=== PATIENT | female | born 1960 | race Caucasian/White ===

== ENCOUNTER 2020-03-02 21:09 | Emergency (ER) | payer OTHER, SELFPAY ==
[2020-03-02 21:34] VITALS: BP 120/64; PULSE 87; RESP 16; TEMP 37.2; O2SAT 97; BMI 32.5
--- NOTE | 2020-03-02 22:23 | ED.LOWEXIN ---
HPI - Extremity Injury (Lower) General Chief Complaint: Extremity Injury, Lower Stated Complaint: knee pain Time Seen by Provider: 03/02/20 22:12 Source: patient Mode of arrival: ambulatory History of Present Illness HPI Narrative: patient states of right knee pain for the past couple days. Also noted a lump to the right oral area. Patient denies trauma or. Denies fevers or chills denies skin changes or lacerations Injury: Right: knee Severity: mild Severity scale (1-10): 2 Exacerbating factors: nothing Related Data Previous Rx's Medication Instructions Recorded trazodone 50 mg tablet 50 mg PO BEDTIME PRN 90 Days #90 02/23/20 tab tramadol 50 mg PO BID PRN #14 tab 03/02/20 Allergies Allergy/AdvReac Type Severity Reaction Status Date / Time Penicillins [PENICILLINS] Allergy Intermediate RASH Unverified 02/08/20 18:07 (CHILDHOOD ALLERGY) penicillin V Allergy Unknown Unverified 01/03/20 00:00 Review of Systems Review of Systems: Constitutional : No Weight loss, No Fever, No Chills, No Night Sweats, No Fatigue, No Malaise ENT/Mouth : No Hearing loss, No Ear Pain, No Nasal Congestion, No Sinus Pain, No Hoarseness, No sore throat, No Rhinorrhea, No Swallowing Difficulty Eyes: No Eye Pain, No Swelling, No Redness, No Foreign Body, No Discharge, No Vision Changes Cardiovascular : No Chest Pain, No SOB, No Dyspnea on Exertion, No Orthopnea, No Edema, No Palpitations Respiratory : No Cough, No Sputum, No Wheezing, No Smoke Exposure, No Dyspnea Gastrointestinal : No Nausea, No Vomiting, No Diarrhea, No Constipation, No abdominal Pain, No Hematochezia, No Melena Genitourinary : no irregular bleeding, No Dysuria, No Urinary Frequency, No Hematuria, No Urinary Incontinence, No Urgency, No Flank Pain, No Urinary Flow Changes, No Hesitancy Musculoskeletal :No Myalgias, No Joint Swelling positiveright knee pain Skin : No Skin Lesions, No rash Neuro : No Weakness, No Numbness, No Paresthesias, No Loss of Consciousness, No Dizziness, No Headache Psych : No Anxiety/Panic, No Depression, No SI/HI/AH/VH, No Social Issues, Heme/Lymph: No Bruising, No Bleeding,No Lymphadenopathy Endocrine : No Polyuria, No Polydipsia, No Temperature Intolerance [facility] Past Medical History Medical History Acute anxiety Depression Insomnia Surgical History Previous back surgery Social History Social History Alcohol intake: former Smoked in Last 30 Days: Yes Substance Use Type: Marijuana Advance Directives: No Advance Directives Information Provided: Yes Physical Exam Vital Signs: Vital Signs: Vital Signs Temp Pulse Resp BP Pulse Ox 03/02/20 21:34 98.9 F 87 16 120/64 97 Body Mass Index 32.5 vital signs reviewed Appearance: Alert. Oriented X3. No acute distress. Eyes: Pupils equal, round and reactive to light. ENT: Pharynx normal. Neck: Normal inspection. Neck supple. No lymph nodes noted. No crepitus CVS: Normal heart rate and rhythm. Pulses normal. Normal S1 and S2 Respiratory: No respiratory distress. Breath sounds normal. No Wheezing. No rales Abdomen: Soft and nontender. No rigidity. No distention. good BS x4 Skin: Skin warm and dry. Normal skin color. Normal skin turgor. Extremities: No lower extremity edema. Neurovascular intact to all extremities. No Lacerations. No Rash. right knee without effusion no erythema no edema. Inferior to right knee lateral lump approximately 2 cm in diameter without erythema Neuro: Oriented X 3. No motor deficit. No sensory deficit. Moving all extermities. No slurred speech. Course Course Course Narrative: I placed a bedside ultrasound knee without any effusion noted. I discussed the patient needs to follow-up with orthopedic with possible cyst or lipoma evaluation MDM - Extremity Injury (Lower) MDM Narrative Medical decision making narrative: 59-year-old female with right knee pain with possible right lateral cyst or lipoma. No acute trauma no signs of septic joint Discharge Plan Discharge Clinical Impression: Cyst of skin Knee pain, right Qualifiers: Chronicity: unspecified Qualified Code(s): M25.561 - Pain in right knee Patient Disposition: Home, Self-Care Instructions: Cyst (ED) Additional Instructions: Thank you for visiting the emergency department today. If your symptoms worsen or do not resolve completely please return to the emergency department immediately or call 911. if he have any questions please call your primary care physician Prescriptions: New tramadol 50 mg tablet 50 mg PO BID PRN (Reason: pain) Qty: 14 RF: 0 No Action trazodone 50 mg tablet 50 mg PO BEDTIME PRN (Reason: sleep) 90 Days Qty: 90 RF: 3 Referrals: Enrique Sterling MD [Physician] - 2 days
--- NOTE | 2020-03-02 22:24 | PC.NURSE ---
DR. MCALLISTER PERFORMED US AT [facility].
== END 2020-03-02 22:37 | disposition home or self-care (01) ==
PROVIDERS: Emergency Provider Emergency Medicine; PCP Internal Medicine
DX: M25.561 Pain in right knee (principal); L72.8 Other follicular cysts of the skin and subcutaneous tissue; F12.90 Cannabis use, unspecified, uncomplicated; Z79.899 Other long term (current) drug therapy
CPT/HCPCS: 99283; 99284

== ENCOUNTER → 2020-03-22 14:40 | Outpatient (BNVA) | payer OTHER, SELFPAY | PROVIDERS: PCP Internal Medicine; Referring Provider Internal Medicine; Visit Provider Nurse Practitioner Family | DX: K21.9 Gastro-esophageal reflux disease without esophagitis (principal); R10.11 Right upper quadrant pain; F41.8 Other specified anxiety disorders; F17.210 Nicotine dependence, cigarettes, uncomplicated; Z88.0 Allergy status to penicillin; Z79.899 Other long term (current) drug therapy | CPT/HCPCS: 99212 ==

== ENCOUNTER 2020-04-29 12:09 | Outpatient (REF) | payer OTHER, SELFPAY ==
--- NOTE | 2020-04-29 12:11 | XR_ITS ---
EXAMINATION: AP STANDING KNEES AND LATERAL AND SUNRISE VIEWS OF THE RIGHT KNEE CLINICAL INFORMATION: Pain COMPARISON: None TECHNIQUE: AP standing view of both knees as well as sunrise and lateral views of the right knee. FINDINGS: AP standing views of both knees demonstrate chondrocalcinosis. No acute fracture or dislocation is evident. There appears to be mild narrowing of the medial joint space compartments bilaterally. [place] view of the right knee demonstrate maintenance of the patellofemoral joint without narrowing of the medial lateral facet space. There is minimal inferior spurring noted. No effusion is seen. XR/XR knee standing BI IMPRESSION: Mild degenerative change of the medial joint space compartments with chondrocalcinosis noted.
--- NOTE | 2020-04-29 12:11 | XR_ITS ---
EXAMINATION: AP STANDING KNEES AND LATERAL AND SUNRISE VIEWS OF THE RIGHT KNEE CLINICAL INFORMATION: Pain COMPARISON: None TECHNIQUE: AP standing view of both knees as well as sunrise and lateral views of the right knee. FINDINGS: AP standing views of both knees demonstrate chondrocalcinosis. No acute fracture or dislocation is evident. There appears to be mild narrowing of the medial joint space compartments bilaterally. [place] view of the right knee demonstrate maintenance of the patellofemoral joint without narrowing of the medial lateral facet space. There is minimal inferior spurring noted. No effusion is seen. XR/XR knee RT 2V IMPRESSION: Mild degenerative change of the medial joint space compartments with chondrocalcinosis noted.
== END 2020-04-29 12:10 | disposition home or self-care (01) ==
LOC: HO.HOSX 12:09
PROVIDERS: Visit Provider Orthopaedic Surgery
DX: M25.561 Pain in right knee (principal)
CPT/HCPCS: 73560; 73565; 99202

== ENCOUNTER 2020-09-16 09:33 | Outpatient (REF) | payer OTHER, SELFPAY ==
--- NOTE | ~2020-09-16 | XR_ITS ---
EXAMINATION: XR LUMBOSACRAL SPINE WITH OBLIQUES CLINICAL INFORMATION: Sciatica COMPARISON: CT abdomen and pelvis 10/06/2019 TECHNIQUE: Lumbar spine is imaged in 5 views: AP, lateral, lateral view coned to lumbosacral junction, and bilateral oblique. FINDINGS: There is normal lumbar segmentation with 5 nonrib-bearing lumbar vertebrae of normal height and normal lumbar lordosis. There is borderline dextrocurvature. There is no lumbar vertebral compression, spondylolisthesis, or spondylolysis. Again, there are post surgical changes L4-L5 with intradiscal cage. No bony destructive process. Degenerative disc changes again noted at L5-S1 with disc narrowing and vertebral spurring. The SI joints and visualized sacrum appear normal. XR/XR lumbar spine 4V min IMPRESSION: 1. Postoperative changes L4-L5 with intradiscal cage. No destructive process. 2. Degenerative disc changes L5-S1. 3. No vertebral compression, spondylolisthesis, or spondylolysis.
== END 2020-09-16 09:34 | disposition home or self-care (01) ==
LOC: HO.HMGCX 09:33
PROVIDERS: PCP Internal Medicine; Visit Provider Physician Assistant Medical
DX: M54.30 Sciatica, unspecified side (principal)
CPT/HCPCS: 72110

== ENCOUNTER → 2020-12-30 15:38 | Outpatient (BNVA) | payer OTHER, SELFPAY | PROVIDERS: PCP Physician Assistant; Referring Provider Physician Assistant; Visit Provider Surgery | DX: M67.40 Ganglion, unspecified site (principal) | CPT/HCPCS: 10021; 20612; 99202 ==

== ENCOUNTER 2021-03-22 08:16 | Inpatient (IN) | payer OTHER, SELFPAY ==
[2021-03-22 08:18] VITALS: BP 177/84; PULSE 80; RESP 18; TEMP 36.6; O2SAT 96; BMI 32.5
--- NOTE | 2021-03-22 08:23 | ED_ITS ---
HPI - Psych General Chief Complaint: Psychiatric Symptoms Stated Complaint: CRISIS Time Seen by Provider: 03/22/21 08:17 Source: patient and old records reviewed Mode of arrival: ambulatory Limitations: no limitations History of Present Illness MD complaint: suicidal ideation and feels depressed Onset (ago): day(s) (several) Duration: getting worse History of same: Yes Relieving factors: none Exacerbating factors: alcohol and drug use Context: recent alcohol abuse, recent drug abuse and significant life stressor Associated psychiatric symptoms: depression and suicidal ideation Associated symptoms: denies other symptoms If self harm: admits thoughts of self harm and has acted on plan Related Data Home Medications Medication Instructions Recorded Confirmed buprenorphine 4 mg-naloxone 1 mg 1 strip SUBLINGUAL DAILY 03/22/21 03/22/21 sublingual film (Suboxone) fluoxetine 40 mg capsule 80 mg PO DAILY 03/22/21 03/22/21 Previous Rx's Medication Instructions Recorded gabapentin 300 mg capsule 300 mg PO TID 30 Days #90 cap 11/21/20 albuterol sulfate 90 mcg/actuation 1 puff PO Q4H PRN #8.5 cap 02/22/21 aerosol inhaler (ProAir HFA) omeprazole 20 mg capsule,delayed 20 mg PO BID #60 cap 03/02/21 release hydroxyzine HCl 25 mg tablet 25 mg PO BEDTIME #30 tab 03/03/21 lorazepam 1 mg tablet 1 mg PO BID PRN 15 Days #30 tab 03/18/21 trazodone 100 mg tablet 100 mg PO BEDTIME 30 Days #30 tab 03/18/21 Allergies Allergy/AdvReac Type Severity Reaction Status Date / Time Penicillins [PENICILLINS] Allergy Intermediate RASH Verified 02/27/21 09:55 (CHILDHOOD ALLERGY) Review of Systems Review of Systems: Constitutional : No Fever, No Chills ENT/Mouth : No Ear Pain, No Nasal Congestion, No sore throat Eyes: No Eye Pain, No Swelling, No Redness Cardiovascular : No Chest Pain, No SOB Respiratory : No Cough, No Sputum, No Dyspnea Gastrointestinal : No Nausea, No Vomiting, No Diarrhea, No Hematochezia, No Melena Genitourinary : No Dysuria, No Urinary Frequency, No Hematuria Musculoskeletal : No Myalgias Skin : No Skin Lesions, No rash Neuro : No Weakness, No Numbness, No Paresthesias, No Dizziness, No Headache Psych : positive Anxiety, positive Depression, positive SI no HI Heme/Lymph: No Lymphadenopathy Endocrine : No Polyuria, No Polydipsia All other systems reviewed and are negative [facility] Past Medical History Attestation statement: The following information was validated with the patient. Medical History Acute anxiety Depression Depression Ganglion cyst GERD (gastroesophageal reflux disease) Insomnia Obese Otitis externa RUQ abdominal pain Tubular adenoma of colon Surgical History History of esophagogastroduodenoscopy (EGD) Hx of colonoscopy Previous back surgery Family History Family History Father Alzheimer disease Mother Stroke Brother Esophageal cancer Other Mental problem Substance abuse Social History Social History Household Members: Significant Other Housing: Apartment Alcohol intake: former Patient Tobacco Use Status: Current everyday Tobacco user Cigarette Packs Per Day: 1 Cigarettes Per Day: 20.0 e-Cigarette/Vaping Use: Currently Using Second Hand Smoke Exposure: No Use of substances other than those prescribed or required for medical reasons: Yes Substance Use Type: Heroin Substance Use Frequency: Recent Binge Last Used Substance: Days (ago) Any prior treatment program specific to substance use: No Advance Directives: No Advance Directives Information Provided: Yes Patient : No service: No Current occupational status: employed 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 Oriented X3. No acute distress. Anxious Eyes: Pupils equal, round and reactive to light. ENT: Pharynx normal. Neck: Normal inspection. Neck supple. CVS: Normal heart rate and rhythm. Pulses normal. Respiratory: No respiratory distress. Breath sounds normal. Abdomen: Soft and non-tender. Skin: Skin warm and dry. Normal skin color. Normal skin turgor. Extremities: No lower extremity edema. No calf ttp Neuro: Oriented X 3. No motor deficit. No sensory deficit. CN2-12 intact Psych: anxious, + SI Course Course Course Narrative: Physician observation started at 11am Patient placed in physician observation because the patient needed more time for CARE team assessment. At the time observation was started the patient's vitals were stable, patient is alert and oriented but slightly anxious Neuro: nonfocal, CV RRR, Lungs clear bed search per CARE team MDM - Psych MDM Narrative Medical decision making narrative: 60 yo female with hx of PTSD, GERD, insomnia here with c/o depression and substance abuse complains of SI - at this time labs, CARE team consult, PRN ativan. Lab Data Result diagrams: 03/22/21 10:15 03/22/21 10:15 Labs: Lab Results 03/22/21 03/22/21 03/22/21 Range/Units 09:39 10:03 10:15 WBC 7.7 (4.8-10.8) X10*3/uL RBC 4.33 (4.20-5.50) X10*6/uL Hgb 12.9 (12.0-16.0) g/dl Hct 38.2 (37.0-47.0) % MCV 88.2 (80.0-98.0) fL MCH 29.8 (27.0-33.0) pg MCHC 33.8 (31.0-35.0) g/dl RDW 15.1 (11.0-16.0) % Plt Count 173 (160-400) X10*3/uL MPV 9.8 (9.4-12.3) fL Immature Gran % (Auto) 0.4 (0.0-0.4) % Neut % (Auto) 69.1 (45-73) % Lymph % (Auto) 23.1 (20-40) % [place] % (Auto) 4.8 (2-11) % Eos % (Auto) 2.3 (0-4) % Baso % (Auto) 0.3 (0-2) % Lymph # (Auto) 1.8 (1.2-4.9) X10*3/uL [place] # (Auto) 0.4 (0.1-1.2) X10*3/uL Eos # (Auto) 0.2 (0.0-0.4) X10*3/uL Baso # (Auto) 0.0 (0.0-0.2) X10*3/uL Abs Immat Gran (auto) 0.03 (0.00-0.03) X10*3/uL Absolute Neuts (auto) 5.30 (2.0-8.3) x10*3/uL Absolute Nucleated RBC 0.000 (0.0-0.012) X10*3/uL Nucleated RBC % (auto) 0.0 (0.0-0.2) /100WBC Sodium (135-145) mmol/L Potassium (3.3-5.1) mmol/L Chloride (96-108) mmol/L Carbon Dioxide (22-29) mmol/L Anion Gap (12-20) BUN (9-16) mg/dL Creatinine (0.5-1.4) mg/dL Estim Creat Clear Calc Estimated GFR Random Glucose (60-115) mg/dL Calcium (8.4-10.2) mg/dL Total Bilirubin (0.0-1.0) mg/dL Direct Bilirubin (0.0-0.5) mg/dL AST (5-31) U/L ALT (0-31) U/L Alkaline Phosphatase (39-117) U/L Total Protein (6.5-8.0) g/dL Albumin (3.5-5.0) g/dL Urine Opiates Screen Not Detected (Not Detect) Urine Fentanyl Screen POSITIVE H (Not Detect) Ur Barbiturates Screen Not Detected (Not Detect) Ur Phencyclidine Scrn Not Detected (Not Detect) Ur Amphetamines Screen Not Detected (Not Detect) U Benzodiazepines Scrn Not Detected (Not Detect) Urine Cocaine Screen Not Detected (Not Detect) U Marijuana (THC) Screen POSITIVE H (Not Detect) Ethyl Alcohol mg/dL COVID-19 (NIURKA) Negative (Negative) COVID-19 Clin Com See Note 03/22/21 03/22/21 Range/Units 10:15 10:15 WBC (4.8-10.8) X10*3/uL RBC (4.20-5.50) X10*6/uL Hgb (12.0-16.0) g/dl Hct (37.0-47.0) % MCV (80.0-98.0) fL MCH (27.0-33.0) pg MCHC (31.0-35.0) g/dl RDW (11.0-16.0) % Plt Count (160-400) X10*3/uL MPV (9.4-12.3) fL Immature Gran % (Auto) (0.0-0.4) % Neut % (Auto) (45-73) % Lymph % (Auto) (20-40) % [place] % (Auto) (2-11) % Eos % (Auto) (0-4) % Baso % (Auto) (0-2) % Lymph # (Auto) (1.2-4.9) X10*3/uL [place] # (Auto) (0.1-1.2) X10*3/uL Eos # (Auto) (0.0-0.4) X10*3/uL Baso # (Auto) (0.0-0.2) X10*3/uL Abs Immat Gran (auto) (0.00-0.03) X10*3/uL Absolute Neuts (auto) (2.0-8.3) x10*3/uL Absolute Nucleated RBC (0.0-0.012) X10*3/uL Nucleated RBC % (auto) (0.0-0.2) /100WBC Sodium 138 (135-145) mmol/L Potassium 3.3 (3.3-5.1) mmol/L Chloride 102 (96-108) mmol/L Carbon Dioxide 26 (22-29) mmol/L Anion Gap 13 (12-20) BUN 16 (9-16) mg/dL Creatinine 0.65 (0.5-1.4) mg/dL Estim Creat Clear Calc 96.5 Estimated GFR > 60 Random Glucose 102 (60-115) mg/dL Calcium 9.2 (8.4-10.2) mg/dL Total Bilirubin 0.6 (0.0-1.0) mg/dL Direct Bilirubin 0.3 (0.0-0.5) mg/dL AST 28 (5-31) U/L ALT 32 H (0-31) U/L Alkaline Phosphatase 113 (39-117) U/L Total Protein 6.8 (6.5-8.0) g/dL Albumin 4.3 (3.5-5.0) g/dL Urine Opiates Screen (Not Detect) Urine Fentanyl Screen (Not Detect) Ur Barbiturates Screen (Not Detect) Ur Phencyclidine Scrn (Not Detect) Ur Amphetamines Screen (Not Detect) U Benzodiazepines Scrn (Not Detect) Urine Cocaine Screen (Not Detect) U Marijuana (THC) Screen (Not Detect) Ethyl Alcohol < 10 mg/dL COVID-19 (NIURKA) (Negative) COVID-19 Clin Com Discharge Plan Discharge Clinical Impression: Polysubstance abuse Depression Qualifiers: Depression Type: unspecified Qualified Code(s): F32.A - Depression, unspecified Prescriptions: No Action gabapentin 300 mg capsule 300 mg PO TID 30 Days Qty: 90 RF: 4 albuterol sulfate [ProAir HFA] 90 mcg/actuation HFA aerosol inhaler 1 puff PO Q4H PRN (Reason: bronchospasm) Qty: 8.5 RF: 0 omeprazole 20 mg capsule,delayed release(DR/EC) 20 mg PO BID Qty: 60 RF: 4 hydroxyzine HCl 25 mg tablet 25 mg PO BEDTIME Qty: 30 RF: 3 buprenorphine-naloxone [Suboxone] 4-1 mg film 1 strip sublingual DAILY RF: 0 fluoxetine 40 mg capsule 80 mg PO DAILY RF: 0 lorazepam 1 mg tablet 1 mg PO BID PRN (Reason: anxiety) 15 Days Qty: 30 RF: 1 trazodone 100 mg tablet 100 mg PO BEDTIME 30 Days Qty: 30 RF: 1
[2021-03-22] MEDS: Buprenorphine/Naloxone 4/1 mg FILM 1 FILM SUBLINGUAL (09:49)
[2021-03-22] MEDS: FLUoxetine HCl 20 MG CAPSULE 80 MG PO (09:49)
[2021-03-22] MEDS: LORazepam 1 MG TABLET PO (09:50)
[2021-03-22] MEDS: Gabapentin 300 MG CAPSULE PO ×2 (09:50→20:37)
[2021-03-22 10:19] LABS: MANUAL DIFF FLAG NO
[2021-03-22 10:22] LABS: COVID-19 Test Negative (Negative)
[2021-03-22 10:23] LABS: Amphetamine Screen Urine Not Detected (Not Detect); Barbiturates, Urine Not Detected (Not Detect); Benzodiazepines Screen Urine Not Detected (Not Detect); Cannabinoid Screen Urine POSITIVE (Not Detect); Cocaine Screen Urine Not Detected (Not Detect); Fentanyl, urine POSITIVE (Not Detect); Opiate Screen Urine Not Detected (Not Detect); Phencyclidine Screen Urine Not Detected (Not Detect)
[2021-03-22 10:43] LABS: Ethanol < 10 mg/dL
[2021-03-22 10:47] LABS: Alanine Aminotransferase 32 U/L (0-31); Albumin Level 4.3 g/dL (3.5-5.0); Alkaline Phosphatase 113 U/L (39-117); Anion Gap 13 (12-20); Aspartate Amino Transferase 28 U/L (5-31); Bilirubin Direct 0.3 mg/dL (0.0-0.5); Bilirubin Total 0.6 mg/dL (0.0-1.0); Blood Urea Nitrogen 16 mg/dL (9-16); Calcium 9.2 mg/dL (8.4-10.2); Carbon Dioxide 26 mmol/L (22-29); Chloride 102 mmol/L (96-108); Creatinine Clr Calc Pharmacy 96.5; Estimated Glomerular Filt Rate > 60; Glucose Random 102 mg/dL (60-115); Potassium 3.3 mmol/L (3.3-5.1); Sodium 138 mmol/L (135-145); Total Protein 6.8 g/dL (6.5-8.0)
[2021-03-22 10:52] LABS: Basophils Percent Auto 0.3 % (0-2); Eosinophils Absolute Auto 0.2 X10*3/uL (0.0-0.4); Eosinophils Percent Auto 2.3 % (0-4); Hematocrit 38.2 % (37.0-47.0); Hemoglobin 12.9 g/dl (12.0-16.0); Imm Gran Abs Auto 0.03 X10*3/uL (0.00-0.03); Imm Gran Pct Auto 0.4 % (0.0-0.4); Lymphocytes Absolute Auto 1.8 X10*3/uL (1.2-4.9); Lymphocytes Percent Auto 23.1 % (20-40); Mean Corpuscular HGB Conc 33.8 g/dl (31.0-35.0); Mean Corpuscular Hemoglobin 29.8 pg (27.0-33.0); Mean Corpuscular Volume 88.2 fL (80.0-98.0); Mean Platelet Volume 9.8 fL (9.4-12.3); Monocytes Absolute Auto 0.4 X10*3/uL (0.1-1.2); Monocytes Percent Auto 4.8 % (2-11); Neutrophils Percent Auto 69.1 % (45-73); Platelet Count 173 X10*3/uL (160-400); Red Blood Count 4.33 X10*6/uL (4.20-5.50); Red Cell Distribution Width 15.1 % (11.0-16.0); White Blood Count 7.7 X10*3/uL (4.8-10.8)
[2021-03-22 12:00] VITALS: BP 134/65; PULSE 80; RESP 14; TEMP 36.3; O2SAT 96
[2021-03-22] MEDS: Nicotine 21 MG PATCH.TD24 TRANSDERMA (13:24)
[2021-03-22 14:21] VITALS: BP 139/73; PULSE 77; RESP 18; TEMP 36.8; O2SAT 98
[2021-03-22 17:51] VITALS: BP 142/82; PULSE 115; RESP 20; TEMP 37.4; O2SAT 96
[2021-03-22 18:04] VITALS: BP 167/84; PULSE 72; RESP 16; TEMP 35.7; O2SAT 99; BMI 31.3
--- NOTE | 2021-03-22 19:24 | PC.ADMIT ---
Addendum entered by Moe Polanco RN 03/22/21 19:34: Pt reports depression, denies SI/HI. denies auditory and visual hallucination. Original Note: Pt is a 60 years old female admitted for depression anxiety and SI after attempting to complete suicide. She relapsed on heroin after quitting some years ago. Pt is alert and oriented X4, VSS, ANDERSON negative and covid negative. Pt appears her stated age and engaged in the assessment. She states she hopes to get her meds fixed. Pt reports episodes of confusion when driving, poor sleep with nightmares. Speech is clear and coherent, with normal rhythm tone and maxwell. urologic nurse provider notified, admit/transfer order obtained.
[2021-03-22] MEDS: Omeprazole 20 MG CAPSULE.DR PO (20:37)
[2021-03-22] MEDS: traZODone HCL 100 MG TABLET PO (20:37)
[2021-03-22] MEDS: hydrOXYzine HCL 25 MG TABLET PO (20:37)
[2021-03-23 06:00] VITALS: BP 135/71; PULSE 61; TEMP 36.3; O2SAT 95
--- NOTE | 2021-03-23 08:36 | HO.PSYADMNOT ---
HPI Date of Service: 03/23/21 Chief Complaint: Depression SI Sources of Information: patient interviewed, chart reviewed and crisis/core team assessment reviewed HPI Subjective Notes: Conditional Voluntary Healthcare Proxy: No Guardianship: No Medical Problems Affecting Mental Status: No Narrative: 60 MWF presented to ED after recent relapse on Heroin / fentanyl and possible intended OD. (describes it as impulsive). Initially identified no ppt but later : only brothers anniversary on Feb 21. He of CA esophagus. Pt also drinking 28 units of ETOH / week. Identifies it as a problem. Relapsed after 15 years clean off heroin. Hx IVDA. Denies Cocaine. Recent increase in Prozac from 40 to 80 mg caused anxiety. No psychosis/ bipolarity Hx unspecified PTSD which she did not elaborate Past Psychiatric History: No psych providers. Denies attempts/hospitalization Medical Evaluation Reviewed: Yes [facility] Medical History Acute anxiety Depression Depression Ganglion cyst GERD (gastroesophageal reflux disease) Insomnia Obese Otitis externa RUQ abdominal pain Tubular adenoma of colon Surgical History History of esophagogastroduodenoscopy (EGD) Hx of colonoscopy Previous back surgery Family History: Extensive subs abuse in family Social History: Lives with H . 2 grown children are local. 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 Substance History: Opioids: clean x 15 years, till recent relapse. Upset that it was heroin laced with fentanyl. Hx IVDA ETOH: Heavy weekly use. 28 units/week. Dependant pattern Trauma History: + but not elaborated Diagnostics Vital Signs (24Hr): Vital Signs - 24 hr 03/22/21 12:00 03/22/21 14:21 03/22/21 17:51 Temperature 97.4 F 98.3 F 99.4 F Pulse Rate 80 77 115 H Respiratory Rate 14 18 20 Blood Pressure 134/65 139/73 142/82 H Pulse Oximetry 96 98 96 03/22/21 18:04 03/23/21 06:00 Temperature 96.3 F L 97.3 F Pulse Rate 72 61 Respiratory Rate 16 Blood Pressure 167/84 H 135/71 Pulse Oximetry 99 95 Body Mass Index 31.3 Labs Results: 03/22/21 10:15 03/22/21 10:15 Labs: Laboratory Results - last 48 hr 03/22/21 03/22/21 03/22/21 09:39 10:03 10:15 WBC 7.7 RBC 4.33 Hgb 12.9 Hct 38.2 MCV 88.2 MCH 29.8 MCHC 33.8 RDW 15.1 Plt Count 173 MPV 9.8 Immature Gran % (Auto) 0.4 Neut % (Auto) 69.1 Lymph % (Auto) 23.1 [place] % (Auto) 4.8 Eos % (Auto) 2.3 Baso % (Auto) 0.3 Lymph # (Auto) 1.8 [place] # (Auto) 0.4 Eos # (Auto) 0.2 Baso # (Auto) 0.0 Abs Immat Gran (auto) 0.03 Absolute Neuts (auto) 5.30 Absolute Nucleated RBC 0.000 Nucleated RBC % (auto) 0.0 Sodium Potassium Chloride Carbon Dioxide Anion Gap BUN Creatinine Estim Creat Clear Calc Estimated GFR Random Glucose Calcium Total Bilirubin Direct Bilirubin AST ALT Alkaline Phosphatase Total Protein Albumin Urine Opiates Screen Not Detected Urine Fentanyl Screen POSITIVE H Ur Barbiturates Screen Not Detected Ur Phencyclidine Scrn Not Detected Ur Amphetamines Screen Not Detected U Benzodiazepines Scrn Not Detected Urine Cocaine Screen Not Detected U Marijuana (THC) Screen POSITIVE H Ethyl Alcohol COVID-19 ([facility]URKA) Negative COVID-19 Clin Com See Note 03/22/21 03/22/21 10:15 10:15 WBC RBC Hgb Hct MCV MCH MCHC RDW Plt Count MPV Immature Gran % (Auto) Neut % (Auto) Lymph % (Auto) [place] % (Auto) Eos % (Auto) Baso % (Auto) Lymph # (Auto) [place] # (Auto) Eos # (Auto) Baso # (Auto) Abs Immat Gran (auto) Absolute Neuts (auto) Absolute Nucleated RBC Nucleated RBC % (auto) Sodium 138 Potassium 3.3 Chloride 102 Carbon Dioxide 26 Anion Gap 13 BUN 16 Creatinine 0.65 Estim Creat Clear Calc 96.5 Estimated GFR > 60 Random Glucose 102 Calcium 9.2 Total Bilirubin 0.6 Direct Bilirubin 0.3 AST 28 ALT 32 H Alkaline Phosphatase 113 Total Protein 6.8 Albumin 4.3 Urine Opiates Screen Urine Fentanyl Screen Ur Barbiturates Screen Ur Phencyclidine Scrn Ur Amphetamines Screen U Benzodiazepines Scrn Urine Cocaine Screen U Marijuana (THC) Screen Ethyl Alcohol < 10 COVID-19 ([facility]KA) COVID-19 Clin Com Meds/Allergies Meds Home Medications Acetaminophen (Acetaminophen 325 Mg Tablet) 650 mg PO Q6H PRN PRN Reason: Headache/Pain Mild Scale (1-3) Al Hydroxide/Mg Hydroxide (Magnesium Hydrox/Alum Hydrox 30 Ml Oral.Susp) 30 ml PO Q6H PRN PRN Reason: Heartburn/Nausea Albuterol Sulfate (Albuterol Sulfate 90 Mcg 8 Gm Inhaler) 1 puff INHALE Q4H PRN PRN Reason: bronchospasm Buprenorphine/Naloxone (Buprenorphine/Naloxone 4/1 Mg Film) 1 film SUBLINGUAL DAILY [facility] Last Admin: 03/23/21 08:46 Dose: 1 film Documented by: Fluoxetine HCl (Fluoxetine Hcl 20 Mg Capsule) 60 mg PO DAILY [facility] Folic Acid (Folic Acid 1 Mg Tablet) 1 mg PO DAILY [facility] Last Admin: 03/23/21 11:17 Dose: 1 mg Documented by: Gabapentin (Gabapentin 300 Mg Capsule) 300 mg PO TID [facility] Last Admin: 03/23/21 14:23 Dose: 300 mg Documented by: Hydroxyzine HCl (Hydroxyzine Hcl 25 Mg Tablet) 25 mg PO BEDTIME [facility] Last Admin: 03/22/21 20:37 Dose: 25 mg Documented by: Hydroxyzine HCl (Hydroxyzine Hcl 25 Mg Tablet) 25 mg PO BEDTIME PRN PRN Reason: Anxiety Ibuprofen (Ibuprofen 600 Mg Tablet) 600 mg PO Q8H PRN PRN Reason: Pain, Moderate (Pain Scale 4-6 Last Admin: 03/23/21 11:19 Dose: 600 mg Documented by: Lorazepam (Lorazepam 1 Mg Tablet) 1 mg PO Q4H PRN PRN Reason: Alcohol Withdrawal Magnesium Hydroxide (Milk Of Magnesia 30 Ml Oral.Susp) 30 ml PO DAILY PRN PRN Reason: Constipation Nicotine (Nicotine 21 Mg Patch.Td24) 21 mg TRANSDERMA DAILY [facility] Last Admin: 03/23/21 11:17 Dose: 21 mg Documented by: Nicotine Polacrilex (Nicotine Polacrilex 2 Mg Gum) 2 mg BUCCAL Q2H PRN PRN Reason: Nicotine Cravings Omeprazole (Omeprazole 20 Mg Capsule.Dr) 20 mg PO BID@0630,1630 [facility] Last Admin: 03/23/21 08:45 Dose: 20 mg Documented by: Thiamine HCl (Thiamine Hcl 100 Mg Tablet) 100 mg PO DAILY [facility] Last Admin: 03/23/21 11:17 Dose: 100 mg Documented by: Trazodone HCl (Trazodone Hcl 100 Mg Tablet) 100 mg PO BEDTIME [facility] Last Admin: 03/22/21 20:37 Dose: 100 mg Documented by: Allergies Allergies Allergy/AdvReac Type Severity Reaction Status Date / Time Penicillins [PENICILLINS] Allergy Intermediate RASH Verified 02/27/21 09:55 (CHILDHOOD ALLERGY) Mental Status Exam Mental Status Exam Patient Appearance: Well Grooomed Patient Orientation: Person, Place, Time and Situation Level of Consciousness: Awake and Appropriate Patient Behavior: Appropriate Mood Description: Depressed Affect Description: Depressed Patient Cognition Impaired: No Ability to Follow Directions: Excellent Speech Pattern: Clear Memory Description: Intact Hallucinations: None Delusions: Not Present Thought Process: Intact Thought Content: positive for Intact Depressive Symptoms: Increased Anxiety, Feelings of Guilt, Thoughts of /Suicide, Low Self Esteem and Loss of Energy Judgement: Fair Assessment & Plan Assessment & Plan (1) PTSD (post-traumatic stress disorder): Status: Acute Code(s): F43.10 - Post-traumatic stress disorder, unspecified (2) MDD (major depressive disorder): Status: Acute Qualifiers: Major depression recurrence: recurrent Active/Remission status: currently active Major depression episode severity: moderate Qualified Code(s): F33.1 - Major depressive disorder, recurrent, moderate Code(s): F32.9 - Major depressive disorder, single episode, unspecified (3) Alcohol use disorder, severe, dependence: Status: Acute Code(s): F10.20 - Alcohol dependence, uncomplicated (4) Opioid abuse: Status: Acute Code(s): F11.10 - Opioid abuse, uncomplicated Assessment and Plan: 1. q15, cv 2. Increase Prozac to 60 3. ETOH detox protocol. 4. Collateral from H Refer to PHP. Patient educated on: diagnosis Informed Consent: understands Reason for continued inpatient stay Substantial Risk for: harm to self
[2021-03-23] MEDS: Omeprazole 20 MG CAPSULE.DR PO (08:45)
[2021-03-23] MEDS: FLUoxetine HCl 20 MG CAPSULE 80 MG PO (08:45)
[2021-03-23] MEDS: Buprenorphine/Naloxone 4/1 mg FILM 1 FILM SUBLINGUAL (08:46)
[2021-03-23] MEDS: Gabapentin 300 MG CAPSULE PO ×3 (08:46→20:08)
[2021-03-23] MEDS: Thiamine HCL 100 MG TABLET PO (11:17)
[2021-03-23] MEDS: Nicotine 21 MG PATCH.TD24 TRANSDERMA (11:17)
[2021-03-23] MEDS: Folic Acid 1 MG TABLET PO (11:17)
[2021-03-23] MEDS: Ibuprofen 600 MG TABLET PO ×2 (11:19→20:10)
[2021-03-23] MEDS: FLUoxetine HCl 20 MG CAPSULE PO (11:21)
[2021-03-23 14:24] VITALS: BP 110/55; PULSE 71; RESP 16; TEMP 36.7; O2SAT 100
[2021-03-23] MEDS: LORazepam 1 MG TABLET PO (19:06)
[2021-03-23 19:27] VITALS: BP 129/84; PULSE 68; TEMP 36.6
[2021-03-23] MEDS: traZODone HCL 100 MG TABLET PO (20:07)
[2021-03-23] MEDS: hydrOXYzine HCL 25 MG TABLET PO (20:07)
[2021-03-24 06:00] VITALS: BP 155/82; PULSE 55; RESP 18; TEMP 36.1; O2SAT 97
[2021-03-24] MEDS: Omeprazole 20 MG CAPSULE.DR PO ×2 (07:11→16:44)
[2021-03-24] MEDS: Gabapentin 300 MG CAPSULE PO ×3 (08:36→21:48)
[2021-03-24] MEDS: Thiamine HCL 100 MG TABLET PO (08:36)
[2021-03-24] MEDS: Nicotine 21 MG PATCH.TD24 TRANSDERMA (08:37)
[2021-03-24] MEDS: FLUoxetine HCl 20 MG CAPSULE 60 MG PO (08:37)
[2021-03-24] MEDS: Buprenorphine/Naloxone 4/1 mg FILM 1 FILM SUBLINGUAL (08:38)
[2021-03-24] MEDS: Folic Acid 1 MG TABLET PO (08:47)
--- NOTE | 2021-03-24 11:17 | PC.NURSE ---
PT REPORTS SHE HAS ALREADY RECIEVED THE FLU VAC THIS YEAR.
--- NOTE | 2021-03-24 12:01 | P.PNPSI_ITS ---
Subjective Subjective Date of Service: 03/24/21 Reason For Visit: Depression SI Subjective Notes: Conditional Voluntary Interim History: Alessandra reports that she feels very anxious, overwhelmed, depressed in that she worries about current alcohol use and notes that it is a problem. Pt endorses feeling hopeless, racing thoughts. She reports sleep is improving since admission. She reports passive suicidal ideation but denies any plan or intent to hurt herself. Pt reports she has supportive and adult children. Per nursing, pt mostly in room, anxious, no behavioral concerns. Pt reports increased anxious mood with increase prozac 3 weeks ago by PCP from 40mg to 80mg. Medication Compliance: Yes Side effects from medications: No Attending Groups: Intermittent Mental Status Exam Mental Status Exam Narrative: Appearance: hospital gown, fair hygiene in NAD Behavior: cooperative, somewhat irritable psychomotor: no agitation or retardation noted Speech:clear, normal rate/rhythm/volume, spontaneous Thought process: linear Thought content: no signs of psychosis, feeling hopeless, anxious and depressed Mood: depressed, anxious Affect: anxious mood, restless SI:passive, no plan or intent HI:none VH/AH:none Delusions: none Insight/judgment:fair x 2. Memory/cog: alert, oriented x 3. grossly intact to conversational testing. Diagnostics Vital Signs (24Hr): Vital Signs - 24 hr 03/23/21 19:27 03/24/21 06:00 Temperature 98 F 96.9 F Pulse Rate 68 55 Respiratory Rate 18 Blood Pressure 129/84 155/82 H Pulse Oximetry 97 Body Mass Index 31.3 Labs Results: 03/22/21 10:15 03/22/21 10:15 Medications Medications Current Medications Acetaminophen (Acetaminophen 325 Mg Tablet) 650 mg PO Q6H PRN PRN Reason: Headache/Pain Mild Scale (1-3) Al Hydroxide/Mg Hydroxide (Magnesium Hydrox/Alum Hydrox 30 Ml Oral.Susp) 30 ml PO Q6H PRN PRN Reason: Heartburn/Nausea Albuterol Sulfate (Albuterol Sulfate 90 Mcg 8 Gm Inhaler) 1 puff INHALE Q4H PRN PRN Reason: bronchospasm Buprenorphine/Naloxone (Buprenorphine/Naloxone 4/1 Mg Film) 1 film SUBLINGUAL DAILY [facility] Last Admin: 03/24/21 08:38 Dose: 1 film Documented by: Fluoxetine HCl (Fluoxetine Hcl 20 Mg Capsule) 60 mg PO DAILY [facility] Last Admin: 03/24/21 08:37 Dose: 60 mg Documented by: Folic Acid (Folic Acid 1 Mg Tablet) 1 mg PO DAILY [facility] Last Admin: 03/24/21 08:47 Dose: 1 mg Documented by: Gabapentin (Gabapentin 300 Mg Capsule) 300 mg PO TID [facility] Last Admin: 03/24/21 14:37 Dose: 300 mg Documented by: Hydroxyzine HCl (Hydroxyzine Hcl 25 Mg Tablet) 25 mg PO BEDTIME [facility] Last Admin: 03/23/21 20:07 Dose: 25 mg Documented by: Hydroxyzine HCl (Hydroxyzine Hcl 25 Mg Tablet) 25 mg PO BEDTIME PRN PRN Reason: Anxiety Ibuprofen (Ibuprofen 600 Mg Tablet) 600 mg PO Q8H PRN PRN Reason: Pain, Moderate (Pain Scale 4-6 Last Admin: 03/24/21 14:37 Dose: 600 mg Documented by: Lorazepam (Lorazepam 1 Mg Tablet) 1 mg PO Q4H PRN PRN Reason: Alcohol Withdrawal Last Admin: 03/23/21 19:06 Dose: 1 mg Documented by: Lorazepam (Lorazepam 1 Mg Tablet) 1 mg PO ONCE ONE Stop: 03/24/21 15:59 Magnesium Hydroxide (Milk Of Magnesia 30 Ml Oral.Susp) 30 ml PO DAILY PRN PRN Reason: Constipation Nicotine (Nicotine 21 Mg Patch.Td24) 21 mg TRANSDERMA DAILY [facility] Last Admin: 03/24/21 08:37 Dose: 21 mg Documented by: Nicotine Polacrilex (Nicotine Polacrilex 2 Mg Gum) 2 mg BUCCAL Q2H PRN PRN Reason: Nicotine Cravings Omeprazole (Omeprazole 20 Mg Capsule.) 20 mg PO BID@0630,1630 [facility] Last Admin: 03/24/21 07:11 Dose: 20 mg Documented by: Thiamine HCl (Thiamine Hcl 100 Mg Tablet) 100 mg PO DAILY [facility] Last Admin: 03/24/21 08:36 Dose: 100 mg Documented by: Trazodone HCl (Trazodone Hcl 100 Mg Tablet) 100 mg PO BEDTIME [facility] Last Admin: 03/23/21 20:07 Dose: 100 mg Documented by: Allergies Allergies Allergy/AdvReac Type Severity Reaction Status Date / Time Penicillins [PENICILLINS] Allergy Intermediate RASH Verified 02/27/21 09:55 (CHILDHOOD ALLERGY) Assessment & Plan Assessment & Plan (1) PTSD (post-traumatic stress disorder): Status: Acute Code(s): F43.10 - Post-traumatic stress disorder, unspecified (2) MDD (major depressive disorder): Qualifiers: Major depression recurrence: recurrent Active/Remission status: currently active Major depression episode severity: moderate Qualified Code(s): F33.1 - Major depressive disorder, recurrent, moderate Status: Acute Code(s): F32.9 - Major depressive disorder, single episode, unspecified (3) Alcohol use disorder, severe, dependence: Status: Acute Code(s): F10.20 - Alcohol dependence, uncomplicated (4) Opioid abuse: Status: Acute Code(s): F11.10 - Opioid abuse, uncomplicated Assessment and Plan: Mrs. Thomas is a 60 year-old woman with hx of opioid use disorder, alcohol use disorder, MDD who self presented to [facility] ED after intentional OD on heroin as suicide attempt. 1. q15, cv 2. Continue Prozac to 60 3. ETOH detox protocol. 4. Collateral from H Refer to PHP. I spent minutes with the patient and/or on the patient floor today, greater than?50% of which was spent counseling/coordinating care. Reason for contiued inpatient stay Substantial Risk for: harm to self
[2021-03-24] MEDS: Ibuprofen 600 MG TABLET PO (14:37)
[2021-03-24] MEDS: LORazepam 1 MG TABLET PO (16:44)
[2021-03-24 18:00] VITALS: BP 139/65; PULSE 70
--- NOTE | 2021-03-24 20:19 | PC.NURSE ---
Pt submitted a 3-Day Notice on Wednesday03/24/2021 up on 03/27/2021.
[2021-03-24 21:48] VITALS: BP 139/65; PULSE 70
[2021-03-24] MEDS: traZODone HCL 100 MG TABLET PO (21:48)
[2021-03-24] MEDS: cloNIDine HCL 0.1 MG TABLET PO (21:48)
[2021-03-24] MEDS: hydrOXYzine HCL 25 MG TABLET PO (21:48)
[2021-03-25 06:00] VITALS: BP 176/75; PULSE 76; TEMP 35.6; O2SAT 98
[2021-03-25] MEDS: Omeprazole 20 MG CAPSULE.DR PO ×2 (06:38→15:42)
[2021-03-25] MEDS: Nicotine 21 MG PATCH.TD24 TRANSDERMA (08:53)
[2021-03-25 08:54] VITALS: BP 134/64; PULSE 60
[2021-03-25] MEDS: cloNIDine HCL 0.1 MG TABLET PO ×2 (08:54→20:53)
[2021-03-25] MEDS: Buprenorphine/Naloxone 4/1 mg FILM 1 FILM SUBLINGUAL (08:54)
[2021-03-25] MEDS: Gabapentin 300 MG CAPSULE PO ×3 (08:55→20:54)
[2021-03-25] MEDS: Thiamine HCL 100 MG TABLET PO (08:55)
[2021-03-25] MEDS: Folic Acid 1 MG TABLET PO (08:55)
[2021-03-25] MEDS: FLUoxetine HCl 20 MG CAPSULE 60 MG PO (08:55)
[2021-03-25] MEDS: Ibuprofen 600 MG TABLET PO (09:38)
--- NOTE | 2021-03-25 14:23 | P.PNPSI_ITS ---
Subjective Subjective Date of Service: 03/25/21 Reason For Visit: Depression SI Subjective Notes: Conditional Voluntary and 3 Day Interim History: Alessandra presents as much less anxious and tearful. Pt reports she slept well. She reports feeling calmer and ready to return home. She asks about scheduled ativan - we discussed risk of misuse abuse as she continues to w ork toward recovery of alcohol and now relapsed on heroin. Pt denies si/HI. Per nursing, pt visible, attending groups, no behavioral concerns. Medication Compliance: Yes Side effects from medications: No Review of Systems Review of Systems Constitutional : No Fever, No Chills ENT/Mouth : No Ear Pain, No Nasal Congestion, No sore throat Eyes: No Eye Pain, No Swelling, No Redness Cardiovascular : No Chest Pain, No SOB Respiratory : No Cough, No Sputum, No Dyspnea Gastrointestinal : No Nausea, No Vomiting, No Diarrhea, No Hematochezia, No Melena Genitourinary : No Dysuria, No Urinary Frequency, No Hematuria Musculoskeletal : No Myalgias Skin : No Skin Lesions, No rash Neuro : No Weakness, No Numbness, No Paresthesias, No Dizziness, No Headache Psych : positive Anxiety, positive Depression, positive SI no HI Heme/Lymph: No Lymphadenopathy Endocrine : No Polyuria, No Polydipsia All other systems reviewed and are negative Mental Status Exam Mental Status Exam Narrative: Appearance: hospital gown, fair hygiene in NAD Behavior: cooperative, somewhat irritable psychomotor: no agitation or retardation noted Speech:clear, normal rate/rhythm/volume, spontaneous Thought process: linear Thought content: no signs of psychosis, feeling hopeless, anxious and depressed Mood: depressed, anxious Affect: anxious mood, restless SI:passive, no plan or intent HI:none VH/AH:none Delusions: none Insight/judgment:fair x 2. Memory/cog: alert, oriented x 3. grossly intact to conversational testing. Diagnostics Vital Signs (24Hr): Vital Signs - 24 hr 03/24/21 18:00 03/24/21 21:48 03/25/21 06:00 Temperature 96.0 F L Pulse Rate 70 70 76 Blood Pressure 139/65 139/65 176/75 H Pulse Oximetry 98 03/25/21 08:54 Temperature Pulse Rate 60 Blood Pressure 134/64 Pulse Oximetry Body Mass Index 31.3 Labs Results: 03/22/21 10:15 03/22/21 10:15 Medications Medications Current Medications Acetaminophen (Acetaminophen 325 Mg Tablet) 650 mg PO Q6H PRN PRN Reason: Headache/Pain Mild Scale (1-3) Al Hydroxide/Mg Hydroxide (Magnesium Hydrox/Alum Hydrox 30 Ml Oral.Susp) 30 ml PO Q6H PRN PRN Reason: Heartburn/Nausea Last Admin: 03/25/21 15:42 Dose: 30 ml Documented by: Albuterol Sulfate (Albuterol Sulfate 90 Mcg 8 Gm Inhaler) 1 puff INHALE Q4H PRN PRN Reason: bronchospasm Buprenorphine/Naloxone (Buprenorphine/Naloxone 4/1 Mg Film) 1 film SUBLINGUAL DAILY [facility] Last Admin: 03/25/21 08:54 Dose: 1 film Documented by: Clonidine HCl (Clonidine Hcl 0.1 Mg Tablet) 0.1 mg PO BID [facility]; Protocol Last Admin: 03/25/21 08:54 Dose: 0.1 mg Documented by: Docusate Sodium (Docusate Sodium 100 Mg Capsule) 100 mg PO BID [facility] Fluoxetine HCl (Fluoxetine Hcl 20 Mg Capsule) 60 mg PO DAILY [facility] Last Admin: 03/25/21 08:55 Dose: 60 mg Documented by: Folic Acid (Folic Acid 1 Mg Tablet) 1 mg PO DAILY [facility] Last Admin: 03/25/21 08:55 Dose: 1 mg Documented by: Gabapentin (Gabapentin 300 Mg Capsule) 300 mg PO TID [facility] Last Admin: 03/25/21 15:42 Dose: 300 mg Documented by: Hydroxyzine HCl (Hydroxyzine Hcl 25 Mg Tablet) 25 mg PO BEDTIME [facility] Last Admin: 03/24/21 21:48 Dose: 25 mg Documented by: Hydroxyzine HCl (Hydroxyzine Hcl 25 Mg Tablet) 25 mg PO BEDTIME PRN PRN Reason: Anxiety Ibuprofen (Ibuprofen 600 Mg Tablet) 600 mg PO Q8H PRN PRN Reason: Pain, Moderate (Pain Scale 4-6 Last Admin: 03/25/21 09:38 Dose: 600 mg Documented by: Lorazepam (Lorazepam 1 Mg Tablet) 1 mg PO Q4H PRN PRN Reason: Alcohol Withdrawal Last Admin: 03/23/21 19:06 Dose: 1 mg Documented by: Magnesium Hydroxide (Milk Of Magnesia 30 Ml Oral.Susp) 30 ml PO DAILY PRN PRN Reason: Constipation Nicotine (Nicotine 21 Mg Patch.Td24) 21 mg TRANSDERMA DAILY [facility] Last Admin: 03/25/21 08:53 Dose: 21 mg Documented by: Nicotine Polacrilex (Nicotine Polacrilex 2 Mg Gum) 2 mg BUCCAL Q2H PRN PRN Reason: Nicotine Cravings Omeprazole (Omeprazole 20 Mg Capsule.Dr) 20 mg PO BID@0630,1630 [facility] Last Admin: 03/25/21 15:42 Dose: 20 mg Documented by: Thiamine HCl (Thiamine Hcl 100 Mg Tablet) 100 mg PO DAILY [facility] Last Admin: 03/25/21 08:55 Dose: 100 mg Documented by: Trazodone HCl (Trazodone Hcl 100 Mg Tablet) 100 mg PO BEDTIME [facility] Last Admin: 03/24/21 21:48 Dose: 100 mg Documented by: Allergies Allergies Allergy/AdvReac Type Severity Reaction Status Date / Time Penicillins [PENICILLINS] Allergy Intermediate RASH Verified 02/27/21 09:55 (CHILDHOOD ALLERGY) Assessment & Plan Assessment & Plan (1) PTSD (post-traumatic stress disorder): Status: Acute Code(s): F43.10 - Post-traumatic stress disorder, unspecified (2) MDD (major depressive disorder): Qualifiers: Major depression recurrence: recurrent Active/Remission status: zora roman active Major depression episode severity: moderate Qualified Code(s): F33.1 - Major depressive disorder, recurrent, moderate Status: Acute Code(s): F32.9 - Major depressive disorder, single episode, unspecified (3) Alcohol use disorder, severe, dependence: Status: Acute Code(s): F10.20 - Alcohol dependence, uncomplicated (4) Opioid abuse: Status: Acute Code(s): F11.10 - Opioid abuse, uncomplicated Assessment and Plan: Mrs. Thomas is a 60 year-old woman with hx of opioid use disorder, alcohol use disorder, MDD who self presented to [facility] ED after intentional OD on heroin as suicide attempt. 1. q15, cv 2. Continue Prozac to 60 3. ETOH detox protocol. 4. Collateral from H Refer to PHP. I spent minutes with the patient and/or on the patient floor today, greater than?50% of which was spent counseling/coordinating care. Reason for contiued inpatient stay Substantial Risk for: stable for discharge
[2021-03-25] MEDS: Magnesium Hydrox/Alum Hydrox 30 ML ORAL.SUSP PO (15:42)
[2021-03-25] MEDS: LORazepam 1 MG TABLET PO (18:40)
[2021-03-25] MEDS: Hydrocortisone 2.5 % Rectal Cr 30 GM TUBE 1 APPL PR (18:48)
[2021-03-25 20:45] VITALS: BP 144/60; PULSE 78; TEMP 35.9; O2SAT 95
[2021-03-25 20:53] VITALS: BP 146/60; PULSE 78
[2021-03-25] MEDS: traZODone HCL 100 MG TABLET PO (20:54)
[2021-03-25] MEDS: hydrOXYzine HCL 25 MG TABLET PO (20:54)
[2021-03-25] MEDS: LORazepam 0.5 MG TABLET PO (20:54)
[2021-03-25] MEDS: Docusate Sodium 100 MG CAPSULE PO (21:20)
[2021-03-26 06:00] VITALS: BP 118/60; PULSE 54; RESP 18; TEMP 36.5; O2SAT 98
[2021-03-26] MEDS: Omeprazole 20 MG CAPSULE.DR PO ×2 (06:09→15:59)
[2021-03-26] MEDS: Nicotine 21 MG PATCH.TD24 TRANSDERMA (08:34)
[2021-03-26 08:35] VITALS: BP 158/63; PULSE 54
[2021-03-26] MEDS: Docusate Sodium 100 MG CAPSULE PO ×2 (08:35→20:25)
[2021-03-26] MEDS: FLUoxetine HCl 20 MG CAPSULE 60 MG PO (08:35)
[2021-03-26] MEDS: Folic Acid 1 MG TABLET PO (08:35)
[2021-03-26] MEDS: Gabapentin 300 MG CAPSULE PO ×3 (08:35→20:25)
[2021-03-26] MEDS: Thiamine HCL 100 MG TABLET PO (08:35)
[2021-03-26] MEDS: cloNIDine HCL 0.1 MG TABLET PO ×2 (08:35→20:21)
[2021-03-26] MEDS: LORazepam 0.5 MG TABLET PO ×2 (08:35→20:25)
[2021-03-26] MEDS: Buprenorphine/Naloxone 4/1 mg FILM 1 FILM SUBLINGUAL (08:36)
[2021-03-26] MEDS: LORazepam 1 MG TABLET PO (15:59)
[2021-03-26] MEDS: Ibuprofen 600 MG TABLET PO (16:05)
[2021-03-26] MEDS: Magnesium Citrate 300 ML SOLUTION 150 ML PO (16:55)
--- NOTE | 2021-03-26 17:01 | HO.PSYCHPN ---
Subjective Subjective Date of Service: 03/26/21 Reason For Visit: Depression SI Interim History: Alessandra presents as much less anxious and tearful. Pt reports she slept well. She reports feeling calmer and ready to return home. She asks about scheduled ativan - we discussed risk of misuse abuse as she continues to work toward recovery of alcohol and now relapsed on heroin. Pt denies si/HI. Per nursing, pt visible, attending groups, no behavioral concerns. Review of Systems Review of Systems Constitutional : No Fever, No Chills ENT/Mouth : No Ear Pain, No Nasal Congestion, No sore throat Eyes: No Eye Pain, No Swelling, No Redness Cardiovascular : No Chest Pain, No SOB Respiratory : No Cough, No Sputum, No Dyspnea Gastrointestinal : No Nausea, No Vomiting, No Diarrhea, No Hematochezia, No Melena Genitourinary : No Dysuria, No Urinary Frequency, No Hematuria Musculoskeletal : No Myalgias Skin : No Skin Lesions, No rash Neuro : No Weakness, No Numbness, No Paresthesias, No Dizziness, No Headache Psych : positive Anxiety, positive Depression, positive SI no HI Heme/Lymph: No Lymphadenopathy Endocrine : No Polyuria, No Polydipsia All other systems reviewed and are negative Mental Status Exam Mental Status Exam Narrative: Appearance: hospital gown, fair hygiene in NAD Behavior: cooperative, somewhat irritable psychomotor: no agitation or retardation noted Speech:clear, normal rate/rhythm/volume, spontaneous Thought process: linear Thought content: no signs of psychosis, feeling hopeless, anxious and depressed Mood: depressed, anxious Affect: anxious mood, restless SI:passive, no plan or intent HI:none VH/AH:none Delusions: none Insight/judgment:fair x 2. Memory/cog: alert, oriented x 3. grossly intact to conversational testing. Diagnostics Vital Signs (24Hr): Vital Signs - 24 hr 03/25/21 20:45 03/25/21 20:53 03/26/21 06:00 Temperature 96.7 F L 97.7 F Pulse Rate 78 78 54 Respiratory Rate 18 Blood Pressure 144/60 H 146/60 H 118/60 Pulse Oximetry 95 98 03/26/21 08:35 Temperature Pulse Rate 54 Respiratory Rate Blood Pressure 158/63 H Pulse Oximetry Body Mass Index 31.3 Labs Results: 03/22/21 10:15 03/22/21 10:15 Medications Medications Current Medications Acetaminophen (Acetaminophen 325 Mg Tablet) 650 mg PO Q6H PRN PRN Reason: Headache/Pain Mild Scale (1-3) Al Hydroxide/Mg Hydroxide (Magnesium Hydrox/Alum Hydrox 30 Ml Oral.Susp) 30 ml PO Q6H PRN PRN Reason: Heartburn/Nausea Last Admin: 03/25/21 15:42 Dose: 30 ml Documented by: Albuterol Sulfate (Albuterol Sulfate 90 Mcg 8 Gm Inhaler) 1 puff INHALE Q4H PRN PRN Reason: bronchospasm Buprenorphine/Naloxone (Buprenorphine/Naloxone 4/1 Mg Film) 1 film SUBLINGUAL DAILY [facility] Last Admin: 03/26/21 08:36 Dose: 1 film Documented by: Clonidine HCl (Clonidine Hcl 0.1 Mg Tablet) 0.1 mg PO BID [facility]; Protocol Last Admin: 03/26/21 08:35 Dose: 0.1 mg Documented by: Docusate Sodium (Docusate Sodium 100 Mg Capsule) 100 mg PO BID [facility] Last Admin: 03/26/21 08:35 Dose: 100 mg Documented by: Fluoxetine HCl (Fluoxetine Hcl 20 Mg Capsule) 60 mg PO DAILY [facility] Last Admin: 03/26/21 08:35 Dose: 60 mg Documented by: Folic Acid (Folic Acid 1 Mg Tablet) 1 mg PO DAILY [facility] Last Admin: 03/26/21 08:35 Dose: 1 mg Documented by: Gabapentin (Gabapentin 300 Mg Capsule) 300 mg PO TID [facility] Last Admin: 03/26/21 15:59 Dose: 300 mg Documented by: Hydrocortisone (Hydrocortisone 2.5 % Rectal Cr 30 Gm Tube) 1 appl [place] BID PRN PRN Reason: rectal discomfort Last Admin: 03/25/21 18:48 Dose: 1 appl Documented by: Hydroxyzine HCl (Hydroxyzine Hcl 25 Mg Tablet) 25 mg PO BEDTIME [facility] Last Admin: 03/25/21 20:54 Dose: 25 mg Documented by: Hydroxyzine HCl (Hydroxyzine Hcl 25 Mg Tablet) 25 mg PO BEDTIME PRN PRN Reason: Anxiety Ibuprofen (Ibuprofen 600 Mg Tablet) 600 mg PO Q8H PRN PRN Reason: Pain, Moderate (Pain Scale 4-6 Last Admin: 03/26/21 16:05 Dose: 600 mg Documented by: Lorazepam (Lorazepam 1 Mg Tablet) 1 mg PO Q4H PRN PRN Reason: Alcohol Withdrawal Last Admin: 03/26/21 15:59 Dose: 1 mg Documented by: Lorazepam (Lorazepam 0.5 Mg Tablet) 0.5 mg PO BID [facility] Last Admin: 03/26/21 08:35 Dose: 0.5 mg Documented by: Magnesium Hydroxide (Milk Of Magnesia 30 Ml Oral.Susp) 30 ml PO DAILY PRN PRN Reason: Constipation Nicotine (Nicotine 21 Mg Patch.Td24) 21 mg TRANSDERMA DAILY [facility] Last Admin: 03/26/21 08:34 Dose: 21 mg Documented by: Nicotine Polacrilex (Nicotine Polacrilex 2 Mg Gum) 2 mg BUCCAL Q2H PRN PRN Reason: Nicotine Cravings Omeprazole (Omeprazole 20 Mg Capsule.Dr) 20 mg PO BID@0630,1630 [facility] Last Admin: 03/26/21 15:59 Dose: 20 mg Documented by: Thiamine HCl (Thiamine Hcl 100 Mg Tablet) 100 mg PO DAILY [facility] Last Admin: 03/26/21 08:35 Dose: 100 mg Documented by: Trazodone HCl (Trazodone Hcl 100 Mg Tablet) 100 mg PO BEDTIME [facility] Last Admin: 03/25/21 20:54 Dose: 100 mg Documented by: Allergies Allergies Allergy/AdvReac Type Severity Reaction Status Date / Time Penicillins [PENICILLINS] Allergy Intermediate RASH Verified 02/27/21 09:55 (CHILDHOOD ALLERGY) Assessment & Plan Assessment & Plan (1) PTSD (post-traumatic stress disorder): Status: Acute Code(s): F43.10 - Post-traumatic stress disorder, unspecified (2) MDD (major depressive disorder): Qualifiers: Major depression recurrence: recurrent Active/Remission status: currently active Major depression episode severity: moderate Qualified Code(s): F33.1 - Major depressive disorder, recurrent, moderate Status: Acute Code(s): F32.9 - Major depressive disorder, single episode, unspecified (3) Alcohol use disorder, severe, dependence: Status: Acute Code(s): F10.20 - Alcohol dependence, uncomplicated (4) Opioid abuse: Status: Acute Code(s): F11.10 - Opioid abuse, uncomplicated Assessment and Plan: Mrs. Thomas is a 60 year-old woman with hx of opioid use disorder, alcohol use disorder, MDD who self presented [place] [facility] after intentional OD on heroin as suicide attempt. 1. q15, cv 2. Continue Prozac to 60 3. ETOH detox protocol. 4. Collateral from H Refer to PHP. I spent minutes with the patient and/or on the patient floor today, greater than?50% of which was spent counseling/coordinating care. Reason for contiued inpatient stay Substantial Risk for: stable for discharge
[2021-03-26 18:00] VITALS: BP 112/64; PULSE 76; TEMP 36.4; O2SAT 95
[2021-03-26 20:21] VITALS: BP 112/64; PULSE 76
[2021-03-26] MEDS: hydrOXYzine HCL 25 MG TABLET PO (20:25)
[2021-03-26] MEDS: traZODone HCL 100 MG TABLET PO (20:25)
[2021-03-27] MEDS: hydrOXYzine HCL 25 MG TABLET PO (00:15)
[2021-03-27] MEDS: Hydrocortisone 2.5 % Rectal Cr 30 GM TUBE 1 APPL PR (00:15)
[2021-03-27 06:00] VITALS: BP 111/62; PULSE 60; RESP 18; TEMP 36.7; O2SAT 99
[2021-03-27] MEDS: Omeprazole 20 MG CAPSULE.DR PO (06:23)
[2021-03-27] MEDS: Nicotine 21 MG PATCH.TD24 TRANSDERMA (09:05)
[2021-03-27 09:06] VITALS: BP 128/59; PULSE 58
[2021-03-27] MEDS: LORazepam 0.5 MG TABLET PO (09:06)
[2021-03-27] MEDS: Docusate Sodium 100 MG CAPSULE PO (09:06)
[2021-03-27] MEDS: Folic Acid 1 MG TABLET PO (09:06)
[2021-03-27] MEDS: FLUoxetine HCl 20 MG CAPSULE 60 MG PO (09:06)
[2021-03-27] MEDS: Thiamine HCL 100 MG TABLET PO (09:06)
[2021-03-27] MEDS: Gabapentin 300 MG CAPSULE PO (09:06)
[2021-03-27] MEDS: cloNIDine HCL 0.1 MG TABLET PO (09:06)
[2021-03-27] MEDS: Buprenorphine/Naloxone 4/1 mg FILM 1 FILM SUBLINGUAL (09:07)
--- NOTE | 2021-03-27 09:59 | P.DS_ITS ---
DS: Providers Provider Date of Service: 03/27/21 Date of admission: 03/22/21 16:55 Primary care physician: Amari Mckeon PA-C DS: Diagnosis Discharge Diagnosis (1) PTSD (post-traumatic stress disorder): Status: Acute (2) MDD (major depressive disorder): Status: Acute (3) Alcohol use disorder, severe, dependence: Status: Acute (4) Opioid abuse: Status: Acute DS: Medications Discharge Medications Home Medications: Home Medications Medication Instructions Recorded Confirmed buprenorphine 4 mg-naloxone 1 mg 1 strip SUBLINGUAL DAILY 03/22/21 03/22/21 sublingual film (Suboxone) Previous Rx's Medication Instructions Recorded albuterol sulfate 90 mcg/actuation 1 puff PO Q4H PRN #8.5 cap 02/22/21 aerosol inhaler (ProAir HFA) omeprazole 20 mg capsule,delayed 20 mg PO BID #60 cap 03/02/21 release lorazepam 1 mg tablet 1 mg PO BID PRN 15 Days #30 tab 03/18/21 clonidine HCl 0.1 mg tablet 0.1 mg PO BID #30 tab 03/27/21 docusate sodium 100 mg capsule 100 mg PO BID #60 cap 03/27/21 fluoxetine 20 mg capsule 60 mg PO DAILY #90 cap 03/27/21 gabapentin 300 mg capsule 300 mg PO TID #90 cap 03/27/21 hydrocortisone 2.5 % topical cream 1 appl [place] BID PRN #30 g 03/27/21 with perineal applicator (Proctozone-HC) nicotine 21 mg/24 hr daily 21 mg TRANSDERMAL DAILY #30 ea 03/27/21 transdermal patch trazodone 100 mg tablet 100 mg PO BEDTIME #30 tab 03/27/21 Mental Status Exam Mental Status Exam Narrative: Appearance: casually groomed, fair hygiene in NAD Behavior: cooperative psychomotor: no agitation or retardation noted Speech:clear, normal rate/rhythm/volume, spontaneous Thought process: linear Thought content: no signs of psychosis, increasingly more future oriented, looking forward to see family Mood: much better Affect:congruent SI:none HI:none VH/AH:none Delusions: none Insight/judgment:fair x 2. Memory/cog: alert, oriented x 3. grossly intact to conversational testing. Data Data Completed and Pending Completed studies during hospitalization [Text1]: 03/22/21 03/22/21 03/22/21 09:39 10:03 10:15 WBC 7.7 RBC 4.33 Hgb 12.9 Hct 38.2 MCV 88.2 MCH 29.8 MCHC 33.8 RDW 15.1 Plt Count 173 MPV 9.8 Immature Gran % (Auto) 0.4 Neut % (Auto) 69.1 Lymph % (Auto) 23.1 Sebastian % (Auto) 4.8 Eos % (Auto) 2.3 Baso % (Auto) 0.3 Lymph # (Auto) 1.8 Sebastian # (Auto) 0.4 Eos # (Auto) 0.2 Baso # (Auto) 0.0 Abs Immat Gran (auto) 0.03 Absolute Neuts (auto) 5.30 Absolute Nucleated RBC 0.000 Nucleated RBC % (auto) 0.0 Sodium Potassium Chloride Carbon Dioxide Anion Gap BUN Creatinine Estim Creat Clear Calc Estimated GFR Random Glucose Calcium Total Bilirubin Direct Bilirubin AST ALT Alkaline Phosphatase Total Protein Albumin Urine Opiates Screen Not Detected Urine Fentanyl Screen POSITIVE H Ur Barbiturates Screen Not Detected Ur Phencyclidine Scrn Not Detected Ur Amphetamines Screen Not Detected U Benzodiazepines Scrn Not Detected Urine Cocaine Screen Not Detected U Marijuana (THC) Screen POSITIVE H Ethyl Alcohol COVID-19 ([facility]) Negative COVID-19 Clin Com See Note 03/22/21 03/22/21 10:15 10:15 WBC RBC Hgb Hct MCV MCH MCHC RDW Plt Count MPV Immature Gran % (Auto) Neut % (Auto) Lymph % (Auto) Sebastian % (Auto) Eos % (Auto) Baso % (Auto) Lymph # (Auto) Sebastian # (Auto) Eos # (Auto) Baso # (Auto) Abs Immat Gran (auto) Absolute Neuts (auto) Absolute Nucleated RBC Nucleated RBC % (auto) Sodium 138 Potassium 3.3 Chloride 102 Carbon Dioxide 26 Anion Gap 13 BUN 16 Creatinine 0.65 Estim Creat Clear Calc 96.5 Estimated GFR > 60 Random Glucose 102 Calcium 9.2 Total Bilirubin 0.6 Direct Bilirubin 0.3 AST 28 ALT 32 H Alkaline Phosphatase 113 Total Protein 6.8 Albumin 4.3 Urine Opiates Screen Urine Fentanyl Screen Ur Barbiturates Screen Ur Phencyclidine Scrn Ur Amphetamines Screen U Benzodiazepines Scrn Urine Cocaine Screen U Marijuana (THC) Screen Ethyl Alcohol < 10 COVID-19 ([facility]) COVID-19 Clin Com DS: Summary Hospital Course Hospital Course: HPI: 60 MWF presented to ED after recent relapse on Heroin / fentanyl and possible intended OD. (describes it as impulsive). Initially identified no ppt but later : only brothers anniversary on Feb 21. He of CA esophagus. Pt also drinking 28 units of ETOH / week. Identifies it as a problem. Relapsed after 15 years clean off heroin. Hx IVDA. Denies Cocaine. Recent increase in Prozac from 40 to 80 mg caused anxiety. No psychosis/ bipolarity Hx unspecified PTSD which she did not elaborate Past Psychiatric History: No psych providers. Denies attempts/hospitalization Medical Evaluation Reviewed: Yes HOSPITAL COURSE On the unit, Ms. Thomas was admitted on CV and placed on 15 minutes checks for safety. Pt initially presented as very restless, tearful, depressed mood. She adamantly denied suicidal ideation and regret OD as intent to end her life. Pt does report drinking daily for past 6 months. She does admit her drinking is problematic and affecting her ability to function. She does worried that she had not used opioid for more than 14 years and recently was triggered during work training about past trauma history. On the unit, pt was started on CIWA protocol for withdrawal without any medical complications. Pt denied hx of alcohol withdrawal seizures. After discussing risks, benefits and alternative treatment options, she reported she had tried several antidepressants in the past. She reports she found Prozac to be most effective. She does report that increase of prozac from 40mg to 80mg po daily by her PCP 3 weeks ago did agitated her even more. She was continued on prozac 60mg po daily, which she tolerated well without signs of agitation. She was continued on clonidine for anxiety. She was continued on suboxone 4mg SL daily. Her affect gradually presented as much less anxious. She denied suicidal or homicidal ideation throughout this admission. She reported improved sleep and appetite. She was increasingly more visible in the unit and social with select peers. Collateral information gathered from who denied safety concerns at time of discharge and agreed that pt appeared in much improved condition. Pt was given Narcan prior to discharge given recent use of opioid. Time spent discussing smoking cessation with patient: 3 to 10 minutes Status at Discharge Cognitive/behavioral status at discharge: Pt with brighter affect, much calmer. She denied SI/HI. She reports less depressed mood. She is increasingly more future oriented. She identifies family as protective factors and looking forward to see them as well as continue OP psych treatment. No signs of aggression towards self or others. Functional status at discharge: independent ambulation Overall status at discharge: patient is progressing back to baseline Time Spent with Patient Time attestation: Total time spent providing and/or coordinating discharge services: Time spent: Greater than 30 minutes Discharge Plan Discharge Patient Disposition: Home, Self-Care Discharge Diagnosis: MDD, recurrent, moderate Opioid use disorder Alcohol Use Disorder Referrals: Jorge Alexander [Other] - 03/31/21 10:20 am (Appointment with therapist following [place] [facility] to refer for psychiatry services at agency. [facility] will coordinate with primary care provider to prescribe until patient is seen by psychiatric medication provider.) Amari Mckeon PA-C [Primary Care Provider] - 04/10/21 10:00 am (over the phone) Discharge Medications: New clonidine HCl 0.1 mg Tablet 0.1 mg PO BID Qty: 30 RF: 0 trazodone 100 mg Tablet 100 mg PO BEDTIME Qty: 30 RF: 0 nicotine 21 mg/24 hr Patch 24 Hour 21 mg transdermal DAILY Qty: 30 RF: 0 docusate sodium 100 mg Capsule 100 mg PO BID Qty: 60 RF: 0 gabapentin 300 mg Capsule 300 mg PO TID Qty: 90 RF: 0 fluoxetine 20 mg Capsule 60 mg PO DAILY Qty: 90 RF: 0 hydrocortisone [Proctozone-HC] 2.5 % Cream With Perineal Applicator 1 appl [place] BID PRN (Reason: rectal discomfort) Qty: 30 RF: 0 Continued albuterol sulfate [ProAir HFA] 90 mcg/actuation HFA aerosol inhaler 1 puff PO Q4H PRN (Reason: bronchospasm) Qty: 8.5 RF: 0 omeprazole 20 mg capsule,delayed release(DR/EC) 20 mg PO BID Qty: 60 RF: 4 buprenorphine-naloxone [Suboxone] 4-1 mg film 1 strip sublingual DAILY RF: 0 lorazepam 1 mg tablet 1 mg PO BID PRN (Reason: anxiety) 15 Days Qty: 30 RF: 1 Discontinued gabapentin 300 mg capsule 300 mg PO TID 30 Days Qty: 90 RF: 4 hydroxyzine HCl 25 mg tablet 25 mg PO BEDTIME Qty: 30 RF: 3 fluoxetine 40 mg capsule 80 mg PO DAILY RF: 0 trazodone 100 mg tablet 100 mg PO BEDTIME 30 Days Qty: 30 RF: 1 Discharge Orders: Discharge Order (Routine); Ordered 03/27/21 Ordered By: Janet Gaona Diet: regular diet Activity on Discharge: As tolerated Stand Alone Forms: Patient Portal Discharge page Care Plan Goals: 1. Maintain mood 2. No SI/HI 3. Harm reduction- take home narcan 4. Continue recovery treatment Health Concerns: 1. Follow up with PCP for routine care Plan of Treatment: 1. Take medications as prescribed 2. Follow up with referrals 3. Go to nearest ED or call 911 in event of emergency. Assessment: Pt brighter affect. No SI/HI. Future oriented. No signs of aggression towards self or others. Continue recovery treatment- AA meeting.
[2021-03-27] MEDS: Ibuprofen 600 MG TABLET PO (13:20)
[2021-03-27] MEDS: LORazepam 1 MG TABLET PO (13:20)
== END 2021-03-27 13:54 | disposition home or self-care (01) | DRG 751 ==
LOC: HO.ED 08:24 → HO.PM5 17:13
PROVIDERS: Admitting Provider Psychiatry & Neurology Psychiatry; Emergency Provider Emergency Medicine; PCP Physician Assistant; Visit Provider Psychiatry & Neurology Psychiatry
DX: F33.1 Major depressive disorder, recurrent, moderate (principal); R45.851 Suicidal ideations; F43.10 Post-traumatic stress disorder, unspecified; K21.9 Gastro-esophageal reflux disease without esophagitis; F10.20 Alcohol dependence, uncomplicated; F11.10 Opioid abuse, uncomplicated; Z88.0 Allergy status to penicillin; Z79.899 Other long term (current) drug therapy
CPT/HCPCS: 36415; 80048; 80076; 80307; 82077; 85025; 87635; 99284; 99285

== ENCOUNTER 2021-04-22 13:26 | Outpatient (REF) | payer OTHER, SELFPAY ==
[2021-04-22 14:43] LABS: Alanine Aminotransferase 21 U/L (0-31); Albumin Level 4.2 g/dL (3.5-5.0); Alkaline Phosphatase 96 U/L (39-117); Anion Gap 13 (12-20); Aspartate Amino Transferase 20 U/L (5-31); Bilirubin Direct 0.2 mg/dL (0.0-0.5); Bilirubin Total 0.4 mg/dL (0.0-1.0); Blood Urea Nitrogen 13 mg/dL (9-16); Calcium 9.5 mg/dL (8.4-10.2); Carbon Dioxide 28 mmol/L (22-29); Chloride 102 mmol/L (96-108); Estimated Glomerular Filt Rate > 60; Glucose Random 91 mg/dL (60-115); Potassium 4.5 mmol/L (3.3-5.1); Sodium 138 mmol/L (135-145); Total Protein 6.9 g/dL (6.5-8.0)
[2021-04-22 15:06] LABS: TSH reflex Free T4 2.08 uIU/mL (0.32-4.0)
== END 2021-04-22 13:27 | disposition home or self-care (01) ==
LOC: HO.LAB 13:26
PROVIDERS: PCP Physician Assistant; Visit Provider Physician Assistant
DX: Z13.29 Encounter for screening for other suspected endocrine disorder (principal); F10.20 Alcohol dependence, uncomplicated
CPT/HCPCS: 36415; 80048; 80076; 84443

== ENCOUNTER 2021-09-16 11:52 | Outpatient (REF) | payer OTHER, SELFPAY ==
--- NOTE | ~2021-09-16 | XR_ITS ---
EXAMINATION: XR CHEST CLINICAL INFORMATION: Cough. COMPARISON: Chest 10/06/2019. TECHNIQUE: Frontal view of the chest was obtained. FINDINGS: The lungs are well expanded with increased bilateral markings with infrahilar bronchial wall thickening. The heart size and progress clarities normal. No gross bony abnormality seen. XR/XR chest 1V IMPRESSION: Bilateral increased parahilar markings with infrahilar bronchial wall thickening suggestive of chronic small airway disease. There is no consolidation. The markings have increased since the previous study 10/06/2019.
== END 2021-09-16 11:53 | disposition home or self-care (01) ==
LOC: HO.HMGCX 11:52
PROVIDERS: PCP Internal Medicine; Visit Provider Nurse Practitioner Acute Care
DX: R05.9 Cough, unspecified (principal); R68.89 Other general symptoms and signs; M54.30 Sciatica, unspecified side; Z20.822 Contact with and (suspected) exposure to COVID-19
CPT/HCPCS: 0241U; 71045

== ENCOUNTER 2021-09-16 11:56 | Outpatient (REF) | payer OTHER, SELFPAY ==
[2021-09-16 15:21] LABS: Influenza A PCR NEGATIVE (Negative); Influenza B PCR NEGATIVE (Negative); Resp Syncy Virus RNA Qual PCR NEGATIVE (Negative); SARS COV2 PCR INHOUSE NEGATIVE (Negative)
== END 2021-09-16 11:57 | disposition home or self-care (01) ==
LOC: HO.LAB 11:56
PROVIDERS: Visit Provider Nurse Practitioner Acute Care
DX: Z13.89 Encounter for screening for other disorder (principal)
CPT/HCPCS: 0241U

== ENCOUNTER → 2021-10-09 10:11 | Outpatient (BNVA) | payer OTHER, SELFPAY | PROVIDERS: PCP Internal Medicine; Visit Provider Internal Medicine Pulmonary Disease | DX: J98.4 Other disorders of lung (principal); Z91.09 Other allergy status, other than to drugs and biological substances | CPT/HCPCS: 99202 ==

== ENCOUNTER 2021-11-03 11:49 | Outpatient (REF) | payer OTHER, SELFPAY ==
[2021-11-03 12:17] LABS: MANUAL DIFF FLAG NO
[2021-11-03 13:22] LABS: Hematocrit 38.6 % (37.0-47.0); Hemoglobin 12.8 g/dl (12.0-16.0); Mean Corpuscular HGB Conc 33.2 g/dl (31.0-35.0); Mean Corpuscular Hemoglobin 29.8 pg (27.0-33.0); Mean Corpuscular Volume 89.8 fL (80.0-98.0); Platelet Count 211 X10*3/uL (160-400); Red Cell Distribution Width 16.2 % (11.0-16.0)
[2021-11-03 13:23] LABS: Basophils Percent Auto 0.2 % (0-2); Eosinophils Absolute Auto 0.2 X10*3/uL (0.0-0.4); Eosinophils Percent Auto 2.3 % (0-4); Hematocrit 38.3 % (37.0-47.0); Hemoglobin 12.5 g/dl (12.0-16.0); Imm Gran Abs Auto 0.03 X10*3/uL (0.00-0.03); Imm Gran Pct Auto 0.3 % (0.0-0.4); Lymphocytes Absolute Auto 2.9 X10*3/uL (1.2-4.9); Lymphocytes Percent Auto 31.6 % (20-40); Mean Corpuscular HGB Conc 32.6 g/dl (31.0-35.0); Mean Corpuscular Hemoglobin 29.3 pg (27.0-33.0); Mean Corpuscular Volume 89.7 fL (80.0-98.0); Monocytes Absolute Auto 0.5 X10*3/uL (0.1-1.2); Monocytes Percent Auto 5.3 % (2-11); Neutrophils Absolute Auto 5.5 x10*3/uL (2.0-8.3); Neutrophils Percent Auto 60.3 % (45-73); Platelet Count 201 X10*3/uL (160-400); Red Blood Count 4.27 X10*6/uL (4.20-5.50); Red Cell Distribution Width 16.1 % (11.0-16.0); White Blood Count 9.2 X10*3/uL (4.8-10.8)
[2021-11-03 13:45] LABS: Ethanol < 10 mg/dL
[2021-11-03 13:48] LABS: Alanine Aminotransferase 19 U/L (0-31); Albumin Level 4.4 g/dL (3.5-5.0); Alkaline Phosphatase 104 U/L (39-117); Anion Gap 14 (12-20); Aspartate Amino Transferase 19 U/L (5-31); Bilirubin Total 0.7 mg/dL (0.0-1.0); Blood Urea Nitrogen 14 mg/dL (9-16); Calcium 9.1 mg/dL (8.4-10.2); Carbon Dioxide 26 mmol/L (22-29); Chloride 103 mmol/L (96-108); Cholesterol 219 mg/dL; Estimated Glomerular Filt Rate > 60; Glucose Fasting 90 mg/dL (60-99); HDL Cholesterol 61 mg/dL; LDL Cholesterol Calculated 137 mg/dl; Potassium 4.2 mmol/L (3.3-5.1); Sodium 139 mmol/L (135-145); Total Protein 7.3 g/dL (6.5-8.0); Triglycerides 108 mg/dL
[2021-11-03 13:48] LABS: Creatinine Urine 120.93 mg/dL; Microalbum/Creatinine Ratio Ur 7.4 ug/mg cr
[2021-11-03 14:14] LABS: TSH reflex Free T4 1.78 uIU/mL (0.32-4.0)
== END 2021-11-03 11:50 | disposition home or self-care (01) ==
LOC: HO.LAB 11:49
PROVIDERS: Absent Provider Physician Assistant; PCP Physician Assistant; Visit Provider Internal Medicine Pulmonary Disease
DX: Z13.29 Encounter for screening for other suspected endocrine disorder (principal); J98.4 Other disorders of lung; I10 Essential (primary) hypertension; F11.20 Opioid dependence, uncomplicated
CPT/HCPCS: 36415; 80053; 80061; 82043; 82077; 82785; 84443; 85025; 85027; 86003

== ENCOUNTER 2021-11-06 12:44 | Outpatient (REF) | payer OTHER, SELFPAY ==
--- NOTE | 2021-11-06 14:17 | PFT_ITS ---
INDICATION: Dyspnea. SPIROMETRY: FEV1 to FVC of 76% with an FEV1 of 2.19 L, which is 87% predicted, and FVC of 2.89 L, which is 88% predicted. No significant response to bronchodilators noted. Maximum voluntary ventilation. LUNG VOLUMES: Total lung capacity 104% predicted, with a residual volume 117% predicted, and an expiratory reserve volume of 24% predicted. DIFFUSION CAPACITY: DLCO of 64% predicted. To note, it does not correct to normal when correcting for the alveolar volume. COMPARISONS: None. INTERPRETATION: No obstructive nor restrictive ventilatory defects identified. No significant response to bronchodilators noted. Slight decrease in maximum voluntary ventilation secondary to likely deconditioning. Lung volumes with a decrease in the expiratory reserve volume secondary to an elevated BMI. Although, the patient does have an isolated mild diffusion impairment. This is not corrected for the alveolar volume. It should be corrected for hemoglobin. Clinical correlation warranted. MD RIVERA Matthew/MODL / [id number]
== END 2021-11-06 12:45 | disposition home or self-care (01) ==
LOC: HO.RESP 12:44
PROVIDERS: PCP Physician Assistant; Visit Provider Internal Medicine Pulmonary Disease
DX: R06.00 Dyspnea, unspecified (principal); J98.4 Other disorders of lung
CPT/HCPCS: 94060; 94727; 94729

== ENCOUNTER → 2021-11-20 10:39 | Outpatient (BNVA) | payer OTHER, SELFPAY | PROVIDERS: PCP Physician Assistant; Visit Provider Internal Medicine Pulmonary Disease | DX: J43.9 Emphysema, unspecified (principal); Z79.899 Other long term (current) drug therapy | CPT/HCPCS: 99212 ==

== ENCOUNTER 2021-12-08 16:48 | Emergency (ER) | payer OTHER, SELFPAY ==
[2021-12-08 16:53] VITALS: BP 137/89; PULSE 100; RESP 18; TEMP 36.7; O2SAT 97; BMI 32.5
--- NOTE | 2021-12-08 16:56 | PC.NURSE ---
family member- Ministerio- requesting call if he needs to leave
[2021-12-08 18:08] LABS: MANUAL DIFF FLAG NO
[2021-12-08 18:25] LABS: Ethanol 108 mg/dL
[2021-12-08 18:26] LABS: Anion Gap 13 (12-20); Blood Urea Nitrogen 11 mg/dL (9-16); Carbon Dioxide 27 mmol/L (22-29); Chloride 108 mmol/L (96-108); Creatinine Clr Calc Pharmacy 93.8; Estimated Glomerular Filt Rate > 60; Glucose Random 104 mg/dL (60-115); Potassium 3.8 mmol/L (3.3-5.1); Sodium 144 mmol/L (135-145)
[2021-12-08 18:36] LABS: Basophils Percent Auto 0.4 % (0-2); Eosinophils Absolute Auto 0.2 X10*3/uL (0.0-0.4); Eosinophils Percent Auto 2.1 % (0-4); Hematocrit 39.5 % (37.0-47.0); Hemoglobin 13.4 g/dl (12.0-16.0); Imm Gran Abs Auto 0.02 X10*3/uL (0.00-0.03); Imm Gran Pct Auto 0.3 % (0.0-0.4); Lymphocytes Absolute Auto 3.4 X10*3/uL (1.2-4.9); Lymphocytes Percent Auto 42.4 % (20-40); Mean Corpuscular HGB Conc 33.9 g/dl (31.0-35.0); Mean Corpuscular Hemoglobin 30.2 pg (27.0-33.0); Mean Platelet Volume 10.1 fL (9.4-12.3); Monocytes Absolute Auto 0.3 X10*3/uL (0.1-1.2); Monocytes Percent Auto 4.3 % (2-11); Neutrophils Percent Auto 50.5 % (45-73); Platelet Count 207 X10*3/uL (160-400); Red Blood Count 4.44 X10*6/uL (4.20-5.50); Red Cell Distribution Width 15.8 % (11.0-16.0)
[2021-12-08 18:47] LABS: COVID-19 Test Negative (Negative); IDNOW Serial# 16C4AD1C
[2021-12-09] VITALS: BP 159/78; PULSE 73; RESP 16; TEMP 36.6; O2SAT 98
--- NOTE | 2021-12-09 00:04 | ED.PSYCH ---
HPI - Psych General Chief Complaint: Psychiatric Symptoms Stated Complaint: Crisis Time Seen by Provider: 12/08/21 20:19 Source: patient Mode of arrival: ambulatory Limitations: no limitations History of Present Illness HPI Narrative: Patient brought by for increased depression alcohol use and suicidal feeling for last few days patient alcoholic but been drinking heavy for last few months increased depression but lately feeling to hurt herself by cutting herself, history of same in the past overdose on heroin Related Data Home Medications Medication Instructions Recorded Confirmed buprenorphine 4 mg-naloxone 1 mg 1 strip sublingual DAILY 03/22/21 07/23/21 sublingual film (Suboxone) Previous Rx's Medication Instructions Recorded trazodone 100 mg tablet 100 mg PO BEDTIME #30 tabs 03/27/21 blood pressure test kit-medium #1 ea 07/23/21 albuterol sulfate 90 mcg/actuation 1 puff PO Q4H PRN bronchospasm 08/31/21 aerosol inhaler (ProAir HFA) #8.5 caps nicotine (polacrilex) 4 mg buccal 4 mg buccal Q2-4H PRN nicotine 10/09/21 lozenge cravings 30 days #216 ea hydroxyzine HCl 25 mg tablet 25 mg PO BEDTIME 30 days #30 tabs 10/29/21 omeprazole 40 mg capsule,delayed 40 mg PO DAILY 90 days #90 caps 10/31/21 release umeclidinium 62.5 mcg-vilanterol 1 inh inhalation DAILY 30 days #1 11/06/21 25 mcg/actuation powdr for ea inhalation (Anoro Ellipta) azithromycin 250 mg tablet See Rx Instructions PO .COMPLEX 5 11/20/21 days #6 tabs gabapentin 300 mg capsule 300 mg PO TID #90 caps 11/26/21 clonidine HCl 0.1 mg tablet 0.1 mg PO BID 30 days #60 tabs 11/27/21 fluoxetine 20 mg capsule 60 mg PO DAILY #90 caps 12/02/21 lorazepam 1 mg tablet 1 mg PO BID PRN anxiety 15 days 12/02/21 #30 tabs Allergies Allergy/AdvReac Type Severity Reaction Status Date / Time Penicillins [PENICILLINS] Allergy Intermediate RASH Verified 11/20/21 10:45 (CHILDHOOD ALLERGY) Review of Systems Review of Systems: Yes all other systems are reviewed and are negative PMFSH Past Medical History Medical History Acute anxiety Depression Ganglion cyst GERD (gastroesophageal reflux disease) Insomnia Obese Otitis externa RUQ abdominal pain Tubular adenoma of colon Surgical History History of esophagogastroduodenoscopy (EGD) Hx of colonoscopy Previous back surgery Family History Family History Father Alzheimer disease Mother Stroke Brother Esophageal cancer Other Mental problem Substance abuse Social History Social History Household Members: Friend(s) Household Members Other:: 1 Housing: Apartment Do you presently have visiting nurse or other home services: No Alcohol intake: former Patient Tobacco Use Status: Current everyday Tobacco user Tobacco use type: Cigarette Cigarette Packs Per Day: 1 Cigarettes Per Day: 20.0 Years Smoked: 40 e-Cigarette/Vaping Use: Currently Using Second Hand Smoke Exposure: Yes Substance Use Type: Heroin Advance Directives: No service: No Current occupational status: employed 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 Oriented X3. No acute distress. etoh + Eyes: PERRLA, No Nystagmus ENT: Pharynx normal. Oral Mucosa moist Neck: Normal inspection. Neck supple. CVS: Normal heart rate and rhythm. Pulses normal. Respiratory: No respiratory distress. Equal air entry bilateral, no wheezing/rales/rhonchi Abdomen: Soft and nontender. Bowel sounds are present, no mass palpable, no CVA tenderness Skin: Skin warm and dry. Normal skin color. Normal skin turgor. Extremities: No lower extremity edema. No calf tenderness psych; look depressed no current suicidal thought no hallucinations or delusions Neuro: Oriented X 3. No motor deficit. No sensory deficit.No cerebellar signs , cranial nerves II-XII intact MDM - Psych MDM Narrative Medical decision making narrative: Patient with depression alcohol use with suicidal feelings will get crisis for evaluation Lab Data Attestation: I reviewed the patient's lab results. Result diagrams: 12/08/21 18:03 12/08/21 18:03 Labs: Lab Results 12/08/21 12/08/21 12/08/21 Range/Units 18:03 18:03 18:03 WBC 8.0 (4.8-10.8) X10*3/uL RBC 4.44 (4.20-5.50) X10*6/uL Hgb 13.4 (12.0-16.0) g/dl Hct 39.5 (37.0-47.0) % MCV 89.0 (80.0-98.0) fL MCH 30.2 (27.0-33.0) pg MCHC 33.9 (31.0-35.0) g/dl RDW 15.8 (11.0-16.0) % Plt Count 207 (160-400) X10*3/uL MPV 10.1 (9.4-12.3) fL Immature Gran % (Auto) 0.3 (0.0-0.4) % Neut % (Auto) 50.5 (45-73) % Lymph % (Auto) 42.4 H (20-40) % [place] % (Auto) 4.3 (2-11) % Eos % (Auto) 2.1 (0-4) % Baso % (Auto) 0.4 (0-2) % Lymph # (Auto) 3.4 (1.2-4.9) X10*3/uL [place] # (Auto) 0.3 (0.1-1.2) X10*3/uL Eos # (Auto) 0.2 (0.0-0.4) X10*3/uL Baso # (Auto) 0.0 (0.0-0.2) X10*3/uL Abs Immat Gran (auto) 0.02 (0.00-0.03) X10*3/uL Absolute Neuts (auto) 4.0 (2.0-8.3) x10*3/uL Absolute Nucleated RBC 0.000 (0.0-0.012) X10*3/uL Nucleated RBC % (auto) 0.0 (0.0-0.2) /100WBC Sodium 144 (135-145) mmol/L Potassium 3.8 (3.3-5.1) mmol/L Chloride 108 (96-108) mmol/L Carbon Dioxide 27 (22-29) mmol/L Anion Gap 13 (12-20) BUN 11 (9-16) mg/dL Creatinine 0.66 (0.5-1.4) mg/dL Estim Creat Clear Calc 93.8 Estimated GFR > 60 Random Glucose 104 (60-115) mg/dL Calcium 9.0 (8.4-10.2) mg/dL Urine Color Urine Appearance Urine pH (5.0-8.0) Ur Specific [place] (1.005-1.025) Urine Protein (NEG-TRACE) MG/DL Urine Glucose (UA) (NEG) MG/DL Urine Ketones (NEG) MG/DL Urine Blood (NEG) Urine Nitrite (NEG) Ur Leukocyte Esterase (NEG) Urine Opiates Screen (Not Detect) Urine Fentanyl Screen (Not Detect) Ur Barbiturates Screen (Not Detect) Ur Phencyclidine Scrn (Not Detect) Ur Amphetamines Screen (Not Detect) U Benzodiazepines Scrn (Not Detect) Urine Cocaine Screen (Not Detect) U Marijuana (THC) Screen (Not Detect) Ethyl Alcohol mg/dL COVID-19 (NIURKA) Negative (Negative) COVID-19 Clin Com See Note 12/08/21 12/09/21 12/09/21 Range/Units 18:03 00:14 00:14 WBC (4.8-10.8) X10*3/uL RBC (4.20-5.50) X10*6/uL Hgb (12.0-16.0) g/dl Hct (37.0-47.0) % MCV (80.0-98.0) fL MCH (27.0-33.0) pg MCHC (31.0-35.0) g/dl RDW (11.0-16.0) % Plt Count (160-400) X10*3/uL MPV (9.4-12.3) fL Immature Gran % (Auto) (0.0-0.4) % Neut % (Auto) (45-73) % Lymph % (Auto) (20-40) % [place] % (Auto) (2-11) % Eos % (Auto) (0-4) % Baso % (Auto) (0-2) % Lymph # (Auto) (1.2-4.9) X10*3/uL [place] # (Auto) (0.1-1.2) X10*3/uL Eos # (Auto) (0.0-0.4) X10*3/uL Baso # (Auto) (0.0-0.2) X10*3/uL Abs Immat Gran (auto) (0.00-0.03) X10*3/uL Absolute Neuts (auto) (2.0-8.3) x10*3/uL Absolute Nucleated RBC (0.0-0.012) X10*3/uL Nucleated RBC % (auto) (0.0-0.2) /100WBC Sodium (135-145) mmol/L Potassium (3.3-5.1) mmol/L Chloride (96-108) mmol/L Carbon Dioxide (22-29) mmol/L Anion Gap (12-20) BUN (9-16) mg/dL Creatinine (0.5-1.4) mg/dL Estim Creat Clear Calc Estimated GFR Random Glucose (60-115) mg/dL Calcium (8.4-10.2) mg/dL Urine Color YELLOW Urine Appearance CLEAR Urine pH 6.0 (5.0-8.0) Ur Specific [place] 1.020 (1.005-1.025) Urine Protein NEG (NEG-TRACE) MG/DL Urine Glucose (UA) NEG (NEG) MG/DL Urine Ketones NEG (NEG) MG/DL Urine Blood NEG (NEG) Urine Nitrite NEG (NEG) Ur Leukocyte Esterase NEG (NEG) Urine Opiates Screen Not Detected (Not Detect) Urine Fentanyl Screen POSITIVE H (Not Detect) Ur Barbiturates Screen Not Detected (Not Detect) Ur Phencyclidine Scrn Not Detected (Not Detect) Ur Amphetamines Screen Not Detected (Not Detect) U Benzodiazepines Scrn Not Detected (Not Detect) Urine Cocaine Screen Not Detected (Not Detect) U Marijuana (THC) Screen POSITIVE H (Not Detect) Ethyl Alcohol 108 mg/dL COVID-19 (NIURKA) (Negative) COVID-19 Clin Com Discharge Plan Discharge Clinical Impression: Alcohol use disorder, severe, dependence, Depression with suicidal ideation Patient Disposition: Still a Patient Prescriptions: No Action albuterol sulfate [ProAir HFA] 90 mcg/actuation HFA aerosol inhaler 1 puff PO Q4H PRN (Reason: bronchospasm) Qty: 8.5 3RF hydroxyzine HCl 25 mg tablet 25 mg PO BEDTIME 30 Days Qty: 30 3RF omeprazole 40 mg capsule,delayed release(DR/EC) 40 mg PO DAILY 90 Days Qty: 90 1RF Anoro Ellipta 62.5-25 mcg/actuation blister with device 1 inh inhalation DAILY 30 Days Qty: 1 6RF azithromycin 250 mg tablet See Rx Instructions PO .COMPLEX 5 Days Qty: 6 0RF Rx Instructions: For 250 mg dose pack: take 500 mg today (day 1), then 250 mg for 4 days (days 2-5) PO gabapentin 300 mg capsule 300 mg PO TID Qty: 90 0RF clonidine HCl 0.1 mg tablet 0.1 mg PO BID 30 Days Qty: 60 3RF Protocol: Hold for SBP< HOLD for SBP < : 90 lorazepam 1 mg tablet 1 mg PO BID PRN (Reason: anxiety) 15 Days Qty: 30 1RF fluoxetine 20 mg capsule 60 mg PO DAILY Qty: 90 3RF buprenorphine-naloxone [Suboxone] 4-1 mg film 1 strip sublingual DAILY trazodone 100 mg Tablet 100 mg PO BEDTIME Qty: 30 0RF (DME) blood pressure test kit-medium Kit See Rx Instructions .Route Qty: 1 0RF Rx Instructions: As directed nicotine (polacrilex) 4 mg lozenge 4 mg buccal Q2-4H PRN (Reason: nicotine cravings) 30 Days Qty: 216 3RF
--- NOTE | 2021-12-09 00:07 | PC.NURSE ---
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
--- NOTE | 2021-12-09 00:16 | MHC.CARE ---
[place] sent to [facility]
[2021-12-09 00:32] LABS: Appearance Urine CLEAR; Color Urine YELLOW; Glucose Urine UA NEG (NEG); Leukocyte Esterase Urine NEG (NEG); Nitrite Urine NEG (NEG); Urine Blood NEG (NEG); Urine Ketones NEG (NEG); Urine Protein NEG (NEG-TRACE)
[2021-12-09 00:47] LABS: Amphetamine Screen Urine Not Detected (Not Detect); Barbiturates, Urine Not Detected (Not Detect); Benzodiazepines Screen Urine Not Detected (Not Detect); Cannabinoid Screen Urine POSITIVE (Not Detect); Cocaine Screen Urine Not Detected (Not Detect); Fentanyl, urine POSITIVE (Not Detect); Opiate Screen Urine Not Detected (Not Detect); Phencyclidine Screen Urine Not Detected (Not Detect)
[2021-12-09] MEDS: LORazepam 1 MG TABLET 2 MG PO (00:50)
[2021-12-09 01:52] VITALS: RESP 16
[2021-12-09 03:52] VITALS: BP 110/53; PULSE 70; RESP 16; TEMP 36.7; O2SAT 98
--- NOTE | 2021-12-09 05:52 | PC.NURSE ---
pt sleeping comfortably on chair. changed into hospital gown, belongings secured, pt with constant observation. no apparent distress. will continue to monitor closely
[2021-12-09 06:00] VITALS: BP 108/57; PULSE 83; RESP 16; TEMP 36.1; O2SAT 98
[2021-12-09 08:53] VITALS: BP 142/72; PULSE 65; RESP 18; TEMP 36.7; O2SAT 94
--- NOTE | 2021-12-09 12:01 | MHC.CARE ---
Pt is a 61 y/o, , [place] speaking woman who is previously known to the CARE Team through a prior assessment and inpatient stay.? Today, pt presented to the ED with worsening depression, anxiety, relapse on alcohol and thoughts of self-harm.? Pt has been medically cleared and is being assessed by the CARE Team to determine appropriate treatment recommendations. Pt has a hx of one inpt hospitalization at this facility.? Pt stated that she is compliant with her medications as prescribed. Prior documented hx of PTSD, Major depressive disorder, Alcohol use disorder, and Opioid use disorder.? Pt has a hx of substance use and had been in recovery for 15 years prior to her use of substances in February 2021.? Pt reports a recent relapse on alcohol and binge drinking for ?The past couple of months. Pt is alert and oriented x4 and is assessed in her room in the Main ED of the [facility].? She is dressed in hospital attire and appears her stated age.? She is engaged in the assessment and is help seeking but appears unsure of what type of help she needs.? She suggests that her psychiatric medications may no longer be effective.? Her eye contact and speech are within normal LIMITS.? She states her sleep is poor, her appetite is fair.? She describes her mood as depressed; her affect is congruent with her mood.? She endorses elevated anxiety as well.? She cannot attribute this worsening depression and elevated anxiety to anything specific.? She is unsure if the increased depression and anxiety is due to her recent relapse and binge drinking or if began to become elevated prior to her relapse.? She denies AVH and HI.? She denies SI, HI, , and self-harm urges.? Insight, memory, impulse control and concentration appear fair.? Judgement appears poor. Pt?s functioning appears diminished due to frequent alcohol consumption.? She reports continuing to work at [employer], attends to her ADLs, and is engaged in a romantic relationship.? She recently relapsed on alcohol.? She reports having a therapist through [facility]; she stated she is on a wait list for a Psychiatrist.? Her medications are prescribed by her PCP Dr. Mckeon.? She was discharged from in March 2021 with medication changes. CARE Team speaks with [facility] and is advised she is on a wait list for a psychiatrist.? Comparatively, the wait list at [facility] is shorter than most being between 3 and 6 months.? Pt has not been seen since August of this year as she hasn?t been attending her appointments.? Pt?s regular therapist has left [facility] and pt has been reassigned to another therapist with their first appointment being on 11/28 which she missed.? CARE Team is told that by not attending her appointments she is making it difficult to secure a psychiatrist.? [facility] will confirm whether a second appointment has been made. CARE Team speaks with pt?s significant other for the purpose of gathering collateral information.? Pt?s significant other, Ministerio Cheatham, stated he believes that the alcohol use is the greater problem that needs to be overcome and that the psychiatric concerns are secondary and likely associated with her alcohol use.? He also expressed suspicions that she may be using heroin again though he did say he could not confirm that.? Mr. Cheatham stated that pt does have family supports and community supports in place but she does not utilize those supports therapeutically.? She does not attend her counseling sessions, when she does speak with her therapist or clinician at the suboxone clinic, she is not forthcoming.? He reports that she is able to return home. Pt does not appear to be a risk, nor does she meet criteria for inpatient level of CARE.? Pt had initially declined any Recovery resources.? CARE Team spoke with pt about her alcohol consumption and suggested she speak with the Recovery team.? Pt agreed to do so.? Pt has been referred to the Recovery Team.
--- NOTE | 2021-12-09 12:29 | PHA.MEDREC ---
Pharmacy Consult ? Medication Reconciliation Pharmacy has completed the medication reconciliation.
--- NOTE | 2021-12-09 13:14 | MHC.RECOVRN ---
Met with pt in ED 19H after pt cleared by CARE Team. Pt reports alcohol use, 6-8 shots Fireball daily x a few months. Pt denies other substances. Pt denies being prescribed medications for AUD or OUD. 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 Pt interested in ATS. Pt was informed [facility] does not have beds available today due to lack of nursing staff, however, intake at informed t/w beds will probably be available tomorrow. [facility] does have bed availability, t/w will send referral.
--- NOTE | 2021-12-09 15:35 | MHC.RECOVRN ---
Pt accepted to [facility] [place]. Will be transported via [employer] at 1600.
== END 2021-12-09 16:07 ==
PROVIDERS: Emergency Provider Internal Medicine; PCP Physician Assistant
DX: F10.24 Alcohol dependence with alcohol-induced mood disorder (principal); Y90.5 Blood alcohol level of 100-119 mg/100 ml; R45.851 Suicidal ideations; F32.A Depression, unspecified; F41.9 Anxiety disorder, unspecified; F11.20 Opioid dependence, uncomplicated; F17.210 Nicotine dependence, cigarettes, uncomplicated; E66.9 Obesity, unspecified; Z68.32 Body mass index [BMI] 32.0-32.9, adult; Z91.51 Personal history of suicidal behavior; Z79.899 Other long term (current) drug therapy
CPT/HCPCS: 36415; 80048; 80307; 81003; 82077; 85025; 87635; 99285

== ENCOUNTER → 2021-12-30 10:23 | Outpatient (BNVA) | payer OTHER, SELFPAY | PROVIDERS: PCP Physician Assistant; Visit Provider Nurse Practitioner Psychiatric/Mental Health | DX: F10.20 Alcohol dependence, uncomplicated (principal); F11.21 Opioid dependence, in remission | CPT/HCPCS: 99211 ==

== ENCOUNTER 2022-01-19 13:11 | Outpatient (REF) | payer OTHER, SELFPAY ==
--- NOTE | ~2022-01-19 | XR_ITS ---
EXAMINATION: XR LUMBOSACRAL SPINE CLINICAL INFORMATION: Sciatica. COMPARISON: September 16, 2020. TECHNIQUE: Three views of the lumbosacral spine. FINDINGS: Examination demonstrates a disc spacing device at L4-L5, unchanged. There are severe disc and facet degenerative changes at L5-S1. No spondylolysis or spondylolisthesis is seen. Vertebral body heights appear maintained. Bony mineralization appears preserved. There is minimal lower lumbar levocurvature. The paraspinal soft tissues appear unremarkable. The aorta and iliac arteries are calcified. XR/XR lumbar spine 2-3V IMPRESSION: Degenerative and postoperative changes.
== END 2022-01-19 13:12 | disposition home or self-care (01) ==
LOC: HO.XRAY 13:11
PROVIDERS: PCP Physician Assistant; Visit Provider Physician Assistant
DX: M51.9 Unspecified thoracic, thoracolumbar and lumbosacral intervertebral disc disorder (principal)
CPT/HCPCS: 72100

== ENCOUNTER → 2022-02-10 13:52 | Outpatient (BNVA) | payer OTHER, SELFPAY | PROVIDERS: PCP Physician Assistant; Visit Provider Nurse Practitioner Family | DX: F11.20 Opioid dependence, uncomplicated (principal); F10.20 Alcohol dependence, uncomplicated; M46.1 Sacroiliitis, not elsewhere classified; M70.60 Trochanteric bursitis, unspecified hip; M25.562 Pain in left knee; M54.16 Radiculopathy, lumbar region; M96.1 Postlaminectomy syndrome, not elsewhere classified; M47.816 Spondylosis without myelopathy or radiculopathy, lumbar region; M51.9 Unspecified thoracic, thoracolumbar and lumbosacral intervertebral disc disorder | CPT/HCPCS: 99202 ==

== ENCOUNTER 2022-02-16 14:13 | Outpatient (REF) | payer OTHER, SELFPAY ==
--- NOTE | ~2022-02-16 | XR_ITS ---
EXAMINATION: XR BILATERAL HIPS WITH AP PELVIS CLINICAL INFORMATION: Sacroiliitis, not elsewhere classified. COMPARISON: 10/06/2019 TECHNIQUE: AP and frog-leg lateral views of each hip and an AP view of the pelvis. FINDINGS: Mild osteoarthrosis of the hips is characterized by acetabular osteophytes primarily. The joint spaces appear relatively well preserved. Additional mild osteoarthritis is evident in the sacroiliac joints. Pubic symphysis is normal. No fracture or malalignment. Bone mineralization is normal. Degenerative spondylosis is noted in the lower lumbar spine with solid interbody fusion at L4-L5 and significant facet arthropathy at L5-S1. No acute soft tissue findings. No evidence of avascular necrosis. XR/XR hip BI w PEL1V IMPRESSION: Mild osteoarthritis in the hips and SI joints. Marked facet arthropathy and associated degenerative disc disease at L5-S1.
--- NOTE | ~2022-02-16 | XR_ITS ---
EXAMINATION: XR KNEE, LEFT CLINICAL INFORMATION: Left knee pain. COMPARISON: None TECHNIQUE: Four views of the left knee. FINDINGS: Small tricompartmental marginal osteophytes. Chondrocalcinosis in the medial compartment. Joint spaces appear relatively well preserved. No joint effusion. Bone mineralization appears normal. Soft tissues are unremarkable. No fracture or malalignment. XR/XR knee LT 3V IMPRESSION: Minimal tricompartmental osteoarthritis. Chondrocalcinosis in the medial compartment. No acute osseous findings.
== END 2022-02-16 14:14 | disposition home or self-care (01) ==
LOC: HO.XRAY 14:13
PROVIDERS: PCP Physician Assistant; Visit Provider Nurse Practitioner Family
DX: M25.562 Pain in left knee (principal); M46.1 Sacroiliitis, not elsewhere classified; M70.60 Trochanteric bursitis, unspecified hip
CPT/HCPCS: 73521; 73562

== ENCOUNTER 2022-03-05 15:51 | Outpatient (REF) | payer OTHER, SELFPAY ==
--- NOTE | ~2022-03-05 | MR_ITS ---
EXAMINATION: MR LUMBAR SPINE WITHOUT CONTRAST CLINICAL INFORMATION: Lower back pain, left hip and leg pain COMPARISON: Lumbar spine x-ray 01/19/2022 TECHNIQUE: MRI of the lumbar spine was obtained using routine sequences without contrast. FINDINGS: Susceptibility artifact related to an interbody cage at L4-L5 is noted. Postsurgical changes from L4-L5 laminectomy. Evaluation of the operative level is somewhat limited due to hardware artifact. Normal anatomic alignment. No suspicious marrow signal or focal osseous lesion. The vertebral body heights are maintained. Disc desiccation and height loss at L5-S1. The conus medullaris terminates at the level of L2. The distal spinal cord is normal in appearance. The cauda equina nerve roots appear normal. No significant abnormalities of the paraspinal musculature.. Limited evaluation of the intra-abdominal structures without significant abnormalities. The abdominal aorta is of normal contour and caliber. Left iliac bone graft harvest site. SPINAL LEVELS: L1-L2: No significant spinal canal or neuroforaminal narrowing. Mild to moderate facet arthropathy. L2-L3: No significant spinal canal or neuroforaminal narrowing. Mild to moderate facet arthropathy. L3-L4: Broad-based disc bulge with left greater than right foraminal protrusions. Moderate to severe facet arthropathy with bilateral joint effusions. Ligamentum flavum thickening. Mild central spinal canal stenosis. Mild bilateral neural foraminal narrowing, left greater than right. L4-L5: No significant spinal canal or evidence of high-grade neuroforaminal narrowing, within the limitations of hardware susceptibility artifact.. Mild to moderate facet arthropathy. Postlaminectomy changes. L5-S1: Severe right and moderate left facet arthropathy. Broad-based disc bulge. No significant central spinal canal stenosis. Mild left and moderate right neural foraminal narrowing with impingement of the foraminal right L5 nerve root. MR/MR lumbar spine wo con IMPRESSION: Postsurgical changes from L4-L5 laminectomy with interbody cage. No significant spinal canal or neural foraminal stenosis at the operative level At L3-L4, there is mild degenerative disc disease and severe facet arthropathy with bilateral joint effusions, mild spinal canal stenosis, and mild bilateral neural foraminal narrowing. At L5-S1, degenerative disc and facet disease contributes to mild left and moderate right neural foraminal narrowing with impingement of the foraminal right L5 nerve root. Mild to moderate facet arthropathy at L1-L2 and L2-L3
== END 2022-03-05 15:52 | disposition home or self-care (01) ==
LOC: HO.MRI 15:51
PROVIDERS: Visit Provider Nurse Practitioner Family
DX: M47.816 Spondylosis without myelopathy or radiculopathy, lumbar region (principal); M54.16 Radiculopathy, lumbar region; M96.1 Postlaminectomy syndrome, not elsewhere classified
CPT/HCPCS: 72148

== ENCOUNTER 2022-03-12 21:09 | Inpatient (IN) | payer OTHER, SELFPAY ==
--- NOTE | ~2022-03-12 | XR_ITS ---
EXAMINATION: XR knee RT 4V, XR knee LT 4V CLINICAL INFORMATION: Reason for Exam fall, pain COMPARISON: Left knee radiographs 02/16/2022, right knee radiographs 04/29/2020 TECHNIQUE: 4 views bilateral knees FINDINGS: Right knee: Small knee joint effusion. No acute fracture or dislocation is identified. Mild tricompartmental knee joint osteoarthritis with small marginal osteophytes and mild medial compartment joint space narrowing. Faint chondrocalcinosis at the medial and lateral compartments. Small enthesophyte at the superior patellar pole. Left knee: No acute fracture, dislocation, or knee joint effusion. Mild tricompartmental knee joint osteoarthritis with mild medial compartment joint space narrowing, subchondral sclerosis, small marginal osteophytes. Chondrocalcinosis at the medial and lateral compartments. No osseous lesion. XR/XR knee LT 4V IMPRESSION: 1. No acute osseous injury identified at either knee. 2. Small right knee joint effusion. 3. Mild bilateral knee joint osteoarthritis. 4. Chondrocalcinosis.
--- NOTE | ~2022-03-12 | XR_ITS ---
EXAMINATION: XR knee RT 4V, XR knee LT 4V CLINICAL INFORMATION: Reason for Exam fall, pain COMPARISON: Left knee radiographs 02/16/2022, right knee radiographs 04/29/2020 TECHNIQUE: 4 views bilateral knees FINDINGS: Right knee: Small knee joint effusion. No acute fracture or dislocation is identified. Mild tricompartmental knee joint osteoarthritis with small marginal osteophytes and mild medial compartment joint space narrowing. Faint chondrocalcinosis at the medial and lateral compartments. Small enthesophyte at the superior patellar pole. Left knee: No acute fracture, dislocation, or knee joint effusion. Mild tricompartmental knee joint osteoarthritis with mild medial compartment joint space narrowing, subchondral sclerosis, small marginal osteophytes. Chondrocalcinosis at the medial and lateral compartments. No osseous lesion. XR/XR knee RT 4V IMPRESSION: 1. No acute osseous injury identified at either knee. 2. Small right knee joint effusion. 3. Mild bilateral knee joint osteoarthritis. 4. Chondrocalcinosis.
--- NOTE | ~2022-03-12 | XR_ITS ---
EXAMINATION: XR lumbar spine 2-3V, XR sacrum coccyx min 2V CLINICAL INFORMATION: Reason for Exam fall, pain COMPARISON: Lumbar spine radiographs 01/19/2022, CT abdomen pelvis 03/19/2019. TECHNIQUE: AP and lateral lumbar spine; AP and lateral views of the sacrum and coccyx FINDINGS: Lumbar spine: Normal alignment of the lumbar spine. No subluxation. Vertebral body heights are maintained. No acute fracture. Status post prior dorsal decompression and interbody fusion with spacers at L4-L5, unchanged. Moderate disc height loss at L5-S1 with vacuum disc phenomenon, endplate sclerosis and mild endplate proliferative change, similar to prior. Mild disc height loss at L3-L4 with endplate sclerosis and proliferative change, also similar to prior. Mild disc degenerative changes in the lower thoracic spine. Lower lumbar facet arthrosis. Mild to moderate aortic and proximal iliac arterial vascular calcifications. Sacrum and coccyx: Ventral angulation of the lower coccyx, unchanged since CT abdomen pelvis 03/19/2019. No appreciable acute displaced sacrococcygeal fracture. SI joints are congruent and intact with mild subchondral sclerosis. Pubic symphysis is also congruent and appears intact. XR/XR lumbar spine 2-3V IMPRESSION: 1. No subluxation or acute fracture of the lumbar spine. 2. No acute displaced fracture of the sacrum or coccyx. 3. Status post dorsal decompression and interbody fusion at L4-L5. 4. Similar appearance of multilevel lumbar spondylosis.
--- NOTE | ~2022-03-12 | XR_ITS ---
EXAMINATION: XR CHEST CLINICAL INFORMATION: Shortness of breath COMPARISON: Chest x-ray 09/16/2021 TECHNIQUE: Frontal view of the chest was obtained. FINDINGS: No airspace consolidation, pleural effusion, or pneumothorax. Consider mildly increased reticular interstitial markings bilaterally, perhaps slightly improved when compared to prior. Normal cardiomediastinal silhouette. No evidence of pulmonary edema. No acute osseous injury. Evidence of prior left distal clavicle excision. XR/XR chest 1V IMPRESSION: 1. No acute pulmonary process. 2. Mildly increased reticular interstitial markings bilaterally, perhaps slightly improved when compared to prior. Findings are nonspecific and may be due to chronic interstitial change or small airways disease.
--- NOTE | ~2022-03-12 | CT_ITS ---
EXAMINATION: CT HEAD WITHOUT CONTRAST CLINICAL INFORMATION: Fall. Hit head. COMPARISON: None available. TECHNIQUE: Contiguous axial imaging was performed from the skull base to vertex without intravenous administration of contrast. This CT examination was performed using dose optimization techniques as appropriate, variously including the following: *Automated exposure control. *Adjustment of mA and/or kV according to patient size (this includes techniques or standardized protocols for targeted exams where dose is matched to indication/reason for exam; i.e. extremities or head). *Use of iterative reconstruction technique. DLP: 1018 mGy-cm FINDINGS: There is no evidence of acute intracranial hemorrhage or edematous territorial infarction. Hernandez-white matter differentiation is preserved. A few foci of hypoattenuation in the periventricular and deep white matter are consistent with mild microangiopathy. The ventricles are normal in morphology and size. No evidence for obstructive hydrocephalus. No abnormal mass effect or midline shift. No extra-axial fluid collections. No acute soft tissue or osseous abnormalities. The mastoid air cells and visualized paranasal sinuses are clear. CT/CT head/brain wo IV con IMPRESSION: 1. No evidence of acute intracranial hemorrhage or edematous territorial infarction. 2. Mild underlying microangiopathy.
--- NOTE | ~2022-03-12 | XR_ITS ---
EXAMINATION: XR lumbar spine 2-3V, XR sacrum coccyx min 2V CLINICAL INFORMATION: Reason for Exam fall, pain COMPARISON: Lumbar spine radiographs 01/19/2022, CT abdomen pelvis 03/19/2019. TECHNIQUE: AP and lateral lumbar spine; AP and lateral views of the sacrum and coccyx FINDINGS: Lumbar spine: Normal alignment of the lumbar spine. No subluxation. Vertebral body heights are maintained. No acute fracture. Status post prior dorsal decompression and interbody fusion with spacers at L4-L5, unchanged. Moderate disc height loss at L5-S1 with vacuum disc phenomenon, endplate sclerosis and mild endplate proliferative change, similar to prior. Mild disc height loss at L3-L4 with endplate sclerosis and proliferative change, also similar to prior. Mild disc degenerative changes in the lower thoracic spine. Lower lumbar facet arthrosis. Mild to moderate aortic and proximal iliac arterial vascular calcifications. Sacrum and coccyx: Ventral angulation of the lower coccyx, unchanged since CT abdomen pelvis 03/19/2019. No appreciable acute displaced sacrococcygeal fracture. SI joints are congruent and intact with mild subchondral sclerosis. Pubic symphysis is also congruent and appears intact. XR/XR sacrum coccyx min 2V IMPRESSION: 1. No subluxation or acute fracture of the lumbar spine. 2. No acute displaced fracture of the sacrum or coccyx. 3. Status post dorsal decompression and interbody fusion at L4-L5. 4. Similar appearance of multilevel lumbar spondylosis.
--- NOTE | ~2022-03-12 | CT_ITS ---
EXAMINATION: CT ANGIOGRAM OF THE CHEST WITH AND WITHOUT CONTRAST (CT PULMONARY ANGIOGRAM FOR PE) CLINICAL INFORMATION: Recent COVID. Hypoxia. +d dimer. COMPARISON: Chest radiograph from 03/12/2022. TECHNIQUE: Prior to contrast administration, noncontrast localization images were obtained. Subsequently, multidetector volumetric imaging was performed from the thoracic inlet to below the diaphragms following the administration of 65 mL Omnipaque 350 intravenous contrast. No contrast reaction reported. Sagittal, coronal, and MIP oblique sagittal reformatted images were obtained on the CT workstation, uploaded to PACS, and reviewed. This CT examination was performed using dose optimization techniques as appropriate, variously including the following: *Automated exposure control. *Adjustment of mA and/or kV according to patient size (this includes techniques or standardized protocols for targeted exams where dose is matched to indication/reason for exam; i.e. extremities or head). *Use of iterative reconstruction technique. DLP: 349 mGy-cm FINDINGS: QUALITY OF STUDY/CONTRAST BOLUS: Moderate respiratory motion. Satisfactory contrast bolus. PULMONARY ARTERIES: There is a nonocclusive thrombus within the right lower and middle lobar pulmonary arteries partially extending into the segmental branches. THORACIC AORTA: The thoracic aorta is of normal contour and caliber with moderate calcific atherosclerotic disease. No aneurysm or dissection. LUNG: Mosaic attenuation pattern of the upper lungs. Mild interlobular septal thickening in the lung apices. There are patchy irregular groundglass opacities predominantly scattered throughout the periphery of the lungs. No demonstrated dense consolidative process. No evidence of pleural effusion or pneumothorax. MEDIASTINUM: Normal heart size. No pericardial effusion. Moderately prominent right hilar/peribronchial lymphoid tissue. No mediastinal lymphadenopathy. No evidence of septal bowing or right heart strain. Coronary artery calcifications: Present - mild. CHEST WALL/AXILLA: No axillary or internal mammary lymphadenopathy. OSSEOUS STRUCTURES: Mild left convex curvature of the thoracic spine. Mild to moderate multilevel degenerative spondyloarthropathy of the thoracic spine. No acute or suspicious osseous abnormality. UPPER ABDOMEN: No demonstrated significant abnormalities of the visualized upper abdomen. No reflux of contrast into the hepatic veins to suggest elevated right heart pressures. CT/CT angio chest PE protocol IMPRESSION: 1. There is a nonocclusive pulmonary embolism within the right lower and middle lobar pulmonary arteries partially extending into the segmental branches. 2. There is a mosaic attenuation pattern of the upper lungs with patchy irregular groundglass opacities predominantly scattered throughout the periphery of the lungs. Commonly reported imaging features of COVID-19 pneumonia are present. Other processes such as influenza pneumonia or organizing pneumonia can cause a similar imaging appearance, as can certain drug toxicities and connective tissue disorders. VTE: positive. This critical result was discussed with AGNIESZKA Carrera at 01:22 on 03/13/2022 and it was ascertained that the content and urgency of the report was understood at the time of direct communication.
[2022-03-12 21:30] VITALS: BP 97/53; PULSE 74; RESP 16; TEMP 36.3; O2SAT 85; BMI 32.5
--- NOTE | 2022-03-12 21:38 | ECG_ITS ---
Test Reason : CHEST PAIN Blood Pressure : / mmHG Vent. Rate : 076 BPM Atrial Rate : 076 BPM P-R Int : 138 ms QRS Dur : 092 ms QT Int : 398 ms P-R-T Axes : 010 032 042 degrees QTc Int : 447 ms Sinus rhythm with Premature supraventricular complexes Incomplete right bundle branch block Borderline ECG When compared with ECG of 11-JAN-2019 00:15, Premature supraventricular complexes are now Present Referred By: Generic ED Physician Electronically Signed By:STEFANIE JEAN MD
[2022-03-12 22:01] LABS: MANUAL DIFF FLAG NO
[2022-03-12 22:05] LABS: Basophils Percent Auto 0.3 % (0-2); Eosinophils Absolute Auto 0.3 X10*3/uL (0.0-0.4); Eosinophils Percent Auto 2.7 % (0-4); Hematocrit 36.9 % (37.0-47.0); Hemoglobin 12.2 g/dl (12.0-16.0); Imm Gran Abs Auto 0.03 X10*3/uL (0.00-0.03); Imm Gran Pct Auto 0.3 % (0.0-0.4); Lymphocytes Absolute Auto 2.9 X10*3/uL (1.2-4.9); Lymphocytes Percent Auto 26.3 % (20-40); Mean Corpuscular HGB Conc 33.1 g/dl (31.0-35.0); Mean Corpuscular Hemoglobin 28.9 pg (27.0-33.0); Mean Corpuscular Volume 87.4 fL (80.0-98.0); Mean Platelet Volume 10.1 fL (9.4-12.3); Monocytes Absolute Auto 0.7 X10*3/uL (0.1-1.2); Monocytes Percent Auto 6.1 % (2-11); Neutrophils Absolute Auto 7.1 x10*3/uL (2.0-8.3); Neutrophils Percent Auto 64.3 % (45-73); Platelet Count 219 X10*3/uL (160-400); Red Blood Count 4.22 X10*6/uL (4.20-5.50); Red Cell Distribution Width 14.6 % (11.0-16.0)
--- NOTE | 2022-03-12 22:21 | ED.SOB ---
HPI - SOB/Dyspnea General Chief Complaint: Dyspnea Stated Complaint: SOB/Fall Time Seen by Provider: 03/12/22 22:10 Source: patient Mode of arrival: ambulatory Limitations: no limitations History of Present Illness HPI Narrative: 61-year-old female with a history of hypertension, alcohol use disorder, opiate use disorder on suboxone, longstanding smoker w/ emphysema presents today fall, shortness of breath. Patient tells me that she was standing on a table when she lost her balance falling hitting her head. No loss of conscious. Also struck both knees and her buttocks area. No anticoagulation use. Patient reports shortness of breath over the last 2 days. Patient had COVID 2 weeks ago. She is still coughing. No fevers, leg swelling or leg pain, chest pain. Related Data Home Medications Medication Instructions Recorded Confirmed multivitamin 1 tab PO DAILY 02/10/22 03/13/22 buprenorphine 8 mg-naloxone 2 mg 1 strip sublingual DAILY 03/13/22 03/13/22 sublingual film (Suboxone) Previous Rx's Medication Instructions Recorded blood pressure test kit-medium #1 ea 07/23/21 albuterol sulfate 90 mcg/actuation 1 puff PO Q4H PRN bronchospasm 08/31/21 aerosol inhaler (ProAir HFA) #8.5 caps nicotine (polacrilex) 4 mg buccal 4 mg buccal Q2-4H PRN nicotine 10/09/21 lozenge cravings 30 days #216 ea omeprazole 40 mg capsule,delayed 40 mg PO DAILY 90 days #90 caps 10/31/21 release umeclidinium 62.5 mcg-vilanterol 1 inh inhalation DAILY 30 days #1 11/06/21 25 mcg/actuation powdr for ea inhalation (Anoro Ellipta) fluoxetine 20 mg capsule 60 mg PO DAILY #90 caps 12/15/21 clonidine HCl 0.2 mg tablet 0.2 mg PO BID 30 days #60 tabs 12/19/21 clonazepam 1 mg tablet 1 mg PO DAILY 30 days #30 tabs 01/06/22 hydrochlorothiazide 12.5 mg tablet 12.5 mg PO DAILY 30 days #30 tabs 01/17/22 gabapentin 400 mg capsule 400 mg PO TID 30 days #90 caps 01/24/22 hydroxyzine HCl 25 mg tablet 25 mg PO BEDTIME 30 days #30 tabs 02/24/22 diclofenac potassium 50 mg tablet 50 mg PO BID PRN pain, severe 30 02/28/22 days #60 tabs trazodone 50 mg tablet 50 mg PO BEDTIME PRN for insomnia 03/01/22 90 days #90 tabs Allergies Allergy/AdvReac Type Severity Reaction Status Date / Time Penicillins [PENICILLINS] Allergy Intermediate RASH Verified 02/10/22 14:00 (CHILDHOOD ALLERGY) Review of Systems Review of Systems: Yes all other systems are reviewed and are negative Constitutional: Constitutional: Reports no additional constitutional complaints, Denies body ache(s), Denies chills, Denies fever(s), Denies headache(s) and Denies weakness Eyes: Eyes: Reports no additional eye complaints and Denies change in vision ENT: Reports system reviewed and no additional complaints, except as documented, Denies dizziness, Denies headache(s), Denies nasal congestion, Denies nasal discharge and Denies neck pain Cardiovascular: Cardiovascular: Reports no additional cardiovascular complaints, Denies chest pain, Denies leg edema and Reports dyspnea Respiratory: Respiratory: Reports no additional respiratory complaints, Denies cough and Reports dyspnea Gastrointestinal: Gastrointestinal: Reports no additional gastrointestinal complaints, Denies abdominal pain, Denies diarrhea, Denies nausea and Denies vomiting Genitourinary: Genitourinary: Reports no additional female genitourinary complaints and Denies urinary incontinence Musculoskeletal: Musculoskeletal: Reports no additional musculoskeletal complaints, Reports back pain, Reports arthralgias, Denies joint swelling, Denies neck pain, Denies numbness and Denies tingling Integumentary/Breasts: Skin/Breast: Reports system reviewed and no additional complaints, except as docu and Denies rash Neurologic: Reports system reviewed and no additional complaints, except as documented, Denies Abnormal speech present, Denies dizziness, Denies headache(s), Denies numbness, Denies tingling and Denies weakness [facility] Past Medical History Attestation statement: The following information was validated with the patient. Source: old records reviewed and nursing notes reviewed Medical History Acute anxiety Depression Ganglion cyst GERD (gastroesophageal reflux disease) Insomnia Obese Otitis externa RUQ abdominal pain Tubular adenoma of colon Surgical History History of esophagogastroduodenoscopy (EGD) Hx of colonoscopy Previous back surgery Family History Family History Father Alzheimer disease Mother Stroke Brother Esophageal cancer Other Mental problem Substance abuse Social History Social History Household Members: Significant Other Household Members Other:: 1 Housing: Apartment Do you presently have visiting nurse or other home services: No Alcohol intake: former Patient Tobacco Use Status: Former Tobacco user Tobacco use type: Cigarette Cigarette Packs Per Day: 1 Cigarettes Per Day: 20.0 Years Smoked: 40 e-Cigarette/Vaping Use: Currently Using Second Hand Smoke Exposure: Yes Substance Use Type: Heroin service: No Current occupational status: employed 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[employer], 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 Sexual orientation: Straight/Heterosexual Cognitive needs: No Hearing needs: No Vision needs: No Physical Exam Vital Signs: Vital Signs: Last Vital Signs Temp 97.4 F 03/14/22 00:00 Pulse 68 03/14/22 00:00 Resp 14 03/14/22 00:00 BP 117/62 03/14/22 00:00 Pulse Ox 93 03/14/22 00:00 O2 Del Method 03/14/22 00:00 O2 Flow Rate 1.5 03/14/22 00:00 BMI result Body Mass Index 32.5 Const: General: cooperative, healthy appearing, comfortable and no acute distress Orientation/consciousness: patient oriented x3 Limitations: no limitations HEENT: Head: Yes normal to inspection Ears: hearing grossly normal bilaterally General nose exam: Normal external nose present Face and sinus: Yes normal facial exam Mouth: Normal oral and palatal mucosa present Throat: Yes posterior oropharynx normal Eyes: General: appearance normal, both eyes and all related structures Pupils: Equal, round and reactive pupils present Neck: Other: No cervical midline tenderness, step-offs deformities Neck: Yes normal visual inspection and Yes full ROM Chest: Chest palpation & inspection: normal inspection of the chest Resp: Other: Mild tachypnea, x-ray wheezing throughout Cardio: Rate: regular rate Rhythm: regular rhythm Peripheral pulses: Peripheral pulses 2+ throughout GI: Inspection: Yes normal to inspection Palpation (GI): Soft to palpation and nontender Auscultation: normal bowel sounds Back/Spine/Pelvis: Thoracic/Lumbar Spine: thoracic and lumbar spine normal to inspection Skin: General skin exam: no rashes or lesions noted Neuro: General: patient oriented x3, moves all extremities, no focal motor deficits and normal sensation to monofilament Cranial nerves: Yes CN's II-XII intact bilaterally, Yes Equal, round and reactive pupils present, Yes Bilaterally intact EOM present, Yes Nystagmus not present, Yes Normal facial strength present and Yes Midline tongue present Cognition (Neuro): normal cognition Speech: No Abnormal speech present Gait exam (Neuro): Normal gait present Motor exam (neuro): 5/5 motor strength present throughout Sensory Exam: Normal double simultaneous stimulation for sensation Extrem: Other: Abrasions to both of the lower extremities in various stages of healing. Mild tenderness to both anterior knees with full range of motion, no ecchymosis or crepitus Tenderness to the lumbar mid spine into the coccyx with no palpable step-offs or deformities General: Yes normal to inspection, Yes no pedal edema and Yes no calf tenderness Course Course Course Narrative: 2345-lactic acid/leukocytosis is mildly elevated. This is not from infection. This is secondary to albuterol and dehydration. Tachypnea/hypoxia secondary to PE and not from infection. Patient had COVID recently with a elevated D-dimer here and new hypoxia. Consider PE. CTA was ordered. Patient also had recent trauma with head strike so will check CT head as well Reevaluation(s) Reevaluation #1: 0120-Call from [place] [facility]-patient has ground-glass opacities on CT scan as well as pulmonary embolism on the right side. Discussed with Dr. Robertson who accepted admission. Will start Eliquis. Patient has history of polysubstance use but has been on Suboxone and doing well. She also has history of alcohol use disorder. She tells me her last drink was 1 yesterday but otherwise she has been doing well. Reevaluation #2: 0200-UA shows trace leuks. Spoke to patient she does report some urinary frequency and urgency. At this time infection suspected. Antibiotics ordered MDM - SOB/Dyspnea MDM Narrative Medical decision making narrative: 61-year-old female with a history of emphysema, currently smoking, polysubstance, alcohol use disorder here after fall which patient reports is from losing her balance also complaining of shortness of breath with cough with recent COVID-19 infection. On arrival patient's room air saturation is 85% Medical Records Attestation: I reviewed the patient's medical records. Lab Data Attestation: I reviewed the patient's lab results. Result diagrams: 03/13/22 06:43 03/13/22 06:43 Labs: Lab Results 03/12/22 03/12/22 03/12/22 Range/Units 21:51 21:51 21:51 WBC 11.0 H (4.8-10.8) X10*3/uL RBC 4.22 (4.20-5.50) X10*6/uL Hgb 12.2 (12.0-16.0) g/dl Hct 36.9 L (37.0-47.0) % MCV 87.4 (80.0-98.0) fL MCH 28.9 (27.0-33.0) pg MCHC 33.1 (31.0-35.0) g/dl RDW 14.6 (11.0-16.0) % Plt Count 219 (160-400) X10*3/uL MPV 10.1 (9.4-12.3) fL Immature Gran % (Auto) 0.3 (0.0-0.4) % Neut % (Auto) 64.3 (45-73) % Lymph % (Auto) 26.3 (20-40) % Lumpkin % (Auto) 6.1 (2-11) % Eos % (Auto) 2.7 (0-4) % Baso % (Auto) 0.3 (0-2) % Lymph # (Auto) 2.9 (1.2-4.9) X10*3/uL Lumpkin # (Auto) 0.7 (0.1-1.2) X10*3/uL Eos # (Auto) 0.3 (0.0-0.4) X10*3/uL Baso # (Auto) 0.0 (0.0-0.2) X10*3/uL Abs Immat Gran (auto) 0.03 (0.00-0.03) X10*3/uL Absolute Neuts (auto) 7.1 (2.0-8.3) x10*3/uL Absolute Nucleated RBC 0.000 (0.0-0.012) X10*3/uL Nucleated RBC % (auto) 0.0 (0.0-0.2) /100WBC PT (10.0-13.1) SEC INR (0.9-1.1) APTT (26.0-36.4) SEC D-Dimer High Sensitivty NG/ML Sodium 135 (135-145) mmol/L Potassium 3.8 (3.3-5.1) mmol/L Chloride 96 (96-108) mmol/L Carbon Dioxide 28 (22-29) mmol/L Anion Gap 15 (12-20) BUN 11 (9-16) mg/dL Creatinine 0.66 (0.5-1.4) mg/dL Estim Creat Clear Calc 93.8 Estimated GFR > 60 Random Glucose 91 (60-115) mg/dL Lactic Acid (0.5-2.0) mmol/L Lactic Acid F/U @ 2Hr (0.5-2.0) mmol/L Calcium 8.9 (8.4-10.2) mg/dL Magnesium (1.6-2.6) mg/dL Total Bilirubin 0.5 (0.0-1.0) mg/dL AST 24 (5-31) U/L ALT 19 (0-31) U/L Alkaline Phosphatase 102 (39-117) U/L Troponin I High Sens < 3.5 (<3.5-17.0) ng/L B-Natriuretic Peptide (<100) pg/mL Total Protein 6.7 (6.5-8.0) g/dL Albumin 4.0 (3.5-5.0) g/dL Urine Color Urine Appearance Urine pH (5.0-9.0) Ur Specific Carmen (1.005-1.025) Urine Protein (Neg-Trace) mg/dL Urine Glucose (UA) (Negative) mg/dL Urine Ketones (Negative) mg/dL Urine Blood (Negative) Urine Nitrite (Negative) Ur Leukocyte Esterase (Negative) Urine RBC (0-2) /HPF Urine WBC (0-5) /HPF Ur Squamous Epith Cells (0-2) /HPF Urine Bacteria (None Seen) Hyaline Casts (0-2) /LPF Influenza Type A (PCR) (Negative) Influenza Type B (PCR) (Negative) RSV RNA Qual (PCR) (Negative) SARS-CoV-2 RNA (RT-PCR) (Negative) 03/12/22 03/12/22 03/12/22 Range/Units 21:51 23:17 23:17 WBC (4.8-10.8) X10*3/uL RBC (4.20-5.50) X10*6/uL Hgb (12.0-16.0) g/dl Hct (37.0-47.0) % MCV (80.0-98.0) fL MCH (27.0-33.0) pg MCHC (31.0-35.0) g/dl RDW (11.0-16.0) % Plt Count (160-400) X10*3/uL MPV (9.4-12.3) fL Immature Gran % (Auto) (0.0-0.4) % Neut % (Auto) (45-73) % Lymph % (Auto) (20-40) % Lumpkin % (Auto) (2-11) % Eos % (Auto) (0-4) % Baso % (Auto) (0-2) % Lymph # (Auto) (1.2-4.9) X10*3/uL Lumpkin # (Auto) (0.1-1.2) X10*3/uL Eos # (Auto) (0.0-0.4) X10*3/uL Baso # (Auto) (0.0-0.2) X10*3/uL Abs Immat Gran (auto) (0.00-0.03) X10*3/uL Absolute Neuts (auto) (2.0-8.3) x10*3/uL Absolute Nucleated RBC (0.0-0.012) X10*3/uL Nucleated RBC % (auto) (0.0-0.2) /100WBC PT (10.0-13.1) SEC INR (0.9-1.1) APTT (26.0-36.4) SEC D-Dimer High Sensitivty NG/ML Sodium (135-145) mmol/L Potassium (3.3-5.1) mmol/L Chloride (96-108) mmol/L Carbon Dioxide (22-29) mmol/L Anion Gap (12-20) BUN (9-16) mg/dL Creatinine (0.5-1.4) mg/dL Estim Creat Clear Calc Estimated GFR Random Glucose (60-115) mg/dL Lactic Acid 2.6 H* (0.5-2.0) mmol/L Lactic Acid F/U @ 2Hr (0.5-2.0) mmol/L Calcium (8.4-10.2) mg/dL Magnesium 2.1 (1.6-2.6) mg/dL Total Bilirubin (0.0-1.0) mg/dL AST (5-31) U/L ALT (0-31) U/L Alkaline Phosphatase (39-117) U/L Troponin I High Sens (<3.5-17.0) ng/L B-Natriuretic Peptide (<100) pg/mL Total Protein (6.5-8.0) g/dL Albumin (3.5-5.0) g/dL Urine Color Urine Appearance Urine pH (5.0-9.0) Ur Specific Carmen (1.005-1.025) Urine Protein (Neg-Trace) mg/dL Urine Glucose (UA) (Negative) mg/dL Urine Ketones (Negative) mg/dL Urine Blood (Negative) Urine Nitrite (Negative) Ur Leukocyte Esterase (Negative) Urine RBC (0-2) /HPF Urine WBC (0-5) /HPF Ur Squamous Epith Cells (0-2) /HPF Urine Bacteria (None Seen) Hyaline Casts (0-2) /LPF Influenza Type A (PCR) NEGATIVE (Negative) Influenza Type B (PCR) NEGATIVE (Negative) RSV RNA Qual (PCR) NEGATIVE (Negative) SARS-CoV-2 RNA (RT-PCR) NEGATIVE (Negative) 03/12/22 03/12/22 03/13/22 Range/Units 23:17 23:17 00:49 WBC (4.8-10.8) X10*3/uL RBC (4.20-5.50) X10*6/uL Hgb (12.0-16.0) g/dl Hct (37.0-47.0) % MCV (80.0-98.0) fL MCH (27.0-33.0) pg MCHC (31.0-35.0) g/dl RDW (11.0-16.0) % Plt Count (160-400) X10*3/uL MPV (9.4-12.3) fL Immature Gran % (Auto) (0.0-0.4) % Neut % (Auto) (45-73) % Lymph % (Auto) (20-40) % Lumpkin % (Auto) (2-11) % Eos % (Auto) (0-4) % Baso % (Auto) (0-2) % Lymph # (Auto) (1.2-4.9) X10*3/uL Lumpkin # (Auto) (0.1-1.2) X10*3/uL Eos # (Auto) (0.0-0.4) X10*3/uL Baso # (Auto) (0.0-0.2) X10*3/uL Abs Immat Gran (auto) (0.00-0.03) X10*3/uL Absolute Neuts (auto) (2.0-8.3) x10*3/uL Absolute Nucleated RBC (0.0-0.012) X10*3/uL Nucleated RBC % (auto) (0.0-0.2) /100WBC PT 12.9 (10.0-13.1) SEC INR 1.1 (0.9-1.1) APTT 30.4 (26.0-36.4) SEC D-Dimer High Sensitivty 320 NG/ML Sodium (135-145) mmol/L Potassium (3.3-5.1) mmol/L Chloride (96-108) mmol/L Carbon Dioxide (22-29) mmol/L Anion Gap (12-20) BUN (9-16) mg/dL Creatinine (0.5-1.4) mg/dL Estim Creat Clear Calc Estimated GFR Random Glucose (60-115) mg/dL Lactic Acid (0.5-2.0) mmol/L Lactic Acid F/U @ 2Hr (0.5-2.0) mmol/L Calcium (8.4-10.2) mg/dL Magnesium (1.6-2.6) mg/dL Total Bilirubin (0.0-1.0) mg/dL AST (5-31) U/L ALT (0-31) U/L Alkaline Phosphatase (39-117) U/L Troponin I High Sens (<3.5-17.0) ng/L B-Natriuretic Peptide 15 (<100) pg/mL Total Protein (6.5-8.0) g/dL Albumin (3.5-5.0) g/dL Urine Color Yellow Urine Appearance Clear Urine pH 7.0 (5.0-9.0) Ur Specific Carmen 1.010 (1.005-1.025) Urine Protein Negative (Neg-Trace) mg/dL Urine Glucose (UA) Negative (Negative) mg/dL Urine Ketones Negative (Negative) mg/dL Urine Blood Negative (Negative) Urine Nitrite Negative (Negative) Ur Leukocyte Esterase Trace H (Negative) Urine RBC 0-2 (0-2) /HPF Urine WBC 0-5 (0-5) /HPF Ur Squamous Epith Cells 3-5 (0-2) /HPF Urine Bacteria None Seen (None Seen) Hyaline Casts 0-2 (0-2) /LPF Influenza Type A (PCR) (Negative) Influenza Type B (PCR) (Negative) RSV RNA Qual (PCR) (Negative) SARS-CoV-2 RNA (RT-PCR) (Negative) 03/13/22 Range/Units 02:00 WBC (4.8-10.8) X10*3/uL RBC (4.20-5.50) X10*6/uL Hgb (12.0-16.0) g/dl Hct (37.0-47.0) % MCV (80.0-98.0) fL MCH (27.0-33.0) pg MCHC (31.0-35.0) g/dl RDW (11.0-16.0) % Plt Count (160-400) X10*3/uL MPV (9.4-12.3) fL Immature Gran % (Auto) (0.0-0.4) % Neut % (Auto) (45-73) % Lymph % (Auto) (20-40) % Lumpkin % (Auto) (2-11) % Eos % (Auto) (0-4) % Baso % (Auto) (0-2) % Lymph # (Auto) (1.2-4.9) X10*3/uL Lumpkin # (Auto) (0.1-1.2) X10*3/uL Eos # (Auto) (0.0-0.4) X10*3/uL Baso # (Auto) (0.0-0.2) X10*3/uL Abs Immat Gran (auto) (0.00-0.03) X10*3/uL Absolute Neuts (auto) (2.0-8.3) x10*3/uL Absolute Nucleated RBC (0.0-0.012) X10*3/uL Nucleated RBC % (auto) (0.0-0.2) /100WBC PT (10.0-13.1) SEC INR (0.9-1.1) APTT (26.0-36.4) SEC D-Dimer High Sensitivty NG/ML Sodium (135-145) mmol/L Potassium (3.3-5.1) mmol/L Chloride (96-108) mmol/L Carbon Dioxide (22-29) mmol/L Anion Gap (12-20) BUN (9-16) mg/dL Creatinine (0.5-1.4) mg/dL Estim Creat Clear Calc Estimated GFR Random Glucose (60-115) mg/dL Lactic Acid (0.5-2.0) mmol/L Lactic Acid F/U @ 2Hr 1.0 (0.5-2.0) mmol/L Calcium (8.4-10.2) mg/dL Magnesium (1.6-2.6) mg/dL Total Bilirubin (0.0-1.0) mg/dL AST (5-31) U/L ALT (0-31) U/L Alkaline Phosphatase (39-117) U/L Troponin I High Sens (<3.5-17.0) ng/L B-Natriuretic Peptide (<100) pg/mL Total Protein (6.5-8.0) g/dL Albumin (3.5-5.0) g/dL Urine Color Urine Appearance Urine pH (5.0-9.0) Ur Specific Carmen (1.005-1.025) Urine Protein (Neg-Trace) mg/dL Urine Glucose (UA) (Negative) mg/dL Urine Ketones (Negative) mg/dL Urine Blood (Negative) Urine Nitrite (Negative) Ur Leukocyte Esterase (Negative) Urine RBC (0-2) /HPF Urine WBC (0-5) /HPF Ur Squamous Epith Cells (0-2) /HPF Urine Bacteria (None Seen) Hyaline Casts (0-2) /LPF Influenza Type A (PCR) (Negative) Influenza Type B (PCR) (Negative) RSV RNA Qual (PCR) (Negative) SARS-CoV-2 RNA (RT-PCR) (Negative) Imaging Data Chest x-ray: Attestation: I personally reviewed and interpreted this imaging study as follows: Radiologist's impression: FINDINGS: No airspace consolidation, pleural effusion, or pneumothorax. Consider mildly increased reticular interstitial markings bilaterally, perhaps slightly improved when compared to prior. Normal cardiomediastinal silhouette. No evidence of pulmonary edema. No acute osseous injury. Evidence of prior left distal clavicle excision. XR/XR chest 1V IMPRESSION: 1.? No acute pulmonary process. 2.? Mildly increased reticular interstitial markings bilaterally, perhaps slightly improved when compared to prior. Findings are nonspecific and may be due to chronic interstitial change or small airways disease. ? lumbar/sacrum/coccyx x-ray: Attestation: I personally reviewed and interpreted this imaging study as follows: Radiologist's impression: FINDINGS: Lumbar spine: Normal alignment of the lumbar spine. No subluxation. Vertebral body heights are maintained. No acute fracture. Status post prior dorsal decompression and interbody fusion with spacers at L4-L5, unchanged. Moderate disc height loss at L5-S1 with vacuum disc phenomenon, endplate sclerosis and mild endplate proliferative change, similar to prior. Mild disc height loss at L3-L4 with endplate sclerosis and proliferative change, also similar to prior. Mild disc degenerative changes in the lower thoracic spine. Lower lumbar facet arthrosis. Mild to moderate aortic and proximal iliac arterial vascular calcifications. Sacrum and coccyx: Ventral angulation of the lower coccyx, unchanged since CT abdomen pelvis 03/19/2019. No appreciable acute displaced sacrococcygeal fracture. SI joints are congruent and intact with mild subchondral sclerosis. Pubic symphysis is also congruent and appears intact. left/right knee x-rays: Attestation: I personally reviewed and interpreted this imaging study as follows: Radiologist's impression: FINDINGS: Right knee: Small knee joint effusion. No acute fracture or dislocation is identified. Mild tricompartmental knee joint osteoarthritis with small marginal osteophytes and mild medial compartment joint space narrowing. Faint chondrocalcinosis at the medial and lateral compartments. Small enthesophyte at the superior patellar pole. Left knee: No acute fracture, dislocation, or knee joint effusion. Mild tricompartmental knee joint osteoarthritis with mild medial compartment joint space narrowing, subchondral sclerosis, small marginal osteophytes. Chondrocalcinosis at the medial and lateral compartments. No osseous lesion. XR/XR knee RT 4V IMPRESSION: 1.? No acute osseous injury identified at either knee. 2.? Small right knee joint effusion. 3.? Mild bilateral knee joint osteoarthritis. 4.? Chondrocalcinosis. ? CT scan - head: Attestation: I personally reviewed and interpreted this imaging study as follows: Radiologist's impression: FINDINGS: There is no evidence of acute intracranial hemorrhage or edematous territorial infarction. Hernandez-white matter differentiation is preserved. A few foci of hypoattenuation in the periventricular and deep white matter are consistent with mild microangiopathy. The ventricles are normal in morphology and size. No evidence for obstructive hydrocephalus. No abnormal mass effect or midline shift. No extra-axial fluid collections. No acute soft tissue or osseous abnormalities. The mastoid air cells and visualized paranasal sinuses are clear. ? CT/CT head/brain wo IV con IMPRESSION: 1.? No evidence of acute intracranial hemorrhage or edematous territorial infarction. 2.? Mild underlying microangiopathy. CT scan - chest: Attestation: I personally reviewed and interpreted this imaging study as follows: Radiologist's impression: FINDINGS: QUALITY OF STUDY/CONTRAST BOLUS: Moderate respiratory motion. Satisfactory contrast bolus. PULMONARY ARTERIES: There is a nonocclusive thrombus within the right lower and middle lobar pulmonary arteries partially extending into the segmental branches.? THORACIC AORTA: The thoracic aorta is of normal contour and caliber with moderate calcific atherosclerotic disease. No aneurysm or dissection. LUNG: Mosaic attenuation pattern of the upper lungs. Mild interlobular septal thickening in the lung apices. There are patchy irregular groundglass opacities predominantly scattered throughout the periphery of the lungs. No demonstrated dense consolidative process. No evidence of pleural effusion or pneumothorax. MEDIASTINUM: Normal heart size. No pericardial effusion. Moderately prominent right hilar/peribronchial lymphoid tissue. No mediastinal lymphadenopathy.? No evidence of septal bowing or right heart strain. Coronary artery calcifications: Present - mild. CHEST WALL/AXILLA: No axillary or internal mammary lymphadenopathy. OSSEOUS STRUCTURES: Mild left convex curvature of the thoracic spine. Mild to moderate multilevel degenerative spondyloarthropathy of the thoracic spine. No acute or suspicious osseous abnormality.? UPPER ABDOMEN: No demonstrated significant abnormalities of the visualized upper abdomen.? No reflux of contrast into the hepatic veins to suggest elevated right heart pressures. CT/CT angio chest PE protocol IMPRESSION: 1.? There is a nonocclusive pulmonary embolism within the right lower and middle lobar pulmonary arteries partially extending into the segmental branches. 2.? There is a mosaic attenuation pattern of the upper lungs with patchy irregular groundglass opacities predominantly scattered throughout the periphery of the lungs. ? Commonly reported imaging features of COVID-19 pneumonia are present. Other processes such as influenza pneumonia or organizing pneumonia can cause a similar imaging appearance, as can certain drug toxicities and connective tissue disorders. ? VTE: positive. ECG Data Attestation: I personally reviewed and interpreted this ECG as follows: ECG interpretation date: 03/12/22 ECG interpretation time: 21:41 Interpretation: Normal sinus rhythm with occasional PVCs with a rate of 76, normal NH, normal QT, right bundle branch block Discharge Plan Discharge Clinical Impression: Hypoxia, Pulmonary embolism, UTI (urinary tract infection), Elevated lactic acid level, Leukocytosis Patient Disposition: Admitted As Inpatient Discharge Date/Time: 03/13/22 23:56
[2022-03-12 22:38] LABS: Alanine Aminotransferase 19 U/L (0-31); Alkaline Phosphatase 102 U/L (39-117); Anion Gap 15 (12-20); Aspartate Amino Transferase 24 U/L (5-31); Bilirubin Total 0.5 mg/dL (0.0-1.0); Blood Urea Nitrogen 11 mg/dL (9-16); Calcium 8.9 mg/dL (8.4-10.2); Carbon Dioxide 28 mmol/L (22-29); Chloride 96 mmol/L (96-108); Creatinine Clr Calc Pharmacy 93.8; Estimated Glomerular Filt Rate > 60; Glucose Random 91 mg/dL (60-115); Potassium 3.8 mmol/L (3.3-5.1); Sodium 135 mmol/L (135-145); Total Protein 6.7 g/dL (6.5-8.0)
[2022-03-12 22:39] LABS: Troponin-I High Sensitivity < 3.5 ng/L (<3.5-17.0)
[2022-03-12] MEDS: Albuterol/Iprat 2.5/0.5MG 3 ML AMPUL.NEB INHALE (22:45)
[2022-03-12 22:46] VITALS: PULSE 80; RESP 18; O2SAT 92
[2022-03-12 22:52] LABS: Influenza A PCR NEGATIVE (Negative); Influenza B PCR NEGATIVE (Negative); Resp Syncy Virus RNA Qual PCR NEGATIVE (Negative); SARS COV2 PCR INHOUSE NEGATIVE (Negative)
[2022-03-12 23:39] LABS: INTERNATIONAL NORM RATIO 1.1 (0.9-1.1); Prothrombin Time 12.9 SEC (10.0-13.1)
[2022-03-12] MEDS: methylPREDNISolone Sod Succ 125 MG/2 ML VIAL IVPUSH (23:40)
[2022-03-12 23:41] LABS: D Dimer High Sensitivity 320 NG/ML
[2022-03-12 23:47] LABS: Lactic Acid 2.6 mmol/L (0.5-2.0)
[2022-03-12 23:54] LABS: B Type Natriuretic Peptide 15 pg/mL (<100)
[2022-03-13] VITALS (8 sets, daily range): BP systolic 94–141; BP diastolic 54–75; PULSE 65–92; RESP 16–20; TEMP 36.4–36.8; O2SAT 92–96
[2022-03-13] LABS: Magnesium 2.1 mg/dL (1.6-2.6)
[2022-03-13] MEDS: iohexoL 350 MG/ML 100 ML INFUS..BTL 65 ML IV (00:46)
[2022-03-13] MEDS: 0.9 % Sodium Chloride 1,000 ML 999 ML IV (00:48)
[2022-03-13 00:55] LABS: Appearance Urine Clear; Color Urine Yellow; Glucose Urine UA Negative (Negative); Leukocyte Esterase Urine Trace (Negative); Nitrite Urine Negative (Negative); UMIC TRIGGER UACC YES; Urine Blood Negative (Negative); Urine Ketones Negative (Negative); Urine Protein Negative (Neg-Trace)
[2022-03-13 01:02] LABS: Bacteria Urine None Seen (None Seen); Hyaline Casts Urine 0-2 /LPF (0-2); RBC Urine 0-2 /HPF (0-2); WBC Urine 0-5 /HPF (0-5)
[2022-03-13 01:29] LABS: Reflex Lactate? Lactic Acid Added
[2022-03-13 01:31] LABS: Partial Thromboplastin Time 30.4 SEC (26.0-36.4)
[2022-03-13] MEDS: Apixaban 5 MG TABLET PO (01:42)
[2022-03-13] MEDS: cefTRIAXone sodium 1 GM in 0.9 % Sodium Chloride 50 ML IV (02:15)
--- NOTE | 2022-03-13 03:15 | PC.NURSE ---
assumed care of pt at 0300, pt sleeping, rr even and unlabored, pt pending admission.
--- NOTE | 2022-03-13 05:53 | P.HPHOSP_ITS ---
History of Present Illness Date of Service: 03/13/22 Chief Complaint: SOB 61-year-old female with past medical history of hypertension, COPD, major depressive disorder, anxiety, presents the hospital with complaints of shortness of breath. Patient reports that her symptoms started about 2 days ago, she had COVID 2 weeks ago, she still has a cough, nonproductive, no chest pain, no abdominal pain, no nausea or vomiting, no diarrhea constipation, no urinary symptoms. No lower extremity edema. On arrival to the ED patient noted to have 85% O2 on room air, Labs are significant for WBC count of 11, hemoglobin of 12.2, hematocrit 36.9, labs otherwise significant for lactic of 2.6 that normalized after fluid UA shows trace leukocyte Estrace but asymptomatic Chest CT angiogram shows nonocclusive pulmonary emboli within the right lower as well as middle lobe were of pulmonary arteries extending into the segmental branches, there is also attenuation pattern of the upper lungs with patchy irregular ground-glass opacities Patient started on anticoagulation and will be admitted for further management Review of Systems Review of Systems: Yes all other systems are reviewed and are negative [facility]LY [facility] Medical History Acute anxiety Depression Ganglion cyst GERD (gastroesophageal reflux disease) Insomnia Obese Otitis externa RUQ abdominal pain Tubular adenoma of colon Family History Father Alzheimer disease Mother Stroke Brother Esophageal cancer Other Mental problem Substance abuse Surgical History History of esophagogastroduodenoscopy (EGD) Hx of colonoscopy Previous back surgery Social History Household Members: Friend(s) Household Members Other:: 1 Housing: Apartment Do you presently have visiting nurse or other home services: No Alcohol intake: former Patient Tobacco Use Status: Current everyday Tobacco user Tobacco use type: Cigarette Cigarette Packs Per Day: 1 Cigarettes Per Day: 20.0 Years Smoked: 40 e-Cigarette/Vaping Use: Currently Using Second Hand Smoke Exposure: Yes Substance Use Type: Heroin Advance Directives: No Advance Directives Information Provided: No service: No Current occupational status: employed 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[employer], 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 Sexual orientation: Straight/Heterosexual Cognitive needs: No Hearing needs: No Vision needs: No Meds Allergies Allergy/AdvReac Type Severity Reaction Status Date / Time Penicillins [PENICILLINS] Allergy Intermediate RASH Verified 02/10/22 14:00 (CHILDHOOD ALLERGY) Active Medications: Current Medications Acetaminophen (Acetaminophen 325 Mg Tablet) 650 mg PO Q6H PRN PRN Reason: Pain, Mild (Pain Scale 1-3) Azithromycin (Azithromycin 500 Mg Tablet) 500 mg PO Q24H DANK Docusate Sodium (Docusate Sodium 100 Mg Capsule) 100 mg PO DAILY PRN PRN Reason: Constipation Enoxaparin Sodium (Enoxaparin Sodium 100 Mg/Ml Syringe) 90 mg 1 mg/kg (90 mg) SUBCUT Q12H DANK Ceftriaxone Sodium 1 gm/ (Sodium Chloride) 50 mls @ 100 mls/hr IV Q24H DANK Ondansetron HCl (Ondansetron Hcl 4 Mg/2 Ml Vial) 4 mg IVPUSH Q8H PRN PRN Reason: Nausea and Vomiting Pharmacy Consult (Consult Rx Perform Med Rec) 1 each MISCELLANE ONCE PRN PRN Reason: Consult order Home Medications Medication Instructions Recorded Confirmed Last Taken Type naloxone 4 mg/actuation nasal spray spray intranasal 12/19/21 02/10/22 Unknown History multivitamin 1 tab PO DAILY 02/10/22 03/13/22 Unknown History vitamin B complex-vitamin C-folic 1 tab PO DAILY 02/10/22 02/10/22 Unknown History acid 800 mcg chewable tablet buprenorphine 8 mg-naloxone 2 mg 1 strip sublingual DAILY 03/13/22 03/13/22 Unknown History sublingual film (Suboxone) Physical Exam Vital Signs and Narrative: Vital Signs: Last Vital Signs Temp 98.0 F 03/13/22 01:01 Pulse 73 03/13/22 01:01 Resp 16 03/13/22 01:01 BP 133/70 03/13/22 01:01 Pulse Ox 95 03/13/22 01:01 O2 Del Method 03/13/22 01:01 O2 Flow Rate 2 03/13/22 01:01 BMI result Body Mass Index 32.5 Const: General: cooperative and no acute distress Orientation/consciousnes s: patient oriented x3 Eyes: General: appearance normal, both eyes and all related structures Pupils: Equal, round and reactive pupils present Resp: Other: Rhonchi bilaterally Effort & Inspection: normal respiratory effort Cardio: Rate: regular rate Rhythm: regular rhythm GI: Palpation (GI): Soft to palpation Auscultation: normal bowel sounds Skin: General skin exam: no rashes or lesions noted Neuro: General: patient oriented x3 Cranial nerves: Yes Equal, round and reactive pupils present Cognition (Neuro): normal cognition Extrem: General: Yes normal to inspection and Yes no pedal edema Results Labs CBC and Chem 7: 03/12/22 21:51 03/12/22 21:51 Labs: Laboratory Results - last 24 hr 03/12/22 03/12/22 03/12/22 21:51 21:51 21:51 MCV 87.4 MCH 28.9 MCHC 33.1 RDW 14.6 Plt Count 219 MPV 10.1 Immature Gran % (Auto) 0.3 Neut % (Auto) 64.3 Lymph % (Auto) 26.3 [place] % (Auto) 6.1 Eos % (Auto) 2.7 Baso % (Auto) 0.3 Lymph # (Auto) 2.9 [place] # (Auto) 0.7 Eos # (Auto) 0.3 Baso # (Auto) 0.0 Abs Immat Gran (auto) 0.03 Absolute Neuts (auto) 7.1 Absolute Nucleated RBC 0.000 Nucleated RBC % (auto) 0.0 PT INR APTT D-Dimer High Sensitivty Anion Gap 15 Estim Creat Clear Calc 93.8 Estimated GFR > 60 Random Glucose 91 Lactic Acid Lactic Acid F/U @ 2Hr Calcium 8.9 Magnesium Total Bilirubin 0.5 AST 24 ALT 19 Alkaline Phosphatase 102 Troponin I High Sens < 3.5 B-Natriuretic Peptide Total Protein 6.7 Albumin 4.0 Urine Color Urine Appearance Urine pH Ur Specific [place] Urine Protein Urine Glucose (UA) Urine Ketones Urine Blood Urine Nitrite Ur Leukocyte Esterase Urine RBC Urine WBC Ur Squamous Epith Cells Urine Bacteria Hyaline Casts Influenza Type A (PCR) Influenza Type B (PCR) RSV RNA Qual (PCR) SARS-CoV-2 RNA (RT-PCR) 03/12/22 03/12/22 03/12/22 21:51 23:17 23:17 MCV MCH MCHC RDW Plt Count MPV Immature Gran % (Auto) Neut % (Auto) Lymph % (Auto) [place] % (Auto) Eos % (Auto) Baso % (Auto) Lymph # (Auto) [place] # (Auto) Eos # (Auto) Baso # (Auto) Abs Immat Gran (auto) Absolute Neuts (auto) Absolute Nucleated RBC Nucleated RBC % (auto) PT INR APTT D-Dimer High Sensitivty Anion Gap Estim Creat Clear Calc Estimated GFR Random Glucose Lactic Acid 2.6 H* Lactic Acid F/U @ 2Hr Calcium Magnesium 2.1 Total Bilirubin AST ALT Alkaline Phosphatase Troponin I High Sens B-Natriuretic Peptide Total Protein Albumin Urine Color Urine Appearance Urine pH Ur Specific [place] Urine Protein Urine Glucose (UA) Urine Ketones Urine Blood Urine Nitrite Ur Leukocyte Esterase Urine RBC Urine WBC Ur Squamous Epith Cells Urine Bacteria Hyaline Casts Influenza Type A (PCR) NEGATIVE Influenza Type B (PCR) NEGATIVE RSV RNA Qual (PCR) NEGATIVE SARS-CoV-2 RNA (RT-PCR) NEGATIVE 03/12/22 03/12/22 03/13/22 23:17 23:17 00:49 MCV MCH MCHC RDW Plt Count MPV Immature Gran % (Auto) Neut % (Auto) Lymph % (Auto) [place] % (Auto) Eos % (Auto) Baso % (Auto) Lymph # (Auto) [place] # (Auto) Eos # (Auto) Baso # (Auto) Abs Immat Gran (auto) Absolute Neuts (auto) Absolute Nucleated RBC Nucleated RBC % (auto) PT 12.9 INR 1.1 APTT 30.4 D-Dimer High Sensitivty 320 Anion Gap Estim Creat Clear Calc Estimated GFR Random Glucose Lactic Acid Lactic Acid F/U @ 2Hr Calcium Magnesium Total Bilirubin AST ALT Alkaline Phosphatase Troponin I High Sens B-Natriuretic Peptide 15 Total Protein Albumin Urine Color Yellow Urine Appearance Clear Urine pH 7.0 Ur Specific [place] 1.010 Urine Protein Negative Urine Glucose (UA) Negative Urine Ketones Negative Urine Blood Negative Urine Nitrite Negative Ur Leukocyte Esterase Trace H Urine RBC 0-2 Urine WBC 0-5 Ur Squamous Epith Cells 3-5 Urine Bacteria None Seen Hyaline Casts 0-2 Influenza Type A (PCR) Influenza Type B (PCR) RSV RNA Qual (PCR) SARS-CoV-2 RNA (RT-PCR) 03/13/22 02:00 MCV MCH MCHC RDW Plt Count MPV Immature Gran % (Auto) Neut % (Auto) Lymph % (Auto) [place] % (Auto) Eos % (Auto) Baso % (Auto) Lymph # (Auto) [place] # (Auto) Eos # (Auto) Baso # (Auto) Abs Immat Gran (auto) Absolute Neuts (auto) Absolute Nucleated RBC Nucleated RBC % (auto) PT INR APTT D-Dimer High Sensitivty Anion Gap Estim Creat Clear Calc Estimated GFR Random Glucose Lactic Acid Lactic Acid F/U @ 2Hr 1.0 Calcium Magnesium Total Bilirubin AST ALT Alkaline Phosphatase Troponin I High Sens B-Natriuretic Peptide Total Protein Albumin Urine Color Urine Appearance Urine pH Ur Specific [place] Urine Protein Urine Glucose (UA) Urine Ketones Urine Blood Urine Nitrite Ur Leukocyte Esterase Urine RBC Urine WBC Ur Squamous Epith Cells Urine Bacteria Hyaline Casts Influenza Type A (PCR) Influenza Type B (PCR) RSV RNA Qual (PCR) SARS-CoV-2 RNA (RT-PCR) Imaging Radiologist's Impressions: Impressions Chest X-Ray 03/12/22 22:11 IMPRESSION: 1. No acute pulmonary process. 2. Mildly increased reticular interstitial markings bilaterally, perhaps slightly improved when compared to prior. Findings are nonspecific and may be due to chronic interstitial change or small airways disease. Knee X-Ray 03/12/22 22:40 IMPRESSION: 1. No acute osseous injury identified at either knee. 2. Small right knee joint effusion. 3. Mild bilateral knee joint osteoarthritis. 4. Chondrocalcinosis. Knee X-Ray 03/12/22 22:40 IMPRESSION: 1. No acute osseous injury identified at either knee. 2. Small right knee joint effusion. 3. Mild bilateral knee joint osteoarthritis. 4. Chondrocalcinosis. Lumbar Spine X-Ray 03/12/22 22:40 IMPRESSION: 1. No subluxation or acute fracture of the lumbar spine. 2. No acute displaced fracture of the sacrum or coccyx. 3. Status post dorsal decompression and interbody fusion at L4-L5. 4. Similar appearance of multilevel lumbar spondylosis. Sacrum and Coccyx X-Ray 03/12/22 22:40 IMPRESSION: 1. No subluxation or acute fracture of the lumbar spine. 2. No acute displaced fracture of the sacrum or coccyx. 3. Status post dorsal decompression and interbody fusion at L4-L5. 4. Similar appearance of multilevel lumbar spondylosis. Chest CTA 03/13/22 00:30 IMPRESSION: 1. There is a nonocclusive pulmonary embolism within the right lower and middle lobar pulmonary arteries partially extending into the segmental branches. 2. There is a mosaic attenuation pattern of the upper lungs with patchy irregular groundglass opacities predominantly scattered throughout the periphery of the lungs. Commonly reported imaging features of COVID-19 pneumonia are present. Other processes such as influenza pneumonia or organizing pneumonia can cause a similar imaging appearance, as can certain drug toxicities and connective tissue disorders. VTE: positive. This critical result was discussed with AGNIESZKA Carrera at 01:22 on 03/13/2022 and it was ascertained that the content and urgency of the report was understood at the time of direct communication. Head CT 03/13/22 00:30 IMPRESSION: 1. No evidence of acute intracranial hemorrhage or edematous territorial infarction. 2. Mild underlying microangiopathy. Assessment and Plan (1) Acute respiratory failure with hypoxia: Status: Acute (2) Pulmonary embolism: Status: Acute (3) Pneumonia due to COVID-19 virus: Status: Acute (4) COPD with acute exacerbation: Status: Acute Plan 61-year-old female with past medical history of hypertension, COPD presents to the hospital with complaints of shortness of breath found to be hypoxic # acute hypoxic respiratory failure - likely multifactorial secondary to PE as well as pneumonia - continue oxygen supplement - titrate oxygen as tolerated # pulmonary emboli - in the setting of recent COVID infection - does not appear to have any other risk factors - will treat with Lovenox - monitor respiratory status # COPD exacerbation - has a cough, dyspnea and evidence of pneumonia - will be treated with Decadron for hypoxia related to COVID, DuoNeb - monitor respiratory status # pneumonia due to COVID-19 - was tested positive 2 weeks ago, remains to have pulmonary infiltrates - will treat with IV antibiotics given the persistent symptoms - follow cultures # hypertension - stable - resume home meds once reconciled # depression anxiety - resume home medications # history of opioid abuse - resume Suboxone DVT prophylaxis: Lovenox Pt will require a minimum 2 night hospital stay for requiring oxygen, as well as IV antibiotics for COPD exacerbation/pneumonia Quality Stroke Does the patient have a stroke diagnosis?: No VTE Prior VTE?: No VTE Risk Level:: Medical - moderate - high VTE Device Contraindication: Treatment Not Indicated VTE Drug Contraindication: N/A - Med Ordered
[2022-03-13] MEDS: Azithromycin 500 MG TABLET PO (06:02)
--- NOTE | 2022-03-13 06:07 | PC.NURSE ---
pt drowsy, but rousable, medicated per provider order, vss - hypertensive. pt pending bed assignment. no new orders at this time.
[2022-03-13 06:59] LABS: MANUAL DIFF FLAG NO
[2022-03-13 07:03] LABS: Basophils Percent Auto 0.3 % (0-2); Eosinophils Percent Auto 0.1 % (0-4); Hematocrit 36.9 % (37.0-47.0); Hemoglobin 12.2 g/dl (12.0-16.0); Imm Gran Abs Auto 0.05 X10*3/uL (0.00-0.03); Imm Gran Pct Auto 0.6 % (0.0-0.4); Lymphocytes Absolute Auto 1.1 X10*3/uL (1.2-4.9); Lymphocytes Percent Auto 13.6 % (20-40); Mean Corpuscular HGB Conc 33.1 g/dl (31.0-35.0); Mean Corpuscular Hemoglobin 28.9 pg (27.0-33.0); Mean Corpuscular Volume 87.4 fL (80.0-98.0); Mean Platelet Volume 10.2 fL (9.4-12.3); Monocytes Absolute Auto 0.1 X10*3/uL (0.1-1.2); Monocytes Percent Auto 1.4 % (2-11); Neutrophils Absolute Auto 6.5 x10*3/uL (2.0-8.3); Platelet Count 187 X10*3/uL (160-400); Red Blood Count 4.22 X10*6/uL (4.20-5.50); Red Cell Distribution Width 14.6 % (11.0-16.0); White Blood Count 7.8 X10*3/uL (4.8-10.8)
[2022-03-13 07:07] LABS: INTERNATIONAL NORM RATIO 1.1 (0.9-1.1); Prothrombin Time 12.5 SEC (10.0-13.1)
[2022-03-13 07:10] LABS: Partial Thromboplastin Time 34.7 SEC (26.0-36.4)
[2022-03-13 07:17] LABS: Anion Gap 19 (12-20); Blood Urea Nitrogen 9 mg/dL (9-16); Calcium 8.7 mg/dL (8.4-10.2); Carbon Dioxide 24 mmol/L (22-29); Chloride 102 mmol/L (96-108); Creatinine Clr Calc Pharmacy 92.5; Estimated Glomerular Filt Rate > 60; Glucose Random 201 mg/dL (60-115); Potassium 3.7 mmol/L (3.3-5.1); Sodium 141 mmol/L (135-145)
[2022-03-13] MEDS: Albuterol/Iprat 2.5/0.5MG 3 ML AMPUL.NEB INHALE ×2 (07:37→20:42)
--- NOTE | 2022-03-13 08:31 | PHA.MEDREC ---
Pharmacy Consult ? Medication Reconciliation Pharmacy has reviewed the medication reconciliation completed by Angelina. There are no remarkable issues for provider's attention. Hailey Santiago, FuentesD
[2022-03-13] MEDS: dexAMETHasone sod phosphate 4 MG/ML VIAL 6 MG IVPUSH (08:53)
[2022-03-13] MEDS: Gabapentin 400 MG CAPSULE PO ×3 (09:50→21:25)
[2022-03-13] MEDS: Multivitamin TABLET 1 TAB PO (09:51)
[2022-03-13] MEDS: hydroCHLOROthiazide 12.5 MG TABLET PO (09:51)
[2022-03-13 09:52] LABS: C Reactive Protein 5.34 mg/dL (< or = 0.50); Lactate Dehydrogenase 247 U/L (122-220)
[2022-03-13] MEDS: FLUoxetine HCl 20 MG CAPSULE 60 MG PO (09:54)
[2022-03-13] MEDS: clonazePAM 1 MG TABLET PO (09:55)
[2022-03-13] MEDS: Buprenorphine/Naloxone 8/2 mg FILM 1 FILM SUBLINGUAL (09:56)
[2022-03-13] MEDS: cloNIDine HCL 0.2 MG TABLET PO ×2 (09:56→21:17)
[2022-03-13 10:15] LABS: Ferritin 103 ng/mL (10-250)
[2022-03-13 10:20] LABS: Procalcitonin < 0.02 ng/mL
[2022-03-13] MEDS: Enoxaparin Sodium 100 MG/ML SYRINGE 90 MG SUBCUT (14:28)
--- NOTE | 2022-03-13 15:25 | PM.EVENT ---
Event Note Date of Service: 03/13/22 Event Note: Day hospitalist update S: dyspnea/cough improving of note, father had DVT in his 40s no leg swelling O: Temp Pulse Resp BP Pulse Ox O2 Del Method O2 Flow Rate 98.0 F 92 18 115/63 96 2 03/13/22 01:01 03/13/22 09:58 03/13/22 09:58 03/13/22 09:58 03/13/22 09:58 03/13/22 06:05 03/13/22 06:05 Gen: in no acute distress HEENT: sclera anicteric, moist mucus membranes Neck: supple Lungs: scattered exp wheezes Heart: regular rate and rhythm, no murmurs Abd: soft, non-tender, non-distended Ext: no edema Skin: warm/well-perfused Neuro: alert and oriented x3, no focal findings Psych: appropriate affect labs- CRP 5.34 A/P: hospital day#1 61yo F with COPD, HTN, OUD, recent Covid-19 infection [2 wk ago] presenting with dyspnea, found to be hypoxic and diagnosed with PE # Acute PE - Likely triggered by Covid-19 but FHx raises question of inherited thrombophilia. Will send workup with caution interpreting the non-genetic studies due to ongoing anticoagulation. Continue LMWH 1 mg/kg q12h with plan to transition to apixaban. # Hypoxic resp failure, acute - Suppl O2, wean as tolerated # COPD exac # Covid-19 PNA - No longer viremic but has classic CT findings of GGO. Will give dexamethasone d#06/02 - bronchodilators - PCT low, will dc ABX # HTN - continue clonidine + HCTZ # mood disorder - continue clonazepam + clonidine + gabapentin + hydroxyzine # OUD - continue Suboxone # VTE ppx: on therapeutic LMWH In my clinical judgment, the patient requires continued hospitalization for the following reasons: hypoxia
[2022-03-13] MEDS: Acetaminophen 325 MG TABLET 650 MG PO (16:35)
--- NOTE | 2022-03-13 16:48 | PC.NURSE ---
THIS PCT ASSUMED CARE OF PATIENT AT 1500 ,PATIENT VS TAKEN ,BEDSIDE COMMODE EMPTY ,FRESH PITCHER WATER GIVEN ,I CALLED AND ORDER PATIENT [employer] FOR [facility] I OFFER PATIENT A HOSPITAL BED ,PATIENT WAS VERY HAPPY WITH THE SERVICE I PROVIDED .
[2022-03-13] MEDS: hydrOXYzine HCL 25 MG TABLET PO (21:17)
--- NOTE | 2022-03-13 21:20 | PC.NURSE ---
Pt is on the telemetry and it shows NSR, pt night meds were administered as order. pt V/S are normal. will continue to monitor.
--- NOTE | 2022-03-13 23:50 | PC.NURSE ---
RN gave report to nurse Barger in [facility].
[2022-03-14] VITALS (8 sets, daily range): BP systolic 111–139; BP diastolic 57–71; PULSE 59–82; RESP 14–20; TEMP 36.1–36.8; O2SAT 93–98; BMI 33.8
[2022-03-14] MEDS: Acetaminophen 325 MG TABLET 650 MG PO ×2 (00:19→10:32)
[2022-03-14] MEDS: Enoxaparin Sodium 100 MG/ML SYRINGE 90 MG SUBCUT (00:28)
[2022-03-14] MEDS: Omeprazole 40 MG CAPSULE.DR PO (06:37)
[2022-03-14 07:16] LABS: Hematocrit 36.6 % (37.0-47.0); Hemoglobin 12.1 g/dl (12.0-16.0); Mean Corpuscular HGB Conc 33.1 g/dl (31.0-35.0); Mean Corpuscular Hemoglobin 28.9 pg (27.0-33.0); Mean Corpuscular Volume 87.6 fL (80.0-98.0); Mean Platelet Volume 10.7 fL (9.4-12.3); Platelet Count 182 X10*3/uL (160-400); Red Blood Count 4.18 X10*6/uL (4.20-5.50); Red Cell Distribution Width 14.5 % (11.0-16.0); White Blood Count 16.7 X10*3/uL (4.8-10.8)
[2022-03-14 07:21] LABS: INTERNATIONAL NORM RATIO 1.1 (0.9-1.1); Prothrombin Time 12.6 SEC (10.0-13.1)
--- NOTE | 2022-03-14 09:01 | MHC.CM.PN ---
Female 61 DX PE Hypoxic PNA She lives with S.O. She is independent with all functional mobility. She has been vaccinated x 3. A HCP has been documented and placed on the chart. DP home selfcare family transport.
--- NOTE | 2022-03-14 09:49 | HO.PM.IMPN ---
Subjective Subjective Date of Service: 03/14/22 Interval History: c/o cough/dyspnea/wheeze no fever Review of Systems Review of Systems: Yes all other systems are reviewed and are negative Physical Exam Vital Signs: Vital Signs: Last Vital Signs Temp 97.1 F 03/14/22 08:00 Pulse 59 03/14/22 08:00 Resp 20 03/14/22 08:00 BP 139/67 03/14/22 08:00 Pulse Ox 96 03/14/22 08:00 O2 Del Method 03/14/22 08:00 O2 Flow Rate 1.5 03/14/22 08:00 BMI result Body Mass Index 33.8 Gen: in no acute distress HEENT: sclera anicteric, moist mucus membranes Neck: supple Lungs: expiratory wheezing Heart: regular rate and rhythm, no murmurs Abd: soft, non-tender, non-distended Ext: no edema Skin: warm/well-perfused Neuro: alert and oriented x3, no focal findings Psych: appropriate affect Objective Data Active Medications Acetaminophen (Acetaminophen 325 Mg Tablet) 650 mg PO Q6H PRN PRN Reason: Pain, Mild (Pain Scale 1-3) Last Admin: 03/14/22 00:19 Dose: 650 mg Documented By: PRAKASH Albuterol/Ipratropium (Albuterol/Iprat 2.5/0.5mg 3 Ml Ampul.Neb) 3 ml INHALE RQ4H PRN PRN Reason: Shortness of Breath/Wheezing Albuterol/Ipratropium (Albuterol/Iprat 2.5/0.5mg 3 Ml Ampul.Neb) 3 ml INHALE RQ4H WHILE AWAKE [facility] Last Admin: 03/14/22 08:08 Dose: Not Given Documented By: CANELO Non-Admin Reason: Patient Refused Apixaban (Apixaban 5 Mg Tablet) 10 mg PO BID [facility] Stop: 03/20/22 21:01 Buprenorphine/Naloxone (Buprenorphine/Naloxone 8/2 Mg Film) 1 film SUBLINGUAL DAILY [facility] Last Admin: 03/13/22 09:56 Dose: 1 film Documented By: SEUN Clonazepam (Clonazepam 1 Mg Tablet) 1 mg PO DAILY [facility] Last Admin: 03/13/22 09:55 Dose: 1 mg Documented By: SEUN Clonidine HCl (Clonidine Hcl 0.2 Mg Tablet) 0.2 mg PO BID [facility]; Protocol Last Admin: 03/13/22 21:17 Dose: 0.2 mg Documented By: HITESH Dexamethasone Sodium Phosphate (Dexamethasone Sod Phosphate 4 Mg/Ml Vial) 6 mg IVPUSH DAILY [facility] Last Admin: 03/13/22 08:53 Dose: 6 mg Documented By: SEUN Docusate Sodium (Docusate Sodium 100 Mg Capsule) 100 mg PO DAILY PRN PRN Reason: Constipation Fluoxetine HCl (Fluoxetine Hcl 20 Mg Capsule) 60 mg PO DAILY [facility] Last Admin: 03/13/22 09:54 Dose: 60 mg Documented By: SEUN Gabapentin (Gabapentin 400 Mg Capsule) 400 mg PO TID [facility] Last Admin: 03/13/22 21:25 Dose: 400 mg Documented By: HITESH Hydrochlorothiazide (Hydrochlorothiazide 12.5 Mg Tablet) 12.5 mg PO DAILY [facility]; Protocol Last Admin: 03/13/22 09:51 Dose: 12.5 mg Documented By: SEUN Hydroxyzine HCl (Hydroxyzine Hcl 25 Mg Tablet) 25 mg PO BEDTIME [facility] Last Admin: 03/13/22 21:17 Dose: 25 mg Documented By: HITESH Multivitamins/Vitamin C (Multivitamin Tablet) 1 tab PO DAILY [facility] Last Admin: 03/13/22 09:51 Dose: 1 tab Documented By: SEUN Nicotine Polacrilex (Nicotine Polacrilex Lozenge 4 Mg Lozenge) 4 mg BUCCAL Q2H PRN PRN Reason: nicotine cravings Non-Formulary Medication (Umeclidinium-Vilanterol [Anoro Ellipta]) 1 inhalation INHALE DAILY [facility] Omeprazole (Omeprazole 40 Mg Capsule.Dr) 40 mg PO DAILY@0630 [facility] Last Admin: 03/14/22 06:37 Dose: 40 mg Documented By: PRAKASH Ondansetron HCl (Ondansetron Hcl 4 Mg/2 Ml Vial) 4 mg IVPUSH Q8H PRN PRN Reason: Nausea and Vomiting Pharmacy Consult (Consult Rx Perform Med Rec) 1 each MISCELLANE ONCE PRN PRN Reason: Consult order Trazodone HCl (Trazodone Hcl 50 Mg Tablet) 50 mg PO BEDTIME PRN PRN Reason: for insomnia Labs CBC & Chem 7: 03/14/22 06:35 03/13/22 06:43 Labs: Laboratory Results - last 24 hr 03/13/22 03/13/22 03/14/22 06:43 06:43 06:35 MCV MCH MCHC RDW Plt Count MPV Absolute Nucleated RBC Nucleated RBC % (auto) PT 12.6 INR 1.1 Ferritin 103 Lactate Dehydrogenase 247 H C-Reactive Protein 5.34 H Procalcitonin < 0.02 03/14/22 06:35 MCV 87.6 MCH 28.9 MCHC 33.1 RDW 14.5 Plt Count 182 MPV 10.7 Absolute Nucleated RBC 0.000 Nucleated RBC % (auto) 0.0 PT INR Ferritin Lactate Dehydrogenase C-Reactive Protein Procalcitonin Microbiology Microbiology Results: Microbiology 03/12/22 23:16 Blood Culture - Preliminary Blood - Venous No growth after 24 hours. 03/12/22 23:17 Blood Culture - Preliminary Blood - Venous No growth after 24 hours. Assessment and Plan (1) Pneumonia due to COVID-19 virus: Status: Acute Plan day#2 61yo F with COPD, HTN, OUD, recent Covid-19 infection [2 wk ago] presenting with dyspnea, found to be hypoxic and diagnosed with PE # Acute PE - Likely triggered by Covid-19 but FHx raises question of inherited thrombophilia.? Sent hypercoagulability workup with caution interpreting the non-genetic studies due to ongoing anticoagulation.? Will transition from enoxaparin to apixaban today, 10 mg q12h x7d, then 5 mg q12h; should f/u with Hematology as outpt # Hypoxic resp failure, acute - Suppl O2, wean as tolerated. Still requiring 1.5L via NC. # COPD exac # Covid-19 PNA - No longer viremic but has classic CT findings of ground-glass opacity. On dexamethasone d#07/03. Monitor CRP. - Nebulized bronchodilators - PCT low, dc'ed ceftriaxone + azithromycin # HTN - continue clonidine + HCTZ # mood disorder - continue clonazepam + clonidine + gabapentin + hydroxyzine # OUD - continue Suboxone # VTE ppx: apixaban In my clinical judgment, the patient requires continued hospitalization for the following reasons: hypoxia Quality Stroke Does the patient have a stroke diagnosis?: No VTE Prior VTE?: No VTE Risk Level:: Medical - moderate - high VTE Device Contraindication: Treatment Not Indicated VTE Drug Contraindication: N/A - Med Ordered
[2022-03-14] MEDS: dexAMETHasone sod phosphate 4 MG/ML VIAL 6 MG IVPUSH (10:11)
[2022-03-14] MEDS: FLUoxetine HCl 20 MG CAPSULE 60 MG PO (10:12)
[2022-03-14] MEDS: clonazePAM 1 MG TABLET PO ×2 (10:12→20:30)
[2022-03-14] MEDS: Gabapentin 400 MG CAPSULE PO ×3 (10:12→20:30)
[2022-03-14] MEDS: Apixaban 5 MG TABLET 10 MG PO ×2 (10:13→20:30)
[2022-03-14] MEDS: hydroCHLOROthiazide 12.5 MG TABLET PO (10:13)
[2022-03-14] MEDS: Multivitamin TABLET 1 TAB PO (10:14)
[2022-03-14] MEDS: cloNIDine HCL 0.2 MG TABLET PO ×2 (10:14→20:30)
[2022-03-14] MEDS: Buprenorphine/Naloxone 8/2 mg FILM 1 FILM SUBLINGUAL (10:20)
[2022-03-14] MEDS: Albuterol/Iprat 2.5/0.5MG 3 ML AMPUL.NEB INHALE ×2 (11:32→20:23)
[2022-03-14] MEDS: Nicotine 14 MG PATCH.TD24 TRANSDERMA (14:34)
[2022-03-14] MEDS: traZODone HCL 50 MG TABLET PO (20:30)
[2022-03-14] MEDS: hydrOXYzine HCL 25 MG TABLET PO (20:31)
[2022-03-15] VITALS (9 sets, daily range): BP systolic 97–150; BP diastolic 53–79; PULSE 61–87; RESP 16–20; TEMP 36–37.1; O2SAT 92–99; BMI 34.9
[2022-03-15] MEDS: Omeprazole 40 MG CAPSULE.DR PO (06:37)
[2022-03-15 07:18] LABS: Hematocrit 36.7 % (37.0-47.0); Mean Corpuscular HGB Conc 32.7 g/dl (31.0-35.0); Mean Corpuscular Hemoglobin 28.8 pg (27.0-33.0); Mean Corpuscular Volume 88.2 fL (80.0-98.0); Mean Platelet Volume 10.2 fL (9.4-12.3); Platelet Count 202 X10*3/uL (160-400); Red Blood Count 4.16 X10*6/uL (4.20-5.50); White Blood Count 13.2 X10*3/uL (4.8-10.8)
[2022-03-15 07:34] LABS: C Reactive Protein 1.91 mg/dL (< or = 0.50)
[2022-03-15] MEDS: Albuterol/Iprat 2.5/0.5MG 3 ML AMPUL.NEB INHALE ×3 (07:44→15:18)
[2022-03-15] MEDS: Nicotine 14 MG PATCH.TD24 TRANSDERMA (09:43)
[2022-03-15] MEDS: clonazePAM 1 MG TABLET PO ×2 (09:44→22:02)
[2022-03-15] MEDS: Apixaban 5 MG TABLET 10 MG PO ×2 (09:44→21:56)
[2022-03-15] MEDS: hydroCHLOROthiazide 12.5 MG TABLET PO (09:44)
[2022-03-15] MEDS: FLUoxetine HCl 20 MG CAPSULE 60 MG PO (09:44)
[2022-03-15] MEDS: Gabapentin 400 MG CAPSULE PO ×3 (09:44→21:57)
[2022-03-15] MEDS: Multivitamin TABLET 1 TAB PO (09:45)
[2022-03-15] MEDS: cloNIDine HCL 0.2 MG TABLET PO ×2 (09:45→21:57)
[2022-03-15] MEDS: Buprenorphine/Naloxone 8/2 mg FILM 1 FILM SUBLINGUAL (09:45)
[2022-03-15] MEDS: dexAMETHasone sod phosphate 4 MG/ML VIAL 6 MG IVPUSH (09:45)
--- NOTE | 2022-03-15 16:16 | HO.PM.IMPN ---
Subjective Subjective Date of Service: 03/15/22 Interval History: Continues with productive cough. Notes little improvement since admission Review of Systems Admits to shortness of breath with minimal exertion Denies chest pain Denies nausea vomiting diarrhea Denies fever chills Physical Exam Vital Signs: Vital Signs: Last Vital Signs Temp 97.6 F 03/15/22 11:19 Pulse 84 03/15/22 15:19 Resp 16 03/15/22 15:19 BP 118/65 03/15/22 11:19 Pulse Ox 97 03/15/22 11:19 O2 Del Method 03/15/22 11:19 O2 Flow Rate 2 03/15/22 11:19 BMI result Body Mass Index 34.9 Const: Other: Awake alert able speak in full sentences Resp: Other: Diminished bilateral bases with dense expiratory wheezes throughout Cardio: Other: No S4; positive S1-S2; no S3 murmurs or gallops GI: Other: Soft nontender nondistended normoactive bowel sounds Extrem: Other: No edema bilaterally Objective Data Active Medications Acetaminophen (Acetaminophen 325 Mg Tablet) 650 mg PO Q6H PRN PRN Reason: Pain, Mild (Pain Scale 1-3) Last Admin: 03/14/22 10:32 Dose: 650 mg Documented By: LORI Albuterol/Ipratropium (Albuterol/Iprat 2.5/0.5mg 3 Ml Ampul.Neb) 3 ml INHALE RQ4H PRN PRN Reason: Shortness of Breath/Wheezing Albuterol/Ipratropium (Albuterol/Iprat 2.5/0.5mg 3 Ml Ampul.Neb) 3 ml INHALE RQ4H WHILE AWAKE [facility] Last Admin: 03/15/22 15:18 Dose: 3 ml Documented By: CANELO Apixaban (Apixaban 5 Mg Tablet) 10 mg PO BID [facility] Stop: 03/20/22 21:01 Last Admin: 03/15/22 09:44 Dose: 10 mg Documented By: MANNY Buprenorphine/Naloxone (Buprenorphine/Naloxone 8/2 Mg Film) 1 film SUBLINGUAL DAILY [facility] Last Admin: 03/15/22 09:45 Dose: 1 film Documented By: MANNY Clonazepam (Clonazepam 1 Mg Tablet) 1 mg PO Q12H PRN PRN Reason: anxiety Last Admin: 03/15/22 09:44 Dose: 1 mg Documented By: MANNY Clonidine HCl (Clonidine Hcl 0.2 Mg Tablet) 0.2 mg PO BID [facility]; Protocol Last Admin: 03/15/22 09:45 Dose: 0.2 mg Documented By: MANNY Docusate Sodium (Docusate Sodium 100 Mg Capsule) 100 mg PO DAILY PRN PRN Reason: Constipation Fluoxetine HCl (Fluoxetine Hcl 20 Mg Capsule) 60 mg PO DAILY [facility] Last Admin: 03/15/22 09:44 Dose: 60 mg Documented By: MANNY Gabapentin (Gabapentin 400 Mg Capsule) 400 mg PO TID [facility] Last Admin: 03/15/22 13:57 Dose: 400 mg Documented By: MANNY Guaifenesin/Codeine Phosphate (Guaifen/Codeine Sf 200/20/10ml 10 Ml Liquid) 10 ml PO Q4H PRN PRN Reason: Cough Hydrochlorothiazide (Hydrochlorothiazide 12.5 Mg Tablet) 12.5 mg PO DAILY [facility]; Protocol Last Admin: 03/15/22 09:44 Dose: 12.5 mg Documented By: MANNY Hydroxyzine HCl (Hydroxyzine Hcl 25 Mg Tablet) 25 mg PO BEDTIME [facility] Last Admin: 03/14/22 20:31 Dose: 25 mg Documented By: RITCHIE Multivitamins/Vitamin C (Multivitamin Tablet) 1 tab PO DAILY [facility] Last Admin: 03/15/22 09:45 Dose: 1 tab Documented By: MANNY Nicotine (Nicotine 14 Mg Patch.Td24) 14 mg TRANSDERMA DAILY [facility] Last Admin: 03/15/22 09:43 Dose: 14 mg Documented By: MANNY Non-Formulary Medication (Umeclidinium-Vilanterol [Anoro Ellipta]) 1 inhalation INHALE DAILY [facility] Omeprazole (Omeprazole 40 Mg Capsule.) 40 mg PO DAILY@0630 [facility] Last Admin: 03/15/22 06:37 Dose: 40 mg Documented By: ANTMAYA Ondansetron HCl (Ondansetron Hcl 4 Mg/2 Ml Vial) 4 mg IVPUSH Q8H PRN PRN Reason: Nausea and Vomiting Pharmacy Consult (Consult Rx Perform Med Rec) 1 each MISCELLANE ONCE PRN PRN Reason: Consult order Trazodone HCl (Trazodone Hcl 50 Mg Tablet) 50 mg PO BEDTIME PRN PRN Reason: for insomnia Last Admin: 03/14/22 20:30 Dose: 50 mg Documented By: RITCHIE Labs CBC & Chem 7: 03/15/22 06:28 03/13/22 06:43 Labs: Laboratory Results - last 24 hr 03/15/22 03/15/22 06:28 06:28 MCV 88.2 MCH 28.8 MCHC 32.7 RDW 15.0 Plt Count 202 MPV 10.2 Absolute Nucleated RBC 0.000 Nucleated RBC % (auto) 0.0 C-Reactive Protein 1.91 H Microbiology Microbiology Results: Microbiology 03/12/22 23:16 Blood Culture - Preliminary Blood - Venous No growth after 48 hours. 03/12/22 23:17 Blood Culture - Preliminary Blood - Venous No growth after 48 hours. Assessment and Plan (1) Pulmonary embolism: Status: Acute (2) COPD with acute exacerbation: Status: Acute (3) Pneumonia due to COVID-19 virus: Status: Acute Plan 61yo F with COPD, HTN, OUD, recent Covid-19 infection [2 wk ago] presenting with dyspnea, found to be hypoxic and diagnosed with PE 1. Acute PE - hypercoagulability workup pending -Eliquis 10 mg q12h x7d, then 5 mg q12h; should f/u with Hematology as outpt 2.Hypoxic resp failure, acute secondary to COVID-19 infection - Suppl O2, wean as tolerated. Still requiring 1.5L via NC. 3. COPD exacerbation secondary to COVID-19 -continue DuoNebs q.4 hours around the clock while awake -switch to methylprednisolone pulse dosing -titrate O2 as tolerated 3. HTN -acceptable control on current therapies - continue clonidine + HCTZ -adjust as indicated 4.Mood disorder - continue clonazepam/clonidine/gabapentin/hydroxyzine 5.OUD - continue Suboxone # VTE ppx: apixaban Requires ongoing hospitalization for IV methylprednisolone to treat COPD exacerbation secondary to COVID-19 Quality Stroke Does the patient have a stroke diagnosis?: No VTE Prior VTE?: No VTE Risk Level:: Medical - moderate - high VTE Device Contraindication: Treatment Not Indicated VTE Drug Contraindication: N/A - Med Ordered
[2022-03-15] MEDS: Acetaminophen 325 MG TABLET 650 MG PO ×2 (16:35→23:34)
[2022-03-15] MEDS: methylPREDNISolone Sod Succ 125 MG/2 ML VIAL IVPUSH (16:36)
[2022-03-15] MEDS: traZODone HCL 50 MG TABLET PO (21:57)
[2022-03-15] MEDS: guaiFEN/Codeine SF 200/20/10ML 10 ML LIQUID PO (21:57)
[2022-03-15] MEDS: hydrOXYzine HCL 25 MG TABLET PO (21:57)
[2022-03-16] VITALS (7 sets, daily range): BP systolic 119–149; BP diastolic 65–83; PULSE 66–87; RESP 14–20; TEMP 36.5–36.7; O2SAT 94–97
[2022-03-16] MEDS: Omeprazole 40 MG CAPSULE.DR PO (05:50)
[2022-03-16 07:07] LABS: MANUAL DIFF FLAG NO
[2022-03-16 07:28] LABS: Basophils Percent Auto 0.1 % (0-2); Hematocrit 37.7 % (37.0-47.0); Hemoglobin 12.4 g/dl (12.0-16.0); Imm Gran Abs Auto 0.13 X10*3/uL (0.00-0.03); Imm Gran Pct Auto 0.9 % (0.0-0.4); Lymphocytes Absolute Auto 2.4 X10*3/uL (1.2-4.9); Mean Corpuscular HGB Conc 32.9 g/dl (31.0-35.0); Mean Corpuscular Volume 88.1 fL (80.0-98.0); Mean Platelet Volume 10.5 fL (9.4-12.3); Monocytes Absolute Auto 0.8 X10*3/uL (0.1-1.2); Monocytes Percent Auto 5.1 % (2-11); Neutrophils Absolute Auto 11.5 x10*3/uL (2.0-8.3); Neutrophils Percent Auto 77.9 % (45-73); Platelet Count 221 X10*3/uL (160-400); Red Blood Count 4.28 X10*6/uL (4.20-5.50); White Blood Count 14.7 X10*3/uL (4.8-10.8)
[2022-03-16] MEDS: Albuterol/Iprat 2.5/0.5MG 3 ML AMPUL.NEB INHALE ×3 (07:46→15:10)
[2022-03-16 07:52] LABS: Alanine Aminotransferase 18 U/L (0-31); Alkaline Phosphatase 85 U/L (39-117); Anion Gap 19 (12-20); Aspartate Amino Transferase 14 U/L (5-31); Bilirubin Total 0.2 mg/dL (0.0-1.0); Blood Urea Nitrogen 20 mg/dL (9-16); Calcium 9.4 mg/dL (8.4-10.2); Carbon Dioxide 26 mmol/L (22-29); Chloride 101 mmol/L (96-108); Creatinine Clr Calc Pharmacy 98.7; Estimated Glomerular Filt Rate > 60; Glucose Fasting 129 mg/dL (60-99); Potassium 3.7 mmol/L (3.3-5.1); Sodium 142 mmol/L (135-145); Total Protein 6.8 g/dL (6.5-8.0)
[2022-03-16] MEDS: Nicotine 14 MG PATCH.TD24 TRANSDERMA (09:18)
[2022-03-16] MEDS: hydroCHLOROthiazide 12.5 MG TABLET PO (09:18)
[2022-03-16] MEDS: FLUoxetine HCl 20 MG CAPSULE 60 MG PO (09:18)
[2022-03-16] MEDS: cloNIDine HCL 0.2 MG TABLET PO (09:19)
[2022-03-16] MEDS: guaiFEN/Codeine SF 200/20/10ML 10 ML LIQUID PO ×2 (09:19→15:05)
[2022-03-16] MEDS: methylPREDNISolone Sod Succ 125 MG/2 ML VIAL 60 MG IVPUSH ×2 (09:19→12:58)
[2022-03-16] MEDS: Apixaban 5 MG TABLET 10 MG PO (09:19)
[2022-03-16] MEDS: Buprenorphine/Naloxone 8/2 mg FILM 1 FILM SUBLINGUAL (09:19)
[2022-03-16] MEDS: Gabapentin 400 MG CAPSULE PO ×2 (09:19→14:16)
[2022-03-16] MEDS: Multivitamin TABLET 1 TAB PO (09:19)
[2022-03-16] MEDS: Docusate Sodium 100 MG CAPSULE PO (11:45)
[2022-03-16] MEDS: clonazePAM 1 MG TABLET PO (11:45)
--- NOTE | 2022-03-16 12:09 | P.DS_ITS ---
DS: Providers Provider Date of Service: 03/16/22 Date of admission: 03/13/22 05:53 Date of discharge: 03/16/22 Primary care physician: Amari Mckeon PA-C DS: Diagnosis Discharge Diagnosis (1) Pulmonary embolism: Status: Acute (2) COPD with acute exacerbation: Status: Acute (3) Pneumonia due to COVID-19 virus: Status: Acute DS: Summary Hospital Course Hospital Course: 61-year-old female with past medical history of hypertension, COPD, major depressive disorder, anxiety, presents the hospital with complaints of shortness of breath.? Patient reports that her symptoms started about 2 days ago, she had COVID 2 weeks ago, she still has a cough, nonproductive, no chest pain, no abdominal pain, no nausea or vomiting, no diarrhea constipation, no urinary symptoms.? No lower extremity edema. On arrival to the ED patient noted to have 85% O2 on room air, Labs are significant for WBC count of 11, hemoglobin of 12.2, hematocrit 36.9, labs otherwise significant for lactic of 2.6 that normalized after fluid UA shows trace leukocyte Estrace but asymptomatic Chest CT angiogram shows nonocclusive pulmonary emboli within the right lower as well as middle lobe were of pulmonary arteries extending into the segmental branches, there is also attenuation pattern of the upper lungs with patchy irregular ground-glass opacities Patient started on anticoagulation and will be admitted for further management Hospital course Patient was admitted to telemetry where she remained hemodynamically stable with satisfactory oxygenation. She continued to have symptoms of a COPD exacerbation related to COVID was placed on pulse dose steroids. Proximal 24 hours after the start of the steroids she had a marked improvement and no longer had an O2 requirement. This a.m. she is satting well on room air and is requesting discharge. She will be discharged complete a course of prednisone taper and follow-up with PCP. She was started on Eliquis 10 mg b.i.d. and her last b.i.d. dosing will be 03/20/2022. After that she will be on Eliquis 5 mg b.i.d. and further directions from her PCP Time Spent with Patient Time attestation: Total time spent providing and/or coordinating discharge services: Discharge coordination time: Greater than 30 minutes Quality: Safe Use of Opioids Does Pt have an Active Cancer Diagnosis on the Problem List?: No Quality: Stroke Does the patient have a stroke diagnosis?: No Physical Exam Vital Signs: Vital Signs: Last Vital Signs Temp 98.1 F 03/16/22 11:16 Pulse 86 03/16/22 11:20 Resp 18 03/16/22 11:20 BP 149/83 H 03/16/22 11:16 Pulse Ox 95 03/16/22 11:16 O2 Del Method 03/16/22 11:16 O2 Flow Rate 1 03/15/22 16:00 FiO2 96 03/15/22 20:00 BMI result Body Mass Index 34.9 Const: Other: Awake alert able speak in full sentences Resp: Other: Diminished bilateral bases with dense expiratory wheezes throughout Cardio: Other: No S4; positive S1-S2; no S3 murmurs or gallops GI: Other: Soft nontender nondistended normoactive bowel sounds Extrem: Other: No edema bilaterally DS: Data Data Completed and Pending Labs on day of discharge: Laboratory Results - last 24 hr 03/16/22 03/16/22 06:27 06:27 WBC 14.7 H RBC 4.28 Hgb 12.4 Hct 37.7 MCV 88.1 MCH 29.0 MCHC 32.9 RDW 15.0 Plt Count 221 MPV 10.5 Immature Gran % (Auto) 0.9 H Neut % (Auto) 77.9 H Lymph % (Auto) 16.0 L [place] % (Auto) 5.1 Eos % (Auto) 0.0 Baso % (Auto) 0.1 Lymph # (Auto) 2.4 [place] # (Auto) 0.8 Eos # (Auto) 0.0 Baso # (Auto) 0.0 Abs Immat Gran (auto) 0.13 H Absolute Neuts (auto) 11.5 H Absolute Nucleated RBC 0.000 Nucleated RBC % (auto) 0.0 Sodium 142 Potassium 3.7 Chloride 101 Carbon Dioxide 26 Anion Gap 19 BUN 20 H D Creatinine 0.65 Estim Creat Clear Calc 98.7 Estimated GFR > 60 Fasting Glucose 129 H Calcium 9.4 D Total Bilirubin 0.2 AST 14 D ALT 18 Alkaline Phosphatase 85 Total Protein 6.8 Albumin 4.0 Preliminary micro results at discharge 03/12/22 23:16 Blood Culture - Preliminary Blood - Venous No growth after 48 hours. 03/12/22 23:17 Blood Culture - Preliminary Blood - Venous No growth after 48 hours. Discharge Plan Discharge Anticipated Discharge Date/Time: 03/16/22 12:12 Patient Disposition: Home Health Service Discharge Diagnosis: COPD exacerbation secondary to Covid-19 Referrals: Amari Mckeon PA-C [Primary Care Provider] - 1 Week Discharge Medications: New Eliquis 5 mg Tablet 10 mg PO BID Qty: 20 0RF gabapentin 400 mg Capsule 400 mg PO TID Qty: 21 0RF clonazepam 1 mg Tablet 1 mg PO Q12H PRN (Reason: anxiety) Qty: 30 0RF prednisone 10 mg tablet See Rx Instructions .Route .COMPLEX Qty: 45 0RF Rx Instructions: 10 mg orally; 5 tabs p.o. daily x3 days; 4 tabs p.o. daily x3 days; 3 tabs daily x3 days; 2 tabs daily x3 days; 1 tab daily x3 days Continued albuterol sulfate [ProAir HFA] 90 mcg/actuation HFA aerosol inhaler 1 puff PO Q4H PRN (Reason: bronchospasm) Qty: 8.5 3RF omeprazole 40 mg capsule,delayed release(DR/EC) 40 mg PO DAILY 90 Days Qty: 90 1RF Anoro Ellipta 62.5-25 mcg/actuation blister with device 1 inh inhalation DAILY 30 Days Qty: 1 6RF fluoxetine 20 mg capsule 60 mg PO DAILY Qty: 90 3RF hydrochlorothiazide 12.5 mg tablet 12.5 mg PO DAILY 30 Days Qty: 30 3RF hydroxyzine HCl 25 mg tablet 25 mg PO BEDTIME 30 Days Qty: 30 6RF diclofenac potassium 50 mg tablet 50 mg PO BID PRN (Reason: pain, severe) 30 Days Qty: 60 0RF Rx Instructions: Take it with food. trazodone 50 mg tablet 50 mg PO BEDTIME PRN (Reason: for insomnia) 90 Days Qty: 90 3RF gabapentin 400 mg capsule 400 mg PO TID 30 Days Qty: 90 0RF clonazepam 1 mg tablet 1 mg PO DAILY 30 Days Qty: 30 1RF buprenorphine-naloxone [Suboxone] 8-2 mg film 1 strip sublingual DAILY clonidine HCl 0.2 mg tablet 0.2 mg PO BID 30 Days Qty: 60 3RF nicotine (polacrilex) 4 mg lozenge 4 mg buccal Q2-4H PRN (Reason: nicotine cravings) 30 Days Qty: 216 3RF multivitamin Tablet 1 tab PO DAILY Discontinued (DME) blood pressure test kit-medium Kit See Rx Instructions .Route Qty: 1 0RF Rx Instructions: As directed Discharge Orders: Discharge Order (Routine); Ordered 03/16/22 Ordered By: Edison Granados Diet: Advance to usual diet Activity on Discharge: As tolerated Stand Alone Forms: Patient Portal Discharge page Care Plan Goals: Take Eliquis to 2 tabs (10 mg) twice a day with your last dose being the evening of 03/20/2022. Refill Eliquis to intake 5 mg twice a day until seen by your PCP; they wound structure on further dosing Health Concerns: Resume all other pre-hospital medications; complete prednisone taper as outlined on the prescription Plan of Treatment: Follow-up with your PCP in 2 weeks Assessment: See discharge summary
--- NOTE | 2022-03-16 12:32 | MHC.CM.PN ---
Female 61 DX PE is discharged today to home self care. The Eliquis coupon has been provided. Patient has arranged for transportation home.
[2022-03-17 05:43] LABS: Cardiolipin IgG Ab <2.0 GPL-U/mL; Cardiolipin IgM Ab <2.0 MPL-U/mL
== END 2022-03-16 16:14 | disposition home health service (06) | DRG 139 ==
LOC: HO.ED 03-13 01:31 → HO.EDOVER 03-13 05:58 → HO.IMC 03-13 21:59
PROVIDERS: Family Medicine; Nurse Practitioner Family; Admitting Provider Internal Medicine; Emergency Provider Emergency Medicine; PCP Physician Assistant; Visit Provider Hospitalist
DX: J18.9 Pneumonia, unspecified organism (principal); J96.01 Acute respiratory failure with hypoxia; I26.99 Other pulmonary embolism without acute cor pulmonale; F32.9 Major depressive disorder, single episode, unspecified; F11.20 Opioid dependence, uncomplicated; U09.9 Post COVID-19 condition, unspecified; F41.9 Anxiety disorder, unspecified; J43.9 Emphysema, unspecified; N39.0 Urinary tract infection, site not specified; Z20.822 Contact with and (suspected) exposure to COVID-19; Z88.0 Allergy status to penicillin; Z79.01 Long term (current) use of anticoagulants; Z79.899 Other long term (current) drug therapy
CPT/HCPCS: 0241U; 36415; 70450; 71045; 71275; 72100; 72220; 73564; 80048; 80053; 81001; 81003; 81240; 81241; 82728; 83605; 83615; 83735; 83880; 84145; 84484; 85025; 85027; 85300; 85302; 85303; 85305; 85306; 85379; 85597; 85610; 85613; 85730; 86140; 86147; 87040; 93005; 94640; 99285; J0696; J1100; J1650; J2930; Q9967

== ENCOUNTER → 2022-03-26 10:29 | Outpatient (BNVA) | payer OTHER, SELFPAY | PROVIDERS: PCP Physician Assistant; Visit Provider Internal Medicine Pulmonary Disease | DX: J43.9 Emphysema, unspecified (principal) | CPT/HCPCS: 99212 ==

== ENCOUNTER 2022-04-30 20:02 | Emergency (ER) | payer OTHER, SELFPAY ==
--- NOTE | ~2022-04-30 | CT_ITS ---
EXAMINATION: CT ABDOMEN AND PELVIS WITHOUT CONTRAST CLINICAL INFORMATION: back pain on eliqus, please get the hips too . COMPARISON: 10/06/2019. TECHNIQUE: Multidetector volumetric imaging was performed from the superior aspect of the liver through the pubic symphysis without contrast per request. Sagittal and coronal reformatted images were obtained on the technologist workstation. This CT examination was performed using dose optimization techniques as appropriate, variously including the following: *Automated exposure control *Adjustment of mA and/or kV according to patient size (this includes techniques or standardized protocols for targeted exams where dose is matched to indication/reason for exam; i.e. extremities or head) *Use of iterative reconstruction technique DLP: 815 mGy-cm. FINDINGS: LUNG BASES: Minimal dependent atelectasis LIVER, GALLBLADDER, BILIARY TREE: The non-contrast liver is normal in size, shape, and attenuation. No focal hepatic lesion or biliary ductal dilatation is present. The gallbladder is unremarkable with no evidence of radiopaque gallstones, gallbladder wall thickening, or obvious pericholecystic inflammatory changes. PANCREAS: Scattered coarsened calcifications in the pancreas consistent with sequela of chronic pancreatitis but no acute peripancreatic inflammatory changes or fluid. SPLEEN: Unremarkable. ADRENAL GLANDS: Unremarkable. KIDNEYS AND URETERS: The kidneys are normal in size, shape, and attenuation. No hydronephrosis, hydroureter, or calculi seen. No perinephric stranding. BLADDER: Unremarkable. GASTROINTESTINAL TRACT: Scattered colonic diverticulosis more so in the sigmoid colon. No colonic wall thickening or pericolonic inflammatory change to suggest diverticulitis. Visualized small bowel is unremarkable ABDOMINAL WALL: No significant hernia is appreciated. LYMPHOVASCULAR STRUCTURES: Mild vascular calculation within the aorta iliac system. Incidental retroaortic left renal vein. I do not appreciate any evidence for retroperitoneal hematoma.. PELVIC VISCERA: Unremarkable. OSSEUS STRUCTURES: Degenerative changes in the hips and spine with intradiscal fusion of L4/L5 CT/CT abdomen pelvis wo IV con IMPRESSION: Chronic appearing changes as described above. I do not appreciate any acute intra-abdominal process. Specifically no evidence for retroperitoneal hematoma.
[2022-04-30 20:17] VITALS: BP 112/76; BP 133/100; PULSE 128; PULSE 82; RESP 16; TEMP 37.3; O2SAT 94; O2SAT 97; BMI 34.0
[2022-04-30 20:38] VITALS: BP 123/63; PULSE 77; RESP 16; TEMP 37.3; O2SAT 94
--- NOTE | 2022-04-30 20:41 | ED_ITS ---
HPI - General Adult General Chief complaint: Extremity Problem Stated complaint: lower back pain Time Seen by Provider: 04/30/22 20:19 History of Present Illness HPI narrative: Patient is a 61-year-old female with a history of pulmonary embolism history of being on Eliquis presenting today with having back pain. Back pain radiating down to the right leg. History of sciatica. History of back surgery in the past. Patient has denies any new leg swelling. Been on Eliquis for the last month. Been taking it religiously. There is no fever no chills. No travel history. No trauma. The pain is the same as previous sciatica pain. Patient denies any bowel urinary incontinence. Related Data Home Medications Medication Instructions Recorded Confirmed multivitamin 1 tab PO DAILY 02/10/22 03/23/22 buprenorphine 8 mg-naloxone 2 mg 1 strip sublingual DAILY 03/13/22 03/23/22 sublingual film (Suboxone) vitamin B complex 1 tab PO DAILY 03/23/22 03/23/22 Previous Rx's Medication Instructions Recorded albuterol sulfate 90 mcg/actuation 1 puff PO Q4H PRN bronchospasm 08/31/21 aerosol inhaler (ProAir HFA) #8.5 caps umeclidinium 62.5 mcg-vilanterol 1 inh inhalation DAILY 30 days #1 11/06/21 25 mcg/actuation powdr for ea inhalation (Anoro Ellipta) fluoxetine 20 mg capsule 60 mg PO DAILY #90 caps 12/15/21 hydrochlorothiazide 12.5 mg tablet 12.5 mg PO DAILY 30 days #30 tabs 01/17/22 hydroxyzine HCl 25 mg tablet 25 mg PO BEDTIME 30 days #30 tabs 02/24/22 diclofenac potassium 50 mg tablet 50 mg PO BID PRN pain, severe 30 02/28/22 days #60 tabs trazodone 50 mg tablet 50 mg PO BEDTIME PRN for insomnia 03/01/22 90 days #90 tabs nebulizers #1 ea 03/16/22 albuterol sulfate 2.5 mg/3 mL 2.5 mg (3 mL) inhalation Q6H PRN 03/18/22 (0.083 %) solution for nebulization shortness of breath or wheezing 30 days #360 mL cane #1 ea 03/18/22 dextromethorphan-guaifenesin 5 10 ml PO Q4-8H PRN cough 15 days 03/18/22 mg-100 mg/5 mL oral liquid #355 mL nicotine 21 mg/24 hr daily 1 patch transdermal DAILY 14 days 03/18/22 transdermal patch #14 ea apixaban 5 mg tablet (Eliquis) 5 mg PO BID #180 tabs 03/23/22 azithromycin 250 mg tablet See Rx Instructions PO .COMPLEX #6 03/26/22 tabs methocarbamol 750 mg tablet 750 mg PO BID PRN muscle spasm 60 03/26/22 days #60 tabs clonazepam 1 mg tablet 1 mg PO DAILY 30 days #30 tabs 04/14/22 clonidine HCl 0.2 mg tablet 0.2 mg PO BID 30 days #60 tabs 04/14/22 gabapentin 400 mg capsule 400 mg PO TID 30 days #90 caps 04/21/22 omeprazole 40 mg capsule,delayed 40 mg PO DAILY 90 days #90 caps 04/23/22 release Allergies Allergy/AdvReac Type Severity Reaction Status Date / Time Penicillins [PENICILLINS] Allergy Intermediate RASH Verified 03/26/22 10:31 (CHILDHOOD ALLERGY) Review of Systems Review of Systems: Positive back pain radiating down right leg No bowel urinary incontinence No focal weakness Yes all other systems are reviewed and are negative PMFSH Past Medical History Attestation statement: The following information was validated with the patient. Medical History Acute anxiety Depression Ganglion cyst GERD (gastroesophageal reflux disease) Insomnia Obese Otitis externa RUQ abdominal pain Tubular adenoma of colon Surgical History History of esophagogastroduodenoscopy (EGD) Hx of colonoscopy Previous back surgery Family History Family History Father Alzheimer disease Mother Stroke Brother Esophageal cancer Other Mental problem Substance abuse Social History Social History Household Members: Significant Other Household Members Other:: 1 Housing: Apartment Are you a primary child care coordinator to a significant other at home: No Do you presently have visiting nurse or other home services: No Alcohol intake: former Patient Tobacco Use Status: Current everyday Tobacco user Tobacco use type: Cigarette Cigarette Packs Per Day: 1 Years Smoked: 40 Smoked in Last 30 Days: Yes e-Cigarette/Vaping Use: Former Use Second Hand Smoke Exposure: Yes Use of substances other than those prescribed or required for medical reasons: No Substance Use Type: Marijuana Advance Directives: Yes Advance Directives on File: Yes Advance Directives Date on File: 03/17/22 Patient : No service: No Current occupational status: employed 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 Oriented X3. No acute distress. Eyes: Pupils equal, round and reactive to light. ENT: Pharynx normal. Neck: Normal inspection. Neck supple. No lymph nodes noted. No crepitus CVS: Normal heart rate and rhythm. Pulses normal. Normal S1 and S2 Respiratory: No respiratory distress. Breath sounds normal. No Wheezing. No rales Abdomen: Soft and nontender. No rigidity. No distention. good BS x4 Skin: Skin warm and dry. Normal skin color. Normal skin turgor. Extremities: No lower extremity edema. Neurovascular intact to all extremities. Positive straight leg raise test on the right side. Unable to lift up like to 45 degrees. No Lacerations. No Rash Neuro: Oriented X 3. No motor deficit. No sensory deficit. Moving all exte rmities. No slurred speech Medications Administered Discontinued Medications Generic Name Dose Route Start Last Admin Trade Name Freq PRN Reason Stop Dose Admin Hydromorphone HCl 0.5 mg 04/30/22 20:42 04/30/22 21:26 Hydromorphone Hcl 0.5 Mg/0.5 Ml Syringe IVPUSH 04/30/22 20:43 0.5 mg ONCE ONE Administration Protocol Ketorolac Tromethamine 30 mg 04/30/22 20:44 04/30/22 21:26 Ketorolac Tromethamine 30 Mg/Ml Vial IVPUSH 04/30/22 20:45 30 mg ONCE ONE Administration Lorazepam 0.5 mg 04/30/22 20:45 04/30/22 21:26 Lorazepam 2 Mg/Ml Vial IVPUSH 04/30/22 20:46 0.5 mg ONCE ONE Administration Medical Decision Making Medical Decision Making [facility] Narrative: No bowel urinary incontinence. No focal weakness. Positive back pain positive pain radiating down the leg consistent with sciatica. Will give pain medications. No history of renal insufficiency. Will get CT scan of the abdomen pelvis to rule out a bleed. Will also get a look at the lumbar spine and the hip. Currently in stable condition. Patient's CT scan of the abdomen pelvis showed no evidence of bony fractures. No hematoma noted. Patient pain relief with medication. Will discharge patient home. There is no bowel urinary incontinence. There is no focal weakness to suggest cord Aquinas syndrome. In stable condition with discharge. No need for admission given patient's pain is controlled Differential Diagnoses: Differential diagnosis Consideration of admission/observation: Consideration of Admission/Observation Lab Attestation: I reviewed the patient's lab results. Tests considered but not performed: Tests Considered But Not Performed Prescription medication was considered but ultimately not given after discussion with patient/family. (e.g., pain medication, antiviral, antibiotic): Prescriptions considered but not given Chronic conditions affecting care (e.g., diabetes, HTN): Chronic conditions affecting care (e.g., diabetes, HTN) Care significantly affected by Social Determinants of Health (e.g., housing and economic circumstances, unemployment): Care affected by Social Determinants of Health Discharge Plan Discharge Clinical Impression: Sciatic leg pain Patient Disposition: Home, Self-Care Instructions: Sciatica (ED) Prescriptions: No Action albuterol sulfate [ProAir HFA] 90 mcg/actuation HFA aerosol inhaler 1 puff PO Q4H PRN (Reason: bronchospasm) Qty: 8.5 3RF Anoro Ellipta 62.5-25 mcg/actuation blister with device 1 inh inhalation DAILY 30 Days Qty: 1 6RF fluoxetine 20 mg capsule 60 mg PO DAILY Qty: 90 3RF hydrochlorothiazide 12.5 mg tablet 12.5 mg PO DAILY 30 Days Qty: 30 3RF hydroxyzine HCl 25 mg tablet 25 mg PO BEDTIME 30 Days Qty: 30 6RF diclofenac potassium 50 mg tablet 50 mg PO BID PRN (Reason: pain, severe) 30 Days Qty: 60 0RF Rx Instructions: Take it with food. trazodone 50 mg tablet 50 mg PO BEDTIME PRN (Reason: for insomnia) 90 Days Qty: 90 3RF (DME) nebulizers Misc See Rx Instructions .Route Qty: 1 0RF Rx Instructions: As directed clonidine HCl 0.2 mg tablet 0.2 mg PO BID 30 Days Qty: 60 6RF clonazepam 1 mg tablet 1 mg PO DAILY 30 Days Qty: 30 1RF gabapentin 400 mg capsule 400 mg PO TID 30 Days Qty: 90 0RF omeprazole 40 mg capsule,delayed release(DR/EC) 40 mg PO DAILY 90 Days Qty: 90 1RF vitamin B complex Tablet 1 tab PO DAILY Eliquis 5 mg Tablet 5 mg PO BID Qty: 180 3RF buprenorphine-naloxone [Suboxone] 8-2 mg film 1 strip sublingual DAILY albuterol sulfate 2.5 mg /3 mL (0.083 %) solution for nebulization 2.5 mg inhalation Q6H PRN (Reason: shortness of breath or wheezing) 30 Days Qty: 360 3RF nicotine 21 mg/24 hr patch 24 hour 1 patch transdermal DAILY 14 Days Qty: 14 0RF (DME) cane Device See Rx Instructions .Route Qty: 1 0RF Rx Instructions: As directed dextromethorphan-guaifenesin 5-100 mg/5 mL liquid 10 ml PO Q4-8H PRN (Reason: cough) 15 Days Qty: 355 1RF azithromycin 250 mg tablet See Rx Instructions PO .COMPLEX Qty: 6 0RF Rx Instructions: For 250 mg dose pack: take 500 mg today (day 1), then 250 mg for 4 days (days 2-5) PO methocarbamol 750 mg tablet 750 mg PO BID PRN (Reason: muscle spasm) 60 Days Qty: 60 1RF multivitamin Tablet 1 tab PO DAILY Referrals: Amari Mckeon PA-C [Primary Care Provider] -
[2022-04-30 20:51] LABS: INTERNATIONAL NORM RATIO 1.4 (0.9-1.1); Prothrombin Time 16.7 SEC (10.0-13.1)
--- NOTE | 2022-04-30 21:17 | PC.NURSE ---
PT's V/S are stable, Pt is a/o x5, pt reports experiencing chronic pain on her right hop that radiates to the right knee. Pt states the past 2 days the pain become excruciating that she was not able to ambulate. PT has IC 18 on her right forearm, labs has been drawn and pt is waiting for the CT scan.
[2022-04-30] MEDS: Ketorolac Tromethamine 30 MG/ML VIAL IVPUSH (21:26)
[2022-04-30] MEDS: LORazepam 2 MG/ML VIAL 0.5 MG IVPUSH (21:26)
[2022-04-30] MEDS: HYDROmorphone HCl 0.5 MG/0.5 ML SYRINGE IVPUSH (21:26)
[2022-04-30 21:36] LABS: Anion Gap 13 (12-20); Blood Urea Nitrogen 9 mg/dL (9-16); Calcium 9.3 mg/dL (8.4-10.2); Carbon Dioxide 34 mmol/L (22-29); Chloride 97 mmol/L (96-108); Estimated Glomerular Filt Rate > 60; Glucose Random 107 mg/dL (60-115); Potassium 3.2 mmol/L (3.3-5.1); Sodium 141 mmol/L (135-145)
[2022-04-30 22:05] LABS: Hematocrit 36.4 % (37.0-47.0); Hemoglobin 12.1 g/dl (12.0-16.0); Mean Corpuscular HGB Conc 33.2 g/dl (31.0-35.0); Mean Corpuscular Hemoglobin 28.8 pg (27.0-33.0); Mean Corpuscular Volume 86.7 fL (80.0-98.0); Mean Platelet Volume 10.3 fL (9.4-12.3); Platelet Count 206 X10*3/uL (160-400); Red Cell Distribution Width 15.3 % (11.0-16.0); White Blood Count 12.6 X10*3/uL (4.8-10.8)
[2022-04-30 22:56] VITALS: BP 102/50; PULSE 71; RESP 12; TEMP 36.8; O2SAT 91
[2022-05-01 00:42] VITALS: BP 121/59; PULSE 67; RESP 13; TEMP 36.6; O2SAT 97
== END 2022-05-01 02:05 | disposition home or self-care (01) ==
PROVIDERS: Emergency Provider Emergency Medicine Emergency Medical Services; PCP Physician Assistant
DX: M54.41 Lumbago with sciatica, right side (principal); M79.604 Pain in right leg; R10.9 Unspecified abdominal pain; Z79.4 Long term (current) use of insulin; Z86.711 Personal history of pulmonary embolism; F17.210 Nicotine dependence, cigarettes, uncomplicated; Z71.6 Tobacco abuse counseling; Z79.899 Other long term (current) drug therapy
CPT/HCPCS: 36415; 74176; 80048; 85027; 85610; 96374; 96375; 99284; J1170; J1885; J2060

== ENCOUNTER 2022-09-25 19:36 | Emergency (ER) | payer OTHER, SELFPAY ==
--- NOTE | ~2022-09-25 | XR_ITS ---
EXAMINATION: XR ANKLE, RIGHT CLINICAL INFORMATION: Acute right posterior ankle pain. COMPARISON: None available. TECHNIQUE: AP, lateral, and mortise views of the right ankle. FINDINGS: No fracture or malalignment. Ankle mortise is symmetric. No appreciable soft tissue swelling in the region of the Achilles. Small plantar calcaneal enthesopathic spur. No evidence of an osteochondral injury at the talus. XR/XR ankle RT min 3V IMPRESSION: 1. No acute osseous abnormalities. 2. Small plantar calcaneal enthesopathic spur.
[2022-09-25 19:44] VITALS: BP 126/49; BP 142/84; PULSE 84; PULSE 99; RESP 18; TEMP 37.2; O2SAT 96; BMI 32.0
[2022-09-25 19:56] VITALS: BP 126/49; PULSE 84; RESP 18; TEMP 37.2; O2SAT 96
[2022-09-25] MEDS: Acetaminophen 325 MG TABLET 975 MG PO (21:14)
[2022-09-25] MEDS: Gabapentin 300 MG CAPSULE PO (21:15)
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
== END 2022-09-25 22:58 | disposition home or self-care (01) ==
PROVIDERS: Emergency Provider Emergency Medicine
DX: M25.571 Pain in right ankle and joints of right foot (principal); F39 Unspecified mood [affective] disorder; F17.210 Nicotine dependence, cigarettes, uncomplicated; Z71.6 Tobacco abuse counseling; Z79.899 Other long term (current) drug therapy
CPT/HCPCS: 73610; 99283; 99285

== ENCOUNTER 2022-09-28 16:56 | Emergency (ER) | payer OTHER, SELFPAY ==
[2022-09-28 17:20] VITALS: BP 119/79; PULSE 85; RESP 18; TEMP 36.7; O2SAT 98; BMI 30.9
--- NOTE | 2022-09-28 17:27 | PC.NURSE ---
eval and dc by [facility]
--- NOTE | 2022-09-28 17:28 | ED.GENADULT ---
HPI - General Adult General Chief complaint: Extremity Problem Stated complaint: right ankle pain Time Seen by Provider: 09/28/22 17:24 Source: patient and RN notes reviewed Mode of arrival: wheelchair Limitations: no limitations History of Present Illness HPI narrative: 61-year-old female presents for evaluation of right lower leg pain. Patient was seen here on Wednesday, 3 days ago. At the time she fell down when she was drinking alcohol She injured her right lower leg and was discharged home with an Aircast. She is requesting crutches She reports that she was supposed to be prescribed ?a topical cream for the pain but it was never sent through. ? Denies any further injuries She was given follow-up with Orthopedics Related Data Home Medications Medication Instructions Recorded Confirmed multivitamin 1 tab PO DAILY 02/10/22 05/27/22 buprenorphine 8 mg-naloxone 2 mg 1 strip sublingual DAILY 03/13/22 05/27/22 sublingual film (Suboxone) vitamin B complex 1 tab PO DAILY 03/23/22 05/27/22 Previous Rx's Medication Instructions Recorded trazodone 50 mg tablet 50 mg PO BEDTIME PRN for insomnia 03/01/22 90 days #90 tabs nebulizers #1 ea 03/16/22 cane #1 ea 03/18/22 nicotine 21 mg/24 hr daily 1 patch transdermal DAILY 14 days 03/18/22 transdermal patch #14 ea apixaban 5 mg tablet (Eliquis) 5 mg PO BID #180 tabs 03/23/22 methocarbamol 750 mg tablet 750 mg PO BID PRN muscle spasm 60 03/26/22 days #60 tabs omeprazole 40 mg capsule,delayed 40 mg PO DAILY 90 days #90 caps 04/23/22 release gabapentin 400 mg capsule 400 mg PO BID 30 days #60 caps 05/27/22 umeclidinium 62.5 mcg-vilanterol 1 ea PO DAILY #60 ea 06/23/22 25 mcg/actuation powdr for inhalation (Anoro Ellipta) azithromycin 250 mg tablet See Rx Instructions PO .COMPLEX #6 06/26/22 tabs prednisone 20 mg tablet 40 mg PO DAILY 5 days #10 tabs 06/26/22 albuterol sulfate 2.5 mg/3 mL 2.5 mg (3 mL) inhalation Q6H PRN 06/27/22 (0.083 %) solution for nebulization shortness of breath or wheezing 30 days #360 mL albuterol sulfate 90 mcg/actuation 1 puff PO Q4H PRN bronchospasm 06/29/22 aerosol inhaler (ProAir HFA) #8.5 caps hydrochlorothiazide 12.5 mg tablet 12.5 mg PO DAILY 30 days #30 tabs 07/17/22 fluoxetine 20 mg capsule 60 mg PO DAILY #90 caps 08/19/22 hydroxyzine HCl 25 mg tablet 25 mg PO BEDTIME 30 days #30 tabs 08/20/22 clonazepam 1 mg tablet 1 mg PO DAILY 30 days #30 tabs 08/31/22 diclofenac sodium 1 % topical gel 2 g topical QID #100 grams 09/28/22 (Voltaren Arthritis Pain) Allergies Allergy/AdvReac Type Severity Reaction Status Date / Time Penicillins [PENICILLINS] Allergy Intermediate RASH Verified 05/27/22 13:27 (CHILDHOOD ALLERGY) Review of Systems Musculoskeletal: Musculoskeletal: Reports arthralgias, Reports joint swelling and Reports limited range of motion PMFSH Past Medical History Medical History Acute anxiety Depression Ganglion cyst GERD (gastroesophageal reflux disease) Insomnia Obese Otitis externa RUQ abdominal pain Tubular adenoma of colon Surgical History History of esophagogastroduodenoscopy (EGD) Hx of colonoscopy Previous back surgery Family History Family History Father Alzheimer disease Mother Stroke Brother Esophageal cancer Other Mental problem Substance abuse Social History Social History Household Members: Significant Other Household Members Other:: 1 Housing: Apartment Are you a primary certified caregiver to a significant other at home: No Do you presently have visiting nurse or other home services: No Alcohol intake: current Alcohol intake frequency: former alcohol drinker Alcohol type: hard liquor Patient Tobacco Use Status: Current everyday Tobacco user Tobacco use type: Cigarette Cigarette Packs Per Day: 1 Years Smoked: 40 e-Cigarette/Vaping Use: Former Use Second Hand Smoke Exposure: Yes Substance Use Type: Crack/Cocaine Advance Directives: Yes Advance Directives on File: Yes Advance Directives Date on File: 03/17/22 service: No Current occupational status: employed 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, 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 Sexual orientation: Straight/Heterosexual Cognitive needs: Yes (cane) Hearing needs: No Vision needs: Yes (Glasses) Physical Exam ED Vital Signs: Vital Signs - 24 hr 09/28/22 17:20 Temperature 98.0 F Pulse Rate 85 Respiratory Rate 18 Blood Pressure 119/79 Pulse Oximetry 98 Oxygen Delivery Method Room Air BMI result Body Mass Index 30.9 Const General: healthy appearing, comfortable, no acute distress, alert and awake Nutritional Appearance: well nourished Orientation/consciousness: patient oriented x3 HENMT Head: Yes normocephalic and Yes atraumatic Eyes Eyelids: Yes eyelids normal Conjunctivae: conjunctivae normal Sclerae: sclerae normal Corneas: corneas normal Pupils: Equal, round and reactive pupils present EOM: EOMs intact bilaterally Neck Neck: Yes full ROM Skin General skin exam: no rashes or lesions noted and elasticity normal Neuro General: patient oriented x3 Cranial nerves: Yes CN's II-XII intact bilaterally and Yes Equal, round and reactive pupils present Cognition (Neuro): normal cognition Extrem Other: Patient has mild edema to the right lower extremity. She is tender over the right Achilles regions but the Achilles tendon is palpable. She is still able to flex and extend her right ankle. Medical Decision Making Medical Decision Making MDM Narrative: I reviewed her previous images I will discharge the patient with crutches and Voltaren. Still a very low suspicion for Achilles tendon rupture. Differential Diagnosis Differential Diagnoses: The differential diagnosis associated with the presentation includes Right ankle pain Right lower leg strain Achilles tendon rupture DVT less likely Discharge Plan Discharge Clinical Impression: Right leg injury Patient Disposition: Home, Self-Care Instructions: Crutch Instructions (ED) Additional Instructions: Use the Voltaren cream as prescribed. You may use the crutches for comfort Follow-up with your primary doctor and Orthopedics Prescriptions: New diclofenac sodium [Voltaren Arthritis Pain] 1 % gel 2 g topical QID Qty: 100 0RF Rx Instructions: apply to right lower leg No Action trazodone 50 mg tablet 50 mg PO BEDTIME PRN (Reason: for insomnia) 90 Days Qty: 90 3RF (DME) nebulizers Misc See Rx Instructions .Route Qty: 1 0RF Rx Instructions: As directed omeprazole 40 mg capsule,delayed release(DR/EC) 40 mg PO DAILY 90 Days Qty: 90 1RF Anoro Ellipta 62.5-25 mcg/actuation blister with device 1 ea PO DAILY Qty: 60 6RF azithromycin 250 mg tablet See Rx Instructions PO .COMPLEX Qty: 6 0RF Rx Instructions: take 500 mg today (day 1), then 250 mg for 4 days (days 2-5) PO prednisone 20 mg tablet 40 mg PO DAILY 5 Days Qty: 10 0RF albuterol sulfate 2.5 mg /3 mL (0.083 %) solution for nebulization 2.5 mg inhalation Q6H PRN (Reason: shortness of breath or wheezing) 30 Days Qty: 360 3RF albuterol sulfate [ProAir HFA] 90 mcg/actuation HFA aerosol inhaler 1 puff PO Q4H PRN (Reason: bronchospasm) Qty: 8.5 3RF hydrochlorothiazide 12.5 mg tablet 12.5 mg PO DAILY 30 Days Qty: 30 3RF fluoxetine 20 mg capsule 60 mg PO DAILY Qty: 90 3RF hydroxyzine HCl 25 mg tablet 25 mg PO BEDTIME 30 Days Qty: 30 3RF clonazepam 1 mg tablet 1 mg PO DAILY 30 Days Qty: 30 2RF vitamin B complex Tablet 1 tab PO DAILY Eliquis 5 mg Tablet 5 mg PO BID Qty: 180 3RF buprenorphine-naloxone [Suboxone] 8-2 mg film 1 strip sublingual DAILY nicotine 21 mg/24 hr patch 24 hour 1 patch transdermal DAILY 14 Days Qty: 14 0RF (DME) cane Device See Rx Instructions .Route Qty: 1 0RF Rx Instructions: As directed gabapentin 400 mg capsule 400 mg PO BID 30 Days Qty: 60 2RF methocarbamol 750 mg tablet 750 mg PO BID PRN (Reason: muscle spasm) 60 Days Qty: 60 1RF multivitamin Tablet 1 tab PO DAILY Interventions: ED Discharge Assessment Last Done: 09/28/22 17:27
== END 2022-09-28 17:34 | disposition home or self-care (01) ==
PROVIDERS: Emergency Provider Internal Medicine; PCP Physician Assistant
DX: M25.571 Pain in right ankle and joints of right foot (principal); F17.210 Nicotine dependence, cigarettes, uncomplicated; Z71.6 Tobacco abuse counseling; Z79.899 Other long term (current) drug therapy
CPT/HCPCS: 99282

== ENCOUNTER → 2022-11-06 14:26 | Outpatient (BNVA) | payer OTHER, SELFPAY | PROVIDERS: PCP Physician Assistant; Visit Provider Physician Assistant | DX: M54.16 Radiculopathy, lumbar region (principal) | CPT/HCPCS: 99202 ==

== ENCOUNTER → 2022-11-25 13:09 | Outpatient (BNVA) | payer OTHER, SELFPAY | PROVIDERS: PCP Physician Assistant; Visit Provider Anesthesiology | DX: M47.816 Spondylosis without myelopathy or radiculopathy, lumbar region (principal); M54.16 Radiculopathy, lumbar region; M96.1 Postlaminectomy syndrome, not elsewhere classified; M62.830 Muscle spasm of back; M70.60 Trochanteric bursitis, unspecified hip; M46.1 Sacroiliitis, not elsewhere classified; M53.3 Sacrococcygeal disorders, not elsewhere classified; I26.93 Single subsegmental thrombotic pulmonary embolism without acute cor pulmonale | CPT/HCPCS: 99212 ==

== ENCOUNTER 2022-12-17 10:22 | Outpatient (AMB) | payer OTHER, SELFPAY ==
--- NOTE | 2022-12-17 10:30 | MHC.OFFVIS ---
Intake Vital Signs 12/17/22 10:31 Height 5 ft 4 in Weight 187 lb 8 oz BMI 32.2 BP 128/68 Blood Pressure Location Lt brachial Position Sitting Respiration 16 Pulse 72 Pulse Source Pulse Oximeter Pulse Oximetry (%) 94 Oxygen Delivery Method Room Air Intake Visit Reasons: Follow Up per Dr. Jacobson Allergies Penicillins [PENICILLINS] Allergy (Intermediate, Verified 12/17/22 10:31) RASH (CHILDHOOD ALLERGY) HPI HPI Comments History of Present Illness Details Alessandra is a very pleasant 62 year old female who presents to the office for follow up chronic back pain. After last visit plan was for bilateral diagnostic SI joint injections which were ultimately denied by her insurance company even after peer to peer with Dr Jacobson d/t lack of attempt at PT or HEP. Discussed with patient today and she is willing to try PT, she is scheduled for fusion surgery next month with Dr Briones. She continues using tens unit at home, muscle relaxers as needed and NSAIDs with minimal relief. She states she attempted PT in the past but it was too painful, she does continue with HEP as tolerated. Denies changes in her back pain since last visit including new loss of bowel, bladder or saddle anesthesia. Prior: Patient presents today for follow-up . She last time was seen in the office at the end of 2021. Today she came to my office and complains on pain in lower back with radiation into the bilateral lower extremities. Attention was attracted to Albert test positive more on the right and less on the left, pelvis compression test and Gaenslen test is positive for bilateral sacroiliac joint pathology. I offered this patient will perform sacroiliac joint injection bilateral. She wants mild sedation for this procedure I will prescribe her Ativan while she is in injections center. I will see this patient after the procedure. Prior: Lumbar spine x-ray on 03/12/22 at ER visit s/p fall showed no subluxation or acute fracture of the lumbar spine. No acute displaced fracture of the sacrum or coccyx. Status post dorsal decompression and interbody fusion at L4-L5. Similar appearance of multilevel lumbar spondylosis. Lumbar spine MRI on 03/05/22 showed no significant spinal canal or neural foraminal stenosis at the operative level s/p L4-L5 laminectomy.? At L3-L4, there is mild degenerative disc disease and severe facet arthropathy with bilateral joint effusions, mild spinal canal stenosis, and mild bilateral neural foraminal narrowing. At L5-S1, degenerative disc and facet disease contributes to mild left and moderate right neural foraminal narrowing with impingement of the foraminal right L5 nerve root. Mild to moderate facet arthropathy at L1-L2 and L2-L3. She continues to endorse that her back pain radiates down to her bilateral lower extremities laterally and posteriorly with increased left buttock pain s/p fall. Patient denies any fever, chills, weight changes, abdominal or groin pain, bowel or bladder incontinent or saddle anesthesia. Given the recent events s/p fall and acute PE with initiation of Eliquis for 6 months, we will hold off on interventional procedures at this time. Patient is interested in starting formal physical therapy and HEP. She is using the TENS unit and recently started using a cane, although no cane use during today?s visit. PRIOR: Patient is a 61 years old female with past medical history significant for polysubstance abuse, generalized anxiety disorder, tobacco use disorder, PTSD, obesity, alcohol abuse with recent suicide ideation due to acute alcohol intoxication presents today for evaluation of chronic back pain and left knee pain. Currently on Campral and Suboxone. She has been referred to us by her PCP for chronic back pain that has been worsening. Patient reports L4-L5 spinal fusion in [address] Otto, [facility]. Denies any trauma, injury or falls prior to surgery and attributes her back pain to advancing arthritis. Patient reports she became addicted to opioids postoperatively while managing her pain on Percocet and Vicodin and then started buying Percocet on the streets for 5 years.? Pain is reported as mainly axial that travels upward to her middle back and also radiates down to her bilateral lower extremities laterally and at times posteriorly with significant left buttock pain. She reports weakness in BLE with intermittent numbness and tingling in her toes, left >right. Patient also reports tenderness in bilateral greater trochanteric bursa without groin pain. She describes her pain as constant shooting, hot burning, wrenching, sharp, dull, heavy, hurting, aching, tiring, radiating, and fearful. Pain affects her daily activities, functioning, mobility, mood, sleep, social interactions and quality of life. She reports an increase in pain with sweeping floors, bending forward, prolonged sitting, walking and standing. Due to pain, she reports a sedentary lifestyle and mostly lays down when she gets home after work. 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 Recent lumbar spine xram 01/19/22 was consistent with degenerative and postoperative changes. There is a disc spacing device at L4-L5, unchanged. There are severe disc and facet degenerative changes at L5-S1. Patient denies any fever, chills, malaise, abdominal or groin pain, bowel or bladder incontinent or saddle anesthesia. Patient reports left knee pain in the projection of the left medial joint line with significant tenderness. Left knee pain increased with weight bearing and climbing stairs with occasional buckling episodes. Imaging of both knees 04/29/20 showed mild degenerative change of the medial joint space compartments with chondrocalcinosis noted. She last saw orthopedics for right knee pain in 2019. Patient previously tried Ibuprofen, celebrex, gabapentin 400 mg TID, lidocaine patches, hot shower and heat therapy. She denies physical therapy and is not interested in pursuing PT due to significant radicular pain and weakness in her legs. Denies previous chiropractic manipulation, acupuncture, aquatic therapy, massage or TENS unit. We discussed variety of treatments to manage her chronic back and left knee pain, including therapeutic and diagnostic nerve blocks, neuromodulation and RFA procedures. I do not believe patient will pass behavioral evaluation for possibility of SCS trial or ITTD pain pump implant due to recent history of SI with acute alcohol intoxication, long standing history of alcohol and polysubstance abuse.? [facility] Medical History Acute anxiety Depression Ganglion cyst GERD (gastroesophageal reflux disease) Insomnia Obese Otitis externa RUQ abdominal pain Tubular adenoma of colon Surgical History History of esophagogastroduodenoscopy (EGD) Hx of colonoscopy Previous back surgery Family History Father Alzheimer disease Mother Stroke Brother Esophageal cancer Other Mental problem Substance abuse Social History Household Members: Significant Other Household Members Other:: 1 Housing: Apartment Are you a primary palliative care nurse to a significant other at home: No Do you presently have visiting nurse or other home services: No Alcohol intake: current Alcohol intake frequency: former alcohol drinker Alcohol type: hard liquor Patient Tobacco Use Status: Current everyday Tobacco user Tobacco use type: Cigarette Cigarette Packs Per Day: 1 Years Smoked: 40 e-Cigarette/Vaping Use: Former Use Second Hand Smoke Exposure: Yes Substance Use Type: Crack/Cocaine Advance Directives Date on File: 03/17/22 service: No Current occupational status: employed 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 Answers questions appropriately. Fully engaged in examination. Skin: warm, dry, intact without visible rashes or lesions. HEENT: Normocephalic. Conjuntivae clear without exudate. Sclera non-icteric. Hearing intact. Cardiac: External chest normal in appearance. Respiratory: No signs of trauma. No signs of respiratory distress. No cough, audible wheezing or stridor. Abdomen: without gross distension. MS: No obvious swelling or deformities. Able to transition from sit to stand unassisted. Ambulates with bilaterally normal heel strike and toe off Neurological: Oriented to person, place, time and situation. Thought process intact. Antalgic gait with cane Psychiatric: Appropriate mood and affect. Good judgment and insight. Assessment & Plan Assessment & Plan (1) Sacroiliac joint dysfunction of both sides: Code(s): M53.3 - Sacrococcygeal disorders, not elsewhere classified (2) Lumbar radiculopathy, chronic: Code(s): M54.16 - Radiculopathy, lumbar region (3) Lumbar post-laminectomy syndrome: Code(s): M96.1 - Postlaminectomy syndrome, not elsewhere classified (4) Muscle spasm of back: Code(s): M62.830 - Muscle spasm of back (5) Pulmonary embolism: Code(s): I26.99 - Other pulmonary embolism without acute cor pulmonale Qualifiers: Pulmonary embolism type: single subsegmental (without acute cor pulmonale) Qualified Code(s): I26.93 - Single subsegmental pulmonary embolism without acute cor pulmonale (6) Greater trochanteric bursitis: Code(s): M70.60 - Trochanteric bursitis, unspecified hip (7) Sacroiliitis: Code(s): M46.1 - Sacroiliitis, not elsewhere classified Plan Alessandra is a very pleasant 62 year old female who presents back to the office today for follow up after planned Bilateral Diagnostic SI joint injections were denies by her insurance. Her history, PE and provocative testing previously consistent with bilateral SI joint dysfunction, positive thigh thrust, positive Darren, positive Compression and tenderness over bilateral PSIS. Patient c/w Tens unit, NSAIDs and muscle relaxers. C/W HEP as tolerated She is willing to try PT again though does report it was too painful in the past. Order for PT eval and treat has been placed. if no relief with PT will attempt to obtain insurance authorization for bilateral diagnostic SI joint injections. All questions and concerns have been answered and patient agrees with the plan. Follow up after PT, sooner if needed. Orders: Orders PT Evaluation and Treatment Today M53.3 - Sacrococcygeal disorders, not elsewhere classified Quality Reporting (2019) Adult ([facility] 13807/15/68) Smoking risk assessment performed?: Yes Patient Tobacco Use Status: Current everyday Tobacco user Coding Level of Care Code Est Pt Level 3 (35843) Diagnoses Sacroiliac joint dysfunction of both sides M53.3 Lumbar radiculopathy, chronic M54.16 Lumbar post-laminectomy syndrome M96.1 Muscle spasm of back M62.830 Pulmonary embolism I26.93 Pulmonary embolism type: single subsegmental (without acute cor pulmonale) Greater trochanteric bursitis M70.60 Sacroiliitis M46.1
[2022-12-17 10:31] VITALS: BP 128/68; PULSE 72; RESP 16; O2SAT 94; BMI 32.2
== END 2022-12-17 10:49 | disposition home or self-care (01) ==
PROVIDERS: PCP Physician Assistant; Visit Provider Registered Nurse Emergency
DX: M53.3 Sacrococcygeal disorders, not elsewhere classified (principal); M54.16 Radiculopathy, lumbar region; M96.1 Postlaminectomy syndrome, not elsewhere classified; M62.830 Muscle spasm of back; I26.93 Single subsegmental thrombotic pulmonary embolism without acute cor pulmonale; M70.60 Trochanteric bursitis, unspecified hip; M46.1 Sacroiliitis, not elsewhere classified
CPT/HCPCS: 99213

== ENCOUNTER → 2022-12-17 10:22 | Outpatient (BNVA) | payer OTHER, SELFPAY | PROVIDERS: PCP Physician Assistant; Visit Provider Registered Nurse Emergency | DX: M53.3 Sacrococcygeal disorders, not elsewhere classified (principal); M46.1 Sacroiliitis, not elsewhere classified; M54.16 Radiculopathy, lumbar region; M96.1 Postlaminectomy syndrome, not elsewhere classified; M70.60 Trochanteric bursitis, unspecified hip; M62.830 Muscle spasm of back; I26.93 Single subsegmental thrombotic pulmonary embolism without acute cor pulmonale; F19.20 Other psychoactive substance dependence, uncomplicated; F10.20 Alcohol dependence, uncomplicated; Z79.899 Other long term (current) drug therapy | CPT/HCPCS: 99212 ==

== ENCOUNTER 2023-01-13 10:57 | Outpatient (AMB) | payer OTHER, SELFPAY ==
[2023-01-13 11:11] VITALS: BP 122/78; PULSE 88; O2SAT 91; BMI 33.0
--- NOTE | 2023-01-13 11:11 | A.OFFPC_ITS ---
Vital Signs 01/13/23 11:11 Height 5 ft 4 in Weight 192 lb 6 oz BMI 33.0 BP 122/78 Blood Pressure Location Lt brachial Position Sitting Pulse 88 Pulse Source Pulse Oximeter Pulse Oximetry (%) 91 L Oxygen Delivery Method Room Air Intake Visit Reasons: pe Intake Note: Patient is here today for a physical. 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 Accompanied by: Self / Same As Patient Allergies Penicillins [PENICILLINS] Allergy (Intermediate, Verified 01/14/23 13:01) RASH (CHILDHOOD ALLERGY) Medication List - Last Reconciled 01/13/23 by Amari Mckeon PA-C albuterol sulfate 2.5 mg (3 mL) inhalation Q6H PRN 30 days albuterol sulfate 90 mcg/actuation (ProAir HFA) 1 puff PO Q4H PRN buprenorphine-naloxone 8-2 mg (Suboxone) 1 strip sublingual DAILY cane As directed clonazepam 1 mg PO DAILY 30 days clonidine HCl 0.2 mg PO BEDTIME 90 days diclofenac sodium 1% (Voltaren Arthritis Pain) 2 grams topical QID fluoxetine 60 mg (3 x 20 mg) PO DAILY gabapentin 400 mg PO BID 30 days hydrochlorothiazide 12.5 mg PO DAILY 30 days hydroxyzine HCl 25 mg PO BEDTIME 30 days lidocaine 5% 1 patch topical DAILY 30 days methocarbamol 750 mg PO BID PRN 60 days multivitamin 1 tab PO DAILY nebulizers As directed omeprazole 40 mg PO DAILY 90 days trazodone 50 mg PO BEDTIME PRN 90 days umeclidinium-vilanterol 62.5-25 mcg/actuation (Anoro Ellipta) 1 ea PO DAILY vitamin B complex 1 tab PO DAILY Tobacco use date assessed: 09/30/22 HPI pe HPI Details Patient is a 61-year-old female here today for follow-up visit. ?Patient has a past medical history significant for generalized anxiety disorder, chronic lumbar disc disease, polysubstance use disorder, history of pulmonary embolism, COPD /emphysema. . Generalized anxiety disorder:? Continues to speak with a mental health therapist. Has been able to stab it should care within psychiatrist at her Suboxone clinic. ?Continues to suffer with moderate to severe anxiety.? Does use clonazepam on a daily basis.? . Tobacco dependency:? Patient has found very difficult to stop smoking.? Has nicotine patches at home though fails to use them.? She is planning in near future to quit completely. .. Alcohol use disorder:? Unfortunately has relapsed and continues drinking.? Has not established any 12 step program at this time and strongly advised to do so. .. Opiate dependency:? Continues on Suboxone through a Suboxone clinic locally.? She does report she has been sober from all street narcotics over the last 3 months as well. .. Pulmonary embolism:? Was found to have Subsegmental pulmonary emboli in the setting of having COVID in February of 2022.? Was placed on Eliquis for 6 months time due to the presumptive provoked PE. Currently has been 6 months and will take patient off of Eliquis. .. Lumbar spine disc disease: She has establish care with the [facility] and is due for surgery in February of 2023 to repair her lumbar disc. She continues to be in a fair amount of pain. She reports diclofenac has been helpful. Using lidocaine patches as well. For now will continue with her Suboxone, muscle relaxer and gabapentin 800mg/ day for pain control.? Advised on trying to be as physically active as possible and reduce her smoking. ?? .. Colon cancer screening: Colonoscopy done in 2019 polyp found tubular adenoma repeat 5 years Mammogram: Needs mammogram Vaccines: Up-to-date with COVID vaccine, pneumonia vaccine, tetanus vaccine, needs Shingles vaccine. [facility] Medical History Acute anxiety Depression Ganglion cyst GERD (gastroesophageal reflux disease) Insomnia Obese Opioid abuse Otitis externa RUQ abdominal pain SARS-CoV-2 positive Tubular adenoma of colon Surgical History History of esophagogastroduodenoscopy (EGD) Hx of colonoscopy Previous back surgery Family History Father Alzheimer disease Mother Stroke Brother Esophageal cancer Other Mental problem Substance abuse Social History (Updated 01/14/23 @ 13:03 by IVON Martinez) Household Members: Significant Other Household Members Other:: 1 Housing: Apartment Are you a primary clinical care coordinator to a significant other at home: No Do you presently have visiting nurse or other home services: No Alcohol intake: current Alcohol intake frequency: former alcohol drinker Alcohol type: hard liquor Patient Tobacco Use Status: Current everyday Tobacco user Tobacco use type: Cigarette Cigarettes Per Day: 10 Years Smoked: 40 e-Cigarette/Vaping Use: Former Use Second Hand Smoke Exposure: Yes Substance Use Type: Crack/Cocaine Advance Directives Date on File: 03/17/22 service: No Current occupational status: employed 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 Dannie Sandoval, Kathryn Bryant, Felipe Paulson and colleagues, with an educational rupal from [employer]. Review of Systems Const Denies body aches, Denies chills, Denies excessive sweating, Denies fatigue, Denies fever(s) and Denies headache(s) Eyes Denies blurry vision ENT Denies dysphagia, Denies vertigo, Denies dizziness, Denies headache(s), Denies hearing loss and Denies tinnitus Card Denies chest pain, Denies chest pain with activity, Denies syncope, Denies irregular heart rhythm and Denies dyspnea Resp Denies chest congestion, Denies cough, Denies hemoptysis, Denies dyspnea and Denies wheezing GI Denies abdominal pain, Denies melena, Denies hematochezia, Denies coffee ground emesis, Denies dysphagia, Denies diarrhea, Denies nausea and Denies vomiting Denies urinary frequency, Denies dysuria, Denies urinary hesitancy and Denies urinary urgency Musc Denies arthralgias, Denies limited range of motion, Denies muscle cramps and Denies muscle weakness Skin/Breast Denies rash and Denies skin ulcer Neuro Denies Abnormal speech present, Denies confusion, Denies vertigo, Denies dizziness, Denies syncope, Denies headache(s), Denies memory loss and Denies seizure-like activity Psych Denies anxiety, Denies confusion, Denies depression, Denies memory loss, Denies panic attacks and Denies paranoia Endo Denies excessive sweating, Denies fatigue, Denies flushing, Denies polydipsia and Denies polyuria Aller/Immun Denies wheezing Physical exam (Primary Care) Vital Signs: Last Vital Signs Pulse 88 01/13/23 11:11 BP 122/78 01/13/23 11:11 Pulse Ox 91 L 01/13/23 11:11 Oxygen Delivery Method Room Air 01/13/23 11:11 BMI result Body Mass Index 33.0 BMI Assessment/Plan discussion: High Tobacco/Smoking Status: Tobacco use Status Tobacco use date assessed 09/30/22 01/13/23 11:12 Patient Tobacco Use Status Current everyday Tobacco 01/13/23 11:36 Tobacco use type Cigarette 01/13/23 11:36 e-Cigarette/Vaping Use Former Use 01/13/23 11:36 Thrive Assessment: Date of Thrive Assessment Date Thrive assessed 09/30/22 01/13/23 11:12 Const Other: Obese General: cooperative, comfortable, no acute distress, alert and awake; No confusion Orientation/consciousness: oriented to person, oriented to place, patient orie nted x3 and No confusion HENMT Head: Yes normocephalic Ears: external ears normal and TM's normal bilaterally Face and sinus: No sinus tenderness Mouth: Normal oral and palatal mucosa present and tongue normal Teeth and gingiva: dentition normal and gingiva normal Throat: Yes posterior oropharynx normal, Yes tonsils normal and Yes uvula midline Eyes Conjunctivae: conjunctivae normal Sclerae: sclerae normal Pupils: Equal, round and reactive pupils present EOM: EOMs intact bilaterally Direct Ophthalmoscopy: No no photophobia Neck Neck: Yes no lymphadenopathy, No tender and Yes no JVD Thyroid: Thyroid normal Carotids: no bruits Chest Chest palpation & inspection: no tenderness Resp Effort & Inspection: normal respiratory effort, no audible wheezes, not labored and no stridor Auscultation: no crackles, no rales, no rhonchi and no wheezes Cardio Jugular venous distension: no JVD Rate: regular rate, not bradycardic and not tachycardic Rhythm: regular rhythm Bruits: no carotid bruits Peripheral pulses: Peripheral pulses 2+ throughout GI Inspection: Yes normal to inspection, No abdominal wall ecchymosis and No visible herniation Palpation (GI): Soft to palpation, nontender, no guarding, not rigid and No hepatosplenomegaly present Auscultation: normoactive bowel sounds General: Yes no CVA tenderness Back/Spine/Pelvis Other: LIMITED RANGE OF MOTION OF THE LUMBAR SPINE DUE TO PAIN AND STIFFNESS, AMBULATING WITH AN ANTALGIC GAIT AND CANE FOR ASSISTANCE. Back: no CVA tenderness and No back tenderness Cervical Spine: cervical ROM normal Thoracic/Lumbar Spine: thoracic and lumbar spine normal to inspection, straight leg raise negative bilaterally, No thoraco-lumbar ROM limited and No lumbar spinal tenderness Skin Lesions: no lesions Rashes: no rashes Wounds: no wounds Neuro General: oriented to person, oriented to place, patient oriented x3, CN's II-XI intact bilaterally and No confusion Cranial nerves: Yes Equal, round and reactive pupils present and Yes Normal accommodation reflex present Cognition (Neuro): normal cognition Speech: No Abnormal speech present Gait exam (Neuro): Normal gait present Motor exam (neuro): 5/5 motor strength present throughout Extrem Right upper extremity: full ROM; no cyanosis Left upper extremity: full ROM; no cyanosis Right lower extremity: no edema Left lower extremity: no edema Psych Appearance: grossly normal Mental Status: mental status grossly normal Affect: normal affect Attitude: cooperative Thought process: Normal thought process present Assessment and Plan Assessment & Plan (1) Annual physical exam: Code(s): Z00.00 - Encounter for general adult medical examination without abnormal findings (2) HTN (hypertension): Code(s): I10 - Essential (primary) hypertension Qualifiers: Hypertension type: primary hypertension Qualified Code(s): I10 - Essential (primary) hypertension Plan: Patient's blood pressure acceptable today in office. Will continue current dose of hydrochlorothiazide with goal blood pressure to remain below 140/90 (3) Pulmonary embolism: Code(s): I26.99 - Other pulmonary embolism without acute cor pulmonale Qualifiers: Pulmonary embolism type: single subsegmental (without acute cor pulmonale) Qualified Code(s): I26.93 - Single subsegmental pulmonary embolism without acute cor pulmonale Plan: Had pulmonary embolism in the setting of COVID pneumonia. Was on 6 months of anticoagulation and now has discontinued. Reports her breathing has been stable and not had to use her nebulizer treatments. (4) Tobacco dependence: Code(s): F17.200 - Nicotine dependence, unspecified, uncomplicated Plan: Unfortunately patient still smokes a pack a cigarettes per day and does understand she needs to quit smoking in order to be candidate for back surgery. She plans on quitting in near future cold turkey (5) Lumbar post-laminectomy syndrome: Code(s): M96.1 - Postlaminectomy syndrome, not elsewhere classified Plan: As per HPI patient is due for lumbar spine surgery with [facility] in February 2023. She does understand she needs to stop smoking. (6) PTSD (post-traumatic stress disorder): Code(s): F43.10 - Post-traumatic stress disorder, unspecified Plan: Continues to suffer from PTSD disorder thus she talks to a mental therapist and has establish care with a psychiatrist. Continues on fairly high dose of SSRI therapy, clonazepam and clonidine. (7) Obese: Code(s): E66.9 - Obesity, unspecified Qualifiers: Body mass index: BMI 33.0-33.9 Obesity classification: adult class 1 (BMI 30 - 34.9) Obesity type: due to excess calories Serious obesity comorbidity presence: with serious comorbidity Qualified Code(s): E66.09 - Other obesity due to excess calories; Z68.33 - Body mass index [BMI] 33.0-33.9, adult Plan: Patient does understand her BMI is over 30 will try to work on being more physically active and adapt to better eating habits to reduce her weight (8) FOREIGN (generalized anxiety disorder): Code(s): F41.1 - Generalized anxiety disorder Plan: Patient continues to suffer with anxiety though has been fairly stable over the last several months since being sober from alcohol. Continues on mental health medications such as fluoxetine and clonazepam. Has establish care with a psychiatrist at her Suboxone clinic. (9) Breast cancer screening: Code(s): Z12.39 - Encounter for other screening for malignant neoplasm of breast Qualifiers: Breast cancer screening modality: mammogram Qualified Code(s): Z12.31 - Encounter for screening mammogram for malignant neoplasm of breast Plan: Needs mammogram (10) Opiate dependence: Code(s): F11.20 - Opioid dependence, uncomplicated Qualifiers: Substance use status: uncomplicated Qualified Code(s): F11.20 - Opioid dependence, uncomplicated Plan: Patient continues on Suboxone through a Suboxone clinic. Has establish care with a mental therapist and psychiatrist recently. She feels stable on current dose of Suboxone without cravings. (11) Alcohol use disorder, mild, in early remission: Code(s): F10.11 - Alcohol abuse, in remission Plan: Patient reports she has been sober from alcohol since June of 2022. I c ongratulated her on this. She continues to want to stay sober. Orders: Orders MM screening mammo BI Today Z12.31 - Encounter for screening mammogram for malignant neoplasm of breast Medications: New diclofenac sodium 75 mg PO BID PRN 60 tabs 1RF pain 30 days M96.1 - Postlaminectomy syndrome, not elsewhere classified Coding Level of Care Code Est Pt Prev Care 40-64y(92770) Diagnoses Annual physical exam Z00.00 HTN (hypertension) I10 Hypertension type: primary hypertension Pulmonary embolism I26.93 Pulmonary embolism type: single subsegmental (without acute cor pulmonale) Tobacco dependence F17.200 Lumbar post-laminectomy syndrome M96.1 PTSD (post-traumatic stress disorder) F43.10 Obese E66.09; Z68.33 Body mass index: BMI 33.0-33.9 Obesity classification: adult class 1 (BMI 30 - 34.9) Obesity type: due to excess calories Serious obesity comorbidity presence: with serious comorbidity FOREIGN (generalized anxiety disorder) F41.1 Breast cancer screening Z12.31 Breast cancer screening modality: mammogram Opiate dependence F11.20 Substance use status: uncomplicated Alcohol use disorder, mild, in early remission F10.11
== END 2023-01-13 11:50 | disposition home or self-care (01) ==
PROVIDERS: PCP Physician Assistant; Visit Provider Physician Assistant
DX: Z00.00 Encounter for general adult medical examination without abnormal findings (principal); I10 Essential (primary) hypertension; I26.93 Single subsegmental thrombotic pulmonary embolism without acute cor pulmonale; F17.210 Nicotine dependence, cigarettes, uncomplicated; M96.1 Postlaminectomy syndrome, not elsewhere classified; F43.10 Post-traumatic stress disorder, unspecified; E66.09 Other obesity due to excess calories; Z68.33 Body mass index [BMI] 33.0-33.9, adult; F41.1 Generalized anxiety disorder; F11.20 Opioid dependence, uncomplicated; F10.11 Alcohol abuse, in remission
CPT/HCPCS: 99396

== ENCOUNTER 2023-01-14 12:49 | Outpatient (AMB) | payer OTHER, SELFPAY ==
[2023-01-14 12:57] VITALS: BP 137/72; PULSE 67; O2SAT 89; BMI 32.9
--- NOTE | 2023-01-14 12:57 | A.OFFVIS_ITS ---
Intake Vital Signs 01/14/23 12:57 Height 5 ft 4 in Weight 191 lb 12.835 oz BMI 32.9 BP 137/72 Blood Pressure Location Lt brachial Position Sitting Pulse 67 Pulse Source Doppler Pulse Oximetry (%) 89 L Oxygen Delivery Method Room Air Intake Visit Reasons: Shortness of breath Allergies Penicillins [PENICILLINS] Allergy (Intermediate, Verified 01/14/23 13:01) RASH (CHILDHOOD ALLERGY) HPI Shortness of breath HPI Details 62-year-old lady, active 40+ pack-year smoker, followed for underlying moderate emphysema without fixed obstruction.? Patient continues on Anoro and albuterol MDI with reasonable control of her underlying symptoms.? Her apixaban was stopped 6 months after provoked pulmonary embolism by her primary care. Patient is also following with Neurosurgery for possible back procedure. She denies any recent exacerbations. [facility] Medical History (Updated 01/14/23 @ 13:23 by Ced Solis MD) Acute anxiety Depression Ganglion cyst GERD (gastroesophageal reflux disease) Insomnia Obese Opioid abuse Otitis externa RUQ abdominal pain SARS-CoV-2 positive Tubular adenoma of colon Surgical History History of esophagogastroduodenoscopy (EGD) Hx of colonoscopy Previous back surgery Family History Father Alzheimer disease Mother Stroke Brother Esophageal cancer Other Mental problem Substance abuse Social History (Updated 01/14/23 @ 13:03 by IVON Martinez) Household Members: Significant Other Household Members Other:: 1 Housing: Apartment Are you a primary rehab care assistant to a significant other at home: No Do you presently have visiting nurse or other home services: No Alcohol intake: current Alcohol intake frequency: former alcohol drinker Alcohol type: hard liquor Patient Tobacco Use Status: Current everyday Tobacco user Tobacco use type: Cigarette Cigarettes Per Day: 10 Years Smoked: 40 e-Cigarette/Vaping Use: Former Use Second Hand Smoke Exposure: Yes Substance Use Type: Crack/Cocaine Advance Directives Date on File: 03/17/22 service: No Current occupational status: employed 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[employer], 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 Sexual orientation: Straight/Heterosexual Cognitive needs: Yes (cane) Hearing needs: No Vision needs: Yes (Glasses) Review of Systems Const Denies daytime sleepiness, Denies excessive sweating, Denies fatigue, Denies fever(s), Denies lethargy, Denies malaise, Denies night sweats, Denies snoring and Denies weight loss Eyes Denies blurry vision and Denies itchy eyes ENT Denies nasal congestion, Denies post nasal drip, Denies sinus pain, Denies sinus pressure and Denies other ( Thrush) Card Denies chest pain, Denies pedal edema, Denies dyspnea, Denies orthopnea and Denies paroxysmal nocturnal dyspnea Resp Denies cough, Denies hemoptysis, Denies excessive phlegm production, Denies dyspnea, Denies snoring and Denies wheezing GI Denies abdominal pain and Denies heartburn Musc Denies myalgias, Denies arthralgias and Denies joint swelling Skin/Breast Denies rash Neuro Denies memory loss and Denies seizure-like activity Psych Denies abnormal sleep pattern, Denies anxiety and Denies memory loss Endo Denies excessive sweating, Denies fatigue and Denies heat intolerance Rizwan/Lymph Denies easy bruising Aller/Immun Denies itchy eyes, Denies seasonal rhinorrhea and Denies wheezing Physical Exam Vital Signs: Last Vital Signs Pulse 67 01/14/23 12:57 BP 137/72 01/14/23 12:57 Pulse Ox 89 L 01/14/23 12:57 Oxygen Delivery Method Room Air 01/14/23 12:57 BMI result Body Mass Index 32.9 Const General: no acute distress and alert Nutritional Appearance: not obese Orientation/consciousness: Other orientation findings ( oriented) HEENT Head: Yes atraumatic Eyes General: appearance normal, both eyes and all related structures Sclerae: sclerae normal EOM: EOMs intact bilaterally Neck Neck: Yes supple Lymphatic: no lymphadenopathy noted Resp Effort & Inspection: normal respiratory effort and no use of accessory muscles Auscultation: clear to auscultation bilaterally Cardio Rate: regular rate Rhythm: regular rhythm Heart sounds: no gallops, no murmurs and no rubs Skin General skin exam: other ( warm) Extrem General: No clubbing, No cyanosis and No edema Assessment & Plan Assessment & Plan (1) Pulmonary nodules: Code(s): R91.8 - Other nonspecific abnormal finding of lung field Plan: Will obtain CT chest for further evaluation. (2) Pulmonary emphysema: Code(s): J43.9 - Emphysema, unspecified Plan: Well controlled on current regimen of Anoro, albuterol MDI/nebs. Continue current regimen. Will obtain full PFT. Orders: Orders CT chest wo IV con Today R91.8 - Other nonspecific abnormal finding of lung field PFT pulmonary function test Today J43.9 - Emphysema, unspecified Quality Reporting (2019) Adult ([facility] ) Smoking risk assessment performed?: Yes Patient Tobacco Use Status: Current everyday Tobacco user Coding Level of Care Code Est Pt Level 4 (06874) Diagnoses Pulmonary nodules R91.8 Pulmonary emphysema J43.9
== END 2023-01-14 13:11 | disposition home or self-care (01) ==
PROVIDERS: PCP Physician Assistant; Visit Provider Internal Medicine Pulmonary Disease
DX: R91.8 Other nonspecific abnormal finding of lung field (principal); J43.9 Emphysema, unspecified
CPT/HCPCS: 99214

== ENCOUNTER → 2023-01-14 12:49 | Outpatient (BNVA) | payer OTHER, SELFPAY | PROVIDERS: PCP Physician Assistant; Visit Provider Internal Medicine Pulmonary Disease | DX: J43.9 Emphysema, unspecified (principal); R91.8 Other nonspecific abnormal finding of lung field | CPT/HCPCS: 99212 ==

== ENCOUNTER 2023-02-19 09:35 | Outpatient (REF) | payer OTHER, SELFPAY ==
--- NOTE | ~2023-02-19 | CT_ITS ---
EXAMINATION: CT CHEST WITHOUT CONTRAST CLINICAL INFORMATION: Question pulmonary nodule. COMPARISON: CTA chest dated 03/13/2022. TECHNIQUE: Multidetector volumetric CT imaging of the chest was done. Axial MIP volume rendering provided. Sagittal and coronal reformatted images were obtained. This CT examination was performed using dose optimization techniques as appropriate, variously including the following: *Automated exposure control *Adjustment of mA and/or kV according to patient size (this includes techniques or standardized protocols for targeted exams where dose is matched to indication/reason for exam; i.e. extremities or head) *Use of iterative reconstruction technique DLP: 209 mGy-cm FINDINGS: TREASURY REPRESENTATIVE: The lungs are symmetrically well-expanded and grossly clear. There is mild bibasilar linear atelectasis. LUNGS: There are several bilateral scattered benign, calcified granulomas. Abutting the left major fissure (5:250), an 8 mm benign pleural-based lymph node is seen. No noncalcified parenchymal nodule, mass or infiltrate is seen. Again, there is a mosaic attenuation pattern, and mild small airway thickening is seen. There is mild paraseptal emphysematous change. There are bibasilar scattered foci of minor scar/subsegmental atelectasis, without associated focal airway obstruction. The central airways appear patent. In the precarinal region (3:24), a 2.2 x 1.4 cm lymph node is seen. This is stable from 03/13/2022. Smaller noncalcified and calcified mediastinal lymph nodes are seen. There is no definite hilar lymphadenopathy. MEDIASTINUM: The thyroid is unremarkable. There is no thoracic aortic aneurysm. There are atherosclerotic calcifications of the great vessel origins and thoracic aorta. No mediastinal or hilar lymphadenopathy is seen. CORONARY ARTERY CALCIFICATION: None visualized on this study. PLEURA: There is no pleural effusion. No pleural mass or thickening. AXILLA: No lymphadenopathy. UPPER ABDOMEN: Unremarkable. OSSEOUS STRUCTURES: There is multi-level thoracic degenerative disc disease and spondylosis. Degenerative disc disease is most pronounced at T9-T10 and T11-T12, with vacuum disc phenomenon. No acute or aggressive osseous finding is noted. CT/CT chest wo IV con IMPRESSION: 1. There is evidence of chronic granulomatous disease. 2. No noncalcified nodule, mass, infiltrate or groundglass opacity is seen. 3. There is mild paraseptal emphysematous change. 4. There is a mosaic attenuation pattern and small airway thickening, together suggesting small airways disease due to an infectious or inflammatory etiology. 5. There is mild bibasilar linear atelectasis, without associated focal airway obstruction. 6. There is a stable enlarged precarinal lymph node, for which continued attention on imaging follow-up is recommended. There are further nonpathologically enlarged noncalcified and calcified mediastinal lymph nodes. There is no pleural effusion. 7. There are degenerative changes of the thoracic spine. No acute or aggressive osseous finding is noted. Fleischner guidelines were followed.
== END 2023-02-19 09:36 | disposition home or self-care (01) ==
LOC: HO.CT 09:35
PROVIDERS: PCP Physician Assistant; Visit Provider Internal Medicine Pulmonary Disease
DX: R91.8 Other nonspecific abnormal finding of lung field (principal)
CPT/HCPCS: 71250

== ENCOUNTER 2023-02-25 11:21 | Outpatient (REF) | payer OTHER, SELFPAY ==
--- NOTE | ~2023-02-25 | MM_ITS ---
EXAMINATION: MM SCREENING DIGITAL BREAST TOMOSYNTHESIS, BILATERAL CLINICAL INFORMATION: Screening. Asymptomatic. COMPARISON: Mammography: There are no prior mammograms for comparison. TECHNIQUE: Digital breast tomosynthesis is performed in both the craniocaudal and mediolateral oblique views along with computer-aided detection (CAD). Synthesized 2D images are generated from the tomosynthesis. FINDINGS: There are scattered areas of fibroglandular density (ACR BI-RADS breast composition Category b). There are no significant masses, abnormal calcifications, or other abnormalities. MM/MM tomosynthesis screening BI IMPRESSION: No mammographic evidence of malignancy. ASSESSMENT: BI-RADS BI-RADS 1 - Negative RECOMMENDATION: Routine annual mammography screening. 1 year F/U This examination should not preclude the clinical evaluation of a suspicious palpable abnormality. This patient's information was entered into a reminder system with a target due date for their next mammogram.
== END 2023-02-25 11:22 | disposition home or self-care (01) ==
LOC: HO.MAMMO 11:21
PROVIDERS: PCP Physician Assistant; Visit Provider Physician Assistant
DX: Z12.31 Encounter for screening mammogram for malignant neoplasm of breast (principal)
CPT/HCPCS: 77063; 77067

== ENCOUNTER → 2023-02-25 11:23 | Outpatient (BNV) | payer OTHER, SELFPAY | PROVIDERS: PCP Physician Assistant; Visit Provider Radiology Diagnostic Radiology | DX: Z12.31 Encounter for screening mammogram for malignant neoplasm of breast (principal) | CPT/HCPCS: 77063; 77067 ==

== ENCOUNTER 2023-04-21 13:53 | Outpatient (AMB) | payer OTHER, SELFPAY ==
[2023-04-21 14:12] VITALS: BP 150/82; PULSE 75; O2SAT 98; BMI 33.7
--- NOTE | 2023-04-21 14:12 | MHC.PC.OV ---
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 Required: No Accompanied by: Self / Same As Patient Allergies Penicillins [PENICILLINS] Allergy (Intermediate, Verified 04/21/23 14:57) RASH (CHILDHOOD ALLERGY) Medication List - Last Reconciled 04/21/23 by Amari Mckeon PA-C albuterol sulfate 2.5 mg (3 mL) inhalation Q6H PRN 30 days albuterol sulfate 90 mcg/actuation (ProAir HFA) 1 puff PO Q4H PRN buprenorphine-naloxone 8-2 mg (Suboxone) 1 strip sublingual DAILY cane As directed clonazepam 1 mg PO DAILY 30 days clonidine HCl 0.2 mg PO BEDTIME 90 days diclofenac sodium 1% (Voltaren Arthritis Pain) 2 grams topical QID diclofenac sodium 75 mg PO BID PRN 30 days fluoxetine 60 mg (3 x 20 mg) PO DAILY gabapentin 400 mg PO BID 30 days hydrochlorothiazide 12.5 mg PO DAILY 30 days hydroxyzine HCl 25 mg PO BEDTIME 30 days lidocaine 5% 1 patch topical DAILY 30 days methocarbamol 750 mg PO BID PRN 60 days multivitamin 1 tab PO DAILY nebulizers As directed omeprazole 40 mg PO DAILY 90 days trazodone 50 mg PO BEDTIME PRN 90 days umeclidinium-vilanterol 62.5-25 mcg/actuation (Anoro Ellipta) 1 ea PO DAILY vitamin B complex 1 tab PO DAILY Tobacco use date assessed: 09/30/22 HPI F/U-HTN/FOREIGN HPI Details Patient is a [id number] female here today for follow-up visit. ?Patient has a past medical history significant for generalized anxiety disorder, chronic lumbar disc disease, polysubstance use disorder, history of pulmonary embolism, COPD /emphysema. Concerns--> having trouble concentrating, she is not retired from work she has not been able to pass tests for her employment. She reports her family members have noticed that she has a lot of difficulty with concentrating and staying on tasks. . Generalized anxiety disorder:? Continues to speak with a mental health therapist. Has been able to stab it should care within psychiatrist at her Suboxone clinic. ?Continues to suffer with moderate to severe anxiety.? Does use clonazepam on a daily basis.? . Tobacco dependency:? Patient has found very difficult to stop smoking. Has not been able to have her back surgically fix due to continued smoking.? Has nicotine patches at home though fails to use them.? She plans on quitting on May 24. .. 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 Does use a maintenance inhaler and a p.r.n. use albuterol inhaler. She still does have cough and some shortness of breath at times. She admits to not regularly using her nebulizer. .. Alcohol use disorder(currently in remission) has been sober now over the last year, goes to 12 step meetings .. Opiate dependency:? Continues on Suboxone through a Suboxone clinic locally.? She does report she has been sober from all street narcotics over the last 3 months as well. .. Pulmonary embolism:? Was found to have Subsegmental pulmonary emboli in the setting of having COVID in February of 2022.? Was placed on Eliquis for 6 months time due to the presumptive provoked PE. She is now off of Eliquis .. Lumbar spine disc disease: She has establish care with the [facility] and is anticipating surgery in her lumbar spine though due to her continued smoking this has been put hold. She does use methocarbamol and gabapentin, Suboxone with only minimal relief of her lumbar spine pain.. She continues to be in a fair amount of pain. She reports diclofenac has been helpful. Using lidocaine patches as well. ? [facility] Medical History SARS-CoV-2 positive Opioid abuse Ganglion cyst Obese Tubular adenoma of colon Otitis externa RUQ abdominal pain GERD (gastroesophageal reflux disease) Acute anxiety Depression Insomnia Surgical History History of esophagogastroduodenoscopy (EGD) Hx of colonoscopy Previous back surgery Family History Father Alzheimer disease Mother Stroke Brother Esophageal cancer Other Mental problem Substance abuse Social History Household Members: Significant Other Household Members Other:: 1 Housing: Apartment Are you a primary care consultant to a significant other at home: No Do you presently have visiting nurse or other home services: No Alcohol intake: current Alcohol intake frequency: former alcohol drinker Alcohol type: hard liquor Patient Tobacco Use Status: Current everyday Tobacco user Tobacco use type: Cigarette Cigarettes Per Day: 10 Years Smoked: 40 e-Cigarette/Vaping Use: Former Use Second Hand Smoke Exposure: Yes Substance Use Type: Crack/Cocaine Advance Directives Date on File: 03/17/22 service: No Current occupational status: employed 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 Dannie Sandoval, Kathryn Bryant, Felipe Paulson and colleagues, with an educational rupal from [employer]. Review of Systems Const Denies headache(s) Eyes Denies loss of vision ENT Denies vertigo, Denies dizziness, Denies headache(s) and Denies sore throat Card Denies chest pain, Denies leg edema and Denies lightheadedness Resp Denies cough, Denies hemoptysis and Denies wheezing GI Denies abdominal pain, Denies melena, Denies constipation, Denies diarrhea and Denies vomiting Denies urinary frequency, Denies dysuria and Denies urinary urgency Musc Denies arthralgias, Denies joint swelling, Denies numbness and Denies tingling Neuro Denies Abnormal speech present, Denies behavioral changes, Denies vertigo, Denies dizziness, Denies headache(s), Denies loss of vision, Denies memory loss, Denies numbness and Denies tingling Psych Denies anxiety, Denies behavioral changes, Denies depression, Denies memory loss and Denies panic attacks Rizwan/Lymph Denies easy bleeding and Denies easy bruising Aller/Immun Denies wheezing Physical exam (Primary Care) Vital Signs: Last Vital Signs Pulse 75 04/21/23 14:12 BP 140/80 H 04/21/23 15:12 Pulse Ox 98 04/21/23 14:12 Oxygen Delivery Method Room Air 04/21/23 14:12 BMI result Body Mass Index 33.7 Tobacco/Smoking Status: Tobacco use Status Tobacco use date assessed 09/30/22 04/21/23 14:13 Patient Tobacco Use Status Current everyday Tobacco 04/21/23 14:13 Tobacco use type Cigarette 04/21/23 14:13 e-Cigarette/Vaping Use Former Use 04/21/23 14:13 Thrive Assessment: Date of Thrive Assessment Date Thrive assessed 09/30/22 04/21/23 14:13 Const General: healthy appearing, no acute distress, alert and awake Nutritional Appearance: well nourished Orientation/consciousness: oriented to person, oriented to place and oriented to time HENMT Ears: TM's normal bilaterally General nose exam: Normal nasal mucous membranes and turbinates present Eyes Conjunctivae: conjunctivae normal Sclerae: sclerae normal Pupils: Equal, round and reactive pupils present Neck Neck: Yes no lymphadenopathy and Yes no JVD Thyroid: Thyroid normal Carotids: no bruits Resp Effort & Inspection: normal respiratory effort and not tachypneic Auscultation: no crackles, no rales, no rhonchi and no wheezes Cardio Rate: regular rate Rhythm: regular rhythm Heart sounds: no murmurs and normal S1 and S2 GI Palpation (GI): Soft to palpation, nontender, no hepatomegaly and no splenomegaly Auscultation: normal bowel sounds Skin General skin exam: no rashes or lesions noted and dry skin Neuro General: oriented to person, oriented to place and oriented to time Cranial nerves: Yes Equal, round and reactive pupils present Speech: No Abnormal speech present Gait exam (Neuro): Normal gait present Motor exam (neuro): no tremor noted Extrem Right upper extremity: full ROM Left upper extremity: full ROM Right lower extremity: full ROM; no edema Left lower extremity: full ROM; no edema Psych Mental Status: mental status grossly normal Speech and movement: Normal speech and movement present Affect: normal affect Attitude: cooperative Thought process: Normal thought process present Results AMB Hemoglobin A1c AMB Hemoglobin A1c 5.8 % Last Edit by NAJMA Sanchez on 04/21/23 14:33 Results Reviewed Results Reviewed: Laboratory Last Values Hgb A1c (Clinic) 5.8 % (4.0-6.0) 04/21/23 14:33 Assessment and Plan Assessment & Plan (1) HTN (hypertension): Code(s): I10 - Essential (primary) hypertension Qualifiers: Hypertension type: primary hypertension Qualified Code(s): I10 - Essential (primary) hypertension Plan: Patient's blood pressure elevated today in office. Will add on lisinopril for better blood pressure control. Goal blood pressures to be below 140/90. Advised to start monitoring blood pressure at home regularly. (2) Pulmonary embolism: Code(s): I26.99 - Other pulmonary embolism without acute cor pulmonale Qualifiers: Pulmonary embolism type: single subsegmental (without acute cor pulmonale) Qualified Code(s): I26.93 - Single subsegmental pulmonary embolism without acute cor pulmonale Plan: At a pulmonary embolism in the setting of pneumonia due to COVID. Was placed on Eliquis for 6 months time. Now off of Eliquis. (3) Tobacco dependence: Code(s): F17.200 - Nicotine dependence, unspecified, uncomplicated Plan: Unfortunately patient still smokes a pack a cigarettes per day and does understand she needs to quit smoking in order to be candidate for back surgery. She plans on quitting on May 24 (4) Lumbar post-laminectomy syndrome: Code(s): M96.1 - Postlaminectomy syndrome, not elsewhere classified Plan: As per HPI patient is due for lumbar spine surgery with [facility]. Will increase her methocarbamol and gabapentin dose to 800 b.i.d under pain control.. She does understand she needs to stop smoking. (5) PTSD (post-traumatic stress disorder): Code(s): F43.10 - Post-traumatic stress disorder, unspecified Plan: Continues to suffer from PTSD disorder thus she talks to a mental therapist and has establish care with a psychiatrist. Continues on fairly high dose of SSRI therapy, clonazepam and clonidine. (6) Obese: Code(s): E66.9 - Obesity, unspecified Qualifiers: Body mass index: BMI 33.0-33.9 Obesity classification: adult class 1 (BMI 30 - 34.9) Obesity type: due to excess calories Serious obesity comorbidity presence: with serious comorbidity Qualified Code(s): E66.09 - Other obesity due to excess calories; Z68.33 - Body mass index [BMI] 33.0-33.9, adult Plan: Unfortunately continues to gain weight as she has not been able to be physically active due to her lumbar back pain. Patient does understand her BMI is over 30 will try to work on being more physically active and adapt to better eating habits to reduce her weight (7) FOREIGN (generalized anxiety disorder): Code(s): F41.1 - Generalized anxiety disorder Plan: Patient continues to suffer with anxiety though has been fairly stable over the last several months since being sober from alcohol. Continues on mental health medications such as fluoxetine and clonazepam. Has establish care with a psychiatrist at her Suboxone clinic. (8) Opiate dependence: Code(s): F11.20 - Opioid dependence, uncomplicated Qualifiers: Substance use status: uncomplicated Qualified Code(s): F11.20 - Opioid dependence, uncomplicated Plan: Patient continues on Suboxone through a Suboxone clinic. Has establish care with a mental therapist and psychiatrist recently. She feels stable on current dose of Suboxone without cravings. (9) Alcohol use disorder, mild, in early remission: Code(s): F10.11 - Alcohol abuse, in remission Plan: Patient reports she has been sober from alcohol since June of 2022. I congratulated her on this. She continues to want to stay sober. (10) ADD (attention deficit disorder): Code(s): F98.8 - Other specified behavioral and emotional disorders with onset usually occurring in childhood and adolescence Qualifiers: Hyperactivity presence: absent Qualified Code(s): F98.8 - Other specified behavioral and emotional disorders with onset usually occurring in childhood and adolescence Plan: Patient does exhibit signs attention deficit disorder. She does report having family members with same diagnosis. We did discuss being treated for ADD the help her with her attention and focus. Now currently not working as she took an early longterm. We did discuss non the medication sepsis Strattera and Wellbutrin. Unfortunately there is drug drug interactions with medications he is already taking. He is willing to try Vyvanse in hopes to help her with staying focused on daily tasks Orders: Orders AMB Hemoglobin A1c 04/21/23 Z13.1 - Encounter for screening for diabetes mellitus Medications: New lisdexamfetamine (Vyvanse) Partial Fill upon patient request. 30 mg PO DAILY 28 days 28 caps 0RF F98.8 - Other specified behavioral and emotional disorders with onset usually occurring in childhood and adolescence hydroxyzine HCl 50 mg PO BEDTIME 30 days 30 tabs 3RF F41.1 - Generalized anxiety disorder gabapentin 800 mg PO BID 30 days 60 tabs 3RF M54.16 - Radiculopathy, lumbar region lisinopril-hydrochlorothiazide 10-12.5 mg 1 tab PO DAILY 90 days 90 tabs 1RF I10 - Essential (primary) hypertension Refilled clonazepam 1 mg PO DAILY 30 days 30 tabs 3RF F41.1 - Generalized anxiety disorder Discontinued gabapentin Discontinued Reason: Doctor's Order 400 mg PO BID 30 days 60 caps 6RF M51.9 - Unspecified thoracic, thoracolumbar and lumbosacral intervertebral disc disorder hydrochlorothiazide Discontinued Reason: Doctor's Order 12.5 mg PO DAILY 30 days 30 tabs 3RF F41.1 - Generalized anxiety disorder, I10 - Essential (primary) hypertension hydroxyzine HCl Discontinued Reason: Doctor's Order 25 mg PO BEDTIME 30 days 30 tabs 6RF G47.00 - Insomnia, unspecified Coding Level of Care Code Est Pt Level 4 (76376) Diagnoses Primary hypertension I10 Hypertension type: primary hypertension Single subsegmental pulmonary embolism without acute cor pulmonale I26.93 Pulmonary embolism type: single subsegmental (without acute cor pulmonale) Tobacco dependence F17.200 Lumbar post-laminectomy syndrome M96.1 PTSD (post-traumatic stress disorder) F43.10 Class 1 obesity due to excess calories with serious comorbidity and body mass index (BMI) of 33.0 to 33.9 in adult E66.09; Z68.33 Body mass index: BMI 33.0-33.9 Obesity classification: adult class 1 (BMI 30 - 34.9) Obesity type: due to excess calories Serious obesity comorbidity presence: with serious comorbidity FOREIGN (generalized anxiety disorder) F41.1 Uncomplicated opioid dependence F11.20 Substance use status: uncomplicated Alcohol use disorder, mild, in early remission F10.11 Attention deficit disorder (ADD) without hyperactivity F98.8 Hyperactivity presence: absent
[2023-04-21 15:12] VITALS: BP 140/80
== END 2023-04-21 15:24 | disposition home or self-care (01) ==
PROVIDERS: PCP Physician Assistant; Visit Provider Physician Assistant
DX: Z13.1 Encounter for screening for diabetes mellitus (principal)
CPT/HCPCS: 83036; 99214

== ENCOUNTER 2023-05-25 10:32 | Outpatient (AMB) | payer OTHER, SELFPAY ==
--- NOTE | 2023-05-25 10:37 | MHC.PC.OV ---
Vital Signs 05/25/23 10:38 Height 5 ft 4 in Weight 195 lb BMI 33.5 BP 106/70 Blood Pressure Location Lt brachial Position Sitting Respiration 17 Pulse 80 Intake Visit Reasons: f/u ADHD Sleep Technologist Required: No Accompanied by: Self / Same As Patient Allergies Penicillins [PENICILLINS] Allergy (Intermediate, Verified 05/25/23 10:52) RASH (CHILDHOOD ALLERGY) Medication List - Last Reconciled 05/25/23 by Amari Mckeon PA-C albuterol sulfate 2.5 mg (3 mL) inhalation Q6H PRN 30 days albuterol sulfate 90 mcg/actuation (ProAir HFA) 1 puff PO Q4H PRN buprenorphine-naloxone 8-2 mg (Suboxone) 1 strip sublingual DAILY cane As directed clonazepam 1 mg PO DAILY 30 days clonidine HCl 0.2 mg PO BEDTIME 90 days diclofenac sodium 75 mg PO BID PRN 30 days fluoxetine 60 mg (3 x 20 mg) PO DAILY gabapentin 800 mg PO BID 30 days hydroxyzine HCl 50 mg PO BEDTIME 30 days lidocaine 5% 1 patch topical DAILY 30 days lisdexamfetamine (Vyvanse) 30 mg PO DAILY 28 days lisinopril-hydrochlorothiazide 10-12.5 mg 1 tab PO DAILY 90 days methocarbamol 750 mg PO BID PRN 60 days multivitamin 1 tab PO DAILY nebulizers As directed omeprazole 40 mg PO DAILY 90 days trazodone 50 mg PO BEDTIME PRN 90 days umeclidinium-vilanterol 62.5-25 mcg/actuation (Anoro Ellipta) 1 ea PO DAILY vitamin B complex 1 tab PO DAILY Tobacco use date assessed: 05/25/23 Dental Screening Dental Screen Date: 05/25/23 Did you have a dental visit in the last 12 months?: Yes Did you have a dental problem in the last 6 months where you did not have access to dental care?: No Was dental information given to patient?: Patient has dentist HPI f/u ADHD HPI Details Patient is a 62-year-old female here today for follow-up on her ADD disorder. At last visit we discussed her difficulty with concentrating and staying on tasks and her life. She was willing to start Vyvanse 30 mg. She reports a significant improvement in her attention and focus. Hypertension: Blood pressure much improved since addition of lisinopril. Will continue current dose lisinopril hydrochlorothiazide. . Tobacco dependency: Unfortunately continues to smoke and informs me she will be quitting in the next 2 weeks. [facility] Medical History SARS-CoV-2 positive Opioid abuse Ganglion cyst Obese Tubular adenoma of colon Otitis externa RUQ abdominal pain GERD (gastroesophageal reflux disease) Acute anxiety Depression Insomnia Surgical History History of esophagogastroduodenoscopy (EGD) Hx of colonoscopy Previous back surgery Family History Father Alzheimer disease Mother Stroke Brother Esophageal cancer Other Mental problem Substance abuse Social History Household Members: Significant Other Household Members Other:: 1 Housing: Apartment Are you a primary career specialist to a significant other at home: No Do you presently have visiting nurse or other home services: No Alcohol intake: current Alcohol intake frequency: former alcohol drinker Alcohol type: hard liquor Patient Tobacco Use Status: Current everyday Tobacco user Tobacco use type: Cigarette Cigarettes Per Day: 10 Years Smoked: 40 e-Cigarette/Vaping Use: Former Use Second Hand Smoke Exposure: Yes Substance Use Type: Crack/Cocaine Advance Directives Date on File: 03/17/22 service: No Current occupational status: employed 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 1. Little interest or pleasure in doing things: nearly every day 2. Feeling down, depressed, or hopeless: more than half the days 3. Trouble falling or staying asleep, or sleeping too much: nearly every day 4. Feeling tired or having little energy: more than half the days 5. Poor appetite or overeating: nearly every day 6. Feeling bad about yourself - or that you are a failure or have let yourself or your family down: nearly every day 7. Trouble concentrating on things, such as reading the newspaper or watching television: more than half the days 8. Moving or speaking so slowly that other people could have noticed. Or the opposite - being so fidgety or restless that you have been moving around a lot more than usual: nearly every day 9. Thoughts that you would be better off or of hurting yourself in some way: several days Total score: 22 Depression Screening Interpretation: Positive Depression Screening Follow-up: Existing condition and In treatment Depression Screening Done: Yes 21204 - PHQ-9 Billing: Yes Source: Developed by Drs. Dannie Sandoval, Kathryn Bryant, Felipe Paulson and colleagues, with an educational rupal from [employer]. Thrive Questionnaire Date Thrive assessed: 05/25/23 I am a: Patient What is your living situation today?: I have a steady place to live Within the past 12 months, did the food you bought not last and you didn't have the money to get more?: Never true Within the past 12 months, did you worry whether your food would run out before you got money to buy more?: Never true Do you have trouble paying for medicines?: No Do you have trouble getting transportation to medical appointments?: No Do you have trouble paying your heating and electricity bill?: No Do you have trouble taking care of your child, family member or friend?: No Do you have trouble with day-to-day activities such as bathing, preparing meals, shopping, managing finances, etc.?: No Are you currently unemployed and looking for a job?: No Are you interested in more education?: No Please select the resources that you would like help with: None Currently or been in a relationship where the following occur: no concerns reported AUDIT C Alcohol Use Questionnaire (AUDIT-C) 1. How often do you have a drink containing alcohol?: Never 3. How often do you have six or more drinks on one occasion?: Never Total Score: 0 FOREIGN-7 AMB Questionnaire FOREIGN-7 Date FOREIGN - 7 assessed: 05/25/23 Feeling nervous, anxious, or on edge: 2 = More than half the days Not being able to stop or control worryin = More than half the days Worrying too much about different things: 2 = More than half the days Trouble relaxin = More than half the days Being so restless that it is hard to sit still: 1 = Several days Becoming easily annoyed or irritable: 2 = More than half the days Feeling afraid as if something awful might happen: 1 = Several days Total FOREIGN-7 score (0-4 normal; 5-9 mild; 10-14 moderate; 15-21 severe): 12 Source: Developed by Drs. Dannie Sandoval, Kathryn Bryant, Felipe Paulson and colleagues, with an educational rupal from [employer]. FOREIGN-7 Assessment Billing FOREIGN-7 Assessment Tool: FOREIGN-7 Assessment 99608 Review of Systems Const Denies headache(s) Eyes Denies loss of vision ENT Denies vertigo, Denies dizziness, Denies headache(s) and Denies sore throat Card Denies chest pain, Denies leg edema and Denies lightheadedness Resp Denies cough, Denies hemoptysis and Denies wheezing GI Denies abdominal pain, Denies melena, Denies constipation, Denies diarrhea and Denies vomiting Denies urinary frequency, Denies dysuria and Denies urinary urgency Musc Denies arthralgias, Denies joint swelling, Denies numbness and Denies tingling Neuro Denies Abnormal speech present, Denies behavioral changes, Denies vertigo, Denies dizziness, Denies headache(s), Denies loss of vision, Denies memory loss, Denies numbness and Denies tingling Psych Denies anxiety, Denies behavioral changes, Denies depression, Denies memory loss and Denies panic attacks Rizwan/Lymph Denies easy bleeding and Denies easy bruising Aller/Immun Denies wheezing Physical exam (Primary Care) Vital Signs: Last Vital Signs Pulse 80 05/25/23 10:38 Resp 17 05/25/23 10:38 BP 106/70 05/25/23 10:38 BMI result Body Mass Index 33.5 Tobacco/Smoking Status: Tobacco use Status Tobacco use date assessed 05/25/23 05/25/23 10:50 Patient Tobacco Use Status Current everyday Tobacco 05/25/23 10:48 Tobacco use type Cigarette 05/25/23 10:48 e-Cigarette/Vaping Use Former Use 05/25/23 10:48 PHQ-9: PHQ-9 Score PHQ-9: Total score 22 05/25/23 10:49 Depression Screening Interpretation: Positive Depression Screening Follow-up: Existing condition and In treatment Thrive Assessment: Date of Thrive Assessment Date Thrive assessed 05/25/23 05/25/23 10:48 Currently or been in a relationship where the following occur: no concerns reported Const General: healthy appearing, no acute distress, alert and awake Nutritional Appearance: well nourished Orientation/consciousness: oriented to person, oriented to place and oriented to time HENMT Ears: TM's normal bilaterally General nose exam: Normal nasal mucous membranes and turbinates present Eyes Conjunctivae: conjunctivae normal Sclerae: sclerae normal Pupils: Equal, round and reactive pupils present Neck Neck: Yes no lymphadenopathy and Yes no JVD Thyroid: Thyroid normal Carotids: no bruits Resp Effort & Inspection: normal respiratory effort and not tachypneic Auscultation: no crackles, no rales, no rhonchi and no wheezes Cardio Rate: regular rate Rhythm: regular rhythm Heart sounds: no murmurs and normal S1 and S2 GI Palpation (GI): Soft to palpation, nontender, no hepatomegaly and no splenomegaly Auscultation: normal bowel sounds Skin General skin exam: no rashes or lesions noted and dry skin Neuro General: oriented to person, oriented to place and oriented to time Cranial nerves: Yes Equal, round and reactive pupils present Speech: No Abnormal speech present Gait exam (Neuro): Normal gait present Motor exam (neuro): no tremor noted Extrem Right upper extremity: full ROM Left upper extremity: full ROM Right lower extremity: full ROM; no edema Left lower extremity: full ROM; no edema Psych Mental Status: mental status grossly normal Speech and movement: Normal speech and movement present Affect: normal affect Attitude: cooperative Thought process: Normal thought process present Assessment and Plan Assessment & Plan (1) HTN (hypertension): Code(s): I10 - Essential (primary) hypertension Qualifiers: Hypertension type: primary hypertension Qualified Code(s): I10 - Essential (primary) hypertension Plan: Blood pressure much improved today in office. We recently added lisinopril to her blood pressure med regime. Has not been monitoring blood pressure at home and advised to start doing so with goal blood pressure to be below 140/90 (2) Tobacco dependence: Code(s): F17.200 - Nicotine dependence, unspecified, uncomplicated Plan: Unfortunately patient still smokes a pack a cigarettes per day and does understand she needs to quit smoking in order to be candidate for back surgery. She plans in the immediate near future. (3) ADD (attention deficit disorder): Code(s): F98.8 - Other specified behavioral and emotional disorders with onset usually occurring in childhood and adolescence Qualifiers: Hyperactivity presence: absent Qualified Code(s): F98.8 - Other specified behavioral and emotional disorders with onset usually occurring in childhood and adolescence Plan: Has started Vyvanse 30 mg with significant improvement of for attention focus. Has started doing activities and baking again. She feels very good on current dose of would like to continue medication. Will continue to follow for 3 months to assure effectiveness of medication. (4) MDD (major depressive disorder): Code(s): F32.9 - Major depressive disorder, single episode, unspecified Qualifiers: Major depression recurrence: recurrent Active/Remission status: currently active Major depression episode severity: moderate Qualified Code(s): F33.1 - Major depressive disorder, recurrent, moderate Plan: PHQ-9 score positive for moderate depression which has been existing condition for her. She is in treatment and continues to mental health medications and feels her mental health is fairly stable. Continues to be in pain due to lumbar spine issue which causes her some depression. (5) FOREIGN (generalized anxiety disorder): Code(s): F41.1 - Generalized anxiety disorder Plan: Patient's FOREIGN-7 score positive for moderate anxiety which has been existing condition for her. Continues to on therapy and on medication which has been effective for her. Medications: Changed From lisdexamfetamine (Vyvanse) Partial Fill upon patient request. 30 mg PO DAILY 28 days 28 caps 0RF F98.8 - Other specified behavioral and emotional disorders with onset usually occurring in childhood and adolescence To lisdexamfetamine (Vyvanse) Partial Fill upon patient request. 30 mg PO DAILY 60 days 60 caps 0RF F98.8 - Other specified behavioral and emotional disorders with onset usually occurring in childhood and adolescence Coding Level of Care Code Est Pt Level 4 (86726) Diagnoses Primary hypertension I10 Hypertension type: primary hypertension Tobacco dependence F17.200 Attention deficit disorder (ADD) without hyperactivity F98.8 Hyperactivity presence: absent Moderate episode of recurrent major depressive disorder F33.1 Major depression recurrence: recurrent Active/Remission status: currently active Major depression episode severity: moderate FOREIGN (generalized anxiety disorder) F41.1 Additional Codes FOREIGN-7 Assessment Billing - FOREIGN-7 Assessment Tool: FOREIGN-7 Assessment [id number] ([id number])
[2023-05-25 10:38] VITALS: BP 106/70; PULSE 80; RESP 17; BMI 33.5
== END 2023-05-25 11:04 | disposition home or self-care (01) ==
PROVIDERS: PCP Physician Assistant; Visit Provider Physician Assistant
DX: I10 Essential (primary) hypertension (principal); F33.1 Major depressive disorder, recurrent, moderate; F17.210 Nicotine dependence, cigarettes, uncomplicated; F98.8 Other specified behavioral and emotional disorders with onset usually occurring in childhood and adolescence; F41.1 Generalized anxiety disorder
CPT/HCPCS: 96127; 99214

== ENCOUNTER 2023-07-26 08:46 | Outpatient (REF) | payer OTHER, SELFPAY ==
[2023-07-26 09:23] LABS: Hemoglobin 13.9 g/dl (12.0-16.0); Mean Corpuscular HGB Conc 33.1 g/dl (31.0-35.0); Mean Corpuscular Hemoglobin 28.8 pg (27.0-33.0); Mean Corpuscular Volume 87.1 fL (80.0-98.0); Mean Platelet Volume 9.9 fL (9.4-12.3); Platelet Count 293 X10*3/uL (160-400); Red Blood Count 4.82 X10*6/uL (4.20-5.50)
[2023-07-26 10:07] LABS: Alanine Aminotransferase 11 U/L (0-31); Albumin Level 4.1 g/dL (3.5-5.0); Alkaline Phosphatase 98 U/L (39-117); Anion Gap 13 (12-20); Aspartate Amino Transferase 14 U/L (5-31); Bilirubin Total 0.3 mg/dL (0.0-1.0); Blood Urea Nitrogen 13 mg/dL (9-16); Calcium 9.6 mg/dL (8.4-10.2); Carbon Dioxide 27 mmol/L (22-29); Chloride 101 mmol/L (96-108); Cholesterol 202 mg/dL (<200); Estimated Glomerular Filt Rate > 60; Glucose Fasting 92 mg/dL (60-99); HDL Cholesterol 39 mg/dL (>40); LDL Cholesterol Calculated 145 mg/dL (<100); Potassium 3.9 mmol/L (3.3-5.1); Sodium 137 mmol/L (135-145); Total Protein 7.5 g/dL (6.5-8.0); Triglycerides 93 mg/dL (<150)
[2023-07-26 12:37] LABS: Creatinine Urine 92.75 mg/dL; Microalbum/Creatinine Ratio Ur 5.3 ug/mg cr (<30)
== END 2023-07-26 08:47 | disposition home or self-care (01) ==
LOC: HO.LAB 08:46
PROVIDERS: Visit Provider Physician Assistant
DX: I10 Essential (primary) hypertension (principal)
CPT/HCPCS: 36415; 80053; 80061; 82043; 82570; 85027

== ENCOUNTER 2023-08-06 14:41 | Outpatient (AMB) | payer OTHER, SELFPAY ==
[2023-08-06 14:44] VITALS: BP 122/67; PULSE 85; O2SAT 94; BMI 32.4
--- NOTE | 2023-08-06 14:44 | A.OFFVIS_ITS ---
Intake Vital Signs 08/06/23 14:44 Height 5 ft 4 in Weight 189 lb BMI 32.4 BP 122/67 Blood Pressure Location Rt brachial Position Sitting Pulse 85 Pulse Source Doppler Pulse Oximetry (%) 94 Oxygen Delivery Method Room Air Intake Visit Reasons: pulm nodules Allergies Penicillins [PENICILLINS] Allergy (Intermediate, Verified 08/06/23 14:46) RASH (CHILDHOOD ALLERGY) HPI pulm nodules HPI Details 62-year-old lady, active 40+ pack-year s moker, followed for underlying moderate emphysema without fixed obstruction.? Patient continues on Anoro and albuterol MDI with reasonable control of her underlying symptoms.? Her apixaban was stopped 6 months after provoked pulmonary embolism by her primary care. Patient is also following with Neurosurgery for possible back procedure. She complains of recent acute exacerbation, still symptomatic with wheezing and productive cough. [facility] Medical History SARS-CoV-2 positive Opioid abuse Ganglion cyst Obese Tubular adenoma of colon Otitis externa RUQ abdominal pain GERD (gastroesophageal reflux disease) Acute anxiety Depression Insomnia Surgical History History of esophagogastroduodenoscopy (EGD) Hx of colonoscopy Previous back surgery Family History Father Alzheimer disease Mother Stroke Brother Esophageal cancer Other Mental problem Substance abuse Social History Household Members: Significant Other Household Members Other:: 1 Housing: Apartment Are you a primary care manager cna to a significant other at home: No Do you presently have visiting nurse or other home services: No Alcohol intake: current Alcohol intake frequency: former alcohol drinker Alcohol type: hard liquor Patient Tobacco Use Status: Current everyday Tobacco user Tobacco use type: Cigarette Cigarettes Per Day: 10 Years Smoked: 40 e-Cigarette/Vaping Use: Former Use Second Hand Smoke Exposure: Yes Substance Use Type: Crack/Cocaine Advance Directives Date on File: 03/17/22 service: No Current occupational status: employed 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[employer], 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 Sexual orientation: Straight/Heterosexual Cognitive needs: Yes (cane) Hearing needs: No Vision needs: Yes (Glasses) Review of Systems Const Denies daytime sleepiness, Denies excessive sweating, Denies fatigue, Denies fever(s), Denies lethargy, Denies malaise, Denies night sweats, Denies snoring and Denies weight loss Eyes Denies blurry vision and Denies itchy eyes ENT Denies nasal congestion, Denies post nasal drip, Denies sinus pain, Denies sinus pressure and Denies other ( Thrush) Card Denies chest pain, Denies pedal edema, Denies dyspnea, Denies orthopnea and Denies paroxysmal nocturnal dyspnea Resp Reports cough, Denies hemoptysis, Reports excessive phlegm production, Denies dyspnea, Denies snoring and Reports wheezing GI Denies abdominal pain and Denies heartburn Musc Denies myalgias, Denies arthralgias and Denies joint swelling Skin/Breast Denies rash Neuro Denies memory loss and Denies seizure-like activity Psych Denies abnormal sleep pattern, Denies anxiety and Denies memory loss Endo Denies excessive sweating, Denies fatigue and Denies heat intolerance Rizwan/Lymph Denies easy bruising Aller/Immun Denies itchy eyes, Denies seasonal rhinorrhea and Reports wheezing Physical Exam Vital Signs: Last Vital Signs Pulse 85 08/06/23 14:44 BP 122/67 08/06/23 14:44 Pulse Ox 94 08/06/23 14:44 Oxygen Delivery Method Room Air 08/06/23 14:44 BMI result Body Mass Index 32.4 Const General: no acute distress and alert Nutritional Appearance: not obese Orientation/consciousness: Other orientation findings ( oriented) HEENT Head: Yes atraumatic Eyes General: appearance normal, both eyes and all related structures Sclerae: sclerae normal EOM: EOMs intact bilaterally Neck Neck: Yes supple Lymphatic: no lymphadenopathy noted Resp Effort & Inspection: normal respiratory effort and no use of accessory muscles Auscultation: clear to auscultation bilaterally Cardio Rate: regular rate Rhythm: regular rhythm Heart sounds: no gallops, no murmurs and no rubs Skin General skin exam: other ( warm) Extrem General: No clubbing, No cyanosis and No edema Assessment & Plan Assessment & Plan (1) Pulmonary emphysema: Code(s): J43.9 - Emphysema, unspecified Plan: Baseline controlled on Anoro and albuterol MDI/nebs. Continue current regimen. Now with an acute exacerbation, will treat with a course of azithromycin and prednisone. (2) Pulmonary nodules: Code(s): R91.8 - Other nonspecific abnormal finding of lung field Plan: Results of CT chest reviewed, no recent L at this time. Continue with yearly screening, next in January of 2024. Orders: Orders CT lung screening 02/06/24 Z87.891 - Personal history of nicotine dependence Medications: New prednisone 40 mg (2 x 20 mg) PO DAILY 14 tabs 0RF 7 days azithromycin For 250 mg dose pack: take 500 mg today (day 1), then 250 mg for 4 days (days 2-5) PO 6 tabs 0RF Quality Reporting (2019) Adult ([facility] 138/07/15/68) Smoking risk assessment performed?: Yes Patient Tobacco Use Status: Current everyday Tobacco user Coding Level of Care Code Est Pt Level 4 (06547) Diagnoses Pulmonary emphysema J43.9 Pulmonary nodules R91.8
== END 2023-08-06 15:01 | disposition home or self-care (01) ==
PROVIDERS: PCP Physician Assistant; Visit Provider Internal Medicine Pulmonary Disease
DX: J43.9 Emphysema, unspecified (principal); R91.8 Other nonspecific abnormal finding of lung field
CPT/HCPCS: 99214

== ENCOUNTER → 2023-08-06 14:41 | Outpatient (BNVA) | payer OTHER, SELFPAY | PROVIDERS: PCP Physician Assistant; Visit Provider Internal Medicine Pulmonary Disease | DX: J43.9 Emphysema, unspecified (principal); R91.8 Other nonspecific abnormal finding of lung field; F17.210 Nicotine dependence, cigarettes, uncomplicated | CPT/HCPCS: 99212 ==

== ENCOUNTER 2023-08-25 10:07 | Outpatient (AMB) | payer OTHER, SELFPAY ==
--- NOTE | 2023-08-25 10:16 | MHC.PC.OV ---
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 Accompanied by: Self / Same As Patient Allergies Penicillins [PENICILLINS] Allergy (Intermediate, Verified 08/25/23 10:38) RASH (CHILDHOOD ALLERGY) Medication List - Last Reconciled 08/25/23 by Amari Mckeon PA-C albuterol sulfate 2.5 mg (3 mL) inhalation Q6H PRN 30 days albuterol sulfate 90 mcg/actuation (ProAir HFA) 1 puff PO Q4H PRN buprenorphine-naloxone 8-2 mg (Suboxone) 1 strip sublingual DAILY cane As directed clonazepam 1 mg PO DAILY 30 days clonidine HCl 0.2 mg PO BEDTIME 90 days diclofenac sodium 75 mg PO BID PRN 30 days fluoxetine 60 mg (3 x 20 mg) PO DAILY gabapentin 800 mg PO BID 30 days hydroxyzine HCl 50 mg PO BEDTIME 30 days lidocaine 5% 1 patch topical DAILY 30 days lisinopril-hydrochlorothiazide 10-12.5 mg 1 tab PO DAILY 90 days methocarbamol 750 mg PO BID PRN 60 days methylphenidate HCl ER (Concerta) 36 mg PO DAILY 28 days multivitamin 1 tab PO DAILY nebulizers As directed omeprazole 40 mg PO DAILY 90 days trazodone 50 mg PO BEDTIME PRN 90 days umeclidinium-vilanterol 62.5-25 mcg/actuation (Anoro Ellipta) 1 ea PO DAILY vitamin B complex 1 tab PO DAILY Tobacco use date assessed: 05/25/23 Dental Screening Dental Screen Date: 05/25/23 HPI f/u ADD/ HTN HPI Details Patient is a 62-year-old female here today for follow-up on her ADD disorder. . Concern--> she reports over the last 4 days having left eye visual changes, she reports seeing small circles and is somewhat having issue with visual acuity. She denies anything changing recently. She reports seeing an eye doctor recently in her did not have any significant I issue. Of note did have moderate hypertensive retinopathy in the left eye. Attention deficit disorder: She continues on Concerta which has drastically improved her quality of life. She reports a significant improvement in her attention and focus. .. Anxiety: Reports her anxiety has been not the best controlled, has been working with a mental health therapist. She reports taking more clonazepam then prescribed due to her tremor and issues sleeping. She is now out of clonazepam. Will supplement with propanolol and higher dose of hydroxyzine. Hypertension: Blood pressure much improved since addition of lisinopril. Will continue current dose lisinopril hydrochlorothiazide. . Tobacco dependency: Unfortunately continues to smoke and informs me she will be quitting in the next 2 weeks .. COPD: Continues to follow [facility]. Did have a recent COPD exacerbation was treated with antibiotic and prednisone. She will be doing annual CT scans Laboratory Tests 12/08/21 12/08/21 12/09/21 18:03 18:03 00:14 WBC RBC 4.44 Creatinine 0.66 Fasting Glucose Hgb A1c (Clinic) Cholesterol LDL Cholesterol, C alc Urine Microalbumin Urine Fentanyl Scr een POSITIVE H U Marijuana (THC) Screen POSITIVE H Ethyl Alcohol 108 Anti-Cardiolipin I gG Ab 03/14/22 03/16/22 04/30/22 06:35 06:27 22:00 WBC 12.6 H RBC Creatinine Fasting Glucose 129 H Hgb A1c (Clinic) Cholesterol LDL Cholesterol, C alc Urine Microalbumin Urine Fentanyl Scr een U Marijuana (THC) Screen Ethyl Alcohol Anti-Cardiolipin I gG Ab <2.0 04/21/23 07/26/23 07/26/23 14:33 08:56 08:56 WBC 12.0 H RBC Creatinine 0.64 Fasting Glucose 92 Hgb A1c (Clinic) 5.8 Cholesterol 202 H LDL Cholesterol, C alc 145 H Urine Microalbumin Urine Fentanyl Scr een U Marijuana (THC) Screen Ethyl Alcohol Anti-Cardiolipin I gG Ab 07/26/23 09:00 WBC RBC Creatinine Fasting Glucose Hgb A1c (Clinic) Cholesterol LDL Cholesterol, C alc Urine Microalbumin 5.0 Urine Fentanyl Scr een U Marijuana (THC) Screen Ethyl Alcohol Anti-Cardiolipin I gG Ab [facility] Medical History (Updated 08/25/23 @ 11:08 by Amari Mckeon PA-C) Pulmonary embolism SARS-CoV-2 positive Opioid abuse Ganglion cyst Obese Tubular adenoma of colon Otitis externa RUQ abdominal pain GERD (gastroesophageal reflux disease) Acute anxiety Depression Insomnia Surgical History History of esophagogastroduodenoscopy (EGD) Hx of colonoscopy Previous back surgery Family History Father Alzheimer disease Mother Stroke Brother Esophageal cancer Other Mental problem Substance abuse Social History Household Members: Significant Other Household Members Other:: 1 Housing: Apartment Are you a primary critical care transport nurse to a significant other at home: No Do you presently have visiting nurse or other home services: No Alcohol intake: current Alcohol intake frequency: former alcohol drinker Alcohol type: hard liquor Patient Tobacco Use Status: Current everyday Tobacco user Tobacco use type: Cigarette Cigarettes Per Day: 10 Years Smoked: 40 e-Cigarette/Vaping Use: Former Use Second Hand Smoke Exposure: Yes Substance Use Type: Crack/Cocaine Advance Directives Date on File: 03/17/22 service: No Current occupational status: employed 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 Dannie Sandoval, Kathryn Bryant, Felipe Paulson and colleagues, with an educational rupal from [employer] [employer] [facility]. Review of Systems Const Denies headache(s) Eyes Denies loss of vision ENT Denies vertigo, Denies dizziness, Denies headache(s) and Denies sore throat Card Denies chest pain, Denies leg edema and Denies lightheadedness Resp Denies cough, Denies hemoptysis and Denies wheezing GI Denies abdominal pain, Denies melena, Denies constipation, Denies diarrhea and Denies vomiting Denies urinary frequency, Denies dysuria and Denies urinary urgency Musc Denies arthralgias, Denies joint swelling, Denies numbness and Denies tingling Neuro Denies Abnormal speech present, Denies behavioral changes, Denies vertigo, Denies dizziness, Denies headache(s), Denies loss of vision, Denies memory loss, Denies numbness and Denies tingling Psych Denies anxiety, Denies behavioral changes, Denies depression, Denies memory loss and Denies panic attacks Rizwan/Lymph Denies easy bleeding and Denies easy bruising Aller/Immun Denies wheezing Physical exam (Primary Care) Vital Signs: Last Vital Signs Pulse 97 08/25/23 10:26 Resp 15 08/25/23 10:26 BP 132/64 08/25/23 10:26 Pulse Ox 96 08/25/23 10:26 Oxygen Delivery Method Room Air 08/25/23 10:26 BMI result Body Mass Index 32.4 Tobacco/Smoking Status: Tobacco use Status Tobacco use date assessed 05/25/23 08/25/23 10:16 Patient Tobacco Use Status Current everyday Tobacco 08/25/23 10:16 Tobacco use type Cigarette 08/25/23 10:16 e-Cigarette/Vaping Use Former Use 08/25/23 10:16 Thrive Assessment: Date of Thrive Assessment Date Thrive assessed 05/25/23 08/25/23 10:16 Const General: healthy appearing, no acute distress, alert and awake Nutritional Appearance: well nourished Orientation/consciousness: oriented to person, oriented to place and oriented to time HENMT Ears: TM's normal bilaterally General nose exam: Normal nasal mucous membranes and turbinates present Eyes Conjunctivae: conjunctivae normal Sclerae: sclerae normal Pupils: Equal, round and reactive pupils present Neck Neck: Yes no lymphadenopathy and Yes no JVD Thyroid: Thyroid normal Carotids: no bruits Resp Effort & Inspection: normal respiratory effort and not tachypneic Auscultation: no crackles, no rales, no rhonchi and no wheezes Cardio Rate: regular rate Rhythm: regular rhythm Heart sounds: no murmurs and normal S1 and S2 GI Palpation (GI): Soft to palpation, nontender, no hepatomegaly and no splenomegaly Auscultation: normal bowel sounds Skin General skin exam: no rashes or lesions noted and dry skin Neuro General: oriented to person, oriented to place and oriented to time Cranial nerves: Yes Equal, round and reactive pupils present Speech: No Abnormal speech present Gait exam (Neuro): Normal gait present Motor exam (neuro): no tremor noted Extrem Right upper extremity: full ROM Left upper extremity: full ROM Right lower extremity: full ROM; no edema Left lower extremity: full ROM; no edema Psych Mental Status: mental status grossly normal Speech and movement: Normal speech and movement present Affect: normal affect Attitude: cooperative Thought process: Normal thought process present Assessment and Plan Assessment & Plan (1) HTN (hypertension): Code(s): I10 - Essential (primary) hypertension Qualifiers: Hypertension type: primary hypertension Qualified Code(s): I10 - Essential (primary) hypertension Plan: Blood pressure in office acceptable.. Continue on her current dose of antihypertensive medication. Has not been monitoring blood pressure at home and advised to start doing so with goal blood pressure to be below 140/90 (2) Tobacco dependence: Code(s): F17.200 - Nicotine dependence, unspecified, uncomplicated Plan: Unfortunately patient still smokes a pack a cigarettes per day and does understand she needs to quit smoking in order to be candidate for back surgery. She plans in the immediate near future. (3) ADD (attention deficit disorder): Code(s): F98.8 - Other specified behavioral and emotional disorders with onset usually occurring in childhood and adolescence Qualifiers: Hyperactivity presence: absent Qualified Code(s): F98.8 - Other specified behavioral and emotional disorders with onset usually occurring in childhood and adolescence Plan: Patient continues on Concerta with good effect on her attention and focus on her ADLs. (4) Pulmonary embolism: Code(s): I26.99 - Other pulmonary embolism without acute cor pulmonale Qualifiers: Pulmonary embolism type: single subsegmental (without acute cor pulmonale) Qualified Code(s): I26.93 - Single subsegmental pulmonary embolism without acute cor pulmonale Plan: Has a history of pulmonary embolism in the setting of COVID pneumonia, was temporarily on anticoagulation. (5) Opiate dependence: Code(s): F11.20 - Opioid dependence, uncomplicated Qualifiers: Substance use status: uncomplicated Qualified Code(s): F11.20 - Opioid dependence, uncomplicated Plan: Patient continues on Suboxone and follows a Suboxone clinic clinician. She reports she continues to stay sober for many street opiates. (6) Tremor: Code(s): R25.1 - Tremor, unspecified Plan: Patient continues to suffer with a tremor over the last year. Unclear etiology at this time though could be an intentional tremor. Offered medication primidone though she like to hold off and see a neurologist. (7) Visual changes: Code(s): H53.9 - Unspecified visual disturbance Plan: Patient reports over the last 4 days having some visual changes in her left eye. She recently did see eye doctor and did have some hypertensive retinopathy. She does have a history of pulmonary embolism and continues to smoke. Will send for CT with IV contrast to evaluate for high-grade stenosis or signs of previous CVA. (8) FOREIGN (generalized anxiety disorder): Code(s): F41.1 - Generalized anxiety disorder Plan: Patient reports her anxiety has not been well controlled. She does take clonazepam 1 mg daily. She reports over the last few weeks taking 2 to clonazepam. Now has run out. Wonder about taking more benzodiazepine than prescribed. She continues to speak with a mental health therapist weekly. Will supply with propranolol to help with both anxiety and perhaps her tremor. Orders: Orders CT head/brain w IV con Today H53.9 - Unspecified visual disturbance Referrals Neurology Referral R25.1 - Tremor, unspecified Medications: New propranolol 10 mg PO BID 30 days PRN 60 tabs 2RF anxiety F43.10 - Post-traumatic stress disorder, unspecified Refilled gabapentin 800 mg PO BID 30 days 60 tabs 3RF M54.16 - Radiculopathy, lumbar region methocarbamol 750 mg PO BID 60 days PRN 60 tabs 3RF muscle spasm M54.16 - Radiculopathy, lumbar region, M62.830 - Muscle spasm of back On Hold clonidine HCl Hold Comment: Doctor's Order 0.2 mg PO BEDTIME 90 days 90 tabs 2RF F41.1 - Generalized anxiety disorder Coding Level of Care Code Est Pt Level 4 (45571) Diagnoses Primary hypertension I10 Hypertension type: primary hypertension Tobacco dependence F17.200 Attention deficit disorder (ADD) without hyperactivity F98.8 Hyperactivity presence: absent Single subsegmental pulmonary embolism without acute cor pulmonale I26.93 Pulmonary embolism type: single subsegmental (without acute cor pulmonale) Uncomplicated opioid dependence F11.20 Substance use status: uncomplicated Tremor R25.1 Visual changes H53.9 FOREIGN (generalized anxiety disorder) F41.1
[2023-08-25 10:26] VITALS: BP 132/64; PULSE 97; RESP 15; O2SAT 96; BMI 32.4
== END 2023-08-25 11:08 | disposition home or self-care (01) ==
PROVIDERS: PCP Physician Assistant; Visit Provider Physician Assistant
DX: I10 Essential (primary) hypertension (principal); I26.93 Single subsegmental thrombotic pulmonary embolism without acute cor pulmonale; F11.20 Opioid dependence, uncomplicated; F17.200 Nicotine dependence, unspecified, uncomplicated; F98.8 Other specified behavioral and emotional disorders with onset usually occurring in childhood and adolescence; R25.1 Tremor, unspecified; H53.9 Unspecified visual disturbance; F41.1 Generalized anxiety disorder
CPT/HCPCS: 99214

== ENCOUNTER 2023-09-13 08:03 | Outpatient (AMB) | payer OTHER, SELFPAY ==
--- NOTE | 2023-09-13 08:07 | AM.OFFWIN_ITS ---
Intake Vital Signs 09/13/23 08:15 Height 5 ft 4 in Weight 189 lb BMI 32.4 BP 122/70 Blood Pressure Location Rt brachial Position Sitting Pulse 60 Pulse Source Pulse Oximeter Temp 98.7 F Temp Source Oral Pulse Oximetry (%) 93 Oxygen Delivery Method Room Air Intake Visit Reasons: EP Allergic reaction Intake Note: pt is here for allergic reaction to unsure what it is from ongoing for 2 weeks. rash all over body and very itching Patient Tobacco Use Status: Current everyday Tobacco user Allergies Penicillins [PENICILLINS] Allergy (Intermediate, Verified 09/13/23 08:42) RASH (CHILDHOOD ALLERGY) Medication List - Last Reconciled 09/13/23 by Frankie Lara MD albuterol sulfate 2.5 mg (3 mL) inhalation Q6H PRN 30 days albuterol sulfate 90 mcg/actuation (ProAir HFA) 1 puff PO Q4H PRN buprenorphine-naloxone 8-2 mg (Suboxone) 1 strip sublingual DAILY cane As directed clonazepam 1 mg PO DAILY 30 days clonidine HCl 0.2 mg PO BEDTIME 90 days fluoxetine 60 mg (3 x 20 mg) PO DAILY gabapentin 800 mg PO BID 30 days hydroxyzine HCl 50 mg PO BEDTIME 30 days lidocaine 5% 1 patch topical DAILY 30 days lisinopril-hydrochlorothiazide 10-12.5 mg 1 tab PO DAILY 90 days methocarbamol 750 mg PO BID PRN 60 days methylphenidate HCl ER (Concerta) 36 mg PO DAILY 28 days multivitamin 1 tab PO DAILY nebulizers As directed omeprazole 40 mg PO DAILY 90 days propranolol 10 mg PO BID PRN 30 days trazodone 50 mg PO BEDTIME PRN 90 days umeclidinium-vilanterol 62.5-25 mcg/actuation (Anoro Ellipta) 1 ea PO DAILY vitamin B complex 1 tab PO DAILY Do you need a note to return to daycare/school/sports/work: No HPI EP Allergic reaction HPI Details 62-year-old female presents to [facility] a sick visit. Patient reports symptoms of itchiness for the past 2 days. She feels it in her back and inner thighs. Patient reports that she has not been abusing any illegal substances. Continues to take her Suboxone. Her last alcohol drink was more than a year ago. [facility] Medical History (Updated 08/25/23 @ 11:08 by Amari Mckeon PA-C) Pulmonary embolism SARS-CoV-2 positive Opioid abuse Ganglion cyst Obese Tubular adenoma of colon Otitis externa RUQ abdominal pain GERD (gastroesophageal reflux disease) Acute anxiety Depression Insomnia Surgical History History of esophagogastroduodenoscopy (EGD) Hx of colonoscopy Previous back surgery Family History Father Alzheimer disease Mother Stroke Brother Esophageal cancer Other Mental problem Substance abuse Social History Household Members: Significant Other Household Members Other:: 1 Housing: Apartment Are you a primary pharmacy care coordinator to a significant other at home: No Do you presently have visiting nurse or other home services: No Alcohol intake: current Alcohol intake frequency: former alcohol drinker Alcohol type: hard liquor Patient Tobacco Use Status: Current everyday Tobacco user Tobacco use type: Cigarette Cigarettes Per Day: 10 Years Smoked: 40 e-Cigarette/Vaping Use: Former Use Second Hand Smoke Exposure: Yes Substance Use Type: Crack/Cocaine Advance Directives Date on File: 03/17/22 service: No Current occupational status: employed 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[employer], 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 Sexual orientation: Straight/Heterosexual Cognitive needs: Yes (cane) Hearing needs: No Vision needs: Yes (Glasses) Physical Exam Vital Signs: Last Vital Signs Temp 98.7 F 09/13/23 08:15 Pulse 60 09/13/23 08:15 BP 122/70 09/13/23 08:15 Pulse Ox 93 09/13/23 08:15 Oxygen Delivery Method Room Air 09/13/23 08:15 BMI result Body Mass Index 32.4 Const General: cooperative and healthy appearing Nutritional Appearance: well nourished Orientation/consciousness: patient oriented x3 Limitations: no limitations HEENT Head: Yes normal to inspection Eyes General: appearance normal, both eyes and all related structures Neck Neck: Yes normal visual inspection Chest Chest palpation & inspection: normal palpation of entire chest wall Resp Effort & Inspection: normal respiratory effort Skin Other: No visible rash. Examination done with a female back office medical assistant in the room. Neuro General: patient oriented x3 Assessment & Plan Assessment & Plan (1) Rash: Code(s): R21 - Rash and other nonspecific skin eruption Plan: Prednisone prescribed. The symptoms could represent withdrawal from substance use. However patient insists that she has recently not taken any of these. Continue the Suboxone. Coding Level of Care Code Est Pt Level 3 (44250) Diagnoses Rash R21
[2023-09-13 08:15] VITALS: BP 122/70; PULSE 60; TEMP 37.1; O2SAT 93; BMI 32.4
== END 2023-09-13 08:49 | disposition home or self-care (01) ==
PROVIDERS: PCP Physician Assistant; Visit Provider Internal Medicine
DX: R21 Rash and other nonspecific skin eruption (principal)
CPT/HCPCS: 99213

== ENCOUNTER 2023-09-17 14:51 | Outpatient (AMB) | payer OTHER, SELFPAY ==
[2023-09-17 14:54] VITALS: BP 110/64; PULSE 74; O2SAT 94; BMI 32.0
--- NOTE | 2023-09-17 14:54 | A.OFFVIS_ITS ---
Vital Signs 09/17/23 14:54 Height 5 ft 4 in Weight 186 lb 4.65 oz BMI 32.0 BP 110/64 Blood Pressure Location Rt brachial Position Sitting Pulse 74 Pulse Source Doppler Pulse Oximetry (%) 94 Oxygen Delivery Method Room Air Intake Visit Reasons: Pulm Nodules Allergies Penicillins [PENICILLINS] Allergy (Intermediate, Verified 09/17/23 14:59) RASH (CHILDHOOD ALLERGY) HPI HPI Pulm Nodules: Details: 62-year-old lady, active 40+ pack-year smoker, followed for underlying moderate emphysema without fixed obstruction.? Patient continues on Anoro and albuterol MDI with reasonable control of her underlying symptoms.? At the last office visit she was treated with a course of prednisone azithromycin for an acute exacerbation that has now resolved. Her follow-up CT chest is pending. [facility] Medical History (Updated 08/25/23 @ 11:08 by Amari Mckeon PA-C) Pulmonary embolism SARS-CoV-2 positive Opioid abuse Ganglion cyst Obese Tubular adenoma of colon Otitis externa RUQ abdominal pain GERD (gastroesophageal reflux disease) Acute anxiety Depression Insomnia Surgical History History of esophagogastroduodenoscopy (EGD) Hx of colonoscopy Previous back surgery Family History Father Alzheimer disease Mother Stroke Brother Esophageal cancer Other Mental problem Substance abuse Social History Household Members: Significant Other Household Members Other:: 1 Housing: Apartment Are you a primary home health care case manager to a significant other at home: No Do you presently have visiting nurse or other home services: No Alcohol intake: current Alcohol intake frequency: former alcohol drinker Alcohol type: hard liquor Patient Tobacco Use Status: Current everyday Tobacco user Tobacco use type: Cigarette Cigarettes Per Day: 10 Years Smoked: 40 e-Cigarette/Vaping Use: Former Use Second Hand Smoke Exposure: Yes Substance Use Type: Crack/Cocaine Advance Directives Date on File: 03/17/22 service: No Current occupational status: employed 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[employer], 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 Sexual orientation: Straight/Heterosexual Cognitive needs: Yes (cane) Hearing needs: No Vision needs: Yes (Glasses) Review of Systems Const Denies daytime sleepiness, Denies excessive sweating, Denies fatigue, Denies fever(s), Denies lethargy, Denies malaise, Denies night sweats, Denies snoring and Denies weight loss Eyes Denies blurry vision and Denies itchy eyes ENT Denies nasal congestion, Denies post nasal drip, Denies sinus pain, Denies sinus pressure and Denies other ( Thrush) Card Denies chest pain, Denies pedal edema, Denies dyspnea, Denies orthopnea and Denies paroxysmal nocturnal dyspnea Resp Denies cough, Denies hemoptysis, Denies excessive phlegm production, Denies dyspnea, Denies snoring and Denies wheezing GI Denies abdominal pain and Denies heartburn Musc Denies myalgias, Denies arthralgias and Denies joint swelling Skin/Breast Denies rash Neuro Denies memory loss and Denies seizure-like activity Psych Denies abnormal sleep pattern, Denies anxiety and Denies memory loss Endo Denies excessive sweating, Denies fatigue and Denies heat intolerance Rizwan/Lymph Denies easy bruising Aller/Immun Denies itchy eyes, Denies seasonal rhinorrhea and Denies wheezing Physical Exam Vital Signs: Last Vital Signs Pulse 74 09/17/23 14:54 BP 110/64 09/17/23 14:54 Pulse Ox 94 09/17/23 14:54 Oxygen Delivery Method Room Air 09/17/23 14:54 BMI result Body Mass Index 32.0 Const General: no acute distress and alert Nutritional Appearance: not obese Orientation/consciousness: Other orientation findings ( oriented) HEENT Head: Yes atraumatic Eyes General: appearance normal, both eyes and all related structures Sclerae: sclerae normal EOM: EOMs intact bilaterally Neck Neck: Yes supple Lymphatic: no lymphadenopathy noted Resp Effort & Inspection: normal respiratory effort and no use of accessory muscles Auscultation: clear to auscultation bilaterally Cardio Rate: regular rate Rhythm: regular rhythm Heart sounds: no gallops, no murmurs and no rubs Skin General skin exam: other ( warm) Extrem General: No clubbing, No cyanosis and No edema Quality Reporting (2019) Adult ([facility] 138/2//69) Smoking risk assessment performed?: Yes Patient Tobacco Use Status: Current everyday Tobacco user Assessment & Plan Assessment & Plan (1) Pulmonary emphysema: Code(s): J43.9 - Emphysema, unspecified Category: Medical Plan: Well controlled on current regimen of Anoro and albuterol MDI/nebs. Continue current regimen. (2) Pulmonary nodules: Code(s): R91.8 - Other nonspecific abnormal finding of lung field Category: Medical Plan: No worrisome nodules on the last scan. Continue with yearly surveillance, next in January of 2024. Coding Level of Care Code Est Pt Level 4 (34904) Diagnoses Pulmonary emphysema J43.9 Pulmonary nodules R91.8
== END 2023-09-17 15:09 | disposition home or self-care (01) ==
PROVIDERS: PCP Physician Assistant; Visit Provider Internal Medicine Pulmonary Disease
DX: J43.9 Emphysema, unspecified (principal); R91.8 Other nonspecific abnormal finding of lung field
CPT/HCPCS: 99214

== ENCOUNTER → 2023-09-17 14:51 | Outpatient (BNVA) | payer OTHER, SELFPAY | PROVIDERS: PCP Physician Assistant; Visit Provider Internal Medicine Pulmonary Disease | DX: J43.9 Emphysema, unspecified (principal); R91.8 Other nonspecific abnormal finding of lung field; Z79.899 Other long term (current) drug therapy | CPT/HCPCS: 99212 ==

== ENCOUNTER 2023-10-22 07:44 | Outpatient (REF) | payer OTHER, SELFPAY ==
--- NOTE | ~2023-10-22 | CT_ITS ---
CT ANGIOGRAM BRAIN, HEAD CLINICAL INFORMATION: Eye exam normal with acute onset visual changes and floaters. Rule out high-grade stenosis. COMPARISON: Head CT 03/13/2022. TECHNIQUE: Test bolus sequences followed by intravenous administration 75 mL of Omnipaque 350 intravenous contrast. Helical imaging was performed in the axial plane from the skull base to the vertex. Delayed postcontrast imaging of the head was also performed. The data was processed at the glass technologist workstation for generation of MIP sequences. Three-dimensional volume rendered reformatted images were also generated at an offline 3-D workstation. The degree of stenosis determined by NASCET criteria. This CT examination was performed using dose optimization techniques as appropriate, variously including the following: *Automated exposure control *Adjustment of mA and/or kV according to patient size (this includes techniques or standardized protocols for targeted exams where dose is matched to indication/reason for exam; i.e. extremities or head) *Use of iterative reconstruction technique FINDINGS: A 3.5 mm saccular aneurysm projects medially from the proximal right cavernous ICA segment on image 96 of series 13. No significant arterial stenoses and no acute arterial occlusions intracranially. There is mild chronic microangiopathy. There is no intracranial hemorrhage, hydrocephalus, extra-axial surface collection, midline shift, or other herniation pattern. Hernandez to white matter differentiation is diffusely maintained without evidence of an evolved acute territorial infarct. The basilar cisterns are preserved. No significant soft tissue abnormality. No acute osseous abnormality. The paranasal sinuses and the mastoid air cells are well aerated. CT/CT angio head IMPRESSION: - A 3.5 mm saccular aneurysm projects medially from the proximal right cavernous ICA segment on image 96 of series 13. - No significant arterial stenoses and no acute arterial occlusions intracranially. - No acute intracranial findings. There is mild chronic microangiopathy.
[2023-10-22 08:26] LABS: Anion Gap 14 (12-20); Blood Urea Nitrogen 12 mg/dL (9-16); Calcium 9.3 mg/dL (8.4-10.2); Carbon Dioxide 26 mmol/L (22-29); Chloride 102 mmol/L (96-108); Estimated Glomerular Filt Rate > 60; Glucose Random 95 mg/dL (60-115); Potassium 4.3 mmol/L (3.3-5.1); Sodium 138 mmol/L (135-145)
[2023-10-22] MEDS: iohexoL 350 MG/ML 100 ML INFUS..BTL IV (10:27)
== END 2023-10-22 07:45 | disposition home or self-care (01) ==
LOC: HO.CT 07:44
PROVIDERS: PCP Internal Medicine; Visit Provider Physician Assistant
DX: H53.9 Unspecified visual disturbance (principal)
CPT/HCPCS: 36415; 70496; 80048; Q9967

== ENCOUNTER 2023-12-07 11:00 | Outpatient (AMB) | payer OTHER, SELFPAY ==
--- NOTE | 2023-12-07 11:11 | A.OFFPC_ITS ---
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 Accompanied by: Self / Same As Patient Allergies Penicillins [PENICILLINS] Allergy (Intermediate, Verified 12/07/23 11:27) RASH (CHILDHOOD ALLERGY) Medication List - Last Reconciled 12/07/23 by Amari Mckeon PA-C albuterol sulfate 2.5 mg (3 mL) inhalation Q6H PRN 30 days albuterol sulfate 90 mcg/actuation (ProAir HFA) 1 puff PO Q4H PRN buprenorphine-naloxone 8-2 mg (Suboxone) 1 strip sublingual DAILY cane As directed clonazepam 1 mg PO DAILY 30 days clonidine HCl 0.2 mg PO BEDTIME 90 days fluoxetine 60 mg (3 x 20 mg) PO DAILY gabapentin 800 mg PO BID 30 days hydroxyzine HCl 50 mg PO BEDTIME 30 days lidocaine 5% 1 patch topical DAILY 30 days lisinopril-hydrochlorothiazide 10-12.5 mg 1 tab PO DAILY 90 days methocarbamol 750 mg PO BID PRN 60 days methylphenidate HCl ER (Concerta) 36 mg PO DAILY 28 days multivitamin 1 tab PO DAILY nebulizers As directed nicotine 1 patch transdermal DAILY 14 days nicotine 1 patch transdermal DAILY 14 days omeprazole 40 mg PO DAILY 90 days prednisone 60 mg (3 x 20 mg) PO DAILY propranolol 10 mg PO BID PRN 30 days trazodone 50 mg PO BEDTIME PRN 90 days umeclidinium-vilanterol 62.5-25 mcg/actuation (Anoro Ellipta) 1 ea PO DAILY vitamin B complex 1 tab PO DAILY Tobacco use date assessed: 05/25/23 Fall risk assessment: No Falls in past year Last assessed Fall Risk: 12/07/23 Dental Screening Dental Screen Date: 05/25/23 HPI f/u ADD / HTN HPI Details Patient is a 63-year-old female here today for follow-up on her ADD disorder. . Concern--> reports she continues to some worsening memory issues. Often forgetting where she is going and why she is doing something. We did discuss the possibility for medications causing memory deficit and she agrees and understands. She also does have polysubstance use disorder history. She will be following up with Neurology in the fall of 2023 will discuss her symptoms. --> of note we did discuss reducing her dose of gabapentin and/or clonazepam as this may be causing worsening memory issues though she is not willing to do so at this time. .. Tremor: Still present though has been much better since starting propranolol. Attention deficit disorder: She continues on Concerta which has drastically improved her quality of life. She reports a significant improvement in her attention and focus. .. Anxiety: Reports her anxiety has been not the best controlled, has been working with a mental health therapist. She continues on clonazepam 1 mg daily. Will supplement with propanolol and higher dose of hydroxyzine. .. Migraines in vision issues: Will send for CTA of head and was found to have a 3.5 cm saccular aneurysm. Has been followed up with neurosurgeon and was not considered a surgical candidate for coiling. Given follow-up appointment in 3 years. Hypertension: Blood pressure much improved since addition of lisinopril. Will continue current dose lisinopril hydrochlorothiazide. . Former smoker : quit smoking 3 weeks ago, Unfortunately continues to smoke and informs me she will be quitting in the next 2 weeks .. COPD: Continues to follow [facility]. Did have a recent COPD exacerbation was treated with antibiotic and prednisone. She will be doing annual CT scans. She does have pulmonary nodules have been followed by pulmonology. [facility], [facility] Medical History Pulmonary embolism SARS-CoV-2 positive Opioid abuse Ganglion cyst Obese Tubular adenoma of colon Otitis externa RUQ abdominal pain GERD (gastroesophageal reflux disease) Acute anxiety Depression Insomnia Surgical History History of esophagogastroduodenoscopy (EGD) Hx of colonoscopy Previous back surgery Family History Father Alzheimer disease Mother Stroke Brother Esophageal cancer Other Mental problem Substance abuse Social History Household Members: Significant Other Household Members Other:: 1 Housing: Apartment Are you a primary direct care counselor to a significant other at home: No Do you presently have visiting nurse or other home services: No Alcohol intake: current Alcohol intake frequency: former alcohol drinker Alcohol type: hard liquor Patient Tobacco Use Status: Current everyday Tobacco user Tobacco use type: Cigarette Cigarettes Per Day: 10 Years Smoked: 40 e-Cigarette/Vaping Use: Former Use Second Hand Smoke Exposure: Yes Substance Use Type: Crack/Cocaine Advance Directives Date on File: 03/17/22 service: No Current occupational status: employed 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 Dannie Sandoval, Kathryn Bryant, Felipe Paulson and colleagues, with an educational rupal from [employer]. Review of Systems Const Reports headache(s) Eyes Denies loss of vision ENT Denies vertigo, Denies dizziness, Reports headache(s) and Denies sore throat Card Denies chest pain, Denies leg edema and Denies lightheadedness Resp Denies cough, Denies hemoptysis and Denies wheezing GI Denies abdominal pain, Denies melena, Denies constipation, Denies diarrhea and Denies vomiting Denies urinary frequency, Denies dysuria and Denies urinary urgency Musc Denies arthralgias, Denies joint swelling, Denies numbness and Denies tingling Neuro Denies Abnormal speech present, Denies behavioral changes, Denies vertigo, Denies dizziness, Reports headache(s), Denies loss of vision, Denies memory loss, Denies numbness and Denies tingling Psych Denies anxiety, Denies behavioral changes, Denies depression, Denies memory loss and Denies panic attacks Rizwan/Lymph Denies easy bleeding and Denies easy bruising Aller/Immun Denies wheezing Physical exam (Primary Care) Vital Signs: Last Vital Signs Pulse 62 12/07/23 11:26 BP 106/68 12/07/23 11:26 Pulse Ox 95 12/07/23 11:26 Oxygen Delivery Method Room Air 12/07/23 11:26 BMI result Body Mass Index 31.6 Tobacco/Smoking Status: Tobacco use Status Tobacco use date assessed 05/25/23 12/07/23 11:11 Patient Tobacco Use Status Current everyday Tobacco 12/07/23 11:11 Tobacco use type Cigarette 12/07/23 11:11 e-Cigarette/Vaping Use Former Use 12/07/23 11:11 Thrive Assessment: Date of Thrive Assessment Date Thrive assessed 05/25/23 12/07/23 11:11 Const General: healthy appearing, no acute distress, alert and awake Nutritional Appearance: well nourished Orientation/consciousness: oriented to person, oriented to place and oriented to time HENMT Ears: TM's normal bilaterally General nose exam: Normal nasal mucous membranes and turbinates present Eyes Conjunctivae: conjunctivae normal Sclerae: sclerae normal Pupils: Equal, round and reactive pupils present Neck Neck: Yes no lymphadenopathy and Yes no JVD Thyroid: Thyroid normal Carotids: no bruits Resp Effort & Inspection: normal respiratory effort and not tachypneic Auscultation: no crackles, no rales, no rhonchi and no wheezes Cardio Rate: regular rate Rhythm: regular rhythm Heart sounds: no murmurs and normal S1 and S2 GI Palpation (GI): Soft to palpation, nontender, no hepatomegaly and no splenomegaly Auscultation: normal bowel sounds Skin General skin exam: no rashes or lesions noted and dry skin Neuro General: oriented to person, oriented to place and oriented to time Cranial nerves: Yes Equal, round and reactive pupils present Speech: No Abnormal speech present Gait exam (Neuro): Normal gait present Motor exam (neuro): no tremor noted Extrem Right upper extremity: full ROM Left upper extremity: full ROM Right lower extremity: full ROM; no edema Left lower extremity: full ROM; no edema Psych Mental Status: mental status grossly normal Speech and movement: Normal speech and movement present Affect: normal affect Attitude: cooperative Thought process: Normal thought process present Assessment and Plan Assessment & Plan (1) HTN (hypertension): Code(s): I10 - Essential (primary) hypertension Qualifiers: Hypertension type: primary hypertension Qualified Code(s): I10 - Essential (primary) hypertension Plan: Blood pressure in office acceptable.. Continue on her current dose of antihypertensive medication. Has not been monitoring blood pressure at home and advised to start doing so with goal blood pressure to be below 140/90 (2) ADD (attention deficit disorder): Code(s): F98.8 - Other specified behavioral and emotional disorders with onset usually occurring in childhood and adolescence Qualifiers: Hyperactivity presence: absent Qualified Code(s): F98.8 - Other specified behavioral and emotional disorders with onset usually occurring in childhood and adolescence Plan: Patient continues on Concerta with good effect on her attention and focus on her ADLs. (3) Opiate dependence: Code(s): F11.20 - Opioid dependence, uncomplicated Qualifiers: Substance use status: uncomplicated Qualified Code(s): F11.20 - Opioid dependence, uncomplicated Plan: Patient continues on Suboxone and follows a Suboxone clinic clinician. She reports she continues to stay sober for many street opiates. (4) Saccular aneurysm: Code(s): I67.1 - Cerebral aneurysm, nonruptured Plan: Has followed up with [facility] neurosurgeon and was told her case was not surgical. She will be followed up in 3 years.. CTA head--> A 3.5 mm saccular aneurysm projects medially from the proximal right cavernous ICA segment on image 96 of series 13. (5) Former smoker: Code(s): Z87.891 - Personal history of nicotine dependence Plan: Has stopped smoking over the last 3 weeks. She is willing to try nicotine patches for cravings. (6) Memory impairment: Code(s): R41.3 - Other amnesia Plan: Reports having some worsening memory impairment. Often forgetting where she is going and why she is doing things. She has upcoming appointment with Neurology in 03/12/2024 and will discuss her memory issues as well. I did discuss with her her medications particularly clonazepam and gabapentin which could be causing her memory issues. She is not willing to reduce her doses at this time. Medications: New nicotine 1 patch transdermal DAILY 14 ea 0RF 14 days F17.200 - Nicotine dependence, unspecified, uncomplicated nicotine 1 patch transdermal DAILY 14 ea 0RF 14 days F17.200 - Nicotine dependence, unspecified, uncomplicated Refilled lidocaine 5% leave on most painful area for up to 12 hrs 1 patch topical DAILY 30 ea 2RF 30 days M47.816 - Spondylosis without myelopathy or radiculopathy, lumbar region methylphenidate HCl ER (Concerta) Partial Fill upon patient request. 36 mg PO DAILY 28 tabs 0RF 28 days F98.8 - Other specified behavioral and emotional disorders with onset usually occurring in childhood and adolescence Patient Instructions: Goal: Blood pressure to remain below 140/90 Barriers: Adherence to physical activity and healthy eating habits Coding Level of Care Code Est Pt Level 4 (69057) Diagnoses Primary hypertension I10 Hypertension type: primary hypertension Attention deficit disorder (ADD) without hyperactivity F98.8 Hyperactivity presence: absent Uncomplicated opioid dependence F11.20 Substance use status: uncomplicated Saccular aneurysm I67.1 Former smoker Z87.891 Memory impairment R41.3
[2023-12-07 11:26] VITALS: BP 106/68; PULSE 62; O2SAT 95; BMI 31.6
== END 2023-12-07 11:55 | disposition home or self-care (01) ==
PROVIDERS: PCP Physician Assistant; Visit Provider Physician Assistant
DX: I10 Essential (primary) hypertension (principal); F98.8 Other specified behavioral and emotional disorders with onset usually occurring in childhood and adolescence; F11.20 Opioid dependence, uncomplicated; I67.1 Cerebral aneurysm, nonruptured; Z87.891 Personal history of nicotine dependence; R41.3 Other amnesia
CPT/HCPCS: 99214

== ENCOUNTER 2024-01-10 09:44 | Outpatient (AMB) | payer OTHER, SELFPAY ==
--- NOTE | 2024-01-10 10:15 | A.SPINEOV_ITS ---
Intake Visit Reasons: Pt. previously denied for surgery Intake Note: Ms. 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 Please refer to my last note for the specifics of her problem. She had a previous L4-5 posterior lumbar interbody fusion done without pedicle screws about 20 years ago with good success. She has a history of opiate and drug abuse and polysubstance abuse and currently takes Suboxone. We had seen her for a chronic back pain radiating down both of her legs, right greater than left that started a few years back. We had determined that she was a good candidate for an possible anterior lumbar interbody fusion. Her surgery was denied. I am seeing her back today, to re- evaluate. Again she has chronic daily back pain, aggravated with activity. She has been trying Tylenol, Advil, lidocaine patches as well as using her Suboxone. These things seemed to help. She has done physical therapy at [facility] in the past and does not have any interest in re engaging with that aspect of treatment. She has not done any cortisone injections as of yet. On exam she has a well healed midline scar about 6-8 inches long on her lower back as well as 1 on the left side where I suspect they took graft harvesting. Positive straight leg raise on the right at about 45 degrees. We discussed surgical indications again as well as expected outcomes for an anterior lumbar interbody fusion. We had a sonia conversation about the fact that her previous substance abuse makes it very difficult to give a good prediction about successful outcome and getting off her Suboxone. Because we did feel she previously had good indication for surgery we were willing to offer her the surgery as long as she understood her likelihood for success is lower than normal. Because her last MRI was 2 years ago I will get an updated image just as a matter of due diligence and then I will see her back and re-evaluate her again. Total amount of time spent in this visit was 20 minutes in discussion of symptoms, lumbar MRI imaging results and subsequent plan of care Niles Briones MD,PhD [facility] Orders: Orders MR lumbar spine wo/w con Today M54.16 - Radiculopathy, lumbar region, M54.50 - Low back pain, unspecified Coding Level of Care Code Est Pt Level 3 (89270) Diagnoses Lumbar radiculopathy, chronic M54.16 Low back pain M54.50
== END 2024-01-10 10:44 | disposition home or self-care (01) ==
PROVIDERS: PCP Internal Medicine; Visit Provider Physician Assistant
DX: M54.16 Radiculopathy, lumbar region (principal); M54.50 Low back pain, unspecified
CPT/HCPCS: 99213

== ENCOUNTER → 2024-01-10 09:44 | Outpatient (BNVA) | payer OTHER, SELFPAY | PROVIDERS: PCP Internal Medicine; Visit Provider Physician Assistant | DX: M54.16 Radiculopathy, lumbar region (principal); M54.50 Low back pain, unspecified | CPT/HCPCS: 99212 ==

== ENCOUNTER 2024-01-26 12:31 | Observation (INO) | payer OTHER, SELFPAY ==
[2024-01-26] VITALS (7 sets, daily range): BP systolic 109–134; BP diastolic 52–63; PULSE 66–80; RESP 14–22; TEMP 36.1–37.4; O2SAT 94–96; BMI 30.9; BMI 33.0
--- NOTE | ~2024-01-26 | XR_ITS ---
EXAMINATION: XR PORTABLE CHEST CLINICAL INFORMATION: Chest pain COMPARISON: 09/16/2021 TECHNIQUE: AP portable upright view of the chest FINDINGS: Lungs are hyperexpanded. Bronchial wall thickening is present perihilar regions. No airspace consolidation. No pneumothorax or pleural effusion. Cardiac and mediastinal contours are normal. Prior left distal clavicular resection. Osteoarthritis of the right acromioclavicular joint and both glenohumeral joints. No acute osseous findings. XR/XR chest 1V IMPRESSION: Bronchial wall thickening can be seen with a small airways process such as asthma or atypical/viral infection. No focal airspace consolidation. Electronically signed by: Angelo Wheeler MD 01/26/2024 04:00 PM EDT RP
--- NOTE | 2024-01-26 12:32 | ECG_ITS ---
Test Reason : CHEST PAIN Blood Pressure : / mmHG Vent. Rate : 074 BPM Atrial Rate : 074 BPM P-R Int : 120 ms QRS Dur : 088 ms QT Int : 384 ms P-R-T Axes : 002 038 048 degrees QTc Int : 426 ms Normal sinus rhythm Normal ECG When compared with ECG of 12-MAR-2022 21:41, Premature supraventricular complexes are no longer Present Referred By: Korina Youngblood Electronically Signed By:ZAKIYA IGNACIO
--- NOTE | 2024-01-26 13:14 | ED_ITS ---
HPI - General Adult General Chief complaint: Dyspnea Stated complaint: Chest pain/Diff breathing Time Seen by Provider: 01/26/24 13:11 Source: patient Mode of arrival: ambulatory Limitations: no limitations History of Present Illness HPI narrative: This is a 63-year-old woman with a past medical history of hypertension, COPD depression, anxiety, pulmonary embolism (on Eliquis) who presents for evaluation of dyspnea. She states ?I am at the tail end of a cold ?. She states that overall she has been improving. She states that her last fever was 2 or 3 days ago and states that it was as high as about 99? F. she states that she has been sick for 2 weeks with cough and congestion. She reports that over the last few days however she has had increasing dyspnea. She reports that her chest has felt tight. She states cough with sputum production. She states no hemoptysis. She states no leg swelling or pain. She states no chills or myalgias. She states no exertional chest pain. She states no back pain. She has no abdominal pain, nausea or vomiting. She states no syncope. He states no changes to bowel habits or urinary symptoms. Related Data Home Medications ?Medication ?Instructions ?Recorded ?Confirmed multivitamin 1 tab PO DAILY 02/10/22 01/26/24 buprenorphine 8 mg-naloxone 2 mg 1 strip sublingual DAILY 03/13/22 01/26/24 sublingual film (Suboxone) vitamin B complex 1 tab PO DAILY 03/23/22 01/26/24 albuterol sulfate 90 mcg/actuation 1 puff inhalation Q4H PRN muscle 01/26/24 01/26/24 aerosol inhaler (Ventolin HFA) spasm clonazepam 1 mg tablet 1 mg PO BEDTIME 01/26/24 01/26/24 gabapentin 800 mg tablet 800 mg PO BID@1200,2100 01/26/24 01/26/24 omeprazole 40 mg capsule,delayed 40 mg PO DAILY@0630 01/26/24 01/26/24 release Previous Rx's ?Medication ?Instructions ?Recorded nebulizers #1 ea 03/16/22 cane #1 ea 03/18/22 albuterol sulfate 2.5 mg/3 mL 2.5 mg (3 mL) inhalation Q6H PRN 06/27/22 (0.083 %) solution for nebulization shortness of breath or wheezing 30 days #360 mL umeclidinium 62.5 mcg-vilanterol 1 ea PO DAILY #60 ea 02/15/23 25 mcg/actuation powdr for inhalation (Anoro Ellipta) trazodone 50 mg tablet 50 mg PO BEDTIME PRN for insomnia 02/24/23 90 days #90 tabs lisinopril 10 1 tab PO DAILY 90 days #90 tabs 10/21/23 mg-hydrochlorothiazide 12.5 mg tablet methocarbamol 750 mg tablet 750 mg PO BID PRN muscle spasm 60 11/21/23 days #60 tabs fluoxetine 20 mg capsule 60 mg (3 x 20 mg) PO DAILY #90 caps 12/06/23 lidocaine 5 % topical patch 1 patch topical DAILY 30 days #30 12/07/23 ea propranolol 10 mg tablet 10 mg PO BID PRN anxiety 30 days 12/20/23 #60 tabs hydroxyzine HCl 50 mg tablet 50 mg PO BEDTIME 30 days #30 tabs 01/08/24 methylphenidate HCl 36 mg 36 mg PO DAILY 28 days #28 tabs 01/17/24 tablet,extended release 24 hr (Concerta) guaifenesin 100 mg/5 mL oral liquid 200 mg (10 mL) PO Q4H PRN 01/27/24 congestion #473 mL nicotine 21 mg/24 hr daily 21 mg transdermal DAILY #30 ea 01/27/24 transdermal patch benzonatate 100 mg capsule 100 mg PO TID PRN Cough #90 caps 02/10/24 prednisone 50 mg tablet 50 mg PO DAILY 5 days #5 tabs 02/10/24 doxycycline hyclate 100 mg capsule 100 mg PO BID 5 days #10 caps 02/11/24 clonidine HCl 0.2 mg tablet 0.2 mg PO BEDTIME 90 days #90 tabs 02/15/24 Allergies Allergy/AdvReac Type Severity Reaction Status Date / Time Penicillins [PENICILLINS] Allergy Intermediate RASH Verified 02/10/24 09:13 (CHILDHOOD ALLERGY) Review of Systems 2 Review of Systems: ROS as per HPI [facility] Past Medical History Medical History Pulmonary embolism SARS-CoV-2 positive Opioid abuse Ganglion cyst Obese Tubular adenoma of colon Otitis externa RUQ abdominal pain GERD (gastroesophageal reflux disease) Acute anxiety Depression Insomnia Surgical History History of esophagogastroduodenoscopy (EGD) Hx of colonoscopy Previous back surgery Family History Family History Father Alzheimer disease Mother Stroke Brother Esophageal cancer Other Mental problem Substance abuse Social History Social History Household Members: Significant Other Household Members Other:: fiancee Housing: Apartment Are you a primary home health care respiratory therapist to a significant other at home: No Do you presently have visiting nurse or other home services: No Alcohol intake: current Alcohol intake frequency: former alcohol drinker Alcohol type: hard liquor Patient Tobacco Use Status: Current someday Tobacco user Tobacco use type: Cigarette Cigarettes Per Day: 10 Years Smoked: 40 Packs per year/per ci.00 e-Cigarette/Vaping Use: Former Use Second Hand Smoke Exposure: Yes Substance Use Type: Marijuana Advance Directives Date on File: 03/17/22 service: No Current occupational status: employed 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[employer], 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 Sexual orientation: Straight/Heterosexual Cognitive needs: Yes (cane) Hearing needs: No Vision needs: Yes (Glasses) Physical Exam ED Vital Signs: Vital Signs - 24 hr 01/26/24 13:06 01/26/24 13:12 01/26/24 13:44 Temperature 99.3 F 99.3 F Pulse Rate 66 66 67 Respiratory Rate 14 16 22 H Blood Pressure 109/60 Pulse Oximetry 96 96 Oxygen Delivery Method Room Air Room Air 01/26/24 15:07 Temperature 98.9 F Pulse Rate 69 Respiratory Rate 14 Blood Pressure 119/62 Pulse Oximetry 94 Oxygen Delivery Method Room Air BMI result Body Mass Index 30.9 Gen: NAD, AOx3 HEENT: NCAT, EOMI, normal conjunctiva CV: RRR, no murmurs appreciated Pulm: Diffuse expiratory wheezes, good aeration, no rhonchi or rales, no stridor, no respiratory distress GI: Soft, NTND, no rebound, guarding or rigidity Neuro: Grossly non focal Medications Administered Discontinued Medications Generic Name Dose Route Start Last Admin Trade Name Freq PRN Reason Stop Dose Admin Acetaminophen 650 mg 01/26/24 18:01 01/27/24 00:06 Acetaminophen 325 Mg Tablet PO 650 mg Q6H PRN Administration Pain, Mild (Pain Scale 1-3), fever or headache Albuterol/Ipratropium 3 ml 01/26/24 20:00 01/27/24 11:31 Albuterol/Iprat 2.5/0.5mg 3 Ml Ampul.Neb INHALE 3 ml RQ4H WHILE AWAKE DANK Administration Azithromycin 500 mg 01/27/24 13:30 01/27/24 12:58 Azithromycin 500 Mg Tablet PO 500 mg Q24H DANK Administration Benzonatate 100 mg 01/26/24 18:01 01/27/24 06:22 Benzonatate 100 Mg Capsule PO 100 mg TID PRN Administration Cough Buprenorphine/Naloxone 1 film 01/27/24 09:00 01/27/24 08:41 Buprenorphine/Naloxone 8/2 Mg Film SUBLINGUAL 1 film DAILY DANK Administration Buprenorphine/Naloxone 1 film 01/26/24 17:57 01/26/24 18:30 Buprenorphine/Naloxone 8/2 Mg Film SUBLINGUAL 01/26/24 17:58 1 film ONCE ONE Administration Clonazepam 1 mg 01/26/24 18:00 01/27/24 08:11 Clonazepam 1 Mg Tablet PO 1 mg DAILY DANK Administration Albuterol Sulfate 5 mg/ 0 mg 01/26/24 13:27 01/26/24 13:43 Albuterol/Ipratropium 3 ml INHALE 01/26/24 13:28 1 each ONCE ONE Administration Enoxaparin Sodium 40 mg 01/26/24 18:15 01/26/24 18:28 Enoxaparin Sodium 40 Mg/0.4 Ml Syringe SUBCUT 40 mg Q24H DANK Administration Gabapentin 800 mg 01/26/24 21:00 01/27/24 08:11 Gabapentin 400 Mg Capsule PO 800 mg BID DANK Administration Guaifenesin 600 mg 01/26/24 21:00 01/27/24 08:11 Guaifenesin La 600 Mg Tab.Er.12h PO 600 mg BID DANK Administration Hydroxyzine HCl 50 mg 01/26/24 17:57 01/26/24 21:23 Hydroxyzine Hcl 50 Mg Tablet PO 50 mg BEDTIME PRN Administration Anxiety Lactated Ringer's 1,000 mls @ 999 mls/hr 01/26/24 13:27 01/26/24 15:37 Lr IV 01/26/24 14:27 Infused .Q1H1M ONE Infusion Azithromycin 500 mg/ Sodium 250 mls @ 125 mls/hr 01/26/24 13:27 01/26/24 17:02 Chloride IV 01/26/24 15:26 Infused ONCE ONE Infusion Influenza Virus Vaccine 0.5 ml 01/26/24 22:18 01/26/24 23:55 Flu Vacc [id number](6mos Up)/Pf 0.5 Ml Syringe IM 01/26/24 22:19 0.5 ml .ONCE ONE Administration Methylprednisolone Sodium Succinate 125 mg 01/26/24 13:27 01/26/24 13:43 Methylprednisolone Sod Succ 125 Mg/2 Ml Vial IVPUSH 01/26/24 13:28 125 mg ONCE ONE Administration Methylprednisolone Sodium Succinate 40 mg 01/27/24 08:00 01/27/24 08:41 Methylprednisolone Sod Succ 40 Mg/Ml Vial IVPUSH 40 mg Q12H DANK Administration Nicotine 21 mg 01/26/24 18:00 01/27/24 08:10 Nicotine 21 Mg Patch.Td24 TRANSDERMA 21 mg DAILY DANK Administration Propranolol HCl 10 mg 01/26/24 20:43 01/26/24 21:18 Propranolol Hcl 10 Mg Tablet PO 01/26/24 20:44 10 mg ONCE ONE Administration Protocol Sodium Chloride 3 ml 01/27/24 00:00 01/27/24 08:40 0.9 % Sodium Chloride Flush 3 Ml Syringe IVFLUSH 3 ml QSHIFT DANK Administration Trazodone HCl 50 mg 01/26/24 18:00 01/26/24 21:23 Trazodone Hcl 50 Mg Tablet PO 50 mg BEDTIME PRN Administration Insomnia Medical Decision Making Medical Decision Making MDM Narrative: Differential diagnosis includes, but is not limited to COPD exacerbation, viral syndrome, bronchitis, pneumonia. 1330 - patient is afebrile and hemodynamically stable on room air. Exam as above is consistent with a bronchospasm likely secondary to COPD exacerbation. This is not sepsis. We will evaluate for superimposed pneumonia given recent viral syndrome and concern for potential post viral pneumonia I reviewed and interpreted the patient's labs which are notable for leukocytosis with white blood cell 11.8, otherwise complete metabolic panel, BNP and troponin are reassuring. I reviewed and interpreted EKG, which is unremarkable for any acute findings. I independently reviewed patient's x-ray, which demonstrates no focal consolidation. I reviewed radiology x-ray impression as below. On re-examination, patient is noted to have new oxygen requirement, which resolves with supplemental oxygen via nasal cannula. Patient is treated supportively here in the emergency room with nebulized bronchodilators, methylprednisolone and azithromycin for COPD exacerbation. Patient's case management and is discussed with the admitting hospitalist, Dr. Dominique, and patient was subsequently admitted for further workup and management of acute hypoxic respiratory failure and COPD exacerbation. Admission/Observation Consideration of admission/observation: Escalation of care including admission/observation considered Consult Healthcare Provider Management of the patient was discussed with: Hospitalist Lab Data MDM Lab Attestation statement: I reviewed the patient's lab results. I have reviewed and interpreted the patient's labs general for leukocytosis of 0.8, and otherwise reassuring with an undetectable troponin effectively ruling out ACS. BNP unremarkable at 38. Patient has tested negative for COVID-19, influenza and RSV. 01/27/24 06:17 01/27/24 06:17 Labs: Lab Results 01/26/24 Range/Units 13:13 WBC 11.8 H (4.8-10.8) X10*3/uL RBC 4.31 (4.20-5.50) X10*6/uL Hgb 12.4 (12.0-16.0) g/dl Hct 36.7 L (37.0-47.0) % MCV 85.2 (80.0-98.0) fL MCH 28.8 (27.0-33.0) pg MCHC 33.8 (31.0-35.0) g/dl RDW 14.5 (11.0-16.0) % Plt Count 254 (160-400) X10*3/uL MPV 9.6 (9.4-12.3) fL Immature Gran % (Auto) 0.3 (0.0-0.4) % Neut % (Auto) 61.4 (45-73) % Lymph % (Auto) 27.8 (20-40) % [place] % (Auto) 5.9 (2-11) % Eos % (Auto) 4.3 H (0-4) % Baso % (Auto) 0.3 (0-2) % Lymph # (Auto) 3.3 (1.2-4.9) X10*3/uL [place] # (Auto) 0.7 (0.1-1.2) X10*3/uL Eos # (Auto) 0.5 H (0.0-0.4) X10*3/uL Baso # (Auto) 0.0 (0.0-0.2) X10*3/uL Abs Immat Gran (auto) 0.04 H (0.00-0.03) X10*3/uL Absolute Neuts (auto) 7.3 (2.0-8.3) x10*3/uL Absolute Nucleated RBC 0.000 (0.0-0.012) X10*3/uL Nucleated RBC % (auto) 0.0 (0.0-0.2) /100WBC Sodium 141 (135-145) mmol/L Potassium 3.6 (3.3-5.1) mmol/L Chloride 104 (96-108) mmol/L Carbon Dioxide 24 (22-29) mmol/L Anion Gap 17 (12-20) BUN 18 H (9-16) mg/dL Creatinine 0.90 (0.5-1.4) mg/dL Estim Creat Clear Calc 65.2 Estimated GFR > 60 Random Glucose 90 (60-115) mg/dL Calcium 9.2 (8.4-10.2) mg/dL Magnesium 2.3 (1.6-2.6) mg/dL Total Bilirubin 0.3 (0.0-1.0) mg/dL Direct Bilirubin 0.2 (0.0-0.5) mg/dL AST 10 (5-31) U/L ALT 11 (0-31) U/L Alkaline Phosphatase 110 (39-117) U/L Troponin I High Sens < 2.7 (<3.5-17.0) ng/L B-Natriuretic Peptide 38 (<100) pg/mL Total Protein 7.0 (6.5-8.0) g/dL Albumin 3.8 (3.5-5.0) g/dL Influenza Type A (PCR) NEGATIVE (Negative) Influenza Type B (PCR) NEGATIVE (Negative) RSV RNA Qual (PCR) NEGATIVE (Negative) SARS-CoV-2 RNA (RT-PCR) NEGATIVE (Negative) Independent Interpretation I performed an independent interpretation of an: EKG and Plain X-Ray Interpretation: I independently reviewed and interpreted the patient's EKG which demonstrates sinus rhythm at 74 beats per minute, MD 120, QRS 88, QTC 426, no STEMI (compared to prior EKG March 12, 2022 there are no diagnostic ischemic changes). I reviewed and independently interpreted the patient's chest x-ray which demonstrates no pneumothorax or focal consolidation. Radiology Impression Discussion of test interpretation with radiology: I have reviewed the radiologist's reading. Radiologist Impression: XR/XR chest 1V IMPRESSION: Bronchial wall thickening can be seen with a small airways process such as asthma or atypical/viral infection. No focal airspace consolidation. Electronically signed by: Angelo Wheeler MD 01/26/2024 04:00 PM EDT RP Dictated By: Angelo Wheeler MD Signed By: <Electronically signed by Angelo Wheeler MD in OV> 01/26/24 1600 Discharge Plan Discharge Clinical Impression: COPD exacerbation, Acute hypoxemic respiratory failure Patient Disposition: Admitted As Inpatient Interventions: Admission Worksheet (ED) Last Done: 01/26/24 20:57 Discharge Date/Time: 01/26/24 22:04
[2024-01-26 13:19] LABS: MANUAL DIFF FLAG NO
[2024-01-26 13:20] LABS: Basophils Percent Auto 0.3 % (0-2); Eosinophils Absolute Auto 0.5 X10*3/uL (0.0-0.4); Eosinophils Percent Auto 4.3 % (0-4); Hematocrit 36.7 % (37.0-47.0); Hemoglobin 12.4 g/dl (12.0-16.0); Imm Gran Abs Auto 0.04 X10*3/uL (0.00-0.03); Imm Gran Pct Auto 0.3 % (0.0-0.4); Lymphocytes Absolute Auto 3.3 X10*3/uL (1.2-4.9); Lymphocytes Percent Auto 27.8 % (20-40); Mean Corpuscular HGB Conc 33.8 g/dl (31.0-35.0); Mean Corpuscular Hemoglobin 28.8 pg (27.0-33.0); Mean Corpuscular Volume 85.2 fL (80.0-98.0); Mean Platelet Volume 9.6 fL (9.4-12.3); Monocytes Absolute Auto 0.7 X10*3/uL (0.1-1.2); Monocytes Percent Auto 5.9 % (2-11); Neutrophils Absolute Auto 7.3 x10*3/uL (2.0-8.3); Neutrophils Percent Auto 61.4 % (45-73); Platelet Count 254 X10*3/uL (160-400); Red Blood Count 4.31 X10*6/uL (4.20-5.50); Red Cell Distribution Width 14.5 % (11.0-16.0); White Blood Count 11.8 X10*3/uL (4.8-10.8)
--- NOTE | 2024-01-26 13:28 | ECG_ITS ---
Test Reason : DYSPNEA Blood Pressure : / mmHG Vent. Rate : 064 BPM Atrial Rate : 064 BPM P-R Int : 132 ms QRS Dur : 084 ms QT Int : 410 ms P-R-T Axes : 038 019 032 degrees QTc Int : 422 ms Normal sinus rhythm Normal ECG When compared with ECG of 26-JAN-2024 12:30, No significant change was found Referred By: Ahmet Gonzalez Electronically Signed By:ZAKIYA IGNACIO
[2024-01-26 13:36] LABS: Alanine Aminotransferase 11 U/L (0-31); Albumin Level 3.8 g/dL (3.5-5.0); Alkaline Phosphatase 110 U/L (39-117); Anion Gap 17 (12-20); Aspartate Amino Transferase 10 U/L (5-31); Bilirubin Direct 0.2 mg/dL (0.0-0.5); Bilirubin Total 0.3 mg/dL (0.0-1.0); Blood Urea Nitrogen 18 mg/dL (9-16); Calcium 9.2 mg/dL (8.4-10.2); Carbon Dioxide 24 mmol/L (22-29); Chloride 104 mmol/L (96-108); Creatinine Clr Calc Pharmacy 65.2; Estimated Glomerular Filt Rate > 60; Glucose Random 90 mg/dL (60-115); Magnesium 2.3 mg/dL (1.6-2.6); Potassium 3.6 mmol/L (3.3-5.1); Sodium 141 mmol/L (135-145)
[2024-01-26 13:39] LABS: B Type Natriuretic Peptide 38 pg/mL (<100)
[2024-01-26 13:43] LABS: Troponin-I High Sensitivity < 2.7 ng/L (<3.5-17.0)
[2024-01-26] MEDS: Albuterol Sulfate 5 MG, Albuterol/Iprat 2.5/0.5MG 3 ML 3 ML INHALE (13:43)
[2024-01-26] MEDS: methylPREDNISolone Sod Succ 125 MG/2 ML VIAL IVPUSH (13:43)
[2024-01-26] MEDS: Azithromycin 500 MG in 0.9 % Sodium Chloride 250 ML 125 MG IV (13:47)
[2024-01-26] MEDS: Lactated Ringers 1,000 ML 999 ML IV (13:49)
[2024-01-26 13:58] LABS: Influenza A PCR NEGATIVE (Negative); Influenza B PCR NEGATIVE (Negative); Resp Syncy Virus RNA Qual PCR NEGATIVE (Negative); SARS COV2 PCR INHOUSE NEGATIVE (Negative)
--- NOTE | 2024-01-26 15:20 | PC.NURSE ---
patient noted to be saturating at 85% on room air while asleep, patient able to go back up to 92% while talking with this RN, when falling back asleep patient noted to go back down to mid 80s. patient placed on 4L NC saturations maintaining at6 89-91% while asleep, MD made aware, ok per MD. Pump noted to have despite being plugged in, new inspector hairspring found, IV ABX continued at this time
--- NOTE | 2024-01-26 17:55 | PC.NURSE ---
pharmacy called to complete med rec
--- NOTE | 2024-01-26 18:05 | PM.IMHP ---
History of Present Illness Date of Service: 01/26/24 Chief Complaint: Dyspnea A 63 years old lady with PMH of COPD, Depression, Hx PE, active smoker among others who is presenting to ED with worsening dyspnea and SOB for 2 weeks now. The patient reports 2 weeks of dyspnea with associated cough and wheezing while using her home inhalers with fluctuation. for the last couple of days she is having less cough and mucus but became more dyspneic with minimal activity. Denies any fever, chills, No chest pain, palpitations, SOB, nausea, vomiting, diarrhea or urinary symptoms. In ED treated with IV steroids, nebulizers, O2 supplement with mild response. will need observation for treatment overnight at least. Review of Systems Review of Systems: No fever, chills or weakness No chest pain, palpitation having shortness of breath and coughing No abdominal pain, nausea or vomiting No urinary symptoms No any rash or wounds PMFSH Medical History Pulmonary embolism SARS-CoV-2 positive Opioid abuse Ganglion cyst Obese Tubular adenoma of colon Otitis externa RUQ abdominal pain GERD (gastroesophageal reflux disease) Acute anxiety Depression Insomnia Family History Father Alzheimer disease Mother Stroke Brother Esophageal cancer Other Mental problem Substance abuse Surgical History History of esophagogastroduodenoscopy (EGD) Hx of colonoscopy Previous back surgery Social History Household Members: Significant Other Household Members Other:: 1 Housing: Apartment Are you a primary medicare contact specialist to a significant other at home: No Do you presently have visiting nurse or other home services: No Alcohol intake: current Alcohol intake frequency: former alcohol drinker Alcohol type: hard liquor Patient Tobacco Use Status: Current everyday Tobacco user Tobacco use type: Cigarette Cigarettes Per Day: 10 Years Smoked: 40 Smoked in Last 30 Days: No e-Cigarette/Vaping Use: Former Use Second Hand Smoke Exposure: Yes Use of substances other than those prescribed or required for medical reasons: Yes Substance Use Type: Marijuana Substance Use Frequency: Occasionally Last Used Substance: Unknown Advance Directives: No Advance Directives Information Provided: Yes Advance Directives Date on File: 03/17/22 Do you have a plan to hurt others: No Plan Patient : No service: No Current occupational status: employed 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[employer], 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 Sexual orientation: Straight/Heterosexual Cognitive needs: Yes (cane) Hearing needs: No Vision needs: Yes (Glasses) Meds Allergies Allergy/AdvReac Type Severity Reaction Status Date / Time Penicillins [PENICILLINS] Allergy Intermediate RASH Verified 01/26/24 13:14 (CHILDHOOD ALLERGY) Active Medications: Current Medications Acetaminophen (Acetaminophen 325 Mg Tablet) 650 mg PO Q6H PRN PRN Reason: Pain, Mild (Pain Scale 1-3), fever or headache Albuterol Sulfate (Albuterol Sulfate (0.083%) 2.5 Mg/3 Ml Vial.Neb) 2.5 mg INHALE Q4H PRN PRN Reason: Shortness of Breath/Wheezing Albuterol/Ipratropium (Albuterol/Iprat 2.5/0.5mg 3 Ml Ampul.Neb) 3 ml INHALE RQ4H WHILE AWAKE DANK Azithromycin (Azithromycin 500 Mg Tablet) 500 mg PO Q24H DANK Benzonatate (Benzonatate 100 Mg Capsule) 100 mg PO TID PRN PRN Reason: Cough Buprenorphine/Naloxone (Buprenorphine/Naloxone 8/2 Mg Film) 1 film SUBLINGUAL DAILY DANK Buprenorphine/Naloxone (Buprenorphine/Naloxone 8/2 Mg Film) 1 film SUBLINGUAL ONCE ONE Stop: 01/26/24 17:58 Calcium Carbonate (Calcium Carbonate 750 Mg Tab.Chew) 750 mg PO Q4H PRN PRN Reason: Heartburn Clonazepam (Clonazepam 1 Mg Tablet) 1 mg PO DAILY [facility] Enoxaparin Sodium (Enoxaparin Sodium 40 Mg/0.4 Ml Syringe) 40 mg SUBCUT Q24H [facility] Gabapentin (Gabapentin 400 Mg Capsule) 800 mg PO BID DANK Guaifenesin (Guaifenesin La 600 Mg Tab.Er.12h) 600 mg PO BID DANK Hydroxyzine HCl (Hydroxyzine Hcl 50 Mg Tablet) 50 mg PO BEDTIME PRN PRN Reason: Anxiety Magnesium Hydroxide (Milk Of Magnesia 30 Ml Oral.Susp) 30 ml PO DAILY PRN PRN Reason: Constipation Melatonin (Melatonin 3 Mg Tablet) 6 mg PO BEDTIME PRN PRN Reason: Insomnia Methylprednisolone Sodium Succinate (Methylprednisolone Sod Succ 40 Mg/Ml Vial) 40 mg IVPUSH Q12H DANK Nicotine (Nicotine 21 Mg Patch.Td24) 21 mg TRANSDERMA DAILY DANK Sodium Chloride (0.9 % Sodium Chloride Flush 3 Ml Syringe) 3 ml IVFLUSH QSHIFT DANK Trazodone HCl (Trazodone Hcl 50 Mg Tablet) 50 mg PO BEDTIME PRN PRN Reason: Insomnia Home Medications ?Medication ?Instructions ?Recorded ?Confirmed ?Last Taken ?Type multivitamin 1 tab PO DAILY 02/10/22 12/07/23 Unknown History buprenorphine 8 mg-naloxone 2 mg 1 strip sublingual DAILY 03/13/22 12/07/23 Unknown History sublingual film (Suboxone) vitamin B complex 1 tab PO DAILY 03/23/22 12/07/23 Unknown History Physical Exam Vital Signs and Narrative: Vital Signs: Last Vital Signs Temp 98.9 F 01/26/24 15:07 Pulse 69 01/26/24 15:07 Resp 14 01/26/24 15:07 BP 119/62 01/26/24 15:07 Pulse Ox 94 01/26/24 15:07 O2 Del Method Room Air 01/26/24 15:07 BMI result Body Mass Index 30.9 Const: Other: Constitutional : Awake, interactive, in moderate respiratory distress Neck : Normal inspection, Supple Cardiovascular : RRR, no JVP, no lower extremity edema Respiratory : decreased bilateral air entry, no crackles, expiratory wheezes, on O2 supplement, using accessory muscles Gastrointestinal: soft, lax, Normal bowel sounds, Non tender Skin : Warm, Dry Neurological : Alert & oriented x3, No focal deficit Results Labs 01/26/24 13:13 01/26/24 13:13 Labs: Laboratory Results - last 24 hr 01/26/24 13:13 MCV 85.2 MCH 28.8 MCHC 33.8 RDW 14.5 Plt Count 254 MPV 9.6 Immature Gran % (Auto) 0.3 Neut % (Auto) 61.4 Lymph % (Auto) 27.8 [place] % (Auto) 5.9 Eos % (Auto) 4.3 H Baso % (Auto) 0.3 Lymph # (Auto) 3.3 [place] # (Auto) 0.7 Eos # (Auto) 0.5 H Baso # (Auto) 0.0 Abs Immat Gran (auto) 0.04 H Absolute Neuts (auto) 7.3 Absolute Nucleated RBC 0.000 Nucleated RBC % (auto) 0.0 Anion Gap 17 Estim Creat Clear Calc 65.2 Estimated GFR > 60 Random Glucose 90 Calcium 9.2 Magnesium 2.3 Total Bilirubin 0.3 Direct Bilirubin 0.2 AST 10 ALT 11 Alkaline Phosphatase 110 Troponin I High Sens < 2.7 B-Natriuretic Peptide 38 Total Protein 7.0 Albumin 3.8 Influenza Type A (PCR) NEGATIVE Influenza Type B (PCR) NEGATIVE RSV RNA Qual (PCR) NEGATIVE SARS-CoV-2 RNA (RT-PCR) NEGATIVE Imaging Radiologist's Impressions: Impressions Chest X-Ray 01/26/24 13:35 IMPRESSION: Bronchial wall thickening can be seen with a small airways process such as asthma or atypical/viral infection. No focal airspace consolidation. Electronically signed by: Angelo Wheeler MD 01/26/2024 04:00 PM EDT RP Assessment and Plan (1) COPD exacerbation: Status: Acute (2) Tobacco dependence: Status: Acute Plan A 63 years old lady with PMH of COPD, Depression, Hx PE, active smoker among others who is presenting to ED with worsening dyspnea and SOB for 2 weeks now. Acute COPD exacerbation CXR not showing any infiltrates Start IV steroids Continue Azitrhromycin PO O2 titration as tolerated Duonebs ATC , Albuterol prn Smoking Advised to quit, use patches while inpatient HTN Clonidine + HCTZ Mood disorder continue clonazepam + clonidine + gabapentin + hydroxyzine Hx OUD continue Suboxone DVT PPx: Lovenox Code status: Full code Quality Stroke Does the patient have a stroke diagnosis?: No VTE Prior VTE?: Yes VTE Risk Level:: Medical - moderate - high VTE Device Contraindication: Treatment Not Indicated VTE Drug Contraindication: N/A - Med Ordered
[2024-01-26] MEDS: Enoxaparin Sodium 40 MG/0.4 ML SYRINGE SUBCUT (18:28)
[2024-01-26] MEDS: clonazePAM 1 MG TABLET PO (18:29)
[2024-01-26] MEDS: Nicotine 21 MG PATCH.TD24 TRANSDERMA (18:30)
[2024-01-26] MEDS: Buprenorphine/Naloxone 8/2 mg FILM 1 FILM SUBLINGUAL (18:30)
--- NOTE | 2024-01-26 19:11 | PHA.MEDREC ---
Addendum entered by Singh Wharton [facility] 01/26/24 19:26: MED REC CHECKED BY [facility] ED Original Note: Pharmacy Consult ? Medication Reconciliation Pharmacy has completed the medication reconciliation. Spoke to patient to confirm med list. Patient states she no longer on Nicotine Patch, and Prednisone. Patient states she is on Anoro 1 puff daily, however last fill date was 03/17/23 for 30 days.
--- NOTE | 2024-01-26 19:30 | PC.NURSE ---
pt ambulating indep, in room W/ cane. walked to bathroom, tiding room. provided pt with a sandwich, could not chew the chicken that was sent for dinner. after ambulating w/out oxygen, stat was 91% RA, some SOB. placed back on O2, now 96%.
[2024-01-26] MEDS: Albuterol/Iprat 2.5/0.5MG 3 ML AMPUL.NEB INHALE (19:40)
--- NOTE | 2024-01-26 20:43 | PC.NURSE ---
pt requesting her propranolol at this time. MD santoro
--- NOTE | 2024-01-26 21:17 | PC.NURSE ---
pt asleep, destat to 87% on 2L, awoke pt, now at 94%
[2024-01-26] MEDS: Gabapentin 400 MG CAPSULE 800 MG PO (21:18)
[2024-01-26] MEDS: guaiFENesin LA 600 MG TAB.ER.12H PO (21:18)
[2024-01-26] MEDS: Propranolol HCL 10 MG TABLET PO (21:18)
[2024-01-26] MEDS: hydrOXYzine HCL 50 MG TABLET PO (21:23)
[2024-01-26] MEDS: traZODone HCL 50 MG TABLET PO (21:23)
[2024-01-26] MEDS: 0.9 % Sodium Chloride Flush 3 ML SYRINGE IVFLUSH (23:38)
[2024-01-26] MEDS: Flu Vacc TS2024-25(6mos up)/PF 0.5 ML SYRINGE IM (23:55)
[2024-01-27] MEDS: Acetaminophen 325 MG TABLET 650 MG PO (00:06)
[2024-01-27 03:27] VITALS: BP 127/67; PULSE 67; RESP 16; TEMP 36.4; O2SAT 97
[2024-01-27] MEDS: Benzonatate 100 MG CAPSULE PO (06:22)
[2024-01-27 06:46] LABS: MANUAL DIFF FLAG NO
[2024-01-27 06:54] LABS: Basophils Percent Auto 0.1 % (0-2); Eosinophils Percent Auto 0.1 % (0-4); Hematocrit 35.6 % (37.0-47.0); Hemoglobin 11.9 g/dl (12.0-16.0); Imm Gran Abs Auto 0.11 X10*3/uL (0.00-0.03); Lymphocytes Absolute Auto 2.2 X10*3/uL (1.2-4.9); Lymphocytes Percent Auto 20.9 % (20-40); Mean Corpuscular HGB Conc 33.4 g/dl (31.0-35.0); Mean Corpuscular Hemoglobin 28.2 pg (27.0-33.0); Mean Corpuscular Volume 84.4 fL (80.0-98.0); Monocytes Absolute Auto 0.6 X10*3/uL (0.1-1.2); Monocytes Percent Auto 5.8 % (2-11); Neutrophils Absolute Auto 7.6 x10*3/uL (2.0-8.3); Neutrophils Percent Auto 72.1 % (45-73); Platelet Count 247 X10*3/uL (160-400); Red Blood Count 4.22 X10*6/uL (4.20-5.50); Red Cell Distribution Width 14.1 % (11.0-16.0); White Blood Count 10.6 X10*3/uL (4.8-10.8)
[2024-01-27 07:09] LABS: Anion Gap 13 (12-20); Blood Urea Nitrogen 16 mg/dL (9-16); Calcium 9.4 mg/dL (8.4-10.2); Carbon Dioxide 27 mmol/L (22-29); Chloride 102 mmol/L (96-108); Creatinine Clr Calc Pharmacy 72.3; Estimated Glomerular Filt Rate > 60; Glucose Random 144 mg/dL (60-115); Potassium 3.7 mmol/L (3.3-5.1); Sodium 138 mmol/L (135-145)
[2024-01-27 07:25] VITALS: BP 146/70; PULSE 74; RESP 16; TEMP 36; O2SAT 95
[2024-01-27 07:48] VITALS: PULSE 67; RESP 16; O2SAT 97
[2024-01-27] MEDS: Albuterol/Iprat 2.5/0.5MG 3 ML AMPUL.NEB INHALE ×2 (07:48→11:31)
[2024-01-27] MEDS: Nicotine 21 MG PATCH.TD24 TRANSDERMA (08:10)
[2024-01-27] MEDS: clonazePAM 1 MG TABLET PO (08:11)
[2024-01-27] MEDS: Gabapentin 400 MG CAPSULE 800 MG PO (08:11)
[2024-01-27] MEDS: guaiFENesin LA 600 MG TAB.ER.12H PO (08:11)
[2024-01-27] MEDS: 0.9 % Sodium Chloride Flush 3 ML SYRINGE IVFLUSH (08:40)
[2024-01-27] MEDS: Buprenorphine/Naloxone 8/2 mg FILM 1 FILM SUBLINGUAL (08:41)
[2024-01-27] MEDS: methylPREDNISolone Sod Succ 40 MG/ML VIAL IVPUSH (08:41)
--- NOTE | 2024-01-27 09:42 | MHC.CM.PN ---
Addendum entered by Luz Gamez 01/27/24 11:52: Patient is discharged today home self care. She has arranged for transport home. Original Note: WANG 01/27/24 FEMALE 63 DX Dyspnea. Patient lives with her SO. She uses a cane for unsteady gait. She states that she is independent with ADLs. HCP is on file and verified. DP home self care. She will arrange for a family member to provide transport home.
--- NOTE | 2024-01-27 10:56 | PM.DS ---
DS: Providers Provider Date of Service: 01/27/24 Date of admission: 01/26/24 18:01 Date of discharge: 01/27/24 Primary care physician: Kait Bowen MD DS: Diagnosis Discharge Diagnosis (1) COPD exacerbation: Status: Acute (2) Tobacco dependence: Status: Acute DS: Summary Hospital Course Hospital Course: Admission note HPI A 63 years old lady with PMH of COPD, Depression, Hx PE, active smoker among others who is presenting to ED with worsening dyspnea and SOB for 2 weeks now. The patient reports 2 weeks of dyspnea with associated cough and wheezing while using her home inhalers with fluctuation. for the last couple of days she is having less cough and mucus but became more dyspneic with minimal activity. Denies any fever, chills, No chest pain, palpitations, SOB, nausea, vomiting, diarrhea or urinary symptoms. In ED treated with IV steroids, nebulizers, O2 supplement with mild response. will need observation for treatment overnight at least. Hospital course Admitted for treatment of Acute COPD exacerbation as CXR not showing any infiltrates. She was Started on IV steroids along with Azitrhromycin and O2 titration as tolerated with usage of Duonebs ATC , Albuterol prn. Improved and was able to ambulate on room air maintaining O2 supplement above 90%. To be discharged on Azithromycin, tapering dose Prednisone, cough medication and Nicotine patches. Smoking , Nicotine dependence. She was advised to quit smoking and she agrees. To use patches while inpatient and will be discharged on. To follow with PCP for cessation plan. Discharge plan Use home nebulizer every 4 hours for the next 3 days then as needed Continue Prednisone as prescribed Cough medications as needed Azithromycin daily Quit smoking; Nicotine patches prescribed Follow with PCP for smoking cessation plan Time Attestation Discharge Coordination Time (in mins): 27 Quality: Safe Use of Opioids Does Pt have an Active Cancer Diagnosis on the Problem List?: No Quality: Stroke Does the patient have a stroke diagnosis?: No Physical Exam Vital Signs: Vital Signs: Last Vital Signs Temp 96.8 F 01/27/24 07:25 Pulse 67 01/27/24 07:48 Resp 16 01/27/24 07:48 BP 146/70 H 01/27/24 07:25 Pulse Ox 95 01/27/24 07:25 O2 Del Method Nasal Cannula 01/27/24 07:25 O2 Flow Rate 2.0 01/27/24 07:25 BMI result Body Mass Index 33.0 Const: Other: Constitutional : Awake, interactive, not in distress Neck : Normal inspection, Supple Cardiovascular : RRR, no JVP, no lower extremity edema Respiratory : good bilateral air entry, no crackles, no wheezes, on RA Gastrointestinal: soft, lax, Normal bowel sounds, Non tender Skin : Warm, Dry Neurological : Alert & oriented x3, No focal deficit DS: Data Data Completed and Pending Labs on day of discharge: Laboratory Results - last 24 hr 01/26/24 01/27/24 13:13 06:17 WBC 11.8 H 10.6 RBC 4.31 4.22 Hgb 12.4 11.9 L Hct 36.7 L 35.6 L MCV 85.2 84.4 MCH 28.8 28.2 MCHC 33.8 33.4 RDW 14.5 14.1 Plt Count 254 247 MPV 9.6 10.0 Immature Gran % (Auto) 0.3 1.0 H Neut % (Auto) 61.4 72.1 Lymph % (Auto) 27.8 20.9 Eaton % (Auto) 5.9 5.8 Eos % (Auto) 4.3 H 0.1 Baso % (Auto) 0.3 0.1 Lymph # (Auto) 3.3 2.2 Eaton # (Auto) 0.7 0.6 Eos # (Auto) 0.5 H 0.0 Baso # (Auto) 0.0 0.0 Abs Immat Gran (auto) 0.04 H 0.11 H Absolute Neuts (auto) 7.3 7.6 Absolute Nucleated RBC 0.000 0.000 Nucleated RBC % (auto) 0.0 0.0 Sodium 141 138 Potassium 3.6 3.7 Chloride 104 102 Carbon Dioxide 24 27 Anion Gap 17 13 BUN 18 H 16 Creatinine 0.90 0.84 Estim Creat Clear Calc 65.2 72.3 Estimated GFR > 60 > 60 Random Glucose 90 144 H Calcium 9.2 9.4 Magnesium 2.3 Total Bilirubin 0.3 Direct Bilirubin 0.2 AST 10 ALT 11 Alkaline Phosphatase 110 Troponin I High Sens < 2.7 B-Natriuretic Peptide 38 Total Protein 7.0 Albumin 3.8 Influenza Type A (PCR) NEGATIVE Influenza Type B (PCR) NEGATIVE RSV RNA Qual (PCR) NEGATIVE SARS-CoV-2 RNA (RT-PCR) NEGATIVE Imaging Chest x-ray: Radiologist's impression: ITS Impressions Chest X-Ray 01/26/24 13:35 IMPRESSION: Bronchial wall thickening can be seen with a small airways process such as asthma or atypical/viral infection. No focal airspace consolidation. Electronically signed by: Angelo Wheeler MD 01/26/2024 04:00 PM EDT RP Discharge Plan Discharge Anticipated Discharge Date/Time: 01/27/24 10:51 Patient Disposition: Home, Self-Care Discharge Diagnosis: COPD exacerbation Referrals: Kait Martínez MD [Primary Care Provider] - 1 Week Discharge Medications: New azithromycin 500 mg Tablet 500 mg PO Q24H Qty: 4 0RF benzonatate 100 mg Capsule 100 mg PO TID PRN (Reason: Cough) Qty: 20 0RF guaifenesin 100 mg/5 mL liquid 200 mg PO Q4H PRN (Reason: congestion) Qty: 473 0RF prednisone 10 mg tablet See Taper PO DIRECTED Qty: 30 0RF Taper: Prednisone 40 mg daily for 3 Days and 0 Hour 30 mg daily for 3 Days and 0 Hour 20 mg daily for 3 Days and 0 Hour 10 mg daily for 3 Days and 0 Hour Rx Instructions: see taper instructions nicotine 21 mg/24 hr Patch 24 Hour 21 mg transdermal DAILY Qty: 30 2RF Continued (DME) nebulizers [facility] [place] See Rx Instructions .Route Qty: 1 0RF Rx Instructions: As directed albuterol sulfate 2.5 mg /3 mL (0.083 %) solution for nebulization 2.5 mg inhalation Q6H PRN (Reason: shortness of breath or wheezing) 30 Days Qty: 360 3RF Anoro Ellipta 62.5-25 mcg/actuation blister with device 1 ea PO DAILY Qty: 60 6RF trazodone 50 mg tablet 50 mg PO BEDTIME PRN (Reason: for insomnia) 90 Days Qty: 90 3RF clonidine HCl 0.2 mg tablet 0.2 mg PO BEDTIME 90 Days Qty: 90 2RF lisinopril-hydrochlorothiazide 10-12.5 mg tablet 1 tab PO DAILY 90 Days Qty: 90 1RF methocarbamol 750 mg tablet 750 mg PO BID PRN (Reason: muscle spasm) 60 Days Qty: 60 3RF fluoxetine 20 mg capsule 60 mg PO DAILY Qty: 90 6RF propranolol 10 mg tablet 10 mg PO BID PRN (Reason: anxiety) 30 Days Qty: 60 2RF hydroxyzine HCl 50 mg tablet 50 mg PO BEDTIME 30 Days Qty: 30 3RF methylphenidate HCl [Concerta] 36 mg tablet extended release 24hr 36 mg PO DAILY 28 Days Qty: 28 0RF Rx Instructions: Partial Fill upon patient request. vitamin B complex Tablet 1 tab PO DAILY buprenorphine-naloxone [Suboxone] 8-2 mg film 1 strip sublingual DAILY albuterol sulfate [Ventolin HFA] 90 mcg/actuation HFA aerosol inhaler 1 puff INHALATION Q4H PRN (Reason: muscle spasm) omeprazole 40 mg capsule,delayed release(DR/EC) 40 mg PO DAILY@0630 clonazepam 1 mg tablet 1 mg PO BEDTIME gabapentin 800 mg tablet 800 mg PO BID@1200,2100 (DME) cane Device See Rx Instructions .Route Qty: 1 0RF Rx Instructions: As directed lidocaine 5 % adhesive patch,medicated 1 patch topical DAILY 30 Days Qty: 30 2RF Rx Instructions: leave on most painful area for up to 12 hrs multivitamin Tablet 1 tab PO DAILY Discharge Orders: Discharge Order (Routine); Ordered 01/27/24 Ordered By: Carito Dominique Diet: Advance to usual diet Activity on Discharge: As tolerated Stand Alone Forms: Patient Portal Discharge page Print Language: Belarusian Care Plan Goals: Use home nebulizer every 4 hours for the next 3 days then as needed Continue Prednisone as prescribed Cough medications as needed Azithromycin daily Quit smoking; Nicotine patches prescribed Follow with PCP for smoking cessation plan Health Concerns: Read below Plan of Treatment: Read below Assessment: Read below
[2024-01-27 11:33] VITALS: PULSE 72; RESP 16; O2SAT 98
[2024-01-27] MEDS: Azithromycin 500 MG TABLET PO (12:58)
== END 2024-01-27 13:43 | disposition home or self-care (01) ==
LOC: HO.ED 17:01 → HO.EDOVER 18:10 → HO.S3 20:29
PROVIDERS: Physician Assistant Medical; Admitting Provider Student in an Organized Health Care Education/Training Program; Emergency Provider Emergency Medicine; PCP Internal Medicine; Visit Provider Student in an Organized Health Care Education/Training Program
DX: J44.1 Chronic obstructive pulmonary disease with (acute) exacerbation (principal); J96.91 Respiratory failure, unspecified with hypoxia; F17.200 Nicotine dependence, unspecified, uncomplicated; R05.9 Cough, unspecified; K21.9 Gastro-esophageal reflux disease without esophagitis; I10 Essential (primary) hypertension; F39 Unspecified mood [affective] disorder; F11.90 Opioid use, unspecified, uncomplicated; Z79.899 Other long term (current) drug therapy; Z03.818 Encounter for observation for suspected exposure to other biological agents ruled out; Z92.29 Personal history of other drug therapy; Z23 Encounter for immunization
CPT/HCPCS: 0241U; 36415; 71045; 80048; 80076; 83735; 83880; 84484; 85025; 90471; 90656; 93005; 96365; 96366; 96372; 96375; 96376; 99221; 99285; J0456; J1650; J2919; J7120

== ENCOUNTER → 2024-01-26 18:01 | Outpatient (BNV) | payer OTHER, SELFPAY | PROVIDERS: Admitting Provider Student in an Organized Health Care Education/Training Program; Emergency Provider Emergency Medicine; PCP Internal Medicine; Visit Provider Student in an Organized Health Care Education/Training Program | DX: J44.1 Chronic obstructive pulmonary disease with (acute) exacerbation (principal); F17.200 Nicotine dependence, unspecified, uncomplicated | CPT/HCPCS: 99222; 99238 ==

== ENCOUNTER 2024-02-08 09:04 | Outpatient (REF) | payer OTHER, SELFPAY ==
--- NOTE | ~2024-02-08 | CT_ITS ---
EXAMINATION: CT LOW-DOSE SCREENING CHEST WITHOUT CONTRAST CLINICAL INFORMATION: Personal history of nicotine dependence. The patient is a current smoker with a 30 pack-year history of smoking. COMPARISON: X-ray chest January 26, 2024. CT chest February 19, 2023. TECHNIQUE: Multidetector volumetric CT imaging of the chest is performed on a Siemens SOMATOM Definition scanner without contrast using low dose technique. Additional 2D coronal and sagittal reformatted images and axial 3D maximum intensity projection (MIP) images are generated on the CT workstation. This CT examination was performed using dose optimization techniques as appropriate, variously including the following: *Automated exposure control *Adjustment of mA and/or kV according to patient size (this includes techniques or standardized protocols for targeted exams where dose is matched to indication/reason for exam; i.e. extremities or head) *Use of iterative reconstruction technique TOTAL EXAM DLP: 61 mGy-cm. CTDIvol: 1.75 mGy. FINDINGS: PULMONARY NODULES: Some scattered calcified granulomas are seen along with a few noncalcified pulmonary nodules, the largest measuring 4 mm in the right lower lobe which is unchanged when compared to prior (5:309 compare prior 5:303). Miner images of all have been saved. LUNGS: Lungs bilaterally symmetrically expanded. There are mild emphysematous changes along with bronchial thickening without bronchiectasis. Some basilar atelectasis is present on the right. No effusion or pneumothorax. Central airways patent. MEDIASTINUM: No mediastinal, hilar or axillary adenopathy or free fluid collection. Unchanged prominent right precarinal 1.1 cm lymph node. CORONARY ARTERY CALCIFICATION: None visualized on this study. THYROID GLAND: Unremarkable to the extent seen. CARDIOVASCULAR STRUCTURES: Aortic and heart size normal. No pericardial effusion. CHEST WALL/AXILLA: Unremarkable. UPPER ABDOMEN: Included portions of the solid organs in the upper abdomen unremarkable on noncontrast imaging. OSSEOUS STRUCTURES: No suspicious focal findings. Degenerative changes are again seen in the spine. CT/CT lung screening IMPRESSION: No findings seen suspicious for malignancy. Stable small pulmonary nodules. ASSESSMENT: 1. Lung-RADS Category 2: Benign appearance or behavior of nodules. N/A 2. Lung-RADS Category S: Negative. There are no clinically significant or potentially clinically significant findings not related to the lungs requiring urgent additional evaluation. RECOMMENDATION: Continued routine annual low-dose CT lung screening in 1 year is recommended. An order for CT CHEST LOW DOSE CANCER SCREENING ([id number]) can be placed. Electronically signed by: Jonah Trujillo MD 03/08/2024 10:50 AM EDT
== END 2024-02-08 09:05 | disposition home or self-care (01) ==
LOC: HO.CT 09:04
PROVIDERS: PCP Internal Medicine; Visit Provider Internal Medicine Pulmonary Disease
DX: Z12.2 Encounter for screening for malignant neoplasm of respiratory organs (principal); Z87.891 Personal history of nicotine dependence
CPT/HCPCS: 71271

== ENCOUNTER 2024-02-10 09:11 | Outpatient (AMB) | payer OTHER, SELFPAY ==
[2024-02-10 09:12] VITALS: BP 108/68; PULSE 102; O2SAT 93; BMI 31.6
--- NOTE | 2024-02-10 09:12 | A.OFFPC_ITS ---
Vital Signs 02/10/24 09:12 Height 5 ft 4 in Weight 184 lb BMI 31.6 BP 108/68 Blood Pressure Location Lt brachial Position Sitting Pulse 102 H Pulse Source Pulse Oximeter Pulse Oximetry (%) 93 Oxygen Delivery Method Room Air Intake Visit Reasons: TCM DYSPNEA AND SOB Tech Writer Required: No Accompanied by: Self / Same As Patient Allergies Penicillins [PENICILLINS] Allergy (Intermediate, Verified 02/10/24 09:13) RASH (CHILDHOOD ALLERGY) Tobacco use date assessed: 05/25/23 Fall risk assessment: 1 Fall in past year Last assessed Fall Risk: 02/10/24 Dental Screening Dental Screen Date: 05/25/23 HPI TCM TCM Information Date of Discharge 01/27/24 Discharged From [facility] HPI Comments History of Present Illness Details 63 y/o female patient who presents to [facility] today for TCM. She was admitted at [facility] on 01/26/24 for COPD Exacerbation and discharged home on 01/27/24 with Z-pack and Steroid taper. She had Chest Xray: Lungs are hyperexpanded. Bronchial wall thickening is present perihilar regions. No airspace consolidation. No pneumothorax or pleural effusion. Cardiac and mediastinal contours are normal. CT-scan chest was done 02/08/24 results still pending. Today Pt reports SOB, dyspnea with breathing, wheezing and ot feeling good in general. She completed her Abx and Steroids. [facility] Medical History Pulmonary embolism SARS-CoV-2 positive Opioid abuse Ganglion cyst Obese Tubular adenoma of colon Otitis externa RUQ abdominal pain GERD (gastroesophageal reflux disease) Acute anxiety Depression Insomnia Surgical History History of esophagogastroduodenoscopy (EGD) Hx of colonoscopy Previous back surgery Family History Father Alzheimer disease Mother Stroke Brother Esophageal cancer Other Mental problem Substance abuse Social History Household Members: Significant Other Household Members Other:: fiancee Housing: Apartment Are you a primary animal caregiver to a significant other at home: No Do you presently have visiting nurse or other home services: No Alcohol intake: current Alcohol intake frequency: former alcohol drinker Alcohol type: hard liquor Patient Tobacco Use Status: Current someday Tobacco user Tobacco use type: Cigarette Cigarettes Per Day: 10 Years Smoked: 40 e-Cigarette/Vaping Use: Former Use Second Hand Smoke Exposure: Yes Substance Use Type: Marijuana Advance Directives Date on File: 03/17/22 service: No Current occupational status: employed 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 1. Little interest or pleasure in doing things: nearly every day 2. Feeling down, depressed, or hopeless: more than half the days 3. Trouble falling or staying asleep, or sleeping too much: nearly every day 4. Feeling tired or having little energy: more than half the days 5. Poor appetite or overeating: nearly every day 6. Feeling bad about yourself - or that you are a failure or have let yourself or your family down: nearly every day 7. Trouble concentrating on things, such as reading the newspaper or watching television: more than half the days 8. Moving or speaking so slowly that other people could have noticed. Or the opposite - being so fidgety or restless that you have been moving around a lot more than usual: nearly every day 9. Thoughts that you would be better off or of hurting yourself in some way: several days Total score: 22 Depression Screening Interpretation: Positive Depression Screening Follow-up: Existing condition and In treatment Depression Screening Done: Yes 31203 - PHQ-9 Billing: Yes Source: Developed by Drs. Dannie Sandoval, Kathryn Bryant, Felipe Paulson and colleagues, with an educational rupal from [employer]. Thrive Questionnaire Date Thrive assessed: 01/27/24 Are you currently unemployed and looking for a job?: No AUDIT C Alcohol Use Questionnaire (AUDIT-C) 1. How often do you have a drink containing alcohol?: Never 3. How often do you have six or more drinks on one occasion?: Never Total Score: 0 FOREIGN-7 AMB Questionnaire FOREIGN-7 Date FOREIGN - 7 assessed: 05/25/23 Source: Developed by Drs. Dannie Sandoval, Kathryn Bryant, Felipe Paulson and colleagues, with an educational rupal from [employer]. Review of Systems Const All systems reviewed & are unremarkable except as noted in HPI and below Physical exam (Primary Care) Vital Signs: Last Vital Signs Pulse 102 H 02/10/24 09:12 BP 108/68 02/10/24 09:12 Pulse Ox 93 02/10/24 09:12 Oxygen Delivery Method Room Air 02/10/24 09:12 BMI result Body Mass Index 31.6 Tobacco/Smoking Status: Tobacco use Status Tobacco use date assessed 05/25/23 02/10/24 09:17 Patient Tobacco Use Status Current someday Tobacco 02/10/24 09:17 Tobacco use type Cigarette 02/10/24 09:17 e-Cigarette/Vaping Use Former Use 02/10/24 09:17 PHQ-9: PHQ-9 Score PHQ-9: Total score 22 02/10/24 09:17 Depression Screening Interpretation: Positive Depression Screening Follow-up: Existing condition and In treatment Thrive Assessment: Date of Thrive Assessment Date Thrive assessed 01/27/24 02/10/24 09:17 Const General: cooperative and no acute distress; No comfortable Nutritional Appearance: obese Orientation/consciousness: patient oriented x3 Resp Effort & Inspection: normal respiratory effort and Actively coughing Auscultation: no crackles, no rales, rhonchi and wheezes Cardio Heart sounds: S1 normal heart sound present and S2 normal heart sound present Neuro General: patient oriented x3 Assessment and Plan Assessment & Plan (1) COPD with acute exacerbation: Code(s): J44.1 - Chronic obstructive pulmonary disease with (acute) exacerbation Plan: Ordered Doxy for 10 days Ordered Benzonatate She is Allergic to PCN, so no Amoxicillin. CT- chest pending, will still treat empirically for Pneumonia. (2) Wheezing on auscultation: Code(s): R06.2 - Wheezing Plan: Continue on current COPD medications and albuterol rescue inhaler PRN for wheezing. Medications: New doxycycline hyclate 100 mg PO DAILY 10 days 10 tabs 0RF J44.1 - Chronic obstructive pulmonary disease with (acute) exacerbation, R06.2 - Wheezing prednisone 50 mg PO DAILY 5 days 5 tabs 0RF R06.2 - Wheezing Refilled benzonatate 100 mg PO TID PRN 90 caps 0RF Cough J44.1 - Chronic obstructive pulmonary disease with (acute) exacerbation, R06.2 - Wheezing Coding Level of Care Code TCM Mod MDM <= 14 Days Diagnoses COPD with acute exacerbation J44.1 Wheezing on auscultation R06.2 Time Spent (min) 20 Comment Spent reviewing hospital notes.
== END 2024-02-10 11:38 | disposition home or self-care (01) ==
PROVIDERS: PCP Internal Medicine; Visit Provider Nurse Practitioner Family
DX: J44.1 Chronic obstructive pulmonary disease with (acute) exacerbation (principal); R06.2 Wheezing

== ENCOUNTER → 2024-02-10 09:11 | Outpatient (BNVA) | payer OTHER, SELFPAY | PROVIDERS: PCP Internal Medicine; Visit Provider Nurse Practitioner Family | DX: J44.1 Chronic obstructive pulmonary disease with (acute) exacerbation (principal); R06.2 Wheezing | CPT/HCPCS: 96127; 99212 ==

== ENCOUNTER 2024-02-22 12:47 | Outpatient (AMB) | payer OTHER, SELFPAY ==
--- NOTE | 2024-02-22 12:51 | A.OFFVIS_ITS ---
Vital Signs 02/22/24 12:52 Height 5 ft 4 in Weight 185 lb 4 oz BMI 31.8 BP 112/68 Blood Pressure Location Rt brachial Position Sitting Respiration 16 Pulse 76 Pulse Source Palpation Intake Visit Reasons: INP-Tremor, unspecified Intake Note: New pt presents to the office for consultation for tremors. Bobbin Hauler Required: No Allergies Penicillins [PENICILLINS] Allergy (Intermediate, Verified 02/22/24 12:52) RASH (CHILDHOOD ALLERGY) Medication List - Last Reconciled 02/22/24 by Bibiana Spence MD albuterol sulfate 90 mcg/actuation (Ventolin HFA) 1 puff inhalation Q4H PRN albuterol sulfate 2.5 mg (3 mL) inhalation Q6H PRN 30 days buprenorphine-naloxone 8-2 mg (Suboxone) 1 strip sublingual DAILY cane As directed clonazepam 1 mg PO BEDTIME clonidine HCl 0.2 mg PO BEDTIME 90 days fluoxetine 60 mg (3 x 20 mg) PO DAILY gabapentin 800 mg PO BID@1200,2100 hydroxyzine HCl 50 mg PO BEDTIME 30 days lidocaine 5% 1 patch topical DAILY 30 days lisinopril-hydrochlorothiazide 10-12.5 mg 1 tab PO DAILY 90 days methocarbamol 750 mg PO BID PRN 60 days methylphenidate HCl ER (Concerta) 36 mg PO DAILY 28 days multivitamin 1 tab PO DAILY nebulizers As directed omeprazole 40 mg PO DAILY@0630 prednisone 50 mg PO DAILY 5 days propranolol 10 mg PO BID PRN 30 days trazodone 50 mg PO BEDTIME PRN 90 days umeclidinium-vilanterol 62.5-25 mcg/actuation (Anoro Ellipta) 1 ea PO DAILY vitamin B complex 1 tab PO DAILY HPI Comments Details: 63y/o Right handed female comes for evaluation of tremors. She started noticing tremors in her hands about 6 mths ago and feels she has inner tremors in her whole body.she denies any stressors, no change in her medications etc. The tremors are mostly with posture and action. SHe also has some head, voice tremors.No change in voice . SHe denies any swallowing issues.she has trouble writing , using utensils etc. she also describes intermittent involuntary muscle spasms or jerks.she is not clear of the muscle spasms are at rest or sleeping she has chronic sleep issues and takes medications to help.she has snoring, frequent arousals and excessive dyatime fatigue. she has h/o anxiety depression and managed with medications. she has h/o chronic back pain she denies any fh/o tremors. [facility] Medical History (Updated 02/22/24 @ 13:26 by Bibiana Spence MD) Hypersomnia Snoring Saccular aneurysm Pulmonary embolism SARS-CoV-2 positive Opioid abuse Ganglion cyst Obese Tubular adenoma of colon Otitis externa RUQ abdominal pain GERD (gastroesophageal reflux disease) Acute anxiety Depression Insomnia Surgical History History of esophagogastroduodenoscopy (EGD) Hx of colonoscopy Previous back surgery Family History Father Alzheimer disease Mother Stroke Brother Esophageal cancer Other Mental problem Substance abuse Social History Household Members: Significant Other Household Members Other:: fiancee Housing: Apartment Are you a primary health care sanitary technician to a significant other at home: No Do you presently have visiting nurse or other home services: No Alcohol intake: current Alcohol intake frequency: former alcohol drinker Alcohol type: hard liquor Patient Tobacco Use Status: Current someday Tobacco user Tobacco use type: Cigarette Cigarettes Per Day: 10 Years Smoked: 40 e-Cigarette/Vaping Use: Former Use Second Hand Smoke Exposure: Yes Substance Use Type: Marijuana Advance Directives Date on File: 03/17/22 service: No Current occupational status: employed 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 General: patient oriented x3, tone normal, moves all extremities and no focal motor deficits Cranial nerves: Yes Facial sensation intact/muscles of mastication intact, Yes Equal, round and reactive pupils present, Yes Bilaterally intact EOM present, Yes Nystagmus not present, Yes Normal facial strength present, Yes Midline tongue present, Yes Symmetric palate elevation present and Yes Ability to bilaterally elevate shoulders present Cognition (Neuro): normal cognition Motor exam (neuro): 5/5 motor strength present throughout and Normal motor muscle tone present throughout Deep tendon reflexes (DTR's): Right triceps reflex intensity grade: 1+, Left triceps reflex intensity grade: 1+, Rt Biceps (C5, C6): 1+, Left biceps reflex intensity grade: 1+, Right brachioradialis reflex intensity grade: 1+, Left brachioradialis reflex intensity grade: 1+, Right patellar reflex intensity grade: 1+ and Left patellar reflex intensity grade: 1+ Coordination: [id number] test normal Quality Reporting (2019) Adult ([facility] 138/07/15/68) Smoking risk assessment performed?: Yes Patient Tobacco Use Status: Current someday Tobacco user Results Reviewed Results Reviewed: CTA 10/14 A 3.5 mm saccular aneurysm projects medially from the proximal right cavernous ICA segment on image 96 of series 13. Assessment & Plan Assessment & Plan (1) Tremor: Comment: essential vs exaggerated physiological tremors Code(s): R25.1 - Tremor, unspecified Category: Medical (2) Saccular aneurysm: Comment: seen by Neurosurgery - clinical follow up Code(s): I67.1 - Cerebral aneurysm, nonruptured Category: Medical (3) Snoring: Code(s): R06.83 - Snoring Category: Medical (4) Hypersomnia: Code(s): G47.10 - Hypersomnia, unspecified Category: Medical Plan No evidence of Parkinsons on todays exam I will trial her on primidone 50mg 1/2 tab bid and f/u. Propranolol 10 mg as needed Home sleep study to r/o sleep apnea. Orders: Orders RT home sleep study Today G47.10 - Hypersomnia, unspecified, R06.83 - Snoring Medications: New primidone (1/2 x 50 mg) 25 mg orally 1/2 tab qama nd q 2 pm; 30 tabs 6RF Discontinued prednisone Discontinued Reason: Patient no longer taking 50 mg PO DAILY 5 days 5 tabs 0RF R06.2 - Wheezing Coding Level of Care Code New Pt Level 4 (28859) Complex EM visit Add On G2211 Diagnoses Tremor R25.1 Saccular aneurysm I67.1 Snoring R06.83 Hypersomnia G47.10
[2024-02-22 12:52] VITALS: BP 112/68; PULSE 76; RESP 16; BMI 31.8
== END 2024-02-22 13:33 | disposition home or self-care (01) ==
PROVIDERS: PCP Physician Assistant; Visit Provider Psychiatry & Neurology Neurology
DX: R25.1 Tremor, unspecified (principal); I67.1 Cerebral aneurysm, nonruptured; R06.83 Snoring; G47.10 Hypersomnia, unspecified
CPT/HCPCS: 99204; G2211

== ENCOUNTER → 2024-02-22 12:47 | Outpatient (BNVA) | payer OTHER, SELFPAY | PROVIDERS: PCP Physician Assistant; Visit Provider Psychiatry & Neurology Neurology | DX: R25.1 Tremor, unspecified (principal); I67.1 Cerebral aneurysm, nonruptured; R06.83 Snoring; G47.10 Hypersomnia, unspecified; R06.2 Wheezing | CPT/HCPCS: 99202 ==

== ENCOUNTER 2024-02-24 06:04 | Emergency (ER) | payer OTHER, SELFPAY ==
--- NOTE | ~2024-02-24 | XR_ITS ---
EXAMINATION: X-ray right shoulder X-ray right forearm CLINICAL INFORMATION: Pain. COMPARISON: X-ray right shoulder 01/03/2020 TECHNIQUE: Shoulder 4 views. Forearm 2 views. FINDINGS: Right shoulder: Mild-moderate acromioclavicular arthritis. Mild inferior glenoid spurring. Degenerative-appearing lucency/cyst in the lateral humeral head/greater tuberosity. No visible acute fracture or dislocation. No abnormal soft tissue calcification. No suspicious lung findings. Right forearm: No visible acute fracture or malalignment. No aggressive bone lesions seen. No abnormal soft tissue calcification. No radiopaque foreign bodies... XR/XR forearm RT 2V IMPRESSION: Right shoulder: Arthritis as above. No radiographic evidence of acute osseous abnormality. Right forearm: No radiographic evidence of acute osseous abnormality. Electronically signed by: Kush Rose MD 02/24/2024 09:59 AM EDT
--- NOTE | ~2024-02-24 | XR_ITS ---
EXAMINATION: X-ray right shoulder X-ray right forearm CLINICAL INFORMATION: Pain. COMPARISON: X-ray right shoulder 01/03/2020 TECHNIQUE: Shoulder 4 views. Forearm 2 views. FINDINGS: Right shoulder: Mild-moderate acromioclavicular arthritis. Mild inferior glenoid spurring. Degenerative-appearing lucency/cyst in the lateral humeral head/greater tuberosity. No visible acute fracture or dislocation. No abnormal soft tissue calcification. No suspicious lung findings. Right forearm: No visible acute fracture or malalignment. No aggressive bone lesions seen. No abnormal soft tissue calcification. No radiopaque foreign bodies... XR/XR shoulder RT min 2V IMPRESSION: Right shoulder: Arthritis as above. No radiographic evidence of acute osseous abnormality. Right forearm: No radiographic evidence of acute osseous abnormality. Electronically signed by: Kush Rose MD 02/24/2024 09:59 AM EDT
[2024-02-24 06:10] VITALS: BP 95/49; PULSE 77; RESP 18; TEMP 36.7; O2SAT 90; BMI 31.9
--- NOTE | 2024-02-24 06:35 | ED_ITS ---
HPI - Extremity Problem General Chief complaint: Extremity Injury, Upper Stated complaint: R swollen arm and pain Time Seen by Provider: 02/24/24 06:34 Source: patient Mode of arrival: ambulatory Limitations: no limitations History of Present Illness ED Provider: Franchesca Nicole PA-C HPI Narrative: 63 yo female presents with a few months of right upper extremity pain. She says that pain is worse around right dorsal forearm, right shoulder, denies trauma to area. Pain is constant and has been worsening over the past few months. Has full ROM at both joints but with associated pain. Pain is 8/10 and does not radiate up or down extremity. Says that she feels as though all of her muscles hurt, says that she feels like she cannot walk normally due to generalized pain. MD Complaint: extremity pain Onset (ago): month(s) Pain Consistency: constant Location: right and upper extremity Quality: aching, dull and constant Radiation: none Relieving factors: nothing Exacerbating factors: nothing Associated symptoms: denies other symptoms Related Data Home Medications ?Medication ?Instructions ?Recorded ?Confirmed multivitamin 1 tab PO DAILY 02/10/22 02/22/24 buprenorphine 8 mg-naloxone 2 mg 1 strip sublingual DAILY 03/13/22 02/22/24 sublingual film (Suboxone) vitamin B complex 1 tab PO DAILY 03/23/22 02/22/24 albuterol sulfate 90 mcg/actuation 1 puff inhalation Q4H PRN muscle 01/26/24 02/22/24 aerosol inhaler (Ventolin HFA) spasm clonazepam 1 mg tablet 1 mg PO BEDTIME 01/26/24 02/22/24 omeprazole 40 mg capsule,delayed 40 mg PO DAILY@0630 01/26/24 02/22/24 release gabapentin 800 mg tablet 800 mg PO BID@1200,2100 02/22/24 02/22/24 Previous Rx's ?Medication ?Instructions ?Recorded nebulizers #1 ea 03/16/22 cane #1 ea 03/18/22 albuterol sulfate 2.5 mg/3 mL 2.5 mg (3 mL) inhalation Q6H PRN 06/27/22 (0.083 %) solution for nebulization shortness of breath or wheezing 30 days #360 mL umeclidinium 62.5 mcg-vilanterol 1 ea PO DAILY #60 ea 02/15/23 25 mcg/actuation powdr for inhalation (Anoro Ellipta) lisinopril 10 1 tab PO DAILY 90 days #90 tabs 10/21/23 mg-hydrochlorothiazide 12.5 mg tablet methocarbamol 750 mg tablet 750 mg PO BID PRN muscle spasm 60 11/21/23 days #60 tabs fluoxetine 20 mg capsule 60 mg (3 x 20 mg) PO DAILY #90 caps 12/06/23 lidocaine 5 % topical patch 1 patch topical DAILY 30 days #30 12/07/23 ea propranolol 10 mg tablet 10 mg PO BID PRN anxiety 30 days 12/20/23 #60 tabs hydroxyzine HCl 50 mg tablet 50 mg PO BEDTIME 30 days #30 tabs 01/08/24 clonidine HCl 0.2 mg tablet 0.2 mg PO BEDTIME 90 days #90 tabs 02/15/24 methylphenidate HCl 36 mg 36 mg PO DAILY 28 days #28 tabs 02/16/24 tablet,extended release 24 hr (Concerta) trazodone 50 mg tablet 50 mg PO BEDTIME PRN for insomnia 02/21/24 90 days #90 tabs primidone 50 mg tablet 25 mg (1/2 x 50 mg) PO .COMPLEX 02/22/24 #30 tabs prednisone 20 mg tablet 20 mg PO DAILY 12 days #26 tabs 02/24/24 Allergies Allergy/AdvReac Type Severity Reaction Status Date / Time Penicillins [PENICILLINS] Allergy Intermediate RASH Verified 02/24/24 06:16 (CHILDHOOD ALLERGY) Review of Systems 2 Constitutional: Constitutional: Reports no additional constitutional complaints, Denies chills, Denies fever(s) and Denies night sweats Eyes: Eyes: Reports no additional eye complaints, Denies blurry vision, Denies change in vision, Denies diplopia, Denies eye discharge, Denies loss of vision and Denies eye pain ENT: Denies dizziness Cardiovascular: Cardiovascular: Reports no additional cardiovascular complaints, Denies chest pain, Denies lightheadedness, Denies Loss of Consciousness and Denies dyspnea Respiratory: Respiratory: Reports no additional respiratory complaints and Denies dyspnea Gastrointestinal: Gastrointestinal: Reports no additional gastrointestinal complaints, Denies abdominal pain, Denies melena, Denies hematochezia, Denies change in bowel habits and Denies change in stool character Genitourinary: Genitourinary: Denies hematuria, Denies urinary frequency, Denies dysuria, Denies urinary incontinence, Denies urinary hesitancy and Denies urinary urgency Musculoskeletal: Musculoskeletal: Reports abnormal gait (per her baseline), Reports myalgias, Reports limited range of motion and Reports other Comments: Pain to right forearm and right shoulder. Neurologic: Reports abnormal gait (per her baseline), Denies dizziness and Denies loss of vision Psychiatric: Psychiatric: Reports no additional psychiatric complaints Endocrine: Endocrine: Reports no additional endocrine complaints Hematologic/Lymphatic: Hematologic/Lymphatic: Reports no additional hematologic/lymphatic complaints Allergic/Immunologic: Allergic/Immunologic: Reports no additional allergic/immunologic complaints [facility] Past Medical History Attestation statement: The following information was validated with the patient. Source: old records reviewed and nursing notes reviewed Medical History Hypersomnia Snoring Saccular aneurysm Pulmonary embolism SARS-CoV-2 positive Opioid abuse Ganglion cyst Obese Tubular adenoma of colon Otitis externa RUQ abdominal pain GERD (gastroesophageal reflux disease) Acute anxiety Depression Insomnia Surgical History History of esophagogastroduodenoscopy (EGD) Hx of colonoscopy Previous back surgery Family History Family History Father Alzheimer disease Mother Stroke Brother Esophageal cancer Other Mental problem Substance abuse Social History Social History Household Members: Significant Other Household Members Other:: fiancee Housing: Apartment Are you a primary care transitions nurse to a significant other at home: No Do you presently have visiting nurse or other home services: No Alcohol intake: current Alcohol intake frequency: does not drink Alcohol type: hard liquor Patient Tobacco Use Status: Current someday Tobacco user Tobacco use type: Cigarette Cigarettes Per Day: 10 Years Smoked: 40 Smoked in Last 30 Days: No e-Cigarette/Vaping Use: Former Use Second Hand Smoke Exposure: Yes Use of substances other than those prescribed or required for medical reasons: No Substance Use Type: Marijuana Advance Directives: Yes Advance Directives on File: Yes Advance Directives Date on File: 03/17/22 service: No Current occupational status: employed 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[employer], 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 Sexual orientation: Straight/Heterosexual Cognitive needs: Yes (cane) Hearing needs: No Vision needs: Yes (Glasses) Physical Exam 2 Vital Signs: Vital Signs: Last Vital Signs Temp 98.4 F 02/24/24 09:13 Pulse 58 02/24/24 09:13 Resp 18 02/24/24 09:13 BP 89/43 L 02/24/24 09:13 Pulse Ox 95 02/24/24 09:13 O2 Del Method Room Air 02/24/24 09:13 BMI result Body Mass Index 31.9 Const: General: cooperative, no acute distress, alert and awake Nutritional Appearance: well nourished Orientation/consciousness: patient oriented x3 Limitations: no limitations HEENT: Head: Yes normal to inspection and Yes atraumatic Ears: hearing grossly normal bilaterally and external ears normal General nose exam: Normal external nose present, no nasal discharge noted and no epistaxis Face and sinus: Yes normal facial exam, No abrasion and No laceration Mouth: Normal oral and palatal mucosa present, no drooling and no muffled voice Eyes: General: appearance normal, both eyes and all related structures P eriorbital: periorbital findings normal Eyelids: Yes eyelids normal C onjunctivae: conjunctivae normal Pupils: Equal, round and reactive pupils present EOM: EOMs intact bilaterally Neck: Neck: Yes normal visual inspection, Yes full ROM and Yes no lymphadenopathy Chest: Chest palpation & inspection: normal inspection of the chest Resp: Effort & Inspection: normal respiratory effort and able to speak in complete sentences Auscultation: clear to auscultation bilaterally Cardio: Jugular venous distension: no JVD Rate: regular rate Rhythm: r egular rhythm Heart sounds: S1 normal heart sound present and S2 normal heart sound present GI: Inspection: Yes normal to inspection Neuro: General: patient oriented x3 and moves all extremities Cranial nerves: Yes Equal, round and reactive pupils present Cognition (Neuro): n ormal cognition Extrem: Other: TTP over right forearm, no redness, edema, full ROM at hand and fingers. Tender with movement at right shoulder joint, no edema or erythema. No numbness or tingling in right upper extremity. General: Yes normal to inspection and Yes capillary refill normal Right upper extremity: elbow/forearm Details: tenderness and distal pulses intact L eft upper extremity: normal to inspection Right lower extremity: normal to inspection Left lower extremity: normal to inspection Psych: Appearance: grossly normal Mental Status: mental status grossly normal Affect: normal affect Attitude: cooperative Thought process: N ormal thought process present Thought content: Normal thought content present Insight: Good insight present (Psych) Medical Decision Making Medical Decision Making [facility] Narrative: 63 yo female with history of COPD, OUD in remission, HTN, PE (on Eliquis), and ADHD presents with months of right upper extremity pain, body pain, and brain fog. Patient's physical exam was as noted in the physical exam portion of this note. Patient's blood work was unremarkable. Patient's right shoulder and forearm x-rays showed no acute process. I explained my physical exam findings as well as all test results to the patient. I answered all questions asked by the patient. Patient clarified that the brain fog she currently has is consistent with her baseline. I stressed the importance of the patient taking her medication as directed (either prescribed or as the over the counter packaging recommends). I stressed the importance of the patient following up with her primary care provider and an orthopedic provider. I stressed the importance of the patient returning to the emergency department immediately if her symptoms were to worsen or if she were to develop any dizziness, shortness of breath, difficulty breathing, chest pain, blurry vision, loss of vision, nausea, vomiting, abdominal pain, fever, chills, back pain, or any other complaints. Patient verbalized agreement and understanding with this treatment plan and discharge. Differential Diagnosis Differential Diagnoses: The differential diagnosis associated with the presentation includes Arthritis Osteoarthritis Musculoskeletal pain Admission/Observation Consideration of admission/observation: Escalation of care including admission/observation considered Patient would have been admitted to the hospital had her work up had any findings where hospital admission was appropriate and her clinical presentation warranted hospital admission. Lab Data [facility] Lab Attestation statement: I reviewed the patient's lab results. My interpretation of these results are in the MDM Rationale portion of this note. 02/24/24 07:43 02/24/24 07:43 Labs: Lab Results 02/24/24 Range/Units 07:43 WBC 11.3 H (4.8-10.8) X10*3/uL RBC 3.58 L (4.20-5.50) X10*6/uL Hgb 10.5 L (12.0-16.0) g/dl Hct 30.9 L (37.0-47.0) % MCV 86.3 (80.0-98.0) fL MCH 29.3 (27.0-33.0) pg MCHC 34.0 (31.0-35.0) g/dl RDW 15.3 (11.0-16.0) % Plt Count 150 L D (160-400) X10*3/uL MPV 9.7 (9.4-12.3) fL Immature Gran % (Auto) 0.4 (0.0-0.4) % Neut % (Auto) 58.8 (45-73) % Lymph % (Auto) 31.6 (20-40) % [facility] % (Auto) 6.7 (2-11) % Eos % (Auto) 2.2 (0-4) % Baso % (Auto) 0.3 (0-2) % Lymph # (Auto) 3.6 (1.2-4.9) X10*3/uL [facility] # (Auto) 0.8 (0.1-1.2) X10*3/uL Eos # (Auto) 0.3 (0.0-0.4) X10*3/uL Baso # (Auto) 0.0 (0.0-0.2) X10*3/uL Abs Immat Gran (auto) 0.05 H (0.00-0.03) X10*3/uL Absolute Neuts (auto) 6.6 (2.0-8.3) x10*3/uL Absolute Nucleated RBC 0.000 (0.0-0.012) X10*3/uL Nucleated RBC % (auto) 0.0 (0.0-0.2) /100WBC Sodium 136 (135-145) mmol/L Potassium 3.8 (3.3-5.1) mmol/L Chloride 101 (96-108) mmol/L Carbon Dioxide 27 (22-29) mmol/L Anion Gap 12 (12-20) BUN 25 H (9-16) mg/dL Creatinine 1.32 (0.5-1.4) mg/dL Estim Creat Clear Calc 45.2 Estimated GFR 41 Random Glucose 102 (60-115) mg/dL Calcium 8.7 D (8.4-10.2) mg/dL Total Bilirubin 0.3 (0.0-1.0) mg/dL AST 13 (5-31) U/L ALT 10 (0-31) U/L Alkaline Phosphatase 88 (39-117) U/L Total Creatine Kinase 107 (26-140) U/L Total Protein 5.8 L (6.5-8.0) g/dL Albumin 3.3 L (3.5-5.0) g/dL Independent Interpretation I performed an independent interpretation of an: Plain X-Ray Interpretation: My interpretation is in agreement with the radiologist's impression of these imaging studies. L EXAMINATION: X-ray right shoulder X-ray right forearm CLINICAL INFORMATION: Pain. COMPARISON: X-ray right shoulder 01/03/2020 TECHNIQUE: Shoulder 4 views. Forearm 2 views. FINDINGS: Right shoulder: Mild-moderate acromioclavicular arthritis. Mild inferior glenoid spurring. Degenerative-appearing lucency/cyst in the lateral humeral head/greater tuberosity. No visible acute fracture or dislocation. No abnormal soft tissue calcification. No suspicious lung findings. Right forearm: No visible acute fracture or malalignment. No aggressive bone lesions seen. No abnormal soft tissue calcification. No radiopaque foreign bodies. XR/XR forearm RT 2V IMPRESSION: Right shoulder: Arthritis as above. No radiographic evidence of acute osseous abnormality. Right forearm: No radiographic evidence of acute osseous abnormality. Electronically signed by: Kush Rose MD 02/24/2024 09:59 AM EDT Dictated By: Kush Rose MD Signed By: Electronically signed by Kush Rose MD 02/24/24 0959 Radiology Impression Discussion of test interpretation with radiology: I have reviewed the radiologist's reading. Discharge Plan Discharge Clinical Impression: Shoulder arthralgia, Musculoskeletal pain Patient Disposition: Home, Self-Care Instructions: Musculoskeletal Pain (ED), Shoulder Pain (ED) Additional Instructions: Follow up with your primary care provider and an orthopedic provider. Return to the emergency department immediately if your symptoms worsen or if you develop any dizziness, shortness of breath, difficulty breathing, chest pain, blurry vision, loss of vision, nausea, vomiting, abdominal pain, fever, chills, back pain, or any other complaints. Prescriptions: New prednisone 20 mg tablet 20 mg PO DAILY 12 Days Qty: 26 0RF Rx Instructions: Take 3 tablets for 5 days THEN; Take 2 tablets for 4 days THEN; Take 1 tablet for 3 days No Action (DME) nebulizers Misc See Rx Instructions .Route Qty: 1 0RF Rx Instructions: As directed albuterol sulfate 2.5 mg /3 mL (0.083 %) solution for nebulization 2.5 mg inhalation Q6H PRN (Reason: shortness of breath or wheezing) 30 Days Qty: 360 3RF Anoro Ellipta 62.5-25 mcg/actuation blister with device 1 ea PO DAILY Qty: 60 6RF lisinopril-hydrochlorothiazide 10-12.5 mg tablet 1 tab PO DAILY 90 Days Qty: 90 1RF methocarbamol 750 mg tablet 750 mg PO BID PRN (Reason: muscle spasm) 60 Days Qty: 60 3RF fluoxetine 20 mg capsule 60 mg PO DAILY Qty: 90 6RF propranolol 10 mg tablet 10 mg PO BID PRN (Reason: anxiety) 30 Days Qty: 60 2RF hydroxyzine HCl 50 mg tablet 50 mg PO BEDTIME 30 Days Qty: 30 3RF clonidine HCl 0.2 mg tablet 0.2 mg PO BEDTIME 90 Days Qty: 90 2RF methylphenidate HCl [Concerta] 36 mg tablet extended release 24hr 36 mg PO DAILY 28 Days Qty: 28 0RF Rx Instructions: Partial Fill upon patient request. trazodone 50 mg tablet 50 mg PO BEDTIME PRN (Reason: for insomnia) 90 Days Qty: 90 0RF vitamin B complex Tablet 1 tab PO DAILY buprenorphine-naloxone [Suboxone] 8-2 mg film 1 strip sublingual DAILY albuterol sulfate [Ventolin HFA] 90 mcg/actuation HFA aerosol inhaler 1 puff INHALATION Q4H PRN (Reason: muscle spasm) omeprazole 40 mg capsule,delayed release(DR/EC) 40 mg PO DAILY@0630 clonazepam 1 mg tablet 1 mg PO BEDTIME gabapentin 800 mg tablet 800 mg PO BID@1200,2100 Rx Instructions: pt confirms 1600mg bid (DME) cane Device See Rx Instructions .Route Qty: 1 0RF Rx Instructions: As directed lidocaine 5 % adhesive patch,medicated 1 patch topical DAILY 30 Days Qty: 30 2RF Rx Instructions: leave on most painful area for up to 12 hrs multivitamin Tablet 1 tab PO DAILY primidone 50 mg tablet 25 mg PO .COMPLEX Qty: 30 6RF Rx Instructions: 25 mg orally 1/2 tab qama nd q 2 pm; Referrals: Amari Mckeon PA-C [Primary Care Provider] - Interventions: ED Discharge Assessment Last Done: 02/24/24 09:13 Discharge Date/Time: 02/24/24 09:15 Print Language: Azeri
--- NOTE | 2024-02-24 07:00 | PC.NURSE ---
Report taken from Sushila Vences RN
[2024-02-24 07:47] LABS: MANUAL DIFF FLAG NO
[2024-02-24 07:48] LABS: Basophils Percent Auto 0.3 % (0-2); Eosinophils Absolute Auto 0.3 X10*3/uL (0.0-0.4); Eosinophils Percent Auto 2.2 % (0-4); Hematocrit 30.9 % (37.0-47.0); Hemoglobin 10.5 g/dl (12.0-16.0); Imm Gran Abs Auto 0.05 X10*3/uL (0.00-0.03); Imm Gran Pct Auto 0.4 % (0.0-0.4); Lymphocytes Absolute Auto 3.6 X10*3/uL (1.2-4.9); Lymphocytes Percent Auto 31.6 % (20-40); Mean Corpuscular Hemoglobin 29.3 pg (27.0-33.0); Mean Corpuscular Volume 86.3 fL (80.0-98.0); Mean Platelet Volume 9.7 fL (9.4-12.3); Monocytes Absolute Auto 0.8 X10*3/uL (0.1-1.2); Monocytes Percent Auto 6.7 % (2-11); Neutrophils Absolute Auto 6.6 x10*3/uL (2.0-8.3); Neutrophils Percent Auto 58.8 % (45-73); Platelet Count 150 X10*3/uL (160-400); Red Blood Count 3.58 X10*6/uL (4.20-5.50); Red Cell Distribution Width 15.3 % (11.0-16.0); White Blood Count 11.3 X10*3/uL (4.8-10.8)
[2024-02-24 08:09] LABS: Alanine Aminotransferase 10 U/L (0-31); Albumin Level 3.3 g/dL (3.5-5.0); Alkaline Phosphatase 88 U/L (39-117); Anion Gap 12 (12-20); Aspartate Amino Transferase 13 U/L (5-31); Bilirubin Total 0.3 mg/dL (0.0-1.0); Blood Urea Nitrogen 25 mg/dL (9-16); Calcium 8.7 mg/dL (8.4-10.2); Carbon Dioxide 27 mmol/L (22-29); Chloride 101 mmol/L (96-108); Creatinine Clr Calc Pharmacy 45.2; Estimated Glomerular Filt Rate 41; Glucose Random 102 mg/dL (60-115); Potassium 3.8 mmol/L (3.3-5.1); Sodium 136 mmol/L (135-145); Total Protein 5.8 g/dL (6.5-8.0)
[2024-02-24 09:13] VITALS: BP 89/43; PULSE 58; RESP 18; TEMP 36.9; O2SAT 95
--- NOTE | 2024-02-24 09:14 | PC.NURSE ---
Pt.'s BP low prior to discharge- 89/43 with a MAP of 59. Pt. states that she does not feel symptomatic or dizzy, and that her BP tends to run on the lower side historically. AGNIESZKA Stanley notified and aware- OK to discharge.
== END 2024-02-24 09:15 | disposition home or self-care (01) ==
PROVIDERS: Physician Assistant Medical; Emergency Provider Student in an Organized Health Care Education/Training Program; PCP Physician Assistant
DX: M25.511 Pain in right shoulder (principal); M79.10 Myalgia, unspecified site; Z86.711 Personal history of pulmonary embolism; Z79.01 Long term (current) use of anticoagulants; Z79.899 Other long term (current) drug therapy
CPT/HCPCS: 36415; 73030; 73090; 80053; 82550; 85025; 99283; 99284

== ENCOUNTER 2024-03-01 12:48 | Outpatient (REF) | payer OTHER, SELFPAY ==
--- NOTE | ~2024-03-01 | MR_ITS ---
EXAMINATION: MR LUMBAR SPINE WITHOUT AND WITH CONTRAST CLINICAL INFORMATION: Low back pain, shooting down legs bilaterally. Numbness and tingling right leg. Symptoms x years. No injuries. 2001 fusion L4-5. COMPARISON: No prior MRI. Correlation made with plain films 03/12/2022. TECHNIQUE: Multiplanar multisequence MR imaging of the cervical spine was done prior to and without the administration 9 mL IV Gadavist. Examination was performed on a 1.5 Jacki Siemens unit, using standard sequences. Exam submitted for review 05/02/2024 8:19 AM [facility]. FINDINGS: CORONAL ALIGNMENT: -There is a very mild left convex scoliosis, apex at L4. SAGITTAL ALIGNMENT: -Normal lordosis. No subluxations. Anatomic alignment. LUMBOSACRAL JUNCTION: -Normal. There are 5 [id number] lumbar-type vertebral bodies. VERTEBRAL BODIES/BONE MARROW: -Fusion of L4-5 with dual titanium cages in place. The metal hardware creates localized susceptibility artifact, obscuring immediately adjacent soft tissue and bone. -There have been L4 laminectomies. -No compression deformities or acute fractures. -There is mild edema and enhancement in the right pedicle of L4. This is likely secondary to stress response. -Mild edematous endplate changes present at T11-T12. -No abnormal infiltrating bone marrow signal. -There is a hemangioma in the central inferior L3 vertebral body. -No additional abnormal bone marrow enhancement. DISCS: -Severe loss of disc height and signal at L5-S1 with disc vacuum phenomenon. -Moderate loss of disc height and signal at T11-T12, as well as L3-4. -Otherwise only mild loss of disc signal without loss of disc height. SPINAL CANAL: -No abnormal developmental findings. -No abnormal intra-axial or extra medullary enhancement identified. CONUS MEDULLARIS: -Terminates at superior endplate of L2. Morphology and signal is normal. INTRADURAL NERVE ROOTS: - Normal without enhancement, clumping, or mass. Axial Disc Space Images: T11-T12: Only seen sagittally. There is a diffuse bulging disc present, mild bilateral hypertrophic facet changes, resulting in mild central canal narrowing and mild bilateral left greater than right neural foraminal narrowing. T12-L1: Only seen sagittally. Minimal disc bulge without significant mass effect. Mild left hypertrophic facet changes. There is mild left neural foraminal narrowing. No central canal narrowing. L1-L2: No significant disc pathology. There are mild to moderate hypertrophic degenerative facet changes. No central canal or neural foraminal narrowing. L2-L3: No significant disc pathology. Moderate hypertrophic degenerative facet changes present. There is mild to moderate posterior ligamentous thickening/infolding. Mild central canal narrowing, mild bilateral subarticular recess narrowing, and mild bilateral neural foraminal narrowing. L3-L4: Diffuse bulging disc with superimposed central and left lateral disc protrusion with annular fissuring. Moderate hypertrophic degenerative facet changes bilaterally with facet joint effusions, spurring, and prominent posterior ligamentous thickening/infolding. Combination of findings results in moderate to severe central canal stenosis, with the thecal sac being reduced to approximately 8 mm AP diameter. There is moderate bilateral subarticular recess stenosis with contact and minimal deviation of both traversing left greater than right L4 nerve roots. There is moderate right and [id number] left neural foraminal narrowing. Mild deviation/mass effect on the exiting bilateral L4 roots. L4-L5: Dorsal laminectomies and disc prostheses/fusion. Central canal is decompressed and capacious. Normal-appearing nerve roots. No residual central canal, subarticular recess, or neural foraminal narrowing. Edema in the right L4 pedicle is likely related to stress response. L5-S1: Shallow diffuse disc bulge, concentrically involving both foraminal zones left greater than right. Severe, end-stage degenerative facet changes right greater than left, with predominantly extracanalicular spurring. Mild posterior ligamentous thickening/infolding. There is mild central canal narrowing, mild to moderate bilateral subarticular recess narrowing, severe right, and moderate left neural foraminal narrowing. There is mass effect and likely impingement of the exiting right L5 root. There is mild mass effect on the exiting left L5 root. There is no mass effect on the upon the S1 traversing roots. 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 -Bone graft harvest site noted left posterior iliac bone. PARAVERTEBRAL AND INCLUDED EXTRASPINAL SOFT TISSUES: -Mild ectasia of the infrarenal aorta up to 2.4 cm. -Mild denervation atrophy of the paraspinous musculature at L4 and below. MR/MR lumbar spine wo/w con IMPRESSION: 1. Fusion L4-5 with titanium disc grafts and laminectomies. No complication seen. 2. Mild to moderate spondylosis, most significant at L3-4, and L5-S1. Moderate central canal stenosis L3-4, with moderate associated neural foraminal narrowing. Severe right and moderate left neural foraminal narrowing at L5-S1. See above for details. 3. Mild enhancement and edema in the left L4 pedicle, likely relating to stress response. 4. Mild edematous endplate changes and enhancement T11-T12. 5. No abnormal intra or extra medullary enhancement, nerve root clumping, or nerve root masses. 6. Ancillary findings as detailed. Electronically signed by: Angelo Bah MD 05/02/2024 09:45 AM [facility] [place]
[2024-03-01] MEDS: gadobutroL 10 ML VIAL IVPUSH (14:10)
== END 2024-03-01 12:49 | disposition home or self-care (01) ==
LOC: HO.MRI 12:48
PROVIDERS: PCP Physician Assistant; Visit Provider Physician Assistant
DX: M54.50 Low back pain, unspecified (principal); M54.16 Radiculopathy, lumbar region
CPT/HCPCS: 72158; A9585

== ENCOUNTER → 2024-03-01 12:48 | Outpatient (BNV) | payer OTHER, SELFPAY | PROVIDERS: PCP Physician Assistant; Visit Provider Radiology Diagnostic Radiology | DX: M54.50 Low back pain, unspecified (principal) | CPT/HCPCS: 72158 ==

== ENCOUNTER 2024-03-08 10:57 | Outpatient (AMB) | payer OTHER, SELFPAY ==
--- NOTE | 2024-03-08 11:03 | A.OFFPC_ITS ---
Vital Signs 03/08/24 11:17 Height 5 ft 4 in Weight 198 lb 4 oz BMI 34.0 BP 130/74 Blood Pressure Location Lt brachial Position Sitting Pulse 84 Pulse Source Pulse Oximeter Pulse Oximetry (%) 91 L Oxygen Delivery Method Room Air Intake Visit Reasons: Annual Exam Intake Note: Patient is here today for a physical. Head Chopper Required: No Accompanied by: Self / Same As Patient Allergies Penicillins [PENICILLINS] Allergy (Intermediate, Verified 03/08/24 13:25) RASH (CHILDHOOD ALLERGY) Medication List - Last Reconciled 03/08/24 by Amari Mckeon PA-C albuterol sulfate 90 mcg/actuation (Ventolin HFA) 1 puff inhalation Q4H PRN albuterol sulfate 2.5 mg (3 mL) inhalation Q6H PRN 30 days buprenorphine-naloxone 8-2 mg (Suboxone) 1 strip sublingual DAILY cane As directed clonazepam 1 mg PO BEDTIME clonidine HCl 0.2 mg PO BEDTIME 90 days fluoxetine 60 mg (3 x 20 mg) PO DAILY gabapentin 800 mg PO BID@1200,2100 hydroxyzine HCl 50 mg PO BEDTIME 30 days lidocaine 5% 1 patch topical DAILY 30 days lisinopril-hydrochlorothiazide 10-12.5 mg 1 tab PO DAILY 90 days methocarbamol 750 mg PO BID PRN 60 days methylphenidate HCl ER (Concerta) 36 mg PO DAILY 28 days multivitamin 1 tab PO DAILY nebulizers As directed omeprazole 40 mg PO DAILY@0630 prednisone 20 mg PO DAILY 12 days primidone 25 mg orally 1/2 tab qama nd q 2 pm; propranolol 10 mg PO BID PRN 30 days trazodone 50 mg PO BEDTIME PRN 90 days umeclidinium-vilanterol 62.5-25 mcg/actuation (Anoro Ellipta) 1 ea PO DAILY vitamin B complex 1 tab PO DAILY Tobacco use date assessed: 05/25/23 Fall risk assessment: No Falls in past year Last assessed Fall Risk: 03/08/24 Dental Screening Dental Screen Date: 05/25/23 HPI Annual Exam HPI Details Patient is a 63-year-old female here today for a routine annual physical. Concern--> A she reports having lot more pain as of late especially in her knees. She had an episode of right arm extreme pain and swelling to which she was seen at the ER . She has been using her gabapentin without any significant relief. Of note she continues on Suboxone for opiate use disorder though feels it is not helping her pain at all. --> of note we did discuss reducing her dose of gabapentin and/or clonazepam as this may be causing worsening memory issues though she is not willing to do so at this time. .. Tremor: Has followed up with Neurology and has started primidone for tremor though does not feel it is helpful. She reports propranolol was much more helpful for her tremor. There has been some concern for bronchospasm due to her COPD using beta-simona and she does understand thus risk. Attention deficit disorder: She continues on Concerta which has drastically improved her quality of life. She reports a significant improvement in her attention and focus. .. Anxiety: Reports her anxiety has been not the best controlled, has been working with a mental health therapist. She continues on clonazepam 1 mg daily. Will supplement with propanolol and higher dose of hydroxyzine. .. Migraines in vision issues: Will send for CTA of head and was found to have a 3.5 cm saccular aneurysm. Has been followed up with neurosurgeon and was not considered a surgical candidate for coiling. Given follow-up appointment in 3 years. Hypertension: Blood pressure much improved since addition of lisinopril. Will continue current dose lisinopril hydrochlorothiazide. . smoker: Unfortunately started smoking again due to for stress and anxiety and continued pain. .. COPD: Continues to follow [facility]. Did have a recent COPD exacerbation was treated with antibiotic and prednisone. She did on full a CT lung screening in 02/11/2024 which was BI-RADS 2, benign appearing nodules. She does have pulmonary nodules have been followed by pulmonology. Colon cancer screening: Colonoscopy done in 2019 polyp found tubular adenoma repeat 5 years Mammogram: Mammogram done in February of 2023, BI-RADS 2 needs repeat Vaccines: Up-to-date with COVID vaccine, pneumonia vaccine, tetanus vaccine, UTD Shingles vaccine. [facility] Medical History (Updated 03/08/24 @ 13:58 by Amari Mckeon PA-C) Alcohol use disorder, severe, dependence Hypersomnia Snoring Saccular aneurysm Pulmonary embolism SARS-CoV-2 positive Opioid abuse Ganglion cyst Obese Tubular adenoma of colon Otitis externa RUQ abdominal pain GERD (gastroesophageal reflux disease) Acute anxiety Depression Insomnia Surgical History History of esophagogastroduodenoscopy (EGD) Hx of colonoscopy Previous back surgery Family History Father Alzheimer disease Mother Stroke Brother Esophageal cancer Other Mental problem Substance abuse Social History Household Members: Significant Other Household Members Other:: fiancee Housing: Apartment Are you a primary acute care physician to a significant other at home: No Do you presently have visiting nurse or other home services: No Alcohol intake: current Alcohol intake frequency: does not drink Alcohol type: hard liquor Patient Tobacco Use Status: Current someday Tobacco user Tobacco use type: Cigarette Cigarettes Per Day: 10 Years Smoked: 40 e-Cigarette/Vaping Use: Former Use Second Hand Smoke Exposure: Yes Substance Use Type: Marijuana Advance Directives Date on File: 03/17/22 service: No Current occupational status: employed 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 1. Little interest or pleasure in doing things: more than half the days 2. Feeling down, depressed, or hopeless: more than half the days 3. Trouble falling or staying asleep, or sleeping too much: nearly every day 4. Feeling tired or having little energy: nearly every day 5. Poor appetite or overeating: nearly every day 6. Feeling bad about yourself - or that you are a failure or have let yourself or your family down: several days 7. Trouble concentrating on things, such as reading the newspaper or watching television: not at all 8. Moving or speaking so slowly that other people could have noticed. Or the opposite - being so fidgety or restless that you have been moving around a lot more than usual: several days 9. Thoughts that you would be better off or of hurting yourself in some way: not at all Total score: 15 Depression Screening Interpretation: Positive Depression Screening Follow-up: Existing condition and In treatment Depression Screening Done: Yes 71085 - PHQ-9 Billing: Yes Source: Developed by Drs. Dannie Sandoval, Kathryn Bryant, Felipe Paulson and colleagues, with an educational rupal from [employer]. Thrive Questionnaire Date Thrive assessed: 03/08/24 I am a: Patient What is your living situation today?: I have a steady place to live Within the past 12 months, did the food you bought not last and you didn't have the money to get more?: Often true Within the past 12 months, did you worry whether your food would run out before you got money to buy more?: Often true Do you have trouble paying for medicines?: No Do you have trouble getting transportation to medical appointments?: I choose not to answer this question Do you have trouble paying your heating and electricity bill?: I choose not to answer this question Do you have trouble taking care of your child, family member or friend?: No Do you have trouble with day-to-day activities such as bathing, preparing meals, shopping, managing finances, etc.?: Yes Are you interested in more education?: No Please select the resources that you would like help with: Food and Transportation Currently or been in a relationship where the following occur: No concerns reported THRIVE Score: 2 AUDIT C Alcohol Use Questionnaire (AUDIT-C) 1. How often do you have a drink containing alcohol?: Never 3. How often do you have six or more drinks on one occasion?: Never Total Score: 0 FOREIGN-7 AMB Questionnaire FOREIGN-7 Date FOREIGN - 7 assessed: 03/08/24 Feeling nervous, anxious, or on edge: 3 = Nearly every day Not being able to stop or control worryin = More than half the days Worrying too much about different things: 2 = More than half the days Trouble relaxin = More than half the days Being so restless that it is hard to sit still: 1 = Several days Becoming easily annoyed or irritable: 1 = Several days Feeling afraid as if something awful might happen: 3 = Nearly every day Total FOREIGN-7 score (0-4 normal; 5-9 mild; 10-14 moderate; 15-21 severe): 14 Source: Developed by Drs. Dannie Sandoval, Felipe Ferrooenke and colleagues, with an educational rupal from [employer]. FOREIGN-7 Assessment Billing FOREIGN-7 Assessment Tool: FOREIGN-7 Assessment 28945 Review of Systems Const Reports body aches, Denies chills, Denies excessive sweating, Denies fatigue, Denies fever(s) and Denies headache(s) Eyes Denies blurry vision ENT Denies dysphagia, Denies vertigo, Denies dizziness, Denies headache(s), Denies hearing loss and Denies tinnitus Card Denies chest pain, Denies chest pain with activity, Denies syncope, Denies irregular heart rhythm and Denies dyspnea Resp Denies chest congestion, Denies cough, Denies hemoptysis, Denies dyspnea and Denies wheezing GI Denies abdominal pain, Denies melena, Denies hematochezia, Denies coffee ground emesis, Denies dysphagia, Denies diarrhea, Denies nausea and Denies vomiting Denies urinary frequency, Denies dysuria, Denies urinary hesitancy and Denies urinary urgency Musc Reports abnormal gait, Reports back pain, Reports arthralgias, Denies limited range of motion, Reports muscle cramps and Denies muscle weakness Skin/Breast Denies rash and Denies skin ulcer Neuro Details: + tremor Denies Abnormal speech present, Reports abnormal gait, Denies confusion, Denies vertigo, Denies dizziness, Denies syncope, Denies headache(s), Denies memory loss, Reports convulsions and Denies seizure-like activity Psych Denies anxiety, Denies confusion, Denies depression, Denies memory loss, Denies panic attacks and Denies paranoia Endo Denies excessive sweating, Denies fatigue, Denies flushing, Denies polydipsia and Denies polyuria Aller/Immun Denies wheezing Physical exam (Primary Care) Vital Signs: Last Vital Signs Pulse 84 03/08/24 11:17 BP 130/74 03/08/24 11:17 Pulse Ox 91 L 03/08/24 11:17 Oxygen Delivery Method Room Air 03/08/24 11:17 BMI result Body Mass Index 34.0 BMI Assessment/Plan discussion: High BMI High, discussed plan: lifestyle and dietary Tobacco/Smoking Status: Tobacco use Status Tobacco use date assessed 05/25/23 03/08/24 11:04 Patient Tobacco Use Status Current someday Tobacco 03/08/24 11:04 Tobacco use type Cigarette 03/08/24 11:04 e-Cigarette/Vaping Use Former Use 03/08/24 11:04 Are you ready to quit: Yes Tobacco cessation counseling provided: Yes Items discussed: Nicotine replacement Relapse Prevention: discussed the importance of a supportive environment, discussed negative mood or depression after quitting, weight gain after smoking is common and discussed dietary, exercise and/or lifestyle changes Number of minutes spent counselin CPT code: 77612 - 4-10 Minutes PHQ-9: PHQ-9 Score PHQ-9: Total score 15 03/08/24 11:22 Depression Screening Interpretation: Positive Depression Screening Follow-up: Existing condition and In treatment Thrive Assessment: Date of Thrive Assessment Date Thrive assessed 03/08/24 03/08/24 11:19 Currently or been in a relationship where the following occur: No concerns reported Const General: cooperative, comfortable, no acute distress, alert and awake; No confusion Orientation/consciousness: oriented to person, oriented to place, patient oriented x3 and No confusion HENMT Head: Yes normocephalic Ears: external ears normal and TM's normal bilaterally Face and sinus: No sinus tenderness Mouth: Normal oral and palatal mucosa present and tongue normal Teeth and gingiva: dentition normal and gingiva normal Throat: Yes posterior oropharynx normal, Yes tonsils normal and Yes uvula midline Eyes Conjunctivae: conjunctivae normal Sclerae: sclerae normal Pupils: Equal, round and reactive pupils present EOM: EOMs intact bilaterally Direct Ophthalmoscopy: No no photophobia Neck Neck: Yes no lymphadenopathy, No tender and Yes no JVD Thyroid: Thyroid normal Carotids: no bruits Chest Chest palpation & inspection: no tenderness Resp Effort & Inspection: normal respiratory effort, no audible wheezes, not labored and no stridor Auscultation: no crackles, no rales, no rhonchi and no wheezes Cardio Jugular venous distension: no JVD Rate: regular rate, not bradycardic and not tachycardic Rhythm: regular rhythm Bruits: no carotid bruits Peripheral pulses: Peripheral pulses 2+ throughout GI Inspection: Yes normal to inspection, No abdominal wall ecchymosis and No visible herniation Palpation (GI): Soft to palpation, nontender, no guarding, not rigid and No hepatosplenomegaly present Auscultation: normoactive bowel sounds General: Yes no CVA tenderness Back/Spine/Pelvis Back: no CVA tenderness and No back tenderness Cervical Spine: cervical ROM normal Thoracic/Lumbar Spine: thoracic and lumbar spine normal to inspection, straight leg raise negative bilaterally, No thoraco-lumbar ROM limited and No lumbar spinal tenderness Skin Lesions: no lesions Rashes: no rashes Wounds: no wounds Neuro General: oriented to person, oriented to place, patient oriented x3, CN's II-XI intact bilaterally and No confusion Cranial nerves: Yes Equal, round and reactive pupils present and Yes Normal accommodation reflex present Cognition (Neuro): normal cognition Speech: No Abnormal speech present Gait exam (Neuro): Normal gait present Motor exam (neuro): 5/5 motor strength present throughout Extrem Right upper extremity: full ROM; no cyanosis Left upper extremity: full ROM; no cyanosis Right lower extremity: no edema Left lower extremity: no edema Psych Appearance: grossly normal Mental Status: mental status grossly normal Affect: normal affect Attitude: cooperative Thought process: Normal thought process present Office Procedures Flu Questionnaire Does the patient have a severe egg allergy?: No Does the patient have severe life threatening allergies?: No Does the patient have a fever or illness today?: No Has the patient ever had Guillain-[place] Syndrome?: No Has the patient ever had any past reaction to a flu shot?: No Immunizations Fluarix Triv [id number] (PF) 45 mcg (15 mcg x 3)/0.5 mL IM syringe Performing Provider: Amari Mckeon PA-C [facility] Administered by: NAJMA Sanchez on 03/08/24 11:19 Dose Route Admin Location Dispensed Lot Number Expiration Date [facility] Hide Buffer 0.5 mL IM Left Deltoid 0.5 mL [id number] 11/20/24 [id number] [employer] VIS Given Date VIS Provided VIS Publication Date 03/08/24 Single Vaccine 20 Eligibility Eligibility Date Funding Source Not [facility] Eligible 03/08/24 Private Coding Level of Care Code Est Pt Prev Care 40-64y(15221) Diagnoses Annual physical exam Z00.00 Polyarthralgia M25.50 Attention deficit disorder (ADD) without hyperactivity F98.8 Hyperactivity presence: absent Primary hypertension I10 Hypertension type: primary hypertension Smoker F17.200 Fibromyalgia M79.7 Encounter for screening mammogram for malignant neoplasm of breast Z12.31 Breast cancer screening modality: mammogram Polysubstance abuse F19.10 Additional Codes FOREIGN-7 Assessment Billing - FOREIGN-7 Assessment Tool: FOREIGN-7 Assessment 12436 ([id number]) Vital Signs *Quality* - CPT code: 77135 - 4-10 Minutes ([id number]) Assessment & Plan Assessment & Plan (1) Annual physical exam: Code(s): Z00.00 - Encounter for general adult medical examination without abnormal findings Category: Medical Plan: As per HPI (2) Polyarthralgia: Code(s): M25.50 - Pain in unspecified joint Category: Medical Plan: Patient reports widespread pain. She has particular pain in her knees, left hip and lower back. She is being evaluated for her lower back pain by a neurosurgeon and has gotten an MRI of her lumbar spine and awaiting results. Widespread pain is concerning for fibromyalgia diagnosis. Has been using gabapentin though has not been effective. Will transition to Lyrica 50 mg b.i.d. to see if this will help her pain (3) ADD (attention deficit disorder): Code(s): F98.8 - Other specified behavioral and emotional disorders with onset usually occurring in childhood and adolescence Category: Medical Qualifiers: Hyperactivity presence: absent Qualified Code(s): F98.8 - Other specified behavioral and emotional disorders with onset usually occurring in childhood and adolescence Plan: Patient continues Concerta with good effect on her attention and focus. (4) HTN (hypertension): Code(s): I10 - Essential (primary) hypertension Category: Medical Qualifiers: Hypertension type: primary hypertension Qualified Code(s): I10 - Essential (primary) hypertension Plan: Patient's blood pressure acceptable today in office. She continues on lisinopril hydrochlorothiazide with good effect. Goal blood pressure is to remain below 140/90 (5) Smoker: Code(s): F17.200 - Nicotine dependence, unspecified, uncomplicated Category: Social Hx Plan: Unfortunately patient has started smoking again and knows she needs to quit smoking as she has COPD. She does have nicotine replacement available to her. Has upcoming appointment with pulmonology. (6) Fibromyalgia: Code(s): M79.7 - Fibromyalgia Category: Medical Plan: As above patient pain that is widespread seems to be most consistent with a fibromyalgia diagnosis. Advised on continuing her mental therapy, consider nonweightbearing exercises. Will try Lyrica for her widespread pain. (7) Breast cancer screening: Code(s): Z12.39 - Encounter for other screening for malignant neoplasm of breast Category: Medical Qualifiers: Breast cancer screening modality: mammogram Qualified Code(s): Z12.31 - Encounter for screening mammogram for malignant neoplasm of breast Plan: Patient a need for mammogram (8) Polysubstance abuse: Code(s): F19.10 - Other psychoactive substance abuse, uncomplicated Category: Medical Plan: Has resolved, now on Suboxone through a Suboxone clinic locally. Orders: Orders DNA Double Stranded-Crithidia Today M25.50 - Pain in unspecified joint Cyclic Citrullinated Peptide Today M25.50 - Pain in unspecified joint MM screening mammo BI Today Z12.31 - Encounter for screening mammogram for malignant neoplasm of breast Influenza [id number] Immunization Today Z23 - Encounter for immunization LUIGI Reflex Titer and Pattern Today M25.50 - Pain in unspecified joint Rheumatoid Factor Today M25.50 - Pain in unspecified joint Lyme IgG/IgM w/reflex to WB Today M25.50 - Pain in unspecified joint Medications: New trazodone 100 mg PO BEDTIME 90 tabs 1RF 90 days G47.00 - Insomnia, unspecified pregabalin (Lyrica) 50 mg PO BID 60 caps 1RF 30 days M79.7 - Fibromyalgia Discontinued trazodone Discontinued Reason: Doctor's Order 50 mg PO BEDTIME 90 days PRN 90 tabs 0RF for insomnia
[2024-03-08 11:17] VITALS: BP 130/74; PULSE 84; O2SAT 91; BMI 34.0
== END 2024-03-08 11:58 | disposition home or self-care (01) ==
PROVIDERS: PCP Internal Medicine; Visit Provider Physician Assistant
DX: Z00.00 Encounter for general adult medical examination without abnormal findings (principal); M25.50 Pain in unspecified joint; F19.10 Other psychoactive substance abuse, uncomplicated; F98.8 Other specified behavioral and emotional disorders with onset usually occurring in childhood and adolescence; I10 Essential (primary) hypertension; F17.210 Nicotine dependence, cigarettes, uncomplicated; M79.7 Fibromyalgia; Z12.31 Encounter for screening mammogram for malignant neoplasm of breast

== ENCOUNTER 2024-03-08 10:57 | Outpatient (REF) | payer OTHER, SELFPAY ==
[2024-03-08 14:30] LABS: Rheumatoid Factor < 13.0 IU/mL (<15.0)
[2024-03-09 22:18] LABS: Lyme Abs Screen <0.90 index
[2024-03-10 13:53] LABS: Anti Nuclear Antibody Screen NEGATIVE (NEGATIVE)
[2024-03-10 16:58] LABS: Cyclic Citrullinated Peptide <16 UNITS
[2024-03-14 15:19] LABS: DNAds, Crithidia Antibody Negative (Negative)
== END 2024-03-08 10:58 | disposition home or self-care (01) ==
LOC: HO.LAB 10:57
PROVIDERS: PCP Internal Medicine; Visit Provider Physician Assistant
DX: Z23 Encounter for immunization (principal); Z00.00 Encounter for general adult medical examination without abnormal findings; J43.9 Emphysema, unspecified; Z87.891 Personal history of nicotine dependence; M25.50 Pain in unspecified joint; F98.8 Other specified behavioral and emotional disorders with onset usually occurring in childhood and adolescence; I10 Essential (primary) hypertension; M79.7 Fibromyalgia; F19.10 Other psychoactive substance abuse, uncomplicated
CPT/HCPCS: 36415; 86038; 86200; 86255; 86431; 86617; 86618; 90471; 90656; 96127; 99212; 99396

== ENCOUNTER 2024-03-08 13:05 | Outpatient (AMB) | payer OTHER, SELFPAY ==
--- NOTE | 2024-03-08 13:20 | A.OFFVIS_ITS ---
Vital Signs 03/08/24 13:21 Height 5 ft 4 in Weight 198 lb 6.656 oz BMI 34.1 BP 110/70 Blood Pressure Location Lt brachial Position Sitting Pulse 86 Pulse Source Pulse Oximeter Pulse Oximetry (%) 94 Oxygen Delivery Method Room Air Intake Visit Reasons: Pulm Nodules Intake Note: Patient states feeling much better. 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 Patient continues on Anoro and albuterol MDI with suboptimal control of her underlying symptoms.? She recently had several exacerbations requiring treatment with prednisone pulses and empiric antibiotics. Now she is back to baseline. [facility] Medical History Hypersomnia Snoring Saccular aneurysm Pulmonary embolism SARS-CoV-2 positive Opioid abuse Ganglion cyst Obese Tubular adenoma of colon Otitis externa RUQ abdominal pain GERD (gastroesophageal reflux disease) Acute anxiety Depression Insomnia Surgical History History of esophagogastroduodenoscopy (EGD) Hx of colonoscopy Previous back surgery Family History Father Alzheimer disease Mother Stroke Brother Esophageal cancer Other Mental problem Substance abuse Social History Household Members: Significant Other Household Members Other:: fiancee Housing: Apartment Are you a primary resident care associate to a significant other at home: No Do you presently have visiting nurse or other home services: No Alcohol intake: current Alcohol intake frequency: does not drink Alcohol type: hard liquor Patient Tobacco Use Status: Current someday Tobacco user Tobacco use type: Cigarette Cigarettes Per Day: 10 Years Smoked: 40 e-Cigarette/Vaping Use: Former Use Second Hand Smoke Exposure: Yes Substance Use Type: Marijuana Advance Directives Date on File: 03/17/22 service: No Current occupational status: employed 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[employer], 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 Sexual orientation: Straight/Heterosexual Cognitive needs: Yes (cane) Hearing needs: No Vision needs: Yes (Glasses) Review of Systems Const Denies daytime sleepiness, Denies excessive sweating, Denies fatigue, Denies fever(s), Denies lethargy, Denies malaise, Denies night sweats, Denies snoring and Denies weight loss Eyes Denies blurry vision and Denies itchy eyes ENT Denies nasal congestion, Denies post nasal drip, Denies sinus pain, Denies sinus pressure and Denies other ( Thrush) Card Denies chest pain, Denies pedal edema, Denies dyspnea, Denies orthopnea and Denies paroxysmal nocturnal dyspnea Resp Denies cough, Denies hemoptysis, Denies excessive phlegm production, Denies dyspnea, Denies snoring and Denies wheezing GI Denies abdominal pain and Denies heartburn Musc Denies myalgias, Denies arthralgias and Denies joint swelling Skin/Breast Denies rash Neuro Denies memory loss and Denies seizure-like activity Psych Denies abnormal sleep pattern, Denies anxiety and Denies memory loss Endo Denies excessive sweating, Denies fatigue and Denies heat intolerance Rizwan/Lymph Denies easy bruising Aller/Immun Denies itchy eyes, Denies seasonal rhinorrhea and Denies wheezing Physical Exam Vital Signs: Last Vital Signs Pulse 86 03/08/24 13:21 BP 110/70 03/08/24 13:21 Pulse Ox 94 03/08/24 13:21 Oxygen Delivery Method Room Air 03/08/24 13:21 BMI result Body Mass Index 34.1 Const General: no acute distress and alert Nutritional Appearance: not obese Orientation/consciousness: Other orientation findings ( oriented) HEENT Head: Yes atraumatic Eyes General: appearance normal, both eyes and all related structures Sclerae: sclerae normal EOM: EOMs intact bilaterally Neck Neck: Yes supple Lymphatic: no lymphadenopathy noted Resp Effort & Inspection: normal respiratory effort and no use of accessory muscles Auscultation: clear to auscultation bilaterally Cardio Rate: regular rate Rhythm: regular rhythm Heart sounds: no gallops, no murmurs and no rubs Skin General skin exam: other ( warm) Extrem General: No clubbing, No cyanosis and No edema Quality Reporting (2019) Adult ([facility] 138/2/) Smoking risk assessment performed?: Yes Patient Tobacco Use Status: Current someday Tobacco user Assessment & Plan Assessment & Plan (1) Pulmonary emphysema: Code(s): J43.9 - Emphysema, unspecified Category: Medical Plan: Suboptimal control on Anoro, appears to benefit from glucocorticoids, will switch to BrezTri. Continue albuterol MDI/nebs. (2) Personal history of nicotine dependence: Code(s): Z87.891 - Personal history of nicotine dependence Category: Medical Plan: Results of lung cancer screening CT chest from January of 2024 reviewed, no worrisome nodules. Continue with yearly screening, next in January of 2025. Orders: Orders CT lung screening 02/06/25 Z87.891 - Personal history of nicotine dependence Medications: New rjdklqscfj-smyoptrj-sbqphdjsiz 160-9-4.8 mcg/actuation (Breztri Aerosphere) 2 inhalations inhalation BID 1 ea 6RF Discontinued umeclidinium-vilanterol 62.5-25 mcg/actuation (Anoro Ellipta) Discontinued Reason: Doctor's Order 1 ea PO DAILY 60 ea 6RF J98.4 - Other disorders of lung Coding Level of Care Code Est Pt Level 4 (44471) Diagnoses Pulmonary emphysema J43.9 Personal history of nicotine dependence Z87.891
[2024-03-08 13:21] VITALS: BP 110/70; PULSE 86; O2SAT 94; BMI 34.1
== END 2024-03-08 13:35 | disposition home or self-care (01) ==
PROVIDERS: PCP Physician Assistant; Visit Provider Internal Medicine Pulmonary Disease
DX: J43.9 Emphysema, unspecified (principal); Z87.891 Personal history of nicotine dependence
CPT/HCPCS: 99214

== ENCOUNTER 2024-03-11 14:47 | Emergency (ER) | payer OTHER, SELFPAY ==
--- NOTE | ~2024-03-11 | US_ITS ---
EXAMINATION: US TRIPLEX LOWER EXTREMITY, RIGHT CLINICAL INFORMATION: Pain, swelling COMPARISON: None available. TECHNIQUE: Color-flow triplex imaging with spectral analysis and compression Doppler were performed on the right lower extremity. FINDINGS: Respiratory variation, normal compression and augmented flow are noted throughout the right lower extremity. The visualized common femoral vein, superficial femoral vein, profunda femoral vein, popliteal vein and midcalf peroneal and posterior tibial venous segments show no evidence of deep venous thrombosis. There is a 4.3 x 1.0 x 1.1 cm popliteal fossa fluid collection. US/US venous duplex LE RT IMPRESSION: No evidence of deep venous thrombosis involving the right lower extremity. 4.3 cm Terrell's cyst. Electronically signed by: Maria De Jesus Chatterjee MD 03/11/2024 08:32 PM EDT
--- NOTE | ~2024-03-11 | CT_ITS ---
EXAMINATION: CT ABDOMEN AND PELVIS WITHOUT CONTRAST CLINICAL INFORMATION: 63-year-old female with flank pain COMPARISON: Lumbar spine MRI from March 01, [address] abdomen from April 30, 2022 TECHNIQUE: Multidetector volumetric imaging was performed from the superior aspect of the liver through the pubic symphysis. Sagittal and coronal reformatted images were obtained on the technologist's workstation. This CT examination was performed using dose optimization techniques as appropriate, variously including the following: *Automated exposure control *Adjustment of mA and/or kV according to patient size (this includes techniques or standardized protocols for targeted exams where dose is matched to indication/reason for exam; i.e. extremities or head) *Use of iterative reconstruction technique DLP: 694 mGy-cm FINDINGS: LUNG BASES: The visualized lung bases are unremarkable. LIVER, GALLBLADDER, AND BILIARY TREE: The liver is normal in size, shape, and attenuation. No focal hepatic lesion or biliary ductal dilatation is present. The gallbladder is unremarkable with no evidence of radiopaque gallstones, gallbladder wall thickening, or obvious pericholecystic inflammatory changes. CBD is not dilated. There is single punctate calcification in CBD seen. PANCREAS: Few punctate calcifications in the pancreas stable since previous study most likely due to sequela of chronic pancreatitis. SPLEEN: Unremarkable. ADRENAL GLANDS: Unremarkable. KIDNEYS AND URETERS: The kidneys are normal in size, shape, and attenuation. No hydronephrosis, hydroureter, or calculi seen. No perinephric stranding. BLADDER: Unremarkable. GASTROINTESTINAL TRACT: Stomach is decompressed.. Loops of small bowel are unremarkable. There is no colitis or diverticulitis seen. Few scattered diverticula seen in the sigmoid colon. Mesentery is normal. ABDOMINAL WALL: No significant hernia is appreciated. LYMPH NODES: Normal. VASCULAR: Calcification seen in not dilated abdominal aorta PELVIC VISCERA: Unremarkable. OSSEOUS STRUCTURES: There are postsurgical changes at the level of L4-L5 and degenerative changes at the level of L5-S1 CT/CT abdomen pelvis wo IV con IMPRESSION: No acute abnormalities identified. No explanation for flank pain. Postsurgical changes at the level of L4-5. Fleischner guidelines were followed. Electronically signed by: Beverly Avilez MD 03/11/2024 06:35 PM EDT
[2024-03-11 14:51] VITALS: BP 93/50; PULSE 70; O2SAT 94
[2024-03-11 14:56] VITALS: BP 94/54; PULSE 82; RESP 18; TEMP 36.9; O2SAT 96; BMI 34.1
--- NOTE | 2024-03-11 15:00 | ECG_ITS ---
Test Reason : PAIN Blood Pressure : / mmHG Vent. Rate : 074 BPM Atrial Rate : 074 BPM P-R Int : 130 ms QRS Dur : 080 ms QT Int : 382 ms P-R-T Axes : 013 036 044 degrees QTc Int : 424 ms Normal sinus rhythm Normal ECG When compared with ECG of 26-JAN-2024 13:36, No significant change was found Referred By: Generic ED Physician Electronically Signed By:INGRID ALEGRIA
[2024-03-11 15:32] LABS: MANUAL DIFF FLAG NO
[2024-03-11 15:33] LABS: Basophils Percent Auto 0.4 % (0-2); Eosinophils Absolute Auto 0.2 X10*3/uL (0.0-0.4); Eosinophils Percent Auto 2.4 % (0-4); Hematocrit 31.6 % (37.0-47.0); Hemoglobin 10.6 g/dl (12.0-16.0); Imm Gran Abs Auto 0.05 X10*3/uL (0.00-0.03); Imm Gran Pct Auto 0.5 % (0.0-0.4); Lymphocytes Absolute Auto 2.5 X10*3/uL (1.2-4.9); Lymphocytes Percent Auto 26.1 % (20-40); Mean Corpuscular HGB Conc 33.5 g/dl (31.0-35.0); Mean Corpuscular Hemoglobin 29.5 pg (27.0-33.0); Mean Platelet Volume 9.9 fL (9.4-12.3); Monocytes Absolute Auto 0.7 X10*3/uL (0.1-1.2); Monocytes Percent Auto 7.7 % (2-11); Neutrophils Percent Auto 62.9 % (45-73); Platelet Count 191 X10*3/uL (160-400); Red Blood Count 3.59 X10*6/uL (4.20-5.50); Red Cell Distribution Width 16.3 % (11.0-16.0); White Blood Count 9.6 X10*3/uL (4.8-10.8)
[2024-03-11 15:53] LABS: Alanine Aminotransferase 13 U/L (0-31); Albumin Level 3.4 g/dL (3.5-5.0); Alkaline Phosphatase 84 U/L (39-117); Anion Gap 11 (12-20); Aspartate Amino Transferase 14 U/L (5-31); Bilirubin Total 0.4 mg/dL (0.0-1.0); Blood Urea Nitrogen 15 mg/dL (9-16); Calcium 8.5 mg/dL (8.4-10.2); Carbon Dioxide 26 mmol/L (22-29); Chloride 102 mmol/L (96-108); Creatinine Clr Calc Pharmacy 79.2; Estimated Glomerular Filt Rate > 60; Glucose Random 99 mg/dL (60-115); Sodium 135 mmol/L (135-145); Total Protein 6.1 g/dL (6.5-8.0)
[2024-03-11 16:03] LABS: Troponin-I High Sensitivity < 2.7 ng/L (<3.5-17.0)
[2024-03-11 16:13] LABS: Appearance Urine Clear; Color Urine Yellow; Glucose Urine UA Negative (Negative); Leukocyte Esterase Urine Negative (Negative); Nitrite Urine Negative (Negative); PH 5.5 (5.0-9.0); Specific Gravity - Urine 1.015 (1.005-1.025); Urine Blood Negative (Negative); Urine Ketones Negative (Negative); Urine Protein Negative (Neg-Trace)
--- NOTE | 2024-03-11 16:24 | PC.NURSE ---
Pt. walked to w/ assistance of walker, limping stating her R side continues to hurt her. patient felt like she cannot urinate, urine sample obtained and sent to lab. Patient otherwise resting quietly on stretcher at this time.
[2024-03-11 17:22] LABS: Influenza A PCR NEGATIVE (Negative); Influenza B PCR NEGATIVE (Negative); Resp Syncy Virus RNA Qual PCR NEGATIVE (Negative); SARS COV2 PCR INHOUSE NEGATIVE (Negative)
--- NOTE | 2024-03-11 18:02 | ED_ITS ---
HPI - General Adult General Chief complaint: General Medical Stated complaint: CP,H/O FIBROMYALGIA PER EMS Time Seen by Provider: 03/11/24 16:50 Source: patient, RN notes reviewed and old records reviewed Mode of arrival: EMS Limitations: no limitations History of Present Illness ED Provider: Jes HPI narrative: 63-year-old female with past medical history significant for recently diagnosed fibromyalgia, history of PE not anticoagulated, history of alcohol use disorder, she is on Suboxone, history of arthritis, COPD, active tobacco user, PTSD, depression, GERD presents for evaluation of multiple complaints. She reports diffuse body aches She states it has been going on for ?a long time. ? She reports that she was started on Lyrica 3 days ago for a new diagnosis of fibromyalgia. She states that she has intermittent swelling of her right leg and right arm. Currently they do not feel swollen She states that this is been going on for months. She also reports difficulty urinating. Denies any burning with urination or frequency She also complains of flank pain and back pain Denies any fevers, chills Related Data Home Medications ?Medication ?Instructions ?Recorded ?Confirmed multivitamin 1 tab PO DAILY 02/10/22 03/08/24 buprenorphine 8 mg-naloxone 2 mg 1 strip sublingual DAILY 03/13/22 03/08/24 sublingual film (Suboxone) vitamin B complex 1 tab PO DAILY 03/23/22 03/08/24 albuterol sulfate 90 mcg/actuation 1 puff inhalation Q4H PRN muscle 01/26/24 03/08/24 aerosol inhaler (Ventolin HFA) spasm clonazepam 1 mg tablet 1 mg PO BEDTIME 01/26/24 03/08/24 omeprazole 40 mg capsule,delayed 40 mg PO DAILY@0630 01/26/24 03/08/24 release Previous Rx's ?Medication ?Instructions ?Recorded nebulizers #1 ea 03/16/22 cane #1 ea 03/18/22 albuterol sulfate 2.5 mg/3 mL 2.5 mg (3 mL) inhalation Q6H PRN 06/27/22 (0.083 %) solution for nebulization shortness of breath or wheezing 30 days #360 mL lisinopril 10 1 tab PO DAILY 90 days #90 tabs 10/21/23 mg-hydrochlorothiazide 12.5 mg tablet methocarbamol 750 mg tablet 750 mg PO BID PRN muscle spasm 60 11/21/23 days #60 tabs fluoxetine 20 mg capsule 60 mg (3 x 20 mg) PO DAILY #90 caps 12/06/23 propranolol 10 mg tablet 10 mg PO BID PRN anxiety 30 days 12/20/23 #60 tabs hydroxyzine HCl 50 mg tablet 50 mg PO BEDTIME 30 days #30 tabs 01/08/24 clonidine HCl 0.2 mg tablet 0.2 mg PO BEDTIME 90 days #90 tabs 02/15/24 methylphenidate HCl 36 mg 36 mg PO DAILY 28 days #28 tabs 02/16/24 tablet,extended release 24 hr (Concerta) primidone 50 mg tablet 25 mg (1/2 x 50 mg) PO .COMPLEX 02/22/24 #30 tabs lidocaine 5 % topical patch 1 patch topical DAILY 30 days #30 03/02/24 ea budesonide 160 mcg-glycopyr 9 2 inh inhalation BID #1 ea 03/08/24 mcg-formot 4.8 mcg/actuation HFA inhaler (Breztri Aerosphere) pregabalin 50 mg capsule (Lyrica) 50 mg PO BID 30 days #60 caps 03/08/24 trazodone 100 mg tablet 100 mg PO BEDTIME 90 days #90 tabs 03/08/24 Allergies Allergy/AdvReac Type Severity Reaction Status Date / Time Penicillins [PENICILLINS] Allergy Intermediate RASH Verified 03/11/24 15:00 (CHILDHOOD ALLERGY) Review of Systems 2 Constitutional: Constitutional: Denies body ache(s), Denies chills, Denies fever(s), Reports headache(s) and Reports malaise Eyes: Eyes: Denies blurry vision ENT: Denies vertigo, Denies dizziness and Reports headache(s) Cardiovascular: Cardiovascular: Reports chest pain, Reports leg edema and Denies dyspnea Respiratory: Respiratory: Denies cough and Denies dyspnea Gastrointestinal: Gastrointestinal: Denies abdominal pain, Denies nausea and Denies vomiting Genitourinary: Genitourinary: Reports difficulty voiding and Denies dysuria Musculoskeletal: Musculoskeletal: Reports back pain and Reports myalgias Integumentary/Breasts: Skin/Breast: Denies rash Neurologic: Denies vertigo, Denies dizziness and Reports headache(s) [facility] Past Medical History Medical History (Updated 03/11/24 @ 18:16 by Carlos A Andre) Alcohol use disorder, severe, dependence Hypersomnia Snoring Saccular aneurysm Pulmonary embolism SARS-CoV-2 positive Opioid abuse Ganglion cyst Obese Tubular adenoma of colon Otitis externa RUQ abdominal pain GERD (gastroesophageal reflux disease) Acute anxiety Depression Insomnia Surgical History History of esophagogastroduodenoscopy (EGD) Hx of colonoscopy Previous back surgery Family History Family History Father Alzheimer disease Mother Stroke Brother Esophageal cancer Other Mental problem Substance abuse Social History Social History Household Members: Significant Other Household Members Other:: fiancee Housing: Apartment Are you a primary care analyst to a significant other at home: No Do you presently have visiting nurse or other home services: No Alcohol intake: current Alcohol intake frequency: does not drink Alcohol type: hard liquor Patient Tobacco Use Status: Current someday Tobacco user Tobacco use type: Cigarette Cigarettes Per Day: 10 Years Smoked: 40 Smoked in Last 30 Days: Yes e-Cigarette/Vaping Use: Former Use Second Hand Smoke Exposure: Yes Use of substances other than those prescribed or required for medical reasons: No Substance Use Type: Marijuana Advance Directives: No Advance Directives Information Provided: No Advance Directives Date on File: 03/17/22 Do you have a plan to hurt others: No Plan service: No Current occupational status: employed 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[employer], 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 Sexual orientation: Straight/Heterosexual Cognitive needs: Yes (cane) Hearing needs: No Vision needs: Yes (Glasses) Physical Exam ED Vital Signs: Vital Signs - 24 hr 03/11/24 14:56 03/11/24 18:48 03/11/24 20:53 Temperature 98.5 F 97.8 F 97.4 F Pulse Rate 82 68 60 Respiratory Rate 18 18 16 Blood Pressure 94/54 L 96/46 L 98/50 L Pulse Oximetry 96 97 92 Oxygen Delivery Method Room Air Room Air Room Air BMI result Body Mass Index 34.1 Const General: healthy appearing, comfortable, no acute distress, alert and awake Nutritional Appearance: well nourished Orientation/consciousness: patient oriented x3 [facility] Head: Yes normocephalic and Yes atraumatic Eyes Eyelids: Yes eyelids normal Conjunctivae: conjunctivae normal Sclerae: sclerae normal Corneas: corneas normal Pupils: Equal, round and reactive pupils present EOM: EOMs intact bilaterally Neck Neck: Yes full ROM Resp Effort & Inspection: normal respiratory effort, able to speak in complete sentences and not labored Auscultation: wheezes throughout Cardio Other: No obvious lower extremity edema on exam, no calf tenderness. Rate: regular rate Rhythm: regular rhythm GI Inspection: No distended Palpation (GI): Soft to palpation, not firm, nontender, no guarding and not rigid Skin General skin exam: elasticity normal Neuro General: patient oriented x3 Cranial nerves: Yes Equal, round and reactive pupils present and Yes Bilaterally intact EOM present Cognition (Neuro): normal cognition Extrem Other: Moving all extremities well without any obvious deformities Course Reevaluation(s) Reevaluation #1: Patient's ultrasound shows a large Terrell's cyst, CT scan of the abdomen pelvis shows no acute pathology. These results were discussed with her and she is stable for discharge Time: 20:59 Medical Decision Making Medical Decision Making MDM Narrative: 63-year-old female presents for evaluation of numerous complaints. She did complain of chest pain but is not having any active chest pain, her EKG is nonischemic, troponin is negative. This is been going on for weeks to months. She rules out for ACS. She has no significant lab abnormalities warranting intervention. If any of the symptoms are acute. Given the reports of right leg swelling with a history of PE and not anticoagulated we will get an ultrasound of the right lower extremity to evaluate for DVT. The patient is complaining of difficulty urinating as well as flank pain and back pain, get a CT scan of the abdomen pelvis to evaluate for obstructive uropathy. Her urinalysis shows no evidence of UTI or blood. Vital signs are stable. Differential Diagnosis Differential Diagnoses: The differential diagnosis associated with the presentation includes Chronic pain Fibromyalgia ACS less likely UTI Cystitis Flank pain DVT CHF Lab Data 03/11/24 15:24 03/11/24 15:24 Labs: Lab Results 03/11/24 03/11/24 Range/Units 15:24 15:56 WBC 9.6 (4.8-10.8) X10*3/uL RBC 3.59 L (4.20-5.50) X10*6/uL Hgb 10.6 L (12.0-16.0) g/dl Hct 31.6 L (37.0-47.0) % MCV 88.0 (80.0-98.0) fL MCH 29.5 (27.0-33.0) pg MCHC 33.5 (31.0-35.0) g/dl RDW 16.3 H (11.0-16.0) % Plt Count 191 D (160-400) X10*3/uL MPV 9.9 (9.4-12.3) fL Immature Gran % (Auto) 0.5 H (0.0-0.4) % Neut % (Auto) 62.9 (45-73) % Lymph % (Auto) 26.1 (20-40) % [place] % (Auto) 7.7 (2-11) % Eos % (Auto) 2.4 (0-4) % Baso % (Auto) 0.4 (0-2) % Lymph # (Auto) 2.5 (1.2-4.9) X10*3/uL [place] # (Auto) 0.7 (0.1-1.2) X10*3/uL Eos # (Auto) 0.2 (0.0-0.4) X10*3/uL Baso # (Auto) 0.0 (0.0-0.2) X10*3/uL Abs Immat Gran (auto) 0.05 H (0.00-0.03) X10*3/uL Absolute Neuts (auto) 6.0 (2.0-8.3) x10*3/uL Absolute Nucleated RBC 0.000 (0.0-0.012) X10*3/uL Nucleated RBC % (auto) 0.0 (0.0-0.2) /100WBC Hold Purple Top SEE NOTE Hold Blue Top SEE NOTE Sodium 135 (135-145) mmol/L Potassium 4.0 (3.3-5.1) mmol/L Chloride 102 (96-108) mmol/L Carbon Dioxide 26 (22-29) mmol/L Anion Gap 11 L (12-20) BUN 15 (9-16) mg/dL Creatinine 0.78 (0.5-1.4) mg/dL Estim Creat Clear Calc 79.2 Estimated GFR > 60 Random Glucose 99 (60-115) mg/dL Calcium 8.5 (8.4-10.2) mg/dL Magnesium 2.0 (1.6-2.6) mg/dL Total Bilirubin 0.4 (0.0-1.0) mg/dL AST 14 (5-31) U/L ALT 13 (0-31) U/L Alkaline Phosphatase 84 (39-117) U/L Troponin I High Sens < 2.7 (<3.5-17.0) ng/L Total Protein 6.1 L (6.5-8.0) g/dL Albumin 3.4 L (3.5-5.0) g/dL Urine Color Yellow Urine Appearance Clear Urine pH 5.5 (5.0-9.0) Ur Specific [place] 1.015 (1.005-1.025) Urine Protein Negative (Neg-Trace) mg/dL Urine Glucose (UA) Negative (Negative) mg/dL Urine Ketones Negative (Negative) mg/dL Urine Blood Negative (Negative) Urine Nitrite Negative (Negative) Ur Leukocyte Esterase Negative (Negative) Influenza Type A (PCR) NEGATIVE (Negative) Influenza Type B (PCR) NEGATIVE (Negative) RSV RNA Qual (PCR) NEGATIVE (Negative) SARS-CoV-2 RNA (RT-PCR) NEGATIVE (Negative) Discharge Plan Discharge Clinical Impression: Body aches, Pain and swelling of lower leg Patient Disposition: Home, Self-Care Instructions: Bakers Cyst (ED) Additional Instructions: Your workup in the ER today showed a large Terrell's cyst behind your right leg which could be contributing to your pain and swelling Your blood work and CT scan did not show any concerning abnormalities Prescriptions: No Action (DME) nebulizers Misc See Rx Instructions .Route Qty: 1 0RF Rx Instructions: As directed albuterol sulfate 2.5 mg /3 mL (0.083 %) solution for nebulization 2.5 mg inhalation Q6H PRN (Reason: shortness of breath or wheezing) 30 Days Qty: 360 3RF lisinopril-hydrochlorothiazide 10-12.5 mg tablet 1 tab PO DAILY 90 Days Qty: 90 1RF methocarbamol 750 mg tablet 750 mg PO BID PRN (Reason: muscle spasm) 60 Days Qty: 60 3RF fluoxetine 20 mg capsule 60 mg PO DAILY Qty: 90 6RF propranolol 10 mg tablet 10 mg PO BID PRN (Reason: anxiety) 30 Days Qty: 60 2RF hydroxyzine HCl 50 mg tablet 50 mg PO BEDTIME 30 Days Qty: 30 3RF clonidine HCl 0.2 mg tablet 0.2 mg PO BEDTIME 90 Days Qty: 90 2RF methylphenidate HCl [Concerta] 36 mg tablet extended release 24hr 36 mg PO DAILY 28 Days Qty: 28 0RF Rx Instructions: Partial Fill upon patient request. lidocaine 5 % adhesive patch,medicated 1 patch topical DAILY 30 Days Qty: 30 2RF Rx Instructions: leave on most painful area for up to 12 hrs vitamin B complex Tablet 1 tab PO DAILY buprenorphine-naloxone [Suboxone] 8-2 mg film 1 strip sublingual DAILY albuterol sulfate [Ventolin HFA] 90 mcg/actuation HFA aerosol inhaler 1 puff INHALATION Q4H PRN (Reason: muscle spasm) omeprazole 40 mg capsule,delayed release(DR/EC) 40 mg PO DAILY@0630 clonazepam 1 mg tablet 1 mg PO BEDTIME (DME) cane Device See Rx Instructions .Route Qty: 1 0RF Rx Instructions: As directed multivitamin Tablet 1 tab PO DAILY Breztri Aerosphere 160-9-4.8 mcg/actuation HFA aerosol inhaler 2 inh inhalation BID Qty: 1 6RF pregabalin [Lyrica] 50 mg capsule 50 mg PO BID 30 Days Qty: 60 1RF trazodone 100 mg tablet 100 mg PO BEDTIME 90 Days Qty: 90 1RF primidone 50 mg tablet 25 mg PO .COMPLEX Qty: 30 6RF Rx Instructions: 25 mg orally 1/2 tab qama nd q 2 pm; Print Language: Croatian
[2024-03-11 18:48] VITALS: BP 96/46; PULSE 68; RESP 18; TEMP 36.6; O2SAT 97
[2024-03-11 20:53] VITALS: BP 98/50; PULSE 60; RESP 16; TEMP 36.3; O2SAT 92
[2024-03-11 21:18] VITALS: BP 98/50; PULSE 60; RESP 16; TEMP 36.3; O2SAT 92
== END 2024-03-11 21:19 | disposition home or self-care (01) ==
PROVIDERS: Emergency Provider Emergency Medicine; PCP Physician Assistant
DX: M79.18 Myalgia, other site (principal); M79.89 Other specified soft tissue disorders; M79.604 Pain in right leg; M71.21 Synovial cyst of popliteal space [Baker], right knee; F17.210 Nicotine dependence, cigarettes, uncomplicated; Z03.818 Encounter for observation for suspected exposure to other biological agents ruled out; Z79.899 Other long term (current) drug therapy
CPT/HCPCS: 0241U; 36415; 74176; 80053; 81003; 83735; 84484; 85025; 93005; 93971; 99284

== ENCOUNTER → 2024-03-11 15:00 | Outpatient (BNV) | payer OTHER, SELFPAY | PROVIDERS: Emergency Provider Emergency Medicine; PCP Physician Assistant; Visit Provider Internal Medicine | DX: G89.29 Other chronic pain (principal) | CPT/HCPCS: 93010 ==

== ENCOUNTER → 2024-03-22 14:52 | Outpatient (REF) | payer OTHER, SELFPAY | LOC: HO.SL 14:52 | PROVIDERS: PCP Internal Medicine; Visit Provider Psychiatry & Neurology Neurology | DX: G47.10 Hypersomnia, unspecified (principal); R06.83 Snoring | CPT/HCPCS: 95806 ==

== ENCOUNTER → 2024-03-22 15:00 | Outpatient (BNV) | payer OTHER, SELFPAY | PROVIDERS: PCP Internal Medicine; Visit Provider Internal Medicine | DX: R06.83 Snoring (principal); G47.10 Hypersomnia, unspecified | CPT/HCPCS: 95806 ==

== ENCOUNTER 2024-03-30 10:47 | Outpatient (AMB) | payer OTHER, SELFPAY ==
[2024-03-30 11:19] VITALS: BP 146/70; PULSE 65; O2SAT 95; BMI 33.0
--- NOTE | 2024-03-30 11:19 | A.OFFPC_ITS ---
Vital Signs 03/30/24 11:19 Height 5 ft 4 in Weight 192 lb 6 oz BMI 33.0 BP 146/70 H Blood Pressure Location Lt brachial Position Sitting Pulse 65 Pulse Source Pulse Oximeter Pulse Oximetry (%) 95 Oxygen Delivery Method Room Air Intake Visit Reasons: ED/F/U/swollen L arm Extension Worker Required: No Accompanied by: Self / Same As Patient Allergies Penicillins [PENICILLINS] Allergy (Intermediate, Verified 03/30/24 11:33) RASH (CHILDHOOD ALLERGY) Medication List - Last Reconciled 03/30/24 by Amari Mckeon PA-C albuterol sulfate 90 mcg/actuation (Ventolin HFA) 1 puff inhalation Q4H PRN albuterol sulfate 2.5 mg (3 mL) inhalation Q6H PRN 30 days buprenorphine-naloxone 8-2 mg (Suboxone) 1 strip sublingual DAILY cane As directed clonazepam 1 mg PO BEDTIME clonidine HCl 0.2 mg PO BEDTIME 90 days fluoxetine 60 mg (3 x 20 mg) PO DAILY fluticasone furoate 200 mcg/actuation (Arnuity Ellipta) 1 inh inhalation DAILY hydroxyzine HCl 50 mg PO BEDTIME 30 days lidocaine 5% 1 patch topical DAILY 30 days lisinopril-hydrochlorothiazide 10-12.5 mg 1 tab PO DAILY 90 days methocarbamol 750 mg PO BID PRN 60 days methylphenidate HCl ER (Concerta) 36 mg PO DAILY 28 days multivitamin 1 tab PO DAILY nebulizers As directed omeprazole 40 mg PO DAILY@0630 pregabalin 100 mg PO BID 30 days primidone 25 mg orally 1/2 tab qama nd q 2 pm; propranolol 10 mg PO BID PRN 30 days trazodone 100 mg PO BEDTIME 90 days umeclidinium-vilanterol 62.5-25 mcg/actuation (Anoro Ellipta) 1 inh inhalation DAILY vitamin B complex 1 tab PO DAILY Tobacco use date assessed: 05/25/23 Dental Screening Dental Screen Date: 05/25/23 HPI ED/F/U/swollen L arm HPI Details Patient is 63-year-old female here today for follow-up visit. We discussed her extremity pains with no clear pain generators. She was started on Lyrica 50 mg b.i.d. which seems to have reduced her pain some. We have increased the Lyrica dose to 100 mg b.i.d.. She does report feeling a whole lot better. She is a bit more physically active and has signed up at the gym to do water aerobics. [facility] Medical History (Updated 03/30/24 @ 11:45 by Amari Mckeon PA-C) Alcohol use disorder, severe, dependence Hypersomnia Snoring Saccular aneurysm Pulmonary embolism SARS-CoV-2 positive Opioid abuse Ganglion cyst Obese Tubular adenoma of colon Otitis externa RUQ abdominal pain GERD (gastroesophageal reflux disease) Acute anxiety Depression Insomnia Surgical History History of esophagogastroduodenoscopy (EGD) Hx of colonoscopy Previous back surgery Family History Father Alzheimer disease Mother Stroke Brother Esophageal cancer Other Mental problem Substance abuse Social History Household Members: Significant Other Household Members Other:: fiancee Housing: Apartment Are you a primary foster care therapist to a significant other at home: No Do you presently have visiting nurse or other home services: No Alcohol intake: current Alcohol intake frequency: does not drink Alcohol type: hard liquor Patient Tobacco Use Status: Current someday Tobacco user Tobacco use type: Cigarette Cigarettes Per Day: 10 Years Smoked: 40 e-Cigarette/Vaping Use: Former Use Second Hand Smoke Exposure: Yes Substance Use Type: Marijuana Advance Directives Date on File: 03/17/22 service: No Current occupational status: employed 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[employer], 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 Sexual orientation: Straight/Heterosexual Cognitive needs: Yes (cane) Hearing needs: No Vision needs: Yes (Glasses) Questionnaire Thrive Questionnaire Date Thrive assessed: 03/08/24 I am a: Patient What is your living situation today?: I have a steady place to live Within the past 12 months, did the food you bought not last and you didn't have the money to get more?: Often true Within the past 12 months, did you worry whether your food would run out before you got money to buy more?: Often true Do you have trouble paying for medicines?: No Do you have trouble getting transportation to medical appointments?: I choose not to answer this question Do you have trouble paying your heating and electricity bill?: I choose not to answer this question Do you have trouble taking care of your child, family member or friend?: No Do you have trouble with day-to-day activities such as bathing, preparing meals, shopping, managing finances, etc.?: Yes Are you currently unemployed and looking for a job?: No Are you interested in more education?: No Currently or been in a relationship where the following occur: No concerns reported THRIVE Score: 2 FOREIGN-7 AMB Questionnaire FOREIGN-7 Date FOREIGN - 7 assessed: 03/08/24 Source: Developed by Drs. Dannie Sandoval, Kathryn Bryant, Felipe Paulson and colleagues, with an educational rupal from [employer]. Review of Systems Const Denies headache(s) Eyes Denies loss of vision ENT Denies vertigo, Denies dizziness, Denies headache(s) and Denies sore throat Card Denies chest pain, Denies leg edema and Denies lightheadedness Resp Denies cough, Denies hemoptysis and Denies wheezing GI Denies abdominal pain, Denies melena, Denies constipation, Denies diarrhea and Denies vomiting Denies urinary frequency, Denies dysuria and Denies urinary urgency Musc Denies arthralgias, Denies joint swelling, Denies numbness and Denies tingling Neuro Denies Abnormal speech present, Denies behavioral changes, Denies vertigo, Denies dizziness, Denies headache(s), Denies loss of vision, Denies memory loss, Denies numbness and Denies tingling Psych Denies anxiety, Denies behavioral changes, Denies depression, Denies memory loss and Denies panic attacks Rizwan/Lymph Denies easy bleeding and Denies easy bruising Aller/Immun Denies wheezing Physical exam (Primary Care) Vital Signs: Last Vital Signs Pulse 65 03/30/24 11:19 BP 146/70 H 03/30/24 11:19 Pulse Ox 95 03/30/24 11:19 Oxygen Delivery Method Room Air 03/30/24 11:19 BMI result Body Mass Index 33.0 Tobacco/Smoking Status: Tobacco use Status Tobacco use date assessed 05/25/23 03/30/24 11:22 Patient Tobacco Use Status Current someday Tobacco 03/30/24 11:22 Tobacco use type Cigarette 03/30/24 11:22 e-Cigarette/Vaping Use Former Use 03/30/24 11:22 Thrive Assessment: Date of Thrive Assessment Date Thrive assessed 03/08/24 03/30/24 11:22 Currently or been in a relationship where the following occur: No concerns reported Const General: healthy appearing, no acute distress, alert and awake Nutritional Appearance: well nourished Orientation/consciousness: oriented to person, oriented to place and oriented to time HENMT Ears: TM's normal bilaterally General nose exam: Normal nasal mucous membranes and turbinates present Eyes Conjunctivae: conjunctivae normal Sclerae: sclerae normal Pupils: Equal, round and reactive pupils present Neck Neck: Yes no lymphadenopathy and Yes no JVD Thyroid: Thyroid normal Carotids: no bruits Resp Effort & Inspection: normal respiratory effort and not tachypneic Auscultation: no crackles, no rales, no rhonchi and no wheezes Cardio Rate: regular rate Rhythm: regular rhythm Heart sounds: no murmurs and normal S1 and S2 GI Palpation (GI): Soft to palpation, nontender, no hepatomegaly and no splenomegaly Auscultation: normal bowel sounds Skin General skin exam: no rashes or lesions noted and dry skin Neuro General: oriented to person, oriented to place and oriented to time Cranial nerves: Yes Equal, round and reactive pupils present Speech: No Abnormal speech present Gait exam (Neuro): Normal gait present Motor exam (neuro): no tremor noted Extrem Right upper extremity: full ROM Left upper extremity: full ROM Right lower extremity: full ROM; no edema Left lower extremity: full ROM; no edema Psych Mental Status: mental status grossly normal Speech and movement: Normal speech and movement present Affect: normal affect Attitude: cooperative Thought process: Normal thought process present Coding Level of Care Code Est Pt Level 4 (00988) Diagnoses Fibromyalgia M79.7 Assessment & Plan Assessment & Plan (1) Fibromyalgia: Code(s): M79.7 - Fibromyalgia Category: Medical Plan: As per HPI patient has reduction her pain with starting Lyrica at 100 mg b.i.d.. Will continue on this dose for now. She is already in mental health therapy. She will also start being more physically active as she was signed out to be an water aerobic
== END 2024-03-30 11:56 | disposition home or self-care (01) ==
LOC: HO.HMCH 10:47
PROVIDERS: PCP Physician Assistant; Visit Provider Physician Assistant
DX: M79.7 Fibromyalgia (principal)

== ENCOUNTER → 2024-03-30 10:47 | Outpatient (BNVA) | payer OTHER, SELFPAY | PROVIDERS: PCP Physician Assistant; Visit Provider Physician Assistant | DX: M79.7 Fibromyalgia (principal) | CPT/HCPCS: 99212 ==

== ENCOUNTER 2024-04-06 08:40 | Outpatient (REF) | payer OTHER, SELFPAY ==
--- NOTE | ~2024-04-06 | XR_ITS ---
EXAMINATION: XR KNEE, LEFT CLINICAL INFORMATION: M25.569 - Pain in unspecified knee COMPARISON: None available. TECHNIQUE: AP view of the left knee. FINDINGS: No fracture, focal bony abnormality noted. Mild to moderate medial compartment narrowing. Lateral compartment joint spaces preserved although there is subtle marginal spurring. Chondrocalcinosis in the medial and lateral compartments, suggesting underlying CPPD. Mild spurring of the tibial spines. Normal alignment. Soft tissues appear normal. XR/XR knee LT 1V IMPRESSION: 1. No acute findings left knee. 2. Mild to moderate medial compartment joint space narrowing and mild arthritis in the lateral compartment. 3. Chondrocalcinosis present suggesting underlying CPPD. Electronically signed by: Angelo Bah MD 05/02/2024 09:08 AM [facility]
--- NOTE | ~2024-04-06 | XR_ITS ---
EXAMINATION: XR KNEE, RIGHT CLINICAL INFORMATION: M25.561 - Pain in right knee COMPARISON: None available. TECHNIQUE: Four views of the right knee. FINDINGS: No fracture or focal bony lesion. Mild to moderate medial compartment joint space narrowing. Preservation of joint space and lateral compartment although there is mild marginal spurring. Spurring of the tibial spines. Chondrocalcinosis in the medial and lateral compartments, raising the possibility of underlying CPPD. Mild degenerative arthritis of patellofemoral compartment. Probable joint effusion on the lateral projection although limited due to knee flexion. No discrete soft tissue abnormalities. XR/XR knee RT 3V IMPRESSION: 1. Mild to moderate joint space narrowing medial compartment, and mild arthritis lateral and patellofemoral compartment. 2. Chondrocalcinosis present suggesting underlying CPPD. 3. Suspect a joint effusion although assessment is limited due to flexed position of the knee. Electronically signed by: Angelo Bah MD 05/02/2024 09:12 AM [facility]
== END 2024-04-06 08:41 | disposition home or self-care (01) ==
LOC: HO.HOSX 08:40
PROVIDERS: Visit Provider Orthopaedic Surgery
DX: M25.561 Pain in right knee (principal); M25.562 Pain in left knee
CPT/HCPCS: 20610; 73560; 73562; 99202; J0665; J1100; J2003

== ENCOUNTER → 2024-04-06 08:54 | Outpatient (BNV) | payer OTHER, SELFPAY | PROVIDERS: Visit Provider Radiology Diagnostic Radiology | DX: M25.561 Pain in right knee (principal); M25.562 Pain in left knee | CPT/HCPCS: 73560; 73562 ==

== ENCOUNTER 2024-04-06 08:55 | Outpatient (AMB) | payer OTHER, SELFPAY ==
--- NOTE | 2024-04-06 08:58 | A.OFFVIS_ITS ---
Vital Signs 04/06/24 09:16 Height 5 ft 4 in Weight 192 lb BMI 33.0 Intake Visit Reasons: CLINICAL REHABILITATION LIAISON- Right Knee Pain Intake Note: Alessandra is a 63 year old female who presents today as a new patient with complaints of right knee pain. Patient complains of widespread pain in knees, left hip and lower back. Patient reports that she has had ongoing right knee pain for quite some time. Hx of right knee aspiration, which was helpful. Currently she complains of pain that is felt most of the time, feels better while take Ibuprofen. She is being evaluated with a Neurosurgeon for her lower back pain. Was taking Gabapentin with no relief and is transitioning to lyrica due to concerns for fibromyalgia. Allergies Penicillins [PENICILLINS] Allergy (Intermediate, Verified 03/30/24 11:33) RASH (CHILDHOOD ALLERGY) HPI HPI CLINICAL REHABILITATION LIAISON- Right Knee Pain: Details: Alessandra is a 63 year old female who presents today as a new patient with complaints of right knee pain. Patient complains of widespread pain in knees, left hip and lower back. Patient reports that she has had ongoing right knee pain for quite some time. Hx of right knee aspiration, which was helpful. Currently she complains of pain that is felt most of the time, feels better while take Ibuprofen. She is being evaluated with a Neurosurgeon for her lower back pain. Was taking Gabapentin with no relief and is transitioning to lyrica due to concerns for fibromyalgia. [facility] Medical History Alcohol use disorder, severe, dependence Hypersomnia Snoring Saccular aneurysm Pulmonary embolism SARS-CoV-2 positive Opioid abuse Ganglion cyst Obese Tubular adenoma of colon Otitis externa RUQ abdominal pain GERD (gastroesophageal reflux disease) Acute anxiety Depression Insomnia Surgical History History of esophagogastroduodenoscopy (EGD) Hx of colonoscopy Previous back surgery Family History Father Alzheimer disease Mother Stroke Brother Esophageal cancer Other Mental problem Substance abuse Social History Household Members: Significant Other Household Members Other:: fiancee Housing: Apartment Are you a primary home care companion to a significant other at home: No Do you presently have visiting nurse or other home services: No Alcohol intake: current Alcohol intake frequency: does not drink Alcohol type: hard liquor Patient Tobacco Use Status: Current someday Tobacco user Tobacco use type: Cigarette Cigarettes Per Day: 10 Years Smoked: 40 e-Cigarette/Vaping Use: Former Use Second Hand Smoke Exposure: Yes Substance Use Type: Marijuana Advance Directives Date on File: 03/17/22 service: No Current occupational status: employed 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 Mild pain in the tibiofemoral joint line but less so. Full range of motion. Small Terrell's cyst. Office Procedures Joint Inj/Aspir; Non-Pain Clin Joint Injection/Drain Details: Injected 1 mL of Decadron and 3 mL 1% lidocaine and 3 mL of 0.25% Marcaine. Site was prepped using aseptic technique. Patient tolerated the procedure well. Approach Used: anterolateral Shoulders, Hips, Knees, Knee Large Joint Injection : Right Knee Coding Procedure code (CPT) selection complete Quality Reporting (2019) Adult ([facility] ) Smoking risk assessment performed?: Yes Patient Tobacco Use Status: Current someday Tobacco user Assessment & Plan Assessment & Plan (1) Knee pain, right: Code(s): M25.561 - Pain in right knee Category: Medical Qualifiers: Chronicity: unspecified Qualified Code(s): M25.561 - Pain in right knee Plan: Right knee pain. I injected her tibiofibular joint of the right knee. If this is not helpful we can consider a different knee injection but at this time I feel like this was where she was having pain. Plan Right Knee Injection Orders: Orders XR knee RT 3V Today M25.561 - Pain in right knee XR knee LT 1V Today M25.569 - Pain in unspecified knee Coding Level of Care Code New Pt Level 3 (20438) Diagnoses Knee pain, right M25.561 Chronicity: unspecified CPT Codes Shoulders, Hips, Knees, - Knee Large Joint Injection [id number]: Right Knee ([id number])
[2024-04-06 09:16] VITALS: BMI 33.0
== END 2024-04-06 10:52 | disposition home or self-care (01) ==
PROVIDERS: PCP Physician Assistant; Visit Provider Orthopaedic Surgery
DX: M25.561 Pain in right knee (principal)
CPT/HCPCS: 20610; 99203

== ENCOUNTER 2024-04-13 13:16 | Outpatient (AMB) | payer OTHER, SELFPAY ==
--- NOTE | 2024-04-13 13:49 | HO.SPINEOV ---
Intake Visit Reasons: MRI f/u possible sx discussion Intake Note: Ms. Thomas is here today to discuss the results of her MRI and possible surgical options. 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 Please refer to my last notes for the specifics of her problem. She has had chronic low back pain that has been getting steadily worse with standing and activity. We had considered her for possible anterior lumbar interbody fusion at L5-S1 as an adjacent segment disc disease. We got a new MRI which was done here at [place] since her last one was 2 years old. There is no formal read back yet from the radiologist, but it looks to me like she has ongoing degenerative disc disease at L5-S1 as we suspected. I am seeing a little bit of facet hypertrophy at L3-4. It looks worse than it did from 2 years ago. I am going to send her for flexion-extension x-rays to rule out that there is not also adjacent segment disease at L3-4. Once I have a chance to sit down with Dr. Briones, I will call her with the final surgical plan. She has previously had an ovarian cyst removed from her abdomen about 30 years ago or so. She does not recall whether that that was a laparotomy type surgery. I looked at her scar in her abdomen, it looks like a horizontal incision about where a section incision would be. I am not sure if that will be a contraindication for Dr. Solis. Once we have a final plan we will consult him about that as well. Total amount of time spent in this visit was 20 minutes in discussion of symptoms, lumbar MRI imaging results and subsequent plan of care Niles Briones MD,PhD [facility] Orders: Orders XR lumbar spine 4V min Today M54.16 - Radiculopathy, lumbar region Coding Level of Care Code Est Pt Level 3 (63800) Diagnoses Lumbar radiculopathy, chronic M54.16
== END 2024-04-13 14:55 | disposition home or self-care (01) ==
PROVIDERS: PCP Physician Assistant; Visit Provider Physician Assistant
DX: M54.16 Radiculopathy, lumbar region (principal)
CPT/HCPCS: 99213

== ENCOUNTER 2024-04-13 13:16 | Outpatient (REF) | payer OTHER, SELFPAY ==
--- NOTE | ~2024-04-13 | XR_ITS ---
EXAMINATION: XR LUMBOSACRAL SPINE CLINICAL INFORMATION: M54.16 - Radiculopathy, lumbar region COMPARISON: 03/12/2022. TECHNIQUE: 3 views of the lumbar spine, inclusive of flexion and extension views, were obtained. FINDINGS: Normal bony mineralization. No fracture, dislocation, subluxation, or suspicious bone lesion. No compression deformity. There is been placement of titanium disc grafts at L4-5. Hardware appears intact, well seated, in expected alignment. No complications. No subluxations present. No new or worsening subluxations on flexion-extension views. Moderate disc degeneration present at L3-4, and L5-S1. Facet degeneration present spanning L3-S1. Soft tissues demonstrate vascular calcifications, with ectatic appearing infrarenal aorta measuring up to 3.1 cm. XR/XR lumbar spine 4V min IMPRESSION: 1. No acute findings lumbar spine. 2. Disc prostheses and fusion L4-5 without complication. 3. Degenerative disc changes mainly seen L3-4, and L5-S1. 4. Degenerative facet changes L3-S1. 5. No evidence of subluxation or instability on flexion and extension views. Electronically signed by: Angelo Bah MD 05/02/2024 09:18 AM [facility]
== END 2024-04-13 13:17 | disposition home or self-care (01) ==
LOC: HO.HOSX 13:16
PROVIDERS: PCP Physician Assistant; Visit Provider Physician Assistant
DX: M54.16 Radiculopathy, lumbar region (principal); G89.29 Other chronic pain; Z98.890 Other specified postprocedural states
CPT/HCPCS: 72110; 99212

== ENCOUNTER → 2024-04-13 14:20 | Outpatient (BNV) | payer OTHER, SELFPAY | PROVIDERS: PCP Physician Assistant; Visit Provider Radiology Diagnostic Radiology | DX: M54.50 Low back pain, unspecified (principal) | CPT/HCPCS: 72110 ==

== ENCOUNTER 2024-04-24 16:17 | Outpatient (REF) | payer OTHER, SELFPAY ==
--- NOTE | ~2024-04-24 | MM_ITS ---
EXAMINATION: MM SCREENING DIGITAL BREAST TOMOSYNTHESIS, BILATERAL CLINICAL INFORMATION: Screening. Asymptomatic. COMPARISON: Mammography: Comparison is made with available priors TECHNIQUE: Digital breast mammography with tomosynthesis is performed in both the craniocaudal and mediolateral oblique views along with computer-aided detection (CAD). FINDINGS: There are scattered areas of fibroglandular density (ACR BI-RADS breast composition Category b). There are no significant masses, abnormal calcifications, or other abnormalities. MM/MM tomosynthesis screening BI IMPRESSION: No mammographic evidence of malignancy. ASSESSMENT: BI-RADS BI-RADS 1 - Negative RECOMMENDATION: Routine annual mammography screening. 1 year F/U This examination should not preclude the clinical evaluation of a suspicious palpable abnormality. This patient's information was entered into a reminder system with a target due date for their next mammogram. Electronically signed by: Areli Amaro DO 05/01/2024 10:44 AM [facility]
== END 2024-04-24 16:18 | disposition home or self-care (01) ==
LOC: HO.MAMMO 16:17
PROVIDERS: PCP Physician Assistant; Visit Provider Physician Assistant
DX: Z12.31 Encounter for screening mammogram for malignant neoplasm of breast (principal)
CPT/HCPCS: 77063; 77067

== ENCOUNTER → 2024-04-24 16:30 | Outpatient (BNV) | payer OTHER, SELFPAY | PROVIDERS: PCP Physician Assistant; Visit Provider Internal Medicine | DX: Z12.31 Encounter for screening mammogram for malignant neoplasm of breast (principal) | CPT/HCPCS: 77063; 77067 ==

== ENCOUNTER 2024-06-20 06:11 | Outpatient (BNV) | payer OTHER, SELFPAY | END 2024-06-20 08:52 | PROVIDERS: Admitting Provider Neurological Surgery; PCP Physician Assistant; Visit Provider Radiology Diagnostic Radiology | DX: M54.16 Radiculopathy, lumbar region (principal) | CPT/HCPCS: 74018 ==

== ENCOUNTER → 2024-06-20 06:11 | Outpatient (BNV) | payer OTHER, SELFPAY | PROVIDERS: Admitting Provider Neurological Surgery; PCP Physician Assistant; Visit Provider Neurological Surgery | DX: M54.16 Radiculopathy, lumbar region (principal) | CPT/HCPCS: 20930; 22558; 22845; 22853; 99024; 99499; G0180 ==

== ENCOUNTER 2024-06-30 15:36 | Outpatient (AMB) | payer OTHER, SELFPAY ==
--- NOTE | 2024-06-30 15:45 | MHC.PC.OV ---
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: No Accompanied by: Self / Same As Patient Allergies Penicillins [PENICILLINS] Allergy (Intermediate, Verified 06/30/24 15:46) RASH (CHILDHOOD ALLERGY) Tobacco use date assessed: 06/30/24 Fall risk assessment: No Falls in past year Last assessed Fall Risk: 06/30/24 Dental Screening Dental Screen Date: 06/30/24 Did you have a dental visit in the last 12 months?: Yes Did you have a dental problem in the last 6 months where you did not have access to dental care?: No Was dental information given to patient?: Patient has dentist HPI HPI Comments History of Present Illness Details 63 y/o female patient who presents to the clinic for HDF. [place] [facility] [place] 06/21/24. S/p Lumbar surgery ALIF L5-S1 06/20/24. Pt c/o Constipation and severe pain on back. Pt reports that she has not had Post-Op surgery appointment yet - advised to call the office for an appontment. [facility] Medical History Arthritis Degenerative disc disease, lumbar Back pain Fibromyalgia Thrombocytopenia Constipation Hiatal hernia Hepatitis C Sleep apnea Tremor of both hands Forgetfulness ADHD SOB (shortness of breath) Wheezing Bronchitis COPD (chronic obstructive pulmonary disease) Hypersomnia Snoring Saccular aneurysm Pulmonary embolism SARS-CoV-2 positive Opioid abuse Alcohol use disorder, severe, dependence Ganglion cyst Obese Tubular adenoma of colon Otitis externa RUQ abdominal pain GERD (gastroesophageal reflux disease) Acute anxiety Depression Insomnia Surgical History Hx of unilateral oophorectomy Hx of appendectomy History of surgery on right wrist Hx of shoulder surgery History of esophagogastroduodenoscopy (EGD) Hx of colonoscopy Previous back surgery Family History Father Alzheimer disease Mother Stroke Brother Esophageal cancer Other Mental problem Substance abuse Social History Household Members: Significant Other Household Members Other:: fiancee Housing: Apartment Are you a primary nurse care manager to a significant other at home: No Do you presently have visiting nurse or other home services: No Alcohol intake: current Alcohol intake frequency: does not drink Alcohol type: hard liquor Patient Tobacco Use Status: Former Tobacco user Tobacco use type: Cigarette Cigarettes Per Day: 10 Years Smoked: 40 Packs per year/per ci.00 e-Cigarette/Vaping Use: Former Use Second Hand Smoke Exposure: Yes Substance Use Type: Marijuana Advance Directives Date on File: 03/17/22 service: No Current occupational status: employed 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 1. Little interest or pleasure in doing things: more than half the days 2. Feeling down, depressed, or hopeless: more than half the days 3. Trouble falling or staying asleep, or sleeping too much: nearly every day 4. Feeling tired or having little energy: nearly every day 5. Poor appetite or overeating: nearly every day 6. Feeling bad about yourself - or that you are a failure or have let yourself or your family down: several days 7. Trouble concentrating on things, such as reading the newspaper or watching television: not at all 8. Moving or speaking so slowly that other people could have noticed. Or the opposite - being so fidgety or restless that you have been moving around a lot more than usual: several days 9. Thoughts that you would be better off or of hurting yourself in some way: not at all Total score: 15 Depression Screening Interpretation: Positive Depression Screening Follow-up: Existing condition and In treatment Depression Screening Done: Yes 00314 - PHQ-9 Billing: Yes Source: Developed by Drs. Dannie Sandoval, Kathryn Bryant, Felipe Paulson and colleagues, with an educational rupal from [employer]. Thrive Questionnaire Date Thrive assessed: 06/30/24 I am a: Patient What is your living situation today?: I have a steady place to live Within the past 12 months, did the food you bought not last and you didn't have the money to get more?: Often true Within the past 12 months, did you worry whether your food would run out before you got money to buy more?: Often true Do you have trouble paying for medicines?: No Do you have trouble getting transportation to medical appointments?: I choose not to answer this question Do you have trouble paying your heating and electricity bill?: I choose not to answer this question Do you have trouble taking care of your child, family member or friend?: No Do you have trouble with day-to-day activities such as bathing, preparing meals, shopping, managing finances, etc.?: Yes Are you currently unemployed and looking for a job?: No Are you interested in more education?: No Currently or been in a relationship where the following occur: No concerns reported THRIVE Score: 2 AUDIT C Alcohol Use Questionnaire (AUDIT-C) 1. How often do you have a drink containing alcohol?: Never 3. How often do you have six or more drinks on one occasion?: Never Total Score: 0 FOREIGN-7 AMB Questionnaire FOREIGN-7 Date FOREIGN - 7 assessed: 06/30/24 Source: Developed by Drs. Dannie Sandoval, Kathryn Bryant, Felipe Paulson and colleagues, with an educational rupal from [employer]. Review of Systems Const All systems reviewed & are unremarkable except as noted in HPI and below Physical exam (Primary Care) Vital Signs: Last Vital Signs Temp 96.6 F L 06/30/24 15:46 Pulse 64 06/30/24 15:46 BP 90/56 L 06/30/24 15:46 Pulse Ox 93 06/30/24 15:46 Oxygen Delivery Method Room Air 06/30/24 15:46 BMI result Body Mass Index 33.5 Tobacco/Smoking Status: Tobacco use Status Tobacco use date assessed 06/30/24 06/30/24 15:52 Patient Tobacco Use Status Former Tobacco user 06/30/24 15:52 Tobacco use type Cigarette 06/30/24 15:52 e-Cigarette/Vaping Use Former Use 06/30/24 15:52 PHQ-9: PHQ-9 Score PHQ-9: Total score 15 06/30/24 15:52 Depression Screening Interpretation: Positive Depression Screening Follow-up: Existing condition and In treatment Thrive Assessment: Date of Thrive Assessment Date Thrive assessed 06/30/24 06/30/24 15:52 Currently or been in a relationship where the following occur: No concerns reported Const General: no acute distress; No comfortable Nutritional Appearance: overweight Orientation/consciousness: patient oriented x3 Resp Effort & Inspection: normal respiratory effort Auscultation: clear to auscultation bilaterally Cardio Heart sounds: S1 normal heart sound present and S2 normal heart sound present GI Palpation (GI): Soft to palpation, not firm, Tenderness to palpation present (GI) suprapubicly (Surgical incision), no guarding, not rigid and No hepatosplenomegaly present Auscultation: normal bowel sounds Rectal Exam - Female: deferred Abdomen image: 1. Liner surgical incision, clean dry and no signs of infection. Heeling well, mild TTP. Neuro General: patient oriented x3 Coding Level of Care Code Est Pt Level 4 (44603) Diagnoses S/P lumbar and lumbosacral fusion by anterior technique Z98.1 Slow transit constipation K59.01 Constipation type: slow transit constipation Additional Codes PHQ-9 - 85266 - PHQ-9 Billing: Yes ([id number]) Time Spent (min) 20 Assessment & Plan Assessment & Plan (1) S/P lumbar and lumbosacral fusion by anterior technique: Code(s): Z98.1 - Arthrodesis status Plan: Advised Pt to call Neuro-Surgery for a post-op appointment. (2) Constipation: Code(s): K59.00 - Constipation, unspecified Qualifiers: Constipation type: slow transit constipation Qualified Code(s): K59.01 - Slow transit constipation Plan: Ordered Milarax and Dulcolax Diet High in Fiber Stop Narcotics and start taking NSAIDs or Acetaminophen for pain relief. Medications: New polyethylene glycol 3350 (Miralax) 17 grams PO BID 238 grams 0RF K59.01 - Slow transit constipation bisacodyl (Dulcolax (bisacodyl)) 5 mg PO DAILY 20 tabs 0RF K59.01 - Slow transit constipation
[2024-06-30 15:46] VITALS: BP 90/56; PULSE 64; TEMP 35.9; O2SAT 93; BMI 33.5
== END 2024-06-30 16:21 | disposition home or self-care (01) ==
PROVIDERS: PCP Physician Assistant; Visit Provider Nurse Practitioner Family
DX: Z98.1 Arthrodesis status (principal); K59.01 Slow transit constipation

== ENCOUNTER → 2024-06-30 15:36 | Outpatient (BNVA) | payer OTHER, SELFPAY | PROVIDERS: PCP Physician Assistant; Visit Provider Nurse Practitioner Family | DX: K59.01 Slow transit constipation (principal); Z98.1 Arthrodesis status | CPT/HCPCS: 96127; 99212 ==

== ENCOUNTER 2024-07-11 12:31 | Outpatient (AMB) | payer OTHER, SELFPAY ==
--- NOTE | 2024-07-11 12:44 | HO.SPINEOV ---
Intake Visit Reasons: 1st post Intake Note: Ms. Thomas is here today for her 1st post op. 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 She underwent L5-S1 ALIF a few weeks ago. To recap she was initially evaluated in clinic for low back pain and shooting pain down her right lower extremity. She reports she is very satisfied with the surgery and feels much better than she did preoperatively. The patient reports she is up walking around and completing the majority of her ADLs. She reports that she no longer suffers from her severe right-sided shooting radiculopathy, but does still reports some mild low back pain and newer R knee pain. She did ask when she will be able to go swimming as this is the primary form of exercise for her. I encouraged her to wait another couple of weeks as the scabs have not completely healed over and fallen off on her anterior incision. No new neurological deficits. Patient is able to ambulate well, rises from a seated position without difficulty. Incision site is closed, well healing, with no signs of drainage. We will follow-up with the patient in 6 weeks for their 2nd postoperative visit. At that time we will get x-rays to review with the patient. Dilshad Briones MD,PhD [facility] Coding Level of Care Code Global (42991) Diagnoses S/P spinal fusion Z98.1
--- OUTSIDE RECORDS SUMMARY | 2024-07-11 13:23 | XMS_ITS | Continuity of Care Document ---
Author Organization [facility] vices Address [address] [place] [address] Phone Care Team Providers Care Heart Doctor Name Role Phone Unavailable Unavailable Unavailable Allergies, [...] Diagnoses Date Provider Providers Copied on Encounter [facility], [address] [place] [address], [facility] [place], tel:[phone] [facility] Behavioral Health No Information 1 No Information [facility], [address] [place] [address], [facility] [place], tel:[phone] Conversion AXIS V GLOBAL ASSESS OF FUNCTIONING (GAF) SCALE ___ (100-0) 1 No Information [facility], [address] [place] [address], [facility] [place], tel:[phone] Conversion No Information 1 No Information [facility], [address] [place] [address], [facility] [place], tel:[phone] Conversion No Information Feb-0 1-201 1 No Information [facility], [address] [place], [address], [place] tel:[phone] [facility] No Information Adin-0 5-201 1 No Information GROUP PSYCHOTHERAPY [facility], [address] [place], [address], [place] tel:[phone] [facility] No Information Adin-0 3-201 1 No Information GROUP PSYCHOTHERAPY [facility], [address] [place], [address], [place] tel:[phone] [facility] No Information Dec-2 0-201 0 No Information [facility], [address] [place], [address], [place] tel:[phone] [facility] No Information Dec-1 5-201 0 No Information [facility], [address] [place] [address], [address], [place] tel:[phone] [facility] No Information Dec-1 5-201 0 No Information PSYCHOTHERAPY, GROUP [facility], [address] [place] [address], [address], [place] tel:[phone] [facility] No Information Dec-1 3-201 0 No Information [facility], [address] [place], [address], [place] tel:[phone] [facility] No Information Dec-0 7-201 0 No Information GROUP PSYCHOTHERAPY [facility], [address] [place] [address], [address], [place] tel:[phone] [facility] No Information Dec-0 6-201 0 No Information GROUP PSYCHOTHERAPY [facility], [address] [place] [address], [address], [place] tel:[phone] [facility] No Information Nov-2 9-201 0 No Information [facility], [address] [place] [address], [address], [place] tel:[phone] [facility] No Information Nov-2 4-201 0 No Information GROUP PSYCHOTHERAPY [facility], [address] [place] [address], [address], [place] tel:[phone] [facility] No Information Nov-2 2-201 0 No Information [facility], [address] [place], [address], [place] tel:[phone] [facility] No Information Nov-1 6-201 0 No Information GROUP PSYCHOTHERAPY [facility], [address] [place] [address], [facility] [place], [place] tel:[phone] [facility] No Information Nov-1 5-201 0 No Information [facility], [address] [place] [address], [facility] [place], [place] tel:[phone] [facility] No Information Nov-0 9-201 0 No Information GROUP PSYCHOTHERAPY [facility], [address] [place] [address], [address], [place] tel:[phone] [facility] No Information Nov-0 8-201 0 No Information [facility], [address] [place] [address], [facility] [place], [place] tel:[phone] [facility] No Information Nov-0 4-201 0 No Information GROUP PSYCHOTHERAPY [facility], [address] [place] [address], [facility] [place], [place] tel:[phone] [facility] No Information Nov-0 1-201 0 No Information [facility], [address] [place] [address], [address], [place] tel:[phone] [facility] No Information Feb-2 9 0 No Information [facility], [address] [place] [address], [address], [place] tel:[phone] [facility] No Information Feb-2 6- 0 No Information [facility], [address] [place] [address], [address], [place] tel:[phone] Historic Immunization Location No Information Feb-2 6-201 0 No Information DETAILED OUT/PT [facility], [address] [place] [address], [address], [place] tel:[phone] [facility] Adult Medicine No Information Feb-2 6- 0 No Information [facility], [address] [place] [address], [address], [place] tel:[phone] Conversion No Information Feb-2 5-201 0 No Information [facility], [address] [place] [address], [address], [place] tel:[phone] [facility] No Information Oct-2 5-201 0 No Information [facility], [address] [place] [address], [address], [place] tel:[phone] [facility] No Information Oct-2 0-201 0 No Information [facility], [address] [place] [address], [facility] [place], [place] tel:[phone] Conversion No Information Oct-2 0-201 0 No Information [facility], [address] [place] [address], [facility] [place], [place] tel:[phone] [facility] No Information Sep-3 0-201 0 No Information [facility], [address] [place] [address], [address], [place] tel:[phone] Conversion ALCOHOL ABUSE Sep-3 0-201 0 No Information [facility], [address] [place] [address], [facility] [place], [place] tel:[phone] Conversion COUNSELING ON SUBSTANCE USE AND ABUSELACK OF PHYSICAL EXERCISE Sep-2 7-201 0 No Information [facility], [address] [place] [address], [facility] [place], [place] tel:[phone] [facility] No Information Sep-2 0-201 0 No Information [facility], [address] [place] [address], [address], [place] tel:[phone] Conversion No Information Sep-2 0-201 0 No Information [facility], [address] [place] [address], [facility] [place], [place] tel:[phone] [facility] No Information Sep-0 9-201 0 No Information [facility], [address] [place] [address], [address], [place] tel:[phone] Conversion NONDEPENDENT ABUSE OF DRUGS, OPIOID ABUSE, EPISODICANXIE TY STATE, UNSPECIFIEDHY POGLYCEMIA UNSPECIFIED, NON-DIABETIC Dec-2 4 0 No Information DETAILED OUT/PT [facility], [address] [place] [address], [address], [place] tel:[phone] [facility] Adult Medicine No Information Dec-2 4 0 No Information [facility], [address] [place] [address], [address], [place] tel:[phone] Conversion No Information 0 No Information [facility], [address] [place], [address], [place] tel:[phone] [facility] No Information 0 No Information [facility], [address] [place] [address], [address], [place] tel:[phone] [facility] Behavior[facility] No Information 0 No Information [facility], [address] [place], [address], [place] tel:[phone] [facility] No Information 0 No Information [facility], [address] [place] [address], [address], [place] tel:[phone] [facility] No Information 0 No Information [facility], [address] [place] [address], [address], [place] tel:[phone] Conversion REFLUX ESOPHAGITISFA TIGUE/MALAISE NONDEPENDENT ABUSE OF DRUGS, OPIOID ABUSE, IN REMISSION 0 No Information DETAILED OUT/PT [facility], [address] [place], [address], [place] tel:[phone] [facility] Adult [facility] No Information 0 No Information [facility], [address] [place] [address], [address], [place] tel:[phone] Conversion 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 0 No Information [facility], [address] [place] [address], [address], [place] tel:[phone] [facility] No Information 0 No Information [facility], [address] [place] [address], [address], [place] tel:[phone] [facility] No Information 0 No Information [facility], [address] [place] [address], [address], [place] tel:[phone] [facility] No Information 0 No Information [facility], [address] [place] [address], [address], [place] tel:[phone] [facility] No Information 0 No Information [facility], [address] [place] [address], [address], [place] tel:[phone] Conversion COCAINE DEPENDENCE, EPISODICOSTEO ARTHROSIS, GENERALIZED, SITE UNSPECIFIED 8 0 No Information [facility], [address] [place] [address], [address], [place] tel:[phone] [facility] Adult [facility] No Information 0 No Information [facility], [address] [place] [address], [facility] [place], [place] tel:[phone] Conversion HUMAN IMMUNODEFICIE NCY VIRUS [HIV] DISEASE 0 No Information DETAILED OUT/PT [facility], [address] [place] [address], [facility] [place], [place] tel:[phone] [facility] Adult [facility] No Information 9 No Information [facility], [address] [place] [address], [facility] [place], [place] tel:[phone] Conversion HEPATITIS C (CHRONIC)DELGADO ETT'S ESOPHAGUSOTHE R AND UNSPECIFIED ALCOHOL DEPENDENCE, IN REMISSION 9 No Information DETAILED OUT/PT [facility], [address] [place] [address], [address], [place] tel:[phone] [facility] No Information 9 No Information [facility], [address] [place] [address], [facility] [place], [place] tel:[phone] Conversion INSOMNIA, UNSPECIFIEDOT HER CHRONIC PAIN 9 No Information [facility], [address] [place] [address], [address], [place] tel:[phone] Conversion CHOLELITHIASI SESOPHAGITIS UNSPECIFIEDMO TTLED TEETHNONDEPEN DENT OTHER MIXED OR UNSPECIFIED DRUG ABUSE IN REMISSION 9 No Information DETAILED OUT/PT [facility], [address] [place] [address], [facility] [place], [place] tel:[phone] [facility] No Information 9 No Information [facility], [address] [place] [address], [facility] [place], [place] tel:[phone] Conversion HEARTBURNCALC ULUS OF GALLBLADDER WITH OTHER CHOLECYSTITIS WITHOUT OBSTRUCTIONOT HER SPECIFIED ASTHMA 9 No Information DETAILED OUT/PT [facility], [address] [place] [address], [address], [place] tel:[phone] [facility] Adult [facility] No Information 9 No Information [facility], [address] [place] [address], [address], [place] tel:[phone] Conversion ACUTE PAINACUTE CHOLECYSTITIS 9 No Information DETAILED OUT/PT [facility], [address] [place] [address], [address], [place] tel:[phone] [facility] Adult [facility] No Information 9 No Information [facility], [address] [place] [address], [address], [place] tel:[phone] Conversion UNSPECIFIED ESSENTIAL HYPERTENSIONP REMENOPAUSAL MENORRHAGIA 9 No Information DETAILED OUT/PT [facility], [address] [place] [address], [address], [place] tel:[phone] [facility] Adult [facility] No Information 9 No Information [facility], [address] [place] [address], [address], [place] tel:[phone] [facility] No Information 0 8 No Information [facility], [address] [place] [address], [address], [place] tel:[phone] Conversion ESOPHAGEAL REFLUX 8 No Information DETAILED OUT/PT [facility], [address] [place] [address], [address], [place] tel:[phone] [facility] Adult [facility] No Information 200 8 No Information [facility], [address] [place] [address], [address], [place] tel:[phone] [facility] No Information Sep-0 9200 8 No Information MINIMAL OUT/PT [facility], [address] [place] [address], [address], [place] tel:[phone] [facility] Adult [facility] No Information Sep-0 2200 8 No Information PREVENTIVE COUNSELING, INDIV [facility], [address] [place] [address], [facility] [place], [place] tel:[phone] [facility] No Information Aug-0 4-200 8 No Information [facility], [address] [place], [address], [place] tel:[phone] [facility] No Information Nov-1 4-200 8 No Information [facility], [address] [place] [address], [address], [place] tel:[phone] [facility] No Information Nov-0 8-200 8 No Information [facility], [address] [place], [address], [place] tel:[phone] [facility] No Information Vasyl-2 3-200 8 No Information MINIMAL OUT/PT [facility], [address] [place] [address], [address], [place] tel:[phone] [facility] No Information Vasyl-1 8-200 8 No Information EXPANDED OUT/PT [facility], [address] [place] [address], [facility] [place], [place] tel:[phone] [facility] Adult [facility] No Information Vasyl-0 7-200 8 No Information [facility], [address] [place] [address], [address], [place] tel:[phone] [facility] No Information September-2 2-200 8 No Information MINIMAL OUT/PT [facility], [address] [place] [address], [address], [place] tel:[phone] [facility] No Information September-1 3-200 8 No Information DETAILED OUT/PT [facility], [address] [place] [address], [address], [place] tel:[phone] [facility] No Information September-1 2-200 8 No Information [facility], [address] [place] [address], [address], [place] tel:[phone] [facility] No Information May-0 6-200 8 No Information [facility], [address] [place] [address], [address], [place] tel:[phone] Conversion UNSPECIFIED DRUG DEPENDENCE UNSPECIFIED USE May-0 6-200 8 No Information [facility], [address] [place] [address], [address], [place] tel:[phone] Conversion DIZZINESS AND GIDDINESSANEM IA UNSPECIFIED September-0 5-200 8 No Information DETAILED OUT/PT [facility], [address] [place] [address], [address], [place] tel:[phone] [facility] No Information May-0 5-200 8 No Information [facility], [address] [place] [address], [address], [place] tel:[phone] [facility] No Information Apr-2 9-200 8 No Information [facility], [address] [place] [address], [address], [place] tel:[phone] Conversion COMBINATIONS OF DRUG DEPENDENCE EXCLUDING OPIOID TYPE DRUG UNSPECIFIED USE Apr-2 9-200 8 No Information [facility], [address] [place] [address], [address], [place] tel:[phone] Conversion ROUTINE GYNECOLOGICAL EXAMINATION Apr-2 4-200 8 No Information WELL EXAM 40-64 [facility], [address] [place] [address], [address], [place] tel:[phone] [facility] No Information Apr-2 4-200 8 No Information [facility], [address] [place] [address], [address], [place] tel:[phone] [facility] No Information Apr-2 4-200 8 No Information PREVENTIVE COUNSELING, INDIV [facility], [address] [place] [address], [address], [place] tel:[phone] [facility] No Information Apr-2 2-200 8 No Information [facility], [address] [place] [address], [address], [place] tel:[phone] [facility] No Information Apr-0 8-200 8 No Information [facility], [address] [place] [address], [address], [place] tel:[phone] [facility] No Information Apr-0 3-200 8 No Information DETAILED OUT/PT [facility], [address] [place] [address], [address], [place] tel:[phone] [facility] No Information Apr-0 2-200 8 No Information [facility], [address] [place] [address], [facility] [place], [place] tel:[phone] [facility] No Information Jul-2 0-200 8 No Information [facility], [address] [place] [address], [address], [place] tel:[phone] [facility] No Information Jul- 3-200 8 No Information [facility], [address] [place] [address], [address], [place] tel:[phone] Conversion MAJOR DEPRESSIVE AFFECTIVE DISORDER RECURRENT EPISODE MODERATE DEGREE Feb-2 8-200 8 No Information [facility], [address] [place] [address], [address], [place] tel:[phone] [facility] No Information Feb-2 8200 8 No Information DETAILED OUT/PT [facility], [address] [place] [address], [facility] [place], [place] tel:[phone] [facility] No Information Feb-2 7200 8 No Information [facility], [address] [place] [address], [facility] [place], [place] tel:[phone] [facility] No Information Jun-2 1200 8 No Information MINIMAL OUT/PT [facility], [address] [place] [address], [address], [place] tel:[phone] [facility] No Information b-1 8200 8 No Information [facility], [address] [place] [address], [address], [place] tel:[phone] Conversion COCAINE DEPENDENCEMAJ OR DEPRESSION, RECURRENT Feb-0 7200 8 No Information [facility], [address] [place] [address], [address], [place] tel:[phone] [facility] No Information Feb-0 7200 8 No Information [facility], [address] [place] [address], [address], [place] tel:[phone] Conversion FLU SHOTROUTINE GENERAL MEDICAL EXAMINATION 0200 8 No Information DETAILED OUT/PT [facility], [address] [place] [address], [address], [place] tel:[phone] [facility] Adult [facility] No Information 0 8 No Information DETAILED OUT/PT [facility], [address] [place] [address], [address], [place] tel:[phone] [facility] Adult [facility] No Information 8 No Information [facility], [address] [place] [address], [address], [place] tel:[phone] Conversion ENCOUNTERS FOR UNSPECIFIED ADMINISTRATIV E PURPOSE 8 No Information FOCUSED OUT/PT [facility], [address] [place] [address], [address], [place] tel:[phone] [facility] Adult Medicine No Information 8 No Information EXPANDED OUT/PT [facility], [address] [place] [address], [address], [place] tel:[phone] [facility] Adult [facility] No Information 8 No Information [facility], [address] [place] [address], [address], [place] tel:[phone] Conversion SYMPTOMATIC MENOPAUSAL OR FEMALE CLIMACTERIC STATESUNSPECI FIED VIRAL HEPATITIS CSCREENING EXAMINATION FOR PULMONARY TUBERCULOSIS 8 No Information [facility], [address] [place] [address], [address], [place] tel:[phone] Conversion ALCOHOL DEPENDENCEOPI OID DEPENDENCEDEP RESSIVE DISORDER, NOT ELSEWHERE CLASSIFIED 8 No Information [facility], [address] [place] [address], [address], [place] tel:[phone] [facility] No Information 8 No Information FOCUSED OUT/PT [facility], [address] [place] [address], [address], [place] tel:[phone] [facility] Adult [facility] No Information 7 No Information DETAILED OUT/PT [facility], [address] [place] [address], [address], [place] tel:[phone] [facility] No Information 7 No Information [facility], [address] [place] [address], [id number], [place] tel:[phone] Conversion BRONCHITIS, ACUTE 7 No Information DETAILED OUT[facility], [address] [place] [address], [address], [place] tel:[phone] [facility] Adult Medicine No Information 7 No Information DETAILED OUT/PT [facility], [address] [place] [address], [address], [place] tel:[phone] [facility] Adult Medicine No Information 7 No Information [facility], [address] [place] [address], [address], [place] tel:[phone] Conversion HYPOTHYROIDIS M, UNSPECIFIED AQUIREDHEPATI TIS C WITHOUT MENTION OF HEPATIC COMA 7 No Information EXPANDED OUT/PT [facility], [address] [place] [address], [address], [place] tel:[phone] [facility] Adult Medicine No Information No Information EXPANDED OUT/PT [facility], [address] [place] [address], [facility] [place], [place] tel:[phone] [facility] Adult Medicine No Information 7 No Information [facility], [address] [place] [address], [facility], [place] tel:[phone] Conversion SCREENING EXAMINATION FOR VENEREAL DISEASETORTIC OLLIS UNSPECIFIED 7 No Information NEW Level 3 - Detailed [facility], [address] [place] [address], [address], [place] tel:[phone] [facility] Adult Medicine No Information 7 No Information [facility], [address] [place] [address], [facility] [place], [place] tel:[phone] Conversion PNEUMONIA ORGANISM UNSPECIFIEDCO [facility] 7 No Information Family History Family Member Type Diagnosis Age At Onset No Information Immunizations Vaccine Date Status Comments FLU VACCINE ADULT (3+ YEARS) administered Source: New Immunization Record HEPATITIS B IMMUNIZATION administered Ladan rce: New Immunization Record Payers Payer name Insurance type Covered democrat ID Authoriza tion(s) No Information Social History [...]
--- OUTSIDE RECORDS SUMMARY | 2024-07-11 13:23 | XMS_ITS | Encounter Summary ---
Author Organization [facility], Address [address] [place] [address] Phone Care Team Providers Care Professor Of Marketing Name Role Phone Kait Martínez MD Primary Care Provider [phone] Encounter Details Date Type Department Care Team (Late st Contact Info) Description 06/28/2024 Documentation Only [facility] - [facility] [address] [place] [address] Aretha Elder [address] [place] [phone] Social History Tobacco Use Types Packs/Day Years Used Date Smoking Tobacco: Never Assessed Comments Unknown Sex and Gender Information Value Date Recorded Sex Assigned at Not on file Legal Sex Female 8:25 AM EDT Gender Identity Not on file Sexual Orientation Not on file documented as of this encounter Progress Notes * Aretha Elder - 06/28/2024 9:11 AM EST Spoke to [facility] regarding getting auth for 06/20 surgery. They said they don't initiate a second auth request for a second surgeon for the same surgery. The second surgeon would have to be put in thecomments of the initial auth request. Spoke to Indra at [facility] on 06/28/24 There was an auth for pennings and that # is [id number]. documented in this encounter Plan of Treatment Not on file documented as of this encounter Visit Diagnoses Not on filedocumented in this encounter Care Teams Professor Of Marketing Relationship Specialty Start Date End Date Kait Martínez MD [address] [place], [place] PCP - General Internal Medicine 05/31/24 documented as of this encounter
--- OUTSIDE RECORDS SUMMARY | 2024-07-11 13:23 | XMS_ITS | Clinical Summary ---
Author Organization [facility], Address [address] [place] [address] Phone Care Team Providers Care Data Warehouse Manager Name Role Phone Kait Martínez MD Primary Care Provider [phone] Allergies Active Allergy Reactions Criticality Noted Date Comments Penicillins Rash Low 12/30/2022 Medications FLUoxetine HCl (PROZAC PO) Take by mouth Acti ve hydrOXYzine (ATARAX) 25 MG tablet Take 25 mg by mouth 3 (three) times a day if needed for itching Active TRAZODONE HCL PO Take by mouth Active GABAPENTIN EX Apply topically Active METHOCARBAMOL PO Take by mouth Active Buprenorphine HCl-Naloxone HCl (SUBOXONE SL) Place under the tongue Active clonazePAM (KLONOPIN PO) Take by mouth Ac tive OMEPRAZOLE PO Take by mouth Ac tive Ibuprofen 200 MG capsule Take by mouth Activ e Active Problems Problem Noted Date Diagnosed Date Postlaminectomy syndrome 12/30/2022 Hypertension 12/30/2022 Pain of knee region 12/30/2022 Overview (12/30/2022): left Anxiety 12/30/2022 Posttraumatic stress disorder 12/30/2022 Otitis 12/30/2022 Epidermoid cyst 12/30/2022 Opioid abuse, in remission 12/30/2022 Disorder of retina of left eye 12/30/2022 Overview (12/30/2022): Bilateral Encounters Date Type Department Care Team Description 06/28/2024 Documentation Only [facility], - Vascular Access Center [address] [place] [address] Aretha Elder 06/07/2024 1:15 PM EST Office Visit [facility] Access Center [address] [place] [address] [place] [phone] Glenn Solis MD Degeneration of lumbar intervertebral disc <With lower extremity pain only> (Primary Dx) 06/06/2024 Telephone [facility] Vascular Access [address] [place] [phone] Dulce Aguirre from Last 3 Months Social History Tobacco Use Types Packs/Day Years Used Date Smoking Tobacco: Never Assessed Comments Unknown Sex and Gender Information Value Date Recorded Sex Assigned at Not on file Legal Sex Female 8:25 AM EDT Gender Identity Not on file Sexual Orientation Not on file Plan of Treatment Health Maintenance Due Date Last Done Comments Breast Cancer Screening 1960 Colorectal Cancer Screening: Annual FOBT 10/22/2008 Colorectal Cancer Screening: Colonoscopy 10/22/2008 Colorectal Cancer Screening: Sigmoidoscopy 10/22/2008 Influenza Vaccine (#1) 2024 Hepatitis B Vaccine Aged Out No longe r eligible based on patient's age to complete this topic Pneumococcal Vaccine: Pediat rics (0 to 5 Years) and At-Risk Patients (6 to 64 Years) Aged Out No longer eligible b ased on patient's age to complete this topic Insurance [facility] MEDICAID Care Teams Data Warehouse Manager Relationship Specialty Start Date End Date Kait Martínez MD [address] [place] [address] [address] [place] PCP - General Internal Medicine 05/31/24
== END 2024-07-11 13:20 | disposition home or self-care (01) ==
PROVIDERS: PCP Physician Assistant; Visit Provider Physician Assistant
DX: Z98.1 Arthrodesis status (principal)
CPT/HCPCS: 99024

== ENCOUNTER → 2024-07-11 12:31 | Outpatient (BNVA) | payer OTHER, SELFPAY | PROVIDERS: PCP Physician Assistant; Visit Provider Physician Assistant | DX: Z47.89 Encounter for other orthopedic aftercare (principal); Z98.1 Arthrodesis status | CPT/HCPCS: 99212 ==

== ENCOUNTER 2024-08-22 13:12 | Outpatient (REF) | payer OTHER, SELFPAY ==
--- NOTE | ~2024-08-22 | XR_ITS ---
EXAMINATION: X-RAY LUMBAR SPINE 4 VIEWS. CLINICAL INFORMATION: Arthrodesis status. TECHNIQUE: 4 views lumbar spine including flexion and extension. COMPARISON: April 13, 2024. FINDINGS: Anterior intervertebral body disc spacer at L5-S1, new. Intervertebral disc spacer at L4-5, stable. Multilevel marginal osteophyte formation and endplate sclerosis involving the lower thoracic spine and the upper lumbar spine. No acute cortical disruption or gross malalignment in the neutral nor flexion or extension positioning. No lytic or blastic lesions. Dextroconvex curvature of the thoracolumbar junction and levoconvex curvature apex at L3-4. Calcified plaques, vascular. XR/XR lumbar spine 4V min IMPRESSION: Multilevel lower thoracic and upper lumbar spondylosis without acute fracture or gross listhesis. No gross instability. New intervertebral body disc spacer placement at L5-S1. Electronically signed by: Kirk So MD 08/23/2024 09:29 AM EDT
--- OUTSIDE RECORDS SUMMARY | 2024-08-22 15:30 | XMS_ITS | Clinical Summary ---
Author Organization [facility], Address [address] [place] [address] Phone Care Team Providers Care Sparker And Patcher Name Role Phone Kait Martínez MD Primary Care Provider [phone] Allergies Active Allergy Reactions Criticality Noted Date [...] Only [facility], - Vascular Access Center [address] [place] [address] Aretha Elder 06/07/2024 1:15 PM EST Office Visit [facility] Vascular Access Center [address] [place] [address] [place] [phone] Glenn Solis MD Degeneration of lumbar intervertebral disc <With lower extremity pain only> (Primary Dx) 06/06/2024 Telephone [facility] Vascular Access [address] [place] [phone] Dulce Aguirre from Last 3 Months Social [...] patient's age to complete this topic Insurance [facility] MEDICAID Care Teams Sparker And Patcher Relationship Specialty Start Date End Date Kait Martínez MD [address] [place] [address] [address] [place] PCP - General Internal Medicine 05/31/24
--- OUTSIDE RECORDS SUMMARY | 2024-08-22 15:30 | XMS_ITS | Continuity of Care Document ---
Author Organization Formerly [facility] vices Address [address] [place] [address] Phone Care Team Providers Care Erp Consultant Name Role Phone Unavailable Unavailable Unavailable Allergies, [...] Diagnoses Date Provider Providers Copied on Encounter [facility], [address] [place] [address], [facility] [place], tel:[phone] [facility] No Information 1 No Information [facility], [address] [place] [address], [facility] [place], tel:[phone] Conversion AXIS V GLOBAL ASSESS OF FUNCTIONING (GAF) SCALE ___ (100-0) 1 No Information [facility], [address] [place] [address], [facility] [place], tel:[phone] Conversion No Information 1 No Information [facility], [address] [place] [address], [facility] [place], tel:[phone] Conversion No Information Feb-0 1-201 1 No Information [facility], [address] [place], [address], [place] tel:[phone] [facility] No Information Adin-0 5-201 1 No Information GROUP PS[facility]CHOTHERAPY [facility], [address] [place], [address], [place] tel:[phone] [facility] No Information Adin-0 3-201 1 No Information GROUP PSYCHOTHERAPY [facility], [address] [place], [address], [place] tel:[phone] [facility] No Information Dec-2 0-201 0 No Information [facility], [address] [place], [address], [place] tel:[phone] [facility] No Information Dec-1 5-201 0 No Information [facility], [address] [place] [address], [address], [place] tel:[phone] [facility] No Information Dec-1 5-201 0 No Information PSYCHOTHERAPY, GROUP [facility], [address] [place] [address], [address], [place] tel:[phone] [facility] No Information Dec-1 3-201 0 No Information [facility], [address] [place], [address], [place] tel:[phone] [facility] No Information Dec-0 7-201 0 No Information GROUP PSYCHOTHERAPY [facility], [address] [place] [address], [address], [place] tel:[phone] [facility] No Information Dec-0 6-201 0 No Information GROUP PSYCHOTHERAPY [facility], [address] [place] [address], [address], [place] tel:[phone] [facility] No Information Nov-2 9-201 0 No Information [facility], [address] [place] [address], [address], [place] tel:[phone] [facility] No Information Nov-2 4-201 0 No Information GROUP PSYCHOTHERAPY [facility], [address] [place] [address], [address], [place] tel:[phone] [facility] No Information Nov-2 2-201 0 No Information [facility], [address] [place], [address], [place] tel:[phone] [facility] No Information Nov-1 6-201 0 No Information GROUP PSYCHOTHERAPY [facility], [address] [place] [address], [facility] [place], [place] tel:[phone] [facility] No Information Nov-1 5-201 0 No Information [facility], [address] [place] [address], [facility] [place], [place] tel:[phone] [facility] No Information Nov-0 9-201 0 No Information GROUP PSYCHOTHERAPY [facility], [address] [place] [address], [address], [place] tel:[phone] [facility] No Information Nov-0 8-201 0 No Information [facility], [address] [place] [address], [facility] [place], [place] tel:[phone] [facility] No Information Nov-0 4-201 0 No Information GROUP PSYCHOTHERAPY [facility], [address] [place] [address], [facility] [place], [place] tel:[phone] [facility] No Information Nov-0 1-201 0 No Information [facility], [address] [place] [address], [address], [place] tel:[phone] [facility] No Information Feb-2 9 0 No Information [facility], [address] [place] [address], [address], [place] tel:[phone] [facility] No Information Feb-2 6- 0 No Information [facility], [address] [place] [address], [address], [place] tel:[phone] Historic Immunization Location No Information Feb-2 6-201 0 No Information DETAILED OUT/PT [facility], [address] [place] [address], [address], [place] tel:[phone] [facility] No Information Feb-2 6- 0 No Information [facility], [address] [place] [address], [address], [place] tel:[phone] Conversion No Information Feb-2 5-201 0 No Information [facility], [address] [place] [address], [address], [place] tel:[phone] [facility] No Information Oct-2 5-201 0 No Information [facility], [address] [place] [address], [address], [place] tel:[phone] [facility] No Information Oct-2 0-201 0 No Information [facility], [address] [place] [address], [facility] [place], [place] tel:[phone] Conversion No Information Oct-2 0-201 0 No Information [facility], [address] [place] [address], [facility] [place], [place] tel:[phone] [facility] No Information Sep-3 0-201 0 No Information [facility], [address] [place] [address], [address], [place] tel:[phone] Conversion ALCOHOL ABUSE Sep-3 0-201 0 No Information [facility], [address] [place] [address], [facility] [place], [place] tel:[phone] Conversion COUNSELING ON SUBSTANCE USE AND ABUSELACK OF PHYSICAL EXERCISE Sep-2 7-201 0 No Information [facility], [address] [place] [address], [facility] [place], [place] tel:[phone] [facility] No Information Sep-2 0-201 0 No Information [facility], [address] [place] [address], [address], [place] tel:[phone] Conversion No Information Sep-2 0-201 0 No Information [facility], [address] [place] [address], [facility] [place], [place] tel:[phone] [facility] No Information Sep-0 9-201 0 No Information [facility], [address] [place] [address], [address], [place] tel:[phone] Conversion NONDEPENDENT ABUSE OF DRUGS, OPIOID ABUSE, EPISODICANXIE TY STATE, UNSPECIFIEDHY POGLYCEMIA UNSPECIFIED, NON-DIABETIC Dec-2 4 0 No Information DETAILED OUT/PT [facility], [address] [place] [address], [address], [place] tel:[phone] [facility] No Information Dec-2 4 0 No Information [facility], [address] [place] [address], [address], [place] tel:[phone] Conversion No Information 0 No Information [facility], [address] [place], [address], [place] tel:[phone] [facility] No Information 0 No Information [facility], [address] [place] [address], [address], [place] tel:[phone] [facility] No Information 0 No Information [facility], [address] [place], [address], [place] tel:[phone] [facility] No Information 0 No Information [facility], [address] [place] [address], [address], [place] tel:[phone] [facility] No Information 0 No Information [facility], [address] [place] [address], [address], [place] tel:[phone] Conversion REFLUX ESOPHAGITISFA TIGUE/MALAISE NONDEPENDENT ABUSE OF DRUGS, OPIOID ABUSE, IN REMISSION 0 No Information DETAILED OUT/PT [facility], [address] [place], [address], [place] tel:[phone] [facility] No Information 0 No Information [facility], [address] [place] [address], [address], [place] tel:[phone] Conversion 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 0 No Information [facility], [address] [place] [address], [address], [place] tel:[phone] [facility] No Information 0 No Information [facility], [address] [place] [address], [address], [place] tel:[phone] [facility] No Information 0 No Information [facility], [address] [place] [address], [address], [place] tel:[phone] [facility] No Information 0 No Information [facility], [address] [place] [address], [address], [place] tel:[phone] [facility] No Information 0 No Information [facility], [address] [place] [address], [address], [place] tel:[phone] Conversion COCAINE DEPENDENCE, EPISODICOSTEO ARTHROSIS, GENERALIZED, SITE UNSPECIFIED 8 0 No Information [facility], [address] [place] [address], [address], [place] tel:[phone] [facility] No Information 0 No Information [facility], [address] [place] [address], [facility] [place], [place] tel:[phone] Conversion HUMAN IMMUNODEFICIE NCY VIRUS [HIV] DISEASE 0 No Information DETAILED OUT/PT [facility], [address] [place] [address], [facility] [place], [place] tel:[phone] [facility] No Information 9 No Information [facility], [address] [place] [address], [facility] [place], [place] tel:[phone] Conversion HEPATITIS C (CHRONIC)DELGADO ETT'S ESOPHAGUSOTHE R AND UNSPECIFIED ALCOHOL DEPENDENCE, IN REMISSION 9 No Information DETAILED OUT/PT [facility], [address] [place] [address], [address], [place] tel:[phone] [facility] No Information 9 No Information [facility], [address] [place] [address], [facility] [place], [place] tel:[phone] Conversion INSOMNIA, UNSPECIFIEDOT HER CHRONIC PAIN 9 No Information [facility], [address] [place] [address], [address], [place] tel:[phone] Conversion CHOLELITHIASI SESOPHAGITIS UNSPECIFIEDMO TTLED TEETHNONDEPEN DENT OTHER MIXED OR UNSPECIFIED DRUG ABUSE IN REMISSION 9 No Information DETAILED OUT/PT [facility], [address] [place] [address], [facility] [place], [place] tel:[phone] [facility] No Information 9 No Information [facility], [address] [place] [address], [facility] [place], [place] tel:[phone] Conversion HEARTBURNCALC ULUS OF GALLBLADDER WITH OTHER CHOLECYSTITIS WITHOUT OBSTRUCTIONOT HER SPECIFIED ASTHMA 9 No Information DETAILED OUT/PT [facility], [address] [place] [address], [address], [place] tel:[phone] [facility] No Information 9 No Information [facility], [address] [place] [address], [address], [place] tel:[phone] Conversion ACUTE PAINACUTE CHOLECYSTITIS 9 No Information DETAILED OUT/PT [facility], [address] [place] [address], [address], [place] tel:[phone] [facility] No Information 9 No Information [facility], [address] [place] [address], [address], [place] tel:[phone] Conversion UNSPECIFIED ESSENTIAL HYPERTENSIONP REMENOPAUSAL MENORRHAGIA 9 No Information DETAILED OUT/PT [facility], [address] [place] [address], [address], [place] tel:[phone] [facility] No Information 9 No Information [facility], [address] [place] [address], [address], [place] tel:[phone] [facility] No Information 0 8 No Information [facility], [address] [place] [address], [address], [place] tel:[phone] Conversion ESOPHAGEAL REFLUX 8 No Information DETAILED OUT/PT [facility], [address] [place] [address], [address], [place] tel:[phone] [facility] No Information 200 8 No Information [facility], [address] [place] [address], [address], [place] tel:[phone] [facility] No Information Sep-0 9200 8 No Information MINIMAL OUT/PT [facility], [address] [place] [address], [address], [place] tel:[phone] [facility] No Information Sep-0 2200 8 No Information PREVENTIVE COUNSELING, INDIV [facility], [address] [place] [address], [facility] [place], [place] tel:[phone] [facility] No Information Aug-0 4-200 8 No Information [facility], [address] [place], [address], [place] tel:[phone] [facility] No Information Nov-1 4-200 8 No Information [facility], [address] [place] [address], [address], [place] tel:[phone] [facility] No Information Nov-0 8-200 8 No Information [facility], [address] [place], [address], [place] tel:[phone] [facility] No Information Vasyl-2 3-200 8 No Information MINIMAL OUT/PT [facility], [address] [place] [address], [address], [place] tel:[phone] [facility] No Information Vasyl-1 8-200 8 No Information EXPANDED OUT/PT [facility], [address] [place] [address], [facility] [place], [place] tel:[phone] [facility] No Information Vasyl-0 7-200 8 No Information [facility], [address] [place] [address], [address], [place] tel:[phone] [facility] No Information September-2 2-200 8 No Information MINIMAL OUT/PT [facility], [address] [place] [address], [address], [place] tel:[phone] [facility] No Information September-1 3-200 8 No Information DETAILED OUT/PT [facility], [address] [place] [address], [address], [place] tel:[phone] [facility] No Information September-1 2-200 8 No Information [facility], [address] [place] [address], [address], [place] tel:[phone] [facility] No Information May-0 6-200 8 No Information [facility], [address] [place] [address], [address], [place] tel:[phone] Conversion UNSPECIFIED DRUG DEPENDENCE UNSPECIFIED USE May-0 6-200 8 No Information [facility], [address] [place] [address], [address], [place] tel:[phone] Conversion DIZZINESS AND GIDDINESSANEM IA UNSPECIFIED September-0 5-200 8 No Information DETAILED OUT/PT [facility], [address] [place] [address], [address], [place] tel:[phone] [facility] No Information May-0 5-200 8 No Information [facility], [address] [place] [address], [address], [place] tel:[phone] [facility] No Information Apr-2 9-200 8 No Information [facility], [address] [place] [address], [address], [place] tel:[phone] Conversion COMBINATIONS OF DRUG DEPENDENCE EXCLUDING OPIOID TYPE DRUG UNSPECIFIED USE Apr-2 9-200 8 No Information [facility], [address] [place] [address], [address], [place] tel:[phone] Conversion ROUTINE GYNECOLOGICAL EXAMINATION Apr-2 4-200 8 No Information WELL EXAM 40-64 [facility], [address] [place] [address], [address], [place] tel:[phone] [facility] No Information Apr-2 4-200 8 No Information [facility], [address] [place] [address], [address], [place] tel:[phone] [facility] No Information Apr-2 4-200 8 No Information PREVENTIVE COUNSELING, INDIV [facility], [address] [place] [address], [address], [place] tel:[phone] [facility] No Information Apr-2 2-200 8 No Information [facility], [address] [place] [address], [address], [place] tel:[phone] [facility] No Information Apr-0 8-200 8 No Information [facility], [address] [place] [address], [address], [place] tel:[phone] [facility] No Information Apr-0 3-200 8 No Information DETAILED OUT/PT [facility], [address] [place] [address], [address], [place] tel:[phone] [facility] No Information Apr-0 2-200 8 No Information [facility], [address] [place] [address], [facility] [place], [place] tel:[phone] [facility] No Information Jul-2 0-200 8 No Information [facility], [address] [place] [address], [address], [place] tel:[phone] [facility] No Information Jul- 3-200 8 No Information [facility], [address] [place] [address], [address], [place] tel:[phone] Conversion MAJOR DEPRESSIVE AFFECTIVE DISORDER RECURRENT EPISODE MODERATE DEGREE Feb-2 8-200 8 No Information [facility], [address] [place] [address], [address], [place] tel:[phone] [facility] No Information Feb-2 8200 8 No Information DETAILED OUT/PT [facility], [address] [place] [address], [facility] [place], [place] tel:[phone] [facility] No Information Feb-2 7200 8 No Information [facility], [address] [place] [address], [facility] [place], [place] tel:[phone] [facility] No Information Jun-2 1200 8 No Information MINIMAL OUT/PT [facility], [address] [place] [address], [address], [place] tel:[phone] [facility] No Information b-1 8200 8 No Information [facility], [address] [place] [address], [address], [place] tel:[phone] Conversion COCAINE DEPENDENCEMAJ OR DEPRESSION, RECURRENT Feb-0 7200 8 No Information [facility], [address] [place] [address], [address], [place] tel:[phone] [facility] No Information Feb-0 7200 8 No Information [facility], [address] [place] [address], [address], [place] tel:[phone] Conversion FLU SHOTROUTINE GENERAL MEDICAL EXAMINATION 0200 8 No Information DETAILED OUT/PT [facility], [address] [place] [address], [address], [place] tel:[phone] [facility] No Information 0 8 No Information DETAILED OUT/PT [facility], [address] [place] [address], [address], [place] tel:[phone] [facility] No Information 8 No Information [facility], [address] [place] [address], [address], [place] tel:[phone] Conversion ENCOUNTERS FOR UNSPECIFIED ADMINISTRATIV E PURPOSE 8 No Information FOCUSED OUT/PT [facility], [address] [place] [address], [address], [place] tel:[phone] [facility] No Information 8 No Information EXPANDED OUT/PT [facility], [address] [place] [address], [address], [place] tel:[phone] [facility] No Information 8 No Information [facility], [address] [place] [address], [address], [place] tel:[phone] Conversion SYMPTOMATIC MENOPAUSAL OR FEMALE CLIMACTERIC STATESUNSPECI FIED VIRAL HEPATITIS CSCREENING EXAMINATION FOR PULMONARY TUBERCULOSIS 8 No Information [facility], [address] [place] [address], [address], [place] tel:[phone] Conversion ALCOHOL DEPENDENCEOPI OID DEPENDENCEDEP RESSIVE DISORDER, NOT ELSEWHERE CLASSIFIED 8 No Information [facility], [address] [place] [address], [address], [place] tel:[phone] [facility] No Information 8 No Information FOCUSED OUT/PT [facility], [address] [place] [address], [address], [place] tel:[phone] [facility] No Information 7 No Information DETAILED OUT/PT [facility], [address] [place] [address], [address], [place] tel:[phone] [facility] No Information 7 No Information [facility], [address] [place] [address], [id number], [place] tel:[phone] Conversion BRONCHITIS, ACUTE 7 No Information DETAILED OUT/PT [facility], [address] [place] [address], [id number], [place] tel:[phone] [facility] Adult Medicine No Information 7 No Information DETAILED OUT/PT [facility], [address] [place] [address], [address], [place] tel:[phone] [facility] Adult Medicine No Information 7 No Information [facility], [address] [place] [address], [address], [place] tel:[phone] Conversion HYPOTHYROIDIS M, UNSPECIFIED AQUIREDHEPATI TIS C WITHOUT MENTION OF HEPATIC COMA 7 No Information EXPANDED OUT/PT [facility], [address] [place] [address], [address], [place] tel:[phone] [facility] Adult Medicine No Information No Information EXPANDED OUT/PT [facility], [address] [place] [address], [facility] [place] tel:[phone] [facility] Adult Medicine No Information 7 No Information [facility], [address] [place] [address], [facility] [place] tel:[phone] Conversion SCREENING EXAMINATION FOR VENEREAL DISEASETORTIC OLLIS UNSPECIFIED 7 No Information NEW Level 3 - Detailed [facility], [address] [place] [address], [address], [place] tel:[phone] [facility] Adult Medicine No Information 7 No Information [facility], [address] [place] [address], [facility] [place] tel:[phone] Conversion PNEUMONIA ORGANISM UNSPECIFIEDCO [facility] 7 No [...]
== END 2024-08-22 13:13 | disposition home or self-care (01) ==
LOC: HO.HOSX 13:12
PROVIDERS: Visit Provider Physician Assistant
DX: Z98.1 Arthrodesis status (principal)
CPT/HCPCS: 72110; 99212

== ENCOUNTER 2024-08-22 13:36 | Outpatient (AMB) | payer OTHER, SELFPAY ==
--- NOTE | 2024-08-22 13:42 | A.SPINEOV_ITS ---
Intake Visit Reasons: 2nd post op with xrays Intake Note: Mrs. Thomas is here today for her 2nd post op with xrays. Hr Business Partner Consultant Required: No Allergies Penicillins [PENICILLINS] Allergy (Intermediate, Verified 08/22/24 14:00) RASH (CHILDHOOD ALLERGY) Assessment & Plan Assessment & Plan (1) S/P spinal fusion: Code(s): Z98.1 - Arthrodesis status Category: Surgical Plan Procedure: L5-S1 NOE Aparicio comes in today for her 2nd postoperative visit. To recap during her last visit she reported good resolution of her pre-operative symptoms, but did continue to report some mild low back pain and newer R knee pain. She states that unfortunately her fibromyalgia has flared up recently so she has been in quite a bit of pain (neck , back, extremities). Other than that she continues to heal as expected. She is completing the majority of her ADLs without issue, and overall feels very well. No new neurological deficits. The patient ambulates well and rises from seated position without difficulty. Her anterior incision site is closed and well healed. I would like to obtain a CT scan 10 months out from surgery to evaluate for fusion progress. I would like to follow up with the patient 1 year out from surgery. Dilshad Briones MD,PhD [facility] Orders: Orders XR lumbar spine 4V min Today Z98.1 - Arthrodesis status CT lumbar spine wo IV con 04/20/25 Z98.1 - Arthrodesis status Coding Level of Care Code Global (67306) Diagnoses S/P spinal fusion Z98.1
--- OUTSIDE RECORDS SUMMARY | 2024-08-22 16:11 | XMS_ITS | Clinical Summary ---
Author Organization [facility], Address [address] [place] [address] Phone Care Team Providers Care Intervention Teacher Name Role Phone Kait Martínez MD Primary Care Provider [phone] Allergies Active Allergy Reactions Criticality Noted Date [...] Only [facility], - Vascular Access Center [address] [place] [address] Aretha Elder 06/07/2024 1:15 PM EST Office Visit [facility] [address] [place] [address] [place] [id number] Glenn Solis MD Degeneration of lumbar intervertebral disc <With lower extremity pain only> (Primary Dx) 06/06/2024 Telephone [facility] V[facility] Access [address] [place] [id number] Dulce Aguirre from Last 3 Months Social [...] patient's age to complete this topic Insurance [facility] MEDICAID Care Teams Intervention Teacher Relationship Specialty Start Date End Date Kait Martínez MD [address] [place] [address] [address] [place] PCP - General Internal Medicine 05/31/24
--- OUTSIDE RECORDS SUMMARY | 2024-08-22 16:11 | XMS_ITS | Continuity of Care Document ---
Author Organization [facility] vices Address [address] [place] [address] Phone Care Team Providers Care Deliverer Pharmacy Name Role Phone Unavailable Unavailable Unavailable Allergies, [...] Diagnoses Date Provider Providers Copied on Encounter [facility], [address] [place] [address], [facility], tel:[phone] [facility] Behavioral Health No Information 1 No Information [facility], [address] [place] [address], [facility], tel:[phone] Conversion AXIS V GLOBAL ASSESS OF FUNCTIONING (GAF) SCALE ___ (100-0) 1 No Information [facility], [address] [place] [address], [facility], tel:[phone] Conversion No Information 1 No Information [facility], [address] [place] [address], [facility], tel:[phone] Conversion No Information Feb-0 1-201 1 No Information [facility], [address] [place], [address], [place] tel:[phone] [facility] Behavioral Health No Information Adin-0 5-201 1 No Information GROUP PSYCHOTHERAPY [facility], [address] [place], [address], [place] tel:[phone] [facility] Behavioral Health No Information Adin-0 3-201 1 No Information GROUP PSYCHOTHERAPY [facility], [address] [place], [address], [place] tel:[phone] [facility] Behavior[facility] No Information Dec-2 0-201 0 No Information [facility], [address] [place], [address], [place] tel:[phone] [facility] No Information Dec-1 5-201 0 No Information [facility], [address] [place] [address], [address], [place] tel:[phone] [facility] Behavioral Health No Information Dec-1 5-201 0 No Information PSYCHOTHERAPY, GROUP [facility], [address] [place] [address], [address], [place] tel:[phone] [facility] Behavioral Health No Information Dec-1 3-201 0 No Information [facility], [address] [place], [address], [place] tel:[phone] [facility] Behavioral [facility] No Information Dec-0 7-201 0 No Information GROUP PSYCHOTHERAPY [facility], [address] [place] [address], [address], [place] tel:[phone] [facility] Behavioral Health No Information Dec-0 6-201 0 No Information GROUP PSYCHOTHERAPY [facility], [address] [place] [address], [address], [place] tel:[phone] [facility] Behavior[facility] No Information Nov-2 9-201 0 No Information [facility], [address] [place] [address], [address], [place] tel:[phone] [facility] Behavioral Health No Information Nov-2 4-201 0 No Information GROUP PSYCHOTHERAPY [facility], [address] [place] [address], [address], [place] tel:[phone] [facility] Behavioral [facility] No Information Nov-2 2-201 0 No Information [facility], [address] [place], [address], [place] tel:[phone] [facility] Behavioral Health No Information Nov-1 6-201 0 No Information GROUP PSYCHOTHERAPY [facility], [address] [place] [address], [facility], [place] tel:[phone] [facility] Behavior[facility] No Information Nov-1 5-201 0 No Information [facility], [address] [place] [address], [facility], [place] tel:[phone] [facility] Behavioral [facility] No Information Nov-0 9-201 0 No Information GROUP PSYCHOTHERAPY [facility], [address] [place] [address], [address], [place] tel:[phone] [facility] Behavioral Health No Information Nov-0 8-201 0 No Information [facility], [address] [place] [address], [facility], [place] tel:[phone] [facility] Behavioral Health No Information Nov-0 4-201 0 No Information GROUP PSYCHOTHERAPY [facility], [address] [place] [address], [facility], [place] tel:[phone] [facility] Behavior[facility] Health No Information Nov-0 1-201 0 No Information [facility], [address] [place] [address], [address], [place] tel:[phone] [facility] Behavioral [facility] No Information Feb-2 9 0 No Information [facility], [address] [place] [address], [address], [place] tel:[phone] [facility] Behavioral [facility] No Information Feb-2 6- 0 No Information [facility], [address] [place] [address], [address], [place] tel:[phone] Historic Immunization Location No Information Feb-2 6-201 0 No Information DETAILED OUT/PT [facility], [address] [place] [address], [address], [place] tel:[phone] [facility] Adult Medicine No Information Feb-2 6- 0 No Information [facility], [address] [place] [address], [address], [place] tel:[phone] Conversion No Information Feb-2 5-201 0 No Information [facility], [address] [place] [address], [address], [place] tel:[phone] [facility] Behavior[facility] Health No Information Oct-2 5-201 0 No Information [facility], [address] [place] [address], [address], [place] tel:[phone] [facility] Behavioral Health No Information Oct-2 0-201 0 No Information [facility], [address] [place] [address], [facility], [place] tel:[phone] Conversion No Information Oct-2 0-201 0 No Information [facility], [address] [place] [address], [facility], [place] tel:[phone] [facility] Behavioral Health No Information Sep-3 0-201 0 No Information [facility], [address] [place] [address], [address], [place] tel:[phone] Conversion ALCOHOL ABUSE Sep-3 0-201 0 No Information [facility], [address] [place] [address], [facility], [place] tel:[phone] Conversion COUNSELING ON SUBSTANCE USE AND ABUSELACK OF PHYSICAL EXERCISE Sep-2 7-201 0 No Information [facility], [address] [place] [address], [facility], [place] tel:[phone] [facility] Behavioral Health No Information Sep-2 0-201 0 No Information [facility], [address] [place] [address], [address], [place] tel:[phone] Conversion No Information Sep-2 0-201 0 No Information [facility], [address] [place] [address], [facility], [place] tel:[phone] [facility] Behavior[facility] No Information Sep-0 9-201 0 No Information [facility], [address] [place] [address], [address], [place] tel:[phone] Conversion NONDEPENDENT ABUSE OF DRUGS, OPIOID ABUSE, EPISODICANXIE TY STATE, UNSPECIFIEDHY POGLYCEMIA UNSPECIFIED, NON-DIABETIC Dec-2 4 0 No Information DETAILED OUT/PT [facility], [address] [place] [address], [address], [place] tel:[phone] [facility] Adult Medicine No Information Dec-2 4 0 No Information [facility], [address] [place] [address], [address], [place] tel:[phone] Conversion No Information 0 No Information [facility], [address] [place], [address], [place] tel:[phone] [facility] Behavioral Health No Information 0 No Information [facility], [address] [place] [address], [address], [place] tel:[phone] [facility] Behavioral Health No Information 0 No Information [facility], [address] [place], [address], [place] tel:[phone] [facility] Behavior[facility] Health No Information 0 No Information [facility], [address] [place] [address], [address], [place] tel:[phone] [facility] Behavior[facility] Health No Information 0 No Information [facility], [address] [place] [address], [address], [place] tel:[phone] Conversion REFLUX ESOPHAGITISFA TIGUE/MALAISE NONDEPENDENT ABUSE OF DRUGS, OPIOID ABUSE, IN REMISSION 0 No Information DETAILED OUT/PT [facility], [address] [place], [address], [place] tel:[phone] [facility] Adult Medicine No Information 0 No Information [facility], [address] [place] [address], [address], [place] tel:[phone] Conversion 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 0 No Information [facility], [address] [place] [address], [address], [place] tel:[phone] [facility] Behavior[facility] Health No Information 0 No Information [facility], [address] [place] [address], [address], [place] tel:[phone] [facility] Behavior[facility] No Information 0 No Information [facility], [address] [place] [address], [address], [place] tel:[phone] [facility] Behavior[facility] Health No Information 0 No Information [facility], [address] [place] [address], [address], [place] tel:[phone] [facility] Behavioral Health No Information 0 No Information [facility], [address] [place] [address], [address], [place] tel:[phone] Conversion COCAINE DEPENDENCE, EPISODICOSTEO ARTHROSIS, GENERALIZED, SITE UNSPECIFIED 8 0 No Information [facility], [address] [place] [address], [address], [place] tel:[phone] [facility] Adult Medicine No Information 0 No Information [facility], [address] [place] [address], [facility], [place] tel:[phone] Conversion HUMAN IMMUNODEFICIE NCY VIRUS [HIV] DISEASE 0 No Information DETAILED OUT/PT [facility], [address] [place] [address], [facility], [place] tel:[phone] [facility] Adult Medicine No Information 9 No Information [facility], [address] [place] [address], [facility], [place] tel:[phone] Conversion HEPATITIS C (CHRONIC)DELGADO ETT'S ESOPHAGUSOTHE R AND UNSPECIFIED ALCOHOL DEPENDENCE, IN REMISSION 9 No Information DETAILED OUT/PT [facility], [address] [place] [address], [address], [place] tel:[phone] [facility] Adult Medicine No Information 9 No Information [facility], [address] [place] [address], [facility], [place] tel:[phone] Conversion INSOMNIA, UNSPECIFIEDOT HER CHRONIC PAIN 9 No Information [facility], [address] [place] [address], [address], [place] tel:[phone] Conversion CHOLELITHIASI SESOPHAGITIS UNSPECIFIEDMO TTLED TEETHNONDEPEN DENT OTHER MIXED OR UNSPECIFIED DRUG ABUSE IN REMISSION 9 No Information DETAILED OUT/PT [facility], [address] [place] [address], [facility], [place] tel:[phone] [facility] Adult Medicine No Information 9 No Information [facility], [address] [place] [address], [facility], [place] tel:[phone] Conversion HEARTBURNCALC ULUS OF GALLBLADDER WITH OTHER CHOLECYSTITIS WITHOUT OBSTRUCTIONOT HER SPECIFIED ASTHMA 9 No Information DETAILED OUT/PT [facility], [address] [place] [address], [address], [place] tel:[phone] [facility] Adult Medicine No Information 9 No Information [facility], [address] [place] [address], [address], [place] tel:[phone] Conversion ACUTE PAINACUTE CHOLECYSTITIS 9 No Information DETAILED OUT/PT [facility], [address] [place] [address], [address], [place] tel:[phone] [facility] Adult Medicine No Information 9 No Information [facility], [address] [place] [address], [address], [place] tel:[phone] Conversion UNSPECIFIED ESSENTIAL HYPERTENSIONP REMENOPAUSAL MENORRHAGIA 9 No Information DETAILED OUT/PT [facility], [address] [place] [address], [address], [place] tel:[phone] [facility] Adult Medicine No Information 9 No Information [facility], [address] [place] [address], [address], [place] tel:[phone] [facility] Behavior[facility] Health No Information 0 8 No Information [facility], [address] [place] [address], [address], [place] tel:[phone] Conversion ESOPHAGEAL REFLUX 8 No Information DETAILED OUT/PT [facility], [address] [place] [address], [address], [place] tel:[phone] [facility] Adult Medicine No Information 200 8 No Information [facility], [address] [place] [address], [address], [place] tel:[phone] [facility] Behavior[facility] No Information Sep-0 9200 8 No Information MINIMAL OUT/PT [facility], [address] [place] [address], [address], [place] tel:[phone] [facility] Adult Medicine No Information Sep-0 2200 8 No Information PREVENTIVE COUNSELING, INDIV [facility], [address] [place] [address], [facility], [place] tel:[phone] [facility] Adult Medicine No Information Aug-0 4-200 8 No Information [facility], [address] [place], [address], [place] tel:[phone] [facility] Adult Medicine No Information Nov-1 4-200 8 No Information [facility], [address] [place] [address], [address], [place] tel:[phone] [facility] Behavior[facility] No Information Nov-0 8-200 8 No Information [facility], [address] [place], [address], [place] tel:[phone] [facility] Behavior[facility] Health No Information Vasyl-2 3-200 8 No Information MINIMAL OUT/PT [facility], [address] [place] [address], [address], [place] tel:[phone] [facility] Adult Medicine No Information Vasyl-1 8-200 8 No Information EXPANDED OUT/PT [facility], [address] [place] [address], [facility], [place] tel:[phone] [facility] Adult Medicine No Information Vasyl-0 7-200 8 No Information [facility], [address] [place] [address], [address], [place] tel:[phone] [facility] Behavioral Health No Information September-2 2-200 8 No Information MINIMAL OUT/PT [facility], [address] [place] [address], [address], [place] tel:[phone] [facility] Adult Medicine No Information September-1 3-200 8 No Information DETAILED OUT/PT [facility], [address] [place] [address], [address], [place] tel:[phone] [facility] Adult Medicine No Information September-1 2-200 8 No Information [facility], [address] [place] [address], [address], [place] tel:[phone] [facility] Behavior[facility] No Information May-0 6-200 8 No Information [facility], [address] [place] [address], [address], [place] tel:[phone] Conversion UNSPECIFIED DRUG DEPENDENCE UNSPECIFIED USE May-0 6-200 8 No Information [facility], [address] [place] [address], [address], [place] tel:[phone] Conversion DIZZINESS AND GIDDINESSANEM IA UNSPECIFIED September-0 5-200 8 No Information DETAILED OUT/PT [facility], [address] [place] [address], [address], [place] tel:[phone] [facility] Adult Medicine No Information May-0 5-200 8 No Information [facility], [address] [place] [address], [address], [place] tel:[phone] [facility] Behavior[facility] No Information Apr-2 9-200 8 No Information [facility], [address] [place] [address], [address], [place] tel:[phone] Conversion COMBINATIONS OF DRUG DEPENDENCE EXCLUDING OPIOID TYPE DRUG UNSPECIFIED USE Apr-2 9-200 8 No Information [facility], [address] [place] [address], [address], [place] tel:[phone] Conversion ROUTINE GYNECOLOGICAL EXAMINATION Apr-2 4-200 8 No Information WELL EXAM 40-64 [facility], [address] [place] [address], [address], [place] tel:[phone] [facility] No Information Apr-2 4-200 8 No Information [facility], [address] [place] [address], [address], [place] tel:[phone] [facility] Behavioral Health No Information Apr-2 4-200 8 No Information PREVENTIVE COUNSELING, INDIV [facility], [address] [place] [address], [address], [place] tel:[phone] [facility] Adult Medicine No Information Apr-2 2-200 8 No Information [facility], [address] [place] [address], [address], [place] tel:[phone] [facility] Behavior[facility] No Information Apr-0 8-200 8 No Information [facility], [address] [place] [address], [address], [place] tel:[phone] [facility] Behavior[facility] No Information Apr-0 3-200 8 No Information DETAILED OUT/PT [facility], [address] [place] [address], [address], [place] tel:[phone] [facility] Adult Medicine No Information Apr-0 2-200 8 No Information [facility], [address] [place] [address], [facility], [place] tel:[phone] [facility] No Information Jul-2 0-200 8 No Information [facility], [address] [place] [address], [address], [place] tel:[phone] [facility] Behavior[facility] No Information Jul- 3-200 8 No Information [facility], [address] [place] [address], [address], [place] tel:[phone] Conversion MAJOR DEPRESSIVE AFFECTIVE DISORDER RECURRENT EPISODE MODERATE DEGREE Feb-2 8-200 8 No Information [facility], [address] [place] [address], [address], [place] tel:[phone] [facility] No Information Feb-2 8200 8 No Information DETAILED OUT/PT [facility], [address] [place] [address], [facility], [place] tel:[phone] [facility] Adult Medicine No Information Feb-2 7200 8 No Information [facility], [address] [place] [address], [facility], [place] tel:[phone] [facility] No Information Jun-2 1200 8 No Information MINIMAL OUT/PT [facility], [address] [place] [address], [address], [place] tel:[phone] [facility] Adult Medicine No Information b-1 8200 8 No Information [facility], [address] [place] [address], [address], [place] tel:[phone] Conversion COCAINE DEPENDENCEMAJ OR DEPRESSION, RECURRENT Feb-0 7200 8 No Information [facility], [address] [place] [address], [address], [place] tel:[phone] [facility] No Information Feb-0 7200 8 No Information [facility], [address] [place] [address], [address], [place] tel:[phone] Conversion FLU SHOTROUTINE GENERAL MEDICAL EXAMINATION 0200 8 No Information DETAILED OUT/PT [facility], [address] [place] [address], [address], [place] tel:[phone] [facility] Adult Medicine No Information 0 8 No Information DETAILED OUT/PT [facility], [address] [place] [address], [address], [place] tel:[phone] [facility] Adult Medicine No Information 8 No Information [facility], [address] [place] [address], [address], [place] tel:[phone] Conversion ENCOUNTERS FOR UNSPECIFIED ADMINISTRATIV E PURPOSE 8 No Information FOCUSED OUT/PT [facility], [address] [place] [address], [address], [place] tel:[phone] [facility] Adult Medicine No Information 8 No Information EXPANDED OUT/PT [facility], [address] [place] [address], [address], [place] tel:[phone] [facility] Adult [facility] No Information 8 No Information [facility], [address] [place] [address], [id number], [place] tel:[phone] Conversion SYMPTOMATIC MENOPAUSAL OR FEMALE CLIMACTERIC STATESUNSPECI FIED VIRAL HEPATITIS CSCREENING EXAMINATION FOR PULMONARY TUBERCULOSIS 8 No Information [facility], [address] [place] [address], [id number], [place] tel:[phone] Conversion ALCOHOL DEPENDENCEOPI OID DEPENDENCEDEP RESSIVE DISORDER, NOT ELSEWHERE CLASSIFIED 8 No Information [facility], [address] [place] [address], [id number], [place] tel:[phone] [facility] Behavioral Health No Information 8 No Information FOCUSED OUT/PT [facility], [address] [place] [address], [id number], [place] tel:[phone] [facility] Adult Medicine No Information 7 No Information DETAILED OUT/PT [facility], [address] [place] [address], [id number], [place] tel:[phone] [facility] Adult Medicine No Information 7 No Information [facility], [address] [place] [address], [id number], [place] tel:[phone] Conversion BRONCHITIS, ACUTE 7 No Information DETAILED OUT/PT [facility], [address] [place] [address], [id number], [place] tel:[phone] [facility] Adult Medicine No Information 7 No Information DETAILED OUT/PT [facility], [address] [place] [address], [id number], [place] tel:[phone] [facility] Adult Medicine No Information 7 No Information [facility], [address] [place] [address], [id number], [place] tel:[phone] Conversion HYPOTHYROIDIS M, UNSPECIFIED AQUIREDHEPATI TIS C WITHOUT MENTION OF HEPATIC COMA 7 No Information EXPANDED OUT/PT [facility], [address] [place] [address], [id number], [place] tel:[phone] [facility] Adult Medicine No Information No Information EXPANDED OUT/PT [facility], [address] [place] [address], [facility], [place] tel:[phone] [facility] Adult Medicine No Information 7 No Information [facility], [address] [place] [address], [facility], [place] tel:[phone] Conversion SCREENING EXAMINATION FOR VENEREAL DISEASETORTIC OLLIS UNSPECIFIED 7 No Information NEW Level 3 - Detailed [facility], [address] [place] [address], [id number], [place] tel:[phone] [facility] Adult Medicine No Information 7 No Information [facility], [address] [place] [address], [facility], [place] tel:[phone] Conversion PNEUMONIA ORGANISM UNSPECIFIEDCO UGH 7 No [...]
== END 2024-08-22 14:16 | disposition home or self-care (01) ==
LOC: HO.HNS 13:37
PROVIDERS: PCP Physician Assistant; Visit Provider Physician Assistant
DX: Z98.1 Arthrodesis status (principal)
CPT/HCPCS: 99024

== ENCOUNTER → 2024-08-22 13:38 | Outpatient (BNV) | payer OTHER, SELFPAY | PROVIDERS: Visit Provider Radiology Diagnostic Radiology | DX: Z98.1 Arthrodesis status (principal); M47.895 Other spondylosis, thoracolumbar region | CPT/HCPCS: 72110 ==

== ENCOUNTER 2024-09-07 13:22 | Outpatient (AMB) | payer OTHER, SELFPAY ==
[2024-09-07 13:24] VITALS: BP 110/64; PULSE 65; O2SAT 96; BMI 33.6
--- NOTE | 2024-09-07 13:24 | MHC.OFFVIS ---
Vital Signs 09/07/24 13:24 Height 5 ft 4 in Weight 195 lb 8 oz BMI 33.6 BP 110/64 Blood Pressure Location Lt brachial Position Sitting Pulse 65 Pulse Source Pulse Oximeter Pulse Oximetry (%) 96 Oxygen Delivery Method Room Air Intake Visit Reasons: 6 mo follow up-Conf Intake Note: patient following up sleep study done 03/22/24 Allergies Penicillins [PENICILLINS] Allergy (Intermediate, Verified 09/07/24 13:26) RASH (CHILDHOOD ALLERGY) Medication List - Last Reconciled 09/07/24 by Bibiana Spence MD albuterol sulfate 90 mcg/actuation (Ventolin HFA) 1 puff inhalation Q4H PRN bisacodyl (Dulcolax (bisacodyl)) 5 mg PO DAILY buprenorphine-naloxone 8-2 mg (Suboxone) 1 strip sublingual DAILY cane As directed clonazepam 1 mg PO BEDTIME 30 days clonidine HCl 0.2 mg PO BEDTIME 90 days fluoxetine 60 mg (3 x 20 mg) PO DAILY hydroxyzine HCl 50 mg PO BEDTIME 30 days ibuprofen 800 mg PO DAILY PRN lidocaine 5% 1 patch topical DAILY 30 days lisinopril-hydrochlorothiazide 10-12.5 mg 1 tab PO DAILY 90 days methocarbamol 750 mg PO BID PRN 60 days methylphenidate HCl ER (Concerta) 36 mg PO DAILY 28 days nebulizers As directed polyethylene glycol 3350 (Miralax) 17 grams PO BID pregabalin 100 mg PO BID 30 days primidone 25 mg PO BID@0900,1400 propranolol 10 mg PO BID PRN 30 days trazodone 100 mg PO BEDTIME 90 days umeclidinium-vilanterol 62.5-25 mcg/actuation (Anoro Ellipta) 1 inh inhalation DAILY vitamin B complex 1 tab PO DAILY HPI Comments Details: 63y/o Right handed female comes for f.u of tremors.she is not sure primidone is helping she had back surgery 2 months ago and is walking better. Home sleep study was inconclusive . History form initial visit- She started noticing tremors in her hands about 6 mths ago and feels she has inner tremors in her whole body.she denies any stressors, no change in her medications etc. The tremors are mostly with posture and action. SHe also has some head, voice tremors.No change in voice . SHe denies any swallowing issues.she has trouble writing , using utensils etc. she also describes intermittent involuntary muscle spasms or jerks.she is not clear of the muscle spasms are at rest or sleeping she has chronic sleep issues and takes medications to help.she has snoring, frequent arousals and excessive dyatime fatigue. she has h/o anxiety depression and managed with medications. she has h/o chronic back pain she denies any fh/o tremors. [facility] Medical History Arthritis Degenerative disc disease, lumbar Back pain Fibromyalgia Thrombocytopenia Constipation Hiatal hernia Hepatitis C Sleep apnea Tremor of both hands Forgetfulness ADHD SOB (shortness of breath) Wheezing Bronchitis COPD (chronic obstructive pulmonary disease) Hypersomnia Snoring Saccular aneurysm Pulmonary embolism SARS-CoV-2 positive Opioid abuse Alcohol use disorder, severe, dependence Ganglion cyst Obese Tubular adenoma of colon Otitis externa RUQ abdominal pain GERD (gastroesophageal reflux disease) Acute anxiety Depression Insomnia Surgical History Hx of unilateral oophorectomy Hx of appendectomy History of surgery on right wrist Hx of shoulder surgery History of esophagogastroduodenoscopy (EGD) Hx of colonoscopy Previous back surgery Family History Father Alzheimer disease Mother Stroke Brother Esophageal cancer Other Mental problem Substance abuse Social History Household Members: Significant Other Household Members Other:: [facility] Housing: Apartment Are you a primary primary care nurse to a significant other at home: No Do you presently have visiting nurse or other home services: No Alcohol intake: current Alcohol intake frequency: does not drink Alcohol type: hard liquor Patient Tobacco Use Status: Former Tobacco user Tobacco use type: Cigarette Cigarettes Per Day: 10 Years Smoked: 40 e-Cigarette/Vaping Use: Former Use Second Hand Smoke Exposure: Yes Substance Use Type: Marijuana Advance Directives Date on File: 03/17/22 service: No Current occupational status: employed 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 General: patient oriented x3, tone normal, moves all extremities and no focal motor deficits Cranial nerves: Yes Facial sensation intact/muscles of mastication intact, Yes Equal, round and reactive pupils present, Yes Bilaterally intact EOM present, Yes Nystagmus not present, Yes Normal facial strength present, Yes Midline tongue present, Yes Symmetric palate elevation present and Yes Ability to bilaterally elevate shoulders present Cognition (Neuro): normal cognition Motor exam (neuro): 5/5 motor strength present throughout and Normal motor muscle tone present throughout Coordination: [id number] test normal Assessment & Plan Assessment & Plan (1) Tremor: Comment: essential vs exaggerated physiological tremors Code(s): R25.1 - Tremor, unspecified Category: Medical (2) Saccular aneurysm: Comment: seen by Neurosurgery - clinical follow up Code(s): I67.1 - Cerebral aneurysm, nonruptured Category: Medical (3) Snoring: Code(s): R06.83 - Snoring Category: Medical (4) Hypersomnia: Code(s): G47.10 - Hypersomnia, unspecified Category: Medical Plan No evidence of Parkinsons on todays exam Continue Primidone 50mg 1/2 tab bid Propranolol 10 mg as needed Home sleep study normal , will order in lab sleep study Orders: Orders RT PSG in-lab sleep study Today G47.10 - Hypersomnia, unspecified, R06.83 - Snoring Coding Level of Care Code Est Pt Level 4 (06011) Complex EM visit Add On G2211 Diagnoses Tremor R25.1 Saccular aneurysm I67.1 Snoring R06.83 Hypersomnia G47.10
--- OUTSIDE RECORDS SUMMARY | 2024-09-07 16:21 | XMS_ITS | Continuity of Care Document ---
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 Phone Unavailable Unavailable Unavailable Allergies, [...] Diagnoses Date Provider Providers Copied on Encounter [facility], [address] [place] [address], [facility], tel:[phone] [facility] Behavior[facility] Health No Information 1 No Information [facility], [address] [place] [address], [facility], tel:[phone] Conversion AXIS V GLOBAL ASSESS OF FUNCTIONING (GAF) SCALE ___ (100-0) 1 No Information [facility], [address] [place] [address], [facility], tel:[phone] Conversion No Information 1 No Information [facility], [address] [place] [address], [facility], tel:[phone] Conversion No Information Feb-0 1-201 1 No Information [facility], [address] [place], [address], [place] tel:[phone] [facility] Behavior[facility] Health No Information Adin-0 5-201 1 No Information GROUP PSYCHOTHERAPY [facility], [address] [place], [address], [place] tel:[phone] [facility] Behavior[facility] No Information Adin-0 3-201 1 No Information GROUP PSYCHOTHERAPY [facility], [address] [place], [address], [place] tel:[phone] [facility] No Information Dec-2 0-201 0 No Information [facility], [address] [place], [address], [place] tel:[phone] [facility] No Information Dec-1 5-201 0 No Information [facility], [address] [place] [address], [address], [place] tel:[phone] [facility] No Information Dec-1 5-201 0 No Information PSYCHOTHERAPY, GROUP [facility], [address] [place] [address], [address], [place] tel:[phone] [facility] No Information Dec-1 3-201 0 No Information [facility], [address] [place], [address], [place] tel:[phone] [facility] Behavior[facility] No Information Dec-0 7-201 0 No Information GROUP PSYCHOTHERAPY [facility], [address] [place] [address], [address], [place] tel:[phone] [facility] Behavior[facility] No Information Dec-0 6-201 0 No Information GROUP PSYCHOTHERAPY [facility], [address] [place] [address], [address], [place] tel:[phone] [facility] No Information Nov-2 9-201 0 No Information [facility], [address] [place] [address], [address], [place] tel:[phone] [facility] No Information Nov-2 4-201 0 No Information GROUP PSYCHOTHERAPY [facility], [address] [place] [address], [address], [place] tel:[phone] [facility] No Information Nov-2 2-201 0 No Information [facility], [address] [place], [address], [place] tel:[phone] [facility] No Information Nov-1 6-201 0 No Information GROUP PSYCHOTHERAPY [facility], [address] [place] [address], [facility], [place] tel:[phone] [facility] No Information Nov-1 5-201 0 No Information [facility], [address] [place] [address], [facility], [place] tel:[phone] [facility] No Information Nov-0 9-201 0 No Information GROUP PSYCHOTHERAPY [facility], [address] [place] [address], [address], [place] tel:[phone] [facility] No Information Nov-0 8-201 0 No Information [facility], [address] [place] [address], [facility], [place] tel:[phone] [facility] No Information Nov-0 4-201 0 No Information GROUP PSYCHOTHERAPY [facility], [address] [place] [address], [facility], [place] tel:[phone] [facility] No Information Nov-0 1-201 0 No Information [facility], [address] [place] [address], [address], [place] tel:[phone] [facility] No Information Feb-2 9 0 No Information [facility], [address] [place] [address], [address], [place] tel:[phone] [facility] No Information Feb-2 6- 0 No Information [facility], [address] [place] [address], [address], [place] tel:[phone] Historic Immunization Location No Information Feb-2 6-201 0 No Information DETAILED OUT/PT [facility], [address] [place] [address], [address], [place] tel:[phone] [facility] Adult Medicine No Information Feb-2 6- 0 No Information [facility], [address] [place] [address], [address], [place] tel:[phone] Conversion No Information Feb-2 5-201 0 No Information [facility], [address] [place] [address], [address], [place] tel:[phone] [facility] No Information Oct-2 5-201 0 No Information [facility], [address] [place] [address], [address], [place] tel:[phone] [facility] No Information Oct-2 0-201 0 No Information [facility], [address] [place] [address], [facility], [place] tel:[phone] Conversion No Information Oct-2 0-201 0 No Information [facility], [address] [place] [address], [facility], [place] tel:[phone] [facility] No Information Sep-3 0-201 0 No Information [facility], [address] [place] [address], [address], [place] tel:[phone] Conversion ALCOHOL ABUSE Sep-3 0-201 0 No Information [facility], [address] [place] [address], [facility], [place] tel:[phone] Conversion COUNSELING ON SUBSTANCE USE AND ABUSELACK OF PHYSICAL EXERCISE Sep-2 7-201 0 No Information [facility], [address] [place] [address], [facility], [place] tel:[phone] [facility] No Information Sep-2 0-201 0 No Information [facility], [address] [place] [address], [address], [place] tel:[phone] Conversion No Information Sep-2 0-201 0 No Information [facility], [address] [place] [address], [facility], [place] tel:[phone] [facility] No Information Sep-0 9-201 0 No Information [facility], [address] [place] [address], [address], [place] tel:[phone] Conversion NONDEPENDENT ABUSE OF DRUGS, OPIOID ABUSE, EPISODICANXIE TY STATE, UNSPECIFIEDHY POGLYCEMIA UNSPECIFIED, NON-DIABETIC Dec-2 4 0 No Information DETAILED OUT/PT [facility], [address] [place] [address], [address], [place] tel:[phone] [facility] Adult Medicine No Information Dec-2 4 0 No Information [facility], [address] [place] [address], [address], [place] tel:[phone] Conversion No Information 0 No Information [facility], [address] [place], [address], [place] tel:[phone] [facility] No Information 0 No Information [facility], [address] [place] [address], [address], [place] tel:[phone] [facility] No Information 0 No Information [facility], [address] [place], [address], [place] tel:[phone] [facility] No Information 0 No Information [facility], [address] [place] [address], [address], [place] tel:[phone] [facility] No Information 0 No Information [facility], [address] [place] [address], [address], [place] tel:[phone] Conversion REFLUX ESOPHAGITISFA TIGUE/MALAISE NONDEPENDENT ABUSE OF DRUGS, OPIOID ABUSE, IN REMISSION 0 No Information DETAILED OUT/PT [facility], [address] [place], [address], [place] tel:[phone] [facility] Adult [facility] No Information 0 No Information [facility], [address] [place] [address], [address], [place] tel:[phone] Conversion 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 0 No Information [facility], [address] [place] [address], [address], [place] tel:[phone] [facility] No Information 0 No Information [facility], [address] [place] [address], [address], [place] tel:[phone] [facility] No Information 0 No Information [facility], [address] [place] [address], [address], [place] tel:[phone] [facility] No Information 0 No Information [facility], [address] [place] [address], [address], [place] tel:[phone] [facility] No Information 0 No Information [facility], [address] [place] [address], [address], [place] tel:[phone] Conversion COCAINE DEPENDENCE, EPISODICOSTEO ARTHROSIS, GENERALIZED, SITE UNSPECIFIED 8 0 No Information [facility], [address] [place] [address], [address], [place] tel:[phone] [facility] Adult [facility] No Information 0 No Information [facility], [address] [place] [address], [facility], [place] tel:[phone] Conversion HUMAN IMMUNODEFICIE NCY VIRUS [HIV] DISEASE 0 No Information DETAILED OUT/PT [facility], [address] [place] [address], [facility], [place] tel:[phone] [facility] Adult [facility] No Information 9 No Information [facility], [address] [place] [address], [facility], [place] tel:[phone] Conversion HEPATITIS C (CHRONIC)DELGADO ETT'S ESOPHAGUSOTHE R AND UNSPECIFIED ALCOHOL DEPENDENCE, IN REMISSION 9 No Information DETAILED OUT/PT [facility], [address] [place] [address], [address], [place] tel:[phone] [facility] Adult [facility] No Information 9 No Information [facility], [address] [place] [address], [facility], [place] tel:[phone] Conversion INSOMNIA, UNSPECIFIEDOT HER CHRONIC PAIN 9 No Information [facility], [address] [place] [address], [address], [place] tel:[phone] Conversion CHOLELITHIASI SESOPHAGITIS UNSPECIFIEDMO TTLED TEETHNONDEPEN DENT OTHER MIXED OR UNSPECIFIED DRUG ABUSE IN REMISSION 9 No Information DETAILED OUT/PT [facility], [address] [place] [address], [facility], [place] tel:[phone] [facility] Adult [facility] No Information 9 No Information [facility], [address] [place] [address], [facility], [place] tel:[phone] Conversion HEARTBURNCALC ULUS OF GALLBLADDER WITH OTHER CHOLECYSTITIS WITHOUT OBSTRUCTIONOT HER SPECIFIED ASTHMA 9 No Information DETAILED OUT/PT [facility], [address] [place] [address], [address], [place] tel:[phone] [facility] Adult [facility] No Information 9 No Information [facility], [address] [place] [address], [address], [place] tel:[phone] Conversion ACUTE PAINACUTE CHOLECYSTITIS 9 No Information DETAILED OUT/PT [facility], [address] [place] [address], [address], [place] tel:[phone] [facility] Adult [facility] No Information 9 No Information [facility], [address] [place] [address], [address], [place] tel:[phone] Conversion UNSPECIFIED ESSENTIAL HYPERTENSIONP REMENOPAUSAL MENORRHAGIA 9 No Information DETAILED OUT/PT [facility], [address] [place] [address], [address], [place] tel:[phone] [facility] Adult [facility] No Information 9 No Information [facility], [address] [place] [address], [address], [place] tel:[phone] [facility] Behavior[facility] No Information 0 8 No Information [facility], [address] [place] [address], [address], [place] tel:[phone] Conversion ESOPHAGEAL REFLUX 8 No Information DETAILED OUT/PT [facility], [address] [place] [address], [address], [place] tel:[phone] [facility] Adult Medicine No Information 200 8 No Information [facility], [address] [place] [address], [address], [place] tel:[phone] [facility] Behavior[facility] No Information Sep-0 9200 8 No Information MINIMAL OUT/PT [facility], [address] [place] [address], [address], [place] tel:[phone] [facility] Adult Medicine No Information Sep-0 2200 8 No Information PREVENTIVE COUNSELING, INDIV Former[facility], [address] [place] [address], [facility], [place] tel:[phone] [facility] Adult [facility] No Information Aug-0 4-200 8 No Information DETAILED OUT[facility]PT [facility], [address] [place], [address], [place] tel:[phone] [facility] Adult [facility] No Information Nov-1 4-200 8 No Information [facility], [address] [place] [address], [address], [place] tel:[phone] [facility] Behavior[facility] No Information Nov-0 8-200 8 No Information [facility], [address] [place], [address], [place] tel:[phone] [facility] Behavior[facility] No Information Vasyl-2 3-200 8 No Information MINIMAL OUT/PT [facility], [address] [place] [address], [address], [place] tel:[phone] [facility] Adult Medicine No Information Vasyl-1 8-200 8 No Information EXPANDED OUT/PT [facility], [address] [place] [address], [facility], [place] tel:[phone] [facility] Adult Medicine No Information Vasyl-0 7-200 8 No Information [facility], [address] [place] [address], [address], [place] tel:[phone] [facility] Behavior[facility] No Information September-2 2-200 8 No Information MINIMAL OUT/PT [facility], [address] [place] [address], [address], [place] tel:[phone] [facility] Adult Medicine No Information September-1 3-200 8 No Information DETAILED OUT/PT [facility], [address] [place] [address], [address], [place] tel:[phone] [facility] Adult [facility] No Information September-1 2-200 8 No Information [facility], [address] [place] [address], [address], [place] tel:[phone] [facility] No Information May-0 6-200 8 No Information [facility], [address] [place] [address], [address], [place] tel:[phone] Conversion UNSPECIFIED DRUG DEPENDENCE UNSPECIFIED USE May-0 6-200 8 No Information [facility], [address] [place] [address], [address], [place] tel:[phone] Conversion DIZZINESS AND GIDDINESSANEM IA UNSPECIFIED September-0 5-200 8 No Information DETAILED OUT/PT [facility], [address] [place] [address], [address], [place] tel:[phone] [facility] Adult [facility] No Information May-0 5-200 8 No Information [facility], [address] [place] [address], [address], [place] tel:[phone] [facility] Behavior[facility] No Information Apr-2 9-200 8 No Information [facility], [address] [place] [address], [address], [place] tel:[phone] Conversion COMBINATIONS OF DRUG DEPENDENCE EXCLUDING OPIOID TYPE DRUG UNSPECIFIED USE Apr-2 9-200 8 No Information [facility], [address] [place] [address], [address], [place] tel:[phone] Conversion ROUTINE GYNECOLOGICAL EXAMINATION Apr-2 4-200 8 No Information WELL EXAM 40-64 [facility], [address] [place] [address], [address], [place] tel:[phone] [facility] No Information Apr-2 4-200 8 No Information [facility], [address] [place] [address], [address], [place] tel:[phone] [facility] Behavior[facility] No Information Apr-2 4-200 8 No Information PREVENTIVE COUNSELING, INDIV [facility], [address] [place] [address], [address], [place] tel:[phone] [facility] Adult Medicine No Information Apr-2 2-200 8 No Information [facility], [address] [place] [address], [address], [place] tel:[phone] [facility] Behavior[facility] No Information Apr-0 8-200 8 No Information [facility], [address] [place] [address], [address], [place] tel:[phone] [facility] Behavior[facility] No Information Apr-0 3-200 8 No Information DETAILED OUT/PT [facility], [address] [place] [address], [address], [place] tel:[phone] [facility] Adult Medicine No Information Apr-0 2-200 8 No Information [facility], [address] [place] [address], [facility], [place] tel:[phone] [facility] Behavior[facility] No Information Jul-2 0-200 8 No Information [facility], [address] [place] [address], [address], [place] tel:[phone] [facility] No Information Jul- 3-200 8 No Information [facility], [address] [place] [address], [address], [place] tel:[phone] Conversion MAJOR DEPRESSIVE AFFECTIVE DISORDER RECURRENT EPISODE MODERATE DEGREE Feb-2 8-200 8 No Information [facility], [address] [place] [address], [address], [place] tel:[phone] [facility] No Information Feb-2 8200 8 No Information DETAILED OUT/PT [facility], [address] [place] [address], [facility], [place] tel:[phone] [facility] Adult [facility] No Information Feb-2 7200 8 No Information [facility], [address] [place] [address], [facility], [place] tel:[phone] [facility] No Information Jun-2 1200 8 No Information MINIMAL OUT/PT [facility], [address] [place] [address], [address], [place] tel:[phone] [facility] Adult [facility] No Information b-1 8200 8 No Information [facility], [address] [place] [address], [address], [place] tel:[phone] Conversion COCAINE DEPENDENCEMAJ OR DEPRESSION, RECURRENT Feb-0 7200 8 No Information [facility], [address] [place] [address], [address], [place] tel:[phone] [facility] No Information Feb-0 7200 8 No Information [facility], [address] [place] [address], [address], [place] tel:[phone] Conversion FLU SHOTROUTINE GENERAL MEDICAL EXAMINATION 0200 8 No Information DETAILED OUT/PT [facility], [address] [place] [address], [address], [place] tel:[phone] [facility] Adult [facility] No Information 0 8 No Information DETAILED OUT/PT [facility], [address] [place] [address], [address], [place] tel:[phone] [facility] Adult [facility] No Information 8 No Information [facility], [address] [place] [address], [address], [place] tel:[phone] Conversion ENCOUNTERS FOR UNSPECIFIED ADMINISTRATIV E PURPOSE 8 No Information FOCUSED OUT/PT [facility], [address] [place] [address], [address], [place] tel:[phone] [facility] Adult [facility] No Information 8 No Information EXPANDED OUT/PT [facility], [address] [place] [address], [address], [place] tel:[phone] [facility] Adult [facility] No Information 8 No Information [facility], [address] [place] [address], [address], [place] tel:[phone] Conversion SYMPTOMATIC MENOPAUSAL OR FEMALE CLIMACTERIC STATESUNSPECI FIED VIRAL HEPATITIS CSCREENING EXAMINATION FOR PULMONARY TUBERCULOSIS 8 No Information [facility], [address] [place] [address], [address], [place] tel:[phone] Conversion ALCOHOL DEPENDENCEOPI OID DEPENDENCEDEP RESSIVE DISORDER, NOT ELSEWHERE CLASSIFIED 8 No Information [facility], [address] [place] [address], [address], [place] tel:[phone] [facility] No Information 8 No Information FOCUSED OUT/PT [facility], [address] [place] [address], [address], [place] tel:[phone] [facility] Adult Medicine No Information 7 No Information DETAILED OUT/PT [facility], [address] [place] [address], [address], [place] tel:[phone] [facility] Adult [facility] No Information 7 No Information [facility], [address] [place] [address], [address], [place] tel:[phone] Conversion BRONCHITIS, ACUTE 7 No Information DETAILED OUT/PT [facility], [address] [place] [address], [address], [place] tel:[phone] [facility] Adult [facility] No Information 7 No Information DETAILED OUT/PT [facility], [address] [place] [address], [address], [place] tel:[phone] [facility] Adult [facility] No Information 7 No Information [facility], [address] [place] [address], [address], [place] tel:[phone] Conversion HYPOTHYROIDIS M, UNSPECIFIED AQUIREDHEPATI TIS C WITHOUT MENTION OF HEPATIC COMA 7 No Information EXPANDED OUT/PT Formerly [facility], [address] [place] [address], [id number], [place] tel:[phone] [facility] Adult Medicine No Information No Information EXPANDED OUT/PT [facility], [address] [place] [address], [facility], [place] tel:[phone] [facility] Adult Medicine No Information 7 No Information Formerly [facility], [address] [place] [address], [facility], [place] tel:[phone] Conversion SCREENING EXAMINATION FOR VENEREAL DISEASETORTIC OLLIS UNSPECIFIED 7 No Information NEW Level 3 - Detailed Formerly [facility], [address] [place] [address], [id number], [place] tel:[phone] [facility] Adult Medicine No Information 7 No Information Formerly [facility], [address] [place] [address], [facility], [place] tel:[phone] Conversion PNEUMONIA ORGANISM UNSPECIFIEDCO UGH 7 No [...]
--- OUTSIDE RECORDS SUMMARY | 2024-09-07 16:21 | XMS_ITS | Clinical Summary ---
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 Grain Sacker Name Role Phone Kait Martínez MD Primary Care Provider [phone] Allergies Active Allergy Reactions Criticality Noted Date [...] Only [facility], - [facility] [address] [place] [address] Aretha Elder from Last 3 Months Social History Tobacco [...] Colonoscopy 10/22/2008 Colorectal Cancer Screening: Sigmoidoscopy 10/22/2008 Pneumococcal Vaccine: 50+ Ye ars (1 - PCV) 10/22/2009 Influenza Vaccine (Season Ended) 2025 Hepatitis B Vaccine Aged Out No longe r eligible based on patient's age to complete this topic Insurance [facility] Medicaid Care Teams Grain Sacker Relationship Specialty Start Date End Date Kait Martínez MD [address] [place], [place] PCP - General Internal Medicine 05/31/24
== END 2024-09-07 13:42 | disposition home or self-care (01) ==
LOC: HO.HSMS 13:22
PROVIDERS: PCP Physician Assistant; Visit Provider Psychiatry & Neurology Neurology
DX: R25.1 Tremor, unspecified (principal); I67.1 Cerebral aneurysm, nonruptured; R06.83 Snoring; G47.10 Hypersomnia, unspecified
CPT/HCPCS: 99214; G2211

== ENCOUNTER → 2024-09-07 13:22 | Outpatient (BNVA) | payer OTHER, SELFPAY | PROVIDERS: PCP Physician Assistant; Visit Provider Psychiatry & Neurology Neurology | DX: R25.1 Tremor, unspecified (principal); R06.83 Snoring; G47.10 Hypersomnia, unspecified; I67.1 Cerebral aneurysm, nonruptured | CPT/HCPCS: 99212 ==

== ENCOUNTER 2024-09-08 11:41 | Outpatient (REF) | payer OTHER, SELFPAY ==
--- NOTE | ~2024-09-08 | XR_ITS ---
EXAMINATION: X-ray lumbar spine 4 views. CLINICAL INFORMATION: Arthrodesis status. TECHNIQUE: 4 views of the lumbar spine. COMPARISON: August 22, 2024. FINDINGS: Multilevel thoracolumbar spondylosis. Status post intervertebral disc spacer placement at L5-S1 and L4-5 with sclerosis at the endplates of L5-S1. No acute cortical disruption. Grade 1 retrolisthesis at L2-3. Vascular calcifications, aorta. XR/XR lumbar spine 4V min IMPRESSION: No gross change. Electronically signed by: Kirk So MD 09/08/2024 01:36 PM EDT
--- OUTSIDE RECORDS SUMMARY | 2024-09-08 13:14 | XMS_ITS | Continuity of Care Document ---
Author Organization [facility] vices Address [address] [place] [address] Phone Care Team Providers Care License Clerk Name Role Phone Unavailable Unavailable Unavailable Allergies, [...] Diagnoses Date Provider Providers Copied on Encounter [facility], [address] [place] [address], [facility], tel:[phone] [facility] Behavioral Health No Information 1 No Information [facility], [address] [place] [address], [facility], tel:[phone] Conversion AXIS V GLOBAL ASSESS OF FUNCTIONING (GAF) SCALE ___ (100-0) 1 No Information [facility], [address] [place] [address], [facility], tel:[phone] Conversion No Information 1 No Information [facility], [address] [place] [address], [facility], tel:[phone] Conversion No Information Feb-0 1-201 1 No Information [facility], [address] [place], [address], [place] tel:[phone] [facility] Behavior[facility] Health No Information Adin-0 5-201 1 No Information GROUP PSYCHOTHERAPY [facility], [address] [place], [address], [place] tel:[phone] [facility] Behavior[facility] No Information Adin-0 3-201 1 No Information GROUP PSYCHOTHERAPY [facility], [address] [place], [address], [place] tel:[phone] [facility] No Information Dec-2 0-201 0 No Information [facility], [address] [place], [address], [place] tel:[phone] [facility] No Information Dec-1 5-201 0 No Information [facility], [address] [place] [address], [address], [place] tel:[phone] [facility] Behavior[facility] Health No Information Dec-1 5-201 0 No Information PSYCHOTHERAPY, GROUP [facility], [address] [place] [address], [address], [place] tel:[phone] [facility] Behavior[facility] Health No Information Dec-1 3-201 0 No Information [facility], [address] [place], [address], [place] tel:[phone] [facility] Behavior[facility] Health No Information Dec-0 7-201 0 No Information GROUP PSYCHOTHERAPY [facility], [address] [place] [address], [address], [place] tel:[phone] [facility] Behavior[facility] No Information Dec-0 6-201 0 No Information GROUP PSYCHOTHERAPY [facility], [address] [place] [address], [address], [place] tel:[phone] [facility] No Information Nov-2 9-201 0 No Information [facility], [address] [place] [address], [address], [place] tel:[phone] [facility] Behavior[facility] No Information Nov-2 4-201 0 No Information GROUP PSYCHOTHERAPY [facility], [address] [place] [address], [address], [place] tel:[phone] [facility] Behavior[facility] No Information Nov-2 2-201 0 No Information [facility], [address] [place], [address], [place] tel:[phone] [facility] Behavior[facility] No Information Nov-1 6-201 0 No Information GROUP PSYCHOTHERAPY [facility], [address] [place] [address], [facility], [place] tel:[phone] [facility] No Information Nov-1 5-201 0 No Information [facility], [address] [place] [address], [facility], [place] tel:[phone] [facility] Behavior[facility] No Information Nov-0 9-201 0 No Information GROUP PSYCHOTHERAPY [facility], [address] [place] [address], [address], [place] tel:[phone] [facility] Behavior[facility] No Information Nov-0 8-201 0 No Information [facility], [address] [place] [address], [facility], [place] tel:[phone] [facility] Behavior[facility] No Information Nov-0 4-201 0 No Information GROUP PSYCHOTHERAPY [facility], [address] [place] [address], [facility], [place] tel:[phone] [facility] No Information Nov-0 1-201 0 No Information [facility], [address] [place] [address], [address], [place] tel:[phone] [facility] Behavior[facility] No Information Feb-2 9 0 No Information [facility], [address] [place] [address], [address], [place] tel:[phone] [facility] No Information Feb-2 6- 0 No Information [facility], [address] [place] [address], [address], [place] tel:[phone] Historic Immunization Location No Information Feb-2 6-201 0 No Information DETAILED OUT/PT [facility], [address] [place] [address], [address], [place] tel:[phone] [facility] Adult Medicine No Information Feb-2 6- 0 No Information [facility], [address] [place] [address], [address], [place] tel:[phone] Conversion No Information Feb-2 5-201 0 No Information [facility], [address] [place] [address], [address], [place] tel:[phone] [facility] No Information Oct-2 5-201 0 No Information [facility], [address] [place] [address], [address], [place] tel:[phone] [facility] No Information Oct-2 0-201 0 No Information [facility], [address] [place] [address], [facility], [place] tel:[phone] Conversion No Information Oct-2 0-201 0 No Information [facility], [address] [place] [address], [facility], [place] tel:[phone] [facility] No Information Sep-3 0-201 0 No Information [facility], [address] [place] [address], [address], [place] tel:[phone] Conversion ALCOHOL ABUSE Sep-3 0-201 0 No Information [facility], [address] [place] [address], [facility], [place] tel:[phone] Conversion COUNSELING ON SUBSTANCE USE AND ABUSELACK OF PHYSICAL EXERCISE Sep-2 7-201 0 No Information [facility], [address] [place] [address], [facility], [place] tel:[phone] [facility] No Information Sep-2 0-201 0 No Information [facility], [address] [place] [address], [address], [place] tel:[phone] Conversion No Information Sep-2 0-201 0 No Information [facility], [address] [place] [address], [facility], [place] tel:[phone] [facility] No Information Sep-0 9-201 0 No Information [facility], [address] [place] [address], [address], [place] tel:[phone] Conversion NONDEPENDENT ABUSE OF DRUGS, OPIOID ABUSE, EPISODICANXIE TY STATE, UNSPECIFIEDHY POGLYCEMIA UNSPECIFIED, NON-DIABETIC Dec-2 4 0 No Information DETAILED OUT/PT [facility], [address] [place] [address], [address], [place] tel:[phone] [facility] Adult Medicine No Information Dec-2 4 0 No Information [facility], [address] [place] [address], [address], [place] tel:[phone] Conversion No Information 0 No Information [facility], [address] [place], [address], [place] tel:[phone] [facility] Behavior[facility] No Information 0 No Information [facility], [address] [place] [address], [address], [place] tel:[phone] [facility] Behavior[facility] No Information 0 No Information [facility], [address] [place], [address], [place] tel:[phone] [facility] No Information 0 No Information [facility], [address] [place] [address], [address], [place] tel:[phone] [facility] No Information 0 No Information [facility], [address] [place] [address], [address], [place] tel:[phone] Conversion REFLUX ESOPHAGITISFA TIGUE/MALAISE NONDEPENDENT ABUSE OF DRUGS, OPIOID ABUSE, IN REMISSION 0 No Information DETAILED OUT/PT [facility], [address] [place], [address], [place] tel:[phone] [facility] Adult Medicine No Information 0 No Information [facility], [address] [place] [address], [address], [place] tel:[phone] Conversion 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 0 No Information [facility], [address] [place] [address], [address], [place] tel:[phone] [facility] No Information 0 No Information [facility], [address] [place] [address], [address], [place] tel:[phone] [facility] Behavior[facility] No Information 0 No Information [facility], [address] [place] [address], [address], [place] tel:[phone] [facility] Behavior[facility] No Information 0 No Information [facility], [address] [place] [address], [address], [place] tel:[phone] [facility] No Information 0 No Information [facility], [address] [place] [address], [address], [place] tel:[phone] Conversion COCAINE DEPENDENCE, EPISODICOSTEO ARTHROSIS, GENERALIZED, SITE UNSPECIFIED 8 0 No Information [facility], [address] [place] [address], [address], [place] tel:[phone] [facility] Adult Medicine No Information 0 No Information [facility], [address] [place] [address], [facility], [place] tel:[phone] Conversion HUMAN IMMUNODEFICIE NCY VIRUS [HIV] DISEASE 0 No Information DETAILED OUT/PT [facility], [address] [place] [address], [facility], [place] tel:[phone] [facility] Adult [facility] No Information 9 No Information [facility], [address] [place] [address], [facility], [place] tel:[phone] Conversion HEPATITIS C (CHRONIC)DELGADO ETT'S ESOPHAGUSOTHE R AND UNSPECIFIED ALCOHOL DEPENDENCE, IN REMISSION 9 No Information DETAILED OUT/PT [facility], [address] [place] [address], [address], [place] tel:[phone] [facility] Adult [facility] No Information 9 No Information [facility], [address] [place] [address], [facility], [place] tel:[phone] Conversion INSOMNIA, UNSPECIFIEDOT HER CHRONIC PAIN 9 No Information [facility], [address] [place] [address], [address], [place] tel:[phone] Conversion CHOLELITHIASI SESOPHAGITIS UNSPECIFIEDMO TTLED TEETHNONDEPEN DENT OTHER MIXED OR UNSPECIFIED DRUG ABUSE IN REMISSION 9 No Information DETAILED OUT/PT [facility], [address] [place] [address], [facility], [place] tel:[phone] [facility] Adult [facility] No Information 9 No Information [facility], [address] [place] [address], [facility], [place] tel:[phone] Conversion HEARTBURNCALC ULUS OF GALLBLADDER WITH OTHER CHOLECYSTITIS WITHOUT OBSTRUCTIONOT HER SPECIFIED ASTHMA 9 No Information DETAILED OUT/PT [facility], [address] [place] [address], [address], [place] tel:[phone] [facility] Adult [facility] No Information 9 No Information [facility], [address] [place] [address], [address], [place] tel:[phone] Conversion ACUTE PAINACUTE CHOLECYSTITIS 9 No Information DETAILED OUT/PT [facility], [address] [place] [address], [address], [place] tel:[phone] [facility] Adult [facility] No Information 9 No Information [facility], [address] [place] [address], [address], [place] tel:[phone] Conversion UNSPECIFIED ESSENTIAL HYPERTENSIONP REMENOPAUSAL MENORRHAGIA 9 No Information DETAILED OUT/PT [facility], [address] [place] [address], [address], [place] tel:[phone] [facility] Adult [facility] No Information 9 No Information [facility], [address] [place] [address], [address], [place] tel:[phone] [facility] Behavior[facility] No Information 0 8 No Information [facility], [address] [place] [address], [address], [place] tel:[phone] Conversion ESOPHAGEAL REFLUX 8 No Information DETAILED OUT/PT [facility], [address] [place] [address], [address], [place] tel:[phone] [facility] Adult Medicine No Information 200 8 No Information [facility], [address] [place] [address], [address], [place] tel:[phone] [facility] Behavior[facility] No Information Sep-0 9200 8 No Information MINIMAL OUT/PT [facility], [address] [place] [address], [address], [place] tel:[phone] [facility] Adult Medicine No Information Sep-0 2200 8 No Information PREVENTIVE COUNSELING, INDIV [facility], [address] [place] [address], [facility], [place] tel:[phone] [facility] Adult [facility] No Information Aug-0 4-200 8 No Information [facility], [address] [place], [address], [place] tel:[phone] [facility] Adult [facility] No Information Nov-1 4-200 8 No Information [facility], [address] [place] [address], [address], [place] tel:[phone] [facility] Behavior[facility] No Information Nov-0 8-200 8 No Information [facility], [address] [place], [address], [place] tel:[phone] [facility] No Information Vasyl-2 3-200 8 No Information MINIMAL OUT/PT [facility], [address] [place] [address], [address], [place] tel:[phone] [facility] Adult Medicine No Information Vasyl-1 8-200 8 No Information EXPANDED OUT/PT [facility], [address] [place] [address], [facility], [place] tel:[phone] [facility] Adult Medicine No Information Vasyl-0 7-200 8 No Information [facility], [address] [place] [address], [address], [place] tel:[phone] [facility] Behavior[facility] No Information September-2 2-200 8 No Information MINIMAL OUT/PT [facility], [address] [place] [address], [address], [place] tel:[phone] [facility] Adult [facility] No Information September-1 3-200 8 No Information DETAILED OUT/PT [facility], [address] [place] [address], [address], [place] tel:[phone] [facility] Adult [facility] No Information September-1 2-200 8 No Information [facility], [address] [place] [address], [address], [place] tel:[phone] [facility] No Information May-0 6-200 8 No Information [facility], [address] [place] [address], [address], [place] tel:[phone] Conversion UNSPECIFIED DRUG DEPENDENCE UNSPECIFIED USE May-0 6-200 8 No Information [facility], [address] [place] [address], [address], [place] tel:[phone] Conversion DIZZINESS AND GIDDINESSANEM IA UNSPECIFIED September-0 5-200 8 No Information DETAILED OUT/PT [facility], [address] [place] [address], [address], [place] tel:[phone] [facility] Adult [facility] No Information May-0 5-200 8 No Information [facility], [address] [place] [address], [address], [place] tel:[phone] [facility] No Information Apr-2 9-200 8 No Information [facility], [address] [place] [address], [address], [place] tel:[phone] Conversion COMBINATIONS OF DRUG DEPENDENCE EXCLUDING OPIOID TYPE DRUG UNSPECIFIED USE Apr-2 9-200 8 No Information [facility], [address] [place] [address], [address], [place] tel:[phone] Conversion ROUTINE GYNECOLOGICAL EXAMINATION Apr-2 4-200 8 No Information WELL EXAM 40-64 [facility], [address] [place] [address], [address], [place] tel:[phone] [facility] No Information Apr-2 4-200 8 No Information [facility], [address] [place] [address], [address], [place] tel:[phone] [facility] Behavior[facility] No Information Apr-2 4-200 8 No Information PREVENTIVE COUNSELING, INDIV [facility], [address] [place] [address], [address], [place] tel:[phone] [facility] Adult Medicine No Information Apr-2 2-200 8 No Information [facility], [address] [place] [address], [address], [place] tel:[phone] [facility] Behavior[facility] No Information Apr-0 8-200 8 No Information [facility], [address] [place] [address], [address], [place] tel:[phone] [facility] Behavior[facility] No Information Apr-0 3-200 8 No Information DETAILED OUT/PT [facility], [address] [place] [address], [address], [place] tel:[phone] [facility] Adult Medicine No Information Apr-0 2-200 8 No Information [facility], [address] [place] [address], [facility], [place] tel:[phone] [facility] No Information Jul-2 0-200 8 No Information [facility], [address] [place] [address], [address], [place] tel:[phone] [facility] No Information Jul- 3-200 8 No Information [facility], [address] [place] [address], [address], [place] tel:[phone] Conversion MAJOR DEPRESSIVE AFFECTIVE DISORDER RECURRENT EPISODE MODERATE DEGREE Feb-2 8-200 8 No Information [facility], [address] [place] [address], [address], [place] tel:[phone] [facility] Behavior[facility] No Information Feb-2 8200 8 No Information DETAILED OUT/PT [facility], [address] [place] [address], [facility], [place] tel:[phone] [facility] Adult [facility] No Information Feb-2 7200 8 No Information [facility], [address] [place] [address], [facility], [place] tel:[phone] [facility] No Information Jun-2 1200 8 No Information MINIMAL OUT/PT [facility], [address] [place] [address], [address], [place] tel:[phone] [facility] Adult Medicine No Information b-1 8200 8 No Information [facility], [address] [place] [address], [address], [place] tel:[phone] Conversion COCAINE DEPENDENCEMAJ OR DEPRESSION, RECURRENT Feb-0 7200 8 No Information [facility], [address] [place] [address], [address], [place] tel:[phone] [facility] No Information Feb-0 7200 8 No Information [facility], [address] [place] [address], [address], [place] tel:[phone] Conversion FLU SHOTROUTINE GENERAL MEDICAL EXAMINATION 0200 8 No Information DETAILED OUT/PT [facility], [address] [place] [address], [address], [place] tel:[phone] [facility] Adult [facility] No Information 0 8 No Information [facility]AILED OUT[facility]PT [facility], [address] [place] [address], [address], [place] tel:[phone] [facility] Adult [facility] No Information 8 No Information [facility], [address] [place] [address], [address], [place] tel:[phone] Conversion ENCOUNTERS FOR UNSPECIFIED ADMINISTRATIV E PURPOSE 8 No Information FOCUSED OUT/PT [facility], [address] [place] [address], [address], [place] tel:[phone] [facility] Adult [facility] No Information 8 No Information EXPANDED OUT/PT [facility], [address] [place] [address], [address], [place] tel:[phone] [facility] Adult [facility] No Information 8 No Information [facility], [address] [place] [address], [address], [place] tel:[phone] Conversion SYMPTOMATIC MENOPAUSAL OR FEMALE CLIMACTERIC STATESUNSPECI FIED VIRAL HEPATITIS CSCREENING EXAMINATION FOR PULMONARY TUBERCULOSIS 8 No Information [facility], [address] [place] [address], [address], [place] tel:[phone] Conversion ALCOHOL DEPENDENCEOPI OID DEPENDENCEDEP RESSIVE DISORDER, NOT ELSEWHERE CLASSIFIED 8 No Information [facility], [address] [place] [address], [address], [place] tel:[phone] [facility] Behavior[facility] No Information 8 No Information FOCUSED OUT/PT [facility], [address] [place] [address], [address], [place] tel:[phone] [facility] Adult Medicine No Information 7 No Information DETAILED OUT/PT [facility], [address] [place] [address], [address], [place] tel:[phone] [facility] Adult [facility] No Information 7 No Information [facility], [address] [place] [address], [address], [place] tel:[phone] Conversion BRONCHITIS, ACUTE 7 No Information DETAILED OUT/PT [facility], [address] [place] [address], [address], [place] tel:[phone] [facility] Adult [facility] No Information 7 No Information DETAILED OUT/PT [facility], [address] [place] [address], [address], [place] tel:[phone] [facility] Adult [facility] No Information 7 No Information [facility], [address] [place] [address], [address], [place] tel:[phone] Conversion HYPOTHYROIDIS M, UNSPECIFIED AQUIREDHEPATI TIS C WITHOUT MENTION OF HEPATIC COMA 7 No Information EXPANDED OUT/PT [facility], [address] [place] [address], [address], [place] tel:[phone] [facility] Adult [facility] No Information No Information EXPANDED OUT/PT [facility], [address] [place] [address], [facility], [place] tel:[phone] [facility] Adult Medicine No Information 7 No Information [facility], [address] [place] [address], [facility], [place] tel:[phone] Conversion SCREENING EXAMINATION FOR VENEREAL DISEASETORTIC OLLIS UNSPECIFIED 7 No Information NEW Level 3 - Detailed [facility], [address] [place] [address], [id number], [place] tel:[phone] [facility] Adult Medicine No Information 7 No Information [facility], [address] [place] [address], [facility], [place] tel:[phone] Conversion PNEUMONIA ORGANISM UNSPECIFIEDCO UGH 7 No [...]
--- OUTSIDE RECORDS SUMMARY | 2024-09-08 13:15 | XMS_ITS | Clinical Summary ---
Author Organization [facility], Address [address] [place] [address] Phone Care Team Providers Care Feather Drying Machine Operator Name Role Phone Kait Martínez MD Primary Care Provider [phone] Allergies Active Allergy Reactions Criticality Noted Date [...] Only [facility], - [facility] [address] [place] [address] Aretha Elder from Last 3 Months Social [...] patient's age to complete this topic Insurance [facility] Medicaid Care Teams Feather Drying Machine Operator Relationship Specialty Start Date End Date Kait Martínez MD [address] [place], [place] PCP - General Internal Medicine 05/31/24
== END 2024-09-08 11:42 | disposition home or self-care (01) ==
LOC: HO.HMGCX 11:41
PROVIDERS: PCP Physician Assistant; Visit Provider Physician Assistant
DX: M54.50 Low back pain, unspecified (principal); Z98.1 Arthrodesis status; W10.8XXA Fall (on) (from) other stairs and steps, initial encounter
CPT/HCPCS: 72110; 99212

== ENCOUNTER 2024-09-08 11:41 | Outpatient (AMB) | payer OTHER, SELFPAY ==
[2024-09-08 11:44] VITALS: BP 106/68; PULSE 64; RESP 16; TEMP 36.8; O2SAT 95; BMI 33.3
--- NOTE | 2024-09-08 11:44 | AM.OFFWIN_ITS ---
Intake Vital Signs 09/08/24 11:44 Height 5 ft 4 in Weight 194 lb BMI 33.3 BP 106/68 Blood Pressure Location Lt brachial Position Sitting Respiration 16 Pulse 64 Pulse Source Pulse Oximeter Temp 98.2 F Temp Source Oral Pulse Oximetry (%) 95 Oxygen Delivery Method Room Air Intake Visit Reasons: EP-rt side neck, lt hip, lt knee pain from a fall Intake Note: Pt is here today, took a fall last night on the laundry room where she lives. Rt side of neck pain and Lt hip and knee pain Allergies Penicillins [PENICILLINS] Allergy (Intermediate, Verified 09/08/24 11:48) RASH (CHILDHOOD ALLERGY) HPI HPI Comments History of Present Illness Details History of Present Illness - The patient is a 63-year-old female pr esenting with a fall that led to exacerbated low back pain and potential cervical strain. - Last night, she fell while trying to s tep into a laundry room, unaware of a missing concrete step, this occured at her apt building. - She was carrying things in her left ar m and used her right arm for her her walking stick and mitigated the fall, affecting primarily her left knee and hip and low back. She did not hit her head, she did not lose consciousness and does not use a blood thinner. She didn't fall on her hip or on an outstretched hand, her cane caught her fall. She feels like she has whiplash from falling forward and then backward quickly. - Post-fall, she noted intensified low b ack pain, had surgery 8-9 weeks ago, and now reports new right knee pain, headache, dizziness. She did not try taking tylenol or ibuprofen or a muscle relaxer. - Concerns arise from her history of spi nal fusion surgery and a cerebral aneurysm. - She has lidocaine patches on her low b ack now. Physical Exam General: Cooperative, healthy appearing, comfortable, no acute distress and well developed Orientation: Patient oriented x3 Limitations: baseline uses 3 prong cane Head: Normal to inspection, no bruising or trauma noted Ears: Hearing grossly normal bilaterally, TMs normal bilaterally Nose: Normal External nose present Face and sinus: Normal facial exam Eyes: Appearance normal, both eyes and all related structures Neck: Normal visual inspection, full ROM, tenderness noted paraspinous muscles Respiratory: Normal respiratory effort and able to speak in complete sentences. Skin: No rashes or lesions noted Pelvis/Hip: pelvis and bilateral hips are stable, no TTP to bilateral hips. Spine/back: no TTP to cervical, thoracic or lumbar spine, some TTP to left sided low back where she has [address] Neuro: Patient oriented x3, cranial nerves 2-12 intact, gait normal using 3 prong cane Extremities: Normal to inspection, left knee slight ttp, full ROM and 4/5 strength and sensation intact PFSH Medical History Arthritis Degenerative disc disease, lumbar Back pain Fibromyalgia Thrombocytopenia Constipation Hiatal hernia Hepatitis C Sleep apnea Tremor of both hands Forgetfulness ADHD SOB (shortness of breath) Wheezing Bronchitis COPD (chronic obstructive pulmonary disease) Hypersomnia Snoring Saccular aneurysm Pulmonary embolism SARS-CoV-2 positive Opioid abuse Alcohol use disorder, severe, dependence Ganglion cyst Obese Tubular adenoma of colon Otitis externa RUQ abdominal pain GERD (gastroesophageal reflux disease) Acute anxiety Depression Insomnia Surgical History Hx of unilateral oophorectomy Hx of appendectomy History of surgery on right wrist Hx of shoulder surgery History of esophagogastroduodenoscopy (EGD) Hx of colonoscopy Previous back surgery Family History Father Alzheimer disease Mother Stroke Brother Esophageal cancer Other Mental problem Substance abuse Social History Household Members: Significant Other Household Members Other:: fiancee Housing: Apartment Are you a primary child care worker to a significant other at home: No Do you presently have visiting nurse or other home services: No Alcohol intake: current Alcohol intake frequency: does not drink Alcohol type: hard liquor Tobacco use type: Cigarette Cigarettes Per Day: 10 Years Smoked: 40 e-Cigarette/Vaping Use: Former Use Second Hand Smoke Exposure: Yes Substance Use Type: Marijuana Advance Directives Date on File: 03/17/22 service: No Current occupational status: employed 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[employer], 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 Sexual orientation: Straight/Heterosexual Cognitive needs: Yes (cane) Hearing needs: No Vision needs: Yes (Glasses) Review of Systems Const All systems reviewed & are unremarkable except as noted in HPI and below Physical Exam Vital Signs: Last Vital Signs Temp 98.2 F 09/08/24 11:44 Pulse 64 09/08/24 11:44 Resp 16 09/08/24 11:44 BP 106/68 09/08/24 11:44 Pulse Ox 95 09/08/24 11:44 Oxygen Delivery Method Room Air 09/08/24 11:44 BMI result Body Mass Index 33.3 Assessment & Plan Assessment & Plan (1) S/P spinal fusion: Code(s): Z98.1 - Arthrodesis status Plan: Her knee examination suggests no significant injury, and she maintains full range of motion. Cranial nerves intact and gait normal. The patient experienced increased low back pain and cervical discomfort following a fall. A lumbar X-ray is ordered to ensure spinal fusion integrity as patient is concerned. She was prescribed Naproxen for anti-inflammatory relief and to continue methocarbamol which she has at home for muscle relaxation. Should neurological symptoms, dizzyness worsen, if she develops visual changes or JON after she treats herself with Tylenol, due to her history of cerebral aneurysm, immediate medical attention is required. Pain management with Tylenol and avoidance of ibuprofen are advised, in addition to utilizing rest, ice, or heat as needed. Patient was informed and verbally consented to the use of an ambient scribe for clinic note documentation during this visit. (2) Fall (on) (from) other stairs and steps, initial encounter: Code(s): W10.8XXA - Fall (on) (from) other stairs and steps, initial encounter Plan: as above (3) Low back pain: Code(s): M54.50 - Low back pain, unspecified Qualifiers: Chronicity: chronic Back pain laterality: left Sciatica presence: without sciatica Qualified Code(s): M54.50 - Low back pain, unspecified; G89.29 - Other chronic pain Plan: as above Orders: Orders XR lumbar spine 4V min Today M54.50 - Low back pain, unspecified, W10.8XXA - Fall (on) (from) other stairs and steps, initial encounter, Z98.1 - Arthrodesis status Medications: New naproxen 500 mg PO Q12H PRN 20 tabs 0RF pain Coding Level of Care Code Est Pt Level 4 (70551) Diagnoses S/P spinal fusion Z98.1 Fall (on) (from) other stairs and steps, initial encounter W10.8XXA Chronic left-sided low back pain without sciatica M54.50; G89.29 Chronicity: chronic Back pain laterality: left Sciatica presence: without sciatica
--- OUTSIDE RECORDS SUMMARY | 2024-09-08 12:45 | XMS_ITS | Continuity of Care Document ---
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 Role Phone Unavailable Unavailable Unavailable Allergies, [...] Encounter [facility], [address] [place] [address], [facility], tel:[phone] [facility] Behavioral Health No Information 1 No Information [facility], [address] [place] [address], [facility], tel:[phone] Conversion AXIS V GLOBAL ASSESS OF FUNCTIONING (GAF) SCALE ___ (100-0) 1 No Information [facility], [address] [place] [address], [facility], tel:[phone] Conversion No Information 1 No Information [facility], [address] [place] [address], [facility], tel:[phone] Conversion No Information Feb-0 1-201 1 No Information [facility], [address] [place], [address], [place] tel:[phone] [facility] No Information Adin-0 5-201 1 No Information GROUP PSYCHOTHERAPY [facility], [address] [place], [address], [place] tel:[phone] [facility] No Information Adin-0 3-201 1 No Information GROUP PSYCHOTHERAPY [facility], [address] [place], [address], [place] tel:[phone] [facility] No Information Dec-2 0-201 0 No Information [facility], [address] [place], [address], [place] tel:[phone] [facility] No Information Dec-1 5-201 0 No Information [facility], [address] [place] [address], [address], [place] tel:[phone] [facility] No Information Dec-1 5-201 0 No Information PSYCHOTHERAPY, GROUP [facility], [address] [place] [address], [address], [place] tel:[phone] [facility] No Information Dec-1 3-201 0 No Information [facility], [address] [place], [address], [place] tel:[phone] [facility] No Information Dec-0 7-201 0 No Information GROUP PSYCHOTHERAPY [facility], [address] [place] [address], [address], [place] tel:[phone] [facility] No Information Dec-0 6-201 0 No Information GROUP PSYCHOTHERAPY [facility], [address] [place] [address], [address], [place] tel:[phone] [facility] No Information Nov-2 9-201 0 No Information [facility], [address] [place] [address], [address], [place] tel:[phone] [facility] No Information Nov-2 4-201 0 No Information GROUP PSYCHOTHERAPY [facility], [address] [place] [address], [address], [place] tel:[phone] [facility] No Information Nov-2 2-201 0 No Information [facility], [address] [place], [address], [place] tel:[phone] [facility] No Information Nov-1 6-201 0 No Information GROUP PSYCHOTHERAPY [facility], [address] [place] [address], [facility], [place] tel:[phone] [facility] No Information Nov-1 5-201 0 No Information [facility], [address] [place] [address], [facility], [place] tel:[phone] [facility] No Information Nov-0 9-201 0 No Information GROUP PSYCHOTHERAPY [facility], [address] [place] [address], [address], [place] tel:[phone] [facility] No Information Nov-0 8-201 0 No Information [facility], [address] [place] [address], [facility], [place] tel:[phone] [facility] No Information Nov-0 4-201 0 No Information GROUP PSYCHOTHERAPY [facility], [address] [place] [address], [facility], [place] tel:[phone] [facility] No Information Nov-0 1-201 0 No Information [facility], [address] [place] [address], [address], [place] tel:[phone] [facility] No Information Feb-2 9 0 No Information [facility], [address] [place] [address], [address], [place] tel:[phone] [facility] No Information Feb-2 6- 0 No Information [facility], [address] [place] [address], [address], [place] tel:[phone] Historic Immunization Location No Information Feb-2 6-201 0 No Information DETAILED OUT/PT [facility], [address] [place] [address], [address], [place] tel:[phone] [facility] Adult Medicine No Information Feb-2 6- 0 No Information [facility], [address] [place] [address], [address], [place] tel:[phone] Conversion No Information Feb-2 5-201 0 No Information [facility], [address] [place] [address], [address], [place] tel:[phone] [facility] No Information Oct-2 5-201 0 No Information [facility], [address] [place] [address], [address], [place] tel:[phone] [facility] No Information Oct-2 0-201 0 No Information [facility], [address] [place] [address], [facility], [place] tel:[phone] Conversion No Information Oct-2 0-201 0 No Information [facility], [address] [place] [address], [facility], [place] tel:[phone] [facility] No Information Sep-3 0-201 0 No Information [facility], [address] [place] [address], [address], [place] tel:[phone] Conversion ALCOHOL ABUSE Sep-3 0-201 0 No Information [facility], [address] [place] [address], [facility], [place] tel:[phone] Conversion COUNSELING ON SUBSTANCE USE AND ABUSELACK OF PHYSICAL EXERCISE Sep-2 7-201 0 No Information [facility], [address] [place] [address], [facility], [place] tel:[phone] [facility] No Information Sep-2 0-201 0 No Information [facility], [address] [place] [address], [address], [place] tel:[phone] Conversion No Information Sep-2 0-201 0 No Information [facility], [address] [place] [address], [facility], [place] tel:[phone] [facility] No Information Sep-0 9-201 0 No Information [facility], [address] [place] [address], [address], [place] tel:[phone] Conversion NONDEPENDENT ABUSE OF DRUGS, OPIOID ABUSE, EPISODICANXIE TY STATE, UNSPECIFIEDHY POGLYCEMIA UNSPECIFIED, NON-DIABETIC Dec-2 4 0 No Information DETAILED OUT/PT [facility], [address] [place] [address], [address], [place] tel:[phone] [facility] Adult [facility] No Information Dec-2 4 0 No Information [facility], [address] [place] [address], [address], [place] tel:[phone] Conversion No Information 0 No Information [facility], [address] [place], [address], [place] tel:[phone] [facility] No Information 0 No Information [facility], [address] [place] [address], [address], [place] tel:[phone] [facility] No Information 0 No Information [facility], [address] [place], [address], [place] tel:[phone] [facility] No Information 0 No Information [facility], [address] [place] [address], [address], [place] tel:[phone] [facility] No Information 0 No Information [facility], [address] [place] [address], [address], [place] tel:[phone] Conversion REFLUX ESOPHAGITISFA TIGUE/MALAISE NONDEPENDENT ABUSE OF DRUGS, OPIOID ABUSE, IN REMISSION 0 No Information DETAILED OUT/PT [facility], [address] [place], [address], [place] tel:[phone] [facility] Adult [facility] No Information 0 No Information [facility], [address] [place] [address], [address], [place] tel:[phone] Conversion 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 0 No Information [facility], [address] [place] [address], [address], [place] tel:[phone] [facility] No Information 0 No Information [facility], [address] [place] [address], [address], [place] tel:[phone] [facility] No Information 0 No Information [facility], [address] [place] [address], [address], [place] tel:[phone] [facility] No Information 0 No Information [facility], [address] [place] [address], [address], [place] tel:[phone] [facility] No Information 0 No Information [facility], [address] [place] [address], [address], [place] tel:[phone] Conversion COCAINE DEPENDENCE, EPISODICOSTEO ARTHROSIS, GENERALIZED, SITE UNSPECIFIED 8 0 No Information [facility], [address] [place] [address], [address], [place] tel:[phone] [facility] Adult [facility] No Information 0 No Information [facility], [address] [place] [address], [facility], [place] tel:[phone] Conversion HUMAN IMMUNODEFICIE NCY VIRUS [HIV] DISEASE 0 No Information DETAILED OUT/PT [facility], [address] [place] [address], [facility], [place] tel:[phone] [facility] Adult [facility] No Information 9 No Information [facility], [address] [place] [address], [facility], [place] tel:[phone] Conversion HEPATITIS C (CHRONIC)DELGADO ETT'S ESOPHAGUSOTHE R AND UNSPECIFIED ALCOHOL DEPENDENCE, IN REMISSION 9 No Information DETAILED OUT/PT [facility], [address] [place] [address], [address], [place] tel:[phone] [facility] No Information 9 No Information [facility], [address] [place] [address], [facility], [place] tel:[phone] Conversion INSOMNIA, UNSPECIFIEDOT HER CHRONIC PAIN 9 No Information [facility], [address] [place] [address], [address], [place] tel:[phone] Conversion CHOLELITHIASI SESOPHAGITIS UNSPECIFIEDMO TTLED TEETHNONDEPEN DENT OTHER MIXED OR UNSPECIFIED DRUG ABUSE IN REMISSION 9 No Information DETAILED OUT/PT [facility], [address] [place] [address], [facility], [place] tel:[phone] [facility] No Information 9 No Information [facility], [address] [place] [address], [facility], [place] tel:[phone] Conversion HEARTBURNCALC ULUS OF GALLBLADDER WITH OTHER CHOLECYSTITIS WITHOUT OBSTRUCTIONOT HER SPECIFIED ASTHMA 9 No Information DETAILED OUT/PT [facility], [address] [place] [address], [address], [place] tel:[phone] [facility] No Information 9 No Information [facility], [address] [place] [address], [address], [place] tel:[phone] Conversion ACUTE PAINACUTE CHOLECYSTITIS 9 No Information DETAILED OUT/PT [facility], [address] [place] [address], [address], [place] tel:[phone] [facility] Adult [facility] No Information 9 No Information [facility], [address] [place] [address], [address], [place] tel:[phone] Conversion UNSPECIFIED ESSENTIAL HYPERTENSIONP REMENOPAUSAL MENORRHAGIA 9 No Information DETAILED OUT/PT [facility], [address] [place] [address], [address], [place] tel:[phone] [facility] Adult [facility] No Information 9 No Information [facility], [address] [place] [address], [address], [place] tel:[phone] [facility] No Information 0 8 No Information [facility], [address] [place] [address], [address], [place] tel:[phone] Conversion ESOPHAGEAL REFLUX 8 No Information DETAILED OUT/PT [facility], [address] [place] [address], [address], [place] tel:[phone] [facility] Adult [facility] No Information 200 8 No Information [facility], [address] [place] [address], [address], [place] tel:[phone] [facility] No Information Sep-0 9200 8 No Information MINIMAL OUT/PT [facility], [address] [place] [address], [address], [place] tel:[phone] [facility] Adult [facility] No Information Sep-0 2200 8 No Information PREVENTIVE COUNSELING, INDIV [facility], [address] [place] [address], [facility], [place] tel:[phone] [facility] Adult [facility] No Information Aug-0 4-200 8 No Information [facility], [address] [place], [address], [place] tel:[phone] [facility] No Information Nov-1 4-200 8 No Information [facility], [address] [place] [address], [address], [place] tel:[phone] [facility] No Information Nov-0 8-200 8 No Information [facility], [address] [place], [address], [place] tel:[phone] [facility] No Information Vasyl-2 3-200 8 No Information MINIMAL OUT/PT [facility], [address] [place] [address], [address], [place] tel:[phone] [facility] Adult [facility] No Information Vasyl-1 8-200 8 No Information EXPANDED OUT/PT [facility], [address] [place] [address], [facility], [place] tel:[phone] [facility] Adult [facility] No Information Vasyl-0 7-200 8 No Information [facility], [address] [place] [address], [address], [place] tel:[phone] [facility] No Information September-2 2-200 8 No Information MINIMAL OUT/PT [facility], [address] [place] [address], [address], [place] tel:[phone] [facility] No Information September-1 3-200 8 No Information DETAILED OUT/PT [facility], [address] [place] [address], [address], [place] tel:[phone] [facility] No Information September-1 2-200 8 No Information [facility], [address] [place] [address], [address], [place] tel:[phone] [facility] No Information May-0 6-200 8 No Information [facility], [address] [place] [address], [address], [place] tel:[phone] Conversion UNSPECIFIED DRUG DEPENDENCE UNSPECIFIED USE May-0 6-200 8 No Information [facility], [address] [place] [address], [address], [place] tel:[phone] Conversion DIZZINESS AND GIDDINESSANEM IA UNSPECIFIED September-0 5-200 8 No Information DETAILED OUT/PT [facility], [address] [place] [address], [address], [place] tel:[phone] [facility] No Information May-0 5-200 8 No Information [facility], [address] [place] [address], [address], [place] tel:[phone] [facility] No Information Apr-2 9-200 8 No Information [facility], [address] [place] [address], [address], [place] tel:[phone] Conversion COMBINATIONS OF DRUG DEPENDENCE EXCLUDING OPIOID TYPE DRUG UNSPECIFIED USE Apr-2 9-200 8 No Information [facility], [address] [place] [address], [address], [place] tel:[phone] Conversion ROUTINE GYNECOLOGICAL EXAMINATION Apr-2 4-200 8 No Information WELL EXAM 40-64 [facility], [address] [place] [address], [address], [place] tel:[phone] [facility] No Information Apr-2 4-200 8 No Information [facility], [address] [place] [address], [address], [place] tel:[phone] [facility] No Information Apr-2 4-200 8 No Information PREVENTIVE COUNSELING, INDIV [facility], [address] [place] [address], [address], [place] tel:[phone] [facility] No Information Apr-2 2-200 8 No Information [facility], [address] [place] [address], [address], [place] tel:[phone] [facility] No Information Apr-0 8-200 8 No Information [facility], [address] [place] [address], [address], [place] tel:[phone] [facility] No Information Apr-0 3-200 8 No Information DETAILED OUT/PT [facility], [address] [place] [address], [address], [place] tel:[phone] [facility] Adult [facility] No Information Apr-0 2-200 8 No Information [facility], [address] [place] [address], [facility], [place] tel:[phone] [facility] No Information Jul-2 0-200 8 No Information [facility], [address] [place] [address], [address], [place] tel:[phone] [facility] No Information Jul- 3-200 8 No Information [facility], [address] [place] [address], [address], [place] tel:[phone] Conversion MAJOR DEPRESSIVE AFFECTIVE DISORDER RECURRENT EPISODE MODERATE DEGREE Feb-2 8-200 8 No Information [facility], [address] [place] [address], [address], [place] tel:[phone] [facility] No Information Feb-2 8200 8 No Information DETAILED OUT/PT [facility], [address] [place] [address], [facility], [place] tel:[phone] [facility] Adult [facility] No Information Feb-2 7200 8 No Information [facility], [address] [place] [address], [facility], [place] tel:[phone] [facility] No Information Jun-2 1200 8 No Information MINIMAL OUT/PT [facility], [address] [place] [address], [address], [place] tel:[phone] [facility] Adult [facility] No Information b-1 8200 8 No Information [facility], [address] [place] [address], [address], [place] tel:[phone] Conversion COCAINE DEPENDENCEMAJ OR DEPRESSION, RECURRENT Feb-0 7200 8 No Information [facility], [address] [place] [address], [address], [place] tel:[phone] [facility] No Information Feb-0 7200 8 No Information [facility], [address] [place] [address], [address], [place] tel:[phone] Conversion FLU SHOTROUTINE GENERAL MEDICAL EXAMINATION 0200 8 No Information DETAILED OUT/PT [facility], [address] [place] [address], [address], [place] tel:[phone] [facility] Adult Medicine No Information 0 8 No Information DETAILED OUT/PT [facility], [address] [place] [address], [address], [place] tel:[phone] [facility] Adult [facility] No Information 8 No Information [facility], [address] [place] [address], [address], [place] tel:[phone] Conversion ENCOUNTERS FOR UNSPECIFIED ADMINISTRATIV E PURPOSE 8 No Information FOCUSED OUT/PT [facility], [address] [place] [address], [address], [place] tel:[phone] [facility] Adult [facility] No Information 8 No Information EXPANDED OUT/PT [facility], [address] [place] [address], [address], [place] tel:[phone] [facility] Adult [facility] No Information 8 No Information [facility], [address] [place] [address], [address], [place] tel:[phone] Conversion SYMPTOMATIC MENOPAUSAL OR FEMALE CLIMACTERIC STATESUNSPECI FIED VIRAL HEPATITIS CSCREENING EXAMINATION FOR PULMONARY TUBERCULOSIS 8 No Information [facility], [address] [place] [address], [address], [place] tel:[phone] Conversion ALCOHOL DEPENDENCEOPI OID DEPENDENCEDEP RESSIVE DISORDER, NOT ELSEWHERE CLASSIFIED 8 No Information [facility], [address] [place] [address], [address], [place] tel:[phone] [facility] No Information 8 No Information FOCUSED OUT/PT [facility], [address] [place] [address], [address], [place] tel:[phone] [facility] Adult Medicine No Information 7 No Information DETAILED OUT/PT [facility], [address] [place] [address], [address], [place] tel:[phone] [facility] Adult [facility] No Information 7 No Information [facility], [address] [place] [address], [address], [place] tel:[phone] Conversion BRONCHITIS, ACUTE 7 No Information DETAILED OUT/PT [facility], [address] [place] [address], [address], [place] tel:[phone] [facility] Adult [facility] No Information 7 No Information DETAILED OUT/PT [facility], [address] [place] [address], [address], [place] tel:[phone] [facility] Adult [facility] No Information 7 No Information [facility], [address] [place] [address], [address], [place] tel:[phone] Conversion HYPOTHYROIDIS M, UNSPECIFIED AQUIREDHEPATI TIS C WITHOUT MENTION OF HEPATIC COMA 7 No Information EXPANDED OUT/PT [facility], [address] [place] [address], [address], [place] tel:[phone] [facility] Adult Medicine No Information No Information EXPANDED OUT/PT [facility], [address] [place] [address], [facility], [place] tel:[phone] [facility] Adult Medicine No Information 7 No Information [facility], [address] [place] [address], [facility], [place] tel:[phone] Conversion SCREENING EXAMINATION FOR VENEREAL DISEASETORTIC OLLIS UNSPECIFIED 7 No Information NEW Level 3 - Detailed [facility], [address] [place] [address], [address], [place] tel:[phone] [facility] Adult Medicine No Information 7 No Information [facility], [address] [place] [address], [facility], [place] tel:[phone] Conversion PNEUMONIA ORGANISM UNSPECIFIEDCO UGH 7 No [...]
--- OUTSIDE RECORDS SUMMARY | 2024-09-08 12:45 | XMS_ITS | Clinical Summary ---
Author Organization [facility], Address [address] [place] [address] Phone Care Team Providers Care Box Toe Flanger Stitchdowns Name Role Phone Kait Martínez MD Primary Care Provider [phone] Allergies Active Allergy Reactions Criticality Noted Date [...] Only [facility], - [facility] [address] [place] [address] Aretha Elder from Last 3 Months Social [...] patient's age to complete this topic Insurance [facility] Medicaid Care Teams Box Toe Flanger Stitchdowns Relationship Specialty Start Date End Date Kait Martínez MD [address] [place], [place] PCP - General Internal Medicine 05/31/24
== END 2024-09-08 12:31 | disposition home or self-care (01) ==
PROVIDERS: PCP Physician Assistant; Visit Provider Physician Assistant
DX: Z98.1 Arthrodesis status (principal); W10.8XXA Fall (on) (from) other stairs and steps, initial encounter; M54.50 Low back pain, unspecified; G89.29 Other chronic pain

== ENCOUNTER → 2024-09-08 13:05 | Outpatient (BNV) | payer OTHER, SELFPAY | PROVIDERS: PCP Physician Assistant; Visit Provider Radiology Diagnostic Radiology | DX: Z98.1 Arthrodesis status (principal) | CPT/HCPCS: 72110 ==

== ENCOUNTER → 2024-09-29 19:30 | Outpatient (BNV) | payer MEDICARE, MEDICAID, SELFPAY | PROVIDERS: PCP Physician Assistant; Visit Provider Psychiatry & Neurology Neurology | DX: R09.02 Hypoxemia (principal) | CPT/HCPCS: 95810 ==

== ENCOUNTER → 2024-09-29 19:30 | Outpatient (REF) | payer MEDICARE, MEDICAID, SELFPAY ==
--- OUTSIDE RECORDS SUMMARY | 2024-09-29 21:37 | XMS_ITS | Clinical Summary ---
Author Organization [facility], Address [address] [place] [address] Phone Care Team Providers Care Bottom Worker Name Role Phone Kait Martínez MD Primary Care Provider [phone] Allergies Active Allergy Reactions Criticality Noted Date [...] of left eye 12/30/2022 Overview (12/30/2022): Bilateral Social History Tobacco Use Types Packs/Day Years [...] 10/22/2008 Pneumococcal Vaccine: 50+ Ye ars (1 of 1 - PCV) 10/22/2009 Influenza Vaccine (Season Ended) 2025 Hepatitis B Vaccine Aged Out No longe r eligible based on patient's age to complete this topic Insurance Medicaid Care Teams Bottom Worker Relationship Specialty Start Date End Date Kait Martínez MD [address] [place], [place] PCP - General Internal Medicine 05/31/24
== END ==
LOC: HO.SL 19:30
PROVIDERS: PCP Physician Assistant; Visit Provider Psychiatry & Neurology Neurology
DX: G47.10 Hypersomnia, unspecified (principal); R06.83 Snoring
CPT/HCPCS: 95810

== ENCOUNTER 2024-10-03 11:02 | Outpatient (AMB) | payer MEDICARE, MEDICAID, SELFPAY ==
[2024-10-03 11:14] VITALS: BP 130/66; PULSE 66; RESP 16; TEMP 36.3; O2SAT 93; BMI 33.2
--- NOTE | 2024-10-03 11:14 | MHC.PC.OV ---
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 Required: No Accompanied by: Self / Same As Patient Allergies Penicillins [PENICILLINS] Allergy (Intermediate, Verified 10/03/24 11:32) RASH (CHILDHOOD ALLERGY) Medication List - Last Reconciled 10/03/24 by Amari Mckeon PA-C albuterol sulfate 90 mcg/actuation (Ventolin HFA) 1 puff inhalation Q4H PRN bisacodyl (Dulcolax (bisacodyl)) 5 mg PO DAILY buprenorphine-naloxone 8-2 mg (Suboxone) 1 strip sublingual DAILY cane As directed clonazepam 1 mg PO BEDTIME 30 days clonidine HCl 0.2 mg PO BEDTIME 90 days fluoxetine 60 mg (3 x 20 mg) PO DAILY hydroxyzine HCl 50 mg PO BEDTIME 30 days ibuprofen 800 mg PO DAILY PRN lidocaine 5% 1 patch topical DAILY 30 days lisinopril-hydrochlorothiazide 10-12.5 mg 1 tab PO DAILY 90 days methocarbamol 750 mg PO BID PRN 60 days methylphenidate HCl ER (Concerta) 36 mg PO DAILY 28 days naproxen 500 mg PO Q12H PRN nebulizers As directed polyethylene glycol 3350 (Miralax) 17 grams PO BID pregabalin 100 mg PO BID 30 days primidone 25 mg PO BID@0900,1400 propranolol 10 mg PO BID PRN 30 days trazodone 100 mg PO BEDTIME 90 days umeclidinium-vilanterol 62.5-25 mcg/actuation (Anoro Ellipta) 1 inh inhalation DAILY vitamin B complex 1 tab PO DAILY Tobacco use date assessed: 06/30/24 Dental Screening Dental Screen Date: 06/30/24 HPI 6mth f/u Labs HPI Details Patient is a 63-year-old female here today for a follow-up visit Concern--> Had back surgery recently though unfortunately suffered a fall and continues to have pain. She is interested in increasing the dose of pregabalin dose for better pain control Class 1 obesity: Patient has been having a very hard time losing weight. She has been trying to be more physically active though due to her arthritic issues she is not able to be to active. She has been trying better eating habits. Of note recently had a home sleep study that did show nocturnal hypoxemia, subsequently underwent a in lab sleep study and apparently needed supplemental oxygen. Seems she does have some kind of obstructive sleep apnea.. She is interested in a GLP 1 to help her lose weight .. Tremor: Has followed up with Neurology, she has been taken off of primidone as it has been ineffective for her tremor. We did discuss the possibility of trying occupational therapy for compensatory strategies though she does not feel that her tremor is affecting her activities of daily living. She reports propranolol was much more helpful for her tremor. There has been some concern for bronchospasm due to her COPD using beta-simona and she does understand thus risk. Attention deficit disorder: She continues on Concerta which has drastically improved her quality of life. She reports a significant improvement in her attention and focus. .. Anxiety: Reports her anxiety has been not the best controlled, has been working with a mental health therapist. She continues on clonazepam 1 mg daily. Will supplement with propanolol and higher dose of hydroxyzine. .. Migraines in vision issues: Will send for CTA of head and was found to have a 3.5 cm saccular aneurysm. Has been followed up with neurosurgeon and was not considered a surgical candidate for coiling. Given follow-up appointment in 3 years. Hypertension: Blood pressure much improved since addition of lisinopril. Will continue current dose lisinopril hydrochlorothiazide. . smoker: Unfortunately started smoking again due to for stress and anxiety and continued pa she reports she does have nicotine patches available at home and promises to start them in. .. COPD: Continues to follow [facility]. Did have a recent COPD exacerbation was treated with antibiotic and prednisone. She did on full a CT lung screening in 02/11/2024 which was BI-RADS 2, benign appearing nodules. She does have pulmonary nodules have been followed by pulmonology. [facility] Medical History Arthritis Degenerative disc disease, lumbar Back pain Fibromyalgia Thrombocytopenia Constipation Hiatal hernia Hepatitis C Sleep apnea Tremor of both hands Forgetfulness ADHD SOB (shortness of breath) Wheezing Bronchitis COPD (chronic obstructive pulmonary disease) Hypersomnia Snoring Saccular aneurysm Pulmonary embolism SARS-CoV-2 positive Opioid abuse Alcohol use disorder, severe, dependence Ganglion cyst Obese Tubular adenoma of colon Otitis externa RUQ abdominal pain GERD (gastroesophageal reflux disease) Acute anxiety Depression Insomnia Surgical History Hx of unilateral oophorectomy Hx of appendectomy History of surgery on right wrist Hx of shoulder surgery History of esophagogastroduodenoscopy (EGD) Hx of colonoscopy Previous back surgery Family History Father Alzheimer disease Mother Stroke Brother Esophageal cancer Other Mental problem Substance abuse Social History Household Members: Significant Other Household Members Other:: fiancee Housing: Apartment Are you a primary medicare sales executive to a significant other at home: No Do you presently have visiting nurse or other home services: No Alcohol intake: current Alcohol intake frequency: does not drink Alcohol type: hard liquor Tobacco use type: Cigarette Cigarettes Per Day: 10 Years Smoked: 40 e-Cigarette/Vaping Use: Former Use Second Hand Smoke Exposure: Yes Substance Use Type: Marijuana Advance Directives Date on File: 03/17/22 service: No Current occupational status: employed 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 1. Little interest or pleasure in doing things: several days 2. Feeling down, depressed, or hopeless: several days 3. Trouble falling or staying asleep, or sleeping too much: several days 4. Feeling tired or having little energy: several days 5. Poor appetite or overeating: several days 6. Feeling bad about yourself - or that you are a failure or have let yourself or your family down: several days 7. Trouble concentrating on things, such as reading the newspaper or watching television: several days 8. Moving or speaking so slowly that other people could have noticed. Or the opposite - being so fidgety or restless that you have been moving around a lot more than usual: several days 9. Thoughts that you would be better off or of hurting yourself in some way: not at all Total score: 8 Depression Screening Interpretation: Positive Depression Screening Follow-up: Existing condition and In treatment Depression Screening Done: Yes 31614 - PHQ-9 Billing: Yes Source: Developed by Drs. Dannie Sandoval, Kathryn Bryant, Felipe Paulson and colleagues, with an educational rupal from [employer]. Thrive Questionnaire Date Thrive assessed: 06/30/24 I am a: Patient What is your living situation today?: I have a steady place to live Within the past 12 months, did the food you bought not last and you didn't have the money to get more?: Sometimes True Within the past 12 months, did you worry whether your food would run out before you got money to buy more?: Often true Do you have trouble paying for medicines?: No Do you have trouble getting transportation to medical appointments?: No Do you have trouble paying your heating and electricity bill?: No Do you have trouble taking care of your child, family member or friend?: No Do you have trouble with day-to-day activities such as bathing, preparing meals, shopping, managing finances, etc.?: No Are you currently unemployed and looking for a job?: Yes Are you interested in more education?: Yes Please select the resources that you would like help with: Care for elder or disabled Currently or been in a relationship where the following occur: No concerns reported THRIVE Score: 2 AUDIT C Alcohol Use Questionnaire (AUDIT-C) 1. How often do you have a drink containing alcohol?: Never Total Score: 0 FOREIGN-7 AMB Questionnaire FOREIGN-7 Date FOREIGN - 7 assessed: 06/30/24 Feeling nervous, anxious, or on edge: 3 = Nearly every day Not being able to stop or control worryin = More than half the days Worrying too much about different things: 1 = Several days Trouble relaxin = More than half the days Being so restless that it is hard to sit still: 1 = Several days Becoming easily annoyed or irritable: 1 = Several days Feeling afraid as if something awful might happen: 1 = Several days Total FOREIGN-7 score (0-4 normal; 5-9 mild; 10-14 moderate; 15-21 severe): 11 Source: Developed by Drs. Dannie Sandoval, Kathryn Bryant, Felipe Paulson and colleagues, with an educational rupal from [employer]. FOREIGN-7 Assessment Billing FOREIGN-7 Assessment Tool: FOREIGN-7 Assessment 67694 Review of Systems Const Denies headache(s) Eyes Denies loss of vision ENT Denies vertigo, Denies dizziness, Denies headache(s) and Denies sore throat Card Denies chest pain, Denies leg edema and Denies lightheadedness Resp Denies cough, Denies hemoptysis and Denies wheezing GI Denies abdominal pain, Denies melena, Denies constipation, Denies diarrhea and Denies vomiting Denies urinary frequency, Denies dysuria and Denies urinary urgency Musc Denies arthralgias, Denies joint swelling, Denies numbness and Denies tingling Neuro Denies Abnormal speech present, Denies behavioral changes, Denies vertigo, Denies dizziness, Denies headache(s), Denies loss of vision, Denies memory loss, Denies numbness and Denies tingling Psych Denies anxiety, Denies behavioral changes, Denies depression, Denies memory loss and Denies panic attacks Rizwan/Lymph Denies easy bleeding and Denies easy bruising Aller/Immun Denies wheezing Physical exam (Primary Care) Vital Signs: Last Vital Signs Temp 97.3 F 10/03/24 11:14 Pulse 66 10/03/24 11:14 Resp 16 10/03/24 11:14 BP 130/66 10/03/24 11:14 Pulse Ox 93 10/03/24 11:14 Oxygen Delivery Method Room Air 10/03/24 11:14 BMI result Body Mass Index 33.2 BMI Assessment/Plan discussion: High BMI High, discussed plan: lifestyle, weight reduction, dietary and physical activity Tobacco/Smoking Status: Tobacco use Status Tobacco use date assessed 06/30/24 10/03/24 11:16 Patient Tobacco Use Status Current someday Tobacco 03/30/24 11:22 Tobacco use type Cigarette 10/03/24 11:16 e-Cigarette/Vaping Use Former Use 10/03/24 11:16 Are you ready to quit: Yes Tobacco cessation counseling provided: Yes Items discussed: Nicotine replacement Relapse Prevention: discussed the importance of a supportive environment, discussed negative mood or depression after quitting, weight gain after smoking is common and discussed dietary, exercise and/or lifestyle changes PHQ-9: PHQ-9 Score PHQ-9: Total score 8 10/03/24 11:33 Depression Screening Interpretation: Positive Depression Screening Follow-up: Existing condition and In treatment Thrive Assessment: Date of Thrive Assessment Date Thrive assessed 06/30/24 10/03/24 11:16 Currently or been in a relationship where the following occur: No concerns reported Const General: healthy appearing, no acute distress, alert and awake Nutritional Appearance: well nourished Orientation/consciousness: oriented to person, oriented to place and oriented to time HENMT Ears: TM's normal bilaterally General nose exam: Normal nasal mucous membranes and turbinates present Eyes Conjunctivae: conjunctivae normal Sclerae: sclerae normal Pupils: Equal, round and reactive pupils present Neck Neck: Yes no lymphadenopathy and Yes no JVD Thyroid: Thyroid normal Carotids: no bruits Resp Effort & Inspection: normal respiratory effort and not tachypneic Auscultation: no crackles, no rales, no rhonchi and no wheezes Cardio Rate: regular rate Rhythm: regular rhythm Heart sounds: no murmurs and normal S1 and S2 GI Palpation (GI): Soft to palpation, nontender, no hepatomegaly and no splenomegaly Auscultation: normal bowel sounds Skin General skin exam: no rashes or lesions noted and dry skin Neuro General: oriented to person, oriented to place and oriented to time Cranial nerves: Yes Equal, round and reactive pupils present Speech: No Abnormal speech present Gait exam (Neuro): Normal gait present Motor exam (neuro): no tremor noted Extrem Right upper extremity: full ROM Left upper extremity: full ROM Right lower extremity: full ROM; no edema Left lower extremity: full ROM; no edema Psych Mental Status: mental status grossly normal Speech and movement: Normal speech and movement present Affect: normal affect Attitude: cooperative Thought process: Normal thought process present Coding Level of Care Code Est Pt Level 4 (51650) Diagnoses Primary hypertension I10 Hypertension type: primary hypertension Polyarthralgia M25.50 Attention deficit disorder (ADD) without hyperactivity F98.8 Hyperactivity presence: absent Smoker F17.200 Polysubstance abuse F19.10 S/P spinal fusion Z98.1 KEITH (obstructive sleep apnea) G47.33 Class 1 obesity E66.811 Additional Codes PHQ-9 - 49029 - PHQ-9 Billing: Yes ([id number]) FOREIGN-7 Assessment Billing - FOREIGN-7 Assessment Tool: FOREIGN-7 Assessment 60371 ([id number]) Assessment & Plan Assessment & Plan (1) HTN (hypertension): Code(s): I10 - Essential (primary) hypertension Category: Medical Qualifiers: Hypertension type: primary hypertension Qualified Code(s): I10 - Essential (primary) hypertension Plan: Patient's blood pressure acceptable today in office. She continues on lisinopril hydrochlorothiazide with good effect. Goal blood pressure is to remain below 140/90 (2) Polyarthralgia: Code(s): M25.50 - Pain in unspecified joint Category: Medical Plan: Patient reports widespread pain. She has particular pain in her knees, left hip and lower back. She has undergone a spinal fusion in her lower back though feels pain is still similar Widespread pain is concerning for fibromyalgia diagnosis. Has been using gabapentin though has not been effective. Will increase her pregabalin 250 b.i.d. for better pain control. (3) ADD (attention deficit disorder): Code(s): F98.8 - Other specified behavioral and emotional disorders with onset usually occurring in childhood and adolescence Category: Medical Qualifiers: Hyperactivity presence: absent Qualified Code(s): F98.8 - Other specified behavioral and emotional disorders with onset usually occurring in childhood and adolescence Plan: Patient continues Concerta with good effect on her attention and focus. (4) Smoker: Code(s): F17.200 - Nicotine dependence, unspecified, uncomplicated Category: Social Hx Plan: Unfortunately patient has started smoking again and knows she needs to quit smoking as she has COPD. She does have nicotine replacement available to her. Has upcoming appointment with pulmonology. (5) Polysubstance abuse: Code(s): F19.10 - Other psychoactive substance abuse, uncomplicated Category: Medical Plan: Opiate use in remission, has been sober from illicit opiate use over last 2 years. (6) S/P spinal fusion: Code(s): Z98.1 - Arthrodesis status Category: Surgical Plan: As above, Reports having some pain relief though recently fell and now is back in pain. Will increase her pregabalin dose to 150 b.i.d. for pain control. (7) KEITH (obstructive sleep apnea): Code(s): G47.33 - Obstructive sleep apnea (adult) (pediatric) Category: Medical Plan: Recent sleep study inconclusive, did get a in lab sleep study and mentioned she had nocturnal hypoxemia. Likely has obstructive sleep apnea. Will try GLP 1 to help her obstructive sleep apnea and help her lose weight. (8) Class 1 obesity: Code(s): E66.811 - Obesity, class 1 Category: Medical Plan: Patient does understand her BMI is over 30 and has been working on being more physically active and adapting to better eating habits though has not been able to lose much weight. She is willing to start GLP 1 to help her with weight reduction. She does seem to have comorbidity of obstructive sleep apnea. Orders: Orders TSH reflex Free T4 10/03/24 E66.811 - Obesity, class 1 Comprehensive [place]. Panel Fast 10/03/24 I10 - Essential (primary) hypertension Complete Blood Count no Diff 10/03/24 I10 - Essential (primary) hypertension Lipid Panel 10/03/24 E78.9 - Disorder of lipoprotein metabolism, unspecified Medications: New pregabalin 150 mg PO BID 60 caps 3RF 30 days M79.7 - Fibromyalgia tirzepatide (weight loss) (Zepbound) for 4 weeks 2.5 mg (0.5 mL) subcut QWEEK 2 mL 0RF 4 weeks E66.811 - Obesity, class 1, G47.33 - Obstructive sleep apnea (adult) (pediatric) Refilled methylphenidate HCl ER (Concerta) Partial Fill upon patient request. 36 mg PO DAILY 28 tabs 0RF 28 days F98.8 - Other specified behavioral and emotional disorders with onset usually occurring in childhood and adolescence Discontinued pregabalin Discontinued Reason: Doctor's Order 100 mg PO BID 30 days 60 caps 3RF M79.7 - Fibromyalgia
--- OUTSIDE RECORDS SUMMARY | 2024-10-03 12:32 | XMS_ITS | Continuity of Care Document ---
Author Organization [facility] vices Address [address] [place] [address] Phone Care Team Providers Care Line Welder Name Role Phone Unavailable Unavailable Unavailable Allergies, [...] Diagnoses Date Provider Providers Copied on Encounter [facility], [address] [place] [address], [facility], tel:[phone] [facility] Behavioral Health No Information 1 No Information [facility], [address] [place] [address], [facility], tel:[phone] Conversion AXIS V GLOBAL ASSESS OF FUNCTIONING (GAF) SCALE ___ (100-0) 1 No Information [facility], [address] [place] [address], [facility], tel:[phone] Conversion No Information 1 No Information [facility], [address] [place] [address], [facility], tel:[phone] Conversion No Information Feb-0 1-201 1 No Information [facility], [address] [place], [address], [place] tel:[phone] [facility] Behavioral Health No Information Adin-0 5-201 1 No Information GROUP PSYCHOTHERAPY Formerly [facility], [address] [place], [address], [place] tel:[phone] [facility] Behavioral Health No Information Adin-0 3-201 1 No Information GROUP PSYCHOTHERAPY [facility], [address] [place], [address], [place] tel:[phone] [facility] Behavioral Health No Information Dec-2 0-201 0 No Information [facility], [address] [place], [address], [place] tel:[phone] [facility] No Information Dec-1 5-201 0 No Information [facility], [address] [place] [address], [address], [place] tel:[phone] [facility] Behavior[facility] No Information Dec-1 5-201 0 No Information PSYCHOTHERAPY, GROUP [facility], [address] [place] [address], [address], [place] tel:[phone] [facility] Behavioral Health No Information Dec-1 3-201 0 No Information [facility], [address] [place], [address], [place] tel:[phone] [facility] Behavioral Health No Information Dec-0 7-201 0 No Information GROUP PSYCHOTHERAPY [facility], [address] [place] [address], [address], [place] tel:[phone] [facility] Behavior[facility] Health No Information Dec-0 6-201 0 No Information GROUP PSYCHOTHERAPY [facility], [address] [place] [address], [address], [place] tel:[phone] [facility] Behavioral [facility] No Information Nov-2 9-201 0 No Information [facility], [address] [place] [address], [address], [place] tel:[phone] [facility] Behavior[facility] No Information Nov-2 4-201 0 No Information GROUP PSYCHOTHERAPY [facility], [address] [place] [address], [address], [place] tel:[phone] [facility] Behavioral Health No Information Nov-2 2-201 0 No Information [facility], [address] [place], [address], [place] tel:[phone] [facility] Behavior[facility] No Information Nov-1 6-201 0 No Information GROUP PSYCHOTHERAPY [facility], [address] [place] [address], [facility], [place] tel:[phone] [facility] Behavior[facility] No Information Nov-1 5-201 0 No Information [facility], [address] [place] [address], [facility], [place] tel:[phone] [facility] Behavior[facility] No Information Nov-0 9-201 0 No Information GROUP PSYCHOTHERAPY [facility], [address] [place] [address], [address], [place] tel:[phone] [facility] Behavior[facility] No Information Nov-0 8-201 0 No Information [facility], [address] [place] [address], [facility], [place] tel:[phone] [facility] Behavior[facility] No Information Nov-0 4-201 0 No Information GROUP PSYCHOTHERAPY [facility], [address] [place] [address], [facility], [place] tel:[phone] [facility] Behavior[facility] No Information Nov-0 1-201 0 No Information [facility], [address] [place] [address], [address], [place] tel:[phone] [facility] Behavior[facility] No Information Feb-2 9 0 No Information [facility], [address] [place] [address], [address], [place] tel:[phone] [facility] Behavior[facility] No Information Feb-2 6- 0 No Information [facility], [address] [place] [address], [address], [place] tel:[phone] Historic Immunization Location No Information Feb-2 6-201 0 No Information DETAILED OUT/PT [facility], [address] [place] [address], [address], [place] tel:[phone] [facility] Adult Medicine No Information Feb-2 6- 0 No Information [facility], [address] [place] [address], [address], [place] tel:[phone] Conversion No Information Feb-2 5-201 0 No Information [facility], [address] [place] [address], [address], [place] tel:[phone] [facility] Behavioral [facility] No Information Oct-2 5-201 0 No Information [facility], [address] [place] [address], [address], [place] tel:[phone] [facility] Behavior[facility] No Information Oct-2 0-201 0 No Information [facility], [address] [place] [address], [facility], [place] tel:[phone] Conversion No Information Oct-2 0-201 0 No Information [facility], [address] [place] [address], [facility], [place] tel:[phone] [facility] Behavior[facility] No Information Sep-3 0-201 0 No Information [facility], [address] [place] [address], [address], [place] tel:[phone] Conversion ALCOHOL ABUSE Sep-3 0-201 0 No Information [facility], [address] [place] [address], [facility], [place] tel:[phone] Conversion COUNSELING ON SUBSTANCE USE AND ABUSELACK OF PHYSICAL EXERCISE Sep-2 7-201 0 No Information [facility], [address] [place] [address], [facility], [place] tel:[phone] [facility] Behavioral Health No Information Sep-2 0-201 0 No Information [facility], [address] [place] [address], [address], [place] tel:[phone] Conversion No Information Sep-2 0-201 0 No Information [facility], [address] [place] [address], [facility], [place] tel:[phone] [facility] Behavior[facility] No Information Sep-0 9-201 0 No Information [facility], [address] [place] [address], [address], [place] tel:[phone] Conversion NONDEPENDENT ABUSE OF DRUGS, OPIOID ABUSE, EPISODICANXIE TY STATE, UNSPECIFIEDHY POGLYCEMIA UNSPECIFIED, NON-DIABETIC Dec-2 4 0 No Information DETAILED OUT/PT [facility], [address] [place] [address], [address], [place] tel:[phone] [facility] Adult Medicine No Information Dec-2 4 0 No Information [facility], [address] [place] [address], [address], [place] tel:[phone] Conversion No Information 0 No Information [facility], [address] [place], [address], [place] tel:[phone] [facility] Behavioral [facility] No Information 0 No Information [facility], [address] [place] [address], [address], [place] tel:[phone] [facility] Behavioral Health No Information 0 No Information [facility], [address] [place], [address], [place] tel:[phone] [facility] Behavioral Health No Information 0 No Information [facility], [address] [place] [address], [address], [place] tel:[phone] [facility] Behavioral Health No Information 0 No Information [facility], [address] [place] [address], [address], [place] tel:[phone] Conversion REFLUX ESOPHAGITISFA TIGUE/MALAISE NONDEPENDENT ABUSE OF DRUGS, OPIOID ABUSE, IN REMISSION 0 No Information DETAILED OUT/PT [facility], [address] [place], [address], [place] tel:[phone] [facility] Adult Medicine No Information 0 No Information [facility], [address] [place] [address], [address], [place] tel:[phone] Conversion 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 0 No Information [facility], [address] [place] [address], [address], [place] tel:[phone] [facility] Behavioral Health No Information 0 No Information [facility], [address] [place] [address], [address], [place] tel:[phone] [facility] Behavior[facility] Health No Information 0 No Information [facility], [address] [place] [address], [address], [place] tel:[phone] [facility] Behavior[facility] Health No Information 0 No Information [facility], [address] [place] [address], [address], [place] tel:[phone] [facility] Behavioral Health No Information 0 No Information [facility], [address] [place] [address], [address], [place] tel:[phone] Conversion COCAINE DEPENDENCE, EPISODICOSTEO ARTHROSIS, GENERALIZED, SITE UNSPECIFIED 8 0 No Information [facility], [address] [place] [address], [address], [place] tel:[phone] [facility] Adult Medicine No Information 0 No Information [facility], [address] [place] [address], [facility], [place] tel:[phone] Conversion HUMAN IMMUNODEFICIE NCY VIRUS [HIV] DISEASE 0 No Information DETAILED OUT/PT [facility], [address] [place] [address], [facility], [place] tel:[phone] [facility] Adult Medicine No Information 9 No Information [facility], [address] [place] [address], [facility], [place] tel:[phone] Conversion HEPATITIS C (CHRONIC)DELGADO ETT'S ESOPHAGUSOTHE R AND UNSPECIFIED ALCOHOL DEPENDENCE, IN REMISSION 9 No Information DETAILED OUT/PT [facility], [address] [place] [address], [address], [place] tel:[phone] [facility] Adult Medicine No Information 9 No Information [facility], [address] [place] [address], [facility], [place] tel:[phone] Conversion INSOMNIA, UNSPECIFIEDOT HER CHRONIC PAIN 9 No Information [facility], [address] [place] [address], [address], [place] tel:[phone] Conversion CHOLELITHIASI SESOPHAGITIS UNSPECIFIEDMO TTLED TEETHNONDEPEN DENT OTHER MIXED OR UNSPECIFIED DRUG ABUSE IN REMISSION 9 No Information DETAILED OUT/PT [facility], [address] [place] [address], [facility], [place] tel:[phone] [facility] Adult Medicine No Information 9 No Information [facility], [address] [place] [address], [facility], [place] tel:[phone] Conversion HEARTBURNCALC ULUS OF GALLBLADDER WITH OTHER CHOLECYSTITIS WITHOUT OBSTRUCTIONOT HER SPECIFIED ASTHMA 9 No Information DETAILED OUT/PT [facility], [address] [place] [address], [address], [place] tel:[phone] [facility] Adult Medicine No Information 9 No Information [facility], [address] [place] [address], [address], [place] tel:[phone] Conversion ACUTE PAINACUTE CHOLECYSTITIS 9 No Information DETAILED OUT/PT [facility], [address] [place] [address], [address], [place] tel:[phone] [facility] Adult Medicine No Information 9 No Information [facility], [address] [place] [address], [address], [place] tel:[phone] Conversion UNSPECIFIED ESSENTIAL HYPERTENSIONP REMENOPAUSAL MENORRHAGIA 9 No Information DETAILED OUT/PT [facility], [address] [place] [address], [address], [place] tel:[phone] [facility] Adult Medicine No Information 9 No Information [facility], [address] [place] [address], [address], [place] tel:[phone] [facility] Behavioral Health No Information 0 8 No Information [facility], [address] [place] [address], [address], [place] tel:[phone] Conversion ESOPHAGEAL REFLUX 8 No Information DETAILED OUT/PT [facility], [address] [place] [address], [address], [place] tel:[phone] [facility] Adult Medicine No Information 200 8 No Information [facility], [address] [place] [address], [address], [place] tel:[phone] [facility] Behavioral Health No Information Sep-0 9200 8 No Information MINIMAL OUT/PT [facility], [address] [place] [address], [address], [place] tel:[phone] [facility] Adult Medicine No Information Sep-0 2200 8 No Information PREVENTIVE COUNSELING, INDIV [facility], [address] [place] [address], [facility], [place] tel:[phone] [facility] Adult Medicine No Information Aug-0 4-200 8 No Information [facility]ED OUT[facility], [address] [place], [address], [place] tel:[phone] [facility] Adult Medicine No Information Nov-1 4-200 8 No Information [facility], [address] [place] [address], [address], [place] tel:[phone] [facility] Behavior[facility] No Information Nov-0 8-200 8 No Information [facility], [address] [place], [address], [place] tel:[phone] [facility] Behavioral Health No Information Vasyl-2 3-200 8 No Information MINIMAL OUT/PT [facility], [address] [place] [address], [address], [place] tel:[phone] [facility] Adult Medicine No Information Vasyl-1 8-200 8 No Information EXPANDED OUT/PT [facility], [address] [place] [address], [facility], [place] tel:[phone] [facility] Adult Medicine No Information Vasyl-0 7-200 8 No Information [facility], [address] [place] [address], [address], [place] tel:[phone] [facility] Behavior[facility] No Information September-2 2-200 8 No Information MINIMAL OUT/PT [facility], [address] [place] [address], [address], [place] tel:[phone] [facility] Adult Medicine No Information September-1 3-200 8 No Information DETAILED OUT/PT [facility], [address] [place] [address], [address], [place] tel:[phone] [facility] Adult Medicine No Information September-1 2-200 8 No Information [facility], [address] [place] [address], [address], [place] tel:[phone] [facility] Behavioral Health No Information May-0 6-200 8 No Information [facility], [address] [place] [address], [address], [place] tel:[phone] Conversion UNSPECIFIED DRUG DEPENDENCE UNSPECIFIED USE May-0 6-200 8 No Information [facility], [address] [place] [address], [address], [place] tel:[phone] Conversion DIZZINESS AND GIDDINESSANEM IA UNSPECIFIED September-0 5-200 8 No Information DETAILED OUT/PT [facility], [address] [place] [address], [address], [place] tel:[phone] [facility] Adult Medicine No Information May-0 5-200 8 No Information [facility], [address] [place] [address], [address], [place] tel:[phone] [facility] Behavioral Health No Information Apr-2 9-200 8 No Information [facility], [address] [place] [address], [address], [place] tel:[phone] Conversion COMBINATIONS OF DRUG DEPENDENCE EXCLUDING OPIOID TYPE DRUG UNSPECIFIED USE Apr-2 9-200 8 No Information [facility], [address] [place] [address], [address], [place] tel:[phone] Conversion ROUTINE GYNECOLOGICAL EXAMINATION Apr-2 4-200 8 No Information WELL EXAM 40-64 [facility], [address] [place] [address], [address], [place] tel:[phone] [facility] No Information Apr-2 4-200 8 No Information [facility], [address] [place] [address], [address], [place] tel:[phone] [facility] Behavioral Health No Information Apr-2 4-200 8 No Information PREVENTIVE COUNSELING, INDIV [facility], [address] [place] [address], [address], [place] tel:[phone] [facility] Adult Medicine No Information Apr-2 2-200 8 No Information [facility], [address] [place] [address], [address], [place] tel:[phone] [facility] Behavioral Health No Information Apr-0 8-200 8 No Information [facility], [address] [place] [address], [address], [place] tel:[phone] [facility] Behavior[facility] Health No Information Apr-0 3-200 8 No Information DETAILED OUT/PT [facility], [address] [place] [address], [address], [place] tel:[phone] [facility] Adult Medicine No Information Apr-0 2-200 8 No Information [facility], [address] [place] [address], [facility], [place] tel:[phone] [facility] Behavioral Health No Information Jul-2 0-200 8 No Information [facility], [address] [place] [address], [address], [place] tel:[phone] [facility] Behavior[facility] Health No Information Jul- 3-200 8 No Information [facility], [address] [place] [address], [address], [place] tel:[phone] Conversion MAJOR DEPRESSIVE AFFECTIVE DISORDER RECURRENT EPISODE MODERATE DEGREE Feb-2 8-200 8 No Information [facility], [address] [place] [address], [address], [place] tel:[phone] [facility] Behavior[facility] Health No Information Feb-2 8200 8 No Information DETAILED OUT/PT [facility], [address] [place] [address], [facility], [place] tel:[phone] [facility] Adult Medicine No Information Feb-2 7200 8 No Information [facility], [address] [place] [address], [facility], [place] tel:[phone] [facility] Behavior[facility] No Information Jun-2 1200 8 No Information MINIMAL OUT/PT [facility], [address] [place] [address], [address], [place] tel:[phone] [facility] Adult Medicine No Information b-1 8200 8 No Information [facility], [address] [place] [address], [address], [place] tel:[phone] Conversion COCAINE DEPENDENCEMAJ OR DEPRESSION, RECURRENT Feb-0 7200 8 No Information [facility], [address] [place] [address], [address], [place] tel:[phone] [facility] Behavior[facility] Health No Information Feb-0 7200 8 No Information [facility], [address] [place] [address], [address], [place] tel:[phone] Conversion FLU SHOTROUTINE GENERAL MEDICAL EXAMINATION 0200 8 No Information DETAILED OUT/PT [facility], [address] [place] [address], [address], [place] tel:[phone] [facility] Adult Medicine No Information 0 8 No Information DETAILED OUT/PT [facility], [address] [place] [address], [address], [place] tel:[phone] [facility] Adult Medicine No Information 8 No Information [facility], [address] [place] [address], [address], [place] tel:[phone] Conversion ENCOUNTERS FOR UNSPECIFIED ADMINISTRATIV E PURPOSE 8 No Information FOCUSED OUT/PT [facility], [address] [place] [address], [address], [place] tel:[phone] [facility] Adult Medicine No Information 8 No Information EXPANDED OUT/PT [facility], [address] [place] [address], [address], [place] tel:[phone] [facility] Adult Medicine No Information 8 No Information [facility], [address] [place] [address], [address], [place] tel:[phone] Conversion SYMPTOMATIC MENOPAUSAL OR FEMALE CLIMACTERIC STATESUNSPECI FIED VIRAL HEPATITIS CSCREENING EXAMINATION FOR PULMONARY TUBERCULOSIS 8 No Information [facility], [address] [place] [address], [address], [place] tel:[phone] Conversion ALCOHOL DEPENDENCEOPI OID DEPENDENCEDEP RESSIVE DISORDER, NOT ELSEWHERE CLASSIFIED 8 No Information [facility], [address] [place] [address], [address], [place] tel:[phone] [facility] Behavioral Health No Information 8 No Information FOCUSED OUT/PT [facility], [address] [place] [address], [address], [place] tel:[phone] [facility] [facility] No Information 7 No Information DETAILED OUT/PT [facility], [address] [place] [address], [id number], [place] tel:[phone] [facility] Adult Medicine No Information 7 No Information [facility], [address] [place] [address], [id number], [place] tel:[phone] Conversion BRONCHITIS, ACUTE 7 No Information DETAILED OUT/PT [facility], [address] [place] [address], [id number], [place] tel:[phone] [facility] Adult Medicine No Information 7 No Information DETAILED OUT/PT [facility], [address] [place] [address], [id number], [place] tel:[phone] [facility] Adult Medicine No Information 7 No Information [facility], [address] [place] [address], [id number], [place] tel:[phone] Conversion HYPOTHYROIDIS M, UNSPECIFIED AQUIREDHEPATI TIS C WITHOUT MENTION OF HEPATIC COMA 7 No Information EXPANDED OUT/PT [facility], [address] [place] [address], [id number], [place] tel:[phone] [facility] Adult Medicine No Information No Information EXPANDED OUT/PT [facility], [address] [place] [address], [facility], [place] tel:[phone] [facility] Adult Medicine No Information 7 No Information [facility], [address] [place] [address], [facility], [place] tel:[phone] Conversion SCREENING EXAMINATION FOR VENEREAL DISEASETORTIC OLLIS UNSPECIFIED 7 No Information NEW Level 3 - Detailed [facility], [address] [place] [address], [id number], [place] tel:[phone] [facility] Adult Medicine No Information 7 No Information [facility], [address] [place] [address], [facility], [place] tel:[phone] Conversion PNEUMONIA ORGANISM UNSPECIFIEDCO [facility] 7 No [...]
--- OUTSIDE RECORDS SUMMARY | 2024-10-03 12:32 | XMS_ITS | Clinical Summary ---
Author Organization [facility], Address [address] [place] [address] Phone Care Team Providers Care Biometric Technician Name Role Phone Kait Martínez MD Primary Care Provider [phone] Allergies Active Allergy Reactions Criticality Noted Date [...] complete this topic Insurance Medicaid Care Teams Biometric Technician Relationship Specialty Start Date End Date Kait Martínez MD [address] [place], [place] PCP - General Internal Medicine 05/31/24
== END 2024-10-03 12:01 | disposition home or self-care (01) ==
LOC: HO.HMCH 11:03
PROVIDERS: PCP Physician Assistant; Visit Provider Physician Assistant
DX: I10 Essential (primary) hypertension (principal); M25.50 Pain in unspecified joint; F19.10 Other psychoactive substance abuse, uncomplicated; F98.8 Other specified behavioral and emotional disorders with onset usually occurring in childhood and adolescence; F17.200 Nicotine dependence, unspecified, uncomplicated; Z98.1 Arthrodesis status; G47.33 Obstructive sleep apnea (adult) (pediatric); E66.811 Obesity, class 1

== ENCOUNTER → 2024-10-03 11:02 | Outpatient (BNVA) | payer MEDICARE, MEDICAID, SELFPAY | PROVIDERS: PCP Physician Assistant; Visit Provider Physician Assistant | DX: I10 Essential (primary) hypertension (principal); M25.50 Pain in unspecified joint; F98.8 Other specified behavioral and emotional disorders with onset usually occurring in childhood and adolescence; F19.10 Other psychoactive substance abuse, uncomplicated; G47.33 Obstructive sleep apnea (adult) (pediatric); E66.811 Obesity, class 1; Z68.33 Body mass index [BMI] 33.0-33.9, adult; F17.200 Nicotine dependence, unspecified, uncomplicated; Z98.1 Arthrodesis status; Z71.6 Tobacco abuse counseling; Z71.3 Dietary counseling and surveillance | CPT/HCPCS: 96127; 99212 ==

== ENCOUNTER 2024-10-05 12:38 | Outpatient (REF) | payer MEDICARE, MEDICAID, SELFPAY ==
--- OUTSIDE RECORDS SUMMARY | 2024-10-05 13:18 | XMS_ITS | Continuity of Care Document ---
Author Organization [facility] vices Address [address] [place] [address] Phone Care Team Providers [employer] Analyst Name Role Phone Unavailable Unavailable Unavailable Allergies, [...] SPECIMEN HANDLING PSYCHIATRIC MEDICATION M GROUP PSYCHOTHERAPY DRUG SCREEN, QUALITATE/MULTI SPECIMEN HANDLING INDIVIDUAL PSYCH 45-50 M DRUG SCREEN, QUALITATE/MULTI GROUP PSYCHOTHERAPY SPECIMEN HANDLING PSYCHIATRIC MEDICATION M INDIVIDUAL PSYCH 45-50 M FLU VACCINE ADULT (3+ YEARS) DETAILED OUT/PT PSYCHIATRIC MEDICATION M PSYCHIATRIC MEDICATION M INDIVIDUAL PSYCH 45-50 M PSYCHIATRIC MEDICATION M INDIVIDUAL PSYCH 45-50 M DETAILED OUT/PT PSYCHIATRIC MEDICATION M INDIVIDUAL PSYCH 45-50 M INDIVIDUAL PSYCH 45-50 M INDIVIDUAL PSYCH 45-50 M X-RAY HIP (ONE SIDE, COMPLETE) DETAILED OUT/PT X-RAY, LUMBOSACRAL SPINE PSYCHIATRIC MEDICATION M INDIVIDUAL PSYCH 45-50 M [...] M INDIVIDUAL PSYCH 45-50 M DETAILED OUT/PT SPECIMEN HANDLING PSYTX, OFF, 45-50 MIN DRUG SCREEN, QUALITATE/MULTI MINIMAL OUT/PT INDIVIDUAL PSYCH [...] Diagnoses Date Provider Providers Copied on Encounter [facility], [address] [place] [address], [facility], tel:[phone] [facility] No Information No Information [facility], [address] [place] [address], [facility], tel:[phone] Conversion AXIS V GLOBAL ASSESS OF FUNCTIONING (GAF) SCALE ___ (100-0) 1 No Information [facility], [address] [place] [address], [facility], tel:[phone] Conversion No Information 1 No Information [facility], [address] [place] [address], [facility], tel:[phone] Conversion No Information Feb-0 1-201 1 No Information [facility], [address] [place], [address], [place] tel:[phone] [facility] No Information Adin-0 5-201 1 No Information GROUP PSYCHOTHERAPY [facility], [address] [place], [address], [place] tel:[phone] [facility] No Information Adin-0 3-201 1 No Information GROUP PSYCHOTHERAPY [facility], [address] [place], [address], [place] tel:[phone] [facility] No Information Dec-2 0-201 0 No Information [facility], [address] [place], [address], [place] tel:[phone] [facility] No Information Dec-1 5-201 0 No Information [facility], [address] [place] [address], [address], [place] tel:[phone] [facility] No Information Dec-1 5-201 0 No Information PSYCHOTHERAPY, GROUP [facility], [address] [place] [address], [address], [place] tel:[phone] [facility] No Information Dec-1 3-201 0 No Information [facility], [address] [place], [address], [place] tel:[phone] [facility] No Information Dec-0 7-201 0 No Information GROUP PSYCHOTHERAPY [facility], [address] [place] [address], [address], [place] tel:[phone] [facility] No Information Dec-0 6-201 0 No Information GROUP PSYCHOTHERAPY [facility], [address] [place] [address], [address], [place] tel:[phone] [facility] No Information Nov-2 9-201 0 No Information [facility], [address] [place] [address], [address], [place] tel:[phone] [facility] No Information Nov-2 4-201 0 No Information GROUP PSYCHOTHERAPY [facility], [address] [place] [address], [address], [place] tel:[phone] [facility] No Information Nov-2 2-201 0 No Information [facility], [address] [place], [address], [place] tel:[phone] [facility] No Information Nov-1 6-201 0 No Information GROUP PSYCHOTHERAPY [facility], [address] [place] [address], [facility], [place] tel:[phone] [facility] No Information Nov-1 5-201 0 No Information [facility], [address] [place] [address], [facility], [place] tel:[phone] [facility] No Information Nov-0 9-201 0 No Information GROUP PSYCHOTHERAPY [facility], [address] [place] [address], [address], [place] tel:[phone] [facility] No Information Nov-0 8-201 0 No Information [facility], [address] [place] [address], [facility], [place] tel:[phone] [facility] No Information Nov-0 4-201 0 No Information GROUP PSYCHOTHERAPY [facility], [address] [place] [address], [facility], [place] tel:[phone] [facility] No Information Nov-0 1-201 0 No Information [facility], [address] [place] [address], [address], [place] tel:[phone] [facility] No Information Feb-2 9 0 No Information [facility], [address] [place] [address], [address], [place] tel:[phone] [facility] No Information Feb-2 6- 0 No Information [facility], [address] [place] [address], [address], [place] tel:[phone] Historic Immunization Location No Information Feb-2 6-201 0 No Information DETAILED OUT/PT [facility], [address] [place] [address], [address], [place] tel:[phone] [facility] Adult [facility] No Information Feb-2 6- 0 No Information [facility], [address] [place] [address], [address], [place] tel:[phone] Conversion No Information Feb-2 5-201 0 No Information [facility], [address] [place] [address], [address], [place] tel:[phone] [facility] No Information Oct-2 5-201 0 No Information [facility], [address] [place] [address], [address], [place] tel:[phone] [facility] No Information Oct-2 0-201 0 No Information [facility], [address] [place] [address], [facility], [place] tel:[phone] Conversion No Information Oct-2 0-201 0 No Information [facility], [address] [place] [address], [facility], [place] tel:[phone] [facility] No Information Sep-3 0-201 0 No Information [facility], [address] [place] [address], [address], [place] tel:[phone] Conversion ALCOHOL ABUSE Sep-3 0-201 0 No Information [facility], [address] [place] [address], [facility], [place] tel:[phone] Conversion COUNSELING ON SUBSTANCE USE AND ABUSELACK OF PHYSICAL EXERCISE Sep-2 7-201 0 No Information [facility], [address] [place] [address], [facility], [place] tel:[phone] [facility] No Information Sep-2 0-201 0 No Information [facility], [address] [place] [address], [address], [place] tel:[phone] Conversion No Information Sep-2 0-201 0 No Information [facility], [address] [place] [address], [facility], [place] tel:[phone] [facility] No Information Sep-0 9-201 0 No Information [facility], [address] [place] [address], [address], [place] tel:[phone] Conversion NONDEPENDENT ABUSE OF DRUGS, OPIOID ABUSE, EPISODICANXIE TY STATE, UNSPECIFIEDHY POGLYCEMIA UNSPECIFIED, NON-DIABETIC Dec-2 4 0 No Information DETAILED OUT/PT [facility], [address] [place] [address], [address], [place] tel:[phone] [facility] Adult [facility] No Information Dec-2 4 0 No Information [facility], [address] [place] [address], [address], [place] tel:[phone] Conversion No Information 0 No Information [facility], [address] [place], [address], [place] tel:[phone] [facility] No Information 0 No Information [facility], [address] [place] [address], [address], [place] tel:[phone] [facility] No Information 0 No Information [facility], [address] [place], [address], [place] tel:[phone] [facility] No Information 0 No Information [facility], [address] [place] [address], [address], [place] tel:[phone] [facility] No Information 0 No Information [facility], [address] [place] [address], [address], [place] tel:[phone] Conversion REFLUX ESOPHAGITISFA TIGUE/MALAISE NONDEPENDENT ABUSE OF DRUGS, OPIOID ABUSE, IN REMISSION 0 No Information DETAILED OUT/PT [facility], [address] [place], [address], [place] tel:[phone] [facility] No Information 0 No Information [facility], [address] [place] [address], [address], [place] tel:[phone] Conversion 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 0 No Information [facility], [address] [place] [address], [address], [place] tel:[phone] [facility] No Information 0 No Information [facility], [address] [place] [address], [address], [place] tel:[phone] [facility] No Information 0 No Information [facility], [address] [place] [address], [address], [place] tel:[phone] [facility] No Information 0 No Information [facility], [address] [place] [address], [address], [place] tel:[phone] [facility] No Information 0 No Information [facility], [address] [place] [address], [address], [place] tel:[phone] Conversion COCAINE DEPENDENCE, EPISODICOSTEO ARTHROSIS, GENERALIZED, SITE UNSPECIFIED 8 0 No Information [facility], [address] [place] [address], [address], [place] tel:[phone] [facility] No Information 0 No Information [facility], [address] [place] [address], [facility], [place] tel:[phone] Conversion HUMAN IMMUNODEFICIE NCY VIRUS [HIV] DISEASE 0 No Information DETAILED OUT/PT [facility], [address] [place] [address], [facility], [place] tel:[phone] [facility] No Information 9 No Information [facility], [address] [place] [address], [facility], [place] tel:[phone] Conversion HEPATITIS C (CHRONIC)DELGADO ETT'S ESOPHAGUSOTHE R AND UNSPECIFIED ALCOHOL DEPENDENCE, IN REMISSION 9 No Information DETAILED OUT/PT [facility], [address] [place] [address], [address], [place] tel:[phone] [facility] No Information 9 No Information [facility], [address] [place] [address], [facility], [place] tel:[phone] Conversion INSOMNIA, UNSPECIFIEDOT HER CHRONIC PAIN 9 No Information [facility], [address] [place] [address], [address], [place] tel:[phone] Conversion CHOLELITHIASI SESOPHAGITIS UNSPECIFIEDMO TTLED TEETHNONDEPEN DENT OTHER MIXED OR UNSPECIFIED DRUG ABUSE IN REMISSION 9 No Information DETAILED OUT/PT [facility], [address] [place] [address], [facility], [place] tel:[phone] [facility] No Information 9 No Information [facility], [address] [place] [address], [facility], [place] tel:[phone] Conversion HEARTBURNCALC ULUS OF GALLBLADDER WITH OTHER CHOLECYSTITIS WITHOUT OBSTRUCTIONOT HER SPECIFIED ASTHMA 9 No Information DETAILED OUT/PT [facility], [address] [place] [address], [address], [place] tel:[phone] [facility] No Information 9 No Information [facility], [address] [place] [address], [address], [place] tel:[phone] Conversion ACUTE PAINACUTE CHOLECYSTITIS 9 No Information DETAILED OUT/PT [facility], [address] [place] [address], [address], [place] tel:[phone] [facility] No Information 9 No Information [facility], [address] [place] [address], [address], [place] tel:[phone] Conversion UNSPECIFIED ESSENTIAL HYPERTENSIONP REMENOPAUSAL MENORRHAGIA 9 No Information DETAILED OUT/PT [facility], [address] [place] [address], [address], [place] tel:[phone] [facility] No Information 9 No Information [facility], [address] [place] [address], [address], [place] tel:[phone] [facility] No Information 0 8 No Information [facility], [address] [place] [address], [address], [place] tel:[phone] Conversion ESOPHAGEAL REFLUX 8 No Information DETAILED OUT/PT [facility], [address] [place] [address], [address], [place] tel:[phone] [facility] No Information 200 8 No Information [facility], [address] [place] [address], [address], [place] tel:[phone] [facility] No Information Sep-0 9200 8 No Information MINIMAL OUT/PT [facility], [address] [place] [address], [address], [place] tel:[phone] [facility] No Information Sep-0 2200 8 No Information PREVENTIVE COUNSELING, INDIV [facility], [address] [place] [address], [facility], [place] tel:[phone] [facility] No Information Aug-0 4-200 8 No Information [facility]AILED OUT[facility], [address] [place], [address], [place] tel:[phone] [facility] No Information Nov-1 4-200 8 No Information [facility], [address] [place] [address], [address], [place] tel:[phone] [facility] No Information Nov-0 8-200 8 No Information [facility], [address] [place], [address], [place] tel:[phone] [facility] No Information Vasyl-2 3-200 8 No Information MINIMAL OUT/PT [facility], [address] [place] [address], [address], [place] tel:[phone] [facility] No Information Vasyl-1 8-200 8 No Information EXPANDED OUT/PT [facility], [address] [place] [address], [facility], [place] tel:[phone] [facility] No Information Vasyl-0 7-200 8 No Information [facility], [address] [place] [address], [address], [place] tel:[phone] [facility] No Information September-2 2-200 8 No Information MINIMAL OUT/PT [facility], [address] [place] [address], [address], [place] tel:[phone] [facility] No Information September-1 3-200 8 No Information DETAILED OUT/PT [facility], [address] [place] [address], [address], [place] tel:[phone] [facility] No Information September-1 2-200 8 No Information [facility], [address] [place] [address], [address], [place] tel:[phone] [facility] No Information May-0 6-200 8 No Information [facility], [address] [place] [address], [address], [place] tel:[phone] Conversion UNSPECIFIED DRUG DEPENDENCE UNSPECIFIED USE May-0 6-200 8 No Information [facility], [address] [place] [address], [address], [place] tel:[phone] Conversion DIZZINESS AND GIDDINESSANEM [place] UNSPECIFIED September-0 5-200 8 No Information DETAILED OUT/PT [facility], [address] [place] [address], [address], [place] tel:[phone] [facility] No Information May-0 5-200 8 No Information [facility], [address] [place] [address], [address], [place] tel:[phone] [facility] No Information Apr-2 9-200 8 No Information [facility], [address] [place] [address], [address], [place] tel:[phone] Conversion COMBINATIONS OF DRUG DEPENDENCE EXCLUDING OPIOID TYPE DRUG UNSPECIFIED USE Apr-2 9-200 8 No Information [facility], [address] [place] [address], [address], [place] tel:[phone] Conversion ROUTINE GYNECOLOGICAL EXAMINATION Apr-2 4-200 8 No Information WELL EXAM 40-64 [facility], [address] [place] [address], [address], [place] tel:[phone] [facility] No Information Apr-2 4-200 8 No Information [facility], [address] [place] [address], [address], [place] tel:[phone] [facility] No Information Apr-2 4-200 8 No Information PREVENTIVE COUNSELING, INDIV [facility], [address] [place] [address], [address], [place] tel:[phone] [facility] No Information Apr-2 2-200 8 No Information [facility], [address] [place] [address], [address], [place] tel:[phone] [facility] No Information Apr-0 8-200 8 No Information [facility], [address] [place] [address], [address], [place] tel:[phone] [facility] No Information Apr-0 3-200 8 No Information DETAILED OUT/PT [facility], [address] [place] [address], [address], [place] tel:[phone] [facility] No Information Apr-0 2-200 8 No Information [facility], [address] [place] [address], [facility], [place] tel:[phone] [facility] No Information Jul-2 0-200 8 No Information [facility], [address] [place] [address], [address], [place] tel:[phone] [facility] No Information Jul- 3-200 8 No Information [facility], [address] [place] [address], [address], [place] tel:[phone] Conversion MAJOR DEPRESSIVE AFFECTIVE DISORDER RECURRENT EPISODE MODERATE DEGREE Feb-2 8-200 8 No Information [facility], [address] [place] [address], [address], [place] tel:[phone] [facility] No Information Feb-2 8200 8 No Information DETAILED OUT/PT [facility], [address] [place] [address], [facility], [place] tel:[phone] [facility] No Information Feb-2 7200 8 No Information [facility], [address] [place] [address], [facility], [place] tel:[phone] [facility] No Information Jun-2 1200 8 No Information MINIMAL OUT/PT [facility], [address] [place] [address], [address], [place] tel:[phone] [facility] No Information b-1 8200 8 No Information [facility], [address] [place] [address], [address], [place] tel:[phone] Conversion COCAINE DEPENDENCEMAJ OR DEPRESSION, RECURRENT Feb-0 7200 8 No Information [facility], [address] [place] [address], [address], [place] tel:[phone] [facility] No Information Feb-0 7200 8 No Information [facility], [address] [place] [address], [address], [place] tel:[phone] Conversion FLU SHOTROUTINE GENERAL MEDICAL EXAMINATION 0200 8 No Information DETAILED OUT/PT [facility], [address] [place] [address], [address], [place] tel:[phone] [facility] No Information 0 8 No Information DETAILED OUT/PT [facility], [address] [place] [address], [address], [place] tel:[phone] [facility] No Information 8 No Information [facility], [address] [place] [address], [address], [place] tel:[phone] Conversion ENCOUNTERS FOR UNSPECIFIED ADMINISTRATIV E PURPOSE 8 No Information FOCUSED OUT/PT [facility], [address] [place] [address], [address], [place] tel:[phone] [facility] Adult [facility] No Information 8 No Information EXPANDED OUT/PT [facility], [address] [place] [address], [address], [place] tel:[phone] [facility] No Information 8 No Information [facility], [address] [place] [address], [address], [place] tel:[phone] Conversion SYMPTOMATIC MENOPAUSAL OR FEMALE CLIMACTERIC STATESUNSPECI FIED VIRAL HEPATITIS CSCREENING EXAMINATION FOR PULMONARY TUBERCULOSIS 8 No Information [facility], [address] [place] [address], [address], [place] tel:[phone] Conversion ALCOHOL DEPENDENCEOPI OID DEPENDENCEDEP RESSIVE DISORDER, NOT ELSEWHERE CLASSIFIED 8 No Information [facility], [address] [place] [address], [address], [place] tel:[phone] [facility] Behavioral Health No Information 8 No Information FOCUSED OUT/PT [facility], [address] [place] [address], [address], [place] tel:[phone] [facility] Adult Medicine No Information 7 No Information DETAILED OUT/PT [facility], [address] [place] [address], [address], [place] tel:[phone] [facility] Adult Medicine No Information 7 No Information [facility], [address] [place] [address], [address], [place] tel:[phone] Conversion BRONCHITIS, ACUTE 7 No Information DETAILED OUT/PT [facility], [address] [place] [address], [address], [place] tel:[phone] [facility] Adult Medicine No Information 7 No Information DETAILED OUT/PT [facility], [address] [place] [address], [address], [place] tel:[phone] [facility] Adult Medicine No Information 7 No Information [facility], [address] [place] [address], [address], [place] tel:[phone] Conversion HYPOTHYROIDIS M, UNSPECIFIED AQUIREDHEPATI TIS C WITHOUT MENTION OF HEPATIC COMA 7 No Information EXPANDED OUT/PT [facility], [address] [place] [address], [address], [place] tel:[phone] [facility] Adult Medicine No Information No Information EXPANDED OUT/PT [facility], [address] [place] [address], [facility], [place] tel:[phone] [facility] Adult Medicine No Information 7 No Information [facility], [address] [place] [address], [facility], [place] tel:[phone] Conversion SCREENING EXAMINATION FOR VENEREAL DISEASETORTIC OLLIS UNSPECIFIED 7 No Information NEW Level 3 - Detailed [facility], [address] [place] [address], [address], [place] tel:[phone] [facility] Adult Medicine No Information 7 No Information [facility], [address] [place] [address], [facility], [place] tel:[phone] Conversion PNEUMONIA ORGANISM UNSPECIFIEDCO [facility] 7 No [...]
--- OUTSIDE RECORDS SUMMARY | 2024-10-05 13:18 | XMS_ITS | Clinical Summary ---
Author Organization [facility], Address [address] [place] [address] Phone Care Team Providers Care Vice President Financial Name Role Phone Kait Martínez MD Primary Care Provider [phone] Allergies Active Allergy Reactions Criticality Noted Date [...] complete this topic Insurance Medicaid Care Teams Vice President Financial Relationship Specialty Start Date End Date Kait Martínez MD [address] [place], [place] PCP - General Internal Medicine 05/31/24
[2024-10-05 14:12] LABS: Hematocrit 39.1 % (37.0-47.0); Mean Corpuscular HGB Conc 33.2 g/dl (31.0-35.0); Mean Corpuscular Hemoglobin 28.5 pg (27.0-33.0); Mean Corpuscular Volume 85.7 fL (80.0-98.0); Mean Platelet Volume 11.2 fL (9.4-12.3); Platelet Count 183 X10*3/uL (160-400); Red Blood Count 4.56 X10*6/uL (4.20-5.50); Red Cell Distribution Width 15.4 % (11.0-16.0); White Blood Count 9.9 X10*3/uL (4.8-10.8)
[2024-10-05 14:42] LABS: Alanine Aminotransferase 14 U/L (0-31); Albumin Level 4.1 g/dL (3.5-5.0); Anion Gap 14 (12-20); Aspartate Amino Transferase 28 U/L (5-31); Bilirubin Total 0.2 mg/dL (0.0-1.0); Blood Urea Nitrogen 14 mg/dL (9-16); Calcium 9.2 mg/dL (8.4-10.2); Carbon Dioxide 28 mmol/L (22-29); Chloride 103 mmol/L (96-108); Cholesterol 212 mg/dL (<200); Estimated Glomerular Filt Rate > 60; Glucose Fasting 86 mg/dL (60-99); HDL Cholesterol 42 mg/dL (>40); LDL Cholesterol Calculated 148 mg/dL (<100); Potassium 4.4 mmol/L (3.3-5.1); Sodium 141 mmol/L (135-145); Total Protein 7.1 g/dL (6.5-8.0); Triglycerides 113 mg/dL (<150)
[2024-10-05 15:02] LABS: TSH reflex Free T4 3.61 uIU/mL (0.32-4.0)
[2024-10-05 15:59] LABS: Alkaline Phosphatase 111 U/L (39-117)
== END 2024-10-05 12:39 | disposition home or self-care (01) ==
LOC: HO.LAB 12:38
PROVIDERS: PCP Physician Assistant; Visit Provider Physician Assistant
DX: I10 Essential (primary) hypertension (principal); E66.811 Obesity, class 1; E78.9 Disorder of lipoprotein metabolism, unspecified
CPT/HCPCS: 36415; 80053; 80061; 84443; 85027

== ENCOUNTER 2024-11-29 10:11 | Outpatient (AMB) | payer MEDICARE, SELFPAY ==
--- NOTE | 2024-11-29 10:20 | MHC.PC.OV ---
Vital Signs 11/29/24 10:22 Height 5 ft 4 in Weight 187 lb 2 oz BMI 32.1 BP 122/72 Blood Pressure Location Lt brachial Position Sitting Pulse 64 Pulse Source Pulse Oximeter Temp 97.1 F Temp Source Temporal Artery Scan Pulse Oximetry (%) 95 Oxygen Delivery Method Room Air Intake Visit Reasons: 6 weeks Public Health Microbiologist Required: No Accompanied by: Self / Same As Patient Allergies Penicillins (PENICILLINS) Allergy (Intermediate, Verified 11/29/24 10:50) RASH (CHILDHOOD ALLERGY) Medication List - Last Reconciled 11/29/24 by Amari Mckeon PA-C albuterol sulfate 90 mcg/actuation (Ventolin HFA) 1 puff inhalation Q4H PRN atorvastatin 10 mg PO DAILY 90 days bisacodyl (Dulcolax (bisacodyl)) 5 mg PO DAILY buprenorphine-naloxone 8-2 mg (Suboxone) 1 strip sublingual DAILY Held on 06/21/24. Instructions: Resume on 06/26/24. Resume when Oxycodone prescription is complete. Do not take in conjunction with Oxycodone. cane As directed clonazepam 1 mg PO BEDTIME 30 days clonidine HCl 0.2 mg PO BEDTIME 90 days fluoxetine 60 mg (3 x 20 mg) PO DAILY fluticasone furoate 200 mcg/actuation (Arnuity Ellipta) inhalation DAILY hydroxyzine HCl 50 mg PO BEDTIME 30 days ibuprofen 800 mg PO DAILY PRN lidocaine 5% 1 patch topical DAILY 30 days lisinopril-hydrochlorothiazide 10-12.5 mg 1 tab PO DAILY 90 days methocarbamol 750 mg PO BID PRN 60 days methylphenidate HCl ER (Concerta) 36 mg PO DAILY 28 days naproxen 500 mg PO Q12H PRN nebulizers As directed omeprazole 40 mg PO DAILY polyethylene glycol 3350 (Miralax) 17 grams PO BID pregabalin 150 mg PO BID 30 days propranolol 10 mg PO BID PRN 30 days trazodone 100 mg PO BEDTIME 90 days umeclidinium-vilanterol 62.5-25 mcg/actuation (Anoro Ellipta) 1 inh inhalation DAILY vitamin B complex 1 tab PO DAILY Tobacco use date assessed: 06/30/24 Dental Screening Dental Screen Date: 06/30/24 HPI 6 weeks HPI Details The patient is a 64-year-old female presenting with constipation, diarrhea, and back pain. The constipation began after surgery, with episodes of not having a bowel movement for up to five days, leading to the use of laxatives such as MiraLax and others provided by her sister. Despite these interventions, she experienced severe bloating and discomfort, which she attempted to alleviate with increased laxative use, resulting in diarrhea. The diarrhea is characterized by yellow, stringy stools, and has been severe enough to cause incontinence, with the patient unable to reach the toilet in time. This condition has been ongoing for about a week, exacerbated by the use of laxatives. The patient reports back pain that is worse than before her surgery, with sharp pains and a feeling that the surgery did not alleviate her symptoms. She expresses frustration and emotional distress due to the persistent pain. The patient has a history of hypoxemia, noted during a sleep study where oxygen supplementation was required. She has been advised to stop smoking, which she has attempted, but relapsed after two weeks. The patient has a history of hepatitis C, for which she received treatment and is currently undetected for the virus. She is also dealing with obesity, which she attributes to her current health issues, including hypoxemia and back pain. [facility] Medical History Arthritis Degenerative disc disease, lumbar Back pain Fibromyalgia Thrombocytopenia Constipation Hiatal hernia Hepatitis C Sleep apnea Tremor of both hands Forgetfulness ADHD SOB (shortness of breath) Wheezing Bronchitis COPD (chronic obstructive pulmonary disease) Hypersomnia Snoring Saccular aneurysm Pulmonary embolism SARS-CoV-2 positive Opioid abuse Alcohol use disorder, severe, dependence Ganglion cyst Obese Tubular adenoma of colon Otitis externa RUQ abdominal pain GERD (gastroesophageal reflux disease) Acute anxiety Depression Insomnia Surgical History Hx of unilateral oophorectomy Hx of appendectomy History of surgery on right wrist Hx of shoulder surgery History of esophagogastroduodenoscopy (EGD) Hx of colonoscopy Previous back surgery Family History Father Alzheimer disease Mother Stroke Brother Esophageal cancer Other Mental problem Substance abuse Social History Household Members: Significant Other Household Members Other:: fiancee Housing: Apartment Are you a primary assisted living care manager to a significant other at home: No Do you presently have visiting nurse or other home services: No Alcohol intake: current Alcohol intake frequency: does not drink Alcohol type: hard liquor Tobacco use type: Cigarette Cigarettes Per Day: 10 Years Smoked: 40 Packs per year/per ci.00 e-Cigarette/Vaping Use: Former Use Second Hand Smoke Exposure: Yes Substance Use Type: Marijuana Advance Directives Date on File: 03/17/22 service: No Current occupational status: employed 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[employer], 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 Sexual orientation: Straight/Heterosexual Cognitive needs: Yes (cane) Hearing needs: No Vision needs: Yes (Glasses) Questionnaire Thrive Questionnaire Date Thrive assessed: 10/03/24 I am a: Patient What is your living situation today?: I have a steady place to live Within the past 12 months, did the food you bought not last and you didn't have the money to get more?: Sometimes True Within the past 12 months, did you worry whether your food would run out before you got money to buy more?: Often true Do you have trouble paying for medicines?: No Do you have trouble getting transportation to medical appointments?: No Do you have trouble paying your heating and electricity bill?: No Do you have trouble taking care of your child, family member or friend?: No Do you have trouble with day-to-day activities such as bathing, preparing meals, shopping, managing finances, etc.?: No Are you currently unemployed and looking for a job?: Yes Are you interested in more education?: Yes Please select the resources that you would like help with: Care for elder or disabled Currently or been in a relationship where the following occur: No concerns reported THRIVE Score: 2 FOREIGN-7 AMB Questionnaire FOREIGN-7 Date FOREIGN - 7 assessed: 06/30/24 Source: Developed by Drs. Dannie Sandoval, Kathryn Bryant, Felipe Paulson and colleagues, with an educational rupal from [employer]. Review of Systems Const Denies headache(s) Eyes Denies loss of vision ENT Denies vertigo, Denies dizziness, Denies headache(s) and Denies sore throat Card Denies chest pain, Denies leg edema and Denies lightheadedness Resp Denies cough, Denies hemoptysis and Denies wheezing GI Denies abdominal pain, Denies melena, Denies constipation, Denies diarrhea and Denies vomiting Denies urinary frequency, Denies dysuria and Denies urinary urgency Musc Denies arthralgias, Denies joint swelling, Denies numbness and Denies tingling Neuro Denies Abnormal speech present, Denies behavioral changes, Denies vertigo, Denies dizziness, Denies headache(s), Denies loss of vision, Denies memory loss, Denies numbness and Denies tingling Psych Denies anxiety, Denies behavioral changes, Denies depression, Denies memory loss and Denies panic attacks Rizwan/Lymph Denies easy bleeding and Denies easy bruising Aller/Immun Denies wheezing Physical exam (Primary Care) Vital Signs: Last Vital Signs Temp 97.1 F 11/29/24 10:22 Pulse 64 11/29/24 10:22 BP 122/72 11/29/24 10:22 Pulse Ox 95 11/29/24 10:22 Oxygen Delivery Method Room Air 11/29/24 10:22 BMI result Body Mass Index 32.1 BMI Assessment/Plan discussion: High BMI High, discussed plan: lifestyle, weight reduction, dietary and physical activity Tobacco/Smoking Status: Tobacco use Status Tobacco use date assessed 06/30/24 11/29/24 10:22 Patient Tobacco Use Status Former Tobacco user 06/30/24 15:52 Tobacco use type Cigarette 11/29/24 10:22 e-Cigarette/Vaping Use Former Use 11/29/24 10:22 Thrive Assessment: Date of Thrive Assessment Date Thrive assessed 10/03/24 11/29/24 10:22 Currently or been in a relationship where the following occur: No concerns reported Const General: healthy appearing, no acute distress, alert and awake Nutritional Appearance: well nourished Orientation/consciousness: oriented to person, oriented to place and oriented to time HENMT Ears: TM's normal bilaterally General nose exam: Normal nasal mucous membranes and turbinates present Eyes Conjunctivae: conjunctivae normal Sclerae: sclerae normal Pupils: Equal, round and reactive pupils present Neck Neck: Yes no lymphadenopathy and Yes no JVD Thyroid: Thyroid normal Carotids: no bruits Resp Effort & Inspection: normal respiratory effort and not tachypneic Auscultation: no crackles, no rales, no rhonchi and no wheezes Cardio Rate: regular rate Rhythm: regular rhythm Heart sounds: no murmurs and normal S1 and S2 GI Palpation (GI): Soft to palpation, nontender, no hepatomegaly and no splenomegaly Auscultation: normal bowel sounds Skin General skin exam: no rashes or lesions noted and dry skin Neuro General: oriented to person, oriented to place and oriented to time Cranial nerves: Yes Equal, round and reactive pupils present Speech: No Abnormal speech present Gait exam (Neuro): Normal gait present Motor exam (neuro): no tremor noted Extrem Right upper extremity: full ROM Left upper extremity: full ROM Right lower extremity: full ROM; no edema Left lower extremity: full ROM; no edema Psych Mental Status: mental status grossly normal Speech and movement: Normal speech and movement present Affect: normal affect Attitude: cooperative Thought process: Normal thought process present Coding Level of Care Code Est Pt Level 4 (95784) Diagnoses Constipation, unspecified constipation type K59.00 Constipation type: unspecified constipation type Functional diarrhea K59.1 Diarrhea type: functional diarrhea Class 1 obesity E66.811 Assessment & Plan Assessment & Plan (1) Constipation: Code(s): K59.00 - Constipation, unspecified Category: Medical Qualifiers: Constipation type: unspecified constipation type Qualified Code(s): K59.00 - Constipation, unspecified Plan: The plan for constipation includes considering an abdominal x-ray to rule out partial obstruction and blood work to assess liver and kidney function. The patient is advised to adjust laxative use and consider incorporating probiotics or fiber supplements to regulate bowel movements. (2) Diarrhea: Code(s): R19.7 - Diarrhea, unspecified Category: Medical Qualifiers: Diarrhea type: functional diarrhea Qualified Code(s): K59.1 - Functional diarrhea Plan: Reporting recent soft do and diarrhea after taking consistent laxatives. Advised to real back in the laxatives and use stool bulking agent and probiotic. (3) Class 1 obesity: Code(s): E66.811 - Obesity, class 1 Category: Medical Plan: Patient does understand her BMI is over 30 and has been working on being more physically active and adapting to better eating habits though has not been able to lose much weight. Unfortunately insurance not covering GLP 1. She is willing to try oral phentermine temporarily to help her lose weight. She is willing to be referred to the weight management program for continued management of her weight. She does understand she needs to hold her Concerta during the time she is using the phentermine as they are both stimulant , patient agrees and understands the plan Orders: Orders Comprehensive Met. Panel Today K59.00 - Constipation, unspecified XR abdomen 3V Today K59.00 - Constipation, unspecified Complete Blood Count no Diff Today K59.00 - Constipation, unspecified Hepatitis C Viral Load Today K59.00 - Constipation, unspecified, R19.7 - Diarrhea, unspecified Referrals Medical Weight Management Referral E66.811 - Obesity, class 1
[2024-11-29 10:22] VITALS: BP 122/72; PULSE 64; TEMP 36.2; O2SAT 95; BMI 32.1
--- OUTSIDE RECORDS SUMMARY | 2024-11-29 10:55 | XMS_ITS | Clinical Summary ---
Author Organization [facility], Address [address] [place] [address] Phone Care Team Providers Care Aerial Lineman Name Role Phone Kait Martínez MD Primary Care Provider Allergies Active Allergy Reactions Criticality Noted Date [...] of 1 - PCV) 10/22/2009 Influenza Vaccine (#1) 2025 Hepatitis B Vaccine Aged Out No longe r eligible based on patient's age to complete this topic Insurance Medicaid Care Teams Aerial Lineman Relationship Specialty Start Date End Date Kait Martínez MD [address] [place], [place] PCP - General Internal Medicine 05/31/24
== END 2024-11-29 11:26 | disposition home or self-care (01) ==
LOC: HO.HMCH 10:11
PROVIDERS: PCP Physician Assistant; Visit Provider Physician Assistant
DX: K59.00 Constipation, unspecified (principal); K59.1 Functional diarrhea; E66.811 Obesity, class 1; Z68.32 Body mass index [BMI] 32.0-32.9, adult

== ENCOUNTER → 2024-11-29 10:11 | Outpatient (BNVA) | payer MEDICARE, SELFPAY | PROVIDERS: PCP Physician Assistant; Visit Provider Physician Assistant | DX: K59.00 Constipation, unspecified (principal); K59.1 Functional diarrhea; E66.811 Obesity, class 1; Z68.32 Body mass index [BMI] 32.0-32.9, adult; Z71.3 Dietary counseling and surveillance; Z87.891 Personal history of nicotine dependence | CPT/HCPCS: 99212 ==

== ENCOUNTER 2024-12-05 12:02 | Outpatient (REF) | payer MEDICARE, SELFPAY ==
--- NOTE | ~2024-12-05 | XR_ITS ---
EXAMINATION: XR ABDOMEN 2 VIEWS SUPINE ERECT HISTORY: K59.00 - Constipation, unspecified COMPARISON: Comparison is made with the prior examination dated 06/20/2024. FINDINGS: Supine and upright views of the abdomen are submitted. There are scattered air/fluid levels in the colon. The bowel gas pattern is otherwise unremarkable. There is a small to moderate amount of stool throughout the colon. No abnormal calcifications are identified. There are no abnormal soft tissue masses. The patient is status post lower lumbar fusion. XR/XR abdomen min 2V IMPRESSION: Small to moderate amount of stool throughout the colon. Electronically signed by: Dannie Gallo MD 12/05/2024 12:44 PM EDT
--- OUTSIDE RECORDS SUMMARY | 2024-12-05 13:20 | XMS_ITS | Clinical Summary ---
Author Organization [facility], Address [address] [place] [address] Phone Care Team Providers Care Humane Officer Name Role Phone Kait Martínez MD Primary Care Provider [phone] Allergies Active Allergy Reactions Criticality Noted Date [...] complete this topic Insurance Medicaid Care Teams Humane Officer Relationship Specialty Start Date End Date Kait Martínez MD [address] [place], [place] PCP - General Internal Medicine 05/31/24
[2024-12-05 13:26] LABS: Hematocrit 38.0 % (37.0-47.0); Hemoglobin 13.0 g/dl (12.0-16.0); Mean Corpuscular HGB Conc 34.2 g/dl (31.0-35.0); Mean Corpuscular Hemoglobin 28.7 pg (27.0-33.0); Mean Corpuscular Volume 83.9 fL (80.0-98.0); NRBC Abs Auto 0.000 X10*3/uL (0.0-0.012); NRBC Pct Auto 0.0 /100WBC (0.0-0.2); Platelet Count 190 X10*3/uL (160-400); Red Blood Count 4.53 X10*6/uL (4.20-5.50); White Blood Count 10.9 X10*3/uL (4.8-10.8)
[2024-12-05 14:00] LABS: Alanine Aminotransferase 15 U/L (0-31); Albumin Level 4.3 g/dL (3.5-5.0); Alkaline Phosphatase 90 U/L (39-117); Anion Gap 10 (12-20); Aspartate Amino Transferase 25 U/L (5-31); Blood Urea Nitrogen 12 mg/dL (9-16); Calcium 8.8 mg/dL (8.4-10.2); Carbon Dioxide 27 mmol/L (22-29); Chloride 105 mmol/L (96-108); Estimated Glomerular Filt Rate > 60; Potassium 4.2 mmol/L (3.3-5.1); Sodium 138 mmol/L (135-145); Total Protein 7.2 g/dL (6.5-8.0)
[2024-12-07 12:59] LABS: HCV Log PCR <1.18 NOT DETECTED Log IU/mL (NOT DETECTED); HepC Viral Load <15 NOT DETECTED IU/mL (NOT DETECTED)
== END 2024-12-05 12:03 | disposition home or self-care (01) ==
LOC: HO.LAB 12:02
PROVIDERS: PCP Physician Assistant; Visit Provider Physician Assistant
DX: K59.00 Constipation, unspecified (principal)
CPT/HCPCS: 36415; 74019; 80053; 85027; 87522

== ENCOUNTER → 2024-12-05 12:12 | Outpatient (BNV) | payer MEDICARE, SELFPAY | PROVIDERS: PCP Physician Assistant; Visit Provider Radiology Diagnostic Radiology | DX: K56.41 Fecal impaction (principal) | CPT/HCPCS: 74019 ==

== ENCOUNTER 2025-02-09 11:16 | Outpatient (REF) | payer MEDICARE, SELFPAY ==
--- NOTE | ~2025-02-09 | XR_ITS ---
EXAMINATION: XR LUMBAR SPINE 4 OR MORE VIEWS HISTORY: Z98.1 - Arthrodesis status COMPARISON: Comparison is made with the prior examination dated 09/07/2024. FINDINGS: AP, and neutral, flexion, and extension lateral views of the lumbar spine are submitted. Osseous mineralization is normal. The patient is again noted to be status post placement of disc prostheses at L4-5 and L5-S1. There is moderate degenerative disc disease with disc space narrowing and osteophyte formation. There is osteoarthritis of the facet joints. There is no abnormal motion with flexion or extension. There is calcification of the abdominal aorta. XR/XR lumbar spine 4V min IMPRESSION: Disc prosthesis at L4-5 and L5-S1. No abnormal motion with flexion or extension. Electronically signed by: Dannie Gallo MD 02/09/2025 01:14 PM EDT
--- NOTE | ~2025-02-09 | XR_ITS ---
EXAM: 4 view cervical spine x-ray TECHNIQUE: AP, and lateral: Flexion, neutral, and extension view x-rays of the cervical spine. INDICATION: Cervicalgia PRIOR: None FINDINGS: There is mild reversal of the normal cervical lordosis. No fractures are identified. There is no prevertebral soft tissue swelling. C2-3: Unremarkable. C3-4: There is grade 1 anterolisthesis without instability. There is facet sclerosis and joint space narrowing. C4-5: There is subtle retrolisthesis without instability. C5-6: There is moderate disc space narrowing with endplate osteophytes and sclerosis. There is grade 1 retrolisthesis without instability. C6-7: There is moderate disc space narrowing with endplate osteophytes. XR/XR cervical spine 4V IMPRESSION: There is mild reversal of cervical lordosis. This can be related to degenerative changes, positioning, muscle spasm, or posterior soft tissue injury. Multilevel degenerative changes are most advanced at C5-6 and C6-7. Electronically signed by: Gibson Tejada MD 02/09/2025 01:20 PM EDT
--- OUTSIDE RECORDS SUMMARY | 2025-02-09 12:29 | XMS_ITS | Clinical Summary ---
Author Organization [facility], Address [address] [place] [address] Phone Care Team Providers Care Radio Tester Name Role Phone Kait Martínez MD Primary Care Provider [phone] Allergies Active Allergy Reactions Criticality Noted Date [...] complete this topic Insurance Medicaid Care Teams Radio Tester Relationship Specialty Start Date End Date Kait Martínez MD [address] [place], [place] PCP - General Internal Medicine 05/31/24
== END 2025-02-09 11:17 | disposition home or self-care (01) ==
LOC: HO.HOSX 11:16
PROVIDERS: PCP Physician Assistant; Visit Provider Physician Assistant
DX: M50.323 Other cervical disc degeneration at C6-C7 level (principal); Z98.1 Arthrodesis status
CPT/HCPCS: 72050; 72110; 99212

== ENCOUNTER 2025-02-09 11:16 | Outpatient (AMB) | payer MEDICARE, MEDICAID, SELFPAY ==
--- OUTSIDE RECORDS SUMMARY | 2010-08-01 20:00 | XMS_ITS | Continuity of Care Document ---
Author Organization Pending Sale To [facility] vices Address [address] [place] [address] Phone Care Team Providers Care [employer] Process Worker Name Role Phone Unavailable Unavailable Unavailable [...] M INDIVIDUAL PSYCH 45-50 M DETAILED OUT/PT DRUG SCREEN, QUALITATE/MULTI SPECIMEN HANDLING PSYTX, OFF, 45-50 MIN MINIMAL OUT/PT INDIVIDUAL PSYCH 45-50 M EYE EXAM ESTABLISHED PAT ELECTROCARDIOGRAM, COMPL URINALYSIS, NON-AUTOMATE DETAILED OUT/PT DETAILED OUT/PT FOCUSED OUT/PT EXPANDED OUT/PT PSYCHIATRIC DIAGNOSTIC E PREVENTIVE COUNSELING, INDIV FOCUSED OUT/PT DETAILED OUT/PT DETAILED OUT/PT DETAILED OUT/PT EXPANDED OUT/PT EXPANDED OUT/PT STREP, GRP A DIRECT PROB NEW Level 3 - Detailed Advance Directives Directive Yes / No Effective Date File Name No Information Encounters Encounter Description Practice Location Reason(s) For Visit Diagnoses Date Provider Providers Copied on Encounter [facility], [address] [place] [address], [facility], tel:[phone] [facility] No Information No Information [facility], [address] [place] [address], [facility], tel:[phone] Conversion AXIS V GLOBAL ASSESS OF FUNCTIONING (GAF) SCALE ___ (100-0) 1 No Information [facility], [address] [place] [address], [facility], tel:[phone] Conversion No Information 1 No Information [facility], [address] [place] [address], [facility], tel:[phone] Conversion No Information Feb-0 1-201 1 No Information [facility], [address] [place], [address], [place] tel:[phone] [facility] No Information Adin-0 5-201 1 No Information GROUP PSYCHOTHERAPY [facility], [address] [place], [address], [place] tel:[phone] [facility] No Information Adin-0 3-201 1 No Information GROUP PSYCHOTHERAPY [facility], [address] [place], [address], [place] tel:[phone] [facility] No Information Dec-2 0-201 0 No Information [facility]ly [facility], [facility], [address] [place], [address], [place] tel:[phone] [facility] No Information Dec-1 5-201 0 No Information [facility], [address] [place] [address], [address], [place] tel:[phone] [facility] No Information Dec-1 5-201 0 No Information PSYCHOTHERAPY, GROUP [facility], [address] [place] [address], [address], [place] tel:[phone] [facility] No Information Dec-1 3-201 0 No Information [facility], [facility], [address] [place], [address], [place] tel:[phone] [facility] No Information Dec-0 7-201 0 No Information GROUP PSYCHOTHERAPY [facility], [address] [place] [address], [address], [place] tel:[phone] [facility] No Information Dec-0 6-201 0 No Information GROUP PSYCHOTHERAPY [facility], [address] [place] [address], [address], [place] tel:[phone] [facility] No Information Nov-2 9-201 0 No Information [facility], [facility], [address] [place] [address], [address], [place] tel:[phone] [facility] No Information Nov-2 4-201 0 No Information GROUP PSYCHOTHERAPY [facility], [address] [place] [address], [address], [place] tel:[phone] [facility] No Information Nov-2 2-201 0 No Information [facility], [facility], [address] [place], [address], [place] tel:[phone] [facility] No Information Nov-1 6-201 0 No Information GROUP PSYCHOTHERAPY [facility], [facility], [address] [place] [address], [facility], [place] tel:[phone] [facility] No Information Nov-1 5-201 0 No Information [facility], [facility], [address] [place] [address], [facility], [place] tel:[phone] [facility] No Information Nov-0 9-201 0 No Information GROUP PSYCHOTHERAPY Former[facility], [facility], [address] [place] [address], [address], [place] tel:[phone] [facility] No Information Nov-0 8-201 0 No Information [facility], [facility], [address] [place] [address], [facility], [place] tel:[phone] [facility] No Information Nov-0 4-201 0 No Information GROUP PSYCHOTHERAPY [facility]ly [facility], [facility], [address] [place] [address], [facility], [place] tel:[phone] [facility] No Information Nov-0 1-201 0 No Information [facility]ly [facility], [facility], [address] [place] [address], [address], [place] tel:[phone] [facility] No Information Feb-2 9 0 No Information [facility], [facility], [address] [place] [address], [address], [place] tel:[phone] [facility] No Information Feb-2 6- 0 No Information [facility], [facility], [address] [place] [address], [address], [place] tel:[phone] Historic Immunization Location No Information Feb-2 6-201 0 No Information DETAILED OUT/PT [facility]ly [facility], [facility], [address] [place] [address], [address], [place] tel:[phone] [facility] Adult Medicine No Information Feb-2 6- 0 No Information [facility], [facility], [address] [place] [address], [address], [place] tel:[phone] Conversion No Information Feb-2 5-201 0 No Information [facility], [facility], [address] [place] [address], [address], [place] tel:[phone] [facility] No Information Oct-2 5-201 0 No Information [facility], [address] [place] [address], [address], [place] tel:[phone] Conversion No Information Oct-2 0-201 0 No Information [facility], [address] [place] [address], [address], [place] tel:[phone] [facility] No Information Oct-2 0-201 0 No Information [facility], [facility], [address] [place] [address], [address], [place] tel:[phone] [facility] No Information Sep-3 0-201 0 No Information [facility], [address] [place] [address], [address], [place] tel:[phone] Conversion ALCOHOL ABUSE Sep-3 0-201 0 No Information [facility], [address] [place] [address], [address], [place] tel:[phone] Conversion COUNSELING ON SUBSTANCE USE AND ABUSELACK OF PHYSICAL EXERCISE Sep-2 7-201 0 No Information [facility], [address] [place] [address], [address], [place] tel:[phone] [facility] No Information Sep-2 0-201 0 No Information [facility], [address] [place] [address], [address], [place] tel:[phone] Conversion No Information Sep-2 0-201 0 No Information [facility], [address] [place] [address], [address], [place] tel:[phone] [facility] No Information Sep-0 9-201 0 No Information DETAILED OUT/PT [facility], [address] [place] [address], [address], [place] tel:[phone] [facility] Adult [facility] No Information Dec-2 4 0 No Information [facility], [address] [place] [address], [address], [place] tel:[phone] Conversion No Information Aug-2 4-201 0 No Information [facility], [address] [place] [address], [address], [place] tel:[phone] Conversion NONDEPENDENT ABUSE OF DRUGS, OPIOID ABUSE, EPISODICANXIE TY STATE, UNSPECIFIEDHY POGLYCEMIA UNSPECIFIED, NON-DIABETIC 0 No Information [facility], [facility], [address] [place] [address], [address], [place] tel:[phone] [facility] No Information 0 No Information [facility], [facility], [address] [place] [address], [address], [place] tel:[phone] [facility] No Information 0 No Information [facility], [facility], [address] [place] [address], [address], [place] tel:[phone] [facility] No Information 0 No Information [facility], [facility], [address] [place] [address], [address], [place] tel:[phone] [facility] No Information 0 No Information DETAILED OUT/PT [facility], [address] [place] [address], [address], [place] tel:[phone] [facility] Adult [facility] No Information 0 No Information [facility], [facility], [address] [place] [address], [address], [place] tel:[phone] Conversion REFLUX ESOPHAGITISFA TIGUE/MALAISE NONDEPENDENT ABUSE OF DRUGS, OPIOID ABUSE, IN REMISSION 0 No Information [facility], [address] [place] [address], [address], [place] tel:[phone] Conversion 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 0 No Information [facility], [facility], [address] [place] [address], [address], [place] tel:[phone] [facility] No Information 0 No Information [facility], [facility], [address] [place] [address], [address], [place] tel:[phone] [facility] No Information 0 No Information [facility], [facility], [address] [place] [address], [address], [place] tel:[phone] [facility] No Information 0 No Information [facility], [facility], [address] [place] [address], [address], [place] tel:[phone] [facility] No Information 0 No Information [facility], [facility], [address] [place] [address], [facility], [place] tel:[phone] [facility] No Information 0 No Information [facility], [facility], [address] [place] [address], [facility], [place] tel:[phone] Conversion COCAINE DEPENDENCE, EPISODICOSTEO ARTHROSIS, GENERALIZED, SITE UNSPECIFIED 0 No Information [facility], [facility], [address] [place] [address], [facility], [place] tel:[phone] Conversion HUMAN IMMUNODEFICIE NCY VIRUS [HIV] DISEASE 0 No Information [facility]ly [facility], [facility], [address] [place] [address], [facility], [place] tel:[phone] Conversion HEPATITIS C (CHRONIC)DELGADO ETT'S ESOPHAGUSOTHE R AND UNSPECIFIED ALCOHOL DEPENDENCE, IN REMISSION 9 No Information DETAILED OUT/PT [facility], [address] [place] [address], [facility], [place] tel:[phone] [facility] No Information 9 No Information DETAILED OUT/PT [facility]ly [facility], [facility], [address] [place] [address], [facility], [place] tel:[phone] [facility] No Information 9 No Information [facility], [facility], [address] [place] [address], [facility], [place] tel:[phone] Conversion INSOMNIA, UNSPECIFIEDOT HER CHRONIC PAIN 9 No Information DETAILED OUT/PT [facility]ly [facility], [facility], [address] [place] [address], [facility], [place] tel:[phone] [facility] No Information 9 No Information [facility], [facility], [address] [place] [address], [facility], [place] tel:[phone] Conversion CHOLELITHIASI SESOPHAGITIS UNSPECIFIEDMO TTLED TEETHNONDEPEN DENT OTHER MIXED OR UNSPECIFIED DRUG ABUSE IN REMISSION 9 No Information DETAILED OUT/PT [facility], [address] [place] [address], [facility], [place] tel:[phone] [facility] No Information 9 No Information [facility], [facility], [address] [place] [address], [address], [place] tel:[phone] Conversion HEARTBURNCALC ULUS OF GALLBLADDER WITH OTHER CHOLECYSTITIS WITHOUT OBSTRUCTIONOT HER SPECIFIED ASTHMA 9 No Information [facility], [facility], [address] [place] [address], [address], [place] tel:[phone] Conversion ACUTE PAINACUTE CHOLECYSTITIS 9 No Information DETAILED OUT/PT [facility], [facility], [address] [place] [address], [address], [place] tel:[phone] [facility] No Information 9 No Information DETAILED OUT/PT [facility], [facility], [address] [place] [address], [address], [place] tel:[phone] [facility] No Information 9 No Information [facility], [facility], [address] [place] [address], [address], [place] tel:[phone] Conversion UNSPECIFIED ESSENTIAL HYPERTENSIONP REMENOPAUSAL MENORRHAGIA 9 No Information [facility], [facility], [address] [place] [address], [address], [place] tel:[phone] [facility] No Information 0 8 No Information [facility], [facility], [address] [place] [address], [address], [place] tel:[phone] Conversion ESOPHAGEAL REFLUX 8 No Information DETAILED OUT/PT [facility], [facility], [address] [place] [address], [address], [place] tel:[phone] [facility] No Information 200 8 No Information [facility], [facility], [address] [place] [address], [address], [place] tel:[phone] [facility] No Information Sep-0 9200 8 No Information MINIMAL OUT/PT [facility], [facility], [address] [place] [address], [address], [place] tel:[phone] [facility] No Information Sep-0 2200 8 No Information PREVENTIVE COUNSELING, INDIV [facility], [facility], [address] [place] [address], [address], [place] tel:[phone] [facility] No Information Dec-0 4-200 8 No Information DETAILED OUT/PT [facility], [address] [place], [address], [place] tel:[phone] [facility] No Information Nov-1 4-200 8 No Information [facility], [address] [place], [address], [place] tel:[phone] [facility] No Information Nov-0 8-200 8 No Information [facility], [address] [place], [address], [place] tel:[phone] [facility] No Information Vasyl-2 3-200 8 No Information MINIMAL OUT/PT [facility], [address] [place], [address], [place] tel:[phone] [facility] No Information Vasyl-1 8-200 8 No Information EXPANDED OUT/PT [facility], [address] [place], [address], [place] tel:[phone] [facility] No Information Vasyl-0 7-200 8 No Information [facility], [address] [place], [address], [place] tel:[phone] [facility] No Information September-2 2-200 8 No Information MINIMAL OUT/PT [facility], [address] [place] [address], [address], [place] tel:[phone] [facility] No Information September-1 3-200 8 No Information DETAILED OUT/PT [facility], [address] [place], [address], [place] tel:[phone] [facility] No Information September-1 2-200 8 No Information [facility], [address] [place] [address], [address], [place] tel:[phone] Conversion UNSPECIFIED DRUG DEPENDENCE UNSPECIFIED USE May-0 6-200 8 No Information [facility], [address] [place] [address], [address], [place] tel:[phone] [facility] No Information September-0 6-200 8 No Information DETAILED OUT/PT [facility], [address] [place], [address], [place] tel:[phone] [facility] No Information May-0 5-200 8 No Information [facility], [facility], [address] [place] [address], [address], [place] tel:[phone] Conversion DIZZINESS AND GIDDINESSANEM IA UNSPECIFIED May-0 5-200 8 No Information [facility], [facility], [address] [place] [address], [address], [place] tel:[phone] [facility] No Information Apr-2 9-200 8 No Information [facility], [facility], [address] [place] [address], [address], [place] tel:[phone] Conversion COMBINATIONS OF DRUG DEPENDENCE EXCLUDING OPIOID TYPE DRUG UNSPECIFIED USE Apr-2 9-200 8 No Information WELL EXAM 40-64 [facility], [address] [place] [address], [address], [place] tel:[phone] [facility] No Information Apr-2 4-200 8 No Information [facility], [facility], [address] [place] [address], [address], [place] tel:[phone] Conversion ROUTINE GYNECOLOGICAL EXAMINATION Apr-2 4-200 8 No Information [facility], [facility], [address] [place] [address], [address], [place] tel:[phone] [facility] No Information Apr-2 4-200 8 No Information PREVENTIVE COUNSELING, INDIV [facility], [address] [place] [address], [address], [place] tel:[phone] [facility] Adult [facility] No Information Apr-2 2-200 8 No Information [facility], [facility], [address] [place] [address], [address], [place] tel:[phone] [facility] No Information Apr-0 8-200 8 No Information [facility], [address] [place] [address], [address], [place] tel:[phone] [facility] No Information Apr-0 3-200 8 No Information DETAILED OUT/PT [facility], [address] [place] [address], [address], [place] tel:[phone] [facility] Adult [facility] No Information Apr-0 2-200 8 No Information [facility], [address] [place] [address], [facility], [place] tel:[phone] [facility] No Information Jul-2 0-200 8 No Information [facility], [address] [place] [address], [address], [place] tel:[phone] [facility] No Information Jul- 3200 8 No Information [facility], [facility], [address] [place] [address], [address], [place] tel:[phone] [facility] No Information Feb-2 8200 8 No Information [facility], [address] [place] [address], [address], [place] tel:[phone] Conversion MAJOR DEPRESSIVE AFFECTIVE DISORDER RECURRENT EPISODE MODERATE DEGREE Feb-2 8 8 No Information DETAILED OUT/PT [facility], [facility], [address] [place] [address], [facility], [place] tel:[phone] [facility] Adult [facility] No Information Feb-2 7 8 No Information [facility], [address] [place] [address], [facility], [place] tel:[phone] [facility] No Information b-2 200 8 No Information MINIMAL OUT/PT [facility], [facility], [address] [place] [address], [address], [place] tel:[phone] [facility] Adult [facility] No Information b-1 8200 8 No Information [facility], [facility], [address] [place] [address], [address], [place] tel:[phone] [facility] No Information Feb-0 7 8 No Information [facility], [address] [place] [address], [address], [place] tel:[phone] Conversion COCAINE DEPENDENCEMAJ OR DEPRESSION, RECURRENT Feb-0 7200 8 No Information DETAILED OUT/PT [facility], [address] [place] [address], [address], [place] tel:[phone] [facility] Adult [facility] No Information 0 8 No Information [facility], [address] [place] [address], [address], [place] tel:[phone] Conversion FLU SHOTROUTINE GENERAL MEDICAL EXAMINATION 0 8 No Information DETAILED OUT/PT [facility], [address] [place] [address], [address], [place] tel:[phone] [facility] Adult [facility] No Information 8 No Information [facility], [facility], [address] [place] [address], [address], [place] tel:[phone] Conversion ENCOUNTERS FOR UNSPECIFIED ADMINISTRATIV E PURPOSE 8 No Information FOCUSED OUT/PT Formerly [facility], [facility], [address] [place] [address], [id number], [place] tel:[phone] [facility] Adult Medicine No Information 8 No Information Formerly [facility], [facility], [address] [place] [address], [id number], [place] tel:[phone] Conversion SYMPTOMATIC MENOPAUSAL OR FEMALE CLIMACTERIC STATESUNSPECI FIED VIRAL HEPATITIS CSCREENING EXAMINATION FOR PULMONARY TUBERCULOSIS 8 No Information EXPANDED OUT/PT Formerly [facility], [facility], [address] [place] [address], [id number], [place] tel:[phone] [facility] Adult Medicine No Information 8 No Information Formerly [facility], [facility], [address] [place] [address], [id number], [place] tel:[phone] Conversion ALCOHOL DEPENDENCEOPI OID DEPENDENCEDEP RESSIVE DISORDER, NOT ELSEWHERE CLASSIFIED 8 No Information Formerly [facility], [facility], [address] [place] [address], [id number], [place] tel:[phone] [facility] Behavioral Health No Information 8 No Information PREVENTIVE COUNSELING, INDIV Formerly [facility], [facility], [address] [place] [address], [address], [place] tel:[phone] [facility] Adult Medicine No Information 8 7 No Information DETAILED OUT/PT Formerly [facility], [facility], [address] [place] [address], [id number], [place] tel:[phone] [facility] Adult Medicine No Information 7 No Information Formerly [facility], [facility], [address] [place] [address], [address], [place] tel:[phone] Conversion BRONCHITIS, ACUTE 7 No Information DETAILED OUT/PT Formerly [facility], [facility], [address] [place] [address], [id number], [place] tel:[phone] [facility] Adult Medicine No Information 7 No Information DETAILED OUT/PT Formerly [facility], [facility], [address] [place] [address], [facility], [place] tel:[phone] [facility] Adult Medicine No Information 7 No Information Formerly [facility], [facility], [address] [place] [address], [facility], [place] tel:[phone] Conversion HYPOTHYROIDIS M, UNSPECIFIED AQUIREDHEPATI TIS C WITHOUT MENTION OF HEPATIC COMA 7 No Information EXPANDED OUT/PT Formerly [facility], [facility], [address] [place] [address], [id number], [place] tel:[phone] [facility] Adult Medicine No Information No Information EXPANDED OUT/PT Formerly [facility], [address] [place] [address], [facility], [place] tel:[phone] [facility] Adult Medicine No Information 7 No Information Formerly [facility], [facility], [address] [place] [address], [facility], [place] tel:[phone] Conversion SCREENING EXAMINATION FOR VENEREAL DISEASETORTIC OLLIS UNSPECIFIED 7 No Information NEW Level 3 - Detailed Formerly [facility], [facility], [address] [place] [address], [facility], [place] tel:[phone] [facility] Adult Medicine No Information No Information Formerly [facility], [facility], [address] [place] [address], [facility], [place] tel:[phone] Conversion PNEUMONIA ORGANISM UNSPECIFIEDCO UGH 7 No [...]
--- OUTSIDE RECORDS SUMMARY | 2025-02-09 11:58 | XMS_ITS | Clinical Summary ---
Author Organization [facility] Address [address] [place] [id number] Phone Care Team Providers Care General Repairer Name Role Phone Kait Martínez MD Primary Care Provid er Medications cyclobenzaprine (FLEXERIL) 10 MG tablet Take 1 tablet (10 mg total) by mouth 3 (three) times a day as needed (neck spasm). 15 tablet 08/05/2018 Active Active Problems No known active problems Social History Tobacco Use Types Packs/Day Years Used Date Smoking Tobacco: Never Assessed Education Answer Date Recorded Are you interested in more education? Not on rhiannon e 09/18/2022 Are you concerned about learning? Not on file 09/18/2022 No 09/18/2022 No 09/18/2022 Digital Access Answer Date Recorded No 10/20/2022 No 10/20/2022 No 10/20/2022 Reliable internet access at home? Not on file 10/20/2022 Device with a working camera? Not on file Comments Unknown Sex and Gender Information Value Date Recorded Sex Assigned at Not on file Legal Sex Female 12:02 PM EDT Gender Identity Not on file Sexual Orientation Not on file Last Filed Vital Signs Vital Sign Reading Time Taken Comments Blood Pressure 137/80 08/26/2018 12:09 PM EDT Pulse 85 08/26/2018 12:09 PM EDT Temperature 36.7 C (98 F) 08/26/2018 12:09 PM EDT Respiratory Rate 20 08/05/2018 12:17 PM EDT Oxygen Saturation 96% 08/26/2018 12:09 PM EDT Inhaled Oxygen Concentration - - Weight 77.1 kg (170 lb) 08/26/2018 12:09 PM EDT Height 162.6 cm (5' 4 ) 08/26/2018 12:09 PM EDT Body Mass Index 29.18 08/26/2018 12:09 PM EDT Plan of Treatment Not on file Medical Devices Not on file Insurance ACO ACO ACO ACO Care Teams General Repairer Relationship Specialty Start Date End Date Kait Martínez MD [address] [place] [address] PCP - General Internal Medicine 08/05/18 Additional Source Comments The information contained in this document represents components of the legal health record. It is not the complete legal health record.[facility]
--- NOTE | 2025-02-09 12:05 | A.SPINEOV_ITS ---
Intake Visit Reasons: recurring back pain after surgery Intake Note: Ms. Thomas is here today c/o recurring back pain after surgery. Section Crews Activities Clerk Required: No Allergies Penicillins (PENICILLINS) Allergy (Intermediate, Verified 02/09/25 12:05) RASH (CHILDHOOD ALLERGY) Assessment & Plan Assessment & Plan (1) Neck pain: Code(s): M54.2 - Cervicalgia Category: Medical (2) S/P spinal fusion: Code(s): Z98.1 - Arthrodesis status Category: Surgical Plan Mrs Thomas is here in follow-up. She underwent an L5-S1 anterior lumbar interbody fusion earlier this year. She initially had relief of her pain in her back and her right leg but it seems to have come back over the last few months. She is in tremendous pain. There is the shadow a fibromyalgia which sits over most of her pain related conditions and she is wondering if it might not just be part of this diagnosis as well. She also has severe right-sided neck pain which gives her right-sided headaches. That is never been worked up as far she knows. She is taking [id number] pain medications as needed and is on methocarbamol and naproxen. She is very frustrated with her quality of life issues very hopeful the surgery we did would give her excellent relief but it does not seem like it is meeting her expectations. On exam she has good strength and normal reflexes. I am going to order a plain set of x-rays of her cervical spine and follow that up with an MRI if it looks severely degenerative. I did warn her insurance company may require physical therapy before getting the neck MRI. We will also get a set of lumbar x-rays in order to assess the hardware and make sure she has not developed pseudoarthrosis, and I will also order a lumbar MRI to evaluate if there is any residual stenosis that maybe causing her leg pain. I will see her back in the office once these things are completed. Total amount of time spent in this visit was 20 minutes in discussion of symptoms, ordering imaging and subsequent plan of care Niles Briones MD,PhD [facility] Orders: Orders XR cervical spine 4V Today M54.2 - Cervicalgia XR lumbar spine 4V min Today Z98.1 - Arthrodesis status Coding Level of Care Code Est Pt Level 3 (06952) Diagnoses Neck pain M54.2 S/P spinal fusion Z98.1
== END 2025-02-09 12:43 | disposition home or self-care (01) ==
PROVIDERS: PCP Physician Assistant; Visit Provider Physician Assistant
DX: M54.2 Cervicalgia (principal); Z98.1 Arthrodesis status
CPT/HCPCS: 99213

== ENCOUNTER → 2025-02-09 12:32 | Outpatient (BNV) | payer MEDICARE, SELFPAY | PROVIDERS: PCP Physician Assistant; Visit Provider Radiology Diagnostic Radiology | DX: M51.360 Other intervertebral disc degeneration, lumbar region with discogenic back pain only (principal) | CPT/HCPCS: 72110 ==

== ENCOUNTER → 2025-03-14 13:08 | Outpatient (BNV) | payer MEDICARE, MEDICAID, SELFPAY | PROVIDERS: PCP Physician Assistant; Visit Provider Radiology Diagnostic Radiology | DX: M47.816 Spondylosis without myelopathy or radiculopathy, lumbar region (principal); M48.061 Spinal stenosis, lumbar region without neurogenic claudication; M43.26 Fusion of spine, lumbar region | CPT/HCPCS: 72148 ==

== ENCOUNTER 2025-03-14 13:11 | Outpatient (REF) | payer MEDICARE, MEDICAID, SELFPAY ==
--- NOTE | ~2025-03-14 | MR_ITS ---
EXAM: MRI Cervical Spine Wo Con TECHNIQUE: Multiplanar multisequence imaging through the cervical spine was performed from the base of the skull through at least T1. INDICATION: M54.2 - Cervicalgia PRIOR: X-ray performed 02/09/2025 FINDINGS: Skull Base: There is no tonsillar ectopia. Cranialcervical junction is intact. Cord: There is no abnormal cord signal or hydrosyringomyelia. Marrow and end-plates: There are no marrow replacing lesions. Alignment: There is mild reversal cervical lordosis. Soft tissues: Paraspinal soft tissues and major vascular structures are unremarkable. C2-3: There is no disc bulge, herniation, spinal stenosis, or foraminal narrowing. C3-4: There is subtle anterolisthesis. There is circumferential broad-based disc bulge with mild spinal stenosis. Disc and osteophytes result in mild bilateral foraminal narrowing, greater on the right. C4-5: Circumferential broad-based disc bulge does not result in spinal stenosis. Disc and osteophytes result in mild right and moderate left foraminal narrowing. C5-6: There is moderate loss of disc height and circumferential broad-based disc bulge and endplate osteophytes most pronounced in the left central region. There is mild spinal stenosis disc and osteophytes results in moderate right and severe left foraminal narrowing. C6-7: There is mild loss of disc height and circumferential broad-based disc bulge with endplate osteophytes resulting in mild to moderate spinal stenosis. Disc and osteophytes result in severe right and moderate left foraminal narrowing. C7-T1: There is no disc bulge, herniation, spinal stenosis, or foraminal narrowing. MR/MR cervical spine wo con IMPRESSION: There is mild reversal of cervical lordosis. This can be related to degenerative changes, positioning, muscle spasm, or posterior soft tissue injury. C3-4: There is mild spinal stenosis. C4-5: Disc osteophyte complex results in moderate left foraminal narrowing. C5-6: There is mild spinal stenosis with moderate right and severe left foraminal narrowing. C6-7: There is mild to moderate spinal stenosis with severe right and moderate left foraminal narrowing. Electronically signed by: Gibson Tejada MD 03/14/2025 02:49 PM EDT
--- NOTE | ~2025-03-14 | MR_ITS ---
EXAMINATION: MR LUMBAR SPINE WITHOUT CONTRAST CLINICAL INFORMATION: Low back pain, radiating down both legs. Constipation and bladder incontinence. History of lumbar surgery. COMPARISON: MR lumbar 03/01/2024 Radiographs of the lumbar spine 02/09/2025 TECHNIQUE: Multiplanar multisequence MR imaging of the lumbar spine was done without IV contrast. Examination was performed on a 1.5 Jacki Siemens magnet, utilizing standard sequences. FINDINGS: CORONAL ALIGNMENT: -There is a mild levoconvex scoliosis. SAGITTAL ALIGNMENT: - Normal lordosis. No subluxations. LUMBOSACRAL JUNCTION: -Normal. There are 5 [id number] lumbar-type vertebral bodies. VERTEBRAL BODIES/BONE MARROW: -There has been prior discectomy and fusion of L4-5 and L5-S1. There are disc prostheses in place with susceptibility artifact present, obscuring immediately adjacent soft tissue and bone. There have been L4-5 laminectomies. -There is no compression deformity, fracture, or abnormal infiltrating suspicious bone marrow lesion. -There is no abnormal bone marrow edema. There are no significant endplate changes. DISCS: -Moderate loss of disc height and signal at T11-T12. -Mild loss of disc height and signal at L3-4. -Mild loss of disc signal at the other levels without significant loss of disc height. -Disc prostheses at L4-5 and L5-S1. SPINAL CANAL: -No abnormal developmental findings. CONUS MEDULLARIS: -Terminates at superior endplate of L2. Morphology and signal is normal. INTRADURAL NERVE ROOTS: - No abnormal nerve root clumping, masses, or other abnormalities. Axial Disc Space Images: T11-T12: There is a shallow diffuse bulging disc, resulting in mild central canal stenosis and mild bilateral neural foraminal stenosis. T12-L1: Moderate left and mild right hypertrophic degenerative facet changes are present. No significant disc bulge. No significant central canal or neural foraminal narrowing. No change. L1-L2: No significant disc herniation. Moderate bilateral hypertrophic degenerative facet changes. There is no central canal narrowing. There is no neural foraminal narrowing. No change. L2-L3: There is minimal concentric disc bulging, which indents upon the ventral thecal sac but does not contact neural elements. Moderate hypertrophic degenerative facet changes bilaterally with posterior ligamentous thickening/infolding. There is mild central canal narrowing, minimal bilateral subarticular recess narrowing, and minimal left neural foraminal narrowing. No change. L3-L4: There is a shallow disc osteophytic ridge complex present extending into the right greater than left foraminal zones. There are moderate to severe hypertrophic degenerative facet changes bilaterally with facet joint effusions. There is prominent posterior ligamentous thickening/infolding. Combination of findings results in moderate to severe central canal stenosis, with the thecal sac being reduced to approximately 8 mm AP diameter. There is moderate bilateral subarticular recess stenosis with contact and minimal deviation of both traversing left greater than right L4 nerve roots. There is moderate right and [id number] left neural foraminal narrowing. Mild deviation/mass effect on the exiting bilateral L4 roots. Findings at this level are largely stable. L4-L5: Dorsal laminectomies and disc prostheses/fusion. Central canal is decompressed and capacious. Normal-appearing nerve roots. No residual central canal, subarticular recess, or neural foraminal narrowing. No change. L5-S1: There has been interval discectomy and disc prosthesis placement. There are severe degenerative facet changes right greater than left with predominantly extracanalicular spurring. There is mild posterior ligamentous thickening/infolding. There is mild central canal narrowing, mild to moderate bilateral subarticular recess narrowing, severe right and moderate left neural foraminal narrowing. Susceptibility artifact obscures portions of the right neural foramen. Aside from disc prosthesis, largely no significant interval change. 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 -Bone graft harvest site noted left posterior iliac bone. PARAVERTEBRAL AND INCLUDED EXTRASPINAL SOFT TISSUES: -Denervation atrophy of the inferior paraspinous musculature. Mild aortic ectasia without aneurysm. MR/MR lumbar spine wo con IMPRESSION: 1. Since the prior examination, there has been placement of disc prosthesis at L5-S1. 2. There is stable fusion of L4-5 with titanium disc prostheses and laminectomies. No change or complication evident. 3. Moderate spondylosis, without significant interval change since the prior examination. There is persistent moderate to severe central canal stenosis at L3-4. 4. See the body the report for details. Electronically signed by: Angelo Bah MD 03/14/2025 03:10 PM EDT
--- OUTSIDE RECORDS SUMMARY | 2025-03-14 18:34 | XMS_ITS | Clinical Summary ---
Author Organization [facility] Address [address] [place] [id number] Phone Care Team Providers Care Patent Prosecution Attorney Name Role Phone Kait Martínez MD Primary [...] Insurance ACO ACO ACO ACO Care Teams Patent Prosecution Attorney Relationship Specialty Start Date End Date Kait Martínez MD [address] [place] [address] PCP - General Internal Medicine 08/05/18 Additional Source Comments The information contained in this document represents components of the legal health record. It is not the complete legal health record.[facility]
== END 2025-03-14 13:12 | disposition home or self-care (01) ==
LOC: HO.MRI 13:11
PROVIDERS: PCP Physician Assistant; Visit Provider Physician Assistant
DX: M54.2 Cervicalgia (principal); M54.9 Dorsalgia, unspecified
CPT/HCPCS: 72141; 72148

== ENCOUNTER 2025-03-23 10:57 | Outpatient (AMB) | payer MEDICARE, MEDICAID, SELFPAY ==
--- OUTSIDE RECORDS SUMMARY | 2010-08-01 20:00 | XMS_ITS | Continuity of Care Document ---
Author Organization [facility] vices Address [address] [place] [address] Phone Care Team Providers Care [employer] Name Role Phone Unavailable Unavailable Unavailable Allergies, [...] a day for 30 day(s) - Active Ventolin HFA 90 mcg/actuation Aerosol Inhaler SI puff(s) inhaled 4 times a day PRN(as needed for wheezing) - Active ibuprofen 800 mg tablet SI tab(s) orally every 8 hours PRN(as needed for pain) with food or milk - Active Nexium 40 mg capsule,delayed release SI cap(s) orally once a day - Active clonidine oral 0.1 mg SI [...] Diagnoses Date Provider Providers Copied on Encounter [facility], [address] [place] [address], [facility], tel:[phone] [facility] Behavioral Health No Information 1 No Information [facility], [address] [place] [address], [facility], tel:[phone] Conversion AXIS V GLOBAL ASSESS OF FUNCTIONING (GAF) SCALE ___ (100-0) 1 No Information [facility], [address] [place] [address], [facility], tel:[phone] Conversion No Information 1 No Information [facility], [address] [place] [address], [facility], tel:[phone] Conversion No Information Feb-0 1-201 1 No Information [facility], [address] [place], [address], [place] tel:[phone] [facility] Behavioral [facility] No Information Adin-0 5-201 1 No Information GROUP PSYCHOTHERAPY [facility], [address] [place], [address], [place] tel:[phone] [facility] Behavior[facility] No Information Adin-0 3-201 1 No Information GROUP PSYCHOTHERAPY [facility], [address] [place], [address], [place] tel:[phone] [facility] Behavior[facility] No Information Dec-2 0-201 0 No Information [facility], [address] [place], [address], [place] tel:[phone] [facility] No Information Dec-1 5-201 0 No Information [facility], [address] [place] [address], [address], [place] tel:[phone] [facility] Behavioral Health No Information Dec-1 5-201 0 No Information PSYCHOTHERAPY, GROUP [facility], [address] [place] [address], [address], [place] tel:[phone] [facility] Behavior[facility] No Information Dec-1 3-201 0 No Information [facility], [address] [place], [address], [place] tel:[phone] [facility] Behavior[facility] No Information Dec-0 7-201 0 No Information GROUP PSYCHOTHERAPY [facility], [address] [place] [address], [address], [place] tel:[phone] [facility] Behavioral Health No Information Dec-0 6-201 0 No Information GROUP PSYCHOTHERAPY [facility], [address] [place] [address], [address], [place] tel:[phone] [facility] Behavior[facility] No Information Nov-2 9-201 0 No Information [facility], [address] [place] [address], [address], [place] tel:[phone] [facility] Behavior[facility] No Information Nov-2 4-201 0 No Information GROUP PSYCHOTHERAPY [facility], [address] [place] [address], [address], [place] tel:[phone] [facility] Behavior[facility] No Information Nov-2 2-201 0 No Information [facility], [address] [place], [address], [place] tel:[phone] [facility] Behavior[facility] No Information Nov-1 6-201 0 No Information GROUP PSYCHOTHERAPY [facility], [address] [place] [address], [facility], [place] tel:[phone] [facility] Behavior[facility] No Information Nov-1 5-201 0 No Information [facility], [address] [place] [address], [facility], [place] tel:[phone] [facility] Behavior[facility] No Information Nov-0 9-201 0 No Information GROUP PSYCHOTHERAPY [facility], [address] [place] [address], [address], [place] tel:[phone] [facility] Behavior[facility] No Information Nov-0 8-201 0 No Information [facility], [address] [place] [address], [facility], [place] tel:[phone] [facility] Behavior[facility] No Information Nov-0 4-201 0 No Information GROUP PSYCHOTHERAPY [facility], [address] [place] [address], [facility], [place] tel:[phone] [facility] Behavior[facility] No Information Nov-0 1-201 0 No Information [facility], [address] [place] [address], [address], [place] tel:[phone] [facility] Behavior[facility] No Information Feb-2 9 0 No Information [facility], [address] [place] [address], [address], [place] tel:[phone] [facility] Behavior[facility] No Information Feb-2 6- 0 No Information [facility], [address] [place] [address], [address], [place] tel:[phone] Historic Immunization Location No Information Feb-2 6-201 0 No Information DETAILED OUT/PT [facility], [address] [place] [address], [address], [place] tel:[phone] [facility] Adult Medicine No Information Feb-2 6- 0 No Information [facility], [address] [place] [address], [address], [place] tel:[phone] Conversion No Information Feb-2 5-201 0 No Information [facility], [address] [place] [address], [address], [place] tel:[phone] [facility] Behavior[facility] No Information Oct-2 5-201 0 No Information [facility], [address] [place] [address], [address], [place] tel:[phone] Conversion No Information Oct-2 0-201 0 No Information [facility], [address] [place] [address], [address], [place] tel:[phone] [facility] Behavior[facility] No Information Oct-2 0-201 0 No Information [facility], [address] [place] [address], [address], [place] tel:[phone] [facility] Behavior[facility] No Information Sep-3 0-201 0 No Information [facility], [address] [place] [address], [address], [place] tel:[phone] Conversion ALCOHOL ABUSE Sep-3 0-201 0 No Information [facility], [address] [place] [address], [address], [place] tel:[phone] Conversion COUNSELING ON SUBSTANCE USE AND ABUSELACK OF PHYSICAL EXERCISE Sep-2 7-201 0 No Information [facility], [address] [place] [address], [address], [place] tel:[phone] [facility] Behavior[facility] No Information Sep-2 0-201 0 No Information [facility], [address] [place] [address], [address], [place] tel:[phone] Conversion No Information Sep-2 0-201 0 No Information [facility], [address] [place] [address], [address], [place] tel:[phone] [facility] Behavior[facility] No Information Sep-0 9-201 0 No Information DETAILED OUT/PT [facility], [address] [place] [address], [address], [place] tel:[phone] [facility] Adult Medicine No Information Dec-2 4 0 No Information [facility], [address] [place] [address], [address], [place] tel:[phone] Conversion No Information Aug-2 4-201 0 No Information [facility], [address] [place] [address], [address], [place] tel:[phone] Conversion NONDEPENDENT ABUSE OF DRUGS, OPIOID ABUSE, EPISODICANXIE TY STATE, UNSPECIFIEDHY POGLYCEMIA UNSPECIFIED, NON-DIABETIC 0 No Information [facility], [address] [place] [address], [address], [place] tel:[phone] [facility] Behavioral [facility] No Information 0 No Information [facility], [address] [place] [address], [address], [place] tel:[phone] [facility] Behavior[facility] No Information 0 No Information [facility], [address] [place] [address], [address], [place] tel:[phone] [facility] Behavior[facility] No Information 0 No Information [facility], [address] [place] [address], [address], [place] tel:[phone] [facility] Behavior[facility] No Information 0 No Information DETAILED OUT/PT [facility], [address] [place] [address], [address], [place] tel:[phone] [facility] Adult Medicine No Information 0 No Information [facility], [address] [place] [address], [address], [place] tel:[phone] Conversion REFLUX ESOPHAGITISFA TIGUE/MALAISE NONDEPENDENT ABUSE OF DRUGS, OPIOID ABUSE, IN REMISSION 0 No Information [facility], [address] [place] [address], [address], [place] tel:[phone] Conversion 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 0 No Information [facility], [address] [place] [address], [address], [place] tel:[phone] [facility] Behavior[facility] No Information 0 No Information [facility], [address] [place] [address], [address], [place] tel:[phone] [facility] Behavior[facility] No Information 0 No Information [facility], [address] [place] [address], [address], [place] tel:[phone] [facility] Behavior[facility] No Information 0 No Information [facility], [address] [place] [address], [address], [place] tel:[phone] [facility] Behavior[facility] No Information 0 No Information [facility], [address] [place] [address], [facility], [place] tel:[phone] [facility] Adult Medicine No Information 0 No Information [facility], [address] [place] [address], [facility], [place] tel:[phone] Conversion COCAINE DEPENDENCE, EPISODICOSTEO ARTHROSIS, GENERALIZED, SITE UNSPECIFIED 0 No Information [facility], [address] [place] [address], [facility], [place] tel:[phone] Conversion HUMAN IMMUNODEFICIE NCY VIRUS [HIV] DISEASE 0 No Information [facility], [address] [place] [address], [facility], [place] tel:[phone] Conversion HEPATITIS C (CHRONIC)DELGADO ETT'S ESOPHAGUSOTHE R AND UNSPECIFIED ALCOHOL DEPENDENCE, IN REMISSION 9 No Information [facility], [address] [place] [address], [facility], [place] tel:[phone] [facility] Adult Medicine No Information 9 No Information DETAILED OUT/PT [facility], [address] [place] [address], [facility], [place] tel:[phone] [facility] Adult [facility] No Information 9 No Information [facility], [address] [place] [address], [facility], [place] tel:[phone] Conversion INSOMNIA, UNSPECIFIEDOT HER CHRONIC PAIN 9 No Information DETAILED OUT/PT [facility], [address] [place] [address], [facility], [place] tel:[phone] [facility] Adult [facility] No Information 9 No Information [facility], [address] [place] [address], [facility], [place] tel:[phone] Conversion CHOLELITHIASI SESOPHAGITIS UNSPECIFIEDMO TTLED TEETHNONDEPEN DENT OTHER MIXED OR UNSPECIFIED DRUG ABUSE IN REMISSION 9 No Information [facility]AILED OUT[facility], [address] [place] [address], [facility], [place] tel:[phone] [facility] Adult Medicine No Information 9 No Information [facility], [address] [place] [address], [address], [place] tel:[phone] Conversion HEARTBURNCALC ULUS OF GALLBLADDER WITH OTHER CHOLECYSTITIS WITHOUT OBSTRUCTIONOT HER SPECIFIED ASTHMA 9 No Information [facility], [address] [place] [address], [address], [place] tel:[phone] Conversion ACUTE PAINACUTE CHOLECYSTITIS 9 No Information DETAILED OUT/PT [facility], [address] [place] [address], [address], [place] tel:[phone] [facility] Adult Medicine No Information 9 No Information DETAILED OUT/PT [facility], [address] [place] [address], [address], [place] tel:[phone] [facility] Adult Medicine No Information 9 No Information [facility], [address] [place] [address], [address], [place] tel:[phone] Conversion UNSPECIFIED ESSENTIAL HYPERTENSIONP REMENOPAUSAL MENORRHAGIA 9 No Information [facility], [address] [place] [address], [address], [place] tel:[phone] [facility] Behavior[facility] No Information 0 8 No Information [facility], [address] [place] [address], [address], [place] tel:[phone] Conversion ESOPHAGEAL REFLUX 8 No Information DETAILED OUT/PT [facility], [address] [place] [address], [address], [place] tel:[phone] [facility] Adult Medicine No Information 200 8 No Information [facility], [address] [place] [address], [address], [place] tel:[phone] [facility] Behavior[facility] No Information Sep-0 9200 8 No Information MINIMAL OUT/PT [facility], [address] [place] [address], [address], [place] tel:[phone] [facility] Adult Medicine No Information Sep-0 2200 8 No Information PREVENTIVE COUNSELING, INDIV [facility], [address] [place] [address], [address], [place] tel:[phone] [facility] Adult Medicine No Information Dec-0 4-200 8 No Information [facility]AILED OUT[facility], [address] [place], [address], [place] tel:[phone] [facility] Adult Medicine No Information Nov-1 4-200 8 No Information [facility], [address] [place], [address], [place] tel:[phone] [facility] Behavior[facility] No Information Nov-0 8-200 8 No Information [facility], [address] [place], [address], [place] tel:[phone] [facility] Behavior[facility] No Information Vasyl-2 3-200 8 No Information MINIMAL OUT/PT [facility], [address] [place], [address], [place] tel:[phone] [facility] Adult Medicine No Information Vasyl-1 8-200 8 No Information EXPANDED OUT/PT [facility], [address] [place], [address], [place] tel:[phone] [facility] Adult Medicine No Information Vasyl-0 7-200 8 No Information [facility], [address] [place], [address], [place] tel:[phone] [facility] Behavior[facility] No Information September-2 2-200 8 No Information MINIMAL OUT/PT [facility], [address] [place] [address], [address], [place] tel:[phone] [facility] Adult Medicine No Information September-1 3-200 8 No Information DETAILED OUT/PT [facility], [address] [place], [address], [place] tel:[phone] [facility] Adult Medicine No Information September-1 2-200 8 No Information [facility], [address] [place] [address], [address], [place] tel:[phone] Conversion UNSPECIFIED DRUG DEPENDENCE UNSPECIFIED USE May-0 6-200 8 No Information [facility], [address] [place] [address], [address], [place] tel:[phone] [facility] Behavior[facility] No Information September-0 6-200 8 No Information DETAILED OUT[facility]PT [facility], [address] [place], [address], [place] tel:[phone] [facility] Adult [facility] No Information May-0 5-200 8 No Information [facility], [address] [place] [address], [address], [place] tel:[phone] Conversion DIZZINESS AND GIDDINESSANEM IA UNSPECIFIED May-0 5-200 8 No Information [facility], [address] [place] [address], [address], [place] tel:[phone] [facility] Behavior[facility] No Information Apr-2 9-200 8 No Information [facility], [address] [place] [address], [address], [place] tel:[phone] Conversion COMBINATIONS OF DRUG DEPENDENCE EXCLUDING OPIOID TYPE DRUG UNSPECIFIED USE Apr-2 9-200 8 No Information WELL EXAM 40-64 [facility], [address] [place] [address], [address], [place] tel:[phone] [facility] No Information Apr-2 4-200 8 No Information [facility], [address] [place] [address], [address], [place] tel:[phone] Conversion ROUTINE GYNECOLOGICAL EXAMINATION Apr-2 4-200 8 No Information [facility], [address] [place] [address], [address], [place] tel:[phone] [facility] Behavior[facility] No Information Apr-2 4-200 8 No Information PREVENTIVE COUNSELING, INDIV [facility], [address] [place] [address], [address], [place] tel:[phone] [facility] Adult [facility] No Information Apr-2 2-200 8 No Information [facility], [address] [place] [address], [address], [place] tel:[phone] [facility] Behavior[facility] No Information Apr-0 8-200 8 No Information [facility], [address] [place] [address], [address], [place] tel:[phone] [facility] Behavior[facility] No Information Apr-0 3-200 8 No Information DETAILED OUT/PT [facility], [address] [place] [address], [address], [place] tel:[phone] [facility] Adult Medicine No Information Apr-0 2-200 8 No Information [facility], [address] [place] [address], [facility], [place] tel:[phone] [facility] Behavior[facility] No Information Jul-2 0-200 8 No Information [facility], [address] [place] [address], [address], [place] tel:[phone] [facility] Behavior[facility] No Information Jul- 3200 8 No Information [facility], [address] [place] [address], [address], [place] tel:[phone] [facility] Behavior[facility] No Information Feb-2 8200 8 No Information [facility], [address] [place] [address], [address], [place] tel:[phone] Conversion MAJOR DEPRESSIVE AFFECTIVE DISORDER RECURRENT EPISODE MODERATE DEGREE Feb-2 8 8 No Information DETAILED OUT/PT [facility], [address] [place] [address], [facility], [place] tel:[phone] [facility] Adult Medicine No Information Feb-2 7 8 No Information [facility], [address] [place] [address], [facility], [place] tel:[phone] [facility] Behavior[facility] No Information b-2 200 8 No Information MINIMAL OUT/PT [facility], [address] [place] [address], [address], [place] tel:[phone] [facility] Adult Medicine No Information b-1 8200 8 No Information [facility], [address] [place] [address], [address], [place] tel:[phone] [facility] Behavior[facility] No Information Feb-0 7 8 No Information [facility], [address] [place] [address], [address], [place] tel:[phone] Conversion COCAINE DEPENDENCEMAJ OR DEPRESSION, RECURRENT Feb-0 7200 8 No Information DETAILED OUT/PT [facility], [address] [place] [address], [address], [place] tel:[phone] [facility] Adult [facility] No Information 0 8 No Information [facility], [address] [place] [address], [address], [place] tel:[phone] Conversion FLU SHOTROUTINE GENERAL MEDICAL EXAMINATION 0 8 No Information DETAILED OUT/PT [facility], [address] [place] [address], [address], [place] tel:[phone] [facility] Adult Medicine No Information 8 No Information [facility], [address] [place] [address], [address], [place] tel:[phone] Conversion ENCOUNTERS FOR UNSPECIFIED ADMINISTRATIV E PURPOSE 8 No Information FOCUSED OUT/PT [facility], [address] [place] [address], [address], [place] tel:[phone] [facility] Adult Medicine No Information 8 No Information [facility], [address] [place] [address], [address], [place] tel:[phone] Conversion SYMPTOMATIC MENOPAUSAL OR FEMALE CLIMACTERIC STATESUNSPECI FIED VIRAL HEPATITIS CSCREENING EXAMINATION FOR PULMONARY TUBERCULOSIS 8 No Information EXPANDED OUT/PT [facility], [address] [place] [address], [address], [place] tel:[phone] [facility] Adult Medicine No Information 8 No Information [facility], [address] [place] [address], [address], [place] tel:[phone] Conversion ALCOHOL DEPENDENCEOPI OID DEPENDENCEDEP RESSIVE DISORDER, NOT ELSEWHERE CLASSIFIED 8 No Information [facility], [address] [place] [address], [address], [place] tel:[phone] [facility] Behavior[facility] No Information 8 No Information FOCUSED OUT/PT [facility], [address] [place] [address], [address], [place] tel:[phone] [facility] Adult Medicine No Information 7 No Information DETAILED OUT/PT [facility], [address] [place] [address], [address], [place] tel:[phone] [facility] Adult Medicine No Information 7 No Information [facility], [address] [place] [address], [address], [place] tel:[phone] Conversion BRONCHITIS, ACUTE 7 No Information DETAILED OUT/PT [facility], [address] [place] [address], [address], [place] tel:[phone] [facility] Adult Medicine No Information 7 No Information DETAILED OUT/PT [facility], [address] [place] [address], [address], [place] tel:[phone] [facility] Adult Medicine No Information 7 No Information [facility], [address] [place] [address], [address], [place] tel:[phone] Conversion HYPOTHYROIDIS M, UNSPECIFIED AQUIREDHEPATI TIS C WITHOUT MENTION OF HEPATIC COMA 7 No Information EXPANDED OUT/PT [facility], [address] [place] [address], [address], [place] tel:[phone] [facility] Adult Medicine No Information No Information EXPANDED OUT/PT [facility], [address] [place] [address], [facility], [place] tel:[phone] [id number] [facility] Adult Medicine No Information 7 No Information [facility], [address] [place] [address], [facility] [place], [place] tel:[phone] Conversion SCREENING EXAMINATION FOR VENEREAL DISEASETORTIC OLLIS UNSPECIFIED 7 No Information NEW Level 3 - Detailed [facility], [address] [place] [address], [id number], [place] tel:[phone] [facility] Adult Medicine No Information 7 No Information [facility], [address] [place] [address], [facility] [place] [place] tel:[phone] Conversion PNEUMONIA ORGANISM UNSPECIFIEDCO [facility] 7 No [...]
--- NOTE | 2025-03-23 11:42 | A.SPINEOV_ITS ---
Intake Visit Reasons: MRI f/u Intake Note: Ms. Thomas is here today to F/u on the results to her MRI. Network Operations Specialist Required: No Allergies Penicillins (PENICILLINS) Allergy (Intermediate, Verified 02/09/25 12:05) RASH (CHILDHOOD ALLERGY) Assessment & Plan Assessment & Plan (1) Back pain: Code(s): M54.9 - Dorsalgia, unspecified Category: Medical (2) Neck pain: Code(s): M54.2 - Cervicalgia Category: Medical Plan Mrs Thomas is here in follow-up. She had her lumbar MRI and her cervical MRI done at [facility]. This shows that she has degenerative disc disease at C5-6 and C6-7 with moderate foraminal stenosis at both of these levels. The main issue with her neck is posterior cervical pain radiating up to the back of her head that gives her headaches. No radicular pains down the arms. She has a diagnosis of fibromyalgia as well. I explained to her that the discs are degenerative and that we can do fusion on them to attempt to fix the neck pain, but a lot of her neck pain does not localize well to the lower parts of the cervical spine, but rather the upper part of the neck into the back of the head. This could be pain from muscles related to fibromyalgia and not re lated to the degenerative discs at all. Therefore would be harder to tell her how successful surgery would be. Similarly with her lumbar spine, the lumbar fusion sites look great, but there is a little bit of arthritis developing above her fusions at the L3-4 level. It is not bad enough to justify surgery are explain severe pain however. Therefore I think we should be very cautious considering surgery on her given that her fibromyalgia often supercedes many of the findings that we see on the anatomical studies. She will come back and see me down the road if things start to get worse or she develops new symptoms. Total amount of time spent in this visit was 20 minutes in discussion of symptoms, cervical and lumbar imaging results and subsequent plan of care Niles Briones MD,PhD [facility] Coding Level of Care Code Est Pt Level 3 (59346) Diagnoses Back pain M54.9 Neck pain M54.2
--- OUTSIDE RECORDS SUMMARY | 2025-03-23 12:28 | XMS_ITS | Clinical Summary ---
Author Organization [facility] Address [address] [place] [phone] Phone Care Team Providers Care Process Development Engineer Name Role Phone Kait Martínez MD Primary [...] Insurance ACO ACO ACO ACO Care Teams Process Development Engineer Relationship Specialty Start Date End Date Kait Martínez MD [address] [place] [address] PCP - General Internal Medicine 08/05/18 Additional Source Comments The information contained in this document represents components of the legal health record. It is not the complete legal health record.[facility]
== END 2025-03-23 12:02 | disposition home or self-care (01) ==
LOC: HO.HNS 10:58
PROVIDERS: PCP Physician Assistant; Visit Provider Physician Assistant
DX: M54.9 Dorsalgia, unspecified (principal); M54.2 Cervicalgia
CPT/HCPCS: 99213

== ENCOUNTER → 2025-03-23 10:57 | Outpatient (BNVA) | payer MEDICARE, MEDICAID, SELFPAY | PROVIDERS: PCP Physician Assistant; Visit Provider Physician Assistant | DX: M54.2 Cervicalgia (principal); M79.18 Myalgia, other site; Z98.1 Arthrodesis status | CPT/HCPCS: 99212 ==

== ENCOUNTER 2025-04-11 09:28 | Outpatient (AMB) | payer MEDICARE, MEDICAID, SELFPAY ==
--- OUTSIDE RECORDS SUMMARY | 2010-08-01 19:00 | XMS_ITS | Continuity of Care Document ---
Author Organization [facility] vices Address [address] [place] [address] Phone Care Team Providers Care Postdoctoral Fellow Name Role Phone Unavailable Unavailable Unavailable Allergies, Adverse Reactions, Alerts Substance Reaction Status Criticality Penicillins Rash Active No Information Penicillins Itching Active No Information Medications Medication Instructions Dosage Effective Dates (start - stop) Status Comments Suboxone 8 mg-2 mg sublingual tablet SI tab(s) sublingually once a day for 14 day(s) - Active Suboxone 8 mg-2 mg sublingual tablet SI tab(s) sublingually once a day for 14 day(s) - Active Prozac 20 mg capsule SI cap(s) orall y once a day for 21 day(s) - Active Ambien 10 mg tablet SI tab(s) orally once a day (at bedtime) for 21 day(s) - Active Seroquel 25 mg tablet SI tab(s) oral ly 2 times a day for 21 day(s) - Active Suboxone 8 mg-2 mg sublingual tablet SI tab(s) sublingually once a day for 30 day(s) - Active Prozac 20 mg capsule SI cap(s) orall y once a day for 30 day(s) - Active Ambien 10 mg tablet SI tab(s) orally once a day (at bedtime) for 30 day(s) - Active Suboxone 8 mg-2 mg sublingual tablet SI tab(s) sublingually once a day for 14 day(s) - Active quetiapine 25 mg tablet SI tab(s) orally once a day (in the evening) for 30 day(s) - Active fluoxetine oral 40 mg SI tab(s) oral ly once a day for 30 day(s) - Active Nexium 40 mg capsule,delayed release SI cap(s) orally once a day - Active ibuprofen 800 mg tablet SI tab(s) orally every 8 hours PRN(as needed for pain) with food or milk - Active Ventolin HFA 90 mcg/actuation Aerosol Inhaler SI puff(s) inhaled 4 times a day PRN(as needed for wheezing) - Active clonidine oral 0.1 mg SI tab(s) oral ly 3 times a day for 30 day(s) prn as indicated for s/s of opioid withdrawal - Active Procedures Procedure Date INDIVIDUAL PSYCH 45-50 M SPECIMEN HANDLING DRUG SCREEN, QUALITATE/MULTI GROUP PSYCHOTHERAPY GROUP PSYCHOTHERAPY SPECIMEN HANDLING DRUG SCREEN, QUALITATE/MULTI PSYCHIATRIC MEDICATION M PSYCHOTHERAPY, GROUP INDIVIDUAL PSYCH 45-50 M DRUG SCREEN, QUALITATE/MULTI SPECIMEN HANDLING GROUP PSYCHOTHERAPY SPECIMEN HANDLING Blood Drug Screen Multiple Class Procedu re GROUP PSYCHOTHERAPY INDIVIDUAL PSYCH 45-50 M GROUP PSYCHOTHERAPY SPECIMEN HANDLING DRUG SCREEN, QUALITATE/MULTI INDIVIDUAL PSYCH 45-50 M DRUG SCREEN, QUALITATE/MULTI GROUP PSYCHOTHERAPY SPECIMEN HANDLING PSYCHIATRIC MEDICATION M GROUP PSYCHOTHERAPY SPECIMEN HANDLING DRUG SCREEN, QUALITATE/MULTI INDIVIDUAL PSYCH 45-50 M DRUG SCREEN, QUALITATE/MULTI GROUP PSYCHOTHERAPY SPECIMEN HANDLING PSYCHIATRIC MEDICATION M INDIVIDUAL PSYCH 45-50 M DETAILED OUT/PT FLU VACCINE ADULT (3+ YEARS) PSYCHIATRIC MEDICATION M PSYCHIATRIC MEDICATION M INDIVIDUAL PSYCH 45-50 M PSYCHIATRIC MEDICATION M INDIVIDUAL PSYCH 45-50 M DETAILED OUT/PT PSYCHIATRIC MEDICATION M INDIVIDUAL PSYCH 45-50 M INDIVIDUAL PSYCH 45-50 M INDIVIDUAL PSYCH 45-50 M X-RAY, LUMBOSACRAL SPINE DETAILED OUT/PT X-RAY HIP (ONE SIDE, COMPLETE) PSYCHIATRIC MEDICATION M INDIVIDUAL PSYCH 45-50 M INDIVIDUAL PSYCH 45-50 M PSYCHIATRIC DIAGNOSTIC E GLUCOSE, RANDOM (IH) DETAILED OUT/PT DETAILED OUT/PT DETAILED OUT/PT DETAILED OUT/PT HEPATITIS B IMMUNIZATION DETAILED OUT/PT DETAILED OUT/PT PSYCHIATRIC MEDICATION M DETAILED OUT/PT PSYCHIATRIC MEDICATION M MINIMAL OUT/PT PREVENTIVE COUNSELING, INDIV PREVENTIVE COUNSELING, INDIV MINIMAL OUT/PT DETAILED OUT/PT PSYCHIATRIC MEDICATION M PSYCHIATRIC MEDICATION M MINIMAL OUT/PT PREVENTIVE COUNSELING, INDIV EXPANDED OUT/PT PSYCHIATRIC MEDICATION M MINIMAL OUT/PT DETAILED OUT/PT PSYCHIATRIC MEDICATION M DETAILED OUT/PT PSYCHIATRIC MEDICATION M WELL EXAM 40-64 PSYCHIATRIC MEDICATION M PREVENTIVE COUNSELING, INDIV MINIMAL OUT/PT INDIVIDUAL PSYCH 45-50 M PSYTX, OFF, 45-50 MIN W/E&M DETAILED OUT/PT INDIVIDUAL PSYCH 45-50 M INDIVIDUAL PSYCH 45-50 M INDIVIDUAL PSYCH 45-50 M DETAILED OUT/PT PSYTX, OFF, 45-50 MIN SPECIMEN HANDLING DRUG SCREEN, QUALITATE/MULTI MINIMAL OUT/PT INDIVIDUAL PSYCH 45-50 M DETAILED OUT/PT URINALYSIS, NON-AUTOMATE ELECTROCARDIOGRAM, COMPL EYE EXAM ESTABLISHED PAT DETAILED OUT/PT FOCUSED OUT/PT EXPANDED OUT/PT PSYCHIATRIC DIAGNOSTIC E FOCUSED OUT/PT PREVENTIVE COUNSELING, INDIV DETAILED OUT/PT DETAILED OUT/PT DETAILED OUT/PT EXPANDED OUT/PT EXPANDED OUT/PT NEW Level 3 - Detailed STREP, GRP A DIRECT PROB Advance Directives Directive Yes / No Effective Date File Name No Information Encounters Encounter Description Practice Location Reason(s) For Visit Diagnoses Date Provider Providers Copied on Encounter [facility], [address] [place] [address], [facility], tel:[phone] [facility] No Information 1 No Information [facility], [address] [place] [address], [facility], tel:[phone] Conversion AXIS V GLOBAL ASSESS OF FUNCTIONING (GAF) SCALE ___ (100-0) 1 No Information [facility], [address] [place] [address], [facility], tel:[phone] Conversion No Information 1 No Information [facility], [address] [place] [address], [facility], tel:[phone] Conversion No Information Feb-0 1-201 1 No Information [facility], [address] [place], [address], [place] tel:[phone] [facility] No Information Adin-0 5-201 1 No Information GROUP PSYCHOTHERAPY [facility], [address] [place], [address], [place] tel:[phone] [facility] No Information Adin-0 3-201 1 No Information GROUP PSYCHOTHERAPY [facility], [address] [place], [address], [place] tel:[phone] [facility] No Information Dec-2 0-201 0 No Information [facility], [address] [place], [address], [place] tel:[phone] [facility] No Information Dec-1 5-201 0 No Information [facility], [address] [place] [address], [address], [place] tel:[phone] [facility] No Information Dec-1 5-201 0 No Information PSYCHOTHERAPY, GROUP [facility], [address] [place] [address], [address], [place] tel:[phone] [facility] No Information Dec-1 3-201 0 No Information [facility], [address] [place], [address], [place] tel:[phone] [facility] No Information Dec-0 7-201 0 No Information GROUP PSYCHOTHERAPY [facility], [address] [place] [address], [address], [place] tel:[phone] [facility] No Information Dec-0 6-201 0 No Information GROUP PSYCHOTHERAPY [facility], [address] [place] [address], [address], [place] tel:[phone] [facility] No Information Nov-2 9-201 0 No Information [facility], [address] [place] [address], [address], [place] tel:[phone] [facility] No Information Nov-2 4-201 0 No Information GROUP PSYCHOTHERAPY [facility], [address] [place] [address], [address], [place] tel:[phone] [facility] No Information Nov-2 2-201 0 No Information [facility], [address] [place], [address], [place] tel:[phone] [facility] No Information Nov-1 6-201 0 No Information GROUP PSYCHOTHERAPY [facility], [address] [place] [address], [facility], [place] tel:[phone] [facility] No Information Nov-1 5-201 0 No Information [facility], [address] [place] [address], [facility], [place] tel:[phone] [facility] No Information Nov-0 9-201 0 No Information GROUP PSYCHOTHERAPY [facility], [address] [place] [address], [address], [place] tel:[phone] [facility] No Information Nov-0 8-201 0 No Information [facility], [address] [place] [address], [facility], [place] tel:[phone] [facility] No Information Nov-0 4-201 0 No Information GROUP PSYCHOTHERAPY [facility], [address] [place] [address], [facility], [place] tel:[phone] [facility] No Information Nov-0 1-201 0 No Information [facility], [address] [place] [address], [address], [place] tel:[phone] [facility] No Information Feb-2 9 0 No Information [facility], [address] [place] [address], [address], [place] tel:[phone] [facility] No Information Feb-2 6- 0 No Information [facility], [address] [place] [address], [address], [place] tel:[phone] Historic Immunization Location No Information Feb-2 6-201 0 No Information DETAILED OUT/PT [facility], [address] [place] [address], [address], [place] tel:[phone] [facility] No Information Feb-2 6- 0 No Information [facility], [address] [place] [address], [address], [place] tel:[phone] Conversion No Information Feb-2 5-201 0 No Information [facility], [address] [place] [address], [address], [place] tel:[phone] [facility] No Information Oct-2 5-201 0 No Information [facility], [address] [place] [address], [address], [place] tel:[phone] Conversion No Information Oct-2 0-201 0 No Information [facility], [address] [place] [address], [address], [place] tel:[phone] [facility] No Information Oct-2 0-201 0 No Information [facility], [address] [place] [address], [address], [place] tel:[phone] [facility] No Information Sep-3 0-201 0 No Information [facility], [address] [place] [address], [address], [place] tel:[phone] Conversion ALCOHOL ABUSE Sep-3 0-201 0 No Information [facility], [address] [place] [address], [address], [place] tel:[phone] Conversion COUNSELING ON SUBSTANCE USE AND ABUSELACK OF PHYSICAL EXERCISE Sep-2 7-201 0 No Information [facility], [address] [place] [address], [address], [place] tel:[phone] [facility] No Information Sep-2 0-201 0 No Information [facility], [address] [place] [address], [address], [place] tel:[phone] Conversion No Information Sep-2 0-201 0 No Information [facility], [address] [place] [address], [address], [place] tel:[phone] [facility] No Information Sep-0 9-201 0 No Information DETAILED OUT/PT [facility], [address] [place] [address], [address], [place] tel:[phone] [facility] No Information Dec-2 4 0 No Information [facility], [address] [place] [address], [address], [place] tel:[phone] Conversion No Information Aug-2 4-201 0 No Information [facility], [address] [place] [address], [address], [place] tel:[phone] Conversion NONDEPENDENT ABUSE OF DRUGS, OPIOID ABUSE, EPISODICANXIE TY STATE, UNSPECIFIEDHY POGLYCEMIA UNSPECIFIED, NON-DIABETIC 0 No Information [facility], [address] [place] [address], [address], [place] tel:[phone] [facility] No Information 0 No Information [facility], [address] [place] [address], [address], [place] tel:[phone] [facility] No Information 0 No Information [facility], [address] [place] [address], [address], [place] tel:[phone] [facility] No Information 0 No Information [facility], [address] [place] [address], [address], [place] tel:[phone] [facility] No Information 0 No Information DETAILED OUT/PT [facility], [address] [place] [address], [address], [place] tel:[phone] [facility] No Information 0 No Information [facility], [address] [place] [address], [address], [place] tel:[phone] Conversion REFLUX ESOPHAGITISFA TIGUE/MALAISE NONDEPENDENT ABUSE OF DRUGS, OPIOID ABUSE, IN REMISSION 0 No Information [facility], [address] [place] [address], [address], [place] tel:[phone] Conversion 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 0 No Information [facility], [address] [place] [address], [address], [place] tel:[phone] [facility] No Information 0 No Information [facility], [address] [place] [address], [address], [place] tel:[phone] [facility] No Information 0 No Information [facility], [address] [place] [address], [address], [place] tel:[phone] [facility] No Information 0 No Information [facility], [address] [place] [address], [address], [place] tel:[phone] [facility] No Information 0 No Information [facility], [address] [place] [address], [facility], [place] tel:[phone] [facility] No Information 0 No Information [facility], [address] [place] [address], [facility], [place] tel:[phone] Conversion COCAINE DEPENDENCE, EPISODICOSTEO ARTHROSIS, GENERALIZED, SITE UNSPECIFIED 0 No Information [facility], [address] [place] [address], [facility], [place] tel:[phone] Conversion HUMAN IMMUNODEFICIE NCY VIRUS [HIV] DISEASE 0 No Information [facility], [address] [place] [address], [facility], [place] tel:[phone] Conversion HEPATITIS C (CHRONIC)DELGADO ETT'S ESOPHAGUSOTHE R AND UNSPECIFIED ALCOHOL DEPENDENCE, IN REMISSION 9 No Information [facility]AILED OUT[facility], [address] [place] [address], [facility], [place] tel:[phone] [facility] No Information 9 No Information DETAILED OUT/PT [facility], [address] [place] [address], [facility], [place] tel:[phone] [facility] No Information 9 No Information [facility], [address] [place] [address], [facility], [place] tel:[phone] Conversion INSOMNIA, UNSPECIFIEDOT HER CHRONIC PAIN 9 No Information DETAILED OUT/PT [facility], [address] [place] [address], [facility], [place] tel:[phone] [facility] No Information 9 No Information [facility], [address] [place] [address], [facility], [place] tel:[phone] Conversion CHOLELITHIASI SESOPHAGITIS UNSPECIFIEDMO TTLED TEETHNONDEPEN DENT OTHER MIXED OR UNSPECIFIED DRUG ABUSE IN REMISSION 9 No Information DETAILED OUT/PT [facility], [address] [place] [address], [facility], [place] tel:[phone] [facility] No Information 9 No Information [facility], [address] [place] [address], [address], [place] tel:[phone] Conversion HEARTBURNCALC ULUS OF GALLBLADDER WITH OTHER CHOLECYSTITIS WITHOUT OBSTRUCTIONOT HER SPECIFIED ASTHMA 9 No Information [facility], [address] [place] [address], [address], [place] tel:[phone] Conversion ACUTE PAINACUTE CHOLECYSTITIS 9 No Information DETAILED OUT/PT [facility], [address] [place] [address], [address], [place] tel:[phone] [facility] No Information 9 No Information DETAILED OUT/PT [facility], [address] [place] [address], [address], [place] tel:[phone] [facility] No Information 9 No Information [facility], [address] [place] [address], [address], [place] tel:[phone] Conversion UNSPECIFIED ESSENTIAL HYPERTENSIONP REMENOPAUSAL MENORRHAGIA 9 No Information [facility], [address] [place] [address], [address], [place] tel:[phone] [facility] No Information 0 8 No Information [facility], [address] [place] [address], [address], [place] tel:[phone] Conversion ESOPHAGEAL REFLUX 8 No Information DETAILED OUT/PT [facility], [address] [place] [address], [address], [place] tel:[phone] [facility] No Information 200 8 No Information [facility], [address] [place] [address], [address], [place] tel:[phone] [facility] No Information Sep-0 9200 8 No Information MINIMAL OUT/PT [facility], [address] [place] [address], [address], [place] tel:[phone] [facility] No Information Sep-0 2200 8 No Information PREVENTIVE COUNSELING, INDIV [facility], [address] [place] [address], [address], [place] tel:[phone] [facility] No Information Dec-0 4-200 8 No Information DETAILED OUT/PT [facility], [address] [place], [address], [place] tel:[phone] [facility] No Information Nov-1 4-200 8 No Information [facility], [address] [place], [address], [place] tel:[phone] [facility] No Information Nov-0 8-200 8 No Information [facility], [address] [place], [address], [place] tel:[phone] [facility] No Information Vasyl-2 3-200 8 No Information MINIMAL OUT/PT [facility], [address] [place], [address], [place] tel:[phone] [facility] No Information Vasyl-1 8-200 8 No Information EXPANDED OUT/PT [facility], [address] [place], [address], [place] tel:[phone] [facility] No Information Vasyl-0 7-200 8 No Information [facility], [address] [place], [address], [place] tel:[phone] [facility] No Information September-2 2-200 8 No Information MINIMAL OUT/PT [facility], [address] [place] [address], [address], [place] tel:[phone] [facility] No Information September-1 3-200 8 No Information DETAILED OUT/PT [facility], [address] [place], [address], [place] tel:[phone] [facility] No Information September-1 2-200 8 No Information [facility], [address] [place] [address], [address], [place] tel:[phone] Conversion UNSPECIFIED DRUG DEPENDENCE UNSPECIFIED USE May-0 6-200 8 No Information [facility], [address] [place] [address], [address], [place] tel:[phone] [facility] No Information September-0 6-200 8 No Information DETAILED OUT/PT [facility], [address] [place], [address], [place] tel:[phone] [facility] No Information May-0 5-200 8 No Information [facility], [address] [place] [address], [address], [place] tel:[phone] Conversion DIZZINESS AND GIDDINESSANEM IA UNSPECIFIED May-0 5-200 8 No Information [facility], [address] [place] [address], [address], [place] tel:[phone] [facility] No Information Apr-2 9-200 8 No Information [facility], [address] [place] [address], [address], [place] tel:[phone] Conversion COMBINATIONS OF DRUG DEPENDENCE EXCLUDING OPIOID TYPE DRUG UNSPECIFIED USE Apr-2 9-200 8 No Information WELL EXAM 40-64 [facility], [address] [place] [address], [address], [place] tel:[phone] [facility] No Information Apr-2 4-200 8 No Information [facility], [address] [place] [address], [address], [place] tel:[phone] Conversion ROUTINE GYNECOLOGICAL EXAMINATION Apr-2 4-200 8 No Information [facility], [address] [place] [address], [address], [place] tel:[phone] [facility] No Information Apr-2 4-200 8 No Information PREVENTIVE COUNSELING, INDIV [facility], [address] [place] [address], [address], [place] tel:[phone] [facility] No Information Apr-2 2-200 8 No Information [facility], [address] [place] [address], [address], [place] tel:[phone] [facility] No Information Apr-0 8-200 8 No Information [facility], [address] [place] [address], [address], [place] tel:[phone] [facility] No Information Apr-0 3-200 8 No Information DETAILED OUT/PT [facility], [address] [place] [address], [address], [place] tel:[phone] [facility] No Information Apr-0 2-200 8 No Information [facility], [address] [place] [address], [facility], [place] tel:[phone] [facility] No Information Jul-2 0-200 8 No Information [facility], [address] [place] [address], [address], [place] tel:[phone] [facility] No Information Jul- 3200 8 No Information [facility], [address] [place] [address], [address], [place] tel:[phone] [facility] No Information Feb-2 8200 8 No Information [facility], [address] [place] [address], [address], [place] tel:[phone] Conversion MAJOR DEPRESSIVE AFFECTIVE DISORDER RECURRENT EPISODE MODERATE DEGREE Feb-2 8 8 No Information DETAILED OUT/PT [facility], [address] [place] [address], [facility], [place] tel:[phone] [facility] No Information Feb-2 7 8 No Information [facility], [address] [place] [address], [facility], [place] tel:[phone] [facility] No Information b-2 200 8 No Information MINIMAL OUT/PT [facility], [address] [place] [address], [address], [place] tel:[phone] [facility] No Information b-1 8200 8 No Information [facility], [address] [place] [address], [address], [place] tel:[phone] [facility] No Information Feb-0 7 8 No Information [facility], [address] [place] [address], [address], [place] tel:[phone] Conversion COCAINE DEPENDENCEMAJ OR DEPRESSION, RECURRENT Feb-0 7200 8 No Information DETAILED OUT/PT [facility], [address] [place] [address], [address], [place] tel:[phone] [facility] No Information 0 8 No Information [facility], [address] [place] [address], [address], [place] tel:[phone] Conversion FLU SHOTROUTINE GENERAL MEDICAL EXAMINATION 0 8 No Information DETAILED OUT/PT [facility], [address] [place] [address], [address], [place] tel:[phone] [facility] No Information 8 No Information [facility], [address] [place] [address], [address], [place] tel:[phone] Conversion ENCOUNTERS FOR UNSPECIFIED ADMINISTRATIV E PURPOSE 8 No Information FOCUSED OUT/PT [facility], [address] [place] [address], [address], [place] tel:[phone] [facility] No Information 8 No Information [facility], [address] [place] [address], [address], [place] tel:[phone] Conversion SYMPTOMATIC MENOPAUSAL OR FEMALE CLIMACTERIC STATESUNSPECI FIED VIRAL HEPATITIS CSCREENING EXAMINATION FOR PULMONARY TUBERCULOSIS 8 No Information EXPANDED OUT/PT [facility], [address] [place] [address], [address], [place] tel:[phone] [facility] No Information 8 No Information [facility], [address] [place] [address], [address], [place] tel:[phone] Conversion ALCOHOL DEPENDENCEOPI OID DEPENDENCEDEP RESSIVE DISORDER, NOT ELSEWHERE CLASSIFIED 8 No Information [facility], [address] [place] [address], [address], [place] tel:[phone] [facility] Behavioral [facility] No Information 8 No Information FOCUSED OUT/PT [facility], [address] [place] [address], [address], [place] tel:[phone] [facility] No Information 7 No Information DETAILED OUT/PT [facility], [address] [place] [address], [address], [place] tel:[phone] [facility] No Information 7 No Information [facility], [address] [place] [address], [address], [place] tel:[phone] Conversion BRONCHITIS, ACUTE 7 No Information DETAILED OUT/PT [facility], [address] [place] [address], [address], [place] tel:[phone] [facility] No Information 7 No Information DETAILED OUT/PT [facility], [address] [place] [address], [address], [place] tel:[phone] [facility] No Information 7 No Information [facility], [address] [place] [address], [address], [place] tel:[phone] Conversion HYPOTHYROIDIS M, UNSPECIFIED AQUIREDHEPATI TIS C WITHOUT MENTION OF HEPATIC COMA 7 No Information EXPANDED OUT/PT [facility], [address] [place] [address], [address], [place] tel:[phone] [facility] No Information No Information EXPANDED OUT/PT [facility], [address] [place] [address], [facility], [place] tel:[phone] [facility] No Information 7 No Information [facility], [address] [place] [address], [facility], [place] tel:[phone] Conversion SCREENING EXAMINATION FOR VENEREAL DISEASETORTIC OLLIS UNSPECIFIED 7 No Information NEW Level 3 - Detailed [facility], [address] [place] [address], [address], [place] tel:[phone] [facility] No Information 7 No Information [facility], [address] [place] [address], [facility], [place] tel:[phone] Conversion PNEUMONIA ORGANISM UNSPECIFIEDCO [facility] 7 No Information Family History Family Member Type Diagnosis Age At Onset No Information Immunizations Vaccine Date Status Comments FLU VACCINE ADULT (3+ YEARS) administered Source: New Immunization Record HEPATITIS B IMMUNIZATION administered Ladan rce: New Immunization Record Payers Payer name Insurance type [employer] party ID Authoriza tion(s) No Information Social History Type Description Quantity Date Captured Comments Sex Female Smoking Status No Information Chief Complaint And Reason For Visit No Information Reason For Referral Reason For Referral No Information History Of Present Illness Encounter Date Complaint History Of Prese nt Illness No Information Functional Status Date Functional Assessmen t No Information Instructions Date Instruction Additional Infor mation No Information Assessments Type Assessment Date No Information Patient Care Teams Name Effective Dates (start - stop) Status Members No Information
--- OUTSIDE RECORDS SUMMARY | 2010-08-01 19:00 | XMS_ITS | Continuity of Care Document ---
Author Organization [facility] Address [address] [place] [address] Phone Care Team Providers Care [employer] Worker Name Role Phone Unavailable Unavailable Unavailable Allergies, [...] Diagnoses Date Provider Providers Copied on Encounter [facility], [address] [place] [address], [facility], tel:[phone] [facility] No Information 1 No Information [facility], [address] [place] [address], [facility], tel:[phone] Conversion AXIS V GLOBAL ASSESS OF FUNCTIONING (GAF) SCALE ___ (100-0) 1 No Information [facility], [address] [place] [address], [facility], tel:[phone] Conversion No Information 1 No Information [facility], [address] [place] [address], [facility], tel:[phone] Conversion No Information Feb-0 1-201 1 No Information [facility], [address] [place], [address], [place] tel:[phone] [facility] No Information Adin-0 5-201 1 No Information GROUP PSYCHOTHERAPY Count Includes [facility], [address] [place], [address], [place] tel:[phone] [facility] No Information Adin-0 3-201 1 No Information GROUP PSYCHOTHERAPY Count Includes [facility], [address] [place], [address], [place] tel:[phone] [facility] No Information Dec-2 0-201 0 No Information [facility], [address] [place], [address], [place] tel:[phone] [facility] No Information Dec-1 5-201 0 No Information Count Includes [facility], [address] [place] [address], [address], [place] tel:[phone] [facility] No Information Dec-1 5-201 0 No Information PSYCHOTHERAPY, GROUP Count Includes [facility], [address] [place] [address], [address], [place] tel:[phone] [facility] No Information Dec-1 3-201 0 No Information [facility], [address] [place], [address], [place] tel:[phone] [facility] No Information Dec-0 7-201 0 No Information GROUP PSYCHOTHERAPY Count Includes [facility], [address] [place] [address], [address], [place] tel:[phone] [facility] No Information Dec-0 6-201 0 No Information GROUP PSYCHOTHERAPY Count Includes [facility], [address] [place] [address], [address], [place] tel:[phone] [facility] No Information Nov-2 9-201 0 No Information [facility], [address] [place] [address], [address], [place] tel:[phone] [facility] No Information Nov-2 4-201 0 No Information GROUP PSYCHOTHERAPY Count Includes [facility], [address] [place] [address], [address], [place] tel:[phone] [facility] No Information Nov-2 2-201 0 No Information [facility], [address] [place], [address], [place] tel:[phone] [facility] No Information Nov-1 6-201 0 No Information GROUP PSYCHOTHERAPY [facility], [address] [place] [address], [facility], [place] tel:[phone] [facility] No Information Nov-1 5-201 0 No Information [facility], [address] [place] [address], [facility], [place] tel:[phone] [facility] No Information Nov-0 9-201 0 No Information GROUP PSYCHOTHERAPY [facility], [address] [place] [address], [address], [place] tel:[phone] [facility] No Information Nov-0 8-201 0 No Information [facility], [address] [place] [address], [facility], [place] tel:[phone] [facility] No Information Nov-0 4-201 0 No Information GROUP PSYCHOTHERAPY [facility], [address] [place] [address], [facility], [place] tel:[phone] [facility] No Information Nov-0 1-201 0 No Information [facility], [address] [place] [address], [address], [place] tel:[phone] [facility] No Information Feb-2 9 0 No Information [facility], [address] [place] [address], [address], [place] tel:[phone] [facility] No Information Feb-2 6- 0 No Information [facility], [address] [place] [address], [address], [place] tel:[phone] Historic Immunization Location No Information Feb-2 6-201 0 No Information DETAILED OUT/PT [facility], [address] [place] [address], [address], [place] tel:[phone] [facility] Adult [facility] No Information Feb-2 6- 0 No Information [facility], [address] [place] [address], [address], [place] tel:[phone] Conversion No Information Feb-2 5-201 0 No Information [facility], [address] [place] [address], [address], [place] tel:[phone] [facility] No Information Oct-2 5-201 0 No Information Count Includes [facility], [address] [place] [address], [address], [place] tel:[phone] Conversion No Information Oct-2 0-201 0 No Information Count Includes [facility], [address] [place] [address], [address], [place] tel:[phone] [facility] No Information Oct-2 0-201 0 No Information [facility], [address] [place] [address], [address], [place] tel:[phone] [facility] No Information Sep-3 0-201 0 No Information Count Includes [facility], [address] [place] [address], [address], [place] tel:[phone] Conversion ALCOHOL ABUSE Sep-3 0-201 0 No Information Count Includes [facility], [address] [place] [address], [address], [place] tel:[phone] Conversion COUNSELING ON SUBSTANCE USE AND ABUSELACK OF PHYSICAL EXERCISE Sep-2 7-201 0 No Information Count Includes [facility], [address] [place] [address], [address], [place] tel:[phone] [facility] No Information Sep-2 0-201 0 No Information Count Includes [facility], [address] [place] [address], [address], [place] tel:[phone] Conversion No Information Sep-2 0-201 0 No Information Count Includes [facility], [address] [place] [address], [address], [place] tel:[phone] [facility] No Information Sep-0 9-201 0 No Information DETAILED OUT/PT Count Includes [facility], [address] [place] [address], [address], [place] tel:[phone] [facility] No Information Dec-2 4 0 No Information Count Includes [facility], [address] [place] [address], [address], [place] tel:[phone] Conversion No Information Aug-2 4-201 0 No Information Count Includes [facility], [address] [place] [address], [address], [place] tel:[phone] Conversion NONDEPENDENT ABUSE OF DRUGS, OPIOID ABUSE, EPISODICANXIE TY STATE, UNSPECIFIEDHY POGLYCEMIA UNSPECIFIED, NON-DIABETIC 0 No Information [facility], [address] [place] [address], [address], [place] tel:[phone] [facility] No Information 0 No Information [facility], [address] [place] [address], [address], [place] tel:[phone] [facility] No Information 0 No Information [facility], [address] [place] [address], [address], [place] tel:[phone] [facility] No Information 0 No Information [facility], [address] [place] [address], [address], [place] tel:[phone] [facility] No Information 0 No Information DETAILED OUT/PT Count Includes [facility], [address] [place] [address], [address], [place] tel:[phone] [facility] No Information 0 No Information [facility], [address] [place] [address], [address], [place] tel:[phone] Conversion REFLUX ESOPHAGITISFA TIGUE/MALAISE NONDEPENDENT ABUSE OF DRUGS, OPIOID ABUSE, IN REMISSION 0 No Information Count Includes [facility], [address] [place] [address], [address], [place] tel:[phone] Conversion 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 0 No Information [facility], [address] [place] [address], [address], [place] tel:[phone] [facility] No Information 0 No Information [facility], [address] [place] [address], [address], [place] tel:[phone] [facility] No Information 0 No Information [facility], [address] [place] [address], [address], [place] tel:[phone] [facility] No Information 0 No Information [facility], [address] [place] [address], [address], [place] tel:[phone] [facility] No Information 0 No Information [facility], [address] [place] [address], [facility], [place] tel:[phone] [facility] No Information 0 No Information [facility], [address] [place] [address], [facility], [place] tel:[phone] Conversion COCAINE DEPENDENCE, EPISODICOSTEO ARTHROSIS, GENERALIZED, SITE UNSPECIFIED 0 No Information [facility], [address] [place] [address], [facility], [place] tel:[phone] Conversion HUMAN IMMUNODEFICIE NCY VIRUS [HIV] DISEASE 0 No Information [facility], [address] [place] [address], [facility], [place] tel:[phone] Conversion HEPATITIS C (CHRONIC)DELGADO ETT'S ESOPHAGUSOTHE R AND UNSPECIFIED ALCOHOL DEPENDENCE, IN REMISSION 9 No Information [facility]AILED OUT[facility], [address] [place] [address], [facility], [place] tel:[phone] [facility] No Information 9 No Information DETAILED OUT/PT [facility], [address] [place] [address], [facility], [place] tel:[phone] [facility] No Information 9 No Information [facility], [address] [place] [address], [facility], [place] tel:[phone] Conversion INSOMNIA, UNSPECIFIEDOT HER CHRONIC PAIN 9 No Information DETAILED OUT/PT [facility], [address] [place] [address], [facility], [place] tel:[phone] [facility] No Information 9 No Information [facility], [address] [place] [address], [facility], [place] tel:[phone] Conversion CHOLELITHIASI SESOPHAGITIS UNSPECIFIEDMO TTLED TEETHNONDEPEN DENT OTHER MIXED OR UNSPECIFIED DRUG ABUSE IN REMISSION 9 No Information DETAILED OUT/PT [facility], [address] [place] [address], [facility], [place] tel:[phone] [facility] No Information 9 No Information [facility], [address] [place] [address], [address], [place] tel:[phone] Conversion HEARTBURNCALC ULUS OF GALLBLADDER WITH OTHER CHOLECYSTITIS WITHOUT OBSTRUCTIONOT HER SPECIFIED ASTHMA 9 No Information [facility], [address] [place] [address], [address], [place] tel:[phone] Conversion ACUTE PAINACUTE CHOLECYSTITIS 9 No Information DETAILED OUT/PT [facility], [address] [place] [address], [address], [place] tel:[phone] [facility] No Information 9 No Information DETAILED OUT/PT [facility], [address] [place] [address], [address], [place] tel:[phone] [facility] No Information 9 No Information [facility], [address] [place] [address], [address], [place] tel:[phone] Conversion UNSPECIFIED ESSENTIAL HYPERTENSIONP REMENOPAUSAL MENORRHAGIA 9 No Information [facility], [address] [place] [address], [address], [place] tel:[phone] [facility] No Information 0 8 No Information [facility], [address] [place] [address], [address], [place] tel:[phone] Conversion ESOPHAGEAL REFLUX 8 No Information DETAILED OUT/PT [facility], [address] [place] [address], [address], [place] tel:[phone] [facility] No Information 200 8 No Information [facility], [address] [place] [address], [address], [place] tel:[phone] [facility] No Information Sep-0 9200 8 No Information MINIMAL OUT/PT [facility], [address] [place] [address], [address], [place] tel:[phone] [facility] No Information Sep-0 2200 8 No Information PREVENTIVE COUNSELING, INDIV [facility], [address] [place] [address], [address], [place] tel:[phone] [facility] No Information Dec-0 4-200 8 No Information DETAILED OUT/PT [facility], [address] [place], [address], [place] tel:[phone] [facility] No Information Nov-1 4-200 8 No Information [facility], [address] [place], [address], [place] tel:[phone] [facility] No Information Nov-0 8-200 8 No Information [facility], [address] [place], [address], [place] tel:[phone] [facility] No Information Vasyl-2 3-200 8 No Information MINIMAL OUT/PT [facility], [address] [place], [address], [place] tel:[phone] [facility] No Information Vasyl-1 8-200 8 No Information EXPANDED OUT/PT [facility], [address] [place], [address], [place] tel:[phone] [facility] No Information Vasyl-0 7-200 8 No Information [facility], [address] [place], [address], [place] tel:[phone] [facility] No Information September-2 2-200 8 No Information MINIMAL OUT/PT [facility], [address] [place] [address], [address], [place] tel:[phone] [facility] No Information September-1 3-200 8 No Information DETAILED OUT/PT [facility], [address] [place], [address], [place] tel:[phone] [facility] No Information September-1 2-200 8 No Information [facility], [address] [place] [address], [address], [place] tel:[phone] Conversion UNSPECIFIED DRUG DEPENDENCE UNSPECIFIED USE May-0 6-200 8 No Information [facility], [address] [place] [address], [address], [place] tel:[phone] [facility] No Information September-0 6-200 8 No Information DETAILED OUT/PT [facility], [address] [place], [address], [place] tel:[phone] [facility] No Information May-0 5-200 8 No Information [facility], [address] [place] [address], [address], [place] tel:[phone] Conversion DIZZINESS AND GIDDINESSANEM IA UNSPECIFIED May-0 5-200 8 No Information [facility], [address] [place] [address], [address], [place] tel:[phone] [facility] No Information Apr-2 9-200 8 No Information [facility], [address] [place] [address], [address], [place] tel:[phone] Conversion COMBINATIONS OF DRUG DEPENDENCE EXCLUDING OPIOID TYPE DRUG UNSPECIFIED USE Apr-2 9-200 8 No Information WELL EXAM 40-64 Count Includes [facility], [address] [place] [address], [address], [place] tel:[phone] [facility] No Information Apr-2 4-200 8 No Information [facility], [address] [place] [address], [address], [place] tel:[phone] Conversion ROUTINE GYNECOLOGICAL EXAMINATION Apr-2 4-200 8 No Information [facility], [address] [place] [address], [address], [place] tel:[phone] [facility] No Information Apr-2 4-200 8 No Information PREVENTIVE COUNSELING, INDIV [facility], [address] [place] [address], [address], [place] tel:[phone] [facility] No Information Apr-2 2-200 8 No Information [facility], [address] [place] [address], [address], [place] tel:[phone] [facility] No Information Apr-0 8-200 8 No Information Count Includes [facility], [address] [place] [address], [address], [place] tel:[phone] [facility] No Information Apr-0 3-200 8 No Information DETAILED OUT/PT Count Includes [facility], [address] [place] [address], [address], [place] tel:[phone] [facility] No Information Apr-0 2-200 8 No Information Count Includes [facility], [address] [place] [address], [facility], [place] tel:[phone] [facility] No Information Jul-2 0-200 8 No Information [facility], [address] [place] [address], [address], [place] tel:[phone] [facility] No Information Jul- 3200 8 No Information [facility], [address] [place] [address], [address], [place] tel:[phone] [facility] No Information Feb-2 8200 8 No Information [facility], [address] [place] [address], [address], [place] tel:[phone] Conversion MAJOR DEPRESSIVE AFFECTIVE DISORDER RECURRENT EPISODE MODERATE DEGREE Feb-2 8 8 No Information DETAILED OUT/PT [facility], [address] [place] [address], [facility], [place] tel:[phone] [facility] No Information Feb-2 7 8 No Information [facility], [address] [place] [address], [facility], [place] tel:[phone] [facility] No Information b-2 200 8 No Information MINIMAL OUT/PT [facility], [address] [place] [address], [address], [place] tel:[phone] [facility] No Information b-1 8200 8 No Information [facility], [address] [place] [address], [address], [place] tel:[phone] [facility] No Information Feb-0 7 8 No Information [facility], [address] [place] [address], [address], [place] tel:[phone] Conversion COCAINE DEPENDENCEMAJ OR DEPRESSION, RECURRENT Feb-0 7200 8 No Information DETAILED OUT/PT [facility], [address] [place] [address], [address], [place] tel:[phone] [facility] No Information 0 8 No Information [facility], [address] [place] [address], [address], [place] tel:[phone] Conversion FLU SHOTROUTINE GENERAL MEDICAL EXAMINATION 0 8 No Information DETAILED OUT/PT [facility], [address] [place] [address], [address], [place] tel:[phone] [facility] No Information 8 No Information [facility], [address] [place] [address], [address], [place] tel:[phone] Conversion ENCOUNTERS FOR UNSPECIFIED ADMINISTRATIV E PURPOSE 8 No Information FOCUSED OUT/PT [facility], [address] [place] [address], [address], [place] tel:[phone] [facility] No Information 8 No Information [facility], [address] [place] [address], [address], [place] tel:[phone] Conversion SYMPTOMATIC MENOPAUSAL OR FEMALE CLIMACTERIC STATESUNSPECI FIED VIRAL HEPATITIS CSCREENING EXAMINATION FOR PULMONARY TUBERCULOSIS 8 No Information EXPANDED OUT/PT [facility], [address] [place] [address], [address], [place] tel:[phone] [facility] No Information 8 No Information [facility], [address] [place] [address], [address], [place] tel:[phone] Conversion ALCOHOL DEPENDENCEOPI OID DEPENDENCEDEP RESSIVE DISORDER, NOT ELSEWHERE CLASSIFIED 8 No Information [facility], [address] [place] [address], [address], [place] tel:[phone] [facility] No Information 8 No Information FOCUSED OUT/PT [facility], [address] [place] [address], [address], [place] tel:[phone] [facility] No Information 7 No Information DETAILED OUT/PT [facility], [address] [place] [address], [address], [place] tel:[phone] [facility] No Information 7 No Information [facility], [address] [place] [address], [address], [place] tel:[phone] Conversion BRONCHITIS, ACUTE 7 No Information DETAILED OUT/PT [facility], [address] [place] [address], [address], [place] tel:[phone] [facility] No Information 7 No Information DETAILED OUT/PT [facility], [address] [place] [address], [address], [place] tel:[phone] [facility] No Information 7 No Information [facility], [address] [place] [address], [address], [place] tel:[phone] Conversion HYPOTHYROIDIS M, UNSPECIFIED AQUIREDHEPATI TIS C WITHOUT MENTION OF HEPATIC COMA 7 No Information EXPANDED OUT/PT [facility], [address] [place] [address], [address], [place] tel:[phone] [facility] Adult [facility] No Information No Information EXPANDED OUT/PT Count Includes [facility], [address] [place] [address], [facility], [place] tel:[phone] [facility] Adult [facility] No Information 7 No Information [facility], [address] [place] [address], [facility], [place] tel:[phone] Conversion SCREENING EXAMINATION FOR VENEREAL DISEASETORTIC OLLIS UNSPECIFIED 7 No Information NEW Level 3 - Detailed [facility], [address] [place] [address], [address], [place] tel:[phone] [facility] No Information 7 No Information [facility], [address] [place] [address], [facility], [place] tel:[phone] Conversion PNEUMONIA ORGANISM UNSPECIFIEDCO UGH 7 No Information Family History Family Member Type Diagnosis Age At Onset No Information Immunizations Vaccine Date Status Comments FLU VACCINE ADULT (3+ YEARS) administered Source: New Immunization Record HEPATITIS B IMMUNIZATION administered Ladan rce: New Immunization Record Payers Payer name Insurance type Covered republican ID Authoriza tion(s) No Information Social History [...]
--- OUTSIDE RECORDS SUMMARY | 2010-08-01 19:00 | XMS_ITS | Continuity of Care Document ---
Author Organization [facility] vices Address [address] [place] [address] Phone Care Team Providers Care Journalism Professor Name Role Phone Unavailable Unavailable Unavailable Allergies, Adverse Reactions, Alerts Substance Reaction Status Criticality Penicillins Rash Active No Information Penicillins Itching Active No Information Medications Medication Instructions Dosage Effective Dates (start - stop) Status Comments Suboxone 8 mg-2 mg sublingual tablet SI tab(s) sublingually once a day for 14 day(s) - Active Seroquel 25 mg tablet SI tab(s) oral ly 2 times a day for 21 day(s) - Active Ambien 10 mg tablet SI tab(s) orally once a day (at bedtime) for 21 day(s) - Active Prozac 20 mg capsule SI cap(s) orall y once a day for 21 day(s) - Active Suboxone 8 mg-2 mg sublingual tablet SI tab(s) sublingually once a day for 14 day(s) - Active Ambien 10 mg tablet SI tab(s) orally once a day (at bedtime) for 30 day(s) - Active Prozac 20 mg capsule SI cap(s) orall y once a day for 30 day(s) - Active Suboxone 8 mg-2 mg sublingual tablet SI tab(s) sublingually once a day for 30 day(s) - Active Suboxone 8 [...] Diagnoses Date Provider Providers Copied on Encounter [facility], [address] [place] [address], [facility], tel:[phone] [facility] Behavioral Health No Information 1 No Information [facility], [address] [place] [address], [facility], tel:[phone] Conversion AXIS V GLOBAL ASSESS OF FUNCTIONING (GAF) SCALE ___ (100-0) 1 No Information [facility], [address] [place] [address], [facility], tel:[phone] Conversion No Information 1 No Information [facility], [address] [place] [address], [facility], tel:[phone] Conversion No Information Feb-0 1-201 1 No Information [facility], [address] [place], [address], [place] tel:[phone] [facility] Behavioral Health No Information Adin-0 5-201 1 No Information GROUP PSYCHOTHERAPY [facility], [address] [place], [address], [place] tel:[phone] [facility] Behavioral Health No Information Adin-0 3-201 1 No Information GROUP PSYCHOTHERAPY [facility], [address] [place], [address], [place] tel:[phone] [facility] Behavioral Health No Information Dec-2 0-201 0 No Information [facility], [address] [place], [address], [place] tel:[phone] [facility] No Information Dec-1 5-201 0 No Information [facility], [address] [place] [address], [address], [place] tel:[phone] [facility] Behavioral Health No Information Dec-1 5-201 0 No Information PSYCHOTHERAPY, GROUP [facility], [address] [place] [address], [address], [place] tel:[phone] [facility] Behavioral Health No Information Dec-1 3-201 0 No Information [facility], [address] [place], [address], [place] tel:[phone] [facility] Behavioral Health No Information Dec-0 7-201 0 No Information GROUP PSYCHOTHERAPY [facility], [address] [place] [address], [address], [place] tel:[phone] [facility] Behavioral Health No Information Dec-0 6-201 0 No Information GROUP PSYCHOTHERAPY [facility], [address] [place] [address], [address], [place] tel:[phone] [facility] Behavioral Health No Information Nov-2 9-201 0 No Information [facility], [address] [place] [address], [address], [place] tel:[phone] [facility] Behavioral Health No Information Nov-2 4-201 0 No Information GROUP PSYCHOTHERAPY [facility], [address] [place] [address], [address], [place] tel:[phone] [facility] Behavioral Health No Information Nov-2 2-201 0 No Information [facility], [address] [place], [address], [place] tel:[phone] [facility] Behavioral Health No Information Nov-1 6-201 0 No Information GROUP PSYCHOTHERAPY [facility], [address] [place] [address], [facility], [place] tel:[phone] [facility] Behavioral Health No Information Nov-1 5-201 0 No Information [facility], [address] [place] [address], [facility], [place] tel:[phone] [facility] Behavioral Health No Information Nov-0 9-201 0 No Information GROUP PSYCHOTHERAPY [facility], [address] [place] [address], [address], [place] tel:[phone] [facility] Behavioral Health No Information Nov-0 8-201 0 No Information [facility], [address] [place] [address], [facility], [place] tel:[phone] [facility] Behavioral Health No Information Nov-0 4-201 0 No Information GROUP PSYCHOTHERAPY [facility], [address] [place] [address], [facility], [place] tel:[phone] [facility] Behavioral Health No Information Nov-0 1-201 0 No Information [facility], [address] [place] [address], [address], [place] tel:[phone] [facility] Behavioral Health No Information Feb-2 9 0 No Information [facility], [address] [place] [address], [address], [place] tel:[phone] [facility] Behavioral Health No Information Feb-2 6- 0 No Information [facility], [address] [place] [address], [address], [place] tel:[phone] Historic Immunization Location No Information Feb-2 6-201 0 No Information DETAILED OUT/PT [facility], [address] [place] [address], [address], [place] tel:[phone] [facility] Adult Medicine No Information Feb-2 6- 0 No Information [facility], [address] [place] [address], [address], [place] tel:[phone] Conversion No Information Feb-2 5-201 0 No Information [facility], [address] [place] [address], [address], [place] tel:[phone] [facility] Behavioral Health No Information Oct-2 5-201 0 No Information [facility], [address] [place] [address], [address], [place] tel:[phone] Conversion No Information Oct-2 0-201 0 No Information [facility], [address] [place] [address], [address], [place] tel:[phone] [facility] Behavioral Health No Information Oct-2 0-201 0 No Information [facility], [address] [place] [address], [address], [place] tel:[phone] [facility] Behavioral Health No Information Sep-3 0-201 0 No Information [facility], [address] [place] [address], [address], [place] tel:[phone] Conversion ALCOHOL ABUSE Sep-3 0-201 0 No Information [facility], [address] [place] [address], [address], [place] tel:[phone] Conversion COUNSELING ON SUBSTANCE USE AND ABUSELACK OF PHYSICAL EXERCISE Sep-2 7-201 0 No Information [facility], [address] [place] [address], [address], [place] tel:[phone] [facility] Behavioral Health No Information Sep-2 0-201 0 No Information [facility], [address] [place] [address], [address], [place] tel:[phone] Conversion No Information Sep-2 0-201 0 No Information [facility], [address] [place] [address], [address], [place] tel:[phone] [facility] Behavioral Health No Information Sep-0 9-201 0 No Information DETAILED OUT/PT [facility], [address] [place] [address], [address], [place] tel:[phone] [facility] Adult Medicine No Information Dec-2 4 0 No Information [facility], [address] [place] [address], [address], [place] tel:[phone] Conversion No Information Aug-2 4-201 0 No Information [facility], [address] [place] [address], [address], [place] tel:[phone] Conversion NONDEPENDENT ABUSE OF DRUGS, OPIOID ABUSE, EPISODICANXIE TY STATE, UNSPECIFIEDHY POGLYCEMIA UNSPECIFIED, NON-DIABETIC 0 No Information [facility], [address] [place] [address], [address], [place] tel:[phone] [facility] Behavioral Health No Information 0 No Information [facility], [address] [place] [address], [address], [place] tel:[phone] [facility] Behavioral Health No Information 0 No Information [facility], [address] [place] [address], [address], [place] tel:[phone] [facility] Behavioral Health No Information 0 No Information [facility], [address] [place] [address], [address], [place] tel:[phone] [facility] Behavioral Health No Information 0 No Information DETAILED OUT/PT [facility], [address] [place] [address], [address], [place] tel:[phone] [facility] Adult Medicine No Information 0 No Information [facility], [address] [place] [address], [address], [place] tel:[phone] Conversion REFLUX ESOPHAGITISFA TIGUE/MALAISE NONDEPENDENT ABUSE OF DRUGS, OPIOID ABUSE, IN REMISSION 0 No Information [facility], [address] [place] [address], [address], [place] tel:[phone] Conversion 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 0 No Information [facility], [address] [place] [address], [address], [place] tel:[phone] [facility] Behavioral Health No Information 0 No Information [facility], [address] [place] [address], [address], [place] tel:[phone] [facility] Behavioral Health No Information 0 No Information [facility], [address] [place] [address], [address], [place] tel:[phone] [facility] Behavioral Health No Information 0 No Information [facility], [address] [place] [address], [address], [place] tel:[phone] [facility] Behavioral Health No Information 0 No Information [facility], [address] [place] [address], [facility], [place] tel:[phone] [facility] Adult Medicine No Information 0 No Information [facility], [address] [place] [address], [facility], [place] tel:[phone] Conversion COCAINE DEPENDENCE, EPISODICOSTEO ARTHROSIS, GENERALIZED, SITE UNSPECIFIED 0 No Information [facility], [address] [place] [address], [facility], [place] tel:[phone] Conversion HUMAN IMMUNODEFICIE NCY VIRUS [HIV] DISEASE 0 No Information [facility], [address] [place] [address], [facility], [place] tel:[phone] Conversion HEPATITIS C (CHRONIC)DELGADO ETT'S ESOPHAGUSOTHE R AND UNSPECIFIED ALCOHOL DEPENDENCE, IN REMISSION 9 No Information [facility]AILED OUT[facility], [address] [place] [address], [facility], [place] tel:[phone] [facility] Adult Medicine No Information 9 No Information DETAILED OUT/PT [facility], [address] [place] [address], [facility], [place] tel:[phone] [facility] Adult Medicine No Information 9 No Information [facility], [address] [place] [address], [facility], [place] tel:[phone] Conversion INSOMNIA, UNSPECIFIEDOT HER CHRONIC PAIN 9 No Information DETAILED OUT/PT [facility], [address] [place] [address], [facility], [place] tel:[phone] [facility] Adult Medicine No Information 9 No Information [facility], [address] [place] [address], [facility], [place] tel:[phone] Conversion CHOLELITHIASI SESOPHAGITIS UNSPECIFIEDMO TTLED TEETHNONDEPEN DENT OTHER MIXED OR UNSPECIFIED DRUG ABUSE IN REMISSION 9 No Information DETAILED OUT/PT [facility], [address] [place] [address], [facility], [place] tel:[phone] [facility] Adult Medicine No Information 9 No Information [facility], [address] [place] [address], [address], [place] tel:[phone] Conversion HEARTBURNCALC ULUS OF GALLBLADDER WITH OTHER CHOLECYSTITIS WITHOUT OBSTRUCTIONOT HER SPECIFIED ASTHMA 9 No Information [facility], [address] [place] [address], [address], [place] tel:[phone] Conversion ACUTE PAINACUTE CHOLECYSTITIS 9 No Information DETAILED OUT/PT [facility], [address] [place] [address], [address], [place] tel:[phone] [facility] Adult Medicine No Information 9 No Information DETAILED OUT/PT [facility], [address] [place] [address], [address], [place] tel:[phone] [facility] Adult Medicine No Information 9 No Information [facility], [address] [place] [address], [address], [place] tel:[phone] Conversion UNSPECIFIED ESSENTIAL HYPERTENSIONP REMENOPAUSAL MENORRHAGIA 9 No Information [facility], [address] [place] [address], [address], [place] tel:[phone] [facility] Behavioral Health No Information 0 8 No Information [facility], [address] [place] [address], [address], [place] tel:[phone] Conversion ESOPHAGEAL REFLUX 8 No Information DETAILED OUT/PT [facility], [address] [place] [address], [address], [place] tel:[phone] [facility] Adult Medicine No Information 200 8 No Information [facility], [address] [place] [address], [address], [place] tel:[phone] [facility] Behavioral Health No Information Sep-0 9200 8 No Information MINIMAL OUT/PT [facility], [address] [place] [address], [address], [place] tel:[phone] [facility] Adult Medicine No Information Sep-0 2200 8 No Information PREVENTIVE COUNSELING, INDIV [facility], [address] [place] [address], [address], [place] tel:[phone] [facility] Adult Medicine No Information Dec-0 4-200 8 No Information DETAILED OUT/PT [facility], [address] [place], [address], [place] tel:[phone] [facility] Adult Medicine No Information Nov-1 4-200 8 No Information [facility], [address] [place], [address], [place] tel:[phone] [facility] Behavioral Health No Information Nov-0 8-200 8 No Information [facility], [address] [place], [address], [place] tel:[phone] [facility] Behavioral Health No Information Vasyl-2 3-200 8 No Information MINIMAL OUT/PT [facility], [address] [place], [address], [place] tel:[phone] [facility] Adult Medicine No Information Vasyl-1 8-200 8 No Information EXPANDED OUT/PT [facility], [address] [place], [address], [place] tel:[phone] [facility] Adult Medicine No Information Vasyl-0 7-200 8 No Information [facility], [address] [place], [address], [place] tel:[phone] [facility] Behavioral Health No Information September-2 2-200 8 No Information MINIMAL OUT/PT [facility], [address] [place] [address], [address], [place] tel:[phone] [facility] Adult Medicine No Information September-1 3-200 8 No Information DETAILED OUT/PT [facility], [address] [place], [address], [place] tel:[phone] [facility] Adult Medicine No Information September-1 2-200 8 No Information [facility], [address] [place] [address], [address], [place] tel:[phone] Conversion UNSPECIFIED DRUG DEPENDENCE UNSPECIFIED USE May-0 6-200 8 No Information [facility], [address] [place] [address], [address], [place] tel:[phone] [facility] Behavioral Health No Information September-0 6-200 8 No Information DETAILED OUT/PT [facility], [address] [place], [address], [place] tel:[phone] [facility] Adult Medicine No Information May-0 5-200 8 No Information [facility], [address] [place] [address], [address], [place] tel:[phone] Conversion DIZZINESS AND GIDDINESSANEM IA UNSPECIFIED May-0 5-200 8 No Information [facility], [address] [place] [address], [address], [place] tel:[phone] [facility] Behavioral Health No Information Apr-2 9-200 8 No Information [facility], [address] [place] [address], [address], [place] tel:[phone] Conversion COMBINATIONS OF DRUG DEPENDENCE EXCLUDING OPIOID TYPE DRUG UNSPECIFIED USE Apr-2 9-200 8 No Information WELL EXAM 40-64 [facility], [address] [place] [address], [address], [place] tel:[phone] [facility] No Information Apr-2 4-200 8 No Information [facility], [address] [place] [address], [address], [place] tel:[phone] Conversion ROUTINE GYNECOLOGICAL EXAMINATION Apr-2 4-200 8 No Information [facility], [address] [place] [address], [address], [place] tel:[phone] [facility] Behavioral Health No Information Apr-2 4-200 8 No Information PREVENTIVE COUNSELING, INDIV [facility], [address] [place] [address], [address], [place] tel:[phone] [facility] Adult Medicine No Information Apr-2 2-200 8 No Information [facility], [address] [place] [address], [address], [place] tel:[phone] [facility] Behavioral Health No Information Apr-0 8-200 8 No Information [facility], [address] [place] [address], [address], [place] tel:[phone] [facility] Behavioral Health No Information Apr-0 3-200 8 No Information DETAILED OUT/PT [facility], [address] [place] [address], [address], [place] tel:[phone] [facility] Adult Medicine No Information Apr-0 2-200 8 No Information [facility], [address] [place] [address], [facility], [place] tel:[phone] [facility] Behavioral Health No Information Jul-2 0-200 8 No Information [facility], [address] [place] [address], [address], [place] tel:[phone] [facility] Behavioral Health No Information Jul- 3200 8 No Information [facility], [address] [place] [address], [address], [place] tel:[phone] [facility] Behavioral Health No Information Feb-2 8200 8 No Information [facility], [address] [place] [address], [address], [place] tel:[phone] Conversion MAJOR DEPRESSIVE AFFECTIVE DISORDER RECURRENT EPISODE MODERATE DEGREE Feb-2 8 8 No Information DETAILED OUT/PT [facility], [address] [place] [address], [facility], [place] tel:[phone] [facility] Adult Medicine No Information Feb-2 7 8 No Information [facility], [address] [place] [address], [facility], [place] tel:[phone] [facility] Behavioral Health No Information b-2 200 8 No Information MINIMAL OUT/PT [facility], [address] [place] [address], [address], [place] tel:[phone] [facility] Adult Medicine No Information b-1 8200 8 No Information [facility], [address] [place] [address], [address], [place] tel:[phone] [facility] Behavioral Health No Information Feb-0 7 8 No Information [facility], [address] [place] [address], [address], [place] tel:[phone] Conversion COCAINE DEPENDENCEMAJ OR DEPRESSION, RECURRENT Feb-0 7200 8 No Information DETAILED OUT/PT [facility], [address] [place] [address], [address], [place] tel:[phone] [facility] Adult Medicine No Information 0 8 No Information [facility], [address] [place] [address], [address], [place] tel:[phone] Conversion FLU SHOTROUTINE GENERAL MEDICAL EXAMINATION 0 8 No Information DETAILED OUT/PT [facility], [address] [place] [address], [address], [place] tel:[phone] [facility] Adult Medicine No Information 8 No Information [facility], [address] [place] [address], [address], [place] tel:[phone] Conversion ENCOUNTERS FOR UNSPECIFIED ADMINISTRATIV E PURPOSE 8 No Information FOCUSED OUT/PT [facility], [address] [place] [address], [address], [place] tel:[phone] [facility] Adult Medicine No Information 8 No Information [facility], [address] [place] [address], [address], [place] tel:[phone] Conversion SYMPTOMATIC MENOPAUSAL OR FEMALE CLIMACTERIC STATESUNSPECI FIED VIRAL HEPATITIS CSCREENING EXAMINATION FOR PULMONARY TUBERCULOSIS 8 No Information EXPANDED OUT/PT [facility], [address] [place] [address], [address], [place] tel:[phone] [id number] [facility] Adult Medicine No Information 8 No Information [facility], [address] [place] [address], [id number], [place] tel:[phone] Conversion ALCOHOL DEPENDENCEOPI OID DEPENDENCEDEP RESSIVE DISORDER, NOT ELSEWHERE CLASSIFIED 8 No Information [facility], [address] [place] [address], [id number], [place] tel:[phone] [facility] Behavioral Health No Information 8 No Information FOCUSED OUT/PT [facility], [address] [place] [address], [id number], [place] tel:[phone] [facility] Adult Medicine No Information 7 No Information DETAILED OUT/PT [facility], [address] [place] [address], [id number], [place] tel:[phone] [facility] Adult Medicine No Information 7 No Information [facility], [address] [place] [address], [id number], [place] tel:[phone] Conversion BRONCHITIS, ACUTE 7 No Information DETAILED OUT/PT [facility], [address] [place] [address], [id number], [place] tel:[phone] [facility] Adult Medicine No Information 7 No Information DETAILED OUT/PT [facility], [address] [place] [address], [address], [place] tel:[phone] [facility] Adult Medicine No Information 7 No Information [facility], [address] [place] [address], [id number], [place] tel:[phone] Conversion HYPOTHYROIDIS M, UNSPECIFIED AQUIREDHEPATI TIS C WITHOUT MENTION OF HEPATIC COMA 7 No Information EXPANDED OUT/PT [facility], [address] [place] [address], [id number], [place] tel:[phone] [facility] Adult Medicine No Information No Information EXPANDED OUT/PT [facility], [address] [place] [address], [facility], [place] tel:[phone] [facility] Adult Medicine No Information 7 No Information [facility], [address] [place] [address], [facility], [place] tel:[phone] Conversion SCREENING EXAMINATION FOR VENEREAL DISEASETORTIC OLLIS UNSPECIFIED 7 No Information NEW Level 3 - Detailed [facility], [address] [place] [address], [address], [place] tel:[phone] [facility] Adult Medicine No Information 7 No Information [facility], [address] [place] [address], [facility], [place] tel:[phone] Conversion PNEUMONIA ORGANISM UNSPECIFIEDCO [facility] 7 No Information Family History Family Member Type Diagnosis Age At Onset No Information Immunizations Vaccine Date Status Comments FLU VACCINE ADULT (3+ YEARS) administered Source: New Immunization Record HEPATITIS B IMMUNIZATION administered [place] rce: New Immunization Record Payers Payer name Insurance type Covered libertarian ID Authoriza tion(s) No Information Social History [...]
[2025-04-11 09:33] VITALS: BP 128/72; PULSE 81; TEMP 36.1; O2SAT 91; BMI 35.2
--- NOTE | 2025-04-11 09:35 | AM.OFFVISMDC ---
Intake Vital Signs 04/11/25 09:33 Height 5 ft 4 in Weight 205 lb 6 oz BMI 35.2 BP 128/72 Blood Pressure Location Lt brachial Position Sitting Pulse 81 Pulse Source Pulse Oximeter Temp 97.0 F Temp Source Temporal Artery Scan Pulse Oximetry (%) 91 L Oxygen Delivery Method Room Air Intake Visit Reasons: annual exam Accompanied by: Significant Other Allergies Penicillins (PENICILLINS) Allergy (Intermediate, Verified 04/11/25 09:48) RASH (CHILDHOOD ALLERGY) Medication List - Last Reconciled 04/11/25 by Amari Mckeon PA-C albuterol sulfate 90 mcg/actuation (Ventolin HFA) 1 puff inhalation Q4H PRN atorvastatin 10 mg PO DAILY 90 days bisacodyl (Dulcolax (bisacodyl)) 5 mg PO DAILY buprenorphine-naloxone 12-3 mg (Suboxone) 1 film buccal Q24H cane As directed clonazepam 1 mg PO BEDTIME 30 days clonidine HCl 0.2 mg PO BEDTIME 90 days fluoxetine 60 mg (3 x 20 mg) PO DAILY fluticasone furoate 200 mcg/actuation (Arnuity Ellipta) 1 inh inhalation DAILY hydroxyzine HCl 50 mg PO BEDTIME 30 days ibuprofen 800 mg PO DAILY PRN lidocaine 5% 1 patch topical DAILY 30 days lisinopril-hydrochlorothiazide 10-12.5 mg 1 tab PO DAILY 90 days methocarbamol 750 mg PO BID PRN 60 days methylphenidate HCl ER (Concerta) 36 mg PO DAILY 28 days naproxen 500 mg PO Q12H PRN nebulizers As directed omeprazole 40 mg PO DAILY 90 days phentermine 37.5 mg PO DAILY 28 days polyethylene glycol 3350 (Miralax) 17 grams PO BID pregabalin 150 mg PO BID 30 days propranolol 10 mg PO BID PRN 30 days trazodone 100 mg PO BEDTIME 90 days umeclidinium-vilanterol 62.5-25 mcg/actuation (Anoro Ellipta) 1 inh inhalation DAILY vitamin B complex 1 tab PO DAILY HPI annual exam HPI Details Patient is a 64-year-old female here today for an annual wellness visit. Today we discussed patient's end of life planning and given a MOLST form. Also we discussed patient's comprehensive care plan and [place] of care withdrawal scanned into patient's documents. Colon cancer screening: Colonoscopy done in 2019 polyp found tubular adenoma repeat 5 years Mammogram: Mammogram done in April of 2024, BI-RADS 2 needs repeat Vaccines: Up-to-date with COVID vaccine, pneumonia vaccine, tetanus vaccine, UTD Shingles vaccine. Need flu HPI Comments History of Present Illness Details reviewed past medical history- yes reviewed surgical / hospitalization history- yes reviewed current medications- yes reviewed family history- yes home safety throw rugs? grab bars? raised toilet seat? working smoke detectors? activities of daily living difficulty bathing or showering? difficulty dressing? difficulty using the toilet? difficulty getting in and out of bed? difficulty walking? receives help from other person's with any of the above tasks? instrumental activities of daily living uses telephone - gets to place out of walking distance- go shopping for groceries- repairs own meals- does own minor home maintenance- does own laundry- does own housework- manages own money- currently takes medication- end of life planning discussed advanced directives- yes advanced directives on file? discussed wishes expressed in advanced directives. fall risk have you had any falls with injuries in the past year? have you had 2 or more falls in the past year? fall risk assessment: [facility] Medical History (Updated 04/11/25 @ 10:33 by Amari Mckeon PA-C) Arthritis Degenerative disc disease, lumbar Back pain Fibromyalgia Thrombocytopenia Constipation Hiatal hernia Hepatitis C Sleep apnea Tremor of both hands Forgetfulness ADHD SOB (shortness of breath) Wheezing Bronchitis COPD (chronic obstructive pulmonary disease) Hypersomnia Snoring Saccular aneurysm Pulmonary embolism SARS-CoV-2 positive Opioid abuse Alcohol use disorder, severe, dependence Ganglion cyst Obese Tubular adenoma of colon Otitis externa RUQ abdominal pain GERD (gastroesophageal reflux disease) Acute anxiety Depression Insomnia Surgical History Hx of unilateral oophorectomy Hx of appendectomy History of surgery on right wrist Hx of shoulder surgery History of esophagogastroduodenoscopy (EGD) Hx of colonoscopy Previous back surgery Family History Father Alzheimer disease Mother Stroke Brother Esophageal cancer Other Mental problem Substance abuse Social History Household Members: Significant Other Household Members Other:: fiancee Housing: Apartment Are you a primary intensive care unit nurse to a significant other at home: No Do you presently have visiting nurse or other home services: No Alcohol intake: current Alcohol intake frequency: does not drink Alcohol type: hard liquor Tobacco use type: Cigarette Cigarettes Per Day: 10 Years Smoked: 40 e-Cigarette/Vaping Use: Former Use Second Hand Smoke Exposure: Yes Substance Use Type: Marijuana Advance Directives Date on File: 03/17/22 service: No Current occupational status: employed 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[employer], 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 Sexual orientation: Straight/Heterosexual Cognitive needs: Yes (cane) Hearing needs: No Vision needs: Yes (Glasses) Questionnaire Medicare Wellness Checkup [age] What gender do you identify with?: female During the past 4 weeks, how much have you been bothered by emotional problems such as feeling anxious, depressed, irritable, sad or downhearted, and blue?: quite a bit During the past 4 weeks, has your physical & emotional health limited your social activities with family, friends, neighbors, or groups?: quite a bit During the past 4 weeks, how much bodily pain have you generally had?: severe pain During the past 4 weeks, was someone available to help you if you needed & wanted help?: yes, quite a bit During the past 4 weeks, what was the hardest physical activity you could do for at least 2 minutes?: light Can you get to places out of walking distance without help? (For eg., can you travel alone on buses, taxis or drive your car?): No Can you go shopping for groceries or clothes without someone's help?: Yes Can you prepare your own meals?: Yes Can you do your housework without help?: No Because of any health problems, do you need the help of another person with your personal care needs such as eating, bathing, dressing or getting around the house?: No Can you handle your own money without help?: Yes During the past 4 weeks, how would you rate your health in general?: fair During the past 4 weeks how have things been going for you?: pretty bad Are you having difficulties driving your car?: not applicable, I don't use a car Do you always fasten your seat belt when you are in a car?: yes, usually During past 4 weeks, have you been bothered by the following: never: Teeth or denture problems? and Problems using the telephone?, seldom: Trouble eating well?, sometimes: Falling or dizzy when standing up and always: Sexual problems? and Tiredness or fatigue? Have you fallen 2 or more times in the past year?: Yes Are you afraid of falling?: Yes Are you a smoker?: yes, and I might quit During the past 4 weeks, how many drinks of wine, beer, or other alcoholic beverages did you have?: no alcohol at all Do you exercise for about 20 minutes 3 or more times a week?: yes, some of the time Have you been given information to help with the following?: no: Hazards in your house that might hurt you? and no: Keeping track of your medications? How often do you have trouble taking medicines the way you have been told to take them?: sometimes I take medicine as prescribed How confident are you that you can control & manage most of your health problems?: somewhat confident What is your race?: White Mini Mental State Exam (MMSE) Orientation What is the (year) (season) (date) (day) (month)?: year Where are we (state) (county) (town or city) (hospital) (floor)?: town or city Score Score: 2 Activity of Daily Living Bathing - sponge bath, tub bath or shower: receives no assistance (gets in/out by self, if usual bathing means Dressing - getting clothes from closets & drawers, including inner/outer garments & fasteners.: gets clothes & gets completely dressed without help Toileting - going to the 'toilet room' for urine/bowel elimination & cleaning self/arranging clothes: goes to toilet room, cleans self, arranges clothes without help Transfer: moves in & out of bed and chair without help (may use support object) Continence: controls urination/bowel movements completely by self Feeding: feeds self without help Total Score: 0 Information obtained from: patient Using telephone: independent Traveling: independent Shopping: independent Preparing meals: independent Housework: independent Taking medicine: independent Managing money: independent PHQ-9 Over the last 2 weeks, how often have you been bothered by any of the following problems? 1. Little interest or pleasure in doing things: several days 2. Feeling down, depressed, or hopeless: several days 3. Trouble falling or staying asleep, or sleeping too much: nearly every day 4. Feeling tired or having little energy: more than half the days 5. Poor appetite or overeating: more than half the days 6. Feeling bad about yourself - or that you are a failure or have let yourself or your family down: more than half the days 7. Trouble concentrating on things, such as reading the newspaper or watching television: nearly every day 8. Moving or speaking so slowly that other people could have noticed. Or the opposite - being so fidgety or restless that you have been moving around a lot more than usual: several days 9. Thoughts that you would be better off or of hurting yourself in some way: not at all Total score: 15 Depression Screening Interpretation: Positive Depression Screening Follow-up: Existing condition and In treatment Depression Screening Done: Yes 43839 - PHQ-9 Billing: Yes Source: Developed by Drs. Dannie Sandoval, Kathryn Bryant, Felipe Paulson and colleagues, with an educational rupal from [employer]. Review of Systems Const Denies body aches, Denies chills, Denies excessive sweating, Denies fatigue, Denies fever(s) and Denies headache(s) Eyes Denies blurry vision ENT Denies dysphagia, Denies vertigo, Denies dizziness, Denies headache(s), Denies hearing loss and Denies tinnitus Card Denies chest pain, Denies chest pain with activity, Denies syncope, Denies irregular heart rhythm and Denies dyspnea Resp Denies chest congestion, Denies cough, Denies hemoptysis, Denies dyspnea and Denies wheezing GI Denies abdominal pain, Denies melena, Denies hematochezia, Denies coffee ground emesis, Denies dysphagia, Denies diarrhea, Denies nausea and Denies vomiting Denies urinary frequency, Denies dysuria, Denies urinary hesitancy and Denies urinary urgency Musc Denies arthralgias, Denies limited range of motion, Denies muscle cramps and Denies muscle weakness Skin/Breast Denies rash and Denies skin ulcer Neuro Denies Abnormal speech present, Denies confusion, Denies vertigo, Denies dizziness, Denies syncope, Denies headache(s), Denies memory loss and Denies seizure-like activity Psych Denies anxiety, Denies confusion, Denies depression, Denies memory loss, Denies panic attacks and Denies paranoia Endo Denies excessive sweating, Denies fatigue, Denies flushing, Denies polydipsia and Denies polyuria Aller/Immun Denies wheezing Physical Exam Vital Signs: Last Vital Signs Temp 97.0 F 04/11/25 09:33 Pulse 81 04/11/25 09:33 BP 128/72 04/11/25 09:33 Pulse Ox 91 L 04/11/25 09:33 Oxygen Delivery Method Room Air 04/11/25 09:33 BMI result Body Mass Index 35.2 Const General: cooperative, comfortable, no acute distress, alert and awake; No confusion Orientation/consciousness: oriented to person, oriented to place, patient oriented x3 and No confusion HEENT Other: hearing screening whisper test- Head: Yes normocephalic Ears: external ears normal and TM's normal bilaterally Face and sinus: No sinus tenderness Mouth: Normal oral and palatal mucosa present and tongue normal Teeth and gingiva: dentition normal and gingiva normal Throat: Yes posterior oropharynx normal, Yes tonsils normal and Yes uvula midline Eyes Other: vision screening- 20 20 OS OD OU -using corrective lenses Conjunctivae: conjunctivae normal Sclerae: sclerae normal Pupils: Equal, round and reactive pupils present EOM: EOMs intact bilaterally Direct Ophthalmoscopy: No no photophobia Neck Neck: Yes no lymphadenopathy, No tender and Yes no JVD Thyroid: Thyroid normal Carotids: no bruits Chest Chest palpation & inspection: no tenderness Resp Effort & Inspection: normal respiratory effort, no audible wheezes, not labored and no stridor Auscultation: no crackles, no rales, no rhonchi and no wheezes Cardio Jugular venous distension: no JVD Rate: regular rate, not bradycardic and not tachycardic Rhythm: regular rhythm Bruits: no carotid bruits Peripheral pulses: Peripheral pulses 2+ throughout GI Inspection: Yes normal to inspection, No abdominal wall ecchymosis and No visible herniation Palpation (GI): Soft to palpation, nontender, no guarding, not rigid and No hepatosplenomegaly present Auscultation: normoactive bowel sounds Other: urinary incontinence? no General: Yes no CVA tenderness Back/Spine/Pelvis Back: no CVA tenderness and No back tenderness Cervical Spine: cervical ROM normal Thoracic/Lumbar Spine: thoracic and lumbar spine normal to inspection, straight leg raise negative bilaterally, No thoraco-lumbar ROM limited and No lumbar spinal tenderness Skin Lesions: no lesions Rashes: no rashes Wounds: no wounds Neuro Other: balance Romberg- normal tandem walk test- able walk-in turned test- able rise from sit to stand-delayed- within 5 seconds General: oriented to person, oriented to place, patient oriented x3, CN's II-XI intact bilaterally and No confusion Cranial nerves: Yes Equal, round and reactive pupils present and Yes Normal accommodation reflex present Cognition (Neuro): normal cognition Speech: No Abnormal speech present Gait exam (Neuro): Normal gait present Motor exam (neuro): 5/5 motor strength present throughout Extrem Right upper extremity: full ROM; no cyanosis Left upper extremity: full ROM; no cyanosis Right lower extremity: no edema Left lower extremity: no edema Psych Appearance: grossly normal Mental Status: mental status grossly normal Affect: normal affect Attitude: cooperative Thought process: Normal thought process present Office Procedures Flu Questionnaire Does the patient have a severe egg allergy?: No Does the patient have severe life threatening allergies?: No Does the patient have a fever or illness today?: No Has the patient ever had any past reaction to a flu shot?: No Immunizations Fluarix [id number] (PF) 45 mcg (15 mcg x 3)/0.5 mL IM syringe Performing Provider: Amari Mckeon PA-C [facility] Administered by: Agatha Alfonso CMA on 04/11/25 10:42 Dose Route Admin Location Dispensed Lot Number Expiration Date [employer] 0.5 mL IM Left Deltoid 0.5 mL [id number] 11/20/25 88915-546-64 [employer] VIS Given Date VIS Provided VIS Publication Date 04/11/25 Single Vaccine 24 Eligibility Eligibility Date Funding Source Not [facility] Eligible 04/11/25 Private Assessment & Plan Assessment & Plan (1) Annual wellness visit: Code(s): Z00.00 - Encounter for general adult medical examination without abnormal findings Plan: As per HPI (2) Class 2 obesity: Code(s): E66.812 - Obesity, class 2 Plan: Patient interested in reestablishing an appointment with weight management program. GLP 1 have not been covered She was on phentermine for few months though we have stopped this medication due to fears of dependency and cardiovascular effects. (3) Breast cancer screening: Code(s): Z12.39 - Encounter for other screening for malignant neoplasm of breast Qualifiers: Breast cancer screening modality: mammogram Qualified Code(s): Z12.31 - Encounter for screening mammogram for malignant neoplasm of breast Plan: Needs a mammogram (4) Colon cancer screening: Code(s): Z12.11 - Encounter for screening for malignant neoplasm of colon Plan: Needs up-to-date colonoscopy (5) Cervical cancer screening: Code(s): Z12.4 - Encounter for screening for malignant neoplasm of cervix Plan: Needs Pap screening (6) Postmenopausal: Code(s): Z78.0 - Asymptomatic menopausal state Plan: Willing to do bone density Orders: Orders XR DEXA axial skeleton Today Z78.0 - Asymptomatic menopausal state Influenza [id number] Immunization Today Z23 - Encounter for immunization Referrals DATA MODELER Referral Z12.4 - Encounter for screening for malignant neoplasm of cervix Gastroenterology Referral Z12.11 - Encounter for screening for malignant neoplasm of colon Medical Weight Management Referral E66.812 - Obesity, class 2 Medications: On Hold trazodone Hold Comment: Doctor's Order 100 mg PO BEDTIME 90 days 90 tabs 1RF F43.10 - Post-traumatic stress disorder, unspecified Quality Reporting (2019) Adult ([facility] 138/2/22/69) Smoking risk assessment performed?: Yes Depression/Bipolar (159/160/161/177) PHQ-9: Total score: 15 Coding Level of Care Code Medicare First (G0438) Diagnoses Annual wellness visit Z00.00 Class 2 obesity E66.812 Encounter for screening mammogram for malignant neoplasm of breast Z12.31 Breast cancer screening modality: mammogram Colon cancer screening Z12.11 Cervical cancer screening Z12.4 Postmenopausal Z78.0 CPT Codes Advance Care Planning - Time spent: 1-15 minutes, on File ([id number]) Additional Codes PHQ-9 - 03558 - PHQ-9 Billing: Yes ([id number]) Advance Care Planning Advance Care Planning discussion: Completed/Scanned Date of discussion: 04/11/25 Forms completed: CARLOS Time spent: 1-15 minutes, on File Actual minutes spent: 6
--- OUTSIDE RECORDS SUMMARY | 2025-04-11 17:26 | XMS_ITS | Clinical Summary ---
Author Organization [facility] Address [address] [place] [id number] Phone Care Team Providers Care Turkey Boner Name Role Phone Kait Martínez MD Primary [...] Insurance ACO ACO ACO ACO Care Teams Turkey Boner Relationship Specialty Start Date End Date Kait Martínez MD [address] [place] [address] PCP - General Internal Medicine 08/05/18 Additional Source Comments The information contained in this document represents components of the legal health record. It is not the complete legal health record.[facility]
--- OUTSIDE RECORDS SUMMARY | 2025-04-11 17:27 | XMS_ITS | Clinical Summary ---
Author Organization [facility], Address [address] [place] [address] Phone Care Team Providers Care Block Feeder Name Role Phone Kait Martínez MD Primary Care Provider [phone] Allergies Active Allergy Reactions Criticality Noted Date [...] region 12/30/2022 Overview (12/30/2022): left Anxiety 12/30/2022 Post-traumatic stress disorder 12/30/2022 Otitis 12/30/2022 Epidermoid cyst [...] patient's age to complete this topic Insurance [facility] Medicaid Care Teams Block Feeder Relationship Specialty Start Date End Date Kait Martínez MD [address] [place], [place] PCP - General Internal Medicine 05/31/24
== END 2025-04-11 10:47 | disposition home or self-care (01) ==
LOC: HO.HMCH 09:28
PROVIDERS: PCP Physician Assistant; Visit Provider Physician Assistant
DX: Z00.00 Encounter for general adult medical examination without abnormal findings (principal); E66.812 Obesity, class 2; Z68.35 Body mass index [BMI] 35.0-35.9, adult; Z78.0 Asymptomatic menopausal state; Z12.31 Encounter for screening mammogram for malignant neoplasm of breast; Z12.11 Encounter for screening for malignant neoplasm of colon; Z23 Encounter for immunization

== ENCOUNTER → 2025-04-11 09:28 | Outpatient (BNVA) | payer MEDICARE, MEDICAID, SELFPAY | PROVIDERS: PCP Physician Assistant; Visit Provider Physician Assistant | DX: Z13.31 Encounter for screening for depression (principal); Z23 Encounter for immunization | CPT/HCPCS: 90471; 90656; 96127 ==

== ENCOUNTER 2025-05-08 13:21 | Outpatient (REF) | payer MEDICARE, MEDICAID, SELFPAY ==
--- NOTE | ~2025-05-08 | CT_ITS ---
EXAMINATION: CT LOW-DOSE SCREENING CHEST WITHOUT CONTRAST CLINICAL INFORMATION: 64-year-old female, personal history of smoking. Current smoker. 40 pack years, lung cancer screening. COMPARISON: [facility] 02/07/2014. TECHNIQUE: Multidetector volumetric CT imaging of the chest is performed on a Siemens SOMATOM Definition scanner without contrast using low dose technique. Additional 2D coronal and sagittal reformatted images and axial 3D maximum intensity projection (MIP) images are generated on the CT workstation. This CT examination was performed using dose optimization techniques as appropriate, variously including the following: *Automated exposure control *Adjustment of mA and/or kV according to patient size (this includes techniques or standardized protocols for targeted exams where dose is matched to indication/reason for exam; i.e. extremities or head) *Use of iterative reconstruction technique FINDINGS: PULMONARY NODULES: There are a few scattered calcified granulomata, unchanged. These are benign. There is a stable 5 mm average diameter lymph node in the left major fissure, unchanged (series 4, image 215). 4 mm nodule medial left lower lobe (series 4, image 261), unchanged. There is no new or enlarging pulmonary nodule. LUNGS: Lungs are symmetrically expanded bilaterally. There is mild to moderate paraseptal and centrilobular emphysema present without change. Small airways demonstrate no significant thickening or bronchiectasis. Mild subpleural scarring is present in the anterior aspects of both upper lobes. Mild scarring in the lingula and right middle lobe is present. No consolidations or abnormal interstitial opacities. Central airways appear patent. MEDIASTINUM: Thyroid is not well seen. It may not be included in the imaging. There are a few top normal lymph nodes present in the mediastinum, for example, a 1.1 cm lymph node is present in the precarinal lymph node with a fatty hilum. There is a calcified right paratracheal lymph node (series 3, image 10). These are all stable. The aorta is normal in caliber with mild to moderate atheromatous calcification. There is no aneurysm. The pulmonary trunk is normal in size. The heart size is normal. There is no pericardial effusion. Mildly patulous esophagus present, with a small amount of fluid in the mid aspect. This likely indicates reflux. CORONARY ARTERY CALCIFICATION: Minimal. CHEST WALL/AXILLA: There are no masses or abnormal lymph nodes. UPPER ABDOMEN: There are numerous tiny calcifications seen throughout the pancreas in keeping with chronic pancreatitis. Pancreas otherwise normal. Remainder the imaged upper abdominal contents appear normal. OSSEOUS STRUCTURES: No suspicious lytic or blastic bone lesions. There are stable degenerative changes within the spine noted CT/CT lung screening IMPRESSION: 1. A few scattered pulmonary nodules which are stable from the prior exams. There are no new or enlarging suspicious nodules. 2. There is mild to moderate paraseptal and centrilobular emphysema. There is no definite active lung disease. 3. There are ancillary findings as discussed in the body of the report. ASSESSMENT: 1. Lung-RADS Category 2: Benign appearance or behavior of nodules. 2. Lung-RADS Category S: None. RECOMMENDATION: Continued routine annual low-dose CT lung screening in 1 year is recommended. An order for CT CHEST LOW DOSE CANCER SCREENING ([id number]) can be placed. \ Electronically signed by: Angelo Bah MD 05/08/2025 02:27 PM [facility] [place] [place]
--- OUTSIDE RECORDS SUMMARY | 2025-05-08 17:25 | XMS_ITS | Clinical Summary ---
Author Organization [facility] Address [address] [place] [id number] Phone Care Team Providers Care Jewelry Setter Name Role Phone Kait Martínez MD Primary [...] Insurance ACO ACO ACO ACO Care Teams Jewelry Setter Relationship Specialty Start Date End Date Kait Martínez MD [address] [place] [address] PCP - General Internal Medicine 08/05/18 Additional Source Comments The information contained in this document represents components of the legal health record. It is not the complete legal health record.[facility]
== END 2025-05-08 13:22 | disposition home or self-care (01) ==
LOC: HO.CT 13:21
PROVIDERS: PCP Physician Assistant; Visit Provider Internal Medicine Pulmonary Disease
DX: Z87.891 Personal history of nicotine dependence (principal)
CPT/HCPCS: 71271

== ENCOUNTER → 2025-05-08 13:23 | Outpatient (BNV) | payer MEDICARE, MEDICAID, SELFPAY | PROVIDERS: PCP Physician Assistant; Visit Provider Radiology Diagnostic Radiology | DX: Z87.891 Personal history of nicotine dependence (principal) | CPT/HCPCS: 71271 ==